=== PATIENT | male | born 1965 | race Caucasian/White ===

== ENCOUNTER 2016-07-19 10:51 | Inpatient (IN) | payer MEDICARE, OTHER ==
[2016-07-16 15:13] VITALS: BMI 29.2
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
[~2016-07-19 10:51] MED LIST: ACETAMINOPHEN IV (For NPO) 1,000 MG in EMPTY BAG 1 BAG IVPB ONE; DEXAMETHASONE SOD PHOSPHATE 10 MG/ML 1 ML VIAL IV ONE; HEPARIN SODIUM,PORCINE 5,000 UNIT/ML 1 ML VIAL SQ ONE; LACTATED RINGERS 1,000 ML IV SCH; ONDANSETRON 4 MG/2 ML VIAL IVP ONE; ceFAZolin 2 GM in SODIUM CHLORIDE 0.9% 100 ML IVPB ONE
[2016-07-19] MEDS ORDERED: VANCOMYCIN 1,500 MG in SODIUM CHLORIDE 0.9% 250 ML IVPB ONE (11:30)
[2016-07-19] MEDS ORDERED: LIDOCAINE 1% 20 ML VIAL (10MG/ML) FOR IV START INTRADERMA ONE (11:54)
[2016-07-19] MEDS ORDERED: MIDAZOLAM 2 MG/2 ML VIAL ONE (13:13)
[2016-07-19] MEDS ORDERED: ROCURONIUM BROMIDE 10 MG/ML 10 ML VIAL IV ONE (13:13)
[2016-07-19] MEDS ORDERED: NEOSTIGMINE 1 MG/ML 10 ML VIAL ONE (13:13)
[2016-07-19] MEDS ORDERED: SUCCINYLCHOLINE CHLORIDE 100 MG/5 ML SYR IV ONE (13:13)
[2016-07-19] MEDS ORDERED: LIDOCAINE 1% INJ 10MG/ML (20 ML MDV) ONE (13:13)
[2016-07-19] MEDS ORDERED: ePHEDrine 50 MG/ML 1 ML AMP ONE (13:13)
[2016-07-19] MEDS ORDERED: HYDROmorphone (PF) 1 MG/ML ONE (13:13)
[2016-07-19] MEDS ORDERED: PHENYLEPHRINE-0.9% NACL SYG 1 MG/10 ML SYRINGE ONE (13:13)
[2016-07-19] MEDS ORDERED: KETAMINE 10 MG/ML 20 ML VIAL ONE (13:13)
[2016-07-19] MEDS ORDERED: fentaNYL (PF) 50 MCG/ML 2 ML AMP ONE (13:13)
[2016-07-19] MEDS ORDERED: GLYCOPYRROLATE 0.2 MG/ML 2 ML VIAL ONE (13:13)
[2016-07-19] MEDS ORDERED: BUPIVACAIN-EPI 0.25%-1:200,000 30 ML VIAL SQ ONE (13:13)
[2016-07-19] MEDS ORDERED: PROPOFOL 10 MG/ML 20 ML VIAL IV ONE (13:13)
[2016-07-19] MEDS ORDERED: LACTATED RINGERS 1,000 ML IV ONE ×2 (14:02→16:24)
[2016-07-19] MEDS ORDERED: ONDANSETRON 4 MG/2 ML VIAL IVP PRN (17:03)
[2016-07-19] MEDS ORDERED: HYDROcodone/APAP 5-325MG 1 EACH TAB PO PRN (17:03)
[2016-07-19] MEDS ORDERED: NALOXONE 0.4 MG/ML 1 ML VIAL IV PRN ×2 (17:03→17:06)
--- NOTE | 2016-07-19 17:15 | P.PCN ---
Date of Procedure: 07/19/16 Preoperative Diagnosis: Chronic abdominal pain, history of multiple recurrent ventral hernia repairs, previous history of abdominal truncal skin third-degree multiple skin grafts, history of chronic MRSA infection Postoperative Diagnosis: Same, internal hernia of the greater omentum along lower abdomen, adhesions small bowel to mesh, acute appendicitis with appendicolith Procedure(s) Performed: Open removal of mesh, 15 x 20 cm, open appendectomy, takedown of internal hernia greater omentum to abdominal wall lower abdomen left, lysis of adhesions over 1 hour, bilateral rectus muscle advancement flap were 12 cm, repair of 20 x 12 cm recurrent ventral hernia without incarceration, placement of NINA drain peritoneal cavity, placement of NINA drain abdominal wall flap, abdominal washout 2 L Anesthesia: GETA, local (90) Surgeon: Elvia Juarez Estimated Blood Loss (ml): 150 Pathology: other (Mesh extraction, appendix with appendicoliths) Condition: stable Disposition: floor Operative Findings: Multiple appendicoliths with early appendicitis requiring appendectomy, internal hernia greater omentum to anterior abdominal wall lower abdomen resected, jejunum adhered to abdominal wall mesh lysed and freed from previous mesh repair
[2016-07-19] MEDS: HYDROmorphone 1 MG/ML 1 ML SYRINGE IVP PRN ×2 (17:35→17:40)
[2016-07-19] MEDS ORDERED: VANCOMYCIN 1,250 MG in SODIUM CHLORIDE 0.9% 250 ML IVPB SCH (18:30)
[2016-07-19] MEDS: HYDROmorphone PCA 5 MG/25 ML SYRINGE IV PRN (19:23)
[2016-07-19] MEDS: DEXTROSE 5%-0.9% NACL 1,000 ML IV SCH (19:29)
[2016-07-19] MEDS: METHYLPHENIDATE HCL 10 MG TAB PO SCH (19:33)
[2016-07-19] MEDS ORDERED: QUEtiapine 200 MG TAB PO SCH (21:00)
[2016-07-19] MEDS: SYMBICORT 160-4.5 MCG INHALER INHALATION SCH (21:15)
[2016-07-19] MEDS: lamoTRIgine 100 MG TAB PO SCH (21:36)
[2016-07-19] MEDS: clonazePAM 1 MG TAB PO SCH (21:40)
[2016-07-19 21:42] LABS: Basophils % (A) 0 %; CH 31.1; CHCM 33.1; Eosinophils # (A) 0.1 k/uL (0-0.7); Eosinophils % (A) 1 %; HCT 41.7 % (39.0-53.0); HDW 2.62; HGB 13.5 gm/dL (13.0-17.5); Luc % (Auto) 1; Lymphocytes # (A) 0.6 k/uL (1.0-4.8); Lymphocytes % (A) 5 %; MCH 30.5 pg (25.0-35.0); MCHC 32.3 g/dL (31.0-37.0); MCV 94.5 fL (80.0-100.0); Mean Platelet Volume 7.8; Monocytes # (A) 0.7 k/uL (0-1.0); Monocytes % (A) 5 %; Neutrophils # (A) 12.3 k/uL (1.3-7.7); Neutrophils % (A) 89 %; RBC 4.42 m/uL (4.30-5.90); RDW 14.1 % (11.5-15.5); WBC 13.9 k/uL (3.8-10.6); WBC (Perox) 14.31
[2016-07-19 21:58] LABS: Anion Gap 11 mmol/L; Blood Urea Nitrogen 15 mg/dL (9-20); Calcium 8.6 mg/dL (8.4-10.2); Carbon Dioxide 26 mmol/L (22-30); Chloride 105 mmol/L (98-107); Glucose 132 mg/dL (74-99); Iron 47 ug/dL (49-181); Non-African American GFR(MDRD) >60 (>60 ml/min/1.73 sqM); Phosphorous 3.9 mg/dL (2.5-4.5); Potassium 4.4 mmol/L (3.5-5.1); Sodium 142 mmol/L (137-145)
[2016-07-19 22:07] LABS: % Iron Saturation 17.8 % (20-50); Total Iron Binding Capacity 264 ug/dL (261-462)
[2016-07-20] MEDS ORDERED: HYDROcodone/APAP 5-325MG 1 EACH TAB ONE (03:00)
[2016-07-20] MEDS ORDERED: HYDROmorphone PCA 5 MG/25 ML SYRINGE IV ONE (03:00)
[2016-07-20 05:22] VITALS: RESP 16
[2016-07-20] MEDS: MAGNESIUM SULFATE-D5W PMX 1 GM in DEXTROSE/WATER 1 100ML.BAG IVPB SCH ×3 (05:45→05:48)
[2016-07-20] MEDS: DEXTROSE 5%-0.9% NACL 1,000 ML IV SCH ×2 (05:47→12:04)
[2016-07-20] MEDS ORDERED: LEVOTHYROXINE 50 MCG TAB PO SCH (06:30)
[2016-07-20] MEDS ORDERED: PANTOPRAZOLE 40 MG TABLET PO SCH (07:30)
[2016-07-20 07:34] LABS: Basophils % (A) 0 %; CH 30.9; CHCM 33.1; Eosinophils % (A) 0 %; HCT 39.2 % (39.0-53.0); HDW 2.58; HGB 12.9 gm/dL (13.0-17.5); Luc # (Auto) 0.14; Luc % (Auto) 1; Lymphocytes # (A) 1.3 k/uL (1.0-4.8); Lymphocytes % (A) 10 %; MCH 30.9 pg (25.0-35.0); MCHC 32.9 g/dL (31.0-37.0); MCV 93.8 fL (80.0-100.0); Mean Platelet Volume 7.8; Monocytes # (A) 0.6 k/uL (0-1.0); Monocytes % (A) 5 %; Neutrophils % (A) 83 %; RBC 4.18 m/uL (4.30-5.90); WBC (Perox) 12.52
[2016-07-20 07:38] LABS: Anion Gap 9 mmol/L; Blood Urea Nitrogen 12 mg/dL (9-20); Calcium 8.3 mg/dL (8.4-10.2); Carbon Dioxide 28 mmol/L (22-30); Chloride 105 mmol/L (98-107); Glucose 127 mg/dL (74-99); Magnesium 2.8 mg/dL (1.6-2.3); Non-African American GFR(MDRD) >60 (>60 ml/min/1.73 sqM); Phosphorous 3.6 mg/dL (2.5-4.5); Potassium 4.3 mmol/L (3.5-5.1); Sodium 142 mmol/L (137-145)
[2016-07-20] MEDS: SYMBICORT 160-4.5 MCG INHALER INHALATION SCH (07:48)
[2016-07-20] MEDS: HYDROmorphone PCA 5 MG/25 ML SYRINGE IV PRN (08:30)
[2016-07-20] MEDS: METHYLPHENIDATE HCL 10 MG TAB PO SCH (08:40)
[2016-07-20] MEDS: lamoTRIgine 100 MG TAB PO SCH (08:41)
[2016-07-20] MEDS: clonazePAM 1 MG TAB PO SCH (08:41)
[2016-07-20] MEDS ORDERED: SODIUM FERRIC GLUCONAT-SUCROSE 125 MG in SODIUM CHLORIDE 0.9% 100 ML IVPB SCH (09:00)
[2016-07-20] MEDS ORDERED: DESVENLAFAXINE SUCCINATE 50 MG TAB.ER.24H PO SCH (09:00)
[2016-07-20] MEDS ORDERED: buPROPion XL 300 MG TAB.ER.24H PO SCH (09:00)
[2016-07-20] MEDS ORDERED: ENOXAPARIN 40 MG/0.4 ML SYRINGE SQ SCH (09:00)
[2016-07-20] MEDS ORDERED: METOPROLOL SUCCINATE (ER) 50 MG TAB.ER.24H PO SCH (09:00)
[2016-07-20] MEDS ORDERED: LISINOPRIL 20 MG TAB PO SCH (09:00)
[2016-07-20] MEDS ORDERED: HYDROcodone/APAP 10-325MG 1 EACH TAB PO PRN ×2 (10:22→10:39)
--- NOTE | 2016-07-20 10:51 | P.DS ---
Providers Date of admission: 07/19/16 17:03 Expected date of discharge: 07/20/16 Attending physician: Elvia Juarez Primary care physician: [facility] Course: HISTORY OF PRESENT ILLNESS: El Renteria is a 50-year-old male who has a previous history of ventral hernia, which he reports increased pain from his mesh, including recurrence. He has a history of MRSA with chronic infections, which he is on suppressive therapy with Bactrim. He has a history of tobacco use , which he is now undergone tobacco cessation and counseling. His heaviest weight thus far has been 229 pounds. Today, he comes in weighing 213 pounds. In the idea of doing a soft tissue repair of his recurrent ventral hernia, he was asked to lose more weight and also stop smoking. Patient elected to proceed and underwent on July 19 Open removal of mesh, 15 x 20 cm, open appendectomy, takedown of internal hernia greater omentum to abdominal wall lower abdomen left, lysis of adhesions over 1 hour, bilateral rectus muscle advancement flap were 12 cm, repair of 20 x 12 cm recurrent ventral hernia without incarceration, placement of NINA drain peritoneal cavity, placement of NINA drain abdominal wall flap, abdominal washout 2 L There were no new postop events in the pain was under control patient was felt to be appropriate to be discharged on July 20 Impression discharge diagnosis Chronic abdominal pain History multiple recurrent ventral hernia repairs Previous history of an abdominal truncal skin third-degree multiple skin grafts , history of chronic MRSA infection Active tobacco abuse greater than 40 year history Procedure performed on July 19 Open removal of mesh, 15 x 20 cm, open appendectomy, takedown of internal hernia greater omentum to abdominal wall lower abdomen left, lysis of adhesions over 1 hour, bilateral rectus muscle advancement flap were 12 cm, repair of 20 x 12 cm recurrent ventral hernia without incarceration, placement of NINA drain peritoneal cavity, placement of NINA drain abdominal wall flap, abdominal washout 2 L The above dictated assessment and findings were discussed with dr davon Heard and the plan of care have been dictated as directed. Myrna Magallon nurse practitioner acting as a scribe for dr camejo Plan - Discharge Summary New Discharge Prescriptions: HYDROcodone/APAP 10-325MG [[place] 10-325] 1 tab PO Q6H PRN #30 tab PRN Reason: Mild To Moderate Pain Discharge Medication List Omeprazole [PriLOSEC] 40 mg PO AC-BRKFST 11/26/14 [History] Simvastatin [Zocor] 40 mg PO HS 03/03/14 [History] Levothyroxine Sodium [Synthroid] 50 mcg PO QAM 04/21/15 [History] Metoprolol Succinate (ER) [Toprol XL] 50 mg PO QAM 04/21/15 [History] lamoTRIgine [LaMICtal] 200 mg PO BID 04/21/15 [History] Budesonide/Formoterol Fumarate [Symbicort 160-4.5 Mcg Inhaler] 2 puff INHALATION RT-BID 03/06/16 [History] Desvenlafaxine Succinate [Pristiq ER] 50 mg PO DAILY 03/06/16 [History] Lisinopril [Zestril] 20 mg PO DAILY 03/06/16 [History] Methylphenidate HCl [Ritalin] 20 mg PO BID 03/06/16 [History] QUEtiapine FUMARATE [SEROquel] 600 mg PO HS 03/06/16 [History] clonazePAM [KlonoPIN] 1 mg PO BID 03/06/16 [History] Hydrocodone/Acetaminophen [Hydrocodon-Acetaminophn 10-325] 1 tab PO TID PRN 01/22 [History] buPROPion HCL [Wellbutrin XL] 300 mg PO DAILY 07/16/16 [History] HYDROcodone/APAP 10-325MG [[place] 10-325] 1 tab PO Q6H PRN #30 tab 07/20/16 [Rx] Follow up Appointment(s)/Referral(s): Elvia Juarez MD [STAFF PHYSICIAN] - 07/24/16 (Please call to confirm time) Patient Instructions/Handouts: Reza-Garcia Drain Care (DC), Abdominal Binder (DC), Ventral Hernia Repair (GEN) Activity/Diet/Wound Care/Special Instructions: No lifting over 4 pounds in 4 weeks. NINA drain care. No bathtub soaks until cleared by surgeon. Patient has been advised to stop smoking cigarettes smoking cessation information provided Discharge Disposition: HOME SELF-CARE
[2016-07-20 12:11] VITALS: PULSE 106
[2016-07-20 12:12] VITALS: BP 127/77; TEMP 97.7
--- NOTE | 2016-08-11 16:26 | P.OP ---
Date of Procedure: 07/19/16 Description of Procedure: SURGEON: SAIRA MCLAUGHLIN MD MIXING OPERATOR: TIM KAYE PREOPERATIVE DIAGNOSES: 1. Recurrent incision ventral hernia, epigastrium. 2. Epigastric abdominal pain. 3. Gastroesophageal reflux disease. 4. Hypertensive heart disease without heart failure. 5. Seizure disorders. 6. Obstructive sleep apnea. 7. History of methicillin-resistant staph aureus infection. 8. Chronic bronchitis. 9. History of bilateral lower abdominal pain. 10. History of tobacco use. 11. History of multiple second third-degree pounds along the anterior chest and trunk with multiple skin grafts. 12. Chronic abdominal pain. POSTOPERATIVE DIAGNOSES: 1. Recurrent incision ventral hernia, epigastrium, 20 x 12 cm. 2. Epigastric abdominal pain. 3. Gastroesophageal reflux disease. 4. Hypertensive heart disease without heart failure. 5. Seizure disorders. 6. Obstructive sleep apnea. 7. History of methicillin-resistant staph aureus infection. 8. Chronic bronchitis. 9. History of bilateral lower abdominal pain. 10. History of tobacco use. 11. History of multiple second third-degree pounds along the anterior chest and trunk with multiple skin grafts. 12. Appendicitis. 13. History of foreign body epigastrium. 14. Severe intra-abdominal adhesions with peritoneal adhesions and interloop adhesions. 15. Chronic abdominal pain. 16. Internal hernia. OPERATION: 1. Open removal of foreign body/mesh, 15 x 20 cm 2. Open appendectomy 3. Takedown of internal hernia greater omentum to abdominal wall lower abdomen left 4. Lysis of adhesions over 1 hour 5. Bilateral rectus muscle advancement flap were 12 cm with repair of 20 x 12 cm recurrent ventral incisional hernia without incarceration 6. Placement of NINA drain peritoneal cavity, right drain. 7. Placement of NINA drain abdominal wall flap, left drain. 8. Abdominal washout 2 L ANESTHESIA: General with 90 mL of 0.25% sensorcaine with epinephrine and normal saline mixture. ESTIMATED BLOOD LOSS: 150 mL SPECIMENS REMOVED: Mesh extraction, appendix with appendicoliths COMPLICATIONS: None. CONDITION: Stable. DRAINS: Two #19 Bernardo drains below abdominal flap extending through the pubis. OPERATIVE FINDINGS: 1. Multiple appendicoliths with early appendicitis requiring appendectomy. 2. Internal hernia greater omentum to anterior abdominal wall lower abdomen resected 3. Jejunum adhered to abdominal wall mesh lysed and freed from previous mesh repair INDICATIONS: The patient is a 50-year-old gentleman who reports chronic abdominal pain following multiple abdominal wall hernia repairs with mesh for many years. He has history of mesh placement and reports severe epigastric abdominal pain with recurrence of his incisional ventral hernia. With a history of active tobacco use as well as intolerance of mesh, he presented to the office requesting resection and removal of this mesh. Surgical intervention with an open ventral hernia with mesh extraction and abdominal wall reconstruction was described. He underwent dietary surveillance and counseling with weight loss preop. Patient was advised to undergo complete tobacco cessation prior to his operation as well. Benefits and risks of procedure however not limited to bleeding, infection, recurrence, chronic pain, need for further surgery were described at length. Informed consent was obtained. DESCRIPTION: The patient was brought into the operating room and laid in supine position. After general induction, a Herr catheter was placed. The abdomen was then prepped and draped in standard sterile fashion using ChloraPrep. Ioban drape was placed. Preoperative antibiotics were administered. A timeout protocol was confirmed with the surgical team regarding the patient's name, procedure to be performed, including preoperative medications. Once the time-out protocol was confirmed with the surgical team, the patient was re-marked with indelible marker whereby the midline of the xiphoid to the mons pubis was marked. The recurrent ventral hernia was palpated to be a defect at least over 10 cm of the epigastrium. A midline incision using #10 blade was then performed after anesthetizing the subcutaneous tissue and fascia along its midline and periphery. Carefully, the incision was taken to the subcutaneous tissue and into the fascia whereby another mesh was found deep to the subcutaneous tissue but anterior to the fascial plane. Carefully the abdomen was entered at the level of the xiphoid whereby the edge of the mesh was identified. The fascia was elevated using Morgan clamps and retracted laterally. Using sharp dissection and a #10 blade, the mesh was resected from the fascia and its sutures were cut. Next, dense adhesions of the small bowel to the mesh was identified and also carefully lysed using blunt including sharp dissection with Metzenbaum scissors without any enterotomies. The mesh was resected in total consistent with a 15 x 20 cm mesh and passed off for further pathological analysis. The rest of the abdomen was inspected from the ligament of Treitz to the ileocecal valve for any interloop adhesions. Along the lower pelvis, an internal hernia of the greater omentum to the lower pelvis was identified consistent with his area of pain and divided using LigaSure. Similarly along the base of the cecum the appendix was identified with multiple appendicoliths and hyperemic consistent with early appendicitis. The appendix was resected along the base using a stapler and passed off for further pathological analysis. Hemostasis was checked. Interloop adhesions between the jejunum and greater omentum to the small bowel were also similarly lysed using electro-Bovie cautery including sharp dissection without enterotomies. The abdomen was copiously irrigated with 2 L of warm normal saline solution. A round #19 Bernardo drain was placed into the abdominal cavity of the lower pelvis as moderate irrigation was used. The drain was brought out via the right lower abdominal wall and tacked to the skin using 2-0 nylon. Next attention was brought to the elevation of bilateral muscle flap advancement of the rectus muscle. The rectus abdominus fascia was palpated and the subcutaneous plane was developed towards the lateral border of the rectus muscle to the external oblique fascia. The rectus abdominis was mobilized such that the wide fascial epigastric defect had easily overlap at least 2-3 cm to close the 20 x 12 cm defect. The peritoneal cavity and abdomen was initially closed using double-stranded 0 PDS. Next, starting from the xiphoid process, fascial imbrication with bilateral musculocutaneous flap advancement was performed using #2 Ethibond. Multiple facial imbrications at least 3 layers were performed. The ventral hernia defect was completely repaired and closed. For postop analgesia, 0.25% sensorcaine with epineprhine and normal saline mixture was infiltrated along the midline and fascia. A #19 round Reza-Garcia drain was placed via the left lower abdomen deep to the subcutaneous tissue flap. A 2-0 nylon stitch was used to tack the NINA tubing to the skin. Hemostasis was once again checked with electro-Bovie cautery and all defects were addressed. The subcutaneous flaps were reapproximated at the midline with skin ashli. Once reapproximated, the skin was closed in layers using 0 Vicryl for the superficial fascial system followed by running 3- 0 Monocryl for the deep dermis. Once the incision was closed, bulb suction was attached. At the end of the procedure, the needle, sponge and instrument count was verified correct. Antibiotic Optifoam sponge dressing was placed over the incision following Dermabond tape. Antibiotic CHG Tegaderm was placed over the NINA exit sites. The patient was then transferred to a hospital bed. An abdominal binder was placed and marked. The patient was taken to the postanesthesia care unit in stable condition, awake and extubated. Intraoperative findings were discussed with the patient's family who were pleased with the level of care.
== END 2016-07-20 13:16 | disposition home or self-care (01) | DRG 336 ==
LOC: OR 10:51 → EDSTATUS 12:30 → 3SUR 17:03
PROVIDERS: ADMIT Surgery Plastic and Reconstructive Surgery; ATTEND Surgery Plastic and Reconstructive Surgery
PROC: 0DNA0ZZ Release Jejunum, Open Approach (ICD-10-PCS; principal; 2016-07-19 12:30)
PROC: 0WQF0ZZ Repair Abdominal Wall, Open Approach (ICD-10-PCS; principal; 2016-07-19 12:30)
PROC: 0DN80ZZ Release Small Intestine, Open Approach (ICD-10-PCS; principal; 2016-07-19 12:30)
PROC: 0DNS0ZZ (ICD-10-PCS; principal; 2016-07-19 12:30)
PROC: 0KX10ZZ Transfer Facial Muscle, Open Approach (ICD-10-PCS; principal; 2016-07-19 12:30)
PROC: 0WPF0JZ Removal of Synthetic Substitute from Abdominal Wall, Open Approach (ICD-10-PCS; principal; 2016-07-19 12:30)
PROC: 0DTJ0ZZ Resection of Appendix, Open Approach (ICD-10-PCS; principal; 2016-07-19 12:30)
DX: K43.2 Incisional hernia without obstruction or gangrene (principal); K35.80 Unspecified acute appendicitis; I11.9 Hypertensive heart disease without heart failure; F32.9 Major depressive disorder, single episode, unspecified; E78.5 Hyperlipidemia, unspecified; E66.9 Obesity, unspecified; F41.0 Panic disorder [episodic paroxysmal anxiety]; F90.9 Attention-deficit hyperactivity disorder, unspecified type; G40.909 Epilepsy, unspecified, not intractable, without status epilepticus; G47.30 Sleep apnea, unspecified; G89.29 Other chronic pain; I51.7 Cardiomegaly; J42 Unspecified chronic bronchitis; K21.9 Gastro-esophageal reflux disease without esophagitis; K38.1 Appendicular concretions; K66.0 Peritoneal adhesions (postprocedural) (postinfection); Z72.0 Tobacco use; Z79.899 Other long term (current) drug therapy; Z80.7 Family history of other malignant neoplasms of lymphoid, hematopoietic and related tissues; Z86.14 Personal history of Methicillin resistant Staphylococcus aureus infection; Z98.84 Bariatric surgery status; G47.33 Obstructive sleep apnea (adult) (pediatric)
CPT/HCPCS: 80048; 82728; 83540; 83550; 83735; 84100; 85025; 88302; 93005; 94640; 94760

== ENCOUNTER 2016-07-21 17:56 | Inpatient (IN) | payer MEDICARE ==
[2016-07-21] MEDS ORDERED: ACETAMINOPHEN TAB 500 MG TAB PO STA (18:25)
[2016-07-21] MEDS ORDERED: HYDROmorphone 1 MG/ML 1 ML SYRINGE IVP STA ×2 (18:25→20:39)
[2016-07-21] MEDS ORDERED: ONDANSETRON 4 MG/2 ML VIAL IVP STA ×2 (18:25→21:09)
--- NOTE | 2016-07-21 18:29 | ED ---
General Adult HPI - General Chief complaint: Nausea/Vomiting/Diarrhea Stated complaint: POST OP, PALE, FEVER, NAUSEA Time Seen by Provider: 07/21/16 18:10 Source: patient, RN notes reviewed Mode of arrival: wheelchair - History of Present Illness Initial comments: This is a 50-year-old male who was discharged from the hospital yesterday according to the patient he was initially brought into take some mesh out from a previous hernia repair and during the surgery the surgeon took out his appendix and repaired another hernia. Patient states he was told he would states on Saturday however another physician he claims came into the room and discharged within 24 hours of his surgery. Patient states ever since she's been home and has been vomiting and he has a low-grade fever and his been unable to keep any of his pain medicines down. Patient states his abdomen is severely tender mostly in the center but is significantly tender everywhere else. Patient denies any cough and he states if he does cough it hurts his abdomen severely. Patient denies any dysuria or hematuria. - Related Data Home Medications Medication Instructions Recorded Confirmed Omeprazole [PriLOSEC] 40 mg PO AC-BRKFST 03/03/14 07/21/16 Simvastatin [Zocor] 40 mg PO HS 03/03/14 07/21/16 Levothyroxine Sodium [Synthroid] 50 mcg PO QAM 04/21/15 07/21/16 Metoprolol Succinate (ER) [Toprol 50 mg PO QAM 04/21/15 07/21/16 XL] lamoTRIgine [LaMICtal] 200 mg PO BID 04/21/15 07/21/16 Budesonide/Formoterol Fumarate 2 puff INHALATION RT-BID 03/06/16 07/21/16 [Symbicort 160-4.5 Mcg Inhaler] Desvenlafaxine Succinate [Pristiq 50 mg PO DAILY 03/06/16 07/21/16 ER] Lisinopril [Zestril] 20 mg PO DAILY 03/06/16 07/21/16 Methylphenidate HCl [Ritalin] 20 mg PO BID 03/06/16 07/21/16 QUEtiapine FUMARATE [SEROquel] 600 mg PO HS 03/06/16 07/21/16 clonazePAM [KlonoPIN] 1 mg PO BID 03/06/16 07/21/16 Hydrocodone/Acetaminophen 1 tab PO TID PRN 07/16/16 07/21/16 [Hydrocodon-Acetaminophn 10-325] buPROPion HCL [Wellbutrin XL] 300 mg PO DAILY 07/16/16 07/21/16 Previous Rx's Medication Instructions Recorded HYDROcodone/APAP 10-325MG [[place] 1 tab PO Q6H PRN #30 tab 07/20/16 10-325] Allergies Allergy/AdvReac Type Severity Reaction Status Date / Time No Known Allergies Allergy Verified 07/21/16 18:44 Review of Systems ROS Statement: Those systems with pertinent positive or pertinent negative responses have been documented in the HPI. ROS Other: All systems not noted in ROS Statement are negative. Past Medical History Past Medical History: GERD/Reflux, Hyperlipidemia, Hypertension, Musculoskeletal Disorder, Pneumonia, Respiratory Disorder, Seizure Disorder, Skin Disorder, Sleep Apnea/CPAP/BIPAP, Thyroid Disorder Additional Past Medical History / Comment(s): HX ABSCESSES LEGS, CELLULTIS. HX SEIZURE X2, 2011, BIT PART OF TONGUE OFF. NOT ABLE TO USE BIPAP. OLD FX BACK, 2002. HX MRSA Neck/Face/RT THIGH/LT CALF. ENLARGED HEART. CHRONIC BRONCHITIS. History of Any Multi-Drug Resistant Organisms: MRSA Date of last positivie culture/infection: 03/07/16 MDRO Source:: LEFT LEG Past Surgical History: Adenoidectomy, Cholecystectomy, Heart Catheterization, Hernia Repair, Tonsillectomy Additional Past Surgical History / Comment(s): ABD HERNIA SURG X3; LAP BAND 2010 EST. 15 LAP REMOVAL OF LAP BAND AND PORT. COLONOSCOPY, EGD. EXC Areas of MRSA on face, neck, LEGS 2016. Past Anesthesia/Blood Transfusion Reactions: Previous Problems w/ Anesthesia Additional Past Anesthesia/Blood Transfusion Reaction / Comment(s): 1984 DURING T&A SURG, DEVELOPED FLUID IN LUNGS, PUT ON VENT. Past Psychological History: ADD/ADHD, Anxiety, Bipolar, Depression, Panic Disorder Smoking Status: Never smoker Past Alcohol Use History: None Reported Additional Past Alcohol Use History / Comment(s): HX SMOKING OFF/ON SINCE AGE 12 , UP TO 1 PPD, QUIT 1 MONTH. Past Drug Use History: Cocaine, Marijuana Additional Drug Use History / Comment(s): USING MEDICAL MARIJUANA, DAILY. (PT STATED WENT TO REHAB IN 1998 D/T USE OF COCAINE/CRACK) - Past Family History Mother Family Medical History: No Reported History Additional Family Medical History / Comment(s): PT STATED MOM IS HEALTHY Father Family Medical History: Cancer Additional Family Medical History / Comment(s): LYMPHOMA General Exam - General Exam Comments Initial Comments: GENERAL: Patient is well-developed and well-nourished. Patient is nontoxic and well- hydrated and is in moderate distress. ENT: Neck is soft and supple. No significant lymphadenopathy is noted. Oropharynx is clear. Moist mucous membranes. Neck has full range of motion without eliciting any pain. EYES: The sclera were anicteric and conjunctiva were pink and moist. Extraocular movements were intact and pupils were equal round and reactive to light. Eyelids were unremarkable. PULMONARY: Unlabored respirations. Good breath sounds bilaterally. No audible rales rhonchi or wheezing was noted. CARDIOVASCULAR: There is a regular rate and rhythm without any murmurs gallops or rubs. ABDOMEN: Abdomen is tender diffusely and patient does have rebound tenderness SKIN: Skin is clear with no lesions or rashes and otherwise unremarkable. NEUROLOGIC: Patient is alert and oriented x3. Cranial nerves II through XII are grossly intact. Motor and sensory are also intact. Normal speech, volume and content. Symmetrical smile. MUSCULOSKELETAL: Normal extremities with adequate strength and full range of motion. No lower extremity swelling or edema. No calf tenderness. PSYCHIATRIC: Normal psychiatric evaluation. Normal interpersonal interactions appears functionally intact in deals appropriately with others. No signs of depression. No signs of anxiety. Course Vital Signs 07/21/16 07/21/16 07/21/16 18:11 19:12 20:03 Temperature 100.4 F H 99.3 F 101.0 F H Pulse Rate 92 95 89 Respiratory 17 18 20 Rate Blood Pressure 127/85 137/80 137/78 O2 Sat by Pulse 92 L 96 99 Oximetry 07/21/16 07/21/16 20:53 21:11 Temperature 100.3 F H Pulse Rate 93 Respiratory 18 Rate Blood Pressure 145/91 O2 Sat by Pulse 95 Oximetry Medical Decision Making - Medical Decision Making EKG shows a normal sinus rhythm at 91 bpm IN interval is 172 QRS is 104 QT interval 370 QTC is 464. Patient's EKG shows no ST segment elevation or depression or T-wave abnormality is noted. I ordered a CT of the chest and abdomen and pelvis. Dr. Carbajal came down and saw the patient in the emergency department I will be admitting the patient to Dr. Carbajal - Lab Data Result diagrams: 07/21/16 18:32 07/21/16 18:32 Lab Results 07/21/16 07/21/16 07/21/16 Range/Units 18:32 18:32 18:32 WBC 11.4 H (3.8-10.6) k/uL RBC 4.28 L (4.30-5.90) m/uL Hgb 13.3 (13.0-17.5) gm/dL Hct 40.1 (39.0-53.0) % MCV 93.7 (80.0-100.0) fL MCH 31.2 (25.0-35.0) pg MCHC 33.3 (31.0-37.0) g/dL RDW 13.9 (11.5-15.5) % Plt Count 181 (150-450) k/uL Neutrophils % 82 % Lymphocytes % 9 % Monocytes % 7 % Eosinophils % 1 % Basophils % 0 % Neutrophils # 9.3 H (1.3-7.7) k/uL Lymphocytes # 1.0 (1.0-4.8) k/uL Monocytes # 0.8 (0-1.0) k/uL Eosinophils # 0.1 (0-0.7) k/uL Basophils # 0.0 (0-0.2) k/uL PT (9.0-12.0) sec INR (<1.1) APTT (22.0-30.0) sec Sodium 140 (137-145) mmol/L Potassium 4.3 (3.5-5.1) mmol/L Chloride 106 (98-107) mmol/L Carbon Dioxide 25 (22-30) mmol/L Anion Gap 9 mmol/L BUN 13 (9-20) mg/dL Creatinine 1.02 (0.66-1.25) mg/dL Est GFR (MDRD) Af Amer >60 (>60 ml/min/1.73 sqM) Est GFR (MDRD) Non-Af >60 (>60 ml/min/1.73 sqM) Glucose 98 (74-99) mg/dL Plasma Lactic Acid Josiah 1.1 (0.7-2.0) mmol/L Calcium 9.0 (8.4-10.2) mg/dL Total Bilirubin 1.3 (0.2-1.3) mg/dL AST 36 (17-59) U/L ALT 33 (21-72) U/L Alkaline Phosphatase 119 (38-126) U/L Total Protein 6.5 (6.3-8.2) g/dL Albumin 3.6 (3.5-5.0) g/dL Urine Color Urine Appearance (Clear) Urine pH (5.0-8.0) Ur Specific [place] (1.001-1.035) Urine Protein (Negative) Urine Glucose (UA) (Negative) Urine Ketones (Negative) Urine Blood (Negative) Urine Nitrite (Negative) Urine Bilirubin (Negative) Urine Urobilinogen (<2.0) mg/dL Ur Leukocyte Esterase (Negative) Urine RBC (0-5) /hpf Urine WBC (0-5) /hpf Urine Mucus (None) /hpf 07/21/16 07/21/16 Range/Units 18:32 19:34 WBC (3.8-10.6) k/uL RBC (4.30-5.90) m/uL Hgb (13.0-17.5) gm/dL Hct (39.0-53.0) % MCV (80.0-100.0) fL MCH (25.0-35.0) pg MCHC (31.0-37.0) g/dL RDW (11.5-15.5) % Plt Count (150-450) k/uL Neutrophils % % Lymphocytes % % Monocytes % % Eosinophils % % Basophils % % Neutrophils # (1.3-7.7) k/uL Lymphocytes # (1.0-4.8) k/uL Monocytes # (0-1.0) k/uL Eosinophils # (0-0.7) k/uL Basophils # (0-0.2) k/uL PT 12.2 H (9.0-12.0) sec INR 1.2 (<1.1) APTT 27.0 (22.0-30.0) sec Sodium (137-145) mmol/L Potassium (3.5-5.1) mmol/L Chloride (98-107) mmol/L Carbon Dioxide (22-30) mmol/L Anion Gap mmol/L BUN (9-20) mg/dL Creatinine (0.66-1.25) mg/dL Est GFR (MDRD) Af Amer (>60 ml/min/1.73 sqM) Est GFR (MDRD) Non-Af (>60 ml/min/1.73 sqM) Glucose (74-99) mg/dL Plasma Lactic Acid Josiah (0.7-2.0) mmol/L Calcium (8.4-10.2) mg/dL Total Bilirubin (0.2-1.3) mg/dL AST (17-59) U/L ALT (21-72) U/L Alkaline Phosphatase (38-126) U/L Total Protein (6.3-8.2) g/dL Albumin (3.5-5.0) g/dL Urine Color Yellow Urine Appearance Clear (Clear) Urine pH 7.0 (5.0-8.0) Ur Specific [place] 1.024 (1.001-1.035) Urine Protein 1+ H (Negative) Urine Glucose (UA) Negative (Negative) Urine Ketones 2+ H (Negative) Urine Blood Negative (Negative) Urine Nitrite Negative (Negative) Urine Bilirubin 1+ H (Negative) Urine Urobilinogen 2.0 (<2.0) mg/dL Ur Leukocyte Esterase Negative (Negative) Urine RBC 11 H (0-5) /hpf Urine WBC 3 (0-5) /hpf Urine Mucus Rare H (None) /hpf Disposition Clinical Impression: Postoperative abdominal pain, Acute vomiting Disposition: ADMITTED IP TO THIS [facility] Time of Disposition: 22:15
[2016-07-21] MEDS: SODIUM CHLORIDE 0.9% 500 ML IV SCH ×2 (18:42→19:37)
[2016-07-21 18:47] LABS: Basophils % (A) 0 %; CH 31.2; CHCM 33.5; Eosinophils # (A) 0.1 k/uL (0-0.7); Eosinophils % (A) 1 %; HCT 40.1 % (39.0-53.0); HGB 13.3 gm/dL (13.0-17.5); Luc # (Auto) 0.16; Luc % (Auto) 1; Lymphocytes % (A) 9 %; MCH 31.2 pg (25.0-35.0); MCHC 33.3 g/dL (31.0-37.0); MCV 93.7 fL (80.0-100.0); Mean Platelet Volume 7.4; Monocytes # (A) 0.8 k/uL (0-1.0); Monocytes % (A) 7 %; Neutrophils # (A) 9.3 k/uL (1.3-7.7); Neutrophils % (A) 82 %; RBC 4.28 m/uL (4.30-5.90); RDW 13.9 % (11.5-15.5); WBC 11.4 k/uL (3.8-10.6); WBC (Perox) 11.55
[2016-07-21 18:56] LABS: INR 1.2 (<1.1); Prothrombin Time 12.2 sec (9.0-12.0)
[2016-07-21 19:09] LABS: ALT 33 U/L (21-72); AST 36 U/L (17-59); Alkaline Phosphatase 119 U/L (38-126); Anion Gap 9 mmol/L; Blood Urea Nitrogen 13 mg/dL (9-20); Carbon Dioxide 25 mmol/L (22-30); Chloride 106 mmol/L (98-107); Glucose 98 mg/dL (74-99); Non-African American GFR(MDRD) >60 (>60 ml/min/1.73 sqM); Potassium 4.3 mmol/L (3.5-5.1); Sodium 140 mmol/L (137-145); Total Bilirubin 1.3 mg/dL (0.2-1.3); Total Protein 6.5 g/dL (6.3-8.2)
[2016-07-21] MEDS ORDERED: IBUPROFEN 600 MG TAB PO STA (20:02)
[2016-07-21 20:15] LABS: Appearance,Urine Clear (Clear); Bilirubin,Urine 1+ (Negative); Glucose,Urine (UA) Negative (Negative); Ketones,Urine 2+ (Negative); Leukocyte Esterase,Urine Negative (Negative); Mucus,Urine Rare /hpf; Nitrite,Urine Negative (Negative); Particle Count 4259; Protein,Urine 1+ (Negative); RBC,Urine 11 /hpf (0-5); Specific Gravity,Urine 1.024 (1.001-1.035); UA Billing (MACRO vs. MICRO) MICRO; WBC,Urine 3 /hpf (0-5)
[2016-07-21] MEDS ORDERED: PIPERACILLIN-TAZOBACTAM 3.375 GM in DEXTROSE/WATER 1 50ML.BAG IVPB STA (20:34)
[2016-07-21] MEDS ORDERED: IOHEXOL 350 MG/ML 25 ML BOTTLE (ORAL USE) PO PRN (20:35)
[2016-07-21] MEDS ORDERED: RX INFO: IV CONTRAST WAS GIVEN 1 EACH MISC MISCELLANE PRN (20:35)
[2016-07-21] MEDS ORDERED: SODIUM CHLORIDE 0.9% 1,000 ML IV ONE (22:15)
--- NOTE | 2016-07-21 22:24 | P.GSHP ---
History of Present Illness H&P Date: 07/21/16 Chief Complaint: Abdominal pain, nausea and vomiting, constipation 1-year-old male who had a rectus muscle advancement for recurrent ventral hernia repair with excision of mesh presents with significant amount of pain tachycardia and low-grade fever or inability to pass flatus and have bowel movements. She has been using now, but it has not been working well for him. He is having a lot of headaches, lightheadedness or dizziness or loss of function. He is ambulating but with difficulty. He's had serosanguineous discharge from the NINA drain on the left side without any drainage in the right side. He has not complained of any chest pain. He has not got true shortness of breath but is not taking proper and deep breaths at this time. He says is having headaches but no visual changes. He is unable to drink anything or even drink enough to be able to take his medications although he has tolerated oral contrast in the last hour or so. Last bowel movement was prior to surgery. He reports that his urine is pretty dark in color. - Constitutional Constitutional: Reports anorexia, Reports lethargy, Reports malaise - Cardiovascular Cardiovascular: Denies chest pain, Denies claudication - Respiratory Respiratory: Reports as per HPI - Gastrointestinal Gastrointestinal: Reports as per HPI - Genitourinary (Female) Genitourinary: Denies dysuria Past Medical History Past Medical History: GERD/Reflux, Hyperlipidemia, Hypertension, Musculoskeletal Disorder, Pneumonia, Respiratory Disorder, Seizure Disorder, Skin Disorder, Sleep Apnea/CPAP/BIPAP, Thyroid Disorder Additional Past Medical History / Comment(s): HX ABSCESSES LEGS, CELLULTIS. HX SEIZURE X2, 2011, BIT PART OF TONGUE OFF. NOT ABLE TO USE BIPAP. OLD FX BACK, 2002. HX MRSA Neck/Face/RT THIGH/LT CALF. ENLARGED HEART. CHRONIC BRONCHITIS. History of Any Multi-Drug Resistant Organisms: MRSA Date of last positivie culture/infection: 03/07/16 MDRO Source:: LEFT LEG Past Surgical History: Adenoidectomy, Cholecystectomy, Heart Catheterization, Hernia Repair, Tonsillectomy Additional Past Surgical History / Comment(s): ABD HERNIA SURG X3; LAP BAND 2009 EST. 06-15-14 LAP REMOVAL OF LAP BAND AND PORT. COLONOSCOPY, EGD. EXC Areas of MRSA on face, neck, LEGS 2016. Past Anesthesia/Blood Transfusion Reactions: Previous Problems w/ Anesthesia Additional Past Anesthesia/Blood Transfusion Reaction / Comment(s): 1985 DURING T&A SURG, DEVELOPED FLUID IN LUNGS, PUT ON VENT. Past Psychological History: ADD/ADHD, Anxiety, Bipolar, Depression, Panic Disorder Smoking Status: Never smoker Past Alcohol Use History: None Reported Additional Past Alcohol Use History / Comment(s): HX SMOKING OFF/ON SINCE AGE 12 , UP TO 1 PPD, QUIT 1 MONTH. Past Drug Use History: Cocaine, Marijuana Additional Drug Use History / Comment(s): USING MEDICAL MARIJUANA, DAILY. (PT STATED WENT TO REHAB IN 1998 D/T USE OF COCAINE/CRACK) - Past Family History Mother Family Medical History: No Reported History Additional Family Medical History / Comment(s): PT STATED MOM IS HEALTHY Father Family Medical History: Cancer Additional Family Medical History / Comment(s): LYMPHOMA Medications and Allergies Home Medications Medication Instructions Recorded Confirmed Type Omeprazole [PriLOSEC] 40 mg PO AC-BRKFST 03/03/14 07/21/16 History Simvastatin [Zocor] 40 mg PO HS 03/03/14 07/21/16 History Levothyroxine Sodium [Synthroid] 50 mcg PO QAM 04/21/15 07/21/16 History Metoprolol Succinate (ER) [Toprol 50 mg PO QAM 04/21/15 07/21/16 History XL] lamoTRIgine [LaMICtal] 200 mg PO BID 04/21/15 07/21/16 History Budesonide/Formoterol Fumarate 2 puff INHALATION RT-BID 03/06/16 07/21/16 History [Symbicort 160-4.5 Mcg Inhaler] Desvenlafaxine Succinate [Pristiq 50 mg PO DAILY 03/06/16 07/21/16 History ER] Lisinopril [Zestril] 20 mg PO DAILY 03/06/16 07/21/16 History Methylphenidate HCl [Ritalin] 20 mg PO BID 03/06/16 07/21/16 History QUEtiapine FUMARATE [SEROquel] 600 mg PO HS 03/06/16 07/21/16 History clonazePAM [KlonoPIN] 1 mg PO BID 03/06/16 07/21/16 History Hydrocodone/Acetaminophen 1 tab PO TID PRN 07/16/16 07/21/16 History [Hydrocodon-Acetaminophn 10-325] buPROPion HCL [Wellbutrin XL] 300 mg PO DAILY 07/16/16 07/21/16 History Allergies Allergy/AdvReac Type Severity Reaction Status Date / Time No Known Allergies Allergy Verified 07/21/16 18:44 Surgical - Exam Vital Signs Temp Pulse Resp BP Pulse Ox 100.4 F H 92 17 127/85 92 L 07/21/16 18:11 07/21/16 18:11 07/21/16 18:11 07/21/16 18:11 07/21/16 18:11 - General moderate distress - Eyes PERRL, no pale, no icteric, no deviation, no loss of movement - ENT normal pinna, normal nares, normal mucosa, no hearing loss - Neck no masses - Cardiovascular Rhythm: regular - Abdomen Abdomen: tender, surgical scars, wound, rigid Hernia: none - Integumentary no rash, no growths - Neurologic normal coordination, no disoriented, no confused Results - Labs 07/21/16 18:32 07/21/16 18:32 Abnormal Lab Results - Last 24 Hours (Table) 07/21/16 07/21/16 07/21/16 Range/Units 18:32 18:32 19:34 WBC 11.4 H (3.8-10.6) k/uL RBC 4.28 L (4.30-5.90) m/uL Neutrophils # 9.3 H (1.3-7.7) k/uL PT 12.2 H (9.0-12.0) sec Urine Protein 1+ H (Negative) Urine Ketones 2+ H (Negative) Urine Bilirubin 1+ H (Negative) Urine RBC 11 H (0-5) /hpf Urine Mucus Rare H (None) /hpf Diabetes panel 07/21/16 Range/Units 18:32 Sodium 140 (137-145) mmol/L Potassium 4.3 (3.5-5.1) mmol/L Chloride 106 (98-107) mmol/L Carbon Dioxide 25 (22-30) mmol/L BUN 13 (9-20) mg/dL Creatinine 1.02 (0.66-1.25) mg/dL Glucose 98 (74-99) mg/dL Calcium 9.0 (8.4-10.2) mg/dL AST 36 (17-59) U/L ALT 33 (21-72) U/L Alkaline Phosphatase 119 (38-126) U/L Total Protein 6.5 (6.3-8.2) g/dL Albumin 3.6 (3.5-5.0) g/dL Calcium panel 07/21/16 Range/Units 18:32 Calcium 9.0 (8.4-10.2) mg/dL Albumin 3.6 (3.5-5.0) g/dL Pituitary panel 07/21/16 Range/Units 18:32 Sodium 140 (137-145) mmol/L Potassium 4.3 (3.5-5.1) mmol/L Chloride 106 (98-107) mmol/L Carbon Dioxide 25 (22-30) mmol/L BUN 13 (9-20) mg/dL Creatinine 1.02 (0.66-1.25) mg/dL Glucose 98 (74-99) mg/dL Calcium 9.0 (8.4-10.2) mg/dL Adrenal panel 07/21/16 Range/Units 18:32 Sodium 140 (137-145) mmol/L Potassium 4.3 (3.5-5.1) mmol/L Chloride 106 (98-107) mmol/L Carbon Dioxide 25 (22-30) mmol/L BUN 13 (9-20) mg/dL Creatinine 1.02 (0.66-1.25) mg/dL Glucose 98 (74-99) mg/dL Calcium 9.0 (8.4-10.2) mg/dL Total Bilirubin 1.3 (0.2-1.3) mg/dL AST 36 (17-59) U/L ALT 33 (21-72) U/L Alkaline Phosphatase 119 (38-126) U/L Total Protein 6.5 (6.3-8.2) g/dL Albumin 3.6 (3.5-5.0) g/dL Assessment and Plan (1) Postoperative abdominal pain Status: Acute (2) MRSA (methicillin resistant Staphylococcus aureus) infection Status: Acute (3) Ventral hernia Status: Acute Plan: 1 febrile 2 leukocytosis 3 tachycardia next line 4 possible sirs 5 abdominal pain 6- Sleep apnea 7- MRSA infections 8- Hypertension Patient has been previously seen by me in believe this is primarily issues with pain control as well as constipation. He also probably not taking enough deep breaths due to the severe abdominal pain that is recurrent and atelectasis. At this time he is currently undergoing a computed tomography scan to further delineate his problem and his white count has progressively trended downwards however. I agree with admission of the patient and further evaluation depending on the CAT scan. I'll start him off prophylactically on antibiotics he'll possibly need a pulmonary consult further recommendation will be based upon the CAT scan results.
--- NOTE | 2016-07-21 22:57 | CT ---
EXAM: CT Chest With Intravenous Contrast. CLINICAL HISTORY: Reason: recent surgery hernia repair, appendectomy, mesh removed, pt today has SOB, nausea/vomiting and pain TECHNIQUE: Axial computed tomography images of the chest with intravenous contrast during the arterial phase of enhancement. CTDI is 133.8 mGy and DLP is 1899.10 mGy-cm This CT exam was performed using one or more of the following dose reduction techniques: automated exposure control, adjustment of the mA and/or kV according to patient size, and/or use of iterative reconstruction technique. COMPARISON: None FINDINGS: Lung parenchyma: Extensive patchy groundglass opacities and densities throughout the lungs bilaterally. Pleural space: Trace bilateral pleural effusions. Mediastinum/brigitte: Small nonspecific mediastinal and hilar lymph nodes which may be reactive. Heart: Coronary artery calcifications. No pericardial effusion. Borderline size of the heart. Vasculature: Normal. No pulmonary embolus. Aorta: Mild atherosclerotic calcifications. No aneurysm or dissection. Airways: Patent. Bones: Mild degenerative changes of the spine. No bony lesion or acute fracture. Muscles: No mass. Subcutaneous tissues: Normal. Upper abdomen: Please see accompanying CT abdomen report for further details. IMPRESSION: 1. Extensive patchy groundglass opacities and densities throughout the lungs bilaterally, most prominently in the upper lobes. Findings are concerning for an infectious/inflammatory process. Trace bilateral pleural effusions. 2. Small mediastinal and hilar lymph nodes may be reactive. 3. Please see accompanying CT abdomen/pelvis for further details.
[2016-07-21] MEDS ORDERED: LEVOFLOXACIN 500MG-D5W PMX 500 MG in DEXTROSE/WATER 1 100ML.BAG IVPB SCH (23:00)
--- NOTE | 2016-07-21 23:10 | CT ---
EXAM: CT Abdomen and Pelvis With Intravenous Contrast. CLINICAL HISTORY: Reason: recent surgery hernia repair, appendectectomy, mesh removed, pt today has SOB, nausea/vomiting and pain TECHNIQUE: Axial computed tomography images of the abdomen and pelvis with intravenous contrast. CTDI is 133.8 mGy and DLP is 1899.10 mGy-cm This CT exam was performed using one or more of the following dose reduction techniques: automated exposure control, adjustment of the mA and/or kV according to patient size, and/or use of iterative reconstruction technique. COMPARISON: None FINDINGS: Liver: Normal. No focal lesion. Spleen: Hypodense lesion in the anterior superior spleen measuring 4.5 x 3.2 cm which may represent a cyst. Small splenule. Gallbladder: Status post cholecystectomy. Pancreas: Normal. No mass. Adrenal glands: Normal. No mass. Kidneys: 3 punctate stones in the right kidney, measuring up to 3 mm. Single punctate stone in the inferior left kidney. No hydronephrosis in either kidney. Multiple hypodensities in bilateral kidneys, the largest in the upper pole of the left kidney measuring simple fluid attenuation, compatible with a simple cyst. The other smaller hypodensities are too small to definitively characterize but may also represent cysts. Bowel: Status post appendectomy. No bowel obstruction or inflammation. Urinary bladder: Normal. No wall thickening or mass. Reproductive organs: Normal. Muscles: No mass. Subcutaneous tissues: Postsurgical changes of the anterior abdominal wall with fat stranding and small gas foci as well as a subcutaneous drain in place. No evidence of recurrent hernia. No soft tissue abscess. Peritoneal space: Fat stranding, gas foci, and small amount of fluid measuring simple fluid attenuation in the anterior mesentery just deep to the anterior abdominal wall, most prominent in the anterior to the stomach antrum. Findings are likely related to recent surgery. No fluid collection. Peritoneal drain enters from the right lower anterior abdominal wall and courses in the lower abdomen. Lymph nodes: Normal. No lymphadenopathy. Vessels: Mild atherosclerotic changes. No aneurysm or dissection. Bones: Normal. No acute fracture or bony lesion. Lung bases: See accompanying CT chest for further details. IMPRESSION: 1. Postsurgical changes of the anterior abdominal wall with fat stranding and small gas foci and subcutaneous drain in place. No recurrent hernia. No soft tissue abscess. 2. Fat stranding, gas foci, and small amount of simple fluid in the anterior mesentery just deep to the anterior abdominal wall also likely represent recent postsurgical changes. No intra-abdominal fluid collection. 3. Punctate nonobstructing stones in right greater than left kidneys. Multiple probable bilateral renal cysts. 4. Probable 4.5 cm splenic cyst. 5. Status post cholecystectomy and appendectomy.
[2016-07-22] MEDS: KETOROLAC 30 MG/ML 1 ML VIAL IVP SCH ×5 (00:28→23:36)
[2016-07-22] MEDS: HYDROmorphone 1 MG/ML 1 ML SYRINGE IVP PRN ×3 (01:12→20:38)
[2016-07-22] MEDS: SYMBICORT 160-4.5 MCG INHALER INHALATION SCH ×2 (07:43→19:28)
[2016-07-22] MEDS: PIPERACILLIN-TAZOBACTAM 3.375 GM in DEXTROSE/WATER 1 50ML.BAG IVPB SCH ×3 (08:21→23:36)
[2016-07-22] MEDS: METOPROLOL SUCCINATE (ER) 50 MG TAB.ER.24H PO SCH (08:22)
[2016-07-22] MEDS: LEVOTHYROXINE 50 MCG TAB PO SCH (08:22)
[2016-07-22] MEDS: lamoTRIgine 100 MG TAB PO SCH ×2 (08:22→20:37)
[2016-07-22] MEDS: PANTOPRAZOLE 40 MG TABLET PO SCH (08:22)
[2016-07-22] MEDS: DESVENLAFAXINE SUCCINATE 50 MG TAB.ER.24H PO SCH (08:22)
[2016-07-22] MEDS: LISINOPRIL 20 MG TAB PO SCH (08:22)
[2016-07-22] MEDS: buPROPion XL 300 MG TAB.ER.24H PO SCH (08:22)
[2016-07-22] MEDS: clonazePAM 1 MG TAB PO SCH ×2 (08:28→20:37)
[2016-07-22] MEDS: METHYLPHENIDATE HCL 10 MG TAB PO SCH ×2 (08:29→20:37)
--- NOTE | 2016-07-22 09:37 | XR ---
EXAMINATION TYPE: XR chest 2V DATE OF EXAM: 07/22/2016 8:16 AM COMPARISON: Prior chest x-ray third of June 2013 HISTORY: Pneumonia TECHNIQUE: Frontal and lateral views of the chest are obtained. FINDINGS: Airspace disease present within the left lung, interstitium is increased. No pneumothorax or sizable effusion. Heart is enlarged. IMPRESSION: Findings could represent pneumonia, correlate for possible congestive heart failure, javed almeida follow-up is recommended.
[2016-07-22 10:45] LABS: Basophils % (A) 0 %; CH 31.3; CHCM 33.5; Eosinophils # (A) 0.1 k/uL (0-0.7); Eosinophils % (A) 2 %; HCT 34.7 % (39.0-53.0); HDW 2.74; HGB 11.6 gm/dL (13.0-17.5); Luc # (Auto) 0.16; Luc % (Auto) 2; Lymphocytes # (A) 0.9 k/uL (1.0-4.8); Lymphocytes % (A) 12 %; MCH 31.4 pg (25.0-35.0); MCHC 33.5 g/dL (31.0-37.0); MCV 93.7 fL (80.0-100.0); Monocytes # (A) 0.5 k/uL (0-1.0); Monocytes % (A) 7 %; Neutrophils # (A) 6.3 k/uL (1.3-7.7); Neutrophils % (A) 78 %; RBC 3.71 m/uL (4.30-5.90); RDW 13.6 % (11.5-15.5); WBC 8.1 k/uL (3.8-10.6); WBC (Perox) 8.91
[2016-07-22 10:51] LABS: ALT 34 U/L (21-72); AST 29 U/L (17-59); Alkaline Phosphatase 130 U/L (38-126); Anion Gap 9 mmol/L; Blood Urea Nitrogen 15 mg/dL (9-20); Calcium 7.9 mg/dL (8.4-10.2); Carbon Dioxide 25 mmol/L (22-30); Chloride 105 mmol/L (98-107); Glucose 94 mg/dL (74-99); Non-African American GFR(MDRD) >60 (>60 ml/min/1.73 sqM); Potassium 3.9 mmol/L (3.5-5.1); Sodium 139 mmol/L (137-145); Total Bilirubin 1.1 mg/dL (0.2-1.3); Total Protein 5.4 g/dL (6.3-8.2)
[2016-07-22] MEDS: ONDANSETRON 4 MG/2 ML VIAL IVP PRN ×2 (13:38→20:41)
--- NOTE | 2016-07-22 14:35 | P.PN ---
Subjective Principal diagnosis: Pneumonia with SIRS Patient is a 50-year-old male who presented with abdominal discomfort and constipation. He is passing gas at this time he is tolerating clear liquids at this time he is not having any nausea and vomiting. 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 At this time I will advance his diet and give him some stool softeners. His pain is chronic in nature and is difficult to manage. The patient reported that pulmonology wanted to do Bronchoscopy at some point. Objective - Vital Signs Vital signs: Vital Signs Temp 97.7 F 07/22/16 07:00 Pulse 80 07/22/16 08:00 Resp 20 07/22/16 08:00 BP 132/89 07/22/16 07:00 Pulse Ox 96 07/22/16 07:44 Intake & Output 07/21/16 07/22/16 07/22/16 18:59 06:59 18:59 Intake Total 200 Output Total 130 Balance 70 Intake: Oral 200 Output: Drainage 130 Left Abdomen 100 Right Abdomen 30 Stool 0 Other: Voiding Method Toilet Toilet Urinal Urinal # Voids 1 - Constitutional General appearance: Present: cooperative, mild distress - EENT Eyes: Present: PERRLA - Gastrointestinal Gastrointestinal Comment(s): Abdominal pain is moderate. There is serosanguineous discharge and the NINA was in place and is intact and dry - Labs CBC & Chem 7: 07/22/16 10:12 07/22/16 10:12 Labs: Abnormal Lab Results - Last 24 Hours (Table) 07/22/16 07/22/16 Range/Units 10:12 10:12 RBC 3.71 L (4.30-5.90) m/uL Hgb 11.6 L (13.0-17.5) gm/dL Hct 34.7 L (39.0-53.0) % Lymphocytes # 0.9 L (1.0-4.8) k/uL Calcium 7.9 L (8.4-10.2) mg/dL Alkaline Phosphatase 130 H (38-126) U/L Total Protein 5.4 L (6.3-8.2) g/dL Albumin 2.8 L (3.5-5.0) g/dL Assessment and Plan (1) Postoperative abdominal pain Status: Acute (2) MRSA (methicillin resistant Staphylococcus aureus) infection Status: Acute (3) Ventral hernia Status: Acute Plan: 1 febrile 2 leukocytosis 3 tachycardia next line 4 possible sirs 5 abdominal pain 6- Sleep apnea 7- MRSA infections 8- Hypertension At this point the patient is doing much better than yesterday his leukocytosis resolves oh perform the patient's report from neurology has seen him and he they 're planning to do bronchoscopy. We will continue the antibiotics both Levaquin and Zosyn. From surgical standpoint I believe there is no problems and its is appropriate in terms of his pain. I will however add laxative and stool softeners. His diet may be advanced. As stated this is more likely a pneumonia unrelated to the surgery.
[2016-07-22] MEDS: MAGNESIUM HYDROXIDE 2,400 MG/10 ML CUP PO PRN (16:30)
[2016-07-22] MEDS: LEVOFLOXACIN 500 MG TAB PO SCH (20:37)
[2016-07-22] MEDS: QUEtiapine 200 MG TAB PO SCH (20:37)
[2016-07-22] MEDS: ATORVASTATIN 20 MG TAB PO SCH (20:37)
[2016-07-23] MEDS: KETOROLAC 30 MG/ML 1 ML VIAL IVP SCH ×4 (06:19→23:21)
--- NOTE | 2016-07-23 07:43 | P.PN ---
Progress Note - Text See full dictated note. Pain of the abdominal incision improved. Pulmonary following for possible bronchoscopy.
[2016-07-23] MEDS: PIPERACILLIN-TAZOBACTAM 3.375 GM in DEXTROSE/WATER 1 50ML.BAG IVPB SCH (07:53)
[2016-07-23] MEDS: lamoTRIgine 100 MG TAB PO SCH ×2 (07:53→23:18)
[2016-07-23] MEDS: PANTOPRAZOLE 40 MG TABLET PO SCH (07:53)
[2016-07-23] MEDS: DESVENLAFAXINE SUCCINATE 50 MG TAB.ER.24H PO SCH (07:53)
[2016-07-23] MEDS: LEVOTHYROXINE 50 MCG TAB PO SCH (07:53)
[2016-07-23] MEDS: buPROPion XL 300 MG TAB.ER.24H PO SCH (07:53)
[2016-07-23] MEDS: METOPROLOL SUCCINATE (ER) 50 MG TAB.ER.24H PO SCH (07:54)
[2016-07-23] MEDS: LISINOPRIL 20 MG TAB PO SCH (07:54)
[2016-07-23] MEDS: METHYLPHENIDATE HCL 10 MG TAB PO SCH ×2 (07:57→23:19)
[2016-07-23] MEDS: clonazePAM 1 MG TAB PO SCH ×2 (07:57→23:18)
[2016-07-23] MEDS: HYDROmorphone 1 MG/ML 1 ML SYRINGE IVP PRN (07:57)
[2016-07-23] MEDS: SYMBICORT 160-4.5 MCG INHALER INHALATION SCH ×2 (08:21→20:04)
--- NOTE | 2016-07-23 09:48 | XR ---
EXAMINATION TYPE: XR chest 1V portable DATE OF EXAM: 07/23/2016 9:00 AM COMPARISON: Prior chest x-ray 2016 HISTORY: Pneumonia TECHNIQUE: Single frontal view of the chest is obtained. FINDINGS: There is some improvement in aeration as compared exam. Heart is enlarged. No pneumothorax or pleural effusion. IMPRESSION: Improved aeration. Cardiomegaly.
[2016-07-23] MEDS: MAGNESIUM HYDROXIDE 2,400 MG/10 ML CUP PO PRN (11:16)
--- NOTE | 2016-07-23 12:59 | P.CNPUL ---
History of Present Illness Consult date: 07/23/16 Reason for consult: other Chief complaint: Not feeling well, nausea and vomiting, weakness History of present illness: This is a 50-year-old male who was seen in the emergency room. He was admitted to the hospital on and discharged on Saturday of last week for hernia repair done by Dr. Crow. The patient apparently did well with discharged home. Subsequent to that, the patient came back into the hospital with complaints of vomiting. Nausea. He apparently had low-grade fever. He was unable to keep his medications down. His some tenderness in his belly. Also some mild shortness of breath. The patient denies any fever or chills. The patient was resting comfortably when when I went to go see him. He was getting nasal O2 but I asked the nurse to take it off to see high his saturations were without the oxygen. He denies a previous history of any pulmonary disease although apparently had some sort of postoperative mishap many years back after a tonsillectomy and adenoidectomy which required short-term mechanical ventilation. The patient has a history of marijuana use. He uses medical marijuana on a currently. Also had a previous history of cocaine use in the past. The patient denies any history of any chronic lung condition and does not use any oxygen at home. The patient really denies primary complaints at this time. I'm not exactly sure I was asked to see the patient currently seems relatively stable from the pulmonary standpoint this time. Review of Systems A 12 point review of system is positive for weakness nausea vomiting and abdominal pain. He denies any pulmonary complaints include shortness of breath chest tightness wheezing coughing or phlegm production. A chest x-ray showed bilateral infiltrates potentially consistent with CHF and a CAT scan showed some bilateral upper lobe infiltrates which may be consistent with either an inflammatory infectious process. He's behaving like neither. Past Medical History Past Medical History: GERD/Reflux, Hyperlipidemia, Hypertension, Musculoskeletal Disorder, Pneumonia, Respiratory Disorder, Seizure Disorder, Skin Disorder, Sleep Apnea/CPAP/BIPAP, Thyroid Disorder Additional Past Medical History / Comment(s): HX ABSCESSES LEGS, CELLULTIS. HX SEIZURE X2, 2011, BIT PART OF TONGUE OFF. NOT ABLE TO USE BIPAP. OLD FX BACK, 2002. HX MRSA Neck/Face/RT THIGH/LT CALF. ENLARGED HEART. CHRONIC BRONCHITIS. History of Any Multi-Drug Resistant Organisms: MRSA Date of last positivie culture/infection: 03/07/16 MDRO Source:: LEFT LEG Past Surgical History: Adenoidectomy, Cholecystectomy, Heart Catheterization, Hernia Repair, Tonsillectomy Additional Past Surgical History / Comment(s): ABD HERNIA SURG X3; LAP BAND 2010 EST. 06-15-14 LAP REMOVAL OF LAP BAND AND PORT. COLONOSCOPY, EGD. EXC Areas of MRSA on face, neck, LEGS 2016. Past Anesthesia/Blood Transfusion Reactions: Previous Problems w/ Anesthesia Additional Past Anesthesia/Blood Transfusion Reaction / Comment(s): 1985 DURING T&A SURG, DEVELOPED FLUID IN LUNGS, PUT ON VENT. Past Psychological History: ADD/ADHD, Anxiety, Bipolar, Depression, Panic Disorder Smoking Status: Current every day smoker Past Alcohol Use History: None Reported Additional Past Alcohol Use History / Comment(s): HX SMOKING OFF/ON SINCE AGE 12 , UP TO 1 PPD, QUIT 1 MONTH. Past Drug Use History: Cocaine, Marijuana Additional Drug Use History / Comment(s): USING MEDICAL MARIJUANA, DAILY. (PT STATED WENT TO REHAB IN 1998 D/T USE OF COCAINE/CRACK) - Past Family History Mother Family Medical History: No Reported History Additional Family Medical History / Comment(s): PT STATED MOM IS HEALTHY Father Family Medical History: Cancer Additional Family Medical History / Comment(s): LYMPHOMA Medications and Allergies Home Medications Medication Instructions Recorded Confirmed Type Omeprazole [PriLOSEC] 40 mg PO AC-BRKFST 03/03/14 07/21/16 History Simvastatin [Zocor] 40 mg PO HS 03/03/14 07/21/16 History Levothyroxine Sodium [Synthroid] 50 mcg PO QAM 04/21/15 07/21/16 History Metoprolol Succinate (ER) [Toprol 50 mg PO QAM 04/21/15 07/21/16 History XL] lamoTRIgine [LaMICtal] 200 mg PO BID 04/21/15 07/21/16 History Budesonide/Formoterol Fumarate 2 puff INHALATION RT-BID 03/06/16 07/21/16 History [Symbicort 160-4.5 Mcg Inhaler] Desvenlafaxine Succinate [Pristiq 50 mg PO DAILY 03/06/16 07/21/16 History ER] Lisinopril [Zestril] 20 mg PO DAILY 03/06/16 07/21/16 History Methylphenidate HCl [Ritalin] 20 mg PO BID 03/06/16 07/21/16 History QUEtiapine FUMARATE [SEROquel] 600 mg PO HS 03/06/16 07/21/16 History clonazePAM [KlonoPIN] 1 mg PO BID 03/06/16 07/21/16 History Hydrocodone/Acetaminophen 1 tab PO TID PRN 07/16/16 07/21/16 History [Hydrocodon-Acetaminophn 10-325] buPROPion HCL [Wellbutrin XL] 300 mg PO DAILY 07/16/16 07/21/16 History Allergies Allergy/AdvReac Type Severity Reaction Status Date / Time No Known Allergies Allergy Verified 07/21/16 18:44 Physical Exam Osteopathic Statement: *. No significant issues noted on an osteopathic structural exam other than those noted in the History and Physical/Consult. Vitals: Vital Signs Temp Pulse Resp BP Pulse Ox 07/23/16 11:29 94 L 07/23/16 07:00 97.3 F L 81 18 119/74 90 L 07/22/16 23:00 100.0 F H 87 18 137/82 98 07/22/16 16:00 84 20 07/22/16 15:00 99.4 F 84 20 135/77 92 L Intake and Output 07/22/16 07/23/16 07/23/16 22:59 06:59 14:59 Intake Total 800 520 Output Total 60 0 Balance 740 520 Intake: Oral 800 520 Output: Drainage 60 Left Abdomen 30 Right Abdomen 30 Stool 0 0 Other: Voiding Method Toilet Toilet Urinal Urinal # Voids 2 1 # Bowel Movements 0 Weight 95.254 kg No acute distress, oriented 3. Very comfortable appearing. HEENT examination is grossly unremarkable. Mucous membranes are moist. No oral lesions. Neck supple. Full range of motion no adenopathy or thyromegaly. Neck veins are flat. Cardiovascular examination reveals regular rhythm rate. S1-S2 normal. No S3- S4 or murmur. Lungs reveal few scattered rhonchi. No wheeze are clear. Abdomen soft. A bandage is noted. Semis are intact. His no cyanosis clubbing or edema. Skin is without rash. Neurologic examination is brief but nonfocal. Results - Laboratory Findings CBC and BMP: 07/22/16 10:12 07/22/16 10:12 PT/INR, D-dimer PT 12.2 sec (9.0-12.0) H 07/21/16 18:32 INR 1.2 (<1.1) 07/21/16 18:32 Abnormal lab findings: Abnormal Labs 07/22/16 07/22/16 10:12 10:12 RBC 3.71 L Hgb 11.6 L Hct 34.7 L Lymphocytes # 0.9 L Calcium 7.9 L Alkaline Phosphatase 130 H Total Protein 5.4 L Albumin 2.8 L - Diagnostic Findings Chest x-ray: image reviewed CT scan - chest: image reviewed (Labs x-rays and medications are all reviewed.) Assessment and Plan (1) Abnormal chest x-ray Status: Acute (2) Postoperative abdominal pain Status: Acute (3) Ventral hernia Status: Acute Plan: The patient's medications labs and x-rays are all reviewed. The patient looks very stable. I did ask the nurse to take off the oxygen therapy measure the patient's saturation. We will review the current medications. The patient may have had an aspiration event. Another possibility would be flash pulmonary edema. Anyway again the patient looks very stable now. Doesn't appear to need the oxygen. Clinically not short of breath. Not producing any phlegm. Not wheezing. Time with Patient: Greater than 30
[2016-07-23 13:06] VITALS: BMI 29.2
[2016-07-23] MEDS ORDERED: HYDROmorphone 1 MG/ML 1 ML SYRINGE IVP PRN (13:48)
[2016-07-23] MEDS ORDERED: HYDROcodone/APAP 10-325MG 1 EACH TAB PO PRN ×2 (13:48)
--- NOTE | 2016-07-23 13:48 | P.PN ---
Subjective 50-year-old male being seen this morning. Appears in no acute distress talkative. Patient's initial presentation to the emergency room with abdominal pain. With nausea vomiting with a low-grade temp not able to keep down his pain medication. Patient stated his abdomen felt tender in the center. Patient stated when he coughed it hurt his abdomen. Patient denied any hematuria or dysuria. In the emergency room the temp was 100.4 heart rate was in the 90s Pulmonary consultation recommendations reviewed noted and appreciated. Patient today is not experiencing any shortness of breath and is not coughing up any secretions there is no audible wheezing patient does not need oxygen currently on room air sats are 94% CAT scan done in the emergency room of the abdomen and pelvis showed status post cholecystectomy appendectomy recent postsurgical changes with no acute findings. Additionally the patient had a CAT scan of the chest with IV contrast done on the reviewing the report extensive patchy groundglass opacities noted throughout the lungs bilaterally no pulmonary emboli noted Patient was just discharged on July 20 at that hospitalization the patient was treated for a open removal of mesh on the open appendectomy and a takedown of the internal hernia. 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 Is on suppressive therapy with Bactrim. Additionally patient has a history of chronic nicotine dependency. That prior admission there were no new postop events and patient was felt to be stable. Objective - Vital Signs Vital signs: Vital Signs Temp 97.3 F L 07/23/16 07:00 Pulse 81 07/23/16 07:00 Resp 18 07/23/16 07:00 BP 119/74 07/23/16 07:00 Pulse Ox 94 L 07/23/16 11:29 Intake & Output 07/22/16 07/23/16 07/23/16 18:59 06:59 18:59 Intake Total 400 1120 Output Total 130 60 Balance 270 1060 Weight 95.254 kg 95.254 kg Intake: Oral 400 1120 Output: Drainage 130 60 Left Abdomen 100 30 Right Abdomen 30 30 Stool 0 0 Other: Voiding Method Toilet Toilet Urinal Urinal # Voids 2 1 # Bowel Movements 0 - Exam Physical exam 50-year-old male looking older than stated age sitting up in bed appears in no acute distress Lungs few scattered rhonchi no wheezing noted upper airways clear. No cough noted currently on room air no conversational dyspnea noted Heart S1-S2 audible and regular Abdomen soft dressing dry bowel tones present no reports of nausea vomiting no stooling Extremities no edema noted Skin no evidence of a rash - Labs CBC & Chem 7: 07/22/16 10:12 07/22/16 10:12 Assessment and Plan Plan: Impression Present on admission nausea vomiting abdominal pain inability keep pain medication down unclear etiology Computed tomography scan of the chest show no evidence of a pulmonary emboli Present on admission febrile CAT scan of the chest extensive patchy groundglass opacity densities without the lungs bilaterally more prominent in the upper lobes Current every day smoker A mood disorder bipolar Anxiety depressive disorder nonspecified Chronic bronchitis Status post July 19 open removal of mesh open appendectomy takedown of internal hernia lysis of adhesions with abdominal washout 2 L History of multiple recurrent ventral hernia repairs Chronic abdominal pain narcotic dependent Plan Continue recommendations by pulmonology service Home meds as appropriate DVT and GI prophylaxis Continue IV Levaquin and Zosyn as ordered Repeat labs in the morning Further recommendations pending will follow Titrate the O2 down keep sat greater than 90 Home O2 eval prior to discharge Continue current aerosol bronchodilators The above dictated assessment and findings were discussed with dr Juarez. Impression and the plan of care have been dictated as directed. Myrna Magallon nurse practitioner acting as a scribe for dr Juarez
[2016-07-23 18:40] LABS: Phosphorous 2.5 mg/dL (2.5-4.5)
[2016-07-23] MEDS: ATORVASTATIN 20 MG TAB PO SCH (23:18)
[2016-07-23] MEDS: LEVOFLOXACIN 500 MG TAB PO SCH (23:18)
[2016-07-23] MEDS: QUEtiapine 200 MG TAB PO SCH (23:19)
[2016-07-23 23:52] VITALS: RESP 18
[2016-07-24] MEDS: KETOROLAC 30 MG/ML 1 ML VIAL IVP SCH (05:58)
[2016-07-24 07:39] VITALS: BP 136/83; PULSE 76; TEMP 96.3
[2016-07-24] MEDS: DESVENLAFAXINE SUCCINATE 50 MG TAB.ER.24H PO SCH (07:43)
[2016-07-24] MEDS: PANTOPRAZOLE 40 MG TABLET PO SCH (07:44)
[2016-07-24] MEDS: LEVOTHYROXINE 50 MCG TAB PO SCH (07:44)
[2016-07-24] MEDS: METOPROLOL SUCCINATE (ER) 50 MG TAB.ER.24H PO SCH (07:44)
[2016-07-24] MEDS: METHYLPHENIDATE HCL 10 MG TAB PO SCH (07:44)
[2016-07-24] MEDS: lamoTRIgine 100 MG TAB PO SCH (07:44)
[2016-07-24] MEDS: buPROPion XL 300 MG TAB.ER.24H PO SCH (07:44)
[2016-07-24] MEDS: clonazePAM 1 MG TAB PO SCH (07:44)
[2016-07-24] MEDS: SYMBICORT 160-4.5 MCG INHALER INHALATION SCH (08:44)
[2016-07-24] MEDS ORDERED: LISINOPRIL 20 MG TAB PO SCH (09:00)
[2016-07-24 09:42] LABS: Basophils % (A) 0 %; CH 31.6; CHCM 33.9; Eosinophils # (A) 0.3 k/uL (0-0.7); Eosinophils % (A) 5 %; HDW 2.81; HGB 10.9 gm/dL (13.0-17.5); Luc # (Auto) 0.15; Luc % (Auto) 3; Lymphocytes # (A) 0.8 k/uL (1.0-4.8); Lymphocytes % (A) 16 %; MCHC 33.2 g/dL (31.0-37.0); MCV 93.6 fL (80.0-100.0); Mean Platelet Volume 7.5; Monocytes # (A) 0.5 k/uL (0-1.0); Monocytes % (A) 9 %; Neutrophils # (A) 3.6 k/uL (1.3-7.7); Neutrophils % (A) 67 %; RBC 3.53 m/uL (4.30-5.90); WBC 5.3 k/uL (3.8-10.6); WBC (Perox) 5.85
[2016-07-24 09:58] LABS: ALT 37 U/L (21-72); AST 27 U/L (17-59); Alkaline Phosphatase 208 U/L (38-126); Anion Gap 7 mmol/L; Blood Urea Nitrogen 20 mg/dL (9-20); Calcium 8.2 mg/dL (8.4-10.2); Carbon Dioxide 28 mmol/L (22-30); Chloride 106 mmol/L (98-107); Glucose 149 mg/dL (74-99); Magnesium 2.1 mg/dL (1.6-2.3); Non-African American GFR(MDRD) >60 (>60 ml/min/1.73 sqM); Phosphorous 2.8 mg/dL (2.5-4.5); Sodium 141 mmol/L (137-145); Total Bilirubin 0.5 mg/dL (0.2-1.3); Total Protein 5.2 g/dL (6.3-8.2)
[2016-07-24] MEDS ORDERED: IBUPROFEN 600 MG TAB PO SCH (10:00)
--- NOTE | 2016-07-24 13:11 | P.PN ---
Subjective Progress note dated 07/24/2016 50-year-old male who I saw yesterday in consultation. He was initially admitted for not feeling well nausea vomiting and weakness. He was admitted last week without hernia repaired. It was done on and he was discharged Saturday of last week. Done by Dr. Elvia Crow. After he got home , he started having complaints of nausea and vomiting. He wasn't feeling well. Feeling weak. He has some abdominal pain and some low-grade fever. For that reason he was readmitted to the hospital. I was asked to see him because apparently his saturations had dropped. I did ask the nurse yesterday to take him off oxygen. Off of O2, saturation or more than adequate and they remain more than adequate. We went into the room today, he was sitting up in bed. Feeling well. He apparently is going to be discharged home today. Denies any fever chills cough phlegm production or other pulmonary complaints for that matter. Objective - Vital Signs Vital signs: Vital Signs Temp 96.3 F L 07/24/16 07:00 Pulse 76 07/24/16 07:00 Resp 18 07/24/16 07:00 BP 136/83 07/24/16 07:00 Pulse Ox 95 07/24/16 07:00 Intake & Output 07/23/16 07/24/16 07/24/16 18:59 06:59 18:59 Intake Total 775 Output Total 60 Balance -60 775 Weight 95.254 kg Intake: Oral 775 Output: Drainage 60 Left Abdomen 30 Right Abdomen 30 Other: Voiding Method Toilet Urinal # Voids 4 1 # Bowel Movements 1 - Exam No acute distress, oriented 3. Sitting up in bed. No respiratory distress. HEENT examination is grossly unremarkable. Mucous membranes are moist. No oral lesions. Neck supple. Full range of motion. No adenopathy or thyromegaly. Cardiovascular examination reveals regular rhythm rate. S1-S2 normal. No S3- S4 or murmur. Lungs reveal a few scattered rhonchi. No wheezes or crackles. Breath sounds are diminished. Abdomen soft bowel sounds are heard. His get a binder around his abdomen from his recent hernia repair Extremities are intact. No cyanosis clubbing or edema. Skin is intact. No masses or lesions. Brief neurologic examination is unremarkable. - Labs CBC & Chem 7: 07/24/16 09:18 07/24/16 09:18 Labs: Abnormal Lab Results - Last 24 Hours (Table) 07/24/16 07/24/16 Range/Units 09:18 09:18 RBC 3.53 L (4.30-5.90) m/uL Hgb 10.9 L (13.0-17.5) gm/dL Hct 33.0 L (39.0-53.0) % Lymphocytes # 0.8 L (1.0-4.8) k/uL Glucose 149 H (74-99) mg/dL Calcium 8.2 L (8.4-10.2) mg/dL Alkaline Phosphatase 208 H (38-126) U/L Total Protein 5.2 L (6.3-8.2) g/dL Albumin 2.6 L (3.5-5.0) g/dL Assessment and Plan (1) Abnormal chest x-ray Status: Acute (2) Postoperative abdominal pain Status: Acute (3) Ventral hernia Status: Acute Plan: The patient's medications labs and x-rays are all reviewed. The patient looks very stable. I did ask the nurse to take off the oxygen therapy measure the patient's saturation. We will review the current medications. The patient may have had an aspiration event. Another possibility would be flash pulmonary edema. Anyway again the patient looks very stable now. Doesn't appear to need the oxygen. Clinically not short of breath. Not producing any phlegm. Not wheezing. Plan dated 07/24/2016 The patient is doing well. He states he may be going home today. He is not sure. The patient denies any respiratory issues at this time. Is not short of breath. Is not coughing. Not producing any phlegm. No fever no chills. His belly is a little sore from his recent surgery. No further nausea or vomiting. Time with Patient: Less than 30
--- NOTE | 2016-07-24 13:40 | P.DS ---
Providers Date of admission: 07/21/16 22:15 Expected date of discharge: 07/24/16 Attending physician: Rashard Carbajal Consults: 07/21/16 22:36 Consult Physician Routine Consulting Provider: Angy Adler Consult Reason/Comments: pneumonia Do you want consulting provider notified?: Yes, Notify in am Primary care physician: Alaina Wynne [facility] Course: 50-year-old male being seen this morning. Appears in no acute distress talkative. Patient's initial presentation to the emergency room with abdominal pain. With nausea vomiting with a low-grade temp not able to keep down his pain medication. Patient stated his abdomen felt tender in the center. Patient stated when he coughed it hurt his abdomen. Patient denied any hematuria or dysuria. In the emergency room the temp was 100.4 heart rate was in the 90s Pulmonary consultation recommendations reviewed noted and appreciated. Patient today is not experiencing any shortness of breath and is not coughing up any secretions there is no audible wheezing patient does not need oxygen currently on room air sats are 94% Patient is postop July 19 open removal of mesh open appendectomy takedown of an internal hernia with Reza-Garcia drains placed. There were no postop events patient was able to be discharged in a timely manner. CAT scan done in the emergency room of the abdomen and pelvis showed status post cholecystectomy appendectomy recent postsurgical changes with no acute findings. Additionally the patient had a CAT scan of the chest with IV contrast done on the reviewing the report extensive patchy groundglass opacities noted throughout the lungs bilaterally no pulmonary emboli noted Patient was just discharged on July 20 at that hospitalization the patient was treated for a open removal of mesh on the open appendectomy and a takedown of the internal hernia. 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 Is on suppressive therapy with Bactrim. Additionally patient has a history of chronic nicotine dependency. That prior admission there were no new postop events and patient was felt to be stable. Impression Present on admission nausea vomiting abdominal pain inability keep pain medication down unclear etiology Computed tomography scan of the chest show no evidence of a pulmonary emboli Present on admission febrile CAT scan of the chest extensive patchy groundglass opacity densities without the lungs bilaterally more prominent in the upper lobes Current every day smoker A mood disorder bipolar Anxiety depressive disorder nonspecified Chronic bronchitis Status post July 19 open removal of mesh open appendectomy takedown of internal hernia lysis of adhesions with abdominal washout 2 L History of multiple recurrent ventral hernia repairs Chronic abdominal pain narcotic dependent The above dictated assessment and findings were discussed with dr Juarez. Impression and the plan of care have been dictated as directed. Myrna Magallon nurse practitioner acting as a scribe for dr Juraez Plan - Discharge Summary New Discharge Prescriptions: Ibuprofen [Motrin] 600 mg PO Q8HR PRN #30 tab PRN Reason: Pain Discharge Medication List Omeprazole [PriLOSEC] 40 mg PO AC-BRKFST 03/03/14 [History] Simvastatin [Zocor] 40 mg PO HS 03/03/14 [History] Levothyroxine Sodium [Synthroid] 50 mcg PO QAM 04/21/15 [History] Metoprolol Succinate (ER) [Toprol XL] 50 mg PO QAM 04/21/15 [History] lamoTRIgine [LaMICtal] 200 mg PO BID 04/21/15 [History] Budesonide/Formoterol Fumarate [Symbicort 160-4.5 Mcg Inhaler] 2 puff INHALATION RT-BID 03/06/16 [History] Desvenlafaxine Succinate [Pristiq ER] 50 mg PO DAILY 03/06/16 [History] Lisinopril [Zestril] 20 mg PO DAILY 03/06/16 [History] Methylphenidate HCl [Ritalin] 20 mg PO BID 03/06/16 [History] QUEtiapine FUMARATE [SEROquel] 600 mg PO HS 03/06/16 [History] clonazePAM [KlonoPIN] 1 mg PO BID 03/06/16 [History] Hydrocodone/Acetaminophen [Hydrocodon-Acetaminophn 10-325] 1 tab PO TID PRN 01/22 [History] buPROPion HCL [Wellbutrin XL] 300 mg PO DAILY 07/16/16 [History] HYDROcodone/APAP 10-325MG [[place] 10-325] 1 tab PO Q6H PRN #30 tab 07/20/16 [Rx] Ibuprofen [Motrin] 600 mg PO Q8HR PRN #30 tab 07/24/16 [Rx] Follow up Appointment(s)/Referral(s): Elvia Juarez MD [STAFF PHYSICIAN] - 07/31/16 (Call for appt time at [facility]) Alaina Wynne MD [Primary Care Provider] - 1-2 days Patient Instructions/Handouts: Reza-Garcia Drain Care (DC), Abdominal Binder (GEN) Activity/Diet/Wound Care/Special Instructions: No lifting over 4 pounds in 4 weeks. Keep NINA outputs. No showering. Discharge Disposition: HOME SELF-CARE
== END 2016-07-24 14:05 | disposition home or self-care (01) | DRG 948 ==
LOC: EC 17:56 → 4MS4W 22:15
PROVIDERS: ADMIT Surgery; ATTEND Surgery
DX: G89.18 Other acute postprocedural pain (principal); I11.9 Hypertensive heart disease without heart failure; F11.20 Opioid dependence, uncomplicated; J98.11 Atelectasis; R10.9 Unspecified abdominal pain; R11.2 Nausea with vomiting, unspecified; F32.9 Major depressive disorder, single episode, unspecified; E78.5 Hyperlipidemia, unspecified; F17.200 Nicotine dependence, unspecified, uncomplicated; F41.0 Panic disorder [episodic paroxysmal anxiety]; F90.9 Attention-deficit hyperactivity disorder, unspecified type; G40.909 Epilepsy, unspecified, not intractable, without status epilepticus; G47.30 Sleep apnea, unspecified; I51.7 Cardiomegaly; J42 Unspecified chronic bronchitis; K21.9 Gastro-esophageal reflux disease without esophagitis; K59.00 Constipation, unspecified; Z79.899 Other long term (current) drug therapy; Z80.7 Family history of other malignant neoplasms of lymphoid, hematopoietic and related tissues; Z86.14 Personal history of Methicillin resistant Staphylococcus aureus infection; Z98.84 Bariatric surgery status
CPT/HCPCS: 36415; 71010; 71020; 71275; 74177; 80053; 81001; 83605; 83735; 84100; 85025; 85610; 85730; 87040; 87086; 93005; 94640; 94760; 96361; 96365; 96366; 96368; 96375; 96376; 99285

== ENCOUNTER 2016-09-05 10:37 | Day surgery (SDC) | payer MEDICARE ==
[2016-09-04 08:16] VITALS: BMI 28.5
[~2016-09-05 10:37] MED LIST changes: -ACETAMINOPHEN IV (For NPO) 1,000 MG in EMPTY BAG 1 BAG IVPB ONE; -DEXAMETHASONE SOD PHOSPHATE 10 MG/ML 1 ML VIAL IV ONE; -HEPARIN SODIUM,PORCINE 5,000 UNIT/ML 1 ML VIAL SQ ONE; +LIDOCAINE 1% 20 ML VIAL (10MG/ML) FOR IV START INTRADERMA PRN; -ONDANSETRON 4 MG/2 ML VIAL IVP ONE; -ceFAZolin 2 GM in SODIUM CHLORIDE 0.9% 100 ML IVPB ONE
--- NOTE | 2016-09-05 11:02 | P.GSHP ---
History of Present Illness H&P Date: 09/05/16 CHIEF COMPLAINT: GERD HISTORY OF PRESENT ILLNESS: The patient is a 51-year-old male who presents reports gastroesophageal reflux disease. Upper endoscopy was offered for further evaluation and management. PAST MEDICAL HISTORY: Please see list. PAST SURGICAL HISTORY: Please see list. MEDICATIONS: Please see list. ALLERGIES: Please see list. SOCIAL HISTORY: No illicit drug use FAMILY HISTORY: No reports of Crohn disease or ulcerative colitis. REVIEW OF ORGAN SYSTEMS: CONSTITUTIONAL: No reports of fevers or chills. GI: Denies any blood in stools or constipation. PHYSICAL EXAM: VITAL SIGNS: Stable GENERAL: Well-developed and pleasant in no acute distress. HEENT: No scleral icterus. Extraocular movements grossly intact. Moist buccal mucosa. NECK: Supple without lymphadenopathy. CHEST: Unlabored respirations. Equal bilateral excursions. CARDIOVASCULAR: Regular rate and rhythm. Distal 2+ pulses. ABDOMEN: Soft, nondistended. MUSCULOSKELETAL: No clubbing, cyanosis, or edema. ASSESSMENT: 1. Gastroesophageal reflux disease PLAN: 1. Recommend proceeding with an upper endoscopy Past Medical History Past Medical History: GERD/Reflux, Hyperlipidemia, Hypertension, Musculoskeletal Disorder, Pneumonia, Respiratory Disorder, Seizure Disorder, Skin Disorder, Sleep Apnea/CPAP/BIPAP, Thyroid Disorder Additional Past Medical History / Comment(s): HX ABSCESSES LEGS, CELLULTIS. HX SEIZURE X2, 2011, BIT PART OF TONGUE OFF. NOT ABLE TO USE BIPAP. OLD FX BACK, 2002. HX MRSA Neck/Face/RT THIGH/LT CALF. ENLARGED HEART. CHRONIC BRONCHITIS. History of Any Multi-Drug Resistant Organisms: MRSA Date of last positivie culture/infection: 03/07/16 MDRO Source:: LEFT LEG Past Surgical History: Adenoidectomy, Cholecystectomy, Heart Catheterization, Hernia Repair, Tonsillectomy Additional Past Surgical History / Comment(s): ABD HERNIA SURG X3; LAP BAND 2010 EST. 06-15-14 LAP REMOVAL OF LAP BAND AND PORT. COLONOSCOPY, EGD. EXC Areas of MRSA on face, neck, LEGS 2016. VENTRAL HERNIA REPAIR 07/2016 Past Anesthesia/Blood Transfusion Reactions: Previous Problems w/ Anesthesia Additional Past Anesthesia/Blood Transfusion Reaction / Comment(s): 1985 DURING T&A SURG, DEVELOPED FLUID IN LUNGS, PUT ON VENT. Past Psychological History: ADD/ADHD, Anxiety, Bipolar, Depression, Panic Disorder Smoking Status: Former smoker Past Alcohol Use History: None Reported Additional Past Alcohol Use History / Comment(s): HX SMOKING OFF/ON SINCE AGE 12 , UP TO 1 PPD, QUIT JUNE 2016 Past Drug Use History: Cocaine, Marijuana Additional Drug Use History / Comment(s): USING MEDICAL MARIJUANA, DAILY. (PT STATED WENT TO REHAB IN 1998 D/T USE OF COCAINE/CRACK). INSTRUCTED NO MARIJUANA USE TODAY - Past Family History Mother Family Medical History: No Reported History Additional Family Medical History / Comment(s): PT STATED MOM IS HEALTHY Father Family Medical History: Cancer Additional Family Medical History / Comment(s): LYMPHOMA Medications and Allergies Home Medications Medication Instructions Recorded Confirmed Type Omeprazole [PriLOSEC] 40 mg PO AC-BRKFST 03/03/14 09/04/16 History Simvastatin [Zocor] 40 mg PO HS 03/03/14 09/04/16 History Levothyroxine Sodium [Synthroid] 50 mcg PO QAM 04/21/15 09/04/16 History Metoprolol Succinate (ER) [Toprol 50 mg PO QAM 04/21/15 09/04/16 History XL] lamoTRIgine [LaMICtal] 200 mg PO BID 04/21/15 09/04/16 History Budesonide/Formoterol Fumarate 2 puff INHALATION RT-BID 03/06/16 09/04/16 History [Symbicort 160-4.5 Mcg Inhaler] Desvenlafaxine Succinate [Pristiq 50 mg PO DAILY 03/06/16 09/04/16 History ER] Lisinopril [Zestril] 20 mg PO DAILY 03/06/16 09/04/16 History Methylphenidate HCl [Ritalin] 20 mg PO BID 03/06/16 09/04/16 History QUEtiapine FUMARATE [SEROquel] 600 mg PO HS 03/06/16 09/04/16 History clonazePAM [KlonoPIN] 1 mg PO BID 03/06/16 09/04/16 History Hydrocodone/Acetaminophen 1 tab PO TID PRN 07/16/16 09/04/16 History [Hydrocodon-Acetaminophn 10-325] buPROPion HCL [Wellbutrin XL] 300 mg PO DAILY 07/16/16 09/04/16 History Allergies Allergy/AdvReac Type Severity Reaction Status Date / Time No Known Allergies Allergy Verified 09/04/16 08:13
[2016-09-05 11:36] VITALS: RESP 16; TEMP 98.3
[2016-09-05 11:43] LABS: Glucose,Whole Blood 101 mg/dL (75-99)
[2016-09-05] MEDS ORDERED: PROPOFOL 10 MG/ML 20 ML VIAL IV ONE (11:47)
--- NOTE | 2016-09-05 12:04 | P.PCN ---
Date of Procedure: 09/05/16 Preoperative Diagnosis: Postoperative Diagnosis: Procedure(s) Performed: Implants: Indications for Procedure: Operative Findings: Description of Procedure: PREOPERATIVE DIAGNOSIS: Gastroesophageal reflux disease. Dysphagia. Previous history of yeast esophagitis. POSTOPERATIVE DIAGNOSIS: Gastroesophageal reflux disease. Dysphagia. Previous history of yeast esophagitis. Gastritis. OPERATION: Esophagogastroduodenoscopy with biopsies along antrum. SURGEON: Elvia Juarez MD ANESTHESIA: MAC. INDICATIONS: The patient is a 51-year-old female who presents with a history of reflux disease. Benefits and risks of the procedure were described. Informed consent was obtained. DESCRIPTION: The patient was brought into the endoscopy suite and laid in the left lateral decubitus position. An Olympus gastroscope was passed along the posterior oropharynx down to the distal esophagus where the squamocolumnar junction was encountered at 40 cm from the incisors. The stomach was entered and minimal bile reflux was found. Additional findings are listed below. Biopsies with cold forceps were obtained of the antrum. The first through third portion of the duodenum was examined and unremarkable. Retroflexion of the scope confirmed Hill grade II lower esophageal valve. The squamocolumnar junction demostrated no acute erosive esophagitis. The stomach was desufflated. The patient tolerated the procedure well. FINDINGS: Squamocolumnar junction 40 cm from the incisors. Hill grade II lower esophageal valve. No acute erosive esophagitis. No active duodenitis. No yeast esophagitis. Chronic gastritis. RECOMMENDATIONS: Upper endoscopy as needed. Plan - Discharge Summary New Discharge Prescriptions: No Action Simvastatin [Zocor] 40 mg PO HS Omeprazole [PriLOSEC] 40 mg PO AC-BRKFST lamoTRIgine [LaMICtal] 200 mg PO BID Levothyroxine Sodium [Synthroid] 50 mcg PO QAM Metoprolol Succinate (ER) [Toprol XL] 50 mg PO QAM Lisinopril [Zestril] 20 mg PO DAILY clonazePAM [KlonoPIN] 1 mg PO BID QUEtiapine FUMARATE [SEROquel] 600 mg PO HS Methylphenidate HCl [Ritalin] 20 mg PO BID Desvenlafaxine Succinate [Pristiq ER] 50 mg PO DAILY Budesonide/Formoterol Fumarate [Symbicort 160-4.5 Mcg Inhaler] 2 puff INHALATION RT-BID buPROPion HCL [Wellbutrin XL] 300 mg PO DAILY Hydrocodone/Acetaminophen [Hydrocodon-Acetaminophn 10-325] 1 tab PO TID PRN PRN Reason: Pain HYDROcodone/APAP 10-325MG [[place] 10-325] 1 tab PO Q6H PRN #30 tab PRN Reason: Mild To Moderate Pain Ibuprofen [Motrin] 600 mg PO Q8HR PRN #30 tab PRN Reason: Pain Discharge Medication List Omeprazole [PriLOSEC] 40 mg PO AC-BRKFST 03/03/14 [History] Simvastatin [Zocor] 40 mg PO HS 03/03/14 [History] Levothyroxine Sodium [Synthroid] 50 mcg PO QAM 04/21/15 [History] Metoprolol Succinate (ER) [Toprol XL] 50 mg PO QAM 04/21/15 [History] lamoTRIgine [LaMICtal] 200 mg PO BID 04/21/15 [History] Budesonide/Formoterol Fumarate [Symbicort 160-4.5 Mcg Inhaler] 2 puff INHALATION RT-BID 03/06/16 [History] Desvenlafaxine Succinate [Pristiq ER] 50 mg PO DAILY 03/06/16 [History] Lisinopril [Zestril] 20 mg PO DAILY 03/06/16 [History] Methylphenidate HCl [Ritalin] 20 mg PO BID 03/06/16 [History] QUEtiapine FUMARATE [SEROquel] 600 mg PO HS 03/06/16 [History] clonazePAM [KlonoPIN] 1 mg PO BID 03/06/16 [History] Hydrocodone/Acetaminophen [Hydrocodon-Acetaminophn 10-325] 1 tab PO TID PRN 01/22 [History] buPROPion HCL [Wellbutrin XL] 300 mg PO DAILY 07/16/16 [History] HYDROcodone/APAP 10-325MG [[place] 10-325] 1 tab PO Q6H PRN #30 tab 07/20/16 [Rx] Ibuprofen [Motrin] 600 mg PO Q8HR PRN #30 tab 07/24/16 [Rx]
[2016-09-05 12:36] VITALS: BP 140/96; PULSE 65
== END 2016-09-05 12:41 | disposition home or self-care (01) ==
LOC: ORWHC2ENDO 10:37
PROVIDERS: ATTEND Surgery Plastic and Reconstructive Surgery
DX: K21.9 Gastro-esophageal reflux disease without esophagitis (principal); K29.50 Unspecified chronic gastritis without bleeding; R13.10 Dysphagia, unspecified; Z87.19 Personal history of other diseases of the digestive system; E78.5 Hyperlipidemia, unspecified; I10 Essential (primary) hypertension; G40.909 Epilepsy, unspecified, not intractable, without status epilepticus; G47.30 Sleep apnea, unspecified; E07.9 Disorder of thyroid, unspecified; F90.9 Attention-deficit hyperactivity disorder, unspecified type; F41.9 Anxiety disorder, unspecified; F31.9 Bipolar disorder, unspecified; F41.0 Panic disorder [episodic paroxysmal anxiety]; Z87.891 Personal history of nicotine dependence; Z79.51 Long term (current) use of inhaled steroids; Z79.899 Other long term (current) drug therapy
CPT/HCPCS: 88305; 88342; 43239; J2704

== ENCOUNTER 2016-09-19 11:44 | Inpatient (IN) | payer MEDICARE ==
[2016-09-19] MEDS ORDERED: MECLIZINE 25 MG TAB PO STA (12:28)
[2016-09-19] MEDS ORDERED: DIAZEPAM 5 MG/ML 2 ML SYRINGE IVP STA (12:28)
--- NOTE | 2016-09-19 12:35 | ED ---
General Adult HPI - General Chief complaint: Fall Stated complaint: FALL, POST OP Time Seen by Provider: 09/19/16 11:50 Source: patient, family, RN notes reviewed Mode of arrival: wheelchair Limitations: no limitations - History of Present Illness Initial comments: This is a 51-year-old male who about 5 weeks ago had a ventral hernia repair. Patient states over the last 3 days been extremely off balance and has fallen a couple of times. Patient states he went to [facility] yesterday and they did a CAT scan had blood work and chest x-ray and they told him that he was dehydrated and sent him home. Patient states he still very off balance and every time he looks at something it seems to be moving. Patient states had double vision at times as well. Patient denies headache patient denies any focal numbness or weakness. Patient denies any palpitations patient denies chest pain or difficulty breathing. Patient states after he fell yesterday his ventral hernia appears to have returned. There is a bulge in the center of his abdomen that is now there and it is new since his surgery. Patient has had very slow speech according to his but not slurred speech. Patient's movements are also very slow. - Related Data Home Medications Medication Instructions Recorded Confirmed Omeprazole [PriLOSEC] 40 mg PO AC-BRKFST 03/03/14 09/19/16 Metoprolol Succinate (ER) [Toprol 50 mg PO QAM 04/21/15 09/19/16 XL] lamoTRIgine [LaMICtal] 200 mg PO BID 04/21/15 09/19/16 Desvenlafaxine Succinate [Pristiq 50 mg PO DAILY 03/06/16 09/19/16 ER] Lisinopril [Zestril] 20 mg PO DAILY 03/06/16 09/19/16 Methylphenidate HCl [Ritalin] 20 mg PO BID 03/06/16 09/19/16 QUEtiapine FUMARATE [SEROquel] 600 mg PO HS 03/06/16 09/19/16 clonazePAM [KlonoPIN] 1 mg PO BID 03/06/16 09/19/16 buPROPion HCL [Wellbutrin XL] 300 mg PO HS 07/16/16 09/19/16 Atorvastatin Calcium [Lipitor] 20 mg PO DAILY 09/19/16 09/19/16 traMADol HCL [Ultram] 100 mg PO Q6HR PRN 09/19/16 09/19/16 Previous Rx's Medication Instructions Recorded Metoclopramide [Reglan] 10 mg PO ACHS #30 tab 09/05/16 Allergies Allergy/AdvReac Type Severity Reaction Status Date / Time No Known Allergies Allergy Verified 09/19/16 13:22 Review of Systems ROS Statement: Those systems with pertinent positive or pertinent negative responses have been documented in the HPI. ROS Other: All systems not noted in ROS Statement are negative. Past Medical History Past Medical History: GERD/Reflux, Hyperlipidemia, Hypertension, Musculoskeletal Disorder, Pneumonia, Respiratory Disorder, Seizure Disorder, Skin Disorder, Sleep Apnea/CPAP/BIPAP, Thyroid Disorder Additional Past Medical History / Comment(s): HX ABSCESSES LEGS, CELLULTIS. HX SEIZURE X2, 2011, BIT PART OF TONGUE OFF. NOT ABLE TO USE BIPAP. OLD FX BACK, 2002. HX MRSA Neck/Face/RT THIGH/LT CALF. ENLARGED HEART. CHRONIC BRONCHITIS. History of Any Multi-Drug Resistant Organisms: MRSA Date of last positivie culture/infection: 03/07/16 MDRO Source:: LEFT LEG Past Surgical History: Adenoidectomy, Appendectomy, Cholecystectomy, Heart Catheterization, Hernia Repair, Tonsillectomy Additional Past Surgical History / Comment(s): ABD HERNIA SURG X3; LAP BAND 2010 EST. 06-15-14 LAP REMOVAL OF LAP BAND AND PORT. COLONOSCOPY, EGD. EXC Areas of MRSA on face, neck, LEGS 2016. VENTRAL HERNIA REPAIR 07/2016 Past Anesthesia/Blood Transfusion Reactions: Previous Problems w/ Anesthesia Additional Past Anesthesia/Blood Transfusion Reaction / Comment(s): 1985 DURING T&A SURG, DEVELOPED FLUID IN LUNGS, PUT ON VENT. Past Psychological History: ADD/ADHD, Anxiety, Bipolar, Depression, Panic Disorder Smoking Status: Former smoker Past Alcohol Use History: None Reported Additional Past Alcohol Use History / Comment(s): HX SMOKING OFF/ON SINCE AGE 12 , UP TO 1 PPD, QUIT JUNE 2016 Past Drug Use History: Cocaine, Marijuana Additional Drug Use History / Comment(s): USING MEDICAL MARIJUANA, DAILY. (PT STATED WENT TO REHAB IN 1998 D/T USE OF COCAINE/CRACK). INSTRUCTED NO MARIJUANA USE TODAY - Past Family History Mother Family Medical History: No Reported History Additional Family Medical History / Comment(s): PT STATED MOM IS HEALTHY Father Family Medical History: Cancer Additional Family Medical History / Comment(s): LYMPHOMA General Exam - General Exam Comments Initial Comments: GENERAL: Patient is well-developed and well-nourished. Patient is nontoxic and well- hydrated and is in no acute distress. ENT: Neck is soft and supple. No significant lymphadenopathy is noted. Oropharynx is clear. Moist mucous membranes. Neck has full range of motion without eliciting any pain. EYES: The sclera were anicteric and conjunctiva were pink and moist. Extraocular movements were intact and pupils were equal round and reactive to light. Patient has nystagmus in the right eye when looking to the right.. PULMONARY: Unlabored respirations. Good breath sounds bilaterally. No audible rales rhonchi or wheezing was noted. CARDIOVASCULAR: There is a regular rate and rhythm without any murmurs gallops or rubs. ABDOMEN: Patient's ventral hernia appears to return it is tender to palpation.. No palpable organomegaly was noted. There is no palpable pulsatile mass. SKIN: Skin is clear with no lesions or rashes and otherwise unremarkable. NEUROLOGIC: Patient is alert and oriented x3. Cranial nerves II through XII are grossly intact. Motor and sensory are also intact. Patient's speech is very slow but he is able to answer all of his words and is able to express his thoughts.. Symmetrical smile. Patient's finger to nose is accurate but extremely slow bilaterally. MUSCULOSKELETAL: Normal extremities with adequate strength and full range of motion. No lower extremity swelling or edema. No calf tenderness. LYMPHATICS: No significant lymphadenopathy is noted PSYCHIATRIC: Normal psychiatric evaluation. Normal interpersonal interactions appears functionally intact in deals appropriately with others. No signs of depression. No signs of anxiety. No delusions. No hallucinations. Limitations: no limitations Course Vital Signs 09/19/16 09/19/16 09/19/16 11:47 12:56 14:31 Temperature 98.7 F Pulse Rate 89 76 71 Respiratory 18 16 17 Rate Blood Pressure 118/77 120/75 129/76 O2 Sat by Pulse 100 97 100 Oximetry Medical Decision Making - Medical Decision Making EKG shows normal sinus rhythm at 79 bpm MA interval is 182 QRS is 106 QT interval is 426 QTC is 488. EKG shows no ST segment elevation or depression or T-wave abdomen is noted. I reviewed the patient's medical records from [facility]. Patient had CAT scan yesterday and it was normal. Patient continued to be off balance without them up at the bedside. I spoke with Dr. Galan agreed to admit the patient will be consulting neurology as well as Dr. Crow - Lab Data Result diagrams: 09/19/16 12:15 09/19/16 12:15 Lab Results 09/19/16 09/19/16 09/19/16 Range/Units 12:15 12:15 12:15 WBC 7.4 (3.8-10.6) k/uL RBC 4.18 L (4.30-5.90) m/uL Hgb 13.0 (13.0-17.5) gm/dL Hct 38.2 L (39.0-53.0) % MCV 91.3 (80.0-100.0) fL MCH 31.0 (25.0-35.0) pg MCHC 34.0 (31.0-37.0) g/dL RDW 14.5 (11.5-15.5) % Plt Count 158 (150-450) k/uL Neutrophils % 73 % Lymphocytes % 17 % Monocytes % 6 % Eosinophils % 2 % Basophils % 0 % Neutrophils # 5.4 (1.3-7.7) k/uL Lymphocytes # 1.2 (1.0-4.8) k/uL Monocytes # 0.4 (0-1.0) k/uL Eosinophils # 0.2 (0-0.7) k/uL Basophils # 0.0 (0-0.2) k/uL PT (9.0-12.0) sec INR (<1.1) APTT (22.0-30.0) sec Sodium 143 (137-145) mmol/L Potassium 4.5 (3.5-5.1) mmol/L Chloride 108 H (98-107) mmol/L Carbon Dioxide 24 (22-30) mmol/L Anion Gap 11 mmol/L BUN 11 (9-20) mg/dL Creatinine 1.07 (0.66-1.25) mg/dL Est GFR (MDRD) Af Amer >60 (>60 ml/min/1.73 sqM) Est GFR (MDRD) Non-Af >60 (>60 ml/min/1.73 sqM) Glucose 99 (74-99) mg/dL Calcium 8.9 (8.4-10.2) mg/dL Total Bilirubin 0.5 (0.2-1.3) mg/dL AST 18 (17-59) U/L ALT 30 (21-72) U/L Alkaline Phosphatase 118 (38-126) U/L Total Creatine Kinase 68 (55-170) U/L CK-MB (CK-2) 0.5 (0.0-2.4) ng/mL CK-MB (CK-2) Rel Index 0.7 Troponin I <0.012 (0.000-0.034) ng/mL Total Protein 6.5 (6.3-8.2) g/dL Albumin 3.8 (3.5-5.0) g/dL Urine Opiates Screen (NotDetected) Ur Oxycodone Screen (NotDetected) Urine Methadone Screen (NotDetected) Ur Propoxyphene Screen (NotDetected) Ur Barbiturates Screen (NotDetected) U Tricyclic Antidepress (NotDetected) Ur Phencyclidine Scrn (NotDetected) Ur Amphetamines Screen (NotDetected) U Methamphetamines Scrn (NotDetected) U Benzodiazepines Scrn (NotDetected) Urine Cocaine Screen (NotDetected) U Marijuana (THC) Screen (NotDetected) Serum Alcohol <10 mg/dL 09/19/16 09/19/16 Range/Units 12:15 13:50 WBC (3.8-10.6) k/uL RBC (4.30-5.90) m/uL Hgb (13.0-17.5) gm/dL Hct (39.0-53.0) % MCV (80.0-100.0) fL MCH (25.0-35.0) pg MCHC (31.0-37.0) g/dL RDW (11.5-15.5) % Plt Count (150-450) k/uL Neutrophils % % Lymphocytes % % Monocytes % % Eosinophils % % Basophils % % Neutrophils # (1.3-7.7) k/uL Lymphocytes # (1.0-4.8) k/uL Monocytes # (0-1.0) k/uL Eosinophils # (0-0.7) k/uL Basophils # (0-0.2) k/uL PT 10.5 (9.0-12.0) sec INR 1.0 (<1.1) APTT 23.0 (22.0-30.0) sec Sodium (137-145) mmol/L Potassium (3.5-5.1) mmol/L Chloride (98-107) mmol/L Carbon Dioxide (22-30) mmol/L Anion Gap mmol/L BUN (9-20) mg/dL Creatinine (0.66-1.25) mg/dL Est GFR (MDRD) Af Amer (>60 ml/min/1.73 sqM) Est GFR (MDRD) Non-Af (>60 ml/min/1.73 sqM) Glucose (74-99) mg/dL Calcium (8.4-10.2) mg/dL Total Bilirubin (0.2-1.3) mg/dL AST (17-59) U/L ALT (21-72) U/L Alkaline Phosphatase (38-126) U/L Total Creatine Kinase (55-170) U/L CK-MB (CK-2) (0.0-2.4) ng/mL CK-MB (CK-2) Rel Index Troponin I (0.000-0.034) ng/mL Total Protein (6.3-8.2) g/dL Albumin (3.5-5.0) g/dL Urine Opiates Screen Not Detected (NotDetected) Ur Oxycodone Screen Not Detected (NotDetected) Urine Methadone Screen Not Detected (NotDetected) Ur Propoxyphene Screen Not Detected (NotDetected) Ur Barbiturates Screen Not Detected (NotDetected) U Tricyclic Antidepress Detected H (NotDetected) Ur Phencyclidine Scrn Not Detected (NotDetected) Ur Amphetamines Screen Not Detected (NotDetected) U Methamphetamines Scrn Not Detected (NotDetected) U Benzodiazepines Scrn Detected H (NotDetected) Urine Cocaine Screen Not Detected (NotDetected) U Marijuana (THC) Screen Detected H (NotDetected) Serum Alcohol mg/dL Disposition Clinical Impression: Ataxia, Ventral hernia, recurrent Disposition: ADMITTED IP TO THIS HOSP Referrals: Alaina Wynne MD [Primary Care Provider] - 1-2 days Time of Disposition: 15:26
[2016-09-19 12:57] LABS: Basophils % (A) 0 %; CH 31.5; CHCM 34.7; Eosinophils # (A) 0.2 k/uL (0-0.7); Eosinophils % (A) 2 %; HCT 38.2 % (39.0-53.0); HDW 2.88; Luc # (Auto) 0.15; Luc % (Auto) 2; Lymphocytes # (A) 1.2 k/uL (1.0-4.8); Lymphocytes % (A) 17 %; MCV 91.3 fL (80.0-100.0); Mean Platelet Volume 7.7; Monocytes # (A) 0.4 k/uL (0-1.0); Monocytes % (A) 6 %; Neutrophils # (A) 5.4 k/uL (1.3-7.7); Neutrophils % (A) 73 %; RBC 4.18 m/uL (4.30-5.90); RDW 14.5 % (11.5-15.5); WBC 7.4 k/uL (3.8-10.6); WBC (Perox) 7.52
[2016-09-19 13:04] LABS: Prothrombin Time 10.5 sec (9.0-12.0)
[2016-09-19 13:12] LABS: ALT 30 U/L (21-72); AST 18 U/L (17-59); Alcohol <10 mg/dL; Alkaline Phosphatase 118 U/L (38-126); Anion Gap 11 mmol/L; Blood Urea Nitrogen 11 mg/dL (9-20); Calcium 8.9 mg/dL (8.4-10.2); Carbon Dioxide 24 mmol/L (22-30); Chloride 108 mmol/L (98-107); Glucose 99 mg/dL (74-99); Non-African American GFR(MDRD) >60 (>60 ml/min/1.73 sqM); Potassium 4.5 mmol/L (3.5-5.1); Sodium 143 mmol/L (137-145); Total Bilirubin 0.5 mg/dL (0.2-1.3); Total Protein 6.5 g/dL (6.3-8.2)
[2016-09-19 13:28] LABS: Creatine Kinase 68 U/L (55-170)
[2016-09-19 13:41] LABS: Creatine Kinase MB 0.5 ng/mL (0.0-2.4); Troponin I <0.012 ng/mL (0.000-0.034)
--- NOTE | 2016-09-19 17:32 | US ---
EXAMINATION TYPE: US carotid duplex BILAT DATE OF EXAM: 09/19/2016 COMPARISON: NONE CLINICAL HISTORY: Stenosis. Dizziness EXAM MEASUREMENTS: RIGHT: Peak Systolic Velocity (PSV) cm/sec ----- Right CCA: 75.7 ----- Right ICA: 82.7 ----- Right ECA: 98.2 ICA/CCA ratio: 1.1 RIGHT: End Diastole cm/sec ----- Right CCA: 21.9 ----- Right ICA: 33.5 ----- Right ECA: 20.6 LEFT: Peak Systolic Velocity (PSV) cm/sec ----- Left CCA: 71.1 ----- Left ICA: 79.0 ----- Left ECA: 67.1 ICA/CCA ratio: 1.1 LEFT: End Diastole cm/sec ----- Left CCA: 16.7 ----- Left ICA: 30.7 ----- Left ECA: 12.1 VERTEBRALS (direction of flow): Right Vertebral: Antegrade Left Vertebral: Antegrade Mild plaque noted bilateral bifurcations. No increased velocities. No evidence of significant stenosi s IMPRESSION: There is antegrade flow in the vertebral arteries. The images and measurements suggest 1 0-20% stenosis in both internal carotid arteries. Criteria for Assigning % of Stenosis / Diameter reduction (Estimation based on the indirect measurements of the internal carotid artery velocities (ICA PSV). 1. Normal (no stenosis)=ICA PSV < 125 cm/s: ratio < 2.0: ICA EDV<40 cm/s. 2. Less than 50% stenosis=ICA PSV < 125 cm/s: ratio < 2.0: ICA EDV<40 cm/s. 3. 50 to 69% stenosis=ICA PSV of 125 to 230 cm/s: ration 2.0 ? 4.0: ICA EDV 40-100 cm/s. 4. Greater than 70% stenosis to near occlusion= ICA PSV > 230 cm/s: ratio > 4.0: ICA EDV > 100 cm/s. 5. Near occlusion= ICA PSV velocities may be low or undetectable: variable ratio and ICA EDV. 6. Total occlusion=unable to detect flow.
--- NOTE | 2016-09-19 20:19 | P.GSCN ---
History of Present Illness Consult date: 09/19/16 Reason for Consult: Abdominal pain Requesting physician: Johnson Galan History of present illness: The patient is a 51-year-old male well-known to me who had a recent open ventral hernia repair with component separation in July 2016 now 2 months ago. He had done remarkably well including losing weight and following his postoperative recovery as well as wearing an abdominal binder. Mesh was removed from his abdomen at last surgery as he reports ALLERGY to mesh, hence a soft tissue repair. Risks of recurrent including noncompliance to postsurgical care was discussed. He now presents to the hospital after having a recent blackout spell where he fell backwards and lost consciousness. He then reports waking up and upon lifting himself, he tore his recent ventral hernia repair and now presents with a new onset abdominal bulge. As a result, Gen. surgery's consult. He reports acute onset abdominal pain of the epigastrium. Review of Systems CONSTITUTIONAL: Denies any fever or chills. Denies recent weight loss or weight gain. Maintained weight loss of 20 pounds in 2 months. HEENT: Denies any trouble with vision, hearing or nosebleeds. History of candidiasis esophagitis causing dysphagia. LYMPHATIC: Reports previous submental lymphadenopathy. ENDOCRINE: Denies any thyroid disorders. Has blood sugar glucose intolerance. RESPIRATORY: Denies pneumonia. Denies recent shortness of breath. CARDIOVASCULAR: Denies any chest pain, palpitations, or recent heart attacks. GASTROINTESTINAL: Has heart burn. Has occasional constipation. No bright red blood per rectum. GENITOURINARY: Denies any blood in urine or increased urinary frequency. MUSCULOSKELETAL: Has back pain, stiffness, joint arthritis. NEUROLOGIC: Denies any numbness or tingling along the distal extremities. Has seizure disorders. PSYCHIATRIC: Has depression. No suidical ideation. HEMATOLOGIC: Denies any abnormal bleeding or bruising. B Past Medical History Past Medical History: GERD/Reflux, Hyperlipidemia, Hypertension, Musculoskeletal Disorder, Pneumonia, Respiratory Disorder, Seizure Disorder, Skin Disorder, Sleep Apnea/CPAP/BIPAP, Thyroid Disorder Additional Past Medical History / Comment(s): HX ABSCESSES LEGS, CELLULTIS. HX SEIZURE X2, 2011, BIT PART OF TONGUE OFF. NOT ABLE TO USE BIPAP. OLD FX BACK, 2002. HX MRSA Neck/Face/RT THIGH/LT CALF. ENLARGED HEART. CHRONIC BRONCHITIS.occ constipation, "past compression fx l1" History of Any Multi-Drug Resistant Organisms: MRSA Year Discovered:: 03/07/16 MDRO Source:: LEFT LEG Past Surgical History: Adenoidectomy, Appendectomy, Cholecystectomy, Heart Catheterization, Hernia Repair, Tonsillectomy Additional Past Surgical History / Comment(s): ABD HERNIA SURG X3; LAP BAND 2009 EST. 15 LAP REMOVAL OF LAP BAND AND PORT. COLONOSCOPY, EGD. EXC Areas of MRSA on face, neck, LEGS 2015. VENTRAL HERNIA REPAIR 07/2016, egd w/ bx Past Anesthesia/Blood Transfusion Reactions: Previous Problems w/ Anesthesia Additional Past Anesthesia/Blood Transfusion Reaction / Comm: 1984 DURING T&A SURG, DEVELOPED FLUID IN LUNGS, PUT ON VENT. Past Psychological History: ADD/ADHD, Anxiety, Bipolar, Depression, Panic Disorder Additional Psychological History / Comment(s): pt lives with his in a single story home that has 3 steps to enter. no pets. has a nebulizer and bipap. no outside services. 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 Smoking Status: Former smoker Past Alcohol Use History: None Reported Additional Past Alcohol Use History / Comment(s): HX SMOKING OFF/ON SINCE AGE 12 , UP TO 1 PPD, QUIT JUNE 2016 Past Drug Use History: Cocaine, Marijuana Additional Drug Use History / Comment(s): USING MEDICAL MARIJUANA, DAILY. (PT STATED WENT TO REHAB IN 1998 D/T USE OF COCAINE/CRACK). INSTRUCTED NO MARIJUANA USE TODAY - Past Family History Mother Family Medical History: No Reported History Additional Family Medical History / Comment(s): PT STATED MOM IS HEALTHY Father Family Medical History: Cancer Additional Family Medical History / Comment(s): LYMPHOMA Medications and Allergies Home Medications Medication Instructions Recorded Confirmed Type Omeprazole [PriLOSEC] 40 mg PO AC-BRKFST 03/03/14 09/19/16 History Metoprolol Succinate (ER) [Toprol 50 mg PO QAM 04/21/15 09/19/16 History XL] lamoTRIgine [LaMICtal] 200 mg PO BID 04/21/15 09/19/16 History Desvenlafaxine Succinate [Pristiq 50 mg PO DAILY 03/06/16 09/19/16 History ER] Lisinopril [Zestril] 20 mg PO DAILY 03/06/16 09/19/16 History Methylphenidate HCl [Ritalin] 20 mg PO BID 03/06/16 09/19/16 History QUEtiapine FUMARATE [SEROquel] 600 mg PO HS 03/06/16 09/19/16 History clonazePAM [KlonoPIN] 1 mg PO BID 03/06/16 09/19/16 History buPROPion HCL [Wellbutrin XL] 300 mg PO HS 07/16/16 09/19/16 History Atorvastatin Calcium [Lipitor] 20 mg PO DAILY 09/19/16 09/19/16 History Hydrocodone/Acetaminophen 1 each PO Q3-4H PRN 09/19/16 09/19/16 History [Hydrocodon-Acetaminophn 10-325] traMADol HCL [Ultram] 100 mg PO Q6HR PRN 09/19/16 09/19/16 History Allergies Allergy/AdvReac Type Severity Reaction Status Date / Time No Known Allergies Allergy Verified 09/19/16 13:22 Surgical - Exam Vital Signs Temp Pulse Resp BP Pulse Ox 98.7 F 89 18 118/77 100 09/19/16 11:47 09/19/16 11:47 09/19/16 11:47 09/19/16 11:47 09/19/16 11:47 GENERAL: Well developed and in no acute distress. Pleasant. HEENT: No sclera icterus. Extraocular movements grossly intact. Moist buccal mucosa. Head is atraumatic, normocephalic. Hears conversational speech. No nasal drainage. NECK: Supple without lymphadenopathy. No JV distention. CHEST: Non-labored respirations and equal bilateral excursions. CARDIOVASCULAR: Regular rate and rhythm. Palpable 2+ radial pulses. ABDOMEN: Soft. Tender along the epigastrium. Has bulge of 9 x 10 cm along the epigastrium. No ecchymosis. MUSCULOSKELETAL: No clubbing, cyanosis or edema. NEUROLOGIC: No focal or lateralizing signs. PSYCH: Appropriate affect. Alert and oriented to person, place and time. Results - Labs 09/19/16 12:15 09/19/16 12:15 Abnormal Lab Results - Last 24 Hours (Table) 09/19/16 09/19/16 09/19/16 Range/Units 12:15 12:15 13:50 RBC 4.18 L (4.30-5.90) m/uL Hct 38.2 L (39.0-53.0) % Chloride 108 H (98-107) mmol/L U Tricyclic Antidepress Detected H (NotDetected) U Benzodiazepines Scrn Detected H (NotDetected) U Marijuana (THC) Screen Detected H (NotDetected) Diabetes panel 09/19/16 Range/Units 12:15 Sodium 143 (137-145) mmol/L Potassium 4.5 (3.5-5.1) mmol/L Chloride 108 H (98-107) mmol/L Carbon Dioxide 24 (22-30) mmol/L BUN 11 (9-20) mg/dL Creatinine 1.07 (0.66-1.25) mg/dL Glucose 99 (74-99) mg/dL Calcium 8.9 (8.4-10.2) mg/dL AST 18 (17-59) U/L ALT 30 (21-72) U/L Alkaline Phosphatase 118 (38-126) U/L Total Protein 6.5 (6.3-8.2) g/dL Albumin 3.8 (3.5-5.0) g/dL Calcium panel 09/19/16 Range/Units 12:15 Calcium 8.9 (8.4-10.2) mg/dL Albumin 3.8 (3.5-5.0) g/dL Pituitary panel 09/19/16 Range/Units 12:15 Sodium 143 (137-145) mmol/L Potassium 4.5 (3.5-5.1) mmol/L Chloride 108 H (98-107) mmol/L Carbon Dioxide 24 (22-30) mmol/L BUN 11 (9-20) mg/dL Creatinine 1.07 (0.66-1.25) mg/dL Glucose 99 (74-99) mg/dL Calcium 8.9 (8.4-10.2) mg/dL Adrenal panel 09/19/16 Range/Units 12:15 Sodium 143 (137-145) mmol/L Potassium 4.5 (3.5-5.1) mmol/L Chloride 108 H (98-107) mmol/L Carbon Dioxide 24 (22-30) mmol/L BUN 11 (9-20) mg/dL Creatinine 1.07 (0.66-1.25) mg/dL Glucose 99 (74-99) mg/dL Calcium 8.9 (8.4-10.2) mg/dL Total Bilirubin 0.5 (0.2-1.3) mg/dL AST 18 (17-59) U/L ALT 30 (21-72) U/L Alkaline Phosphatase 118 (38-126) U/L Total Protein 6.5 (6.3-8.2) g/dL Albumin 3.8 (3.5-5.0) g/dL Assessment and Plan (1) Abdominal pain Status: Acute (2) Ataxia Status: Acute (3) Ventral hernia Status: Acute (4) Status post fall Status: Acute (5) Loss of consciousness for 30 minutes to 24 hours Status: Acute Plan: 1. On further discussion, he reports having loss of consciousness over 30 minutes where he was found by his . As a result of his recent fall he developed a traumatic recurrent ventral hernia. 2. Recommend CT of the abdomen without contrast. Likely he may develop a hematoma along the epigastrium which may cause additional pain. No surgical intervention is advised. 3. Recommend abdominal binder for comfort. 4. Will follow.
[2016-09-19] MEDS ORDERED: traMADol 50 MG TAB PO PRN (20:29)
[2016-09-19] MEDS: HYDROcodone/APAP 10-325MG 1 EACH TAB PO PRN (21:53)
[2016-09-19] MEDS: lamoTRIgine 100 MG TAB PO SCH (21:54)
[2016-09-19] MEDS: METOCLOPRAMIDE 10 MG TAB PO SCH (21:54)
[2016-09-19] MEDS: clonazePAM 1 MG TAB PO SCH (21:54)
[2016-09-19] MEDS: buPROPion XL 300 MG TAB.ER.24H PO SCH (21:54)
[2016-09-19] MEDS: QUEtiapine 200 MG TAB PO SCH (21:55)
[2016-09-19] MEDS: METHYLPHENIDATE HCL 10 MG TAB PO SCH (21:57)
[2016-09-20] MEDS: ENOXAPARIN 40 MG/0.4 ML SYRINGE SQ SCH ×2 (00:37→09:45)
[2016-09-20] MEDS: ASPIRIN 325 MG TAB PO SCH ×2 (00:37→09:33)
[2016-09-20] MEDS: HYDROcodone/APAP 10-325MG 1 EACH TAB PO PRN ×5 (00:37→20:57)
[2016-09-20 06:05] LABS: Glucose,Whole Blood 89 mg/dL (75-99)
--- NOTE | 2016-09-20 06:48 | HP ---
DATE OF ADMISSION: 09/19/2016 PRESENTING COMPLAINT: Dizzy. HISTORY OF PRESENTING COMPLAINT: A pleasant 51-year-old patient of Dr. Alaina Wynne. Chronic stable medical conditions include GERD, hyperlipidemia, hypertension, seizures. Patient for 3 days has been getting off-balance, not able to focus and gets spinning as soon as he gets up to the point his son had to get him and help him around the house. Patient also noticed he has been getting forgetful, like he will put on the TV channel and then forget what channel he was on, apparently ( ) having problems with words. The patient smoked a pack a day for 35 years; stopped 2 months ago. Patient was recently seen in [facility], where he had a CT scan and sent him home thinking it was dehydration. ( ) that speech may be a bit different per his . REVIEW OF SYSTEMS: CONSTITUTIONAL: None. HEENT: Some blurry vision. RESPIRATORY: None CARDIOVASCULAR: None. GASTROINTESTINAL: Heartburn. GENITOURINARY: None. MUSCULOSKELETAL: None. DERMATOLOGIC: None. HEMATOLOGIC: None. LYMPHATIC: None. PSYCHIATRY: None. NEUROLOGICAL: None. GI: Noted that patient did have a ventral hernia repair where he took a fall. His ventral hernia did open up. PAST MEDICAL HISTORY: GERD, hyperlipidemia, hypertension, seizures, obstructive sleep apnea, hypothyroid. PAST SURGICAL HISTORY: Adenoidectomy, appendectomy, cholecystectomy, cardiac cath, hernia repair, abdominal hernia surgery x3, lap band in 2009 and in 2014 lap band was removed, ( ) in the past. PSYCH HISTORY: Anxiety, bipolar, ADHD. SOCIAL HISTORY: . Used to be a [employer]. Now is on disability. Patient smoked a pack a day for 35 years, stopped soft 2 months ago. Does medical marijuana. Cocaine in the past. FAMILY HISTORY: Lymphoma. HOME MEDICATIONS: 1. [place] 10 one tablet q.3 p.r.n. 2. Ultram 100 mg q.8 p.r.n. 3. Lamictal 200 mg p.o. b.i.d. 4. Klonopin 1 mg p.o. b.i.d. 5. Wellbutrin XL 300 mg q.h.s. 6. Seroquel 600 mg q.h.s. 7. Prilosec 40 mg with breakfast. 8. Toprol XL 50 mg a day. 9. Reglan 10 mg with q.a.c. and at bedtime. 10. Ritalin 20 mg p.o. b.i.d. 11. Zestril 20 mg p.o. daily. 12. Pristiq ER 50 mg p.o. daily. 13. Lipitor 20 mg p.o. daily. ALLERGIES: None. On examination, temperature 97.7, pulse 67, respiration 18, blood pressure 119/68, pulse ox 97% on room air. GENERAL APPEARANCE: Average build, sitting up, not in distress. EYES: Pupils equal. Conjunctivae normal. NECK: JVD not raised. Mass not palpable. RESPIRATORY: Effort normal. LUNGS: Slightly decreased breath sounds. CARDIOVASCULAR: First and second sounds normal. No edema. ABDOMEN: Soft, nontender. Liver and spleen not palpable. LYMPHATIC: No lymph nodes palpable in the neck or axillae. PSYCHIATRY: Alert and oriented x3. Mood and affect normal. NEUROLOGICAL: Pupils equal. Cranial nerves grossly intact. Speech may be slightly slow. Patient has got pass pointing on the left side and also dysdiadochokinesia on the left side. I do not notice any obvious nystagmus. Reflexes are equal and symmetrical. Also on abdominal exam, the patient has had a ventral hernia. White count 7.4, hemoglobin 13. Potassium 4.5. Urine drug screen positive for tricyclics, benzodiazepines, marijuana. Carotid Doppler unremarkable. ASSESSMENT: 1. Episodes of severe dizziness, unable to get about the house for the last 3 days with positive cerebellar signs especially of the left side in a right-handed patient. 2. Gastroesophageal reflux disease. 3. Hyperlipidemia. 4. Hypertension. 5. Seizure disorder. 6. Obstructive sleep apnea, does not use a CPAP machine. 7. Ventral hernia opened up secondary to a fall. 8. Hypothyroidism. PLAN: At this point, patient is being put on aspirin. Patient is already on Lipitor. Home medications are resumed. Will get an MRI of the brain with contrast. Neurology is consulted. Also Dr. Juarez who had done the ventral hernia repair has been consulted. Care was discussed with the patient.
[2016-09-20] MEDS: PANTOPRAZOLE 40 MG TABLET PO SCH (07:01)
[2016-09-20] MEDS: METOCLOPRAMIDE 10 MG TAB PO SCH ×4 (07:01→20:50)
[2016-09-20 07:08] LABS: Basophils % (A) 0 %; CHCM 33.2; Eosinophils # (A) 0.2 k/uL (0-0.7); Eosinophils % (A) 4 %; HCT 35.8 % (39.0-53.0); HDW 2.75; HGB 12.1 gm/dL (13.0-17.5); Luc # (Auto) 0.18; Luc % (Auto) 3; Lymphocytes # (A) 1.9 k/uL (1.0-4.8); Lymphocytes % (A) 33 %; MCH 31.8 pg (25.0-35.0); MCHC 33.8 g/dL (31.0-37.0); MCV 93.8 fL (80.0-100.0); Monocytes # (A) 0.4 k/uL (0-1.0); Monocytes % (A) 6 %; Neutrophils # (A) 3.1 k/uL (1.3-7.7); Neutrophils % (A) 54 %; RBC 3.81 m/uL (4.30-5.90); RDW 14.9 % (11.5-15.5); WBC 5.8 k/uL (3.8-10.6); WBC (Perox) 6.06
[2016-09-20 07:22] LABS: Anion Gap 9 mmol/L; Blood Urea Nitrogen 12 mg/dL (9-20); Carbon Dioxide 27 mmol/L (22-30); Chloride 107 mmol/L (98-107); Cholesterol 131 mg/dL (<200); Glucose 88 mg/dL (74-99); HDL Cholesterol 27 mg/dL (40-60); Non-African American GFR(MDRD) >60 (>60 ml/min/1.73 sqM); Sodium 143 mmol/L (137-145); Triglycerides 260 mg/dL (<150)
--- NOTE | 2016-09-20 08:16 | CT ---
EXAMINATION TYPE: CT abdomen wo con DATE OF EXAM: 09/19/2016 HISTORY: Post OP 5 weeks Hiatal hernia repair. Midline Abdominal pain CT DLP: 648 mGycm. Automated Exposure Control for Dose Reduction was Utilized. TECHNIQUE: CT scan of the abdomen is performed without oral or IV contrast. COMPARISON: CT abdomen and pelvis July 21, 2016 FINDINGS: Within the limitations of a non-contrast study, the following observations are made. LUNG BASES: There is focal coronary artery calcification or coronary stent in the proximal RCA and di stal RCA. LIVER/GB: Cholecystectomy clips are redemonstrated. PANCREAS: No significant abnormality is seen. SPLEEN: There is 1.5 cm splenule anterior inferior spleen redemonstrated. A 4.5 cm low dense lesion o r thin-walled cyst anteriorly superiorly in the spleen is redemonstrated. ADRENALS: No significant abnormality is seen. KIDNEYS: There is redemonstration of 2-3 renal calculi measuring up to 3 mm mm in size scattered thro ughout the right kidney. There are 1-2 calculi measuring 2 mm or smaller in size in the left kidney. There is 2.5 cm simple appearing cyst upper pole level left kidney redemonstrated. BOWEL: Sutures from appendectomy are seen at base of cecum. No suspicious dilatation is seen. Surgica l changes epigastric region are noted. LYMPH NODES: No greater than 1cm abdominal lymph nodes are appreciated. OSSEOUS STRUCTURES: No significant abnormality is seen. OTHER: In the midline of the anterior abdominal wall there is large fluid collection measuring approx imately 3.0 cm AP diameter by 9.0 cm transversely by 15 cm craniocaudal dimension on sagittal image 7 1. Some surrounding ill-defined fluid is present. Majority is superficial to the abdominal cavity and rectus sheath, slight infolding is seen near axial image 44 upper to mid margin. Some more hyperdens e component could reflect blood product. There is mild calcified atherosclerotic change of aorta. IMPRESSION: 1. Nonspecific moderate-sized thin-walled fluid collection in the subcutaneous tissue of the anterior abdominal wall of upper to mid abdomen could reflect post surgical seroma, other etiologies are not excluded.
[2016-09-20] MEDS: METOPROLOL SUCCINATE (ER) 50 MG TAB.ER.24H PO SCH (09:33)
[2016-09-20] MEDS: lamoTRIgine 100 MG TAB PO SCH ×2 (09:34→20:49)
[2016-09-20] MEDS: ATORVASTATIN 20 MG TAB PO SCH (09:39)
[2016-09-20] MEDS: LISINOPRIL 20 MG TAB PO SCH ×2 (09:39→10:02)
[2016-09-20] MEDS: clonazePAM 1 MG TAB PO SCH ×2 (09:39→20:50)
[2016-09-20] MEDS: METHYLPHENIDATE HCL 10 MG TAB PO SCH ×2 (09:44→20:57)
[2016-09-20] MEDS: DESVENLAFAXINE SUCCINATE 50 MG TAB.ER.24H PO SCH (10:35)
--- NOTE | 2016-09-20 14:10 | P.PN ---
Subjective 51-year-old male being seen is sitting up taking a lunch tray. Abdominal binder in place. Patient is known to the surgical service patient had undergone a recent open ventral hernia repair in July [address] Crow. Patient states less abdominal pain. Patient reports no nausea vomiting urinating no difficulty no stool hemoglobin this morning 12.1 admitting hemoglobin 13 electrolytes within normal limits Objective - Vital Signs Vital signs: Vital Signs Temp 97.1 F L 09/20/16 12:00 Pulse 80 09/20/16 12:00 Resp 20 09/20/16 12:00 BP 131/89 09/20/16 12:00 Pulse Ox 98 09/20/16 12:00 Intake & Output 09/19/16 09/20/16 09/20/16 18:59 06:59 18:59 Intake Total 180 Balance 180 Weight 88.451 kg 89.2 kg Intake: Oral 180 Other: Voiding Method Toilet Toilet Urinal Urinal # Voids 1 - Exam Physical exam 51-year-old male well developed and in no acute distress pleasant cooperative taking a diet no difficulty in swallowing Lungs essentially clear adequate air movement Heart S1-S2 audible and regular denying chest pain Abdomen soft slight tenderness along the epigastrium. Bulge 9 x 10 centimeters along the epigastrium not distended bowel tones present reports no nausea vomiting reports urinating no difficulty Extremities no edema noted - Labs CBC & Chem 7: 09/20/16 06:41 09/20/16 06:41 Labs: Abnormal Lab Results - Last 24 Hours (Table) 09/19/16 09/20/16 09/20/16 Range/Units 13:50 06:41 06:41 RBC 3.81 L (4.30-5.90) m/uL Hgb 12.1 L (13.0-17.5) gm/dL Hct 35.8 L (39.0-53.0) % Triglycerides 260 H (<150) mg/dL HDL Cholesterol 27 L (40-60) mg/dL TSH 5.890 H (0.465-4.680) mIU/L U Tricyclic Antidepress Detected H (NotDetected) U Benzodiazepines Scrn Detected H (NotDetected) U Marijuana (THC) Screen Detected H (NotDetected) Assessment and Plan Plan: Impression Acute abdominal pain likely due to abdominal hematoma Episode of acute ataxia Status post fall prior to admission Status post recent ventral hernia repair July 2016 Loss of consciousness prior to admission CAT scan abdomen and pelvis moderate sized fluid collection in the subcutaneous tissue of the anterior abdominal wall no evidence of a hernia likely a hematoma Plan Reinforced to the patient the need to wear the abdominal binder for comfort and support No surgical intervention is advised Defer to medicine service for medical management Will follow The above dictated assessment and findings were discussed with dr Juarez Impression and the plan of care have been dictated as directed. Myrna Magallon nurse practitioner acting as a scribe for Dr. Juarez
--- NOTE | 2016-09-20 14:36 | P.PN ---
Progress Note - Text DATE OF SERVICE: 09/20/2016 PRESENTING COMPLAINT: Dizziness INTERVAL HISTORY: Patient admitted for dizziness, neurology consulted, MRI negative for acute process, continues to have spinning when ambulating, surgery saw patient and no plans for any interventions for now. Patient tolerating diet, moved his bowels , sitting up at the bedside as he can tolerate. REVIEW OF SYSTEMS: Done for constitutional ,cardiovascular, GI, pulmonary, neurologic with relevant findings as above. CURRENT MEDICATIONS [place], albuterol, Zyloprim, Xanax, aspirin, Plavix, midodrine, singulair PHYSICAL EXAM: VITAL SIGNS: Temperature 96.8, pulse 73 respiratory rate 20 blood pressure 84/ 50 oxygen saturation 92% on 3 L GENERAL APPEARANCE: Lying in bed, appears comfortable . EYES: Pupils equal. Conjunctiva normal. NECK: JVD not raised. Mass not palpable. RESPIRATORY: Respiratory effort lungs diminished bilaterally CARDIOVASCULAR: First and second sounds normal. No edema. ABDOMEN: Soft. Liver and spleen not palpable. No tenderness. No mass palpable. Ventral hernia noted PSYCHIATRY: Alert and oriented x3. Mood and affect normal. NEUROLOGICAL: Speech slow, INVESTIGATIONS: Hemoglobin 12.1, triglycerides 260, HDL 27, TSH 5.89, free T4 0.91. Carotid Doppler: 10-20% stenosis of both internal carotid arteries ASSESSMENT: Severe dizziness, unable to leave home for 3 days positive cerebellar signs, especially the left side in a right-handed patient. Gastroesophageal reflux disease. Hyperlipidemia. Hypertension. Seizure disorder Obstructive sleep apnea, does not use a CPAP machine. Ventral hernia opened up secondary to a fall. Hypothyroidism. PLAN: Surgical services has no plans for surgical intervention on the ventral hernia, binder ordered. Await additional neuroimaging of an MRI and neurology input. Plan of care discussed with the patient will continue to monitor closely. APPLICATION DEVELOPMENT TEAM LEAD statement: Patient was seen and examined by nurse practitioner Shabnam Licea in all elements of the case discussed with attending is Dr. Galan
--- NOTE | 2016-09-20 15:43 | MR ---
EXAMINATION TYPE: MR brain wo/w con DATE OF EXAM: 09/20/2016 COMPARISON: CT brain May 21, 2014. HISTORY: Blurred vision and blacked out. TECHNIQUE: Multiplanar, multisequence images of the brain and brainstem is performed without and with IV contras t, utilizing 18 mL intravenous MultiHance . FINDINGS: Diffusion weighted images demonstrate no evidence of a recent infarct or other diffusion ab normality. There is no extra-axial fluid collection or significant white matter signal abnormality. The ventricular system and cisternal spaces are normal in size and appearance. The brain volume is age appropriate. Midline structures demonstrate normal morphology. The craniocervical junction appears within normal limits. Post contrast images demonstrate no abnormal enhancement. The dural venous sinuses appear pa tent. Mild mucosal thickening left ethmoid sinuses is present. Remainder paranasal sinuses are clear. Globes are intact bilaterally. IMPRESSION: No suspicious finding is seen to account for patient's symptoms. No evidence of a recent infarct.
[2016-09-20 16:16] VITALS: RESP 18
[2016-09-20] MEDS ORDERED: MECLIZINE 25 MG TAB PO PRN (18:39)
--- NOTE | 2016-09-20 19:00 | P.PN ---
Progress Note - Text Patient seen and evaluated. CT of the abdomen reviewed in detail demonstrating no recurrent abdominal wall hernia. Findings consistent with acute abdominal wall hematoma which is giving the appearance of abdominal bulge or recurrent ventral hernia. He has developed a traumatic abdominal wall hematoma. Recommend abdominal binder for comfort. No acute surgical intervention is required as hematoma usually subsides and resorbs with expectant management. Ideally, should he have persistent swelling and pain then he will be best suited with seroma drainage at least 3-4 weeks out for symptom resolution.
[2016-09-20] MEDS: QUEtiapine 200 MG TAB PO SCH (20:50)
[2016-09-20] MEDS: buPROPion XL 300 MG TAB.ER.24H PO SCH (20:50)
[2016-09-20] MEDS: MECLIZINE 25 MG TAB PO SCH (21:55)
[2016-09-21 06:01] LABS: Basophils % (A) 0 %; CH 31.3; CHCM 34.6; Eosinophils # (A) 0.2 k/uL (0-0.7); Eosinophils % (A) 3 %; HCT 35.8 % (39.0-53.0); HDW 2.99; HGB 12.1 gm/dL (13.0-17.5); Luc # (Auto) 0.17; Luc % (Auto) 3; Lymphocytes # (A) 1.7 k/uL (1.0-4.8); Lymphocytes % (A) 31 %; MCH 30.8 pg (25.0-35.0); MCHC 33.9 g/dL (31.0-37.0); MCV 90.8 fL (80.0-100.0); Mean Platelet Volume 7.7; Monocytes # (A) 0.4 k/uL (0-1.0); Monocytes % (A) 8 %; Neutrophils # (A) 2.9 k/uL (1.3-7.7); Neutrophils % (A) 54 %; RBC 3.94 m/uL (4.30-5.90); RDW 14.4 % (11.5-15.5); WBC 5.4 k/uL (3.8-10.6)
[2016-09-21 06:16] LABS: Anion Gap 10 mmol/L; Blood Urea Nitrogen 13 mg/dL (9-20); Carbon Dioxide 26 mmol/L (22-30); Chloride 105 mmol/L (98-107); Glucose 93 mg/dL (74-99); Non-African American GFR(MDRD) >60 (>60 ml/min/1.73 sqM); Sodium 141 mmol/L (137-145)
[2016-09-21] MEDS: METOCLOPRAMIDE 10 MG TAB PO SCH ×3 (06:29→17:27)
[2016-09-21] MEDS: PANTOPRAZOLE 40 MG TABLET PO SCH (06:29)
--- NOTE | 2016-09-21 06:32 | CONS ---
DATE OF CONSULTATION: 09/20/2016 CHIEF COMPLAINT: Dizziness. HISTORY OF PRESENT ILLNESS: Mr. Renteria is a pleasant 51-year-old male who is being evaluated by the neurology service per the request of Dr. Galan for uncontrolled dizziness. The patient states that he has been having recurrent dizziness for several months, but over the past 2 to 3 weeks, the symptoms have been more severe and more frequent. He describes the dizziness as a vertigo sensation. This past week, the symptoms have been so bad that he had actually passed out. He reports having 3 to 4 episodes of syncope over the past week. He denies any double vision or headache. He does report that he has been having some memory difficulties over the past few weeks. Initially, he was taken to [facility] where a CT scan of the brain was done and it was normal according to the chart. On this admission here, he did have a laboratory workup and I did review his CBC, which showed mild anemia with a hemoglobin of 12.1 and hematocrit of 35%. His basic metabolic profile was normal. His fasting lipid panel was normal except for elevated triglycerides at 260. His TSH was slightly elevated at 5.89, but his free T4 level was normal. His urine drug screen was positive for tricyclic antidepressants, benzodiazepine and marijuana. At the time of my evaluation, the patient is sitting up in his bed and appears to be in no acute distress. He continues to report some dizziness whenever he gets up out of bed. He denies any lateralizing numbness or weakness. He does complain of chronic low back pain. He states he suffered a lumbar fracture in 2002 and has been living with constant low back pain since then. He does take hydrocodone 3 times daily along with Ultram 4 times daily. PAST MEDICAL HISTORY: Chronic pain syndrome, gastroesophageal reflux disease, dyslipidemia, hypertension, bipolar disorder, hypothyroidism, obstructive sleep apnea, history of appendectomy, adenoidectomy, cholecystectomy, hernia repair. He also has history of anxiety disorder. SOCIAL HISTORY: The patient quit smoking 2 months ago. He has a 35 pack year history of smoking. He does admit to previous cocaine use. He does smoke marijuana occasionally. He denies any alcohol use. FAMILY HISTORY: Positive for cancer. HOME MEDICATIONS: Reviewed in the chart. ALLERGIES: No known drug allergies. REVIEW OF SYSTEMS: CONSTITUTIONAL: Negative. EYES: Negative. ENT: Negative. He denies any significant hearing loss or tinnitus. CARDIOVASCULAR: Negative. RESPIRATORY: Negative. NEUROLOGICAL: As mentioned abo e. GASTROINTESTINAL: Positive for occasional heartburn. GENITOURINARY: Negative. PSYCHIATRIC: As mentioned above. MUSCULOSKELETAL: As mentioned above. DERMATOLOGICAL: Negative. ENDOCRINE: Negative. PHYSICAL EXAMINATION: Vital signs show a temperature of 97.0, pulse 61, respiration 18, blood pressure 96/62. GENERAL APPEARANCE: The patient is a well-developed, male who appears to be in no acute distress. HEENT: Normocephalic, atraumatic. Extraocular muscles are intact. No nystagmus is seen. No facial asymmetry is noticed. Neck is supple with no masses felt. CARDIOVASCULAR: Regular rate and rhythm. ABDOMEN: Nontender, nondistended. Extremities showed no edema or clubbing. NEUROLOGICAL EXAM: The patient is alert aware, and oriented x3. Speech and language are normal. Strength is full in all 4 extremities. Sensory exam was normal to light touch in all 4 extremities. No pronator drift is seen. No facial asymmetry is noticed on cranial nerve testing. No tremors or seizure like activity is seen. IMPRESSION: 1. Intractable vertigo. 2. Chronic pain syndrome. 3. Lumbago. RECOMMENDATION: The patient continues to have intractable vertigo. His neurological examination is normal. I did review his MRI of the brain, which was within normal. The patient was reassured from that standpoint. I will try him on meclizine 25 mg p.r.n. An EEG has been ordered. The patient will need further outpatient neurological workup for vertigo and for his chronic lumbago. He can follow up with me in clinic after his discharge. I will check his response to meclizine and if he is feeling better tomorrow, he will be cleared for discharge from a neurology standpoint. I will continue to follow with you. Further recommendations to follow. Thank you for allowing me to participate in the care of your patient. If you have any questions, please feel free to contact me.
--- NOTE | 2016-09-21 07:47 | PN ---
DATE OF SERVICE: 09/20/2016 ATTENDING NOTE: PRESENTING COMPLAINT: Dizziness. INTERVAL HISTORY: This is a patient admitted with severe dizziness. MRI of the brain was done. Does not show any cerebellar stroke. The patient still getting episodes of room spinning when he tried to walk today. Does not have any symptoms when he is actually rolling about in bed. Patient's at the bedside. I reviewed the note of my nurse practitioner, Ms. Palmahaiclifford. Reviewed additional findings as above. ON EXAMINATION: LUNGS: Decreased breath sounds. CARDIOVASCULAR: First and second sounds normal. PSYCH: Alert and oriented x3. Mood and affect normal. INVESTIGATIONS: MRI did not show signs of any findings stroke. Carotid Doppler unremarkable. INVESTIGATIONS: White count 5.8. TSH is 5.8. LDL is 52. ASSESSMENT: 1. Acute severe dizziness in a patient whose MRI is negative. Patient as well could be having vestibulitis. 2. Ventral hernia opened up secondary to fall, now has got a binder in place. No surgical intervention. PLAN: Care was discussed with the patient and his in detail. Will put the patient on scheduled dose of Antivert 25 mg 3 times a day. Will follow.
[2016-09-21] MEDS: ASPIRIN 325 MG TAB PO SCH (09:25)
[2016-09-21] MEDS: lamoTRIgine 100 MG TAB PO SCH (09:26)
[2016-09-21] MEDS: DESVENLAFAXINE SUCCINATE 50 MG TAB.ER.24H PO SCH (09:26)
[2016-09-21] MEDS: ENOXAPARIN 40 MG/0.4 ML SYRINGE SQ SCH (09:26)
[2016-09-21] MEDS: ATORVASTATIN 20 MG TAB PO SCH (09:26)
[2016-09-21] MEDS: LISINOPRIL 20 MG TAB PO SCH (09:27)
[2016-09-21] MEDS: MECLIZINE 25 MG TAB PO SCH ×2 (09:27→17:27)
[2016-09-21] MEDS: METOPROLOL SUCCINATE (ER) 50 MG TAB.ER.24H PO SCH (09:27)
[2016-09-21] MEDS: HYDROcodone/APAP 10-325MG 1 EACH TAB PO PRN ×3 (09:27→17:28)
[2016-09-21] MEDS: clonazePAM 1 MG TAB PO SCH (09:29)
[2016-09-21] MEDS: METHYLPHENIDATE HCL 10 MG TAB PO SCH (09:33)
--- NOTE | 2016-09-21 11:03 | CDI ---
In responding to this query, please exercise your independent professional judgment. The [facility] Coding Staff and Clinical Documentation Specialists appreciate your assistance in clarifying documentation, maintaining compliance with coding guidelines, accurately documenting patients condition and capturing severity of illness. The fact that a question is asked does not imply that any particular answer is desired or expected. Communication forms are a method of clarifying documentation and are not made part of the Legal Health Record. Thank you in advance for your clarification. Last Revision, February 2015 Shanita Baker [address] [facility] [place] [address] Documentation Clarification Form Date: 09/21/2016 10:35:00 AM From: Ramya Sinai Admit Date: 09/19/2016 3:29:00 PM Patient Name: El Renteria Visit Number: [id number] Discharge Date: Dr. Rigoberto Funez Intractable vertigo is in your consult on 09/20/16. Patient history/risk factors: Chronic pain syndrome, Hypertension Bipolar disorder Clinical Indicators: Patient Complains of uncontrolled dizziness that is recurrent for several months. He describes the dizziness as a vertigo sensation. He report dizziness whenever he gets up out of bed. MRI Brain: within normal Vital Signs: 118/77 89 18 98.7 Treatment: Meclizine PO Neurological assessment per protocol In your professional opinion, can you please further clarify intractable vertigo ? (And specify laterality of condition: left, right, bilaterally) Benign paroxysmal (positional) Cerebral Labyrinthine Meniere's Other Unable to determine Please document in your progress notes in order to capture severity of illness and risk of mortality. Include clinical findings that support your diagnosis. FYI: Press F11 to launch patient chart. Place X here if this finding has no clinical significance, is not applicable or if you are not able to provide any additional documentation. LIA
[2016-09-21 11:13] VITALS: TEMP 97.3
--- NOTE | 2016-09-21 11:22 | CDI ---
In responding to this query, please exercise your independent professional judgment. The [facility] Coding Staff and Clinical Documentation Specialists appreciate your assistance in clarifying documentation, maintaining compliance with coding guidelines, accurately documenting patients condition and capturing severity of illness. The fact that a question is asked does not imply that any particular answer is desired or expected. Communication forms are a method of clarifying documentation and are not made part of the Legal Health Record. Thank you in advance for your clarification. Last Revision, February 2015 Shanita Baker [address] [place] [address] Documentation Clarification Form Date: 09/21/2016 11:05:00 AM From: Ramyamagdalena Rawls Admit Date: 09/19/2016 3:29:00 PM Patient Name: El Renteria Visit Number: [id number] Discharge Date: Dr. Johnson Galan Conflicting documentation has been found in the medical record. H&P and progress notes has ventral hernia opened up secondary to fall. Surgical Consultation on 09/20/16: Acute abdominal pain likely due to abdominal hematoma CT scan abdomen/pelvis: Moderate sized fluid collection in the subcutaneous tissue of the anterior abdominal wall no recurrent abdominal wall hernia. Findings consistent with acute abdominal wall hematoma which is giving the appearance of abdominal bulge or recurrent ventral hernia. (per surgical progress notes). History/Risk Factors: ventral hernia repair x3, hypertension, Seizure Clinical Indicators: Fall and about 5 weeks post op ventral hernia repair. Treatment: Abdominal Binder In your opinion what is the most clinically appropriate diagnosis for this patient? Abdominal hematoma (recurrent ventral hernia ruled out) Ventral hernia secondary to fall OTHER explanation of clinical findings Unable to determine (no explanation for clinical findings) Please document in your progress notes and discharge summary in order to capture severity of illness and risk of mortality. Include clinical findings that support your diagnosis. FYI: Press F11 to launch patient chart. Place X here if this finding has no clinical significance, is not applicable or if you are not able to provide any additional documentation. LIA
--- NOTE | 2016-09-21 13:49 | P.PN ---
Progress Note - Text DATE OF SERVICE: 09/21/2016 PRESENTING COMPLAINT: Dizziness INTERVAL HISTORY: Patient admitted for dizziness, neurology consulted, MRI negative for acute process, continues to have spinning when ambulating, surgery saw patient for hernia, suggest abdominal binder, no plans for any interventions for now. MRI of the brain within normal limits, patient to follow up with neurology outpatient for vertigo and chronic lumbago. Patient tolerating diet, moved his bowels, sitting up at the bedside as he can tolerate, walks with assistance due to residual dizziness. Discharge plans discussed with patient, and is agreeable. REVIEW OF SYSTEMS: Done for constitutional ,cardiovascular, GI, pulmonary, neurologic with relevant findings as above. CURRENT MEDICATIONS [place], albuterol, Zyloprim, Xanax, aspirin, Plavix, midodrine, singulair PHYSICAL EXAM: VITAL SIGNS: Temperature 97.3, pulse 74, blood pressure 113/74, oxygen saturation 95% on room air. GENERAL APPEARANCE: Sitting up on the bedside, appears comfortable . EYES: Pupils equal. Conjunctiva normal. NECK: JVD not raised. Mass not palpable. RESPIRATORY: Respiratory effort lungs diminished bilaterally CARDIOVASCULAR: First and second sounds normal. No edema. ABDOMEN: Soft. Liver and spleen not palpable. No tenderness. No mass palpable. Ventral hernia noted PSYCHIATRY: Alert and oriented x3. Mood and affect normal. NEUROLOGICAL: Speech slow, reflexes equal and symmetrical, no nystagmus. INVESTIGATIONS: White blood cell count 5.4, hemoglobin 12.1, platelet count 157, BUN 13 creatinine 1.20 Carotid Doppler: 10-20% stenosis of both internal carotid arteries MRI of the brain: No acute process ASSESSMENT: Severe dizziness, unable to leave home for 3 days positive cerebellar signs, especially the left side in a right-handed patient. Gastroesophageal reflux disease. Hyperlipidemia. Essential Hypertension. Seizure disorder Obstructive sleep apnea, does not use a CPAP machine. Abdominal hematoma secondary to a ventral hernia which opened up secondary to a fall. Hypothyroidism. PLAN: Surgical services has no plans for surgical intervention on the ventral hernia at this time, binder in place. We'll monitor patient's response to the addition of meclizine and if symptoms are better okay from neurology standpoint to discharge. Plan of care discussed with the patient will continue to monitor closely. WATER RESOURCE CONSULTANT statement: Patient was seen and examined by nurse practitioner Shabnam Licea in all elements of the case discussed with attending is Dr. Galan
[2016-09-21] MEDS ORDERED: LACTULOSE 20 GM/30 ML CUP PO ONE (14:22)
--- NOTE | 2016-09-21 16:30 | P.PN ---
Subjective Principal diagnosis: Dizziness This pleasant 51-year-old male continue be evaluated by the neurology service for dizziness. This been happening for several months and worsening in the past 2-3 weeks. He describes dizziness and vertigo sensation. He does believe that he has passed out a couple times. He does also report some memory difficulties. He is having some double vision. Initially is taken [facility] on initial CT was normal. Initial urine drug screen was positive for tricyclic antidepressants, benzodiazepines, and marijuana. At time my exam he is sitting up at his bedside in no acute distress. His symptoms are fairly well controlled with Antivert 3 times daily. Objective - Vital Signs Vital signs: Vital Signs Temp 97.3 F L 09/21/16 08:00 Pulse 74 09/21/16 12:00 Resp 18 09/21/16 04:00 BP 125/79 09/21/16 12:00 Pulse Ox 96 09/21/16 12:00 Intake & Output 09/20/16 09/21/16 09/21/16 18:59 06:59 18:59 Intake Total 740 300 180 Output Total 250 400 Balance 490 300 -220 Weight 88.7 kg Intake: Oral 740 300 180 Output: Urine 250 400 Other: Voiding Method Toilet Toilet Urinal Urinal # Voids 1 1 - Constitutional General appearance: Present: average body habitus, cooperative, no acute distress - EENT EENT Comment(s): Moderate exophthalmos Eyes: Present: EOMI, PERRLA. Absent: abnormal pupil, ptosis - Neck Neck: Present: normal ROM. Absent: rigidity - Respiratory Respiratory: negative: prolonged expiration, prolonged inspiration - Cardiovascular Rhythm: regular - Gastrointestinal General gastrointestinal: Present: ventral hernia. Absent: distended - Neurologic Neurologic Comment(s): Patient is alert awake and oriented 3. Speech and language are normal. There is no lateralizing weakness. Strength is full in all 4 extremities there is no sensory deficit. No pronator drift seen. No tremors or seizure-like activities are seen. Cranial nerves II through XII are intact globally. - Labs CBC & Chem 7: 09/21/16 05:40 09/21/16 05:40 Labs: Abnormal Lab Results - Last 24 Hours (Table) 09/21/16 Range/Units 05:40 RBC 3.94 L (4.30-5.90) m/uL Hgb 12.1 L (13.0-17.5) gm/dL Hct 35.8 L (39.0-53.0) % Assessment and Plan (1) Vertigo Status: Acute (2) Dizziness Status: Acute (3) Visual disturbance Status: Suspected (4) Lumbago Status: Chronic (5) Chronic pain Status: Chronic Plan: His symptoms of vertigo have largely resolved likely due to meclizine. He will continue this. His MRI of the brain was normal. He will need further neurological evaluation an outpatient basis for his vertigo and his chronic pain issues. His visual disturbances will also be investigated. He does have some exophthalmus which may be an indicator of worsening thyroid disease. Would recommend ophthalmology Evaluation as well as PCP follow-up for his thyroid. He is otherwise cleared from a neurological standpoint. I have performed a history and physical on the above patient. I have reviewed the above note, and agree.
[2016-09-21 18:38] VITALS: BP 111/69; PULSE 65
--- NOTE | 2016-09-22 20:48 | DS ---
DATE OF ADMISSION: 09/19/2016 DATE OF DISCHARGE: 09/21/2016 FINAL DIAGNOSES: 1. Possibly acute labyrinthitis/vestibulitis. 2. Gastroesophageal reflux disease. 3. Hyperlipidemia. 4. Hypertension. 5. Seizure disorders. 6. Obstructive sleep apnea, does not use CPAP machine. 7. Ventral hernia secondary to fall, opened up and previous repair. 8. Hypothyroidism. HOSPITAL COURSE: This patient presented with acute dizziness, spinning of the room. MRI of the brain was negative. [place] to be possibly acute vestibulitis/labyrinthitis. Responded to Antivert, doing better. Started using a walker. Seen by Dr. Funez from neurology. Okayed to be discharged. The patient also had abdominal ventral hernia repair after yet taking a fall that opened up. This will be followed by Ann as an outpatient. No intervention for now. Care was discussed in detail with the patient and daughter at bedside. On examination the patient is gait is okay with a walker. Abdominal ventral wall hernia. DISCHARGE MEDICATIONS: 1. Prilosec 40 mg a day. 2. Toprol-XL 50 mg a day. 3. Lamictal 200 mg b.i.d. 4. Pristiq ER 50 mg a day. 5. Zestril 20 mg a day. 6. Ritalin 20 mg b.i.d. 7. Seroquel 600 milligrams q.h.s. 8. Klonopin 1 mg p.o. b.i.d. 9. Wellbutrin XL 300 mg q.h.s. 10. Reglan 10 mg before meals and q.h.s. 11. Lipitor 20 mg a day. 12. Willis 10 1 tablets q.3 p.r.n. 13. Ultram 100 mg q.6 p.r.n. 14. Antivert 25 mg p.o. t.i.d. for 7 days. Patient uses a walker. Follow with Alaina Wynne in 2 days. Follow up with Dr. Funez in one week. Follow up ( ) maintained. Patient TSH slightly elevated but clinically does not appear to be hypothyroid and hence, dose will not be changed. Did spend about 35 minutes.
--- NOTE | 2016-09-23 09:47 | EEG ---
DATE OF SERVICE: 09/21/2016 INDICATIONS FOR EXAMINATION: Altered mental status and syncope. AGE: 51Y DESCRIPTION OF PROCEDURE: This EEG was performed using a 21-channel digital electroencephalograph, following international 10 to 20 system. DESCRIPTION OF RECORDING: From the beginning of the tracing, and with the patient's eyes closed, the background rhythm was mostly consisting of 6 to 7 Hz theta frequency in the posterior occipital lead. No obvious asymmetry is seen. Occasional movement artifacts are noticed. Photic stimulation was performed with no driving response seen. No pathological waves were elicited. Hyperventilation was not performed. The patient remains awake throughout the tracing. No epileptiform discharges were seen. EKG leads showed a regular rate and rhythm. INTERPRETATION: This awake EEG is abnormal due to the presence of generalized slowing of the background rhythm, mostly in the theta range. This is consistent with mild encephalopathy. No epileptiform discharges were seen. The absence of epileptiform discharges does not rule out the diagnosis of epilepsy, therefore clinical correlation is recommended.
--- NOTE | 2016-09-28 19:53 | DS ---
DATE OF ADMISSION: 09/19/2016 DATE OF DISCHARGE: 09/21/2016 ADDENDUM: CORRECTION: The patient has an abdominal wall hematoma secondary to fall and does not have re-opening of the ventral hernia as previously dictated.
== END 2016-09-21 19:19 | disposition home or self-care (01) | DRG 149 ==
LOC: EC 11:44 → 6SEL 15:29
PROVIDERS: ADMIT Hospitalist; ATTEND Hospitalist
DX: H83.09 Labyrinthitis, unspecified ear (principal); I11.9 Hypertensive heart disease without heart failure; D64.9 Anemia, unspecified; S30.1XXA Contusion of abdominal wall, initial encounter; F32.9 Major depressive disorder, single episode, unspecified; E03.9 Hypothyroidism, unspecified; E78.1 Pure hyperglyceridemia; E78.5 Hyperlipidemia, unspecified; E86.0 Dehydration; F12.90 Cannabis use, unspecified, uncomplicated; F41.0 Panic disorder [episodic paroxysmal anxiety]; F90.9 Attention-deficit hyperactivity disorder, unspecified type; G40.909 Epilepsy, unspecified, not intractable, without status epilepticus; G47.33 Obstructive sleep apnea (adult) (pediatric); G89.4 Chronic pain syndrome; J42 Unspecified chronic bronchitis; K21.9 Gastro-esophageal reflux disease without esophagitis; F41.9 Anxiety disorder, unspecified; M54.5 Low back pain; K43.2 Incisional hernia without obstruction or gangrene; Z79.899 Other long term (current) drug therapy; Z86.14 Personal history of Methicillin resistant Staphylococcus aureus infection; Z87.891 Personal history of nicotine dependence; Z98.84 Bariatric surgery status; W19.XXXA Unspecified fall, initial encounter
CPT/HCPCS: 36415; 70553; 74150; 80048; 80053; 80061; 80306; 80320; 82550; 82553; 84439; 84443; 84484; 85025; 85610; 85730; 93005; 93880; 95819

== ENCOUNTER 2016-10-29 18:13 | Inpatient (IN) | payer MEDICARE, OTHER ==
--- NOTE | 2016-10-29 18:30 | ED ---
General Adult HPI - General Chief complaint: Shortness of Breath Stated complaint: pneumonia Time Seen by Provider: 10/29/16 18:21 Source: EMS, RN notes reviewed Mode of arrival: EMS Limitations: no limitations - History of Present Illness Initial comments: This a 51-year-old male presents emergency Department with chief complaint pneumonia. Patient is transferred from [facility] for pneumonia. Patient was recently treated for pneumonia on outpatient antibiotics but did not have improvement went to the ER at [facility] found to have pneumonia on CT. Patient states he has been having a fever at home and increased cough and congestion. Patient does take chronic antibiotics and is on Bactrim for recurrent MRSA. Patient states that he's also had increase in swelling abdominal discomfort in location where he had his ventral hernia repair by Dr. Crow in August. Patient states that he had a fall in September he had some swelling and recurrence of this hernia. He states the area is more tender and increased in size. CT does show fluid collection increased from prior fluid collection. Patient denies any current nausea vomiting diarrhea constipation. Patient states he's had no prior COPD or asthma issues. - Related Data Home Medications Medication Instructions Recorded Confirmed Omeprazole [PriLOSEC] 40 mg PO AC-BRKFST 03/03/14 09/19/16 Metoprolol Succinate (ER) [Toprol 50 mg PO QAM 04/21/15 09/19/16 XL] lamoTRIgine [LaMICtal] 200 mg PO BID 04/21/15 09/19/16 Desvenlafaxine Succinate [Pristiq 50 mg PO DAILY 03/06/16 09/19/16 ER] Lisinopril [Zestril] 20 mg PO DAILY 03/06/16 09/19/16 Methylphenidate HCl [Ritalin] 20 mg PO BID 03/06/16 09/19/16 QUEtiapine FUMARATE [SEROquel] 600 mg PO HS 03/06/16 09/19/16 clonazePAM [KlonoPIN] 1 mg PO BID 03/06/16 09/19/16 buPROPion HCL [Wellbutrin XL] 300 mg PO HS 07/16/16 09/19/16 Atorvastatin Calcium [Lipitor] 20 mg PO DAILY 09/19/16 09/19/16 Hydrocodone/Acetaminophen 1 each PO Q3-4H PRN 09/19/16 09/19/16 [Hydrocodon-Acetaminophn 10-325] traMADol HCL [Ultram] 100 mg PO Q6HR PRN 09/19/16 09/19/16 Previous Rx's Medication Instructions Recorded Metoclopramide [Reglan] 10 mg PO ACHS #30 tab 09/05/16 Meclizine [Antivert] 25 mg PO TID #21 tab 09/21/16 Allergies Allergy/AdvReac Type Severity Reaction Status Date / Time No Known Allergies Allergy Verified 09/19/16 13:22 Review of Systems ROS Statement: Those systems with pertinent positive or pertinent negative responses have been documented in the HPI. ROS Other: All systems not noted in ROS Statement are negative. Past Medical History Past Medical History: GERD/Reflux, Hyperlipidemia, Hypertension, Musculoskeletal Disorder, Pneumonia, Respiratory Disorder, Seizure Disorder, Skin Disorder, Sleep Apnea/CPAP/BIPAP, Thyroid Disorder Additional Past Medical History / Comment(s): HX ABSCESSES LEGS, CELLULTIS. HX SEIZURE X2, 2011, BIT PART OF TONGUE OFF. NOT ABLE TO USE BIPAP. OLD FX BACK, 2002. HX MRSA Neck/Face/RT THIGH/LT CALF. ENLARGED HEART. CHRONIC BRONCHITIS.occ constipation, "past compression fx l1" History of Any Multi-Drug Resistant Organisms: MRSA Date of last positivie culture/infection: 03/07/16 MDRO Source:: LEFT LEG Past Surgical History: Adenoidectomy, Appendectomy, Cholecystectomy, Heart Catheterization, Hernia Repair, Tonsillectomy Additional Past Surgical History / Comment(s): ABD HERNIA SURG X3; LAP BAND 2009 EST. 15 LAP REMOVAL OF LAP BAND AND PORT. COLONOSCOPY, EGD. EXC Areas of MRSA on face, neck, LEGS 2016. VENTRAL HERNIA REPAIR 07/2016, egd w/ bx Past Anesthesia/Blood Transfusion Reactions: Previous Problems w/ Anesthesia Additional Past Anesthesia/Blood Transfusion Reaction / Comment(s): 1985 DURING T&A SURG, DEVELOPED FLUID IN LUNGS, PUT ON VENT. Past Psychological History: ADD/ADHD, Anxiety, Bipolar, Depression, Panic Disorder Smoking Status: Former smoker Past Alcohol Use History: None Reported Past Drug Use History: Cocaine, Marijuana - Past Family History Mother Family Medical History: No Reported History Additional Family Medical History / Comment(s): PT STATED MOM IS HEALTHY Father Family Medical History: Cancer Additional Family Medical History / Comment(s): LYMPHOMA General Exam Limitations: no limitations General appearance: alert, in no apparent distress Head exam: Present: atraumatic, normocephalic, normal inspection Neck exam: Present: normal inspection, full ROM. Absent: tenderness, meningismus, lymphadenopathy Respiratory exam: Present: rhonchi (Right lower). Absent: normal lung sounds bilaterally, respiratory distress, wheezes, rales, stridor Cardiovascular Exam: Present: regular rate, normal rhythm, normal heart sounds. Absent: systolic murmur, diastolic murmur, rubs, gallop, clicks GI/Abdominal exam: Present: soft, tenderness (Moderate mid abdominal tenderness) , normal bowel sounds, other (Midline surgical scar noted with surrounding swelling and tenderness). Absent: distended, guarding, rebound, rigid Back exam: Absent: CVA tenderness (R), CVA tenderness (L) Skin exam: Present: warm, dry, intact, normal color. Absent: rash Course Vital Signs 10/29/16 18:15 Temperature 98.8 F Pulse Rate 72 Respiratory 16 Rate Blood Pressure 114/69 O2 Sat by Pulse 96 Oximetry Disposition Clinical Impression: Ventral hernia, recurrent, Pneumonia, Failure of outpatient treatment Disposition: ADMITTED IP TO THIS HOSP Condition: Stable Referrals: Alaina Wynne MD [Primary Care Provider] - 1-2 days
[2016-10-29] MEDS ORDERED: PNEUMONIA PROTOCOL UTILIZED 1 EACH MISC PO PRN (18:48)
[2016-10-29] MEDS: lamoTRIgine 100 MG TAB PO SCH (22:51)
[2016-10-29] MEDS: buPROPion XL 300 MG TAB.ER.24H PO SCH (22:51)
[2016-10-29] MEDS: QUEtiapine 200 MG TAB PO SCH (22:51)
[2016-10-29] MEDS: HYDROcodone/APAP 10-325MG 1 EACH TAB PO PRN (23:25)
[2016-10-29] MEDS: clonazePAM 1 MG TAB PO SCH (23:27)
[2016-10-30] MEDS: PIPERACILLIN-TAZOBACTAM 3.375 GM in DEXTROSE/WATER 1 50ML.BAG IVPB SCH ×4 (00:21→23:59)
[2016-10-30] MEDS ORDERED: TEMAZEPAM 7.5 MG CAP PO PRN (00:46)
[2016-10-30] MEDS: HEPARIN SODIUM,PORCINE 5,000 UNIT/ML 1 ML VIAL SQ SCH ×3 (02:10→20:09)
[2016-10-30] MEDS: ACETAMINOPHEN TAB 325 MG TAB PO PRN ×2 (02:26→20:24)
[2016-10-30] MEDS: METOPROLOL SUCCINATE (ER) 50 MG TAB.ER.24H PO SCH (08:18)
[2016-10-30] MEDS: LISINOPRIL 20 MG TAB PO SCH (08:18)
[2016-10-30] MEDS: ATORVASTATIN 20 MG TAB PO SCH (08:18)
[2016-10-30] MEDS: lamoTRIgine 100 MG TAB PO SCH ×2 (08:19→20:09)
[2016-10-30] MEDS: PANTOPRAZOLE 40 MG TABLET PO SCH (08:19)
[2016-10-30] MEDS: DESVENLAFAXINE SUCCINATE 50 MG TAB.ER.24H PO SCH (08:19)
[2016-10-30] MEDS: clonazePAM 1 MG TAB PO SCH ×2 (08:19→20:09)
[2016-10-30] MEDS: HYDROcodone/APAP 10-325MG 1 EACH TAB PO PRN ×2 (08:19→15:22)
--- NOTE | 2016-10-30 08:27 | XR ---
EXAMINATION TYPE: XR chest 2V DATE OF EXAM: 10/30/2016 COMPARISON: Prior chest x-ray 07/23/2016 HISTORY: Pneumonia TECHNIQUE: Frontal and lateral views of the chest are obtained. FINDINGS: There is no focal air space opacity, pleural effusion, or pneumothorax seen. The cardiac silhouette size is stable. Interstitium is improved. The osseous structures are intact. IMPRESSION: Improvement in patient's volume status.
[2016-10-30] MEDS: LEVALBUTEROL NEB (CONC) 1.25 MG/0.5 ML AMP INHALATION SCH ×3 (08:56→19:11)
[2016-10-30] MEDS: IPRATROPIUM 0.5 MG/2.5 ML NEBU INHALATION SCH ×3 (08:56→19:11)
[2016-10-30 09:27] LABS: ALT 32 U/L (21-72); AST 17 U/L (17-59); Alkaline Phosphatase 148 U/L (38-126); Anion Gap 9 mmol/L; Blood Urea Nitrogen 14 mg/dL (9-20); Calcium 8.4 mg/dL (8.4-10.2); Carbon Dioxide 28 mmol/L (22-30); Chloride 102 mmol/L (98-107); Glucose 121 mg/dL (74-99); Non-African American GFR(MDRD) >60 (>60 ml/min/1.73 sqM); Sodium 139 mmol/L (137-145); Total Bilirubin 0.3 mg/dL (0.2-1.3); Total Protein 5.6 g/dL (6.3-8.2)
[2016-10-30 11:24] VITALS: BMI 26.9
[2016-10-30 14:04] LABS: CH 29.8; CHCM 32.4; HCT 34.3 % (39.0-53.0); HDW 2.92; HGB 11.2 gm/dL (13.0-17.5); Immature Gran Flag Slight; MCH 30.2 pg (25.0-35.0); MCHC 32.6 g/dL (31.0-37.0); MCV 92.5 fL (80.0-100.0); Mean Platelet Volume 8.7; RBC 3.71 m/uL (4.30-5.90); RDW 13.9 % (11.5-15.5); WBC 4.5 k/uL (3.8-10.6); WBC (Perox) 4.58
[2016-10-30 14:50] LABS: Add Differential Manual Differential
[2016-10-30 14:56] LABS: Band Neutrophils % 1.5 %; Manual Review Performed; Myelocytes % 0.5 %; Nucleated Red Blood Cells 0 /100 WBC (0-0); Total Cells Counted 200
[2016-10-30 14:57] LABS: Toxic Vacuolation Present
--- NOTE | 2016-10-30 15:41 | HP ---
CHIEF COMPLAINT: Cough, sputum chills and pneumonia. HISTORY OF PRESENT ILLNESS: This 51-year-old gentleman with past medical history of multiple medical problems including hernia surgery, history of hypertension, hyperlipidemia, seizure disorder, being followed by Dr. Alaina Wynne in the outpatient setting was admitted to [facility] referred from Hospital for pneumonia. The patient was found to have pneumonia in the CT scan. The patient went home but because of recurrence of fever and other symptoms the patient was referred to [facility] and admitted for further evaluation and treatment. The patient was also on Bactrim for recurrent MRSA. There is no history of any headache, loss of consciousness or seizures, chest pain, palpitations at this time. PAST MEDICAL HISTORY: History of hernia, ventral hernia surgery, history of GERD, hyperlipidemia, hypertension, history of pneumonia, history of seizure disorder. Medications prior to admission include home medications: 1. Ultram 100 mg p.o. q.6. 2. Lamictal 200 mg p.o. b.i.d. 3. Klonopin 1 mg p.o. b.i.d. 4. Wellbutrin 300 mg q.h.s. 5. Bactrim DS 1 p.o. daily. 6. Seroquel 600 mg p.o. q.h.s. 7. Omeprazole 40 mg with breakfast. 8. Singulair 10 mg p.o. q.h.s. 9. Serotonin 20 mg p.o. b.i.d. 10. Antivert 25 mg p.o. t.i.d. 11. Claritin D 24 p.o. daily. 12. Zestril 20 mg daily. 13. Hydrocodone 1 tablet p.o. t.i.d. p.r.n. 14. Pristiq ER 50 mg daily. 15. ( ) 4.5 2 puffs b.i.d. 16. Lipitor 20 mg p.o. daily. 17. Ecotrin 81 mg p.o. daily. 18. Albuterol 2.5 q.4 p.r.n. ALLERGIES: None. FAMILY HISTORY: Cancer and lymphoma. SOCIAL HISTORY: History of THC and history of smoking. REVIEW OF SYSTEMS: ENT: No diminished hearing or vision. CARDIOVASCULAR: No angina. RESPIRATORY: As mentioned earlier. GI: As mentioned earlier. : No dysuria. NERVOUS SYSTEM: No numbness or weakness. ALLERGY/IMMUNOLOGY: No asthma. MUSCULOSKELETAL: As mentioned earlier. HEMATOLOGY/ONCOLOGY: No history of anemia. ENDOCRINE: No history of diabetes or hypothyroidism. CONSTITUTIONAL: As mentioned earlier. DERMATOLOGY: Negative. RHEUMATOLOGY: Negative. PSYCHIATRY: As mentioned earlier. PHYSICAL EXAMINATION: The patient is alert and oriented x3. Pulse is 72, blood pressure 120/64, respirations 16, temperature 98.7, pulse ox 100% on 2-L. HEENT: Conjunctivae normal. Oral mucosa moist. NECK: No jugular venous distention. No carotid bruit. No lymph node enlargement. CARDIOVASCULAR: S1, S2 muffled. No S3 or S4. RESPIRATORY: Breath sounds diminished at the bases. Bilateral scattered rhonchi and expiratory wheeze and crackles. ABDOMEN: Soft, status post recent surgery of ventral hernia. Healed scar present noted. No mass palpable. No guarding, no rigidity. LEGS: No edema, no swelling. NERVOUS SYSTEM: Higher function as mentioned. Moves all four limbs. No focal motor sensory deficits. LYMPHATICS: No lymphadenopathy in the neck, axillae or groin. SKIN: No rash, ulcer or bleeding. Labs are not available at this time. ASSESSMENT: 1. Acute right lobe pneumonia possibly community acquired, possibly Gram- negative. 2. History of recent ventral hernia repair. 3. History of gastroesophageal reflux disease. 4. Hypertension. 5. Hyperlipidemia. 6. History of seizure disorder. 7. History of sleep apnea. 8. History of MRSA. 9. History of adenoidectomy. 10. Lap band and removal. RECOMMENDATIONS AND DISCUSSION: In this 51-year-old gentleman who presented with multiple complex medical issues, we well monitor the patient closely. Broad -spectrum IV antibiotics have been initiated aiming at broad spectrum coverage. Otherwise I will also get evaluation by Dr. Jj. Bronchodilators. Resume the home medications. DVT prophylaxis. Guarded prognosis because of the multiple complex medical issues. Further recommendations to follow. Will repeat labs as well. Otherwise prognosis guarded. further recommendations to follow. Discussed with patient who understands. IVISD
--- NOTE | 2016-10-30 16:48 | P.CNPUL ---
History of Present Illness Consult date: 10/30/16 Requesting physician: Mame Carballo Reason for consult: dyspnea, abnormal CXR/CT Chief complaint: Shortness of breath, cough, congestion History of present illness: This is a very pleasant 51-year-old gentleman who follows with Dr. Alaina Wynne as his primary care physician. 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 Since that time he states he has had frequent pneumonias and bronchitis episodes. Has has a previous smoking history, marijuana use and cocaine abuse. He had presented to [facility] after developing worsening shortness of breath cough and congestion. He had been on antibiotics in the outpatient setting without significant improvement. He was found to have a pneumonia on his computed tomography scan and was transferred here for the same. The patient is seen today in consultation on the regular medical floor. He is awake and alert in no acute distress. Today's chest x- ray does not show any significant areas of density/consolidation/atelectasis. The computed tomography scan from [place] did show a small area of patchy density in the posterior aspect of the right lower lobe. He is maintaining good O2 saturations in the low 90s on room air. He has been having issues with chills and night sweats. His current temperature is 101.5. No leukocytosis. He's been hemodynamically stable. He remains on Zosyn and Levaquin. Review of Systems 14 point review of system was conducted on the negative other than as mentioned in HPI. Past Medical History Past Medical History: GERD/Reflux, Hyperlipidemia, Hypertension, Musculoskeletal Disorder, Pneumonia, Respiratory Disorder, Seizure Disorder, Skin Disorder, Sleep Apnea/CPAP/BIPAP, Thyroid Disorder Additional Past Medical History / Comment(s): HX ABSCESSES LEGS with MRSA, CELLULTIS. HX SEIZURE X2, 2011, BIT PART OF TONGUE OFF. NOT ABLE TO USE BIPAP. OLD FX BACK, 2002. HX MRSA Neck/Face/RT THIGH/LT CALF. ENLARGED HEART. CHRONIC BRONCHITIS.occ constipation, "past compression fx l1" History of Any Multi-Drug Resistant Organisms: MRSA Date of last positivie culture/infection: 03/07/16 MDRO Source:: LEFT LEG Past Surgical History: Adenoidectomy, Appendectomy, Cholecystectomy, Heart Catheterization, Hernia Repair, Tonsillectomy Additional Past Surgical History / Comment(s): ABD HERNIA SURG X3; LAP BAND 2010 EST. 06-15-14 LAP REMOVAL OF LAP BAND AND PORT. COLONOSCOPY, EGD. EXC Areas of MRSA on face, neck, LEGS 2016. VENTRAL HERNIA REPAIR 07/2016, egd w/ bx Past Anesthesia/Blood Transfusion Reactions: Previous Problems w/ Anesthesia Additional Past Anesthesia/Blood Transfusion Reaction / Comment(s): 1984 DURING T&A SURG, DEVELOPED FLUID IN LUNGS, PUT ON VENT. Past Psychological History: ADD/ADHD, Anxiety, Bipolar, Depression, Panic Disorder Additional Psychological History / Comment(s): pt lives with his in a single story home that has 3 steps to enter. no pets. has a nebulizer and bipap. no outside services. 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 Smoking Status: Former smoker Past Alcohol Use History: None Reported Additional Past Alcohol Use History / Comment(s): HX SMOKING OFF/ON SINCE AGE 12 , UP TO 1 PPD, QUIT JUNE 2016 Past Drug Use History: Cocaine, Marijuana Additional Drug Use History / Comment(s): USING MEDICAL MARIJUANA, DAILY. (PT STATED WENT TO REHAB IN 1998 D/T USE OF COCAINE/CRACK). INSTRUCTED NO MARIJUANA USE TODAY - Past Family History Mother Family Medical History: No Reported History Additional Family Medical History / Comment(s): PT STATED MOM IS HEALTHY Father Family Medical History: Cancer Additional Family Medical History / Comment(s): LYMPHOMA Medications and Allergies Home Medications Medication Instructions Recorded Confirmed Type lamoTRIgine [LaMICtal] 200 mg PO BID 04/21/15 10/29/16 History Desvenlafaxine Succinate [Pristiq 50 mg PO DAILY 03/06/16 10/29/16 History ER] Lisinopril [Zestril] 20 mg PO DAILY 03/06/16 10/29/16 History Methylphenidate HCl [Ritalin] 20 mg PO BID 03/06/16 10/29/16 History QUEtiapine FUMARATE [SEROquel] 600 mg PO HS 03/06/16 10/29/16 History clonazePAM [KlonoPIN] 1 mg PO BID 03/06/16 10/29/16 History buPROPion HCL [Wellbutrin XL] 300 mg PO HS 07/16/16 10/29/16 History Atorvastatin Calcium [Lipitor] 20 mg PO DAILY 09/19/16 10/29/16 History Hydrocodone/Acetaminophen 1 tab PO TID PRN 09/19/16 10/29/16 History [Hydrocodon-Acetaminophn 10-325] traMADol HCL [Ultram] 100 mg PO Q6HR PRN 09/19/16 10/29/16 History Albuterol Inhaler [Ventolin Hfa 2 puff INHALATION RT-Q4H PRN 10/29/16 10/29/16 History Inhaler] Albuterol Nebulized [Ventolin 2.5 mg INHALATION RT-Q6H PRN 10/29/16 10/29/16 History Nebulized] Aspirin EC [Ecotrin Low Dose] 81 mg PO DAILY 10/29/16 10/29/16 History Budesonide-Formot 160-4.5 Mcg 2 puff INHALATION RT-BID 10/29/16 10/29/16 History [Symbicort 160-4.5 Mcg Inhaler] Loratadine-Pseudoeph 10-240 mg 1 tab PO DAILY 10/29/16 10/29/16 History [Claritin-D 24 Hr] Meclizine [Antivert] 25 mg PO TID PRN 10/29/16 10/29/16 History Montelukast Sodium [Singulair] 10 mg PO QAM 10/29/16 10/29/16 History Omeprazole 40 mg PO AC-BRKFST 10/29/16 10/29/16 History Sulfamethox-Tmp 800-160Mg [Bactrim 1 tab PO DAILY 10/29/16 10/29/16 History DS 800-160 mg] Allergies Allergy/AdvReac Type Severity Reaction Status Date / Time No Known Allergies Allergy Verified 09/19/16 13:22 Physical Exam Vitals: Vital Signs Temp Pulse Pulse Resp BP BP Pulse Ox 10/30/16 15:49 92 L 10/30/16 15:00 101.5 F H 80 19 110/68 92 L 10/30/16 13:13 78 10/30/16 13:01 76 10/30/16 09:10 74 10/30/16 09:00 70 20 10/30/16 07:00 98.8 F 78 20 110/69 93 L 10/30/16 02:29 99.1 F 10/29/16 23:00 100.4 F H 83 20 116/72 96 10/29/16 21:11 98.7 F 72 16 120/65 100 10/29/16 20:00 70 16 91/56 97 10/29/16 18:15 98.8 F 72 16 114/69 96 Intake and Output 10/30/16 10/30/16 10/30/16 06:59 14:59 22:59 Intake Total 100 Balance 100 Intake: Oral 100 Other: Voiding Method Toilet Toilet # Voids 2 Weight 87.543 kg Patient Weight 10/31/16 06:59 Weight 87.543 kg GENERAL EXAM: Alert, active, comfortable in no apparent distress. HEAD: Normocephalic. EYES: Normal reaction of pupils, equal size. NOSE: Clear with pink turbinates. THROAT: No erythema or exudates. NECK: No masses, no JVD. CHEST: No chest wall deformity. LUNGS: Equal air entry with few scattered rhonchi, end expiratory wheeze.. CVS: S1 and S2 normal with no audible mumurs, regular rhythm. ABDOMEN: No hepatosplenomegaly, normal bowel sounds, no guarding or rigidity. SPINE: No scoliosis or deformity SKIN: No rashes CENTRAL NERVOUS SYSTEM: No focal deficits, tone is normal in all 4 extremities. Extremities: There is no significant peripheral edema. No clubbing, no cyanosis. Peripheral pulses are intact. Results - Laboratory Findings CBC and BMP: 10/30/16 08:37 10/30/16 08:37 Abnormal lab findings: Abnormal Labs 10/30/16 10/30/16 08:37 08:37 RBC 3.71 L Hgb 11.2 L Hct 34.3 L Lymphocytes # (Manual) 0.7 L Glucose 121 H Alkaline Phosphatase 148 H Total Protein 5.6 L Albumin 3.0 L - Diagnostic Findings Chest x-ray: image reviewed Assessment and Plan Plan: Impression: #1 Acute right lung pneumonia noted on computed tomography scan of the chest from outside facility. #2 Febrile illness secondary to above. #3 Chronic and ongoing tobacco dependence. #4 Marijuana use. #5 History of cocaine use. #6 History of ADHD. #7 History of bipolar disorder. #8 History of panic disorder. #9 History of ventilatory dependence following a tonsillectomy. #10 Hyperlipidemia. #11 Hypertension. #12 Attention deficit disorder. Plan: The patient was seen and evaluated by Dr. Jj. His chest x-ray and labs were reviewed. We'll continue with his current medications including antibiotics in the form of Zosyn and Levaquin. Continue bronchodilators. Continue his home medications. He is on heparin for DVT prophylaxis. We'll continue to follow and make further recommendations based on his clinical status. Time with Patient: Greater than 30
--- NOTE | 2016-10-30 18:35 | P.PN ---
Subjective Date of service 10/30/2016. Personal being dictated for Dr. Carballo. Interval history: This is a 51-year-old gentleman admitted with acute right lobe pneumonia, recent ventral hernia repair and multiple other medical issues. Maintained on Levaquin and Zosyn, states breathing slowly improving. T-max 101.5, normal WBC. Chest x-ray reports improvement in volume status. Denies chest pain, palpitations. Objective - Vital Signs Vital signs: Vital Signs Temp 101.5 F H 10/30/16 15:00 Pulse 80 10/30/16 15:00 Resp 19 10/30/16 15:00 BP 110/68 10/30/16 15:00 Pulse Ox 92 L 10/30/16 15:49 Intake & Output 10/29/16 10/30/16 10/30/16 18:59 06:59 18:59 Intake Total 1000 Balance 1000 Weight 87.543 kg 87.543 kg Intake: Amount of Fluid Infused ( 500 ml) Oral 500 Other: Voiding Method Toilet # Voids 2 - Exam PHYSICAL EXAM: VITAL SIGNS: As above GENERAL: [Sitting up at side of bed, no acute distress] HEENT: [Pupils equal conjunctiva normal.] NECK: [Supple, no JVD] RESPIRATORY EFFORT:[ Normal] LUNGS: [Bilateral bases diminished, scattered rhonchi, expiratory wheezing , no crackles] CARDIOVASCULAR[ regular S1 and S2, no murmurs rubs or gallops, no edema] GI: [Abdomen soft, status post recent ventral hernia repair, no guarding, no rigidity, positive bowel sounds.] PSYCH: [Alert and oriented -3, mood and affect normal.] NEURO: No focal deficits, moves all 4 extremities, strength and sensation grossly intact - Labs CBC & Chem 7: 10/30/16 08:37 10/30/16 08:37 Labs: Abnormal Lab Results - Last 24 Hours (Table) 10/30/16 10/30/16 Range/Units 08:37 08:37 RBC 3.71 L (4.30-5.90) m/uL Hgb 11.2 L (13.0-17.5) gm/dL Hct 34.3 L (39.0-53.0) % Lymphocytes # (Manual) 0.7 L (1.0-4.8) k/uL Glucose 121 H (74-99) mg/dL Alkaline Phosphatase 148 H (38-126) U/L Total Protein 5.6 L (6.3-8.2) g/dL Albumin 3.0 L (3.5-5.0) g/dL Assessment and Plan Plan: 1. Acute right lobe pneumonia, possibly community-acquired, possibly gram- negative. 2. [ Recent ventral hernia repair]. 3. [ Gastroesophageal reflux disease]. 4. [ Hypertension]. 5. [ Hyperlipidemia]. 6. [ History of seizure disorder]. 7. [] Sleep apnea. 8. History of MRSA 9. LAP-BAND and removal 10. Nicotine dependence 11. History of cocaine use 12. Marijuana use 13. History of bipolar disorder Plan: Continue on current medication regime , nebulized bronchodilators, antibiotics, monitoring and symptomatic treatment. Patient instructed to increase ambulation as tolerated with assist. States he sometimes uses a walker at night at home. PT/OT consulted. Smoking cessation readdressed. Follow closely with pulmonary. Further recommendations to follow. The impression and plan of care has been dictated as directed. : I performed a H&P examination of this patient and discussed the same with the dictator. I agree with the dictator's note. Any additional findings/opinions/ etc. will be noted.
[2016-10-30] MEDS ORDERED: LEVOFLOXACIN 750MG-D5W PMX 750 MG in DEXTROSE/WATER 1 150ML.BAG IVPB SCH (20:00)
[2016-10-30] MEDS: QUEtiapine 200 MG TAB PO SCH (20:09)
[2016-10-30] MEDS: buPROPion XL 300 MG TAB.ER.24H PO SCH (20:09)
[2016-10-31] MEDS: IPRATROPIUM 0.5 MG/2.5 ML NEBU INHALATION SCH ×3 (07:39→20:07)
[2016-10-31] MEDS: LEVALBUTEROL NEB (CONC) 1.25 MG/0.5 ML AMP INHALATION SCH ×2 (07:39→12:58)
[2016-10-31] MEDS: HYDROcodone/APAP 10-325MG 1 EACH TAB PO PRN ×4 (08:57→21:04)
[2016-10-31] MEDS: PIPERACILLIN-TAZOBACTAM 3.375 GM in DEXTROSE/WATER 1 50ML.BAG IVPB SCH ×3 (08:58→23:20)
[2016-10-31] MEDS: clonazePAM 1 MG TAB PO SCH ×2 (08:58→20:58)
[2016-10-31] MEDS: HEPARIN SODIUM,PORCINE 5,000 UNIT/ML 1 ML VIAL SQ SCH ×2 (08:58→20:58)
[2016-10-31] MEDS: ACETAMINOPHEN TAB 325 MG TAB PO PRN (08:58)
[2016-10-31] MEDS: lamoTRIgine 100 MG TAB PO SCH ×2 (08:59→20:58)
[2016-10-31] MEDS: ATORVASTATIN 20 MG TAB PO SCH (08:59)
[2016-10-31] MEDS: PANTOPRAZOLE 40 MG TABLET PO SCH (08:59)
[2016-10-31] MEDS: LISINOPRIL 20 MG TAB PO SCH (08:59)
[2016-10-31] MEDS: DESVENLAFAXINE SUCCINATE 50 MG TAB.ER.24H PO SCH (08:59)
[2016-10-31] MEDS: METOPROLOL SUCCINATE (ER) 50 MG TAB.ER.24H PO SCH (09:00)
[2016-10-31 09:48] LABS: Basophils % (A) 0 %; CHCM 33.6; Eosinophils % (A) 0 %; HCT 33.6 % (39.0-53.0); HDW 2.95; HGB 11.2 gm/dL (13.0-17.5); Luc # (Auto) 0.11; Luc % (Auto) 2; Lymphocytes # (A) 0.7 k/uL (1.0-4.8); Lymphocytes % (A) 16 %; MCH 29.9 pg (25.0-35.0); MCHC 33.4 g/dL (31.0-37.0); MCV 89.5 fL (80.0-100.0); Mean Platelet Volume 8.1; Monocytes # (A) 0.3 k/uL (0-1.0); Monocytes % (A) 7 %; Neutrophils # (A) 3.3 k/uL (1.3-7.7); Neutrophils % (A) 74 %; RBC 3.75 m/uL (4.30-5.90); WBC 4.4 k/uL (3.8-10.6); WBC (Perox) 4.32
[2016-10-31 10:40] LABS: Anion Gap 10 mmol/L; Blood Urea Nitrogen 12 mg/dL (9-20); Calcium 8.4 mg/dL (8.4-10.2); Carbon Dioxide 26 mmol/L (22-30); Chloride 99 mmol/L (98-107); Glucose 117 mg/dL (74-99); Non-African American GFR(MDRD) 58 (>60 ml/min/1.73 sqM); Potassium 3.9 mmol/L (3.5-5.1); Sodium 135 mmol/L (137-145)
--- NOTE | 2016-10-31 13:39 | P.PN ---
Subjective This is a very pleasant 51-year-old gentleman who follows with Dr. Alaina Wynne as his primary care physician. 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 Since that time he states he has had frequent pneumonias and bronchitis episodes. Has has a previous smoking history, marijuana use and cocaine abuse. He had presented to [facility] after developing worsening shortness of breath cough and congestion. He had been on antibiotics in the outpatient setting without significant improvement. He was found to have a pneumonia on his computed tomography scan and was transferred here for the same. The patient is seen today in consultation on the regular medical floor. He is awake and alert in no acute distress. Today's chest x- ray does not show any significant areas of density/consolidation/atelectasis. The computed tomography scan from [place] did show a small area of patchy density in the posterior aspect of the right lower lobe. He is maintaining good O2 saturations in the low 90s on room air. He has been having issues with chills and night sweats. His current temperature is 101.5. No leukocytosis. He's been hemodynamically stable. He remains on Zosyn and Levaquin. The patient is seen again today 10/31/2016 in follow-up on the regular medical floor. He is awake and alert in no acute distress. He is still having ongoing issues with fever. Currently 101.1. No leukocytosis. Sputum thus far has preliminary yeast. He remains on Levaquin and Zosyn. His breathing is easier today as compared to yesterday. Objective - Vital Signs Vital signs: Vital Signs Temp 101.1 F H 10/31/16 10:49 Pulse 74 10/31/16 13:09 Resp 14 10/31/16 07:00 BP 105/60 10/31/16 07:00 Pulse Ox 90 L 10/31/16 07:00 Intake & Output 10/30/16 10/31/16 10/31/16 18:59 06:59 18:59 Intake Total 400 Balance 400 Weight 87.543 kg Intake: Oral 400 Other: Voiding Method Toilet # Voids 2 2 - Exam GENERAL EXAM: Alert, active, comfortable in no apparent distress. HEAD: Normocephalic. EYES: Normal reaction of pupils, equal size. NOSE: Clear with pink turbinates. THROAT: No erythema or exudates. NECK: No masses, no JVD. CHEST: No chest wall deformity. LUNGS: Equal air entry with few scattered rhonchi, end expiratory wheeze.. CVS: S1 and S2 normal with no audible mumurs, regular rhythm. ABDOMEN: No hepatosplenomegaly, normal bowel sounds, no guarding or rigidity. SPINE: No scoliosis or deformity SKIN: No rashes CENTRAL NERVOUS SYSTEM: No focal deficits, tone is normal in all 4 extremities. Extremities: There is no significant peripheral edema. No clubbing, no cyanosis. Peripheral pulses are intact. - Labs CBC & Chem 7: 10/31/16 09:27 10/31/16 09:27 Labs: Abnormal Lab Results - Last 24 Hours (Table) 10/30/16 10/31/16 10/31/16 Range/Units 08:37 09:27 09:27 RBC 3.71 L 3.75 L (4.30-5.90) m/uL Hgb 11.2 L 11.2 L (13.0-17.5) gm/dL Hct 34.3 L 33.6 L (39.0-53.0) % Lymphocytes # 0.7 L (1.0-4.8) k/uL Lymphocytes # (Manual) 0.7 L (1.0-4.8) k/uL Sodium 135 L (137-145) mmol/L Creatinine 1.29 H (0.66-1.25) mg/dL Glucose 117 H (74-99) mg/dL Microbiology - Last 24 Hours (Table) 10/30/16 09:00 Gram Stain - Preliminary Sputum Sputum Culture - Preliminary Yeast species Assessment and Plan Plan: Impression: #1 Acute right lung pneumonia noted on computed tomography scan of the chest from outside facility. #2 Febrile illness secondary to above. #3 Chronic and ongoing tobacco dependence. #4 Marijuana use. #5 History of cocaine use. #6 History of ADHD. #7 History of bipolar disorder. #8 History of panic disorder. #9 History of ventilatory dependence following a tonsillectomy. #10 Hyperlipidemia. #11 Hypertension. #12 Attention deficit disorder. Plan: The patient was seen and evaluated by Dr. Jj. We will repeat his chest x- ray in the a.m. We'll continue with his current medications including antibiotics in the form of Zosyn and Levaquin. Continue bronchodilators. Continue his home medications. He is on heparin for DVT prophylaxis. We'll continue to follow and make further recommendations based on his clinical status.
[2016-10-31] MEDS: ALBUTEROL NEBULIZED 2.5 MG/3 ML INHALATION SCH ×2 (15:31→20:07)
[2016-10-31] MEDS: LEVOFLOXACIN 750 MG TAB PO SCH (17:53)
--- NOTE | 2016-10-31 18:17 | P.PN ---
Subjective Date of service 10/31/2016. Personal being dictated for Dr. Carballo. Interval history: This is a 51-year-old gentleman admitted with acute right lobe pneumonia, recent ventral hernia repair and multiple other medical issues. Possible abscess per abdominal CT from [facility], surgical consult in place, recommendations pending. Continues on Levaquin and Zosyn. T-max 102.6 , WBC normal, preliminary sputum culture reporting yeast species. States breathing improving. Objective - Vital Signs Vital signs: Vital Signs Temp 98.4 F 10/31/16 15:00 Pulse 83 10/31/16 15:00 Resp 16 10/31/16 15:00 BP 92/57 10/31/16 15:00 Pulse Ox 90 L 10/31/16 15:00 Intake & Output 10/30/16 10/31/16 10/31/16 18:59 06:59 18:59 Intake Total 400 Balance 400 Weight 87.543 kg Intake: Oral 400 Other: Voiding Method Toilet Toilet # Voids 2 2 3 - Exam PHYSICAL EXAM: VITAL SIGNS: As above GENERAL: [Sitting up in bed, no acute distress] HEENT: [Pupils equal conjunctiva normal.] NECK: [Supple, no JVD] RESPIRATORY EFFORT:[ Normal] LUNGS: [Bilateral bases diminished, scattered rhonchi, expiratory wheezing , no crackles] CARDIOVASCULAR[ regular S1 and S2, no murmurs rubs or gallops, no edema] GI: [Abdomen soft, status post recent ventral hernia repair, no guarding, no rigidity, positive bowel sounds.] PSYCH: [Alert and oriented -3, mood and affect normal.] NEURO: No focal deficits, moves all 4 extremities, strength and sensation grossly intact Microbiology 10/30/16 09:00 Sputum Gram Stain - Preliminary 10/30/16 09:00 Sputum Sputum Culture - Preliminary Yeast species - Labs CBC & Chem 7: 10/31/16 09:27 10/31/16 09:27 Labs: Abnormal Lab Results - Last 24 Hours (Table) 10/31/16 10/31/16 Range/Units : 09:27 RBC 3.75 L (4.30-5.90) m/uL Hgb 11.2 L (13.0-17.5) gm/dL Hct 33.6 L (39.0-53.0) % Lymphocytes # 0.7 L (1.0-4.8) k/uL Sodium 135 L (137-145) mmol/L Creatinine 1.29 H (0.66-1.25) mg/dL Glucose 117 H (74-99) mg/dL Microbiology - Last 24 Hours (Table) 10/30/16 09:00 Gram Stain - Preliminary Sputum Sputum Culture - Preliminary Yeast species Assessment and Plan Plan: 1. Acute right lobe pneumonia, possibly community-acquired, possibly gram- negative. 2. [ Recent ventral hernia repair, possible abscess, [place] CT being reviewed by surgery. 3. [ Gastroesophageal reflux disease]. 4. [ Hypertension]. 5. [ Hyperlipidemia]. 6. [ History of seizure disorder]. 7. [] Sleep apnea. 8. History of MRSA 9. LAP-BAND and removal 10. Nicotine dependence 11. History of cocaine use 12. Marijuana use 13. History of bipolar disorder. Plan: Continue on current medication regime , nebulized bronchodilators, antibiotics, monitoring and symptomatic treatment. Aggressive pulmonary toileting. Patient instructed to increase ambulation as tolerated with assist. PT/OT. Smoking cessation readdressed. Further recommendations to follow. The impression and plan of care has been dictated as directed. : I performed a H&P examination of this patient and discussed the same with the dictator. I agree with the dictator's note. Any additional findings/opinions/ etc. will be noted.
[2016-10-31] MEDS: QUEtiapine 200 MG TAB PO SCH (20:58)
[2016-10-31] MEDS: buPROPion XL 300 MG TAB.ER.24H PO SCH (20:58)
[2016-11-01] MEDS: ALBUTEROL NEBULIZED 2.5 MG/3 ML INHALATION SCH ×4 (07:49→20:41)
[2016-11-01] MEDS: IPRATROPIUM 0.5 MG/2.5 ML NEBU INHALATION SCH ×3 (07:49→20:41)
[2016-11-01] MEDS: ACETAMINOPHEN TAB 325 MG TAB PO PRN (08:11)
[2016-11-01] MEDS: PANTOPRAZOLE 40 MG TABLET PO SCH (08:11)
[2016-11-01] MEDS: ATORVASTATIN 20 MG TAB PO SCH (08:11)
[2016-11-01] MEDS: PIPERACILLIN-TAZOBACTAM 3.375 GM in DEXTROSE/WATER 1 50ML.BAG IVPB SCH ×3 (08:11→23:17)
[2016-11-01] MEDS: HEPARIN SODIUM,PORCINE 5,000 UNIT/ML 1 ML VIAL SQ SCH ×2 (08:12→20:38)
[2016-11-01] MEDS: lamoTRIgine 100 MG TAB PO SCH ×2 (08:12→20:38)
[2016-11-01] MEDS: LISINOPRIL 20 MG TAB PO SCH (08:12)
[2016-11-01] MEDS: clonazePAM 1 MG TAB PO SCH ×2 (08:12→20:38)
[2016-11-01] MEDS: METOPROLOL SUCCINATE (ER) 50 MG TAB.ER.24H PO SCH (08:12)
[2016-11-01] MEDS: HYDROcodone/APAP 10-325MG 1 EACH TAB PO PRN ×4 (08:17→20:48)
[2016-11-01 08:26] LABS: Basophils % (A) 0 %; CH 29.9; CHCM 33.6; Eosinophils % (A) 1 %; HCT 33.3 % (39.0-53.0); HDW 3.06; HGB 11.3 gm/dL (13.0-17.5); Luc # (Auto) 0.09; Luc % (Auto) 3; Lymphocytes # (A) 0.7 k/uL (1.0-4.8); Lymphocytes % (A) 21 %; MCH 30.3 pg (25.0-35.0); MCHC 33.9 g/dL (31.0-37.0); MCV 89.3 fL (80.0-100.0); Mean Platelet Volume 7.8; Monocytes # (A) 0.3 k/uL (0-1.0); Monocytes % (A) 9 %; Neutrophils # (A) 2.3 k/uL (1.3-7.7); Neutrophils % (A) 66 %; RBC 3.73 m/uL (4.30-5.90); RDW 14.4 % (11.5-15.5); WBC 3.4 k/uL (3.8-10.6); WBC (Perox) 3.66
[2016-11-01 08:40] LABS: Anion Gap 10 mmol/L; Blood Urea Nitrogen 15 mg/dL (9-20); Calcium 8.4 mg/dL (8.4-10.2); Carbon Dioxide 24 mmol/L (22-30); Chloride 100 mmol/L (98-107); Glucose 92 mg/dL (74-99); Non-African American GFR(MDRD) >60 (>60 ml/min/1.73 sqM); Potassium 3.8 mmol/L (3.5-5.1); Sodium 134 mmol/L (137-145)
--- NOTE | 2016-11-01 08:55 | XR ---
EXAMINATION TYPE: XR chest 2V DATE OF EXAM: 11/01/2016 COMPARISON: Prior chest x-ray 10/30/2016 HISTORY: Pneumonia TECHNIQUE: Frontal and lateral views of the chest are obtained. FINDINGS: There is airspace disease present within possibly left lower lobe, right lower lobe. No pn eumothorax or pleural effusion. Cardiac mediastinal silhouette, pulmonary vascularity and brigitte are no t significantly changed. IMPRESSION: Findings compatible with pneumonia, follow-up recommended.
[2016-11-01] MEDS: DESVENLAFAXINE SUCCINATE 50 MG TAB.ER.24H PO SCH (11:42)
--- NOTE | 2016-11-01 13:10 | P.PN ---
Subjective This is a very pleasant 51-year-old gentleman who follows with Dr. Alaina Wynne as his primary care physician. 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 Since that time he states he has had frequent pneumonias and bronchitis episodes. Has has a previous smoking history, marijuana use and cocaine abuse. He had presented to [facility] after developing worsening shortness of breath cough and congestion. He had been on antibiotics in the outpatient setting without significant improvement. He was found to have a pneumonia on his computed tomography scan and was transferred here for the same. The patient is seen today in consultation on the regular medical floor. He is awake and alert in no acute distress. Today's chest x- ray does not show any significant areas of density/consolidation/atelectasis. The computed tomography scan from [place] did show a small area of patchy density in the posterior aspect of the right lower lobe. He is maintaining good O2 saturations in the low 90s on room air. He has been having issues with chills and night sweats. His current temperature is 101.5. No leukocytosis. He's been hemodynamically stable. He remains on Zosyn and Levaquin. The patient is seen again today 10/31/2016 in follow-up on the regular medical floor. He is awake and alert in no acute distress. He is still having ongoing issues with fever. Currently 101.1. No leukocytosis. Sputum thus far has preliminary yeast. He remains on Levaquin and Zosyn. His breathing is easier today as compared to yesterday. On 11/01/2016 the patient is being seen in follow-up on a medical floor. Still bronchospastic and wheezy. Has a congested cough. I would say there is only a modest improvement over the past 24 hours as the patient is still having bronchospasm, wheezing, chest congestion and tightness. No significant leukocytosis. The patient remains on bronchodilators, systemic steroids and broad-spectrum antibiotics. He is still on a combination of Zosyn and Levaquin. Objective - Vital Signs Vital signs: Vital Signs Temp 101.3 F H 11/01/16 07:00 Pulse 80 11/01/16 12:04 Resp 16 11/01/16 07:00 BP 96/65 11/01/16 07:00 Pulse Ox 92 L 11/01/16 07:51 Intake & Output 10/31/16 11/01/16 11/01/16 18:59 06:59 18:59 Weight 87.543 kg Other: Voiding Method Toilet # Voids 3 200 - Exam The patient appeared well nourished and normally developed. Vital signs as documented. Head exam is unremarkable. No scleral icterus or corneal arcus noted. Neck is without jugular venous distension, thyromegaly, or carotid bruits. Carotid upstrokes are brisk bilaterally. Lungs are are diminished breath sounds bilaterally along with prolongation of the expiratory phase of breathing and diffuse expiratory wheezes throughout the lung donovan bilaterally. Cardiac exam reveals the PMI to be normally sized and situated. Rhythm is regular. First and second heart sounds normal. No murmurs, rubs or gallops. Abdominal exam reveals normal bowel sounds, no masses, no organomegaly and no aortic enlargement. Extremities are nonedematous and both femoral and pedal pulses are normal. - Labs CBC & Chem 7: 11/01/16 08:06 11/01/16 08:06 Labs: Abnormal Lab Results - Last 24 Hours (Table) 11/01/16 11/01/16 Range/Units 08:06 08:06 WBC 3.4 L (3.8-10.6) k/uL RBC 3.73 L (4.30-5.90) m/uL Hgb 11.3 L (13.0-17.5) gm/dL Hct 33.3 L (39.0-53.0) % Lymphocytes # 0.7 L (1.0-4.8) k/uL Sodium 134 L (137-145) mmol/L Microbiology - Last 24 Hours (Table) 10/30/16 09:00 Gram Stain - Preliminary Sputum Sputum Culture - Preliminary Yeast species Assessment and Plan Plan: Impression: #1 acute COPD exacerbation secondary to a right lower lobe pneumonia as evident on the computed tomography scan of the chest that was done at time of admission. Remains symptomatic bronchospastic and wheezy with modest improvement over the past 24 hours despite and a combination of bronchodilators and antibiotics. #2 Febrile illness secondary to above. #3 Chronic and ongoing tobacco dependence. #4 Marijuana use. #5 History of cocaine use. #6 History of ADHD. #7 History of bipolar disorder. #8 History of panic disorder. #9 History of ventilatory dependence following a tonsillectomy. #10 Hyperlipidemia. #11 Hypertension. #12 Attention deficit disorder. Plan Continue same treatment. Reevaluate this patient's condition in a.m. Would anticipate some further improvement at least by tomorrow with ongoing treatment. No need for any adjustments at this point. Will add IV Solu-Medrol 60 mg every 6 hours over the next 24 hours that should help him at least with some of his bronchospasm and wheeze.
[2016-11-01] MEDS: methylPREDNISolone SOD SUCCI 125 MG/2 ML VIAL IV SCH ×3 (13:40→23:17)
[2016-11-01 17:11] LABS: Glucose,Whole Blood 159 mg/dL (75-99)
--- NOTE | 2016-11-01 17:55 | P.GSCN ---
History of Present Illness Consult date: 11/01/16 Reason for Consult: Abdominal pain History of present illness: 51 yrs old male transferred from [facility] with pneumonia. S/P open ventral hernia repair by Dr. Trejo in August 2016. He has central abdominal bulge and discomfort. No obstruction/no nausea or vomiting. Regular BM and tolerating regular diet. Past Medical History Past Medical History: GERD/Reflux, Hyperlipidemia, Hypertension, Musculoskeletal Disorder, Pneumonia, Respiratory Disorder, Seizure Disorder, Skin Disorder, Sleep Apnea/CPAP/BIPAP, Thyroid Disorder Additional Past Medical History / Comment(s): HX ABSCESSES LEGS with MRSA, CELLULTIS. HX SEIZURE X2, 2011, BIT PART OF TONGUE OFF. NOT ABLE TO USE BIPAP. OLD FX BACK, 2002. HX MRSA Neck/Face/RT THIGH/LT CALF. ENLARGED HEART. CHRONIC BRONCHITIS.occ constipation, "past compression fx l1" History of Any Multi-Drug Resistant Organisms: MRSA Year Discovered:: 03/07/16 MDRO Source:: LEFT LEG Past Surgical History: Adenoidectomy, Appendectomy, Cholecystectomy, Heart Catheterization, Hernia Repair, Tonsillectomy Additional Past Surgical History / Comment(s): ABD HERNIA SURG X3; LAP BAND 2009 EST. 06-15-14 LAP REMOVAL OF LAP BAND AND PORT. COLONOSCOPY, EGD. EXC Areas of MRSA on face, neck, LEGS 2015. VENTRAL HERNIA REPAIR 07/2016, egd w/ bx Past Anesthesia/Blood Transfusion Reactions: Previous Problems w/ Anesthesia Additional Past Anesthesia/Blood Transfusion Reaction / Comm: 1984 DURING T&A SURG, DEVELOPED FLUID IN LUNGS, PUT ON VENT. Past Psychological History: ADD/ADHD, Anxiety, Bipolar, Depression, Panic Disorder Additional Psychological History / Comment(s): pt lives with his in a single story home that has 3 steps to enter. no pets. has a nebulizer and bipap. no outside services. 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 Smoking Status: Former smoker Past Alcohol Use History: None Reported Additional Past Alcohol Use History / Comment(s): HX SMOKING OFF/ON SINCE AGE 12 , UP TO 1 PPD, QUIT JUNE 2016 Past Drug Use History: Cocaine, Marijuana Additional Drug Use History / Comment(s): USING MEDICAL MARIJUANA, DAILY. (PT STATED WENT TO REHAB IN 1998 D/T USE OF COCAINE/CRACK). INSTRUCTED NO MARIJUANA USE TODAY - Past Family History Mother Family Medical History: No Reported History Additional Family Medical History / Comment(s): PT STATED MOM IS HEALTHY Father Family Medical History: Cancer Additional Family Medical History / Comment(s): LYMPHOMA Medications and Allergies Home Medications Medication Instructions Recorded Confirmed Type lamoTRIgine [LaMICtal] 200 mg PO BID 04/21/15 10/29/16 History Desvenlafaxine Succinate [Pristiq 50 mg PO DAILY 03/06/16 10/29/16 History ER] Lisinopril [Zestril] 20 mg PO DAILY 03/06/16 10/29/16 History Methylphenidate HCl [Ritalin] 20 mg PO BID 03/06/16 10/29/16 History QUEtiapine FUMARATE [SEROquel] 600 mg PO HS 03/06/16 10/29/16 History clonazePAM [KlonoPIN] 1 mg PO BID 03/06/16 10/29/16 History buPROPion HCL [Wellbutrin XL] 300 mg PO HS 07/16/16 10/29/16 History Atorvastatin Calcium [Lipitor] 20 mg PO DAILY 09/19/16 10/29/16 History Hydrocodone/Acetaminophen 1 tab PO TID PRN 09/19/16 10/29/16 History [Hydrocodon-Acetaminophn 10-325] traMADol HCL [Ultram] 100 mg PO Q6HR PRN 09/19/16 10/29/16 History Albuterol Inhaler [Ventolin Hfa 2 puff INHALATION RT-Q4H PRN 10/29/16 10/29/16 History Inhaler] Albuterol Nebulized [Ventolin 2.5 mg INHALATION RT-Q6H PRN 10/29/16 10/29/16 History Nebulized] Aspirin EC [Ecotrin Low Dose] 81 mg PO DAILY 10/29/16 10/29/16 History Budesonide-Formot 160-4.5 Mcg 2 puff INHALATION RT-BID 10/29/16 10/29/16 History [Symbicort 160-4.5 Mcg Inhaler] Loratadine-Pseudoeph 10-240 mg 1 tab PO DAILY 10/29/16 10/29/16 History [Claritin-D 24 Hour] Meclizine [Antivert] 25 mg PO TID PRN 10/29/16 10/29/16 History Montelukast Sodium [Singulair] 10 mg PO QAM 10/29/16 10/29/16 History Omeprazole 40 mg PO AC-BRKFST 10/29/16 10/29/16 History Allergies Allergy/AdvReac Type Severity Reaction Status Date / Time No Known Allergies Allergy Verified 09/19/16 13:22 Surgical - Exam Vital Signs Temp Pulse Resp BP Pulse Ox 98.8 F 72 16 114/69 96 10/29/16 18:15 10/29/16 18:15 10/29/16 18:15 10/29/16 18:15 10/29/16 18:15 General: Patient is alert and oriented to time, place and person and cooperative with exam. He is not in acute distress. HEENT: No pallor, no icterus, no thyroid enlargement, no cervical lymphadenopathy. Chest: Bilateral equal breath sounds present. Cardiovascular: Regular rate and rhythm. Abdomen: Soft, nontender, nondistended. There is an obvious bulge beneath the anterior midline incision consistent with seroma. The overlying skin is intact. There is no overlying cellulitis Integumentary: No active ulcers or discharge. Neurologic: Cranial nerves II-XII intact. Strength upper and lower extremities 5/5. No focal neurologic deficits. Gait is normal. Psychiatric: No anxiety or psychosis. Results - Labs 11/02/16 08:34 11/02/16 08:34 Abnormal Lab Results - Last 24 Hours (Table) 11/01/16 11/01/16 11/01/16 Range/Units 08:06 08:06 17:05 WBC 3.4 L (3.8-10.6) k/uL RBC 3.73 L (4.30-5.90) m/uL Hgb 11.3 L (13.0-17.5) gm/dL Hct 33.3 L (39.0-53.0) % Lymphocytes # 0.7 L (1.0-4.8) k/uL Sodium 134 L (137-145) mmol/L POC Glucose (mg/dL) 159 H (75-99) mg/dL Microbiology - Last 24 Hours (Table) 10/30/16 09:00 Gram Stain - Final Sputum Sputum Culture - Final Nichelle tropicalis Diabetes panel 11/01/16 Range/Units 08:06 Sodium 134 L (137-145) mmol/L Potassium 3.8 (3.5-5.1) mmol/L Chloride 100 (98-107) mmol/L Carbon Dioxide 24 (22-30) mmol/L BUN 15 (9-20) mg/dL Creatinine 1.22 (0.66-1.25) mg/dL Glucose 92 (74-99) mg/dL Calcium 8.4 (8.4-10.2) mg/dL Calcium panel 11/01/16 Range/Units 08:06 Calcium 8.4 (8.4-10.2) mg/dL Pituitary panel 11/01/16 Range/Units 08:06 Sodium 134 L (137-145) mmol/L Potassium 3.8 (3.5-5.1) mmol/L Chloride 100 (98-107) mmol/L Carbon Dioxide 24 (22-30) mmol/L BUN 15 (9-20) mg/dL Creatinine 1.22 (0.66-1.25) mg/dL Glucose 92 (74-99) mg/dL Calcium 8.4 (8.4-10.2) mg/dL Adrenal panel 11/01/16 Range/Units 08:06 Sodium 134 L (137-145) mmol/L Potassium 3.8 (3.5-5.1) mmol/L Chloride 100 (98-107) mmol/L Carbon Dioxide 24 (22-30) mmol/L BUN 15 (9-20) mg/dL Creatinine 1.22 (0.66-1.25) mg/dL Glucose 92 (74-99) mg/dL Calcium 8.4 (8.4-10.2) mg/dL - Imaging CT scan - abdomen: other (CT abd/pelvis reviwed from [facility]. Complex fluid collection anterior abdominal wall, likely seroma. No air fluid levels, unlikely abscess) Assessment and Plan (1) Seroma Status: Acute Plan: 1. 51 yrs old male with pneumonia and expected post op seroma/old hematoma after large ventral hernia repair 2. Treat pneumonia - on IV abx 3. There is no recurrent hernia. 4. Conservative management- watchful waiting of the seroma 5. Patient to follow up with Dr. Trejo as outpatient. If persistent , may consider aspiration under ultrasound guidance as outpatient.
[2016-11-01] MEDS: LEVOFLOXACIN 750 MG TAB PO SCH (18:01)
[2016-11-01] MEDS: QUEtiapine 200 MG TAB PO SCH (20:39)
[2016-11-01] MEDS: buPROPion XL 300 MG TAB.ER.24H PO SCH (20:39)
[2016-11-01 20:49] LABS: Glucose,Whole Blood 224 mg/dL (75-99)
[2016-11-01] MEDS: INSULIN LISPRO (humaLOG) 300 UNIT/3 ML VIAL SQ SCH (20:49)
[2016-11-01 22:31] LABS: Hemoglobin A1C 5.6 % (4.2-6.1)
[2016-11-01] MEDS ORDERED: IV VANCOMYCIN PER PHARMACY 1 EACH MISC MISCELLANE PRN (23:09)
[2016-11-02] MEDS ORDERED: VANCOMYCIN 1,500 MG in SODIUM CHLORIDE 0.9% 250 ML IVPB ONE ×2
[2016-11-02] MEDS: methylPREDNISolone SOD SUCCI 125 MG/2 ML VIAL IV SCH ×3 (06:37→18:55)
[2016-11-02 07:24] LABS: Glucose,Whole Blood 176 mg/dL (75-99)
[2016-11-02] MEDS: PANTOPRAZOLE 40 MG TABLET PO SCH (07:42)
[2016-11-02] MEDS: INSULIN LISPRO (humaLOG) 300 UNIT/3 ML VIAL SQ SCH ×3 (07:42→18:55)
[2016-11-02] MEDS: PIPERACILLIN-TAZOBACTAM 3.375 GM in DEXTROSE/WATER 1 50ML.BAG IVPB SCH ×2 (07:42→16:06)
[2016-11-02] MEDS: lamoTRIgine 100 MG TAB PO SCH (07:43)
[2016-11-02] MEDS: METOPROLOL SUCCINATE (ER) 50 MG TAB.ER.24H PO SCH (07:43)
[2016-11-02] MEDS: LISINOPRIL 20 MG TAB PO SCH (07:43)
[2016-11-02] MEDS: HEPARIN SODIUM,PORCINE 5,000 UNIT/ML 1 ML VIAL SQ SCH (07:43)
[2016-11-02] MEDS: ATORVASTATIN 20 MG TAB PO SCH (07:43)
[2016-11-02] MEDS: clonazePAM 1 MG TAB PO SCH (07:43)
[2016-11-02] MEDS: DESVENLAFAXINE SUCCINATE 50 MG TAB.ER.24H PO SCH (07:43)
[2016-11-02] MEDS: HYDROcodone/APAP 10-325MG 1 EACH TAB PO PRN ×3 (07:44→16:05)
[2016-11-02] MEDS: ALBUTEROL NEBULIZED 2.5 MG/3 ML INHALATION SCH ×3 (08:37→15:35)
[2016-11-02] MEDS: IPRATROPIUM 0.5 MG/2.5 ML NEBU INHALATION SCH ×2 (08:37→11:45)
[2016-11-02 09:13] LABS: Basophils % (A) 0 %; CH 29.7; CHCM 33.1; Eosinophils % (A) 0 %; HCT 35.4 % (39.0-53.0); HDW 3.17; HGB 11.6 gm/dL (13.0-17.5); Luc # (Auto) 0.09; Luc % (Auto) 2; Lymphocytes # (A) 0.5 k/uL (1.0-4.8); Lymphocytes % (A) 13 %; MCH 29.7 pg (25.0-35.0); MCHC 32.9 g/dL (31.0-37.0); MCV 90.1 fL (80.0-100.0); Mean Platelet Volume 7.8; Monocytes # (A) 0.1 k/uL (0-1.0); Monocytes % (A) 3 %; Neutrophils # (A) 3.1 k/uL (1.3-7.7); Neutrophils % (A) 82 %; RBC 3.92 m/uL (4.30-5.90); RDW 13.6 % (11.5-15.5); WBC 3.9 k/uL (3.8-10.6); WBC (Perox) 3.94
[2016-11-02 09:15] LABS: Anion Gap 12 mmol/L; Blood Urea Nitrogen 16 mg/dL (9-20); Calcium 9.1 mg/dL (8.4-10.2); Carbon Dioxide 25 mmol/L (22-30); Chloride 104 mmol/L (98-107); Glucose 177 mg/dL (74-99); Non-African American GFR(MDRD) >60 (>60 ml/min/1.73 sqM); Potassium 4.3 mmol/L (3.5-5.1); Sodium 141 mmol/L (137-145)
[2016-11-02] MEDS ORDERED: VANCOMYCIN 1,500 MG in SODIUM CHLORIDE 0.9% 250 ML IVPB SCH (10:00)
--- NOTE | 2016-11-02 12:03 | CONS ---
DATE OF SERVICE: 11/01/2016 REASON FOR CONSULTATION: Persistent fever. HISTORY OF PRESENT ILLNESS: The patient is a 51-year-old male admitted to [facility] as transfer from the [facility] where the patient present with increasing shortness of breath and cough. The patient initially went there about two weeks ago and patient was diagnosed with pneumonia. Patient was given antibiotics and was taking it twice a day. He does not remember the name of the antibiotic he was taking. However, he was taking it for two weeks. He did not have any improvement and he presented back to [place] with shortness of breath and also has a cough productive of some sputum and no significant chest pain. Patient also has history of epigastric hernia repair done by Dr. Juarez with mesh in August 2016 and patient has been complaining of abdominal pain in the epigastric area. There is some swelling but no redness. Pain described to be dull aching 4 to 5 out of 10 and no radiation. The patient did have CT of the abdominal and pelvis done at that facility which showed possibility of pneumonia and increasing fluid collection around the mesh. The patient has been transferred to the [facility] and has been evaluated by primary and pulmonary services and is being treated for pneumonia with Levaquin and Zosyn. However, despite being on the broad spectrum antibiotics the patient continued to have a fever of 101 to 102 degrees Fahrenheit. Hence, I was asked to see the patient this evening for further recommendations regarding antibiotic therapy. REVIEW OF SYSTEMS: CONSTITUTIONAL: Positive for weakness along with fever. EYES: No complaint. ENT: No complaint. RESPIRATORY: As per HPI CARDIOVASCULAR: No complaint. GENITOURINARY: No complaint. GASTROINTESTINAL: As per HPI. MUSCULOSKELETAL: No complaint. INTEGUMENTARY: No complaint. PSYCHOLOGICAL: No complaint. ENDOCRINE: No complaint. NEUROLOGICAL: No complaint. PAST MEDICAL HISTORY: Hypertension, hyperlipidemia, pneumonia, gastroesophageal reflux disease, seizure disorder, sleep apnea, hypothyroidism, MRSA, skin ( ) infection. PAST SURGICAL HISTORY: Adenoidectomy, appendectomy, cholecystectomy, heart catheterization, hernia repair, and tonsillectomy. SOCIAL HISTORY: Former smoker. No drinking. Did admit to marijuana and cocaine use. FAMILY HISTORY: History of lymphoma. ALLERGIES: No known drug allergies. Medications include the patient is currently on Tylenol, [place], Ventolin, Lipitor, Wellbutrin, Klonopin, Pristiq, heparin, Humalog, Atrovent, Lamictal, levofloxacin, Zestril, Solu-Medrol, Protonix and pip-tazobactam. On examination: Blood pressure 103/56 with pulse 54. Temperature 98.2. He is 99 % on room air. General description is an elderly male lying in bed in no distress. No tachypnea or accessory muscle of respiration use. HEENT examination shows slight pallor. No scleral icterus. Oral mucous membrane is dry. NECK: Trachea is central. No thyromegaly. LUNGS: Unlabored breathing. Decreased sounds at the bases. HEART: S1, S2 regular rate and rhythm. ABDOMEN: Soft. He is tender up in the gastric area. No significant redness was noticed. No organomegaly. EXTREMITIES: No edema feet. SKIN: No rash or mass palpable. NEUROLOGICAL: Patient is awake, alert, oriented x3. Mood and affect normal. LABS: Hemoglobin is 11.3, white count 3.4 with BUN 15, creatinine 1.22. Sputum is Nichelle albicans. Blood cultures obtained and currently pending. DIAGNOSTIC IMPRESSION AND PLAN: Patient with fever in patient who presented to outside facility with multiple symptoms including shortness of breath, cough and patient also having epigastric abdominal pain and patient did have ventral hernia repair by Dr. Juarez in August [address] showed increasing fluid collection around the mesh with question of possible abscess not entirely ruled out. Even a seroma can contribute to fever that the patient is having. With the patient having persistent fever despite being on broad-spectrum Gram-negative coverage, will need to cover for the Gram-positive amari as the patient does have previous history of MRSA infection. PLAN: 1. Will try to obtain another sputum for Gram-stain culture and sensitivities. 2. Will request Interventional Radiology for CT guided drainage of the fluid and she was sent for cultures both anaerobic and aerobic. 3. Patient continues on Zosyn and I will add Vancomycin pharmacy to dose. 4. Will follow up on clinical condition and cultures to further adjust medication if needed. Thank you for this consultation. I will follow with patient along with you. LIA
[2016-11-02 12:09] LABS: Glucose,Whole Blood 138 mg/dL (75-99)
--- NOTE | 2016-11-02 14:56 | P.PN ---
Subjective This is a very pleasant 51-year-old gentleman who follows with Dr. Alaina Wynne as his primary care physician. 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 Since that time he states he has had frequent pneumonias and bronchitis episodes. Has has a previous smoking history, marijuana use and cocaine abuse. He had presented to [facility] after developing worsening shortness of breath cough and congestion. He had been on antibiotics in the outpatient setting without significant improvement. He was found to have a pneumonia on his computed tomography scan and was transferred here for the same. The patient is seen today in consultation on the regular medical floor. He is awake and alert in no acute distress. Today's chest x- ray does not show any significant areas of density/consolidation/atelectasis. The computed tomography scan from [place] did show a small area of patchy density in the posterior aspect of the right lower lobe. He is maintaining good O2 saturations in the low 90s on room air. He has been having issues with chills and night sweats. His current temperature is 101.5. No leukocytosis. He's been hemodynamically stable. He remains on Zosyn and Levaquin. The patient is seen again today 10/31/2016 in follow-up on the regular medical floor. He is awake and alert in no acute distress. He is still having ongoing issues with fever. Currently 101.1. No leukocytosis. Sputum thus far has preliminary yeast. He remains on Levaquin and Zosyn. His breathing is easier today as compared to yesterday. On 11/01/2016 the patient is being seen in follow-up on a medical floor. Still bronchospastic and wheezy. Has a congested cough. I would say there is only a modest improvement over the past 24 hours as the patient is still having bronchospasm, wheezing, chest congestion and tightness. No significant leukocytosis. The patient remains on bronchodilators, systemic steroids and broad-spectrum antibiotics. He is still on a combination of Zosyn and Levaquin. On 11/02/2016 the patient is seen on the regular medical floor. He is awake and alert in no acute distress. He is breathing easier today as compared to yesterday. His cough has improved. Currently nonproductive. He is less bronchospastic and wheezy. Patient also had complaints of epigastric abdominal pain and a computed tomography scan did show increasing fluid collection around the mesh with question of possible abscess versus seroma. He's been initiated on vancomycin per ID. Objective - Vital Signs Vital signs: Vital Signs Temp 96.8 F L 11/02/16 07:00 Pulse 76 11/02/16 12:01 Resp 16 11/02/16 07:00 BP 107/69 11/02/16 07:00 Pulse Ox 92 L 11/02/16 08:39 Intake & Output 11/01/16 11/02/16 11/02/16 18:59 06:59 18:59 Other: Voiding Method Toilet # Voids 1 1 1 - Exam GENERAL EXAM: Alert, active, comfortable in no apparent distress. HEAD: Normocephalic. EYES: Normal reaction of pupils, equal size. NOSE: Clear with pink turbinates. THROAT: No erythema or exudates. NECK: No masses, no JVD. CHEST: No chest wall deformity. LUNGS: Equal air entry with few scattered rhonchi, end expiratory wheeze.. CVS: S1 and S2 normal with no audible murmurs, regular rhythm. ABDOMEN: No hepatosplenomegaly, normal bowel sounds, no guarding or rigidity. SPINE: No scoliosis or deformity SKIN: No rashes CENTRAL NERVOUS SYSTEM: No focal deficits, tone is normal in all 4 extremities. Extremities: There is no significant peripheral edema. No clubbing, no cyanosis. Peripheral pulses are intact. - Labs CBC & Chem 7: 11/02/16 08:34 11/02/16 08:34 Labs: Abnormal Lab Results - Last 24 Hours (Table) 11/01/16 11/01/16 11/02/16 Range/Units 17:05 20:46 07:23 RBC (4.30-5.90) m/uL Hgb (13.0-17.5) gm/dL Hct (39.0-53.0) % Lymphocytes # (1.0-4.8) k/uL Glucose (74-99) mg/dL POC Glucose (mg/dL) 159 H 224 H 176 H (75-99) mg/dL 11/02/16 11/02/16 11/02/16 Range/Units 08:34 08:34 11:59 RBC 3.92 L (4.30-5.90) m/uL Hgb 11.6 L (13.0-17.5) gm/dL Hct 35.4 L (39.0-53.0) % Lymphocytes # 0.5 L (1.0-4.8) k/uL Glucose 177 H (74-99) mg/dL POC Glucose (mg/dL) 138 H (75-99) mg/dL Microbiology - Last 24 Hours (Table) 11/01/16 08:06 Blood Culture - Preliminary Blood No Growth after 24 hours 10/30/16 09:00 Gram Stain - Final Sputum Sputum Culture - Final Nichelle tropicalis Assessment and Plan Plan: Impression: #1 Acute exacerbation of chronic obstructive pulmonary disease complicated by an acute right lung pneumonia noted on computed tomography scan of the chest from outside facility. Improved. #2 Febrile illness secondary to above, there is also concern regarding possible abdominal abscess versus seroma surrounding the mesh from the hernia repair. #3 Chronic and ongoing tobacco dependence. #4 Marijuana use. #5 History of cocaine use. #6 History of ADHD. #7 History of bipolar disorder. #8 History of panic disorder. #9 History of ventilatory dependence following a tonsillectomy. #10 Hyperlipidemia. #11 Hypertension. #12 Attention deficit disorder. Plan: The patient was seen and evaluated by Dr. Jj. We'll continue with his current medications including antibiotics in the form of Zosyn and Levaquin. Continue bronchodilators and IV Solu-Medrol. He has been seen and evaluated by infectious disease. Vancomycin has now been added. We'll continue to follow and make further recommendations based on his clinical status.
[2016-11-02 14:59] VITALS: BP 112/69; RESP 18; TEMP 97
[2016-11-02 15:47] VITALS: PULSE 82
--- NOTE | 2016-11-02 16:48 | P.PN ---
Subjective Personal being dictated for Dr. Carballo. Interval history: This is a 51-year-old gentleman admitted with acute right lobe pneumonia, recent ventral hernia repair and multiple other medical issues. Possible abscess per abdominal CT from [facility], surgical consult in place, recommendations pending. Continues on Levaquin and Zosyn. T-max 102.6 , WBC normal, preliminary sputum culture reporting yeast species. States breathing improving. 11/01/2016 maintained on nebulized bronchodilators, steroids, Zosyn and Levaquin with mild improvement in breathing. Persistent fevers, T-max 101.3, WBC 3.4. Reports chills. Infectious disease consulted and recommending draining of abscess. Vancomycin added to med regime as per infectious disease. Further recommendations from surgery pending. Objective - Vital Signs Vital signs: Vital Signs Temp 98.2 F 11/01/16 15:00 Pulse 79 11/01/16 16:41 Resp 16 11/01/16 15:00 BP 103/56 11/01/16 15:00 Pulse Ox 99 11/01/16 15:00 Intake & Output 11/01/16 11/01/16 11/02/16 06:59 18:59 06:59 Other: # Voids 200 1 - Exam PHYSICAL EXAM: VITAL SIGNS: As above GENERAL: [Sitting up in bed, no acute distress] HEENT: [Pupils equal conjunctiva normal. Oral mucosa moist.] NECK: [Supple, no JVD] RESPIRATORY EFFORT:[ Normal] LUNGS: [Bilateral bases diminished, scattered rhonchi, expiratory wheezing , no crackles] CARDIOVASCULAR[ regular S1 and S2, no murmurs rubs or gallops, no edema] GI: [Abdomen soft, status post recent ventral hernia repair, abdominal binder present ,no guarding, no rigidity, positive bowel sounds.] PSYCH: [Alert and oriented -3, mood and affect normal.] NEURO: No focal deficits, moves all 4 extremities, strength and sensation grossly intact Microbiology 11/01/16 08:06 Blood Blood Culture - Preliminary No Growth after 24 hours 10/30/16 09:00 Sputum Gram Stain - Final 10/30/16 09:00 Sputum Sputum Culture - Final Nichelle tropicalis - Labs CBC & Chem 7: 11/02/16 08:34 11/02/16 08:34 Labs: Abnormal Lab Results - Last 24 Hours (Table) 11/01/16 11/01/16 11/01/16 Range/Units 08:06 08:06 17:05 WBC 3.4 L (3.8-10.6) k/uL RBC 3.73 L (4.30-5.90) m/uL Hgb 11.3 L (13.0-17.5) gm/dL Hct 33.3 L (39.0-53.0) % Lymphocytes # 0.7 L (1.0-4.8) k/uL Sodium 134 L (137-145) mmol/L POC Glucose (mg/dL) 159 H (75-99) mg/dL Microbiology - Last 24 Hours (Table) 10/30/16 09:00 Gram Stain - Final Sputum Sputum Culture - Final Nichelle tropicalis Assessment and Plan Plan: 1. Acute right lobe pneumonia, possibly community-acquired, possibly gram- negative. 2. [ Recent ventral hernia repair, possible abscess, [place] CT being reviewed by surgery. 3. [ Gastroesophageal reflux disease]. 4. [ Hypertension]. 5. [ Hyperlipidemia]. 6. [ History of seizure disorder]. 7. [] Sleep apnea. 8. History of MRSA 9. LAP-BAND and removal 10. Nicotine dependence 11. History of cocaine use 12. Marijuana use 13. History of bipolar disorder. Plan: Continue on current medication regime , nebulized bronchodilators, antibiotics, steroids, monitoring and symptomatic treatment. Antibiotics as per infectious disease. Potential draining of abscess currently being discussed. Aggressive pulmonary toileting. Patient instructed to increase ambulation as tolerated with assist, as tolerated. Smoking cessation readdressed. Further recommendations to follow. The impression and plan of care has been dictated as directed. : I performed a H&P examination of this patient and discussed the same with the dictator. I agree with the dictator's note. Any additional findings/opinions/ etc. will be noted.
--- NOTE | 2016-11-02 16:54 | PN ---
DATE OF SERVICE: 11/02/2016 REASON FOR FOLLOWUP: Pneumonia and abdominal fluid with a question of seroma versus abscess. INTERVAL HISTORY: The patient overall feels better and has improved. No fever has been recorded in the last 24 hours. Patient is breathing comfortably. The cough has decreased in intensity ( ) no chest pain. Denies any worsening abdominal pain. No nausea, vomiting or any diarrhea. On examination, blood pressure is 124/69 with a pulse of 60, temperature of 97. He is 92% on 2 L nasal cannula. General description is a middle-aged male lying in bed in no distress. RESPIRATORY SYSTEM: Unlabored breathing. Coarse breath sounds bilaterally. HEART: S1, S2. Regular rate and rhythm. ABDOMEN: Soft. No tenderness. EXTREMITIES: No edema of the feet. LABS: Hemoglobin 11.6, white count 3.9 with a BUN of 16, creatinine 1.05. Blood culture is so far negative. Repeats were ordered and are currently pending. DIAGNOSTIC IMPRESSION AND PLAN: 1. Patient admitted to hospital with difficulty breathing; did have a cough productive of sputum and evidence of pneumonia on the CT, failing outpatient oral antibiotic therapy, currently on Zosyn and Levaquin. Vancomycin was added because of persistent fever, and repeat sputum has been ( ) finalize. 2. Patient with recent abdominal wall hernia repair with mesh with ( ) fluid ( ) question of possible seroma versus abscess. The CT-guided fluid drainage has been cancelled by Surgery. Will continue to monitor him closely. LIA
[2016-11-02] MEDS: LEVOFLOXACIN 750 MG TAB PO SCH (18:55)
--- NOTE | 2016-11-05 16:31 | DS ---
DATE OF SERVICE: 11/02/2016 FINAL DIAGNOSES: 1. Acute right lower lobe pneumonia, possibly community-acquired, possibly Gram- negative. 2. Recent ventral hernia repair, possible abscess, possible fluid collection. 3. Gastroesophageal reflux disease. 4. Hypertension. 5. Hyperlipidemia. 6. History of seizure disorder. 7. History of sleep apnea. 8. History of MRSA. 9. History of lap band removal. 10. History of nicotine dependence. 11. History of cocaine usage remotely. 12. History of bipolar disorder. DISCHARGE DISPOSITION: Patient will be discharged in stable condition with guarded prognosis. Total time taken 35 minutes. HISTORY OF PRESENT ILLNESS: This 51-year-old gentleman with a past medical history of multiple medical problems was admitted recently with a history of features of pneumonia. Patient also had recent surgery. The possibility of abscess or fluid collection was noted. Patient was treated with broad-spectrum IV antibiotics. He was seen by Surgery and Infectious Disease. On exam, vitals are stable. CARDIOVASCULAR: S1, S2 muffled. ABDOMEN: Soft. NERVOUS SYSTEM: No focal deficit. LABS: WBC 3.9, hemoglobin 11.6. The patient will be discharged in stable condition with guarded prognosis with the following advice and medications: 1. Diet is cardiac. 2. Activity limited until followup. 3. Follow up with Dr. Alaina Wynne in 2 to 3 days. 4. Follow up with Dr. Jj as recommended. 5. Follow up with Dr. Juarez as advised. 6. Ventolin p.r.n. 7. Albuterol p.r.n. 8. Ecotrin 81 mg daily. 9. Lipitor 20 mg daily. 10. Symbicort 160/4.5 two puffs b.i.d. 11. Wellbutrin XL 500 mg p.o. at bedtime. 12. Ceftin 500 mg p.o. b.i.d. for 10 days. 13. Klonopin 1 mg p.o. b.i.d. 14. Pristiq 50 mg p.o. daily. 15. Hydrocodone 1 tablet t.i.d. p.r.n. 16. Lamictal 200 mg p.o. b.i.d. 17. Zestril 20 mg p.o. daily. 18. Loratadine/pseudoephedrine 1 tablet p.o. daily. 19. Antivert 25 mg p.o. t.i.d. 20. Ritalin 20 mg p.o. b.i.d. 21. Singulair 10 mg each morning. 22. Omeprazole 40 mg b.i.d. 23. Prednisone taper: 40 mg daily for 3 days; 30 mg daily for 3 days; 20 mg daily for 3 days; 10 mg daily for 3 days; then stop. 24. Seroquel 600 mg at bedtime. 25. Ultram 100 mg q.6 p.r.n. MTDD
== END 2016-11-02 19:00 | disposition home or self-care (01) | DRG 178 ==
LOC: EC 18:13 → 4MS4W 19:04
PROVIDERS: ADMIT Hospitalist; ATTEND Hospitalist
DX: J15.6 Pneumonia due to other Gram-negative bacteria (principal); J44.0 Chronic obstructive pulmonary disease with (acute) lower respiratory infection; I11.9 Hypertensive heart disease without heart failure; K91.872 Postprocedural seroma of a digestive system organ or structure following a digestive system procedure; J44.1 Chronic obstructive pulmonary disease with (acute) exacerbation; E03.9 Hypothyroidism, unspecified; E78.5 Hyperlipidemia, unspecified; F12.90 Cannabis use, unspecified, uncomplicated; F14.90 Cocaine use, unspecified, uncomplicated; F31.9 Bipolar disorder, unspecified; F41.0 Panic disorder [episodic paroxysmal anxiety]; F90.9 Attention-deficit hyperactivity disorder, unspecified type; G40.909 Epilepsy, unspecified, not intractable, without status epilepticus; G47.30 Sleep apnea, unspecified; K21.9 Gastro-esophageal reflux disease without esophagitis; Z79.2 Long term (current) use of antibiotics; Z72.0 Tobacco use; Z79.51 Long term (current) use of inhaled steroids; Z79.899 Other long term (current) drug therapy; Z80.7 Family history of other malignant neoplasms of lymphoid, hematopoietic and related tissues; Z86.14 Personal history of Methicillin resistant Staphylococcus aureus infection; Z87.01 Personal history of pneumonia (recurrent); Z91.81 History of falling; Z98.84 Bariatric surgery status
CPT/HCPCS: 71020; 80048; 80053; 83036; 83605; 85025; 87040; 87070; 87205; 94640; 94760; 99285

== ENCOUNTER 2016-11-22 12:17 | Day surgery (SDC) | payer MEDICARE ==
[2016-11-22 13:10] VITALS: BP 117/81; PULSE 101; RESP 18; TEMP 98.2
--- NOTE | 2016-11-22 13:50 | US ---
Seroma drainage discontinued HISTORY: Status post hernia surgery, question recurrent hernia, history of fall Real-time sonography shows an organized fluid collection, no free fluid is evident for aspiration. IMPRESSION: Discontinued aspiration. Likely there was prior hemorrhage and clot formation.
== END 2016-11-22 13:40 | disposition home or self-care (01) ==
LOC: RADPROMAIN 12:17
PROVIDERS: ATTEND Surgery Plastic and Reconstructive Surgery
DX: T79.2XXA Traumatic secondary and recurrent hemorrhage and seroma, initial encounter (principal); Z53.8 Procedure and treatment not carried out for other reasons
CPT/HCPCS: 76536

== ENCOUNTER → 2017-02-21 | Day surgery (SDC) | payer MEDICARE, OTHER ==
[2017-02-18 15:16] VITALS: BMI 27.5
[~2017-02-21] MED LIST changes: -LACTATED RINGERS 1,000 ML IV SCH; -LIDOCAINE 1% 20 ML VIAL (10MG/ML) FOR IV START INTRADERMA PRN; +SODIUM CHLORIDE 0.9% 1,000 ML IV SCH
[2017-02-21 08:27] VITALS: BP 121/81; PULSE 81; RESP 18; TEMP 98.1
--- NOTE | 2017-02-21 11:41 | P.PCN ---
Preoperative Diagnosis: Twelve-lead ECG shows sinus mechanism normal SD interval absolute QT interval of 400 ms no delta waves Tilt table test report Baseline blood pressure 134/89 mmHg Baseline heart rate 81 beats a minute. Patient was tilted upright at an angle of 70 per protocol. There was an immediate drop in blood pressure to 101/57 mmHg and the patient became very dizzy with blurred vision but gradually this improved as his blood pressure settled and thereafter he remained asymptomatic with blood pressure with a mild increase in heart rate. No syncope Impression Orthostatic hypotension, symptomatic with dizziness and blurred vision No evidence for neurocardiogenic syncope Anesthesia: none Disposition: same day
== END ==
LOC: CATHEP 07:49
PROVIDERS: ATTEND Internal Medicine Clinical Cardiac Electrophysiology
DX: I95.1 Orthostatic hypotension (principal)
CPT/HCPCS: 93005; 93660

== ENCOUNTER 2017-03-22 06:22 | Day surgery (SDC) | payer MEDICARE, OTHER ==
[2017-03-14 11:31] VITALS: BMI 27.1
[~2017-03-22 06:22] MED LIST changes: +DEXAMETHASONE SOD PHOSPHATE 10 MG/ML 1 ML VIAL IV ONE; +HEPARIN SODIUM,PORCINE 5,000 UNIT/ML 1 ML VIAL SQ ONE; +HYDROmorphone 0.5 MG/0.5 ML SYRINGE IVP PRN; +LACTATED RINGERS 1,000 ML IV SCH; +LIDOCAINE 1% 20 ML VIAL (10MG/ML) FOR IV START INTRADERMA PRN; +MIDAZOLAM 2 MG/2 ML VIAL IV PRN; +ONDANSETRON 4 MG/2 ML VIAL IVP ONE; +SCOPOLAMINE 1.5MG/72HR PATCH TRANSDERM ONE; -SODIUM CHLORIDE 0.9% 1,000 ML IV SCH; +ceFAZolin IN SWFI 2 GM/20 ML SYRINGE IVP ONE
[2017-03-22 07:05] LABS: Glucose,Whole Blood 98 mg/dL (75-99)
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
[2017-03-22] MEDS ORDERED: VANCOMYCIN 1,250 MG in SODIUM CHLORIDE 0.9% 250 ML IVPB STA (07:11)
[2017-03-22] MEDS ORDERED: HYDROCORTISONE SUCCINATE 100 MG/2 ML VIAL IV ONE (07:28)
[2017-03-22] MEDS ORDERED: fentaNYL (PF) 50 MCG/ML 2 ML AMP ONE (07:34)
[2017-03-22] MEDS ORDERED: MIDAZOLAM 2 MG/2 ML VIAL ONE (07:34)
[2017-03-22] MEDS ORDERED: PROPOFOL 10 MG/ML 20 ML VIAL IV ONE (07:34)
[2017-03-22] MEDS ORDERED: SUCCINYLCHOLINE CHLORIDE 100 MG/5 ML SYR IV ONE (07:34)
[2017-03-22] MEDS ORDERED: KETOROLAC 30 MG/ML 1 ML VIAL ONE (07:34)
[2017-03-22] MEDS ORDERED: PHENYLEPHRINE-0.9% NACL SYG 1 MG/10 ML SYRINGE ONE (07:34)
[2017-03-22] MEDS ORDERED: HYDROmorphone (PF) 1 MG/ML ONE (07:34)
[2017-03-22] MEDS ORDERED: VECURONIUM 10 MG VIAL IV ONE (07:34)
[2017-03-22] MEDS ORDERED: ePHEDrine SULFATE/0.9% NACL/PF 50 MG/5 ML SYRINGE IV ONE (07:34)
[2017-03-22] MEDS ORDERED: LIDOCAINE 1% INJ 10MG/ML (20 ML MDV) ONE (07:34)
[2017-03-22] MEDS ORDERED: LIDOCAINE 2%-EPI 1:100,000 20 ML VIAL SQ ONE (07:57)
[2017-03-22] MEDS ORDERED: LACTATED RINGERS 1,000 ML IV ONE (08:54)
[2017-03-22 09:42] VITALS: TEMP 98
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
[2017-03-22] MEDS ORDERED: HYDROcodone/APAP 5-325MG 1 EACH TAB PO PRN (09:49)
[2017-03-22] MEDS ORDERED: NALOXONE 0.4 MG/ML 1 ML VIAL IV PRN (09:49)
[2017-03-22] MEDS: KETOROLAC 30 MG/ML 1 ML VIAL IVP SCH ×2 (10:09→10:38)
[2017-03-22] MEDS ORDERED: HYDROcodone/APAP 7.5-325MG 1 EACH TAB PO ONE (10:40)
[2017-03-22 10:43] VITALS: RESP 18
[2017-03-22 11:07] VITALS: BP 137/83; PULSE 90
== END 2017-03-22 11:27 | disposition home or self-care (01) ==
LOC: OR 06:22
PROVIDERS: ATTEND Surgery Plastic and Reconstructive Surgery
DX: K43.2 Incisional hernia without obstruction or gangrene (principal); E07.9 Disorder of thyroid, unspecified; E78.5 Hyperlipidemia, unspecified; F32.9 Major depressive disorder, single episode, unspecified; F41.9 Anxiety disorder, unspecified; F90.9 Attention-deficit hyperactivity disorder, unspecified type; G40.909 Epilepsy, unspecified, not intractable, without status epilepticus; G47.33 Obstructive sleep apnea (adult) (pediatric); G89.29 Other chronic pain; I11.9 Hypertensive heart disease without heart failure; J42 Unspecified chronic bronchitis; K21.9 Gastro-esophageal reflux disease without esophagitis; Z86.14 Personal history of Methicillin resistant Staphylococcus aureus infection; Z87.891 Personal history of nicotine dependence; Z80.7 Family history of other malignant neoplasms of lymphoid, hematopoietic and related tissues; Z79.899 Other long term (current) drug therapy; Z98.84 Bariatric surgery status; Z79.82 Long term (current) use of aspirin
CPT/HCPCS: 49565; J2250; J3370; J1644; J1100; J1720; J2405; J2001; J3010; J1885; J1170; J2370; J0330; J2704

== ENCOUNTER 2017-08-21 10:27 | Day surgery (SDC) | payer MEDICARE, OTHER ==
[2017-08-19 16:19] VITALS: BMI 27.8
--- NOTE | 2017-08-21 08:08 | P.GSHP ---
History of Present Illness H&P Date: 08/21/17 CHIEF COMPLAINT: GERD HISTORY OF PRESENT ILLNESS: The patient is a 51-year-old male who presents reports gastroesophageal reflux disease. Upper endoscopy was offered for further evaluation and management. PAST MEDICAL HISTORY: Please see list. PAST SURGICAL HISTORY: Please see list. MEDICATIONS: Please see list. ALLERGIES: Please see list. SOCIAL HISTORY: No illicit drug use FAMILY HISTORY: No reports of Crohn disease or ulcerative colitis. REVIEW OF ORGAN SYSTEMS: CONSTITUTIONAL: No reports of fevers or chills. GI: Denies any blood in stools or constipation. PHYSICAL EXAM: VITAL SIGNS: Stable GENERAL: Well-developed and pleasant in no acute distress. HEENT: No scleral icterus. Extraocular movements grossly intact. Moist buccal mucosa. NECK: Supple without lymphadenopathy. CHEST: Unlabored respirations. Equal bilateral excursions. CARDIOVASCULAR: Regular rate and rhythm. Distal 2+ pulses. ABDOMEN: Soft, nondistended. MUSCULOSKELETAL: No clubbing, cyanosis, or edema. ASSESSMENT: 1. Gastroesophageal reflux disease PLAN: 1. Recommend proceeding with an upper endoscopy Past Medical History Past Medical History: COPD, GERD/Reflux, Hyperlipidemia, Hypertension, Musculoskeletal Disorder, Pneumonia, Respiratory Disorder, Seizure Disorder, Skin Disorder, Sleep Apnea/CPAP/BIPAP, Thyroid Disorder Additional Past Medical History / Comment(s): FREQUENT VOMITING, HX ABSCESSES LEGS with MRSA, CELLULTIS. HX SEIZURE X2, 2011, BIT PART OF TONGUE OFF. NOT ABLE TO USE BIPAP. OLD FX BACK, 2002. HX MRSA Neck/Face/RT THIGH/LT CALF. ENLARGED HEART. CHRONIC BRONCHITIS. "past compression fx l1" History of Any Multi-Drug Resistant Organisms: MRSA Date of last positivie culture/infection: 03/07/16 MDRO Source:: LEFT LEG Past Surgical History: Adenoidectomy, Appendectomy, Cholecystectomy, Heart Catheterization, Hernia Repair, Tonsillectomy Additional Past Surgical History / Comment(s): ABD HERNIA SURG X3; LAP BAND 2010 EST. 15 LAP REMOVAL OF LAP BAND AND PORT. COLONOSCOPY, EGD. EXC Areas of MRSA on face, neck, LEGS 2016. VENTRAL HERNIA REPAIR 07/2016, Past Anesthesia/Blood Transfusion Reactions: Previous Problems w/ Anesthesia Additional Past Anesthesia/Blood Transfusion Reaction / Comment(s): 1985 DURING T&A SURG, DEVELOPED FLUID IN LUNGS, PUT ON VENT. Smoking Status: Former smoker - Past Family History Mother Family Medical History: No Reported History Additional Family Medical History / Comment(s): PT STATED MOM IS HEALTHY Father Family Medical History: Cancer Additional Family Medical History / Comment(s): LYMPHOMA Medications and Allergies Home Medications Medication Instructions Recorded Confirmed Type lamoTRIgine [LaMICtal] 200 mg PO BID 04/21/15 08/19/17 History Desvenlafaxine Succinate [Pristiq 50 mg PO QAM 03/06/16 08/19/17 History ER] Lisinopril [Zestril] 20 mg PO QAM 03/06/16 08/19/17 History Methylphenidate HCl [Ritalin] 20 mg PO BID 03/06/16 08/19/17 History QUEtiapine FUMARATE [SEROquel] 600 mg PO HS 03/06/16 08/19/17 History clonazePAM [KlonoPIN] 1 mg PO BID 03/06/16 08/19/17 History buPROPion HCL [Wellbutrin XL] 300 mg PO QAM 07/16/16 08/19/17 History Atorvastatin Calcium [Lipitor] 20 mg PO DAILY 09/19/16 08/19/17 History Albuterol Inhaler [Ventolin Hfa 2 puff INHALATION RT-Q4H PRN 10/29/16 08/19/17 History Inhaler] Albuterol Nebulized [Ventolin 2.5 mg INHALATION RT-Q6H PRN 10/29/16 08/19/17 History Nebulized] Budesonide-Formot 160-4.5 Mcg 2 puff INHALATION RT-BID 10/29/16 08/19/17 History [Symbicort 160-4.5 Mcg Inhaler] Meclizine [Antivert] 25 mg PO TID PRN 10/29/16 08/19/17 History Montelukast Sodium [Singulair] 10 mg PO QAM 10/29/16 08/19/17 History Omeprazole 40 mg PO AC-BRKFST 10/29/16 08/19/17 History HYDROcodone/APAP 7.5-325MG [[place] 1 each PO Q4H PRN #30 tab 03/22/17 08/19/17 Rx 7.5-325] Allergies Allergy/AdvReac Type Severity Reaction Status Date / Time No Known Allergies Allergy Verified 08/19/17 16:12
[~2017-08-21 10:27] MED LIST changes: -DEXAMETHASONE SOD PHOSPHATE 10 MG/ML 1 ML VIAL IV ONE; -HEPARIN SODIUM,PORCINE 5,000 UNIT/ML 1 ML VIAL SQ ONE; -HYDROmorphone 0.5 MG/0.5 ML SYRINGE IVP PRN; -MIDAZOLAM 2 MG/2 ML VIAL IV PRN; -ONDANSETRON 4 MG/2 ML VIAL IVP ONE; -SCOPOLAMINE 1.5MG/72HR PATCH TRANSDERM ONE; -ceFAZolin IN SWFI 2 GM/20 ML SYRINGE IVP ONE
[2017-08-21 11:48] VITALS: RESP 16; TEMP 97.2
[2017-08-21] MEDS ORDERED: MIDAZOLAM 2 MG/2 ML VIAL IVP ONE (13:15)
[2017-08-21] MEDS ORDERED: PROPOFOL 10 MG/ML 20 ML VIAL IV ONE (14:11)
[2017-08-21] MEDS ORDERED: MIDAZOLAM 2 MG/2 ML VIAL ONE (14:11)
--- NOTE | 2017-08-21 14:27 | P.PCN ---
Date of Procedure: 08/21/17 Description of Procedure: PREOPERATIVE DIAGNOSIS: Gastroesophageal reflux disease. POSTOPERATIVE DIAGNOSIS: Gastritis Gastroesophageal reflux disease. OPERATION: Esophagogastroduodenoscopy with biopsies along antrum. SURGEON: Elvia Juarez MD ANESTHESIA: MAC. INDICATIONS: The patient is a 51-year-old female who presents with a history of reflux disease. Benefits and risks of the procedure were described. Informed consent was obtained. DESCRIPTION: The patient was brought into the endoscopy suite and laid in the left lateral decubitus position. An Olympus gastroscope was passed along the posterior oropharynx down to the distal esophagus where the squamocolumnar junction was encountered at 41 cm from the incisors. The stomach was entered and no bile reflux was found. Additional findings are listed below. Biopsies with cold forceps were obtained of the antrum. The first through third portion of the duodenum was examined and unremarkable. Retroflexion of the scope confirmed Hill grade 2 lower esophageal valve. The squamocolumnar junction no acute LA grade A erosive esophagitis. The stomach was desufflated. The patient tolerated the procedure well. FINDINGS: Squamocolumnar junction 41 cm from the incisors. Diaphragmatic hiatus at 41 cm. Hill grade 2 lower esophageal valve. No LA grade A erosive esophagitis. No active duodenitis. Chronic gastritis RECOMMENDATIONS: Further recommendations pending results of pathology report. Upper endoscopy as needed. Plan - Discharge Summary New Discharge Prescriptions: No Action lamoTRIgine [LaMICtal] 200 mg PO BID Lisinopril [Zestril] 20 mg PO QAM clonazePAM [KlonoPIN] 1 mg PO BID QUEtiapine FUMARATE [SEROquel] 600 mg PO HS Methylphenidate HCl [Ritalin] 20 mg PO BID Desvenlafaxine Succinate [Pristiq ER] 50 mg PO QAM buPROPion HCL [Wellbutrin XL] 300 mg PO QAM Atorvastatin Calcium [Lipitor] 20 mg PO DAILY Montelukast Sodium [Singulair] 10 mg PO QAM Albuterol Nebulized [Ventolin Nebulized] 2.5 mg INHALATION RT-Q6H PRN PRN Reason: Dyspnea Budesonide-Formot 160-4.5 Mcg [Symbicort 160-4.5 Mcg Inhaler] 2 puff INHALATION RT-BID Albuterol Inhaler [Ventolin Hfa Inhaler] 2 puff INHALATION RT-Q4H PRN PRN Reason: Dyspnea Omeprazole 40 mg PO AC-BRKFST Meclizine [Antivert] 25 mg PO TID PRN PRN Reason: Vertigo HYDROcodone/APAP 7.5-325MG [[place] 7.5-325] 1 each PO Q4H PRN #30 tab PRN Reason: Pain Discharge Medication List lamoTRIgine [LaMICtal] 200 mg PO BID 04/21/15 [History] Desvenlafaxine Succinate [Pristiq ER] 50 mg PO QAM 03/06/16 [History] Lisinopril [Zestril] 20 mg PO QAM 03/06/16 [History] Methylphenidate HCl [Ritalin] 20 mg PO BID 03/06/16 [History] QUEtiapine FUMARATE [SEROquel] 600 mg PO HS 03/06/16 [History] clonazePAM [KlonoPIN] 1 mg PO BID 03/06/16 [History] buPROPion HCL [Wellbutrin XL] 300 mg PO QAM 07/16/16 [History] Atorvastatin Calcium [Lipitor] 20 mg PO DAILY 09/19/16 [History] Albuterol Inhaler [Ventolin Hfa Inhaler] 2 puff INHALATION RT-Q4H PRN 10/29/16 [ History] Albuterol Nebulized [Ventolin Nebulized] 2.5 mg INHALATION RT-Q6H PRN 10/29/16 [ History] Budesonide-Formot 160-4.5 Mcg [Symbicort 160-4.5 Mcg Inhaler] 2 puff INHALATION RT-BID 10/29/16 [History] Meclizine [Antivert] 25 mg PO TID PRN 10/29/16 [History] Montelukast Sodium [Singulair] 10 mg PO QAM 10/29/16 [History] Omeprazole 40 mg PO AC-BRKFST 10/29/16 [History] HYDROcodone/APAP 7.5-325MG [[place] 7.5-325] 1 each PO Q4H PRN #30 tab 03/22/17 [ Rx]
[2017-08-21 14:51] VITALS: BP 136/91; PULSE 83
== END 2017-08-21 14:57 | disposition home or self-care (01) ==
LOC: ORWHC2ENDO 10:27
PROVIDERS: ATTEND Surgery Plastic and Reconstructive Surgery
DX: K29.50 Unspecified chronic gastritis without bleeding (principal); K21.9 Gastro-esophageal reflux disease without esophagitis; I10 Essential (primary) hypertension; E78.5 Hyperlipidemia, unspecified; J44.9 Chronic obstructive pulmonary disease, unspecified; G40.909 Epilepsy, unspecified, not intractable, without status epilepticus; F31.9 Bipolar disorder, unspecified; G47.30 Sleep apnea, unspecified; Z80.7 Family history of other malignant neoplasms of lymphoid, hematopoietic and related tissues; Z86.14 Personal history of Methicillin resistant Staphylococcus aureus infection; Z87.891 Personal history of nicotine dependence; Z79.51 Long term (current) use of inhaled steroids; Z79.899 Other long term (current) drug therapy
CPT/HCPCS: 88305; 43239; J2250; J2704

== ENCOUNTER 2018-04-25 09:17 | Inpatient (IN) | payer MEDICARE ==
--- NOTE | 2018-04-25 09:46 | ED ---
General Adult HPI - General Chief complaint: Psychiatric Symptoms Stated complaint: suicidal Time Seen by Provider: 04/25/18 09:27 Source: patient, RN notes reviewed Mode of arrival: ambulatory Limitations: no limitations - History of Present Illness Initial comments: Patient 52-year-old male presented to the emergency room today with a chief complaint of suicidal ideation. He does admit that he ran out of his clonidine. He states that he was seen in the hospital last week and started back on his clonidine. He states he still not feeling right. He has tried to touch base with his psychiatrist but has not received any phone calls back. States she's having thoughts of hurting himself. States that he would take a gun and shoot himself. Patient denies any homicidal thoughts or plans. He denies any other complaints. Patient denies any recent fever, shortness of breath, chest pain, back pain, vomiting, numbness or tingling, headaches or visual changes, or any other complaints. - Related Data Home Medications Medication Instructions Recorded Confirmed lamoTRIgine [LaMICtal] 200 mg PO BID 04/21/15 04/25/18 Desvenlafaxine Succinate [Pristiq 50 mg PO QAM 03/06/16 04/25/18 ER] Lisinopril [Zestril] 20 mg PO QAM 03/06/16 04/25/18 Methylphenidate HCl [Ritalin] 20 mg PO BID 03/06/16 04/25/18 QUEtiapine FUMARATE [SEROquel] 600 mg PO HS 03/06/16 04/25/18 clonazePAM [KlonoPIN] 1 mg PO BID 03/06/16 04/25/18 buPROPion HCL [Wellbutrin XL] 300 mg PO QAM 07/16/16 04/25/18 Atorvastatin Calcium [Lipitor] 20 mg PO DAILY 09/19/16 04/25/18 Budesonide-Formot 160-4.5 Mcg 2 puff INHALATION RT-BID 10/29/16 04/25/18 [Symbicort 160-4.5 Mcg Inhaler] Montelukast Sodium [Singulair] 10 mg PO QAM 10/29/16 04/25/18 Omeprazole 40 mg PO AC-BRKFST 10/29/16 04/25/18 Butalb/Acetaminophen/Caffeine 1 tab PO Q8H PRN 04/25/18 04/25/18 [Fioricet 50-325-40] Donepezil [Aricept] 10 mg PO HS 04/25/18 04/25/18 HYDROcodone/APAP 7.5-325MG [[place] 1 tab PO TID 04/25/18 04/25/18 7.5-325] Zonisamide [Zonegran] 200 mg PO HS 04/25/18 04/25/18 amLODIPine BESYLATE [Norvasc] 2.5 mg PO DAILY 04/25/18 04/25/18 Allergies Allergy/AdvReac Type Severity Reaction Status Date / Time No Known Allergies Allergy Verified 04/25/18 09:57 Review of Systems ROS Statement: Those systems with pertinent positive or pertinent negative responses have been documented in the HPI. ROS Other: All systems not noted in ROS Statement are negative. Past Medical History Past Medical History: COPD, GERD/Reflux, Hyperlipidemia, Hypertension, Musculoskeletal Disorder, Pneumonia, Respiratory Disorder, Seizure Disorder, Skin Disorder, Sleep Apnea/CPAP/BIPAP, Thyroid Disorder Additional Past Medical History / Comment(s): FREQUENT VOMITING, HX ABSCESSES LEGS with MRSA, CELLULTIS. HX SEIZURE X2, 2011, BIT PART OF TONGUE OFF. NOT ABLE TO USE BIPAP. OLD FX BACK, 2002. HX MRSA Neck/Face/RT THIGH/LT CALF. ENLARGED HEART. CHRONIC BRONCHITIS. "past compression fx l1" History of Any Multi-Drug Resistant Organisms: MRSA Date of last positivie culture/infection: 03/07/16 MDRO Source:: LEFT LEG Past Surgical History: Adenoidectomy, Appendectomy, Cholecystectomy, Heart Catheterization, Hernia Repair, Tonsillectomy Additional Past Surgical History / Comment(s): ABD HERNIA SURG X3; LAP BAND 2010 EST. 3-10-15 LAP REMOVAL OF LAP BAND AND PORT. COLONOSCOPY, EGD. EXC Areas of MRSA on face, neck, LEGS 2016. VENTRAL HERNIA REPAIR 07/2016, Past Anesthesia/Blood Transfusion Reactions: Previous Problems w/ Anesthesia Additional Past Anesthesia/Blood Transfusion Reaction / Comment(s): 1985 DURING T&A SURG, DEVELOPED FLUID IN LUNGS, PUT ON VENT. Past Psychological History: ADD/ADHD, Anxiety, Bipolar, Depression Smoking Status: Current every day smoker Past Alcohol Use History: None Reported Past Drug Use History: None Reported - Past Family History Mother Family Medical History: No Reported History Additional Family Medical History / Comment(s): PT STATED MOM IS HEALTHY Father Family Medical History: Cancer Additional Family Medical History / Comment(s): LYMPHOMA General Exam - General Exam Comments Initial Comments: General: The patient is awake and alert, in no distress, and does not appear acutely ill. Eye: There is normal conjunctiva bilaterally. No signs of icterus. Ears, nose, mouth and throat: There are moist mucous membranes and no oral lesions. Neck: The neck is supple, there is no tenderness or JVD. Cardiovascular: There is a regular rate and rhythm. No murmur, rub or gallop is appreciated. Respiratory: Lungs are clear to auscultation, respirations are non-labored, breath sounds are equal. No wheezes, stridor, rales, or rhonchi. Musculoskeletal: Normal ROM, no tenderness. Neurological: A&O x 3. CN II-XII intact, There are no obvious motor or sensory deficits. Coordination appears grossly intact. Speech is normal. Skin: Skin is warm and dry and no rashes or lesions are noted. Psychiatric: Cooperative, appropriate mood & affect, normal judgment. Limitations: no limitations Course Vital Signs 04/25/18 09:20 Temperature 97.8 F Pulse Rate 83 Respiratory 18 Rate Blood Pressure 141/75 O2 Sat by Pulse 99 Oximetry Medical Decision Making - Medical Decision Making Patient seen here [facility] They recommended that patient be admitted. Patient is willing to Sign himself in. - Lab Data Lab Results 04/25/18 Range/Units 10:10 Urine Opiates Screen Not Detected (NotDetected) Ur Oxycodone Screen Not Detected (NotDetected) Urine Methadone Screen Not Detected (NotDetected) Ur Propoxyphene Screen Not Detected (NotDetected) Ur Barbiturates Screen Detected H (NotDetected) U Tricyclic Antidepress Detected H (NotDetected) Ur Phencyclidine Scrn Not Detected (NotDetected) Ur Amphetamines Screen Not Detected (NotDetected) U Methamphetamines Scrn Not Detected (NotDetected) U Benzodiazepines Scrn Not Detected (NotDetected) Urine Cocaine Screen Not Detected (NotDetected) U Marijuana (THC) Screen Detected H (NotDetected) Disposition Clinical Impression: Suicidal ideation Disposition: TRANSFER TO PSYCH HOSP/UNIT Condition: Good Is patient prescribed a controlled substance at d/c from ED?: No Referrals: Loco Carson MD [Primary Care Provider] - 1-2 days Time of Disposition: 13:33
[2018-04-25 10:45] LABS: Amphetamine Screen,Urine Not Detected (NotDetected); Barbiturate Screen,Urine Detected (NotDetected); Benzodiazepines Screen,Urine Not Detected (NotDetected); Cocaine Screen,Urine Not Detected (NotDetected); Methadone Screen, Urine Not Detected (NotDetected); Opiate Screen,Urine Not Detected (NotDetected); Oxycodone Screen, Urine Not Detected (NotDetected); Phencyclidine Screen,Urine Not Detected (NotDetected); Tricyclic Antidepressant,Urine Detected (NotDetected); Urn Cannabinoid Scrn Detected (NotDetected)
[2018-04-25] MEDS ORDERED: MAG HYDROX/AL HYDROX/SIMETH 30 ML CUP PO PRN (14:22)
[2018-04-25] MEDS ORDERED: MAGNESIUM HYDROXIDE 2,400 MG/10 ML CUP PO PRN (14:22)
[2018-04-25] MEDS ORDERED: ZIPRASIDONE 20 MG VIAL IM PRN (14:22)
[2018-04-25] MEDS: NICOTINE 14MG/24HR PATCH TRANSDERM SCH (14:49)
[2018-04-25] MEDS ORDERED: IPRATROPIUM-ALBUTEROL 3 ML NEB INHALATION PRN (17:00)
--- NOTE | 2018-04-25 17:03 | P.MDCNMH ---
History of Present Illness H&P Date: 04/25/18 Chief Complaint: Medical management 52-year-old male with PMH of hypertension, hyperlipidemia, GERD, COPD, sleep apnea, hypothyroidism and seizure disorder, history of MRSA infection presents to the ED for suicidal ideations. Patient reports multiple episodes of nonbilious nonbloody nausea and vomiting along with diarrhea for the past 3-4 days. Patient reports that his psychiatrist would not refill his Klonopin prescription, causing him to have withdrawals. His symptoms have resolved since. Patient also reports chronic lower back pain. Patient reports and L1 and L3 compression fracture after falling off a roof in December 2002. There is no surgery involved. Patient is currently working with physical therapy and receives pain control through a pain specialist. He takes Vicodin 3 times a day for his pain. He denies any bladder or bowel incontinence, saddle anesthesia. Patient also reports chronic headache. He describes the headache as a tight band around his head. He denies any stiff neck or photophobia. No fever or chills. Otherwise, patient denies lower extremity edema, cough, chest pain, shortness of breath, palpitations, changes in urination or bowel habits. No changes in appetite or weight. Review of Systems All systems: negative Past Medical History Past Medical History: COPD, GERD/Reflux, Hyperlipidemia, Hypertension, Musculoskeletal Disorder, Pneumonia, Respiratory Disorder, Seizure Disorder, Skin Disorder, Sleep Apnea/CPAP/BIPAP, Thyroid Disorder Additional Past Medical History / Comment(s): FREQUENT VOMITING, HX ABSCESSES LEGS with MRSA, CELLULTIS. HX SEIZURE X2, 2011, BIT PART OF TONGUE OFF. NOT ABLE TO USE BIPAP. OLD FX BACK, 2002. HX MRSA Neck/Face/RT THIGH/LT CALF. ENLARGED HEART. CHRONIC BRONCHITIS. "past compression fx l1" History of Any Multi-Drug Resistant Organisms: MRSA Date of last positivie culture/infection: 03/07/16 MDRO Source:: LEFT LEG Past Surgical History: Adenoidectomy, Appendectomy, Cholecystectomy, Heart Catheterization, Hernia Repair, Tonsillectomy Additional Past Surgical History / Comment(s): ABD HERNIA SURG X3; LAP BAND 2009 EST. 15 LAP REMOVAL OF LAP BAND AND PORT. COLONOSCOPY, EGD. EXC Areas of MRSA on face, neck, LEGS 2015. VENTRAL HERNIA REPAIR 07/2016, Past Anesthesia/Blood Transfusion Reactions: Previous Problems w/ Anesthesia Additional Past Anesthesia/Blood Transfusion Reaction / Comment(s): 1985 DURING T&A SURG, DEVELOPED FLUID IN LUNGS, PUT ON VENT. Past Psychological History: ADD/ADHD, Anxiety, Bipolar, Depression Smoking Status: Current every day smoker Past Alcohol Use History: None Reported Past Drug Use History: None Reported - Past Family History Mother Family Medical History: No Reported History Additional Family Medical History / Comment(s): PT STATED MOM IS HEALTHY Father Family Medical History: Cancer Additional Family Medical History / Comment(s): LYMPHOMA Medications and Allergies Home Medications Medication Instructions Recorded Confirmed Type lamoTRIgine [LaMICtal] 200 mg PO BID 04/21/15 04/25/18 History Desvenlafaxine Succinate [Pristiq 50 mg PO QAM 03/06/16 04/25/18 History ER] Lisinopril [Zestril] 20 mg PO QAM 03/06/16 04/25/18 History Methylphenidate HCl [Ritalin] 20 mg PO BID 03/06/16 04/25/18 History QUEtiapine FUMARATE [SEROquel] 600 mg PO HS 03/06/16 04/25/18 History clonazePAM [KlonoPIN] 1 mg PO BID 03/06/16 04/25/18 History buPROPion HCL [Wellbutrin XL] 300 mg PO QAM 07/16/16 04/25/18 History Atorvastatin Calcium [Lipitor] 20 mg PO DAILY 09/19/16 04/25/18 History Budesonide-Formot 160-4.5 Mcg 2 puff INHALATION RT-BID 10/29/16 04/25/18 History [Symbicort 160-4.5 Mcg Inhaler] Montelukast Sodium [Singulair] 10 mg PO QAM 10/29/16 04/25/18 History Omeprazole 40 mg PO AC-BRKFST 10/29/16 04/25/18 History Butalb/Acetaminophen/Caffeine 1 tab PO Q8H PRN 04/25/18 04/25/18 History [Fioricet 50-325-40] Donepezil [Aricept] 10 mg PO HS 04/25/18 04/25/18 History HYDROcodone/APAP 7.5-325MG [[place] 1 tab PO TID 04/25/18 04/25/18 History 7.5-325] Zonisamide [Zonegran] 200 mg PO HS 04/25/18 04/25/18 History amLODIPine BESYLATE [Norvasc] 2.5 mg PO DAILY 04/25/18 04/25/18 History Allergies Allergy/AdvReac Type Severity Reaction Status Date / Time No Known Allergies Allergy Verified 04/25/18 09:57 Physical Exam Vitals: Vital Signs Temp Pulse Pulse Resp BP BP Pulse Ox 04/25/18 15:05 98.2 F 86 16 120/81 98 04/25/18 13:45 99.4 F 89 18 124/87 98 04/25/18 09:20 97.8 F 83 18 141/75 99 Intake and Output 04/25/18 04/25/18 04/25/18 06:59 14:59 22:59 Other: Weight 81.647 kg 82.1 kg General: [non toxic], [no distress], [appears at stated age] Derm: [warm], [dry] Head: [atraumatic], [normocephalic], [symmetric] Eyes: [EOMI], [no lid lag], [anicteric sclera] Mouth: [no lip lesion], [mucus membranes moist] Cardiovascular: [S1S2 reg], [no murmur], [positive DP pulse bilateral] Lungs: [CTA bilateral], [no rhonchi, no rales] , [no accessory muscle use] Abdominal: [soft], [ nontender to palpation], [no guarding], [no appreciable organomegaly] Ext: [no gross muscle atrophy], [no edema], [no contractures] Neuro: [ CN II-XI grossly intact], [no focal neuro deficits] Psych: [Alert], [oriented], [appropriate affect] Cranial Nerve Examination - Cranial Nerves Cranial Nerve II- Optic: Intact Cranial Nerve III- Oculomotor: Intact Cranial Nerve IV- Trochlear: Intact Cranial Nerve V- Trigeminal: Intact Cranial Nerve - Abducens: Intact Cranial Nerve VII- Facial: Intact Cranial Nerve VIII- Auditory: Intact Cranial Nerve IX- Glossopharyngeal: Intact Cranial Nerve X- Vagus: Intact Cranial Nerve XI- Accessory: Intact Cranial Nerve XII- Hypoglossal: Intact Results Labs: Abnormal Lab Results - Last 24 Hours (Table) 04/25/18 Range/Units 10:10 Ur Barbiturates Screen Detected H (NotDetected) U Tricyclic Antidepress Detected H (NotDetected) U Marijuana (THC) Screen Detected H (NotDetected) Assessment and Plan Assessment: Assessment and Plan 1. Chronic lower back pain due to L1 L3 compression fracture 2. Nausea and vomiting with diarrhea 3. Headache 4. Suicidal ideations 5. Hypertension 6. COPD 7. Hypothyroidism 8. Seizure disorder 9. Hyperlipidemia 1. Pain control with Tylenol 650 mg by mouth every 4 hours as needed. Patient would benefit from restarting Vicodin if he does have a pain contract with his pain clinic. 2. Appears like gastroenteritis versus benzodiazepine withdrawal. Symptoms have largely resolved. Would recommend Ativan as needed for anxiety. 3. Possibly stress-induced or withdrawal from opiates. I would recommend restarting his Vicodin if he has a pain contract with his pain clinic. Otherwise, we will control his pain with Tylenol as needed. 4. Management as per psych. 5. BP 120/81. Start amlodipine 2.5 mg by mouth daily, lisinopril 20 mg by mouth daily. Monitor vitals, adjust medications as necessary. 6. Stable. Restart Symbicort 2 puffs twice a day, Singulair 10 mg by mouth daily. DuoNeb every 4 hours as needed for shortness of breath or wheezing. 7. Not all medications at home. Will follow TSH. 8. Restart Lamictal and Zonegran. Last seizure was one and a half to 2 years ago. Diagnoses seizures 4-5 years ago, unknown cause. Seizure precautions. 9. Continue Lipitor 20 mg by mouth daily. We will follow lipid panel. Thank you for allowing us to participate in the care of this patient. Please feel free to contact us with any additional questions.
[2018-04-25] MEDS: SYMBICORT 160-4.5 MCG INHALER INHALATION SCH (18:35)
[2018-04-25] MEDS: QUEtiapine 200 MG TAB PO SCH (20:40)
[2018-04-25] MEDS: lamoTRIgine 100 MG TAB PO SCH (20:40)
[2018-04-25] MEDS: ZONISAMIDE 100 MG CAP PO SCH (21:04)
[2018-04-26] MEDS: lamoTRIgine 100 MG TAB PO SCH ×2 (08:35→20:10)
[2018-04-26] MEDS: NICOTINE 14MG/24HR PATCH TRANSDERM SCH (08:35)
[2018-04-26] MEDS: ATORVASTATIN 20 MG TAB PO SCH (08:35)
[2018-04-26] MEDS: LISINOPRIL 20 MG TAB PO SCH (08:35)
[2018-04-26] MEDS: MONTELUKAST 10 MG TAB PO SCH (08:35)
[2018-04-26] MEDS: PANTOPRAZOLE 40 MG TABLET PO SCH (08:35)
[2018-04-26] MEDS: amLODIPine 2.5 MG TAB PO SCH (08:35)
[2018-04-26] MEDS ORDERED: DESVENLAFAXINE SUCCINATE 50 MG TAB.ER.24H PO SCH (09:00)
[2018-04-26] MEDS: SYMBICORT 160-4.5 MCG INHALER INHALATION SCH ×2 (09:34→20:51)
[2018-04-26] MEDS ORDERED: DIAZEPAM 5 MG TAB PO STA (13:23)
--- NOTE | 2018-04-26 13:24 | P.HP ---
Psychiatric H&P - . H&P Date: 04/26/18 History & Physical: Allergies Allergy/AdvReac Type Severity Reaction Status Date / Time No Known Allergies Allergy Verified 04/25/18 09:57 Vital Signs Temp 97.7 F 04/26/18 06:31 Pulse 86 04/26/18 08:42 Resp 18 04/26/18 08:42 BP 128/73 04/26/18 08:42 Pulse Ox 98 04/25/18 15:05 Intake & Output 04/25/18 04/26/18 04/26/18 18:59 06:59 18:59 Weight 82.1 kg Laboratory Last Values Urine Opiates Screen Not Detected (NotDetected) 04/25/18 10:10 Ur Oxycodone Screen Not Detected (NotDetected) 04/25/18 10:10 Urine Methadone Screen Not Detected (NotDetected) 04/25/18 10:10 Ur Propoxyphene Screen Not Detected (NotDetected) 04/25/18 10:10 Ur Barbiturates Screen Detected (NotDetected) H 04/25/18 10:10 U Tricyclic Antidepress Detected (NotDetected) H 04/25/18 10:10 Ur Phencyclidine Scrn Not Detected (NotDetected) 04/25/18 10:10 Ur Amphetamines Screen Not Detected (NotDetected) 04/25/18 10:10 U Methamphetamines Scrn Not Detected (NotDetected) 04/25/18 10:10 U Benzodiazepines Scrn Not Detected (NotDetected) 04/25/18 10:10 Urine Cocaine Screen Not Detected (NotDetected) 04/25/18 10:10 U Marijuana (THC) Screen Detected (NotDetected) H 04/25/18 10:10 pt states he has been having suicidal thoughts, severe depression for a little bit; states his physician discontinued all of his medications and thats when the thoughts have gotten worse; states he is having visual and auditory hallucinations - states he tried shaking someone's hand that was not there [ End ] Assessment and Plan Assessment: 52-year-old male with PMH of hypertension, hyperlipidemia, GERD, COPD, sleep apnea, hypothyroidism and seizure disorder, history of MRSA infection presents to the ED for suicidal ideations. Patient reports multiple episodes of nonbilious nonbloody nausea and vomiting along with diarrhea for the past 3-4 days. Patient reports that his psychiatrist would not refill his Klonopin prescription, causing him to have withdrawals. His symptoms have resolved since. Patient also reports chronic lower back pain. Patient reports and L1 and L3 compression fracture after falling off a roof in December 2002. There is no surgery involved. Patient is currently working with physical therapy and receives pain control through a pain specialist. He takes Vicodin 3 times a day for his pain. He denies any bladder or bowel incontinence, saddle anesthesia. Patient also reports chronic headache. He describes the headache as a tight band around his head. He denies any stiff neck or photophobia. No fever or chills. Otherwise, patient denies lower extremity edema, cough, chest pain, shortness of breath, palpitations, changes in urination or bowel habits. No changes in appetite or weight. P Medications and Allergies Home Medications Medication Instructions Recorded Confirmed Type lamoTRIgine [LaMICtal] 200 mg PO BID 04/21/15 04/25/18 History Desvenlafaxine Succinate [Pristiq 50 mg PO QAM 03/06/16 04/25/18 History ER] Lisinopril [Zestril] 20 mg PO QAM 03/06/16 04/25/18 History Methylphenidate HCl [Ritalin] 20 mg PO BID 03/06/16 04/25/18 History QUEtiapine FUMARATE [SEROquel] 600 mg PO HS 03/06/16 04/25/18 History clonazePAM [KlonoPIN] 1 mg PO BID 03/06/16 04/25/18 History buPROPion HCL [Wellbutrin XL] 300 mg PO QAM 07/16/16 04/25/18 History Atorvastatin Calcium [Lipitor] 20 mg PO DAILY 09/19/16 04/25/18 History Budesonide-Formot 160-4.5 Mcg 2 puff INHALATION RT-BID 10/29/16 04/25/18 History [Symbicort 160-4.5 Mcg Inhaler] Montelukast Sodium [Singulair] 10 mg PO QAM 10/29/16 04/25/18 History Omeprazole 40 mg PO AC-BRKFST 10/29/16 04/25/18 History Butalb/Acetaminophen/Caffeine 1 tab PO Q8H PRN 04/25/18 04/25/18 History [Fioricet 50-325-40] Donepezil [Aricept] 10 mg PO HS 04/25/18 04/25/18 History HYDROcodone/APAP 7.5-325MG [[place] 1 tab PO TID 04/25/18 04/25/18 History 7.5-325] Zonisamide [Zonegran] 200 mg PO HS 04/25/18 04/25/18 History amLODIPine BESYLATE [Norvasc] 2.5 mg PO DAILY 04/25/18 04/25/18 History Allergies Allergy/AdvReac Type Severity Reaction Status Date / Time No Known Allergies Allergy Verified 04/25/18 09:57 Chief Complaint: [Severe anxiety with depression and suicidal thoughts he is admitted on a formal voluntary to [address] [place] [address]] History of Present Illness: [This is a 52-year-old male who was recently stopped on his Klonopin and is now feeling suicidal homicidal and came the emergency room for help.] Past Psychiatric History: [He sees a psychiatrist and was stopped on his medications of Klonopin and now he feels extremely anxious and in withdrawal] ast Medical History Past Medical History: COPD, GERD/Reflux, Hyperlipidemia, Hypertension, Musculoskeletal Disorder, Pneumonia, Respiratory Disorder, Seizure Disorder, Skin Disorder, Sleep Apnea/CPAP/BIPAP, Thyroid Disorder Additional Past Medical History / Comment(s): FREQUENT VOMITING, HX ABSCESSES LEGS with MRSA, CELLULTIS. HX SEIZURE X2, 2011, BIT PART OF TONGUE OFF. NOT ABLE TO USE BIPAP. OLD FX BACK, 2002. HX MRSA Neck/Face/RT THIGH/LT CALF. ENLARGED HEART. CHRONIC BRONCHITIS. "past compression fx l1" History of Any Multi-Drug Resistant Organisms: MRSA Date of last positivie culture/infection: 03/07/16 MDRO Source:: LEFT LEG Past Surgical History: Adenoidectomy, Appendectomy, Cholecystectomy, Heart Catheterization, Hernia Repair, Tonsillectomy Additional Past Surgical History / Comment(s): ABD HERNIA SURG X3; LAP BAND 2009 EST. 06-15-14 LAP REMOVAL OF LAP BAND AND PORT. COLONOSCOPY, EGD. EXC Areas of MRSA on face, neck, LEGS 2015. VENTRAL HERNIA REPAIR 07/2016, Past Anesthesia/Blood Transfusion Reactions: Previous Problems w/ Anesthesia Additional Past Anesthesia/Blood Transfusion Reaction / Comment(s): 1984 DURING T&A SURG, DEVELOPED FLUID IN LUNGS, PUT ON VENT. Past Psychological History: ADD/ADHD, Anxiety, Bipolar, Depression Smoking Status: Current every day smoker Past Alcohol Use History: None Reported Past Drug Use History: None Reported FREQUENT VOMITING, HX ABSCESSES LEGS with MRSA, CELLULTIS. HX SEIZURE X2, 2011, BIT PART OF TONGUE OFF. NOT ABLE TO USE BIPAP. OLD FX BACK, 2002. HX MRSA Neck/Face/RT THIGH/LT CALF. ENLARGED HEART. CHRONIC BRONCHITIS. "past compression fx l1 - Past Family History Mother Family Medical History: No Reported History Additional Family Medical History / Comment(s): PT STATED MOM IS HEALTHY Father Family Medical History: Cancer Additional Family Medical History / Comment(s): LYMPHOMA Musculoskeletal Examination - Abnormal/Involuntary Movements: [ tremors] Strength: [greater than antigravity (greater than/equal to 3/5) in all extremities,] Muscle Tone: [no impairment,] Gait: [grossly normal, Station: [grossly normal, Mental Status Examination - General Appearance: [casual, appears stated age Speech/Language: [ slow,expressive, soft] Attitude/Behavior: [cooperative, guarded] Mood: [ depressed 6 out of 10, anxious 10 out of 10 anxiety, fearful, hopelessness Affect: [full range, lively, flat, incongruent, labile, blunted constricted, other] Orientation: [time, person, place situation] Thought Content: [wnl Risk Factors: [He is suicidal (ideations, plan), and/or Homicidal (ideations, plan), other] Perception: [wnl, denies hallucinations (auditory, visual, tactile), other] Thought Processes: [goal-oriented he wants help and he does not feel good at the present time Concentration/Attention Span: [wnl] [Per observation and interview with the patient] Recent Memory: [wnl 3 out of 3 in 3 minutes] Remote Memory: [wnl] [past events, as related history] Intelligence: [average] [based on history, based on vocabulary, syntax, grammar , and content] Judgement: [good [per patient's behavior/history of present illness] Insight: [good] [understanding severity of illness/history of present illness] Admitting Diagnosis: [Major depressive disorder severe anxiety and withdrawal from Klonopin] Patient Strengths - Steady employment/financial stability: [] Housing stability: [x] Able to vocalize needs: [x] Values and traditions: [x] Motivation, determination, readiness for change: [x] Setting and pursuing goals, hopes, dreams, aspirations: [x] Patient Limitations: [medication, Initial Plan of Care: [He was admitted formal voluntary to [address] [place] [address] Enma Baker and signed paperwork. He'll be placed on 15 minute checks and usual [facility] protocol. He'll be evaluated by medicine, psychiatry, nursing staff, social work and occupational therapy. He was stopped and his Klonopin was given 1 dose of Valium 5 mg to help him withdraw from the Klonopin. I'll increase his Pristiq to 100 mg by mouth daily at bedtime to aid in his depression and anxiety. He will be expected to go to [facility] therapeutic groups and take his medications as indicated. Appears to be very reliable historian and is struggling at the current time.] Estimated Length of Stay: [5 days] Initial Discharge Plan: [home Prognosis: [good] Justification for Inpatient Hospitalization - [ agitation, anxiety, depression resulting in significant loss of functioning.] [Dangerous to self with need for controlled environment.] [Emotional or behavioral conditions and complications requiring 24 hour medical and nursing care.] [Need for special drug therapy, or other therapeutic program requiring continuous hospitalization.] [Failure of social or occupational functioning.] [Inability to meet basic life and health needs.] [ (1) Major depressive disorder with current active episode Current Visit: Yes Status: Acute Priority: High Code(s): F32.9 - MAJOR DEPRESSIVE DISORDER, SINGLE EPISODE, UNSPECIFIED SNOMED Code(s): 066990812 (2) Suicidal ideation Current Visit: Yes Status: Acute Priority: High Code(s): R45.851 - SUICIDAL IDEATIONS SNOMED Code(s): 3025015 Time with Patient: Less than 30
[2018-04-26] MEDS: ACETAMINOPHEN TAB 325 MG TAB PO PRN (19:15)
[2018-04-26] MEDS: QUEtiapine 200 MG TAB PO SCH (20:09)
[2018-04-26] MEDS: DESVENLAFAXINE SUCCINATE 50 MG TAB.ER.24H PO SCH (20:09)
[2018-04-26] MEDS: ZONISAMIDE 100 MG CAP PO SCH (20:09)
[2018-04-27 07:06] VITALS: RESP 16; TEMP 97.8
[2018-04-27] MEDS: PANTOPRAZOLE 40 MG TABLET PO SCH (08:50)
[2018-04-27] MEDS: amLODIPine 2.5 MG TAB PO SCH (08:50)
[2018-04-27] MEDS: ATORVASTATIN 20 MG TAB PO SCH (08:51)
[2018-04-27] MEDS: LISINOPRIL 20 MG TAB PO SCH (08:53)
[2018-04-27] MEDS: lamoTRIgine 100 MG TAB PO SCH ×2 (08:53→20:32)
[2018-04-27] MEDS: MONTELUKAST 10 MG TAB PO SCH (08:53)
[2018-04-27] MEDS: NICOTINE 14MG/24HR PATCH TRANSDERM SCH (08:55)
[2018-04-27 09:05] LABS: Basophils % (A) 1 %; Eosinophils # (A) 0.1 k/uL (0-0.7); Eosinophils % (A) 3 %; HCT 44.1 % (39.0-53.0); HGB 13.7 gm/dL (13.0-17.5); Lymphocytes # (A) 2.1 k/uL (1.0-4.8); Lymphocytes % (A) 36 %; MCH 28.3 pg (25.0-35.0); MCHC 31.1 g/dL (31.0-37.0); Mean Platelet Volume 7.6; Monocytes # (A) 0.3 k/uL (0-1.0); Monocytes % (A) 6 %; Neutrophils % (A) 53 %; Platelet Count 175 k/uL (150-450); RBC 4.85 m/uL (4.30-5.90); RDW 13.2 % (11.5-15.5); WBC 5.7 k/uL (3.8-10.6)
[2018-04-27 09:12] LABS: Albumin 4.2 g/dL (3.5-5.0); Bilirubin, Delta 0.1 mg/dL (0.0-0.2); Bilirubin,Unconjugated 0.5 mg/dL (0.0-1.1); Calcium 9.3 mg/dL (8.4-10.2); Potassium 3.7 mmol/L (3.5-5.1); Total Bilirubin 0.6 mg/dL (0.2-1.3); Total Protein 6.8 g/dL (6.3-8.2)
[2018-04-27] MEDS: ACETAMINOPHEN TAB 325 MG TAB PO PRN ×2 (09:19→20:33)
[2018-04-27] MEDS: SYMBICORT 160-4.5 MCG INHALER INHALATION SCH ×2 (09:37→19:44)
--- NOTE | 2018-04-27 11:50 | P.PN ---
Subjective Progress Note Date: 04/27/18 Principal diagnosis: Major depressive disorder severe anxiety and withdrawal from Klonopin I still feel anxious and have difficulty with sleep and still feel anxious. Denies any suicidal ideation or homicidal ideation Objective - Vital Signs Vital signs: Vital Signs Temp 97.8 F 04/27/18 06:16 Pulse 70 04/27/18 06:16 Resp 16 04/27/18 06:16 BP 137/84 04/27/18 06:16 Pulse Ox 98 04/25/18 15:05 - Labs CBC & Chem 7: 04/27/18 08:07 04/27/18 08:07 Labs: Abnormal Lab Results - Last 24 Hours (Table) 04/27/18 Range/Units 08:07 Creatinine 1.34 H (0.66-1.25) mg/dL Triglycerides 217 H (<150) mg/dL Assessment and Plan Assessment: 52-year-old male with PMH of hypertension, hyperlipidemia, GERD, COPD, sleep apnea, hypothyroidism and seizure disorder, history of MRSA infection presents to the ED for suicidal ideations. Patient reports multiple episodes of nonbilious nonbloody nausea and vomiting along with diarrhea for the past 3-4 days. Patient reports that his psychiatrist would not refill his Klonopin prescription, causing him to have withdrawals. His symptoms have resolved since. Patient also reports chronic lower back pain. Patient reports and L1 and L3 compression fracture after falling off a roof in December 2002. There is no surgery involved. Patient is currently working with physical therapy and receives pain control through a pain specialist. He takes Vicodin 3 times a day for his pain. He denies any bladder or bowel incontinence, saddle anesthesia. Patient also reports chronic headache. He describes the headache as a tight band around his head. He denies any stiff neck or photophobia. No fever or chills. Otherwise, patient denies lower extremity edema, cough, chest pain, shortness of breath, palpitations, changes in urination or bowel habits. No changes in appetite or weight. P Medications and Allergies Home Medications Medication Instructions Recorded Confirmed Type lamoTRIgine [LaMICtal] 200 mg PO BID 04/21/15 04/25/18 History Desvenlafaxine Succinate [Pristiq 50 mg PO QAM 03/06/16 04/25/18 History ER] Lisinopril [Zestril] 20 mg PO QAM 03/06/16 04/25/18 History Methylphenidate HCl [Ritalin] 20 mg PO BID 03/06/16 04/25/18 History QUEtiapine FUMARATE [SEROquel] 600 mg PO HS 03/06/16 04/25/18 History clonazePAM [KlonoPIN] 1 mg PO BID 03/06/16 04/25/18 History buPROPion HCL [Wellbutrin XL] 300 mg PO QAM 07/16/16 04/25/18 History Atorvastatin Calcium [Lipitor] 20 mg PO DAILY 09/19/16 04/25/18 History Budesonide-Formot 160-4.5 Mcg 2 puff INHALATION RT-BID 10/29/16 04/25/18 History [Symbicort 160-4.5 Mcg Inhaler] Montelukast Sodium [Singulair] 10 mg PO QAM 10/29/16 04/25/18 History Omeprazole 40 mg PO AC-BRKFST 10/29/16 04/25/18 History Butalb/Acetaminophen/Caffeine 1 tab PO Q8H PRN 04/25/18 04/25/18 History [Fioricet 50-325-40] Donepezil [Aricept] 10 mg PO HS 04/25/18 04/25/18 History HYDROcodone/APAP 7.5-325MG [[place] 1 tab PO TID 04/25/18 04/25/18 History 7.5-325] Zonisamide [Zonegran] 200 mg PO HS 04/25/18 04/25/18 History amLODIPine BESYLATE [Norvasc] 2.5 mg PO DAILY 04/25/18 04/25/18 History Allergies Allergy/AdvReac Type Severity Reaction Status Date / Time No Known Allergies Allergy Verified 04/25/18 09:57 Chief Complaint: [Severe anxiety with depression and suicidal thoughts he is admitted on a formal voluntary to [facility]] History of Present Illness: [This is a 52-year-old male who was recently stopped on his Klonopin and is now feeling suicidal homicidal and came the emergency room for help.] Past Psychiatric History: [He sees a psychiatrist and was stopped on his medications of Klonopin and now he feels extremely anxious and in withdrawal] ast Medical History Past Medical History: COPD, GERD/Reflux, Hyperlipidemia, Hypertension, Musculoskeletal Disorder, Pneumonia, Respiratory Disorder, Seizure Disorder, Skin Disorder, Sleep Apnea/CPAP/BIPAP, Thyroid Disorder Additional Past Medical History / Comment(s): FREQUENT VOMITING, HX ABSCESSES LEGS with MRSA, CELLULTIS. HX SEIZURE X2, 2011, BIT PART OF TONGUE OFF. NOT ABLE TO USE BIPAP. OLD FX BACK, 2002. HX MRSA Neck/Face/RT THIGH/LT CALF. ENLARGED HEART. CHRONIC BRONCHITIS. "past compression fx l1" History of Any Multi-Drug Resistant Organisms: MRSA Date of last positivie culture/infection: 03/07/16 MDRO Source:: LEFT LEG Past Surgical History: Adenoidectomy, Appendectomy, Cholecystectomy, Heart Catheterization, Hernia Repair, Tonsillectomy Additional Past Surgical History / Comment(s): ABD HERNIA SURG X3; LAP BAND 2009 EST. 06-15-14 LAP REMOVAL OF LAP BAND AND PORT. COLONOSCOPY, EGD. EXC Areas of MRSA on face, neck, LEGS 2016. VENTRAL HERNIA REPAIR 07/2016, Past Anesthesia/Blood Transfusion Reactions: Previous Problems w/ Anesthesia Additional Past Anesthesia/Blood Transfusion Reaction / Comment(s): 1985 DURING T&A SURG, DEVELOPED FLUID IN LUNGS, PUT ON VENT. Past Psychological History: ADD/ADHD, Anxiety, Bipolar, Depression Smoking Status: Current every day smoker Past Alcohol Use History: None Reported Past Drug Use History: None Reported FREQUENT VOMITING, HX ABSCESSES LEGS with MRSA, CELLULTIS. HX SEIZURE X2, 2011, BIT PART OF TONGUE OFF. NOT ABLE TO USE BIPAP. OLD FX BACK, 2002. HX MRSA Neck/Face/RT THIGH/LT CALF. ENLARGED HEART. CHRONIC BRONCHITIS. "past compression fx l1 - Past Family History Mother Family Medical History: No Reported History Additional Family Medical History / Comment(s): PT STATED MOM IS HEALTHY Father Family Medical History: Cancer Additional Family Medical History / Comment(s): LYMPHOMA Musculoskeletal Examination - Abnormal/Involuntary Movements: [ tremors] Strength: [greater than antigravity (greater than/equal to 3/5) in all extremities,] Muscle Tone: [no impairment,] Gait: [grossly normal, Station: [grossly normal, Mental Status Examination - General Appearance: [casual, appears stated age Speech/Language: [ slow,expressive, soft] Attitude/Behavior: [cooperative, guarded] Mood: [ depressed 6 out of 10, anxious 10 out of 10 anxiety, fearful, hopelessness Affect: [full range, lively, flat, incongruent, labile, blunted constricted, other] Orientation: [time, person, place situation] Thought Content: [wnl Risk Factors: [He is suicidal (ideations, plan), and/or Homicidal (ideations, plan), other] Perception: [wnl, denies hallucinations (auditory, visual, tactile), other] Thought Processes: [goal-oriented he wants help and he does not feel good at the present time Concentration/Attention Span: [wnl] [Per observation and interview with the patient] Recent Memory: [wnl 3 out of 3 in 3 minutes] Remote Memory: [wnl] [past events, as related history] Intelligence: [average] [based on history, based on vocabulary, syntax, grammar , and content] Judgement: [good [per patient's behavior/history of present illness] Insight: [good] [understanding severity of illness/history of present illness] Admitting Diagnosis: [Major depressive disorder severe anxiety and withdrawal from Klonopin] Patient Strengths - Steady employment/financial stability: [] Housing stability: [x] Able to vocalize needs: [x] Values and traditions: [x] Motivation, determination, readiness for change: [x] Setting and pursuing goals, hopes, dreams, aspirations: [x] Patient Limitations: [medication, Initial Plan of Care: [He was admitted formal voluntary to [address] [place] [address] and signed paperwork. He'll be placed on 15 minute checks and usual [facility] protocol. He'll be evaluated by medicine, psychiatry, nursing staff, social work and occupational therapy. He was stopped and his Klonopin was given 1 dose of Valium 5 mg to help him withdraw from the Klonopin. I'll increase his Pristiq to 100 mg by mouth daily at bedtime to aid in his depression and anxiety. He will be expected to go to [facility] therapeutic groups and take his medications as indicated. Appears to be very reliable historian and is struggling at the current time. Will add today 04/27/2018 Seroquel 25 mg by mouth twice a day in addition to a 600 mg at night] Estimated Length of Stay: [4 days] Initial Discharge Plan: [home Prognosis: [good] Justification for Inpatient Hospitalization - [ agitation, anxiety, depression resulting in significant loss of functioning.] [Dangerous to self with need for controlled environment.] [Emotional or behavioral conditions and complications requiring 24 hour medical and nursing care.] [Need for special drug therapy, or other therapeutic program requiring continuous hospitalization.] [Failure of social or occupational functioning.] [Inability to meet basic life and health needs.] [ (1) Major depressive disorder with current active episode Current Visit: Yes Status: Acute Priority: High Code(s): F32.9 - MAJOR DEPRESSIVE DISORDER, SINGLE EPISODE, UNSPECIFIED SNOMED Code(s): 807934556 (2) Suicidal ideation Current Visit: Yes Status: Acute Priority: High Code(s): R45.851 - SUICIDAL IDEATIONS SNOMED Code(s): 7797938 Time with Patient: Less than 30
[2018-04-27] MEDS: DESVENLAFAXINE SUCCINATE 50 MG TAB.ER.24H PO SCH (20:31)
[2018-04-27] MEDS: QUEtiapine 200 MG TAB PO SCH (20:32)
[2018-04-27] MEDS: ZONISAMIDE 100 MG CAP PO SCH (20:32)
[2018-04-27] MEDS: QUEtiapine 25 MG TAB PO SCH (20:32)
[2018-04-28 07:27] VITALS: BP 114/71; PULSE 68
[2018-04-28] MEDS: ATORVASTATIN 20 MG TAB PO SCH (08:12)
[2018-04-28] MEDS: MONTELUKAST 10 MG TAB PO SCH (08:12)
[2018-04-28] MEDS: QUEtiapine 25 MG TAB PO SCH (08:12)
[2018-04-28] MEDS: PANTOPRAZOLE 40 MG TABLET PO SCH (08:12)
[2018-04-28] MEDS: NICOTINE 14MG/24HR PATCH TRANSDERM SCH (08:12)
[2018-04-28] MEDS: amLODIPine 2.5 MG TAB PO SCH (08:12)
[2018-04-28] MEDS: LISINOPRIL 20 MG TAB PO SCH (08:12)
[2018-04-28] MEDS: lamoTRIgine 100 MG TAB PO SCH (08:13)
[2018-04-28] MEDS: SYMBICORT 160-4.5 MCG INHALER INHALATION SCH (09:20)
[2018-04-28 11:56] LABS: Hemoglobin A1C 5.5 % (4.0-6.0)
--- NOTE | 2018-04-28 12:32 | P.DS ---
Providers Date of admission: 04/25/18 13:37 Expected date of discharge: 04/28/18 Attending physician: Brian Handy DO Consults: 04/25/18 14:22 Consult Physician Routine Consulting Provider: Rashel Buckley Consult Reason/Comments: H & P and medical care Do you want consulting provider notified?: Yes Primary care physician: Lcoo Carson - Discharge Diagnosis(es) (1) Major depressive disorder with current active episode 52-year-old male with PMH of hypertension, hyperlipidemia, GERD, COPD, sleep apnea, hypothyroidism and seizure disorder, history of MRSA infection presents to the ED for suicidal ideations. Patient reports multiple episodes of nonbilious nonbloody nausea and vomiting along with diarrhea for the past 3-4 days. Patient reports that his psychiatrist would not refill his Klonopin prescription, causing him to have withdrawals. His symptoms have resolved since. Patient also reports chronic lower back pain. Patient reports and L1 and L3 compression fracture after falling off a roof in December 2002. There is no surgery involved. Patient is currently working with physical therapy and receives pain control through a pain specialist. He takes Vicodin 3 times a day for his pain. He denies any bladder or bowel incontinence, saddle anesthesia. Patient also reports chronic headache. He describes the headache as a tight band around his head. He denies any stiff neck or photophobia. No fever or chills. Otherwise, patient denies lower extremity edema, cough, chest pain, shortness of breath, palpitations, changes in urination or bowel habits. No changes in appetite or weight. P Medications and Allergies Home Medications Medication Instructions Recorded Confirmed Type lamoTRIgine [LaMICtal] 200 mg PO BID 04/21/15 04/25/18 History Desvenlafaxine Succinate [Pristiq 50 mg PO QAM 03/06/16 04/25/18 History ER] Lisinopril [Zestril] 20 mg PO QAM 03/06/16 04/25/18 History Methylphenidate HCl [Ritalin] 20 mg PO BID 03/06/16 04/25/18 History QUEtiapine FUMARATE [SEROquel] 600 mg PO HS 03/06/16 04/25/18 History clonazePAM [KlonoPIN] 1 mg PO BID 03/06/16 04/25/18 History buPROPion HCL [Wellbutrin XL] 300 mg PO QAM 04/10/17 01/18/19 History Atorvastatin Calcium [Lipitor] 20 mg PO DAILY 09/19/16 04/25/18 History Budesonide-Formot 160-4.5 Mcg 2 puff INHALATION RT-BID 10/29/16 04/25/18 History [Symbicort 160-4.5 Mcg Inhaler] Montelukast Sodium [Singulair] 10 mg PO QAM 10/29/16 04/25/18 History Omeprazole 40 mg PO AC-BRKFST 10/29/16 04/25/18 History Butalb/Acetaminophen/Caffeine 1 tab PO Q8H PRN 04/25/18 04/25/18 History [Fioricet 50-325-40] Donepezil [Aricept] 10 mg PO HS 04/25/18 04/25/18 History HYDROcodone/APAP 7.5-325MG [[place] 1 tab PO TID 04/25/18 04/25/18 History 7.5-325] Zonisamide [Zonegran] 200 mg PO HS 04/25/18 04/25/18 History amLODIPine BESYLATE [Norvasc] 2.5 mg PO DAILY 04/25/18 04/25/18 History Allergies Allergy/AdvReac Type Severity Reaction Status Date / Time No Known Allergies Allergy Verified 04/25/18 09:57 Chief Complaint: [Severe anxiety with depression and suicidal thoughts he is admitted on a formal voluntary to [address] [place] [address]] History of Present Illness: [This is a 52-year-old male who was recently stopped on his Klonopin and is now feeling suicidal homicidal and came the emergency room for help.] Past Psychiatric History: [He sees a psychiatrist and was stopped on his medications of Klonopin and now he feels extremely anxious and in withdrawal] Current Visit: Yes Status: Acute Priority: Low (2) Suicidal ideation Current Visit: Yes Status: Acute Priority: Low Hospital Course: Plan of Care: [He was admitted formal voluntary to [address] [place] [address] and signed paperwork. He'll be placed on 15 minute checks and usual [facility] protocol. He'll be evaluated by medicine, psychiatry, nursing staff, social work and occupational therapy. He was stopped and his Klonopin was given 1 dose of Valium 5 mg to help him withdraw from the Klonopin. I'll increase his Pristiq to 100 mg by mouth daily at bedtime to aid in his depression and anxiety. He will be expected to go to [facility] therapeutic groups and take his medications as indicated. Appears to be very reliable historian and is struggling at the current time. Will add today 2018 Seroquel 25 mg by mouth twice a day in addition to a 600 mg at night] Mental status examination time of discharge: The patient presents alert, pleasant, and cooperative. There calmly seated without any agitated behavior. [He] reports that [his] mood is good. Affect is congruent and euthymic. [He] deny having any suicidal or homicidal ideation intent or plan. [He] denies any auditory or visual hallucinations. There is no evidence of any delusional thought content. [His] thought process is linear and goal-directed. [His] speech is fluent and nonpressured. [His] memory and concentration is grossly intact for the purposes of this session. He does state that he still has some anxiety disorder crushing chest but it's not to the point wants to harm himself and he is competent that his outpatient psychiatrist will help him further. He was withdrawn and had 1 dose of Valium couple withdraw from Klonopin and then added Seroquel 25 mg by mouth twice a day as well as to 600 mg at nighttime. He was also increased on his Pristiq 200 mg by mouth daily. Patient Condition at Discharge: Stable Plan - Discharge Summary Discharge Rx Participant: Yes New Discharge Prescriptions: New Desvenlafaxine Succinate [Pristiq ER] 100 mg PO 2100 30 Days #60 tab.er.24h Ipratropium-Albuterol Nebulize [Duoneb 0.5 mg-3 mg/3 ml Soln] 3 ml INHALATION RT-TID PRN ampul.neb PRN Reason: Shortness Of Breath Or Wheezing QUEtiapine [SEROquel] 25 mg PO BID 30 Days #60 tab Continue lamoTRIgine [LaMICtal] 200 mg PO BID QUEtiapine FUMARATE [SEROquel] 600 mg PO HS Atorvastatin Calcium [Lipitor] 20 mg PO DAILY Montelukast Sodium [Singulair] 10 mg PO QAM Budesonide-Formot 160-4.5 Mcg [Symbicort 160-4.5 Mcg Inhaler] 2 puff INHALATION RT-BID Omeprazole 40 mg PO AC-BRKFST amLODIPine BESYLATE [Norvasc] 2.5 mg PO DAILY Donepezil [Aricept] 10 mg PO HS Butalb/Acetaminophen/Caffeine [Fioricet 50-325-40] 1 tab PO Q8H PRN PRN Reason: Headache Zonisamide [Zonegran] 200 mg PO HS HYDROcodone/APAP 7.5-325MG [[place] 7.5-325] 1 tab PO TID buPROPion HCL [Wellbutrin XL] 300 mg PO QAM 30 Days #30 tab.er.24h Discontinued Lisinopril [Zestril] 20 mg PO QAM clonazePAM [KlonoPIN] 1 mg PO BID Methylphenidate HCl [Ritalin] 20 mg PO BID Desvenlafaxine Succinate [Pristiq ER] 50 mg PO QAM Discharge Medication List lamoTRIgine [LaMICtal] 200 mg PO BID 04/21/15 [History] QUEtiapine FUMARATE [SEROquel] 600 mg PO HS 03/06/16 [History] Atorvastatin Calcium [Lipitor] 20 mg PO DAILY 09/19/16 [History] Budesonide-Formot 160-4.5 Mcg [Symbicort 160-4.5 Mcg Inhaler] 2 puff INHALATION RT-BID 10/29/16 [History] Montelukast Sodium [Singulair] 10 mg PO QAM 10/29/16 [History] Omeprazole 40 mg PO AC-BRKFST 10/29/16 [History] Butalb/Acetaminophen/Caffeine [Fioricet 50-325-40] 1 tab PO Q8H PRN 04/25/18 [ History] Donepezil [Aricept] 10 mg PO HS 04/25/18 [History] HYDROcodone/APAP 7.5-325MG [[place] 7.5-325] 1 tab PO TID 04/25/18 [History] Zonisamide [Zonegran] 200 mg PO HS 04/25/18 [History] amLODIPine BESYLATE [Norvasc] 2.5 mg PO DAILY 04/25/18 [History] Desvenlafaxine Succinate [Pristiq ER] 100 mg PO 2100 30 Days #60 tab.er.24h [Rx] Ipratropium-Albuterol Nebulize [Duoneb 0.5 mg-3 mg/3 ml Soln] 3 ml INHALATION RT -TID PRN ampul.neb 04/28/18 [Rx] QUEtiapine [SEROquel] 25 mg PO BID 30 Days #60 tab 04/28/18 [Rx] buPROPion HCL [Wellbutrin XL] 300 mg PO QAM 30 Days #30 tab.er.24h 04/28/18 [Rx] Follow up Appointment(s)/Referral(s): Jerry Proctor [Outside] - 04/30/18 12:00 pm (Simona Amin please arrive 25 minutes early for paperwork) Loco Carson MD [Primary Care Provider] - 1-2 days Activity/Diet/Wound Care/Special Instructions: Activity and diet as tolerated. Avoid the use of street drugs and alcohol. Remove all firearms from the home. Take all medications as prescribed. Follow up with your Primary Care Physician in one to two days. When you are in need of refills on your medications please contact your medical provider and/or your outpatient psychiatrist to have this done. Please go to the scheduled outpatient appointment for aftercare. If symptoms return or become worse call the crisis line and/ or go the nearest emergency room for an evaluation. l Discharge Disposition: HOME SELF-CARE
== END 2018-04-28 14:55 | disposition home or self-care (01) | DRG 881 ==
LOC: EC 09:17 → 3MHU 13:37
PROVIDERS: ADMIT Psychiatry & Neurology Psychiatry; ATTEND Psychiatry & Neurology Psychiatry
DX: F32.9 Major depressive disorder, single episode, unspecified (principal); R45.851 Suicidal ideations; F13.239 Sedative, hypnotic or anxiolytic dependence with withdrawal, unspecified; G40.909 Epilepsy, unspecified, not intractable, without status epilepticus; I11.9 Hypertensive heart disease without heart failure; F90.9 Attention-deficit hyperactivity disorder, unspecified type; F41.9 Anxiety disorder, unspecified; T42.4X5A Adverse effect of benzodiazepines, initial encounter; J44.9 Chronic obstructive pulmonary disease, unspecified; E03.9 Hypothyroidism, unspecified; K21.9 Gastro-esophageal reflux disease without esophagitis; E78.5 Hyperlipidemia, unspecified; G89.29 Other chronic pain; S32.039S Unspecified fracture of third lumbar vertebra, sequela; S32.019S Unspecified fracture of first lumbar vertebra, sequela; G47.30 Sleep apnea, unspecified; R11.2 Nausea with vomiting, unspecified; R19.7 Diarrhea, unspecified; F17.210 Nicotine dependence, cigarettes, uncomplicated; Z71.6 Tobacco abuse counseling; L98.9 Disorder of the skin and subcutaneous tissue, unspecified; Z79.51 Long term (current) use of inhaled steroids; Z79.891 Long term (current) use of opiate analgesic; Z79.899 Other long term (current) drug therapy; Z99.89 Dependence on other enabling machines and devices; Z87.01 Personal history of pneumonia (recurrent); Z86.14 Personal history of Methicillin resistant Staphylococcus aureus infection; Z90.49 Acquired absence of other specified parts of digestive tract; Z98.84 Bariatric surgery status; Z80.7 Family history of other malignant neoplasms of lymphoid, hematopoietic and related tissues; Z81.8 Family history of other mental and behavioral disorders; W13.2XXS Fall from, out of or through roof, sequela; Y92.009 Unspecified place in unspecified non-institutional (private) residence as the place of occurrence of the external cause
CPT/HCPCS: 80053; 80061; 80306; 82075; 82248; 83036; 84443; 85025; 94640; 99285

== ENCOUNTER 2018-05-06 10:51 | Emergency (ER) | payer MEDICARE ==
[2018-05-06 12:33] LABS: Amphetamine Screen,Urine Not Detected (NotDetected); Barbiturate Screen,Urine Not Detected (NotDetected); Benzodiazepines Screen,Urine Detected (NotDetected); Cocaine Screen,Urine Not Detected (NotDetected); Methadone Screen, Urine Not Detected (NotDetected); Opiate Screen,Urine Detected (NotDetected); Oxycodone Screen, Urine Not Detected (NotDetected); Phencyclidine Screen,Urine Not Detected (NotDetected); Tricyclic Antidepressant,Urine Detected (NotDetected); Urn Cannabinoid Scrn Detected (NotDetected)
--- NOTE | 2018-05-06 14:04 | ED ---
General Adult HPI - General Source: patient, RN notes reviewed Mode of arrival: ambulatory Limitations: no limitations <Carlos Taylor - Last Filed: 05/06/18 14:47> <Khanh Lowery - Last Filed: 05/06/18 15:53> - General Chief complaint: Psychiatric Symptoms Stated complaint: EPS Time Seen by Provider: 05/06/18 11:11 - History of Present Illness Initial comments: Patient 52-year-old male presented to the emergency room today with a chief complaint of needing a psychiatric evaluation. He does admit that he's had suicidal ideation. States that he was use a gun. States he does have access to a gun. Patient denies any homicidal thoughts or plans. He does admit that he was recently admitted to hospital for sciatica had some medications changed. States been trying to follow up outpatient. He denies any other complaints or symptoms. Patient denies any recent fever, chills, shortness of breath, chest pain, back pain, abdominal pain, nausea or vomiting, numbness or tingling , headaches or visual changes, or any other complaints. (Carlos Taylor) - Related Data Home Medications Medication Instructions Recorded Confirmed lamoTRIgine [LaMICtal] 200 mg PO BID 04/21/15 05/06/18 Atorvastatin Calcium [Lipitor] 20 mg PO DAILY 09/19/16 05/06/18 Budesonide-Formot 160-4.5 Mcg 2 puff INHALATION RT-BID 10/29/16 05/06/18 [Symbicort 160-4.5 Mcg Inhaler] Omeprazole 40 mg PO AC-BRKFST 10/29/16 05/06/18 Donepezil [Aricept] 10 mg PO HS 04/25/18 05/06/18 HYDROcodone/APAP 7.5-325MG [[place] 1 tab PO TID 04/25/18 05/06/18 7.5-325] Zonisamide [Zonegran] 200 mg PO HS 04/25/18 05/06/18 amLODIPine BESYLATE [Norvasc] 2.5 mg PO DAILY 04/25/18 05/06/18 Lisinopril 20 mg PO DAILY 04/28/18 05/06/18 Methylphenidate HCl 20 mg PO BID 05/06/18 05/06/18 clonazePAM 1 mg PO BID 05/06/18 05/06/18 Previous Rx's Medication Instructions Recorded QUEtiapine [SEROquel] 25 mg PO BID 30 Days #60 tab 04/28/18 buPROPion HCL [Wellbutrin XL] 300 mg PO QAM 30 Days #30 04/28/18 tab.er.24h Allergies Allergy/AdvReac Type Severity Reaction Status Date / Time No Known Allergies Allergy Verified 05/06/18 12:18 Review of Systems ROS Other: All systems not noted in ROS Statement are negative. <Carlos Taylor - Last Filed: 05/06/18 14:47> ROS Other: All systems not noted in ROS Statement are negative. <Khanh Lowery - Last Filed: 05/06/18 15:53> ROS Statement: Those systems with pertinent positive or pertinent negative responses have been documented in the HPI. Past Medical History Past Medical History: COPD, GERD/Reflux, Hyperlipidemia, Hypertension, Musculoskeletal Disorder, Pneumonia, Respiratory Disorder, Seizure Disorder, Skin Disorder, Sleep Apnea/CPAP/BIPAP, Thyroid Disorder Additional Past Medical History / Comment(s): FREQUENT VOMITING, HX ABSCESSES LEGS with MRSA, CELLULTIS. HX SEIZURE X2, 2011, BIT PART OF TONGUE OFF. NOT ABLE TO USE BIPAP. OLD FX BACK, 2002. HX MRSA Neck/Face/RT THIGH/LT CALF. ENLARGED HEART. CHRONIC BRONCHITIS. "past compression fx l1" History of Any Multi-Drug Resistant Organisms: MRSA Date of last positivie culture/infection: 03/07/16 MDRO Source:: LEFT LEG Past Surgical History: Adenoidectomy, Appendectomy, Cholecystectomy, Heart Catheterization, Hernia Repair, Tonsillectomy Additional Past Surgical History / Comment(s): ABD HERNIA SURG X3; LAP BAND 2009 EST. 06-15-15 LAP REMOVAL OF LAP BAND AND PORT. COLONOSCOPY, EGD. EXC Areas of MRSA on face, neck, LEGS 2016. VENTRAL HERNIA REPAIR 07/2016, Past Anesthesia/Blood Transfusion Reactions: Previous Problems w/ Anesthesia Additional Past Anesthesia/Blood Transfusion Reaction / Comment(s): 1984 DURING T&A SURG, DEVELOPED FLUID IN LUNGS, PUT ON VENT. Past Psychological History: ADD/ADHD, Anxiety, Bipolar, Depression Smoking Status: Current every day smoker Past Alcohol Use History: None Reported Past Drug Use History: None Reported - Past Family History Mother Family Medical History: No Reported History Additional Family Medical History / Comment(s): PT STATED MOM IS HEALTHY Father Family Medical History: Cancer Additional Family Medical History / Comment(s): LYMPHOMA <Carlos Taylor - Last Filed: 05/06/18 14:47> General Exam Limitations: no limitations <Carlos Taylor - Last Filed: 05/06/18 14:47> <Khanh Lowery - Last Filed: 05/06/18 15:53> - General Exam Comments Initial Comments: General: The patient is awake and alert, in no distress, and does not appear acutely ill. Eye: There is normal conjunctiva bilaterally. No signs of icterus. Ears, nose, mouth and throat: There are moist mucous membranes and no oral lesions. Neck: The neck is supple, there is no tenderness or JVD. Cardiovascular: There is a regular rate and rhythm. No murmur, rub or gallop is appreciated. Respiratory: Lungs are clear to auscultation, respirations are non-labored, breath sounds are equal. No wheezes, stridor, rales, or rhonchi. Musculoskeletal: Normal ROM, no tenderness. Neurological: A&O x 3. CN II-XII intact, There are no obvious motor or sensory deficits. Coordination appears grossly intact. Speech is normal. Skin: Skin is warm and dry and no rashes or lesions are noted. Psychiatric: Cooperative, appropriate mood & affect, normal judgment. (Carlos aTylor) Course <Carlos Taylor - Last Filed: 05/06/18 14:47> <Khanh Lowery - Last Filed: 05/06/18 15:53> Vital Signs 05/06/18 10:54 Temperature 98.4 F Pulse Rate 95 Respiratory 18 Rate Blood Pressure 136/83 O2 Sat by Pulse 99 Oximetry - Reevaluation(s) Reevaluation #1: 05/06/18 15:52 Patient is resting comfortably throughout the day. Patient does demonstrate evidence of depression and suicidal ideation. The patient will be transferred. A clinical certification was filled out by me. (Khanh Lowery) Medical Decision Making <Carlos Taylor - Last Filed: 05/06/18 14:47> <Khanh Lowery - Last Filed: 05/06/18 15:53> - Medical Decision Making Patient was seen here in the emergency room by mental health. He recommended that patient be admitted for psychiatric evaluation. Patient will be transferred to psych facility. At this time currently awaiting transfer placement. (Carlos Taylor) - Lab Data Lab Results 05/06/18 Range/Units 11:40 Urine Opiates Screen Detected H (NotDetected) Ur Oxycodone Screen Not Detected (NotDetected) Urine Methadone Screen Not Detected (NotDetected) Ur Propoxyphene Screen Not Detected (NotDetected) Ur Barbiturates Screen Not Detected (NotDetected) U Tricyclic Antidepress Detected H (NotDetected) Ur Phencyclidine Scrn Not Detected (NotDetected) Ur Amphetamines Screen Not Detected (NotDetected) U Methamphetamines Scrn Not Detected (NotDetected) U Benzodiazepines Scrn Detected H (NotDetected) Urine Cocaine Screen Not Detected (NotDetected) U Marijuana (THC) Screen Detected H (NotDetected) Disposition Is patient prescribed a controlled substance at d/c from ED?: No Time of Disposition: 14:49 <Carlos Taylor - Last Filed: 05/06/18 14:47> - Out of Hospital Transfer - Req. Specs Out of Hospital Transfer - Requested Specifics: Psychiatric Non-ICU <Khanh Lowery - Last Filed: 05/06/18 15:53> Clinical Impression: Suicidal ideation, Depression Disposition: TRANSFER TO PSYCH HOSP/UNIT Condition: Stable Referrals: Lisa Jason NPC [Primary Care Provider] - 1-2 days
[2018-05-06] MEDS ORDERED: NICOTINE 21MG/24HR PATCH TRANSDERM STA (15:47)
[2018-05-06 15:56] LABS: Basophils % (A) 1 %; Eosinophils # (A) 0.1 k/uL (0-0.7); Eosinophils % (A) 2 %; HCT 38.1 % (39.0-53.0); HGB 12.2 gm/dL (13.0-17.5); Lymphocytes % (A) 30 %; MCV 90.6 fL (80.0-100.0); Mean Platelet Volume 7.2; Monocytes # (A) 0.4 k/uL (0-1.0); Monocytes % (A) 5 %; Neutrophils % (A) 60 %; Platelet Count 192 k/uL (150-450); RBC 4.21 m/uL (4.30-5.90); RDW 13.6 % (11.5-15.5); WBC 6.6 k/uL (3.8-10.6)
[2018-05-06 16:04] LABS: Appearance,Urine Clear (Clear); Bilirubin,Urine Negative (Negative); Blood,Urine Negative (Negative); Color,Urine Light Yellow; Glucose,Urine (UA) Negative (Negative); Ketones,Urine Negative (Negative); Leukocyte Esterase,Urine Negative (Negative); Nitrite,Urine Negative (Negative); PH, Urine 6.5 (5.0-8.0); Protein,Urine Negative (Negative); Specific Gravity,Urine 1.012 (1.001-1.035); Urobilinogen,Urine <2.0 mg/dL (<2.0)
[2018-05-06 16:06] LABS: Albumin 3.6 g/dL (3.5-5.0); Calcium 8.7 mg/dL (8.4-10.2); Potassium 3.9 mmol/L (3.5-5.1); Total Bilirubin 0.2 mg/dL (0.2-1.3)
[2018-05-06] MEDS ORDERED: HYDROcodone/APAP 7.5-325MG 1 EACH TAB PO ONE (20:07)
[2018-05-06] MEDS ORDERED: ZIPRASIDONE 20 MG VIAL IM STA (21:11)
[2018-05-06 21:22] VITALS: RESP 16
[2018-05-07 00:04] VITALS: BP 131/78; PULSE 69; TEMP 97.6
== END 2018-05-07 01:06 ==
LOC: EC 10:51
DX: F31.9 Bipolar disorder, unspecified (principal); R45.851 Suicidal ideations; J44.9 Chronic obstructive pulmonary disease, unspecified; K21.9 Gastro-esophageal reflux disease without esophagitis; E78.5 Hyperlipidemia, unspecified; I10 Essential (primary) hypertension; G40.909 Epilepsy, unspecified, not intractable, without status epilepticus; F90.9 Attention-deficit hyperactivity disorder, unspecified type; F41.9 Anxiety disorder, unspecified; F17.200 Nicotine dependence, unspecified, uncomplicated; Z86.14 Personal history of Methicillin resistant Staphylococcus aureus infection; Z87.828 Personal history of other (healed) physical injury and trauma; Z90.49 Acquired absence of other specified parts of digestive tract; Z98.890 Other specified postprocedural states; Z79.51 Long term (current) use of inhaled steroids; Z79.891 Long term (current) use of opiate analgesic; Z79.899 Other long term (current) drug therapy
CPT/HCPCS: 96372 ×2; 99285 ×2; 82075; 36415; 80053; 85025; 81003; 80306; S4990; J3486

== ENCOUNTER 2019-01-08 08:49 | Emergency (ER) | payer MEDICARE, OTHER ==
[2019-01-08 09:00] VITALS: BP 126/81; PULSE 94; RESP 20; TEMP 98.1
--- NOTE | 2019-01-08 09:28 | ED ---
General Adult HPI - General Chief complaint: Skin/Abscess/Foreign Body Stated complaint: MRSA Time Seen by Provider: 01/08/19 09:04 Source: patient Mode of arrival: ambulatory Limitations: no limitations - History of Present Illness Initial comments: Dictation was produced using Q-go dictation software. please excuse any grammatical, word or spelling errors. Chief Complaint: 53-year-old male presents with groin abscess and drainage of fluid through her nose when rinsing his mouth History of Present Illness: Is 53-year-old male his primary complaint is abscess to the groin and testicle region. Patient was put on Bactrim on Saturday. His symptoms started over the weekend. Patient has had multiple issues with groin abscesses over the last several years. He is had multiple I&D's to the scrotum and inguinal area. Denies any fever, chills or night sweats. Patient also complains of drainage from his nose when rinsing his mouth. Sometime last week patient had a dental extraction. He has not followed up with the dentist since the extraction because he has a history of MRSA. The ROS documented in this emergency department record has been reviewed and confirmed by me. Those systems with pertinent positive or negative responses have been documented in the HPI. All other systems are other negative and/or noncontributory. PHYSICAL EXAM: General Impression: Alert and oriented x3, not in acute distress HEENT: Normocephalic atraumatic, extra-ocular movements intact, pupils equal and reactive to light bilaterally, mucous membranes moist. Oral: Gingival defect to the left mandibular area. Patient was asked to rinse his mouth with water with immediate drainage of water from the left naris Cardiovascular: Heart regular rate and rhythm, S1&S2 audible, no murmurs, rubs or gallops Chest: Lungs clear to auscultation bilaterally, no rhonchi, no wheeze, no rales Abdomen: Bowel sounds present, abdomen soft, non-tender, non-distended, no organomegaly Musculoskeletal: Pulses present and equal in all extremities, no peripheral edema Motor: no focal deficits noted Neurological: CN II-XII grossly intact, no focal motor or sensory deficits noted Skin: Intact with no visualized rashes : Small 1 x 1 cm boil to the right proximal medial thigh with minimal induration. No surrounding erythema. No palpable crepitus to the groin or testicle. Small 0.5 x 0.5. Induration to the right scrotal area. Psych: Normal affect and mood ED course: 53-year-old male presents with small abscess to the right proximal inner thigh. This lesion was deroofed with 18 g needle with minimal drainage of purulent fluid. Point of care ultrasound was performed to the scrotum and proximal inner thigh area showing no fluid collection. Patient has been on Bactrim with no significant improvement of symptoms. These lesions do appear small. Patient also has drainage of fluid from the nose when rinsing his mouth. He had recent dental extraction.. Vital signs upon arrival are within acceptable limits. Laboratory evaluation obtained. CBC and metabolic panel is unremarkable. Computed tomography scan the face shows defect and the bony cortex between the oropharynx in the left maxillary sinus. Discussed patient case with Dr. Hurt flight control manager for oral facial surgery. He recommends that patient needs to be seen by the primary dentist. He request patient take oral decongestants and to avoid blowing nose or rinsing mouth progressively. Patient to be placed on Keflex for cellulitis coverage for the groin and Augmentin for sinus precautions. Patient is understandable and agreeable to plan. He will follow- up with his dentist in [place] regarding his dental issue. - Related Data Home Medications Medication Instructions Recorded Confirmed lamoTRIgine [LaMICtal] 200 mg PO BID 04/21/15 01/08/19 Atorvastatin Calcium [Lipitor] 20 mg PO HS 09/19/16 01/08/19 HYDROcodone/APAP 7.5-325MG [[place] 1 tab PO TID 04/25/18 01/08/19 7.5-325] amLODIPine BESYLATE [Norvasc] 2.5 mg PO DAILY 04/25/18 01/08/19 Citalopram Hydrobromide [CeleXA] 20 mg PO DAILY 01/08/19 01/08/19 Docusate [Colace] 100 mg PO HS 01/08/19 01/08/19 Eslicarbazepine Acetate [Aptiom] 800 mg PO DAILY 01/08/19 01/08/19 Gabapentin 800 mg PO TID 01/08/19 01/08/19 Omeprazole 20 mg PO BID 01/08/19 01/08/19 QUEtiapine [SEROquel] 400 mg PO HS 01/08/19 01/08/19 Sulfamethox-Tmp 800-160Mg [Bactrim 1 tab PO Q12HR 01/08/19 01/08/19 DS 800-160 mg] clonazePAM [KlonoPIN] 0.5 mg PO TID 01/08/19 01/08/19 hydrOXYzine PAMOATE 50 mg PO TID 01/08/19 01/08/19 Previous Rx's Medication Instructions Recorded QUEtiapine [SEROquel] 25 mg PO BID 30 Days #60 tab 04/28/18 buPROPion HCL [Wellbutrin XL] 300 mg PO QAM 30 Days #30 04/28/18 tab.er.24h Amoxic-Pot Clav 875-125Mg 1 tab PO BID 6 Days #12 tab 01/08/19 [Augmentin 875-125] Cephalexin [Keflex] 500 mg PO Q6HR 3 Days #12 cap 01/08/19 Allergies Allergy/AdvReac Type Severity Reaction Status Date / Time No Known Allergies Allergy Verified 01/08/19 09:28 Review of Systems ROS Statement: Those systems with pertinent positive or pertinent negative responses have been documented in the HPI. ROS Other: All systems not noted in ROS Statement are negative. Past Medical History Past Medical History: COPD, GERD/Reflux, Hyperlipidemia, Hypertension, Musculoskeletal Disorder, Pneumonia, Respiratory Disorder, Seizure Disorder, Skin Disorder, Sleep Apnea/CPAP/BIPAP, Thyroid Disorder Additional Past Medical History / Comment(s): FREQUENT VOMITING, HX ABSCESSES LEGS with MRSA, CELLULTIS. HX SEIZURE X2, 2011, BIT PART OF TONGUE OFF. NOT ABLE TO USE BIPAP. OLD FX BACK, 2002. HX MRSA Neck/Face/RT THIGH/LT CALF. ENLARGED HEART. CHRONIC BRONCHITIS. "past compression fx l1" History of Any Multi-Drug Resistant Organisms: MRSA Date of last positivie culture/infection: 03/07/16 MDRO Source:: LEFT LEG Past Surgical History: Adenoidectomy, Appendectomy, Cholecystectomy, Heart Catheterization, Hernia Repair, Tonsillectomy Additional Past Surgical History / Comment(s): ABD HERNIA SURG X3; LAP BAND 2009 EST. 3-10-15 LAP REMOVAL OF LAP BAND AND PORT. COLONOSCOPY, EGD. EXC Areas of MRSA on face, neck, LEGS 2015. VENTRAL HERNIA REPAIR 07/2016, Past Anesthesia/Blood Transfusion Reactions: Previous Problems w/ Anesthesia Additional Past Anesthesia/Blood Transfusion Reaction / Comment(s): 1985 DURING T&A SURG, DEVELOPED FLUID IN LUNGS, PUT ON VENT. Past Psychological History: ADD/ADHD, Anxiety, Bipolar, Depression Smoking Status: Current every day smoker Past Alcohol Use History: None Reported Past Drug Use History: Marijuana - Past Family History Mother Family Medical History: No Reported History Additional Family Medical History / Comment(s): PT STATED MOM IS HEALTHY Father Family Medical History: Cancer Additional Family Medical History / Comment(s): LYMPHOMA General Exam Limitations: no limitations Course Vital Signs 01/08/19 08:51 Temperature 98.1 F Pulse Rate 94 Respiratory 20 Rate Blood Pressure 126/81 O2 Sat by Pulse 97 Oximetry Medical Decision Making - Lab Data Result diagrams: 01/08/19 09:50 01/08/19 09:50 Lab Results 01/08/19 01/08/19 Range/Units 09:50 09:50 WBC 5.4 (3.8-10.6) k/uL RBC 4.68 (4.30-5.90) m/uL Hgb 12.5 L (13.0-17.5) gm/dL Hct 39.9 (39.0-53.0) % MCV 85.4 (80.0-100.0) fL MCH 26.7 (25.0-35.0) pg MCHC 31.3 (31.0-37.0) g/dL RDW 15.0 (11.5-15.5) % Plt Count 266 (150-450) k/uL Neutrophils % 59 % Lymphocytes % 27 % Monocytes % 7 % Eosinophils % 3 % Basophils % 1 % Neutrophils # 3.2 (1.3-7.7) k/uL Lymphocytes # 1.5 (1.0-4.8) k/uL Monocytes # 0.4 (0-1.0) k/uL Eosinophils # 0.2 (0-0.7) k/uL Basophils # 0.1 (0-0.2) k/uL Sodium 139 (137-145) mmol/L Potassium 4.3 (3.5-5.1) mmol/L Chloride 105 (98-107) mmol/L Carbon Dioxide 30 (22-30) mmol/L Anion Gap 4 mmol/L BUN 17 (9-20) mg/dL Creatinine 0.92 (0.66-1.25) mg/dL Est GFR (CKD-EPI)AfAm >90 (>60 ml/min/1.73 sqM) Est GFR (CKD-EPI)NonAf >90 (>60 ml/min/1.73 sqM) Glucose 124 H (74-99) mg/dL Calcium 8.6 (8.4-10.2) mg/dL Disposition Clinical Impression: Folliculitis, Surgical complication Disposition: HOME SELF-CARE Condition: Good Instructions (If sedation given, give patient instructions): Abscess Incision and Drainage (DC) Additional Instructions: follow up with Dentist in [facility] [place] oral decongestants like sudafed no nose blowing or agressive oral rinsing Prescriptions: Amoxic-Pot Clav 875-125Mg [Augmentin 875-125] 1 tab PO BID 6 Days #12 tab Cephalexin [Keflex] 500 mg PO Q6HR 3 Days #12 cap Is patient prescribed a controlled substance at d/c from ED?: No Referrals: Lisa Jason NPC [REFERRING] - 1-2 days Time of Disposition: 11:56
[2019-01-08 10:20] LABS: Basophils # (A) 0.1 k/uL (0-0.2); Basophils % (A) 1 %; Eosinophils # (A) 0.2 k/uL (0-0.7); Eosinophils % (A) 3 %; HCT 39.9 % (39.0-53.0); HGB 12.5 gm/dL (13.0-17.5); Lymphocytes # (A) 1.5 k/uL (1.0-4.8); Lymphocytes % (A) 27 %; MCH 26.7 pg (25.0-35.0); MCHC 31.3 g/dL (31.0-37.0); MCV 85.4 fL (80.0-100.0); Mean Platelet Volume 6.8; Monocytes # (A) 0.4 k/uL (0-1.0); Monocytes % (A) 7 %; Neutrophils # (A) 3.2 k/uL (1.3-7.7); Neutrophils % (A) 59 %; Platelet Count 266 k/uL (150-450); RBC 4.68 m/uL (4.30-5.90); WBC 5.4 k/uL (3.8-10.6)
[2019-01-08 10:36] LABS: African American GFR (CKD) >90 (>60 ml/min/1.73 sqM); Anion Gap 4 mmol/L; Blood Urea Nitrogen 17 mg/dL (9-20); Calcium 8.6 mg/dL (8.4-10.2); Carbon Dioxide 30 mmol/L (22-30); Chloride 105 mmol/L (98-107); Glucose 124 mg/dL (74-99); Potassium 4.3 mmol/L (3.5-5.1); Sodium 139 mmol/L (137-145)
--- NOTE | 2019-01-08 10:39 | CT ---
EXAMINATION TYPE: CT facial bones w con DATE OF EXAM: 01/08/2019 COMPARISON: None HISTORY: Oral nasal fistula CT DLP: 518.1 mGycm Automated exposure control for dose reduction was used. CONTRAST: CT scan of the facial bones is performed with IV Contrast, patient injected with 100 mL of Isovue 300 . TECHNIQUE: CT scan of the sinuses is performed without contrast, axial images are obtained, coronal r eformatted images are also reviewed. FINDINGS: There is mucosal thickening and air-fluid level within the left maxillary sinus compatible is sinusitis. Nasal septal deviation noted. Mild changes of ethmoidal sinusitis. On the left. Visualized portion of mastoid air cells show no abnormal opacification. The globes are intact bilate rally. There appears to be evidence of previous dental extraction on the left and there appears to b e an abnormal communication between the site of the tooth extraction in the inferior margin of the ma xillary sinus. This may represent a new communication between the oral cavity and the paranasal sinus es. There is atherosclerotic change of the carotid arteries bilaterally greater on the right. IMPRESSION: 1. There appears to be evidence of recent dental extraction on the left. There is loss of bony cortex and there appears to be a communication between the oropharynx and the left maxillary sinus which no ocasio is related to the dental procedure. Also there is increased attenuation and sinusitis within the left maxillary sinus with an air-fluid level. Correlate clinically to account for the patient's symp toms.
== END 2019-01-08 12:12 | disposition home or self-care (01) ==
LOC: EC 08:49
DX: L73.9 Follicular disorder, unspecified (principal); L76.82 Other postprocedural complications of skin and subcutaneous tissue; J34.89 Other specified disorders of nose and nasal sinuses; E78.5 Hyperlipidemia, unspecified; I11.9 Hypertensive heart disease without heart failure; K21.9 Gastro-esophageal reflux disease without esophagitis; G40.909 Epilepsy, unspecified, not intractable, without status epilepticus; F31.9 Bipolar disorder, unspecified; F41.9 Anxiety disorder, unspecified; F17.200 Nicotine dependence, unspecified, uncomplicated; Z79.899 Other long term (current) drug therapy; Z79.891 Long term (current) use of opiate analgesic; Z86.14 Personal history of Methicillin resistant Staphylococcus aureus infection; Z98.818 Other dental procedure status; Z98.890 Other specified postprocedural states
CPT/HCPCS: 36415; 80048; 85025; 70487; 99284; Q9967

== ENCOUNTER 2019-03-12 18:47 | Inpatient (IN) | payer MEDICARE, OTHER ==
[2019-03-12] MEDS ORDERED: NITROGLYCERIN SL TABS 0.4 MG TAB SUBLINGUAL PRN (19:02)
--- NOTE | 2019-03-12 19:03 | ED ---
General Adult HPI - General Chief complaint: Dizziness Stated complaint: Syncope Time Seen by Provider: 03/12/19 18:49 Source: patient, family, EMS, RN notes reviewed, old records reviewed Mode of arrival: EMS - History of Present Illness Initial comments: Patient is a pleasant 53-year-old male presenting to the emergency Department as a transfer from [facility]. Patient was transferred secondary to syncope and lithium toxicity. [place] level was 2.3. They did speak with poison control there who recommended monitoring and IV fluids. Patient states he has had decreased appetite and has not ate much of anything over the past 8 days. Patient denies any pain. No nausea or vomiting. Patient states he just has no appetite. Patient states sometimes she does get that way. patient diarrhea. Patient amiss to having 2 or 3 episodes of syncope over the past couple of days. Patient has had several near-syncopal episodes. Patient feels lightheaded and feels like he cannot get up and walk around. Patient did have computed tomography scan done of the brain that was reported as no acute abnormality. - Related Data Home Medications Medication Instructions Recorded Confirmed lamoTRIgine [LaMICtal] 200 mg PO BID 04/21/15 01/08/19 Atorvastatin Calcium [Lipitor] 20 mg PO HS 09/19/16 01/08/19 HYDROcodone/APAP 7.5-325MG [[place] 1 tab PO TID 04/25/18 01/08/19 7.5-325] amLODIPine BESYLATE [Norvasc] 2.5 mg PO DAILY 04/25/18 01/08/19 Citalopram Hydrobromide [CeleXA] 20 mg PO DAILY 01/08/19 01/08/19 Docusate [Colace] 100 mg PO HS 01/08/19 01/08/19 Eslicarbazepine Acetate [Aptiom] 800 mg PO DAILY 01/08/19 01/08/19 Gabapentin 800 mg PO TID 01/08/19 01/08/19 Omeprazole 20 mg PO BID 01/08/19 01/08/19 QUEtiapine [SEROquel] 400 mg PO HS 01/08/19 01/08/19 Sulfamethox-Tmp 800-160Mg [Bactrim 1 tab PO Q12HR 01/08/19 01/08/19 DS 800-160 mg] clonazePAM [KlonoPIN] 0.5 mg PO TID 01/08/19 01/08/19 hydrOXYzine PAMOATE 50 mg PO TID 01/08/19 01/08/19 Previous Rx's Medication Instructions Recorded QUEtiapine [SEROquel] 25 mg PO BID 30 Days #60 tab 04/28/18 buPROPion HCL [Wellbutrin XL] 300 mg PO QAM 30 Days #30 04/28/18 tab.er.24h Amoxic-Pot Clav 875-125Mg 1 tab PO BID 6 Days #12 tab 01/08/19 [Augmentin 875-125] Cephalexin [Keflex] 500 mg PO Q6HR 3 Days #12 cap 01/08/19 Allergies Allergy/AdvReac Type Severity Reaction Status Date / Time No Known Allergies Allergy Verified 01/08/19 09:28 Review of Systems ROS Statement: Those systems with pertinent positive or pertinent negative responses have been documented in the HPI. ROS Other: All systems not noted in ROS Statement are negative. Constitutional: Denies: fever Eyes: Denies: eye pain ENT: Denies: ear pain Respiratory: Denies: dyspnea Cardiovascular: Denies: chest pain Endocrine: Denies: fatigue Gastrointestinal: Denies: abdominal pain Genitourinary: Denies: dysuria Musculoskeletal: Denies: back pain Skin: Denies: rash Neurological: Reports: vertigo. Denies: headache Past Medical History Past Medical History: COPD, GERD/Reflux, Hyperlipidemia, Hypertension, Mus culoskeletal Disorder, Pneumonia, Respiratory Disorder, Seizure Disorder, Skin Disorder, Sleep Apnea/CPAP/BIPAP, Thyroid Disorder Additional Past Medical History / Comment(s): FREQUENT VOMITING, HX ABSCESSES LEGS with MRSA, CELLULTIS. HX SEIZURE X2, 2011, BIT PART OF TONGUE OFF. NOT ABLE TO USE BIPAP. OLD FX BACK, 2002. HX MRSA Neck/Face/RT THIGH/LT CALF. ENLARGED HEART. CHRONIC BRONCHITIS. "past compression fx l1" History of Any Multi-Drug Resistant Organisms: MRSA Date of last positivie culture/infection: 03/07/16 MDRO Source:: LEFT LEG Past Surgical History: Adenoidectomy, Appendectomy, Cholecystectomy, Heart Catheterization, Hernia Repair, Tonsillectomy Additional Past Surgical History / Comment(s): ABD HERNIA SURG X3; LAP BAND 2009 EST. 06-15-14 LAP REMOVAL OF LAP BAND AND PORT. COLONOSCOPY, EGD. EXC Areas of MRSA on face, neck, LEGS 2016. VENTRAL HERNIA REPAIR 07/2016, Past Anesthesia/Blood Transfusion Reactions: Previous Problems w/ Anesthesia Additional Past Anesthesia/Blood Transfusion Reaction / Comment(s): 1985 DURING T&A SURG, DEVELOPED FLUID IN LUNGS, PUT ON VENT. Past Psychological History: ADD/ADHD, Anxiety, Bipolar, Depression Smoking Status: Current every day smoker Past Alcohol Use History: None Reported Past Drug Use History: Marijuana - Past Family History Mother Family Medical History: No Reported History Additional Family Medical History / Comment(s): PT STATED MOM IS HEALTHY Father Family Medical History: Cancer Additional Family Medical History / Comment(s): LYMPHOMA General Exam Limitations: no limitations General appearance: alert, in no apparent distress Head exam: Present: normocephalic Eye exam: Present: normal appearance, PERRL, EOMI, nystagmus ENT exam: Present: normal oropharynx Neck exam: Present: normal inspection Respiratory exam: Present: normal lung sounds bilaterally Cardiovascular Exam: Present: regular rate, normal rhythm Expanded Peripheral pulses: 2+: Radial (R), Radial (L), Posterior Tibialis (R), Posterior Tibialis (L), Dorsalis Pedis (R), Dorsalis Pedis (L) GI/Abdominal exam: Present: soft. Absent: tenderness Extremities exam: Present: normal inspection, full ROM. Absent: tenderness Neurological exam: Present: alert, CN II-XII intact, other (Patient does have minimal clonus). Absent: motor sensory deficit Expanded Cranial nerves: EOM's Intact: Normal Motor strength exam: RUE: 5, LUE: 5, RLE: 5, LLE: 5 Psychiatric exam: Present: flat affect Skin exam: Present: normal color. Absent: rash Course Vital Signs 03/12/19 18:53 Temperature 98 F Pulse Rate 63 Respiratory 18 Rate Blood Pressure 99/62 O2 Sat by Pulse 96 Oximetry Medical Decision Making - Medical Decision Making Case was discussed with Dr. Carballo, covering for Dr. Galan, who admits for Dr. Carson and he will admit. Disposition Clinical Impression: Syncope, [place] toxicity Disposition: ADMITTED IP TO THIS HOSP Is patient prescribed a controlled substance at d/c from ED?: No Referrals: Loco Carson MD [Primary Care Provider] - 1-2 days Decision Time: 19:02
[2019-03-12] MEDS: SODIUM CHLORIDE 0.9% 1,000 ML IV SCH (19:56)
[2019-03-12] MEDS ORDERED: clonazePAM 0.5 MG TAB PO PRN (21:41)
[2019-03-12] MEDS ORDERED: SENNOSIDES-DOCUSATE SODIUM 1 EACH TAB PO PRN (21:41)
[2019-03-12] MEDS ORDERED: hydrOXYzine PAMOATE 25 MG CAP PO PRN (21:41)
[2019-03-12] MEDS ORDERED: ALBUTEROL NEBULIZED 2.5 MG/3 ML INHALATION PRN (21:41)
[2019-03-12] MEDS ORDERED: BUTALB/APAP/CAFF 50-325-40MG TAB PO PRN (21:41)
[2019-03-12] MEDS: IPRATROPIUM-ALBUTEROL 3 ML NEB INHALATION SCH (22:01)
[2019-03-12] MEDS: SYMBICORT 80-4.5 MCG INHALER INHALATION SCH (22:03)
[2019-03-12] MEDS: GABAPENTIN 400 MG CAP PO SCH (22:29)
[2019-03-12] MEDS: HYDROcodone/APAP 7.5-325MG 1 EACH TAB PO SCH (22:29)
[2019-03-12] MEDS: NICOTINE 21MG/24HR PATCH TRANSDERM SCH (22:30)
[2019-03-13] MEDS: IPRATROPIUM-ALBUTEROL 3 ML NEB INHALATION SCH ×4 (01:55→20:41)
[2019-03-13 02:27] LABS: Anisocytosis Slight; Basophils % (A) 0 %; Eosinophils # (A) 0.4 k/uL (0-0.7); Eosinophils % (A) 4 %; HCT 35.2 % (39.0-53.0); HGB 11.5 gm/dL (13.0-17.5); Lymphocytes # (A) 2.4 k/uL (1.0-4.8); Lymphocytes % (A) 21 %; MCH 27.9 pg (25.0-35.0); MCHC 32.6 g/dL (31.0-37.0); MCV 85.8 fL (80.0-100.0); Mean Platelet Volume 7.9; Monocytes # (A) 0.7 k/uL (0-1.0); Monocytes % (A) 6 %; Neutrophils # (A) 7.7 k/uL (1.3-7.7); Neutrophils % (A) 68 %; Platelet Count 193 k/uL (150-450); WBC 11.4 k/uL (3.8-10.6)
[2019-03-13 02:37] LABS: Calcium 8.8 mg/dL (8.4-10.2); Lithium 1.7 mmol/L; Potassium 4.3 mmol/L (3.5-5.1)
[2019-03-13 06:02] LABS: Appearance,Urine Clear (Clear); Bilirubin,Urine Negative (Negative); Blood,Urine Negative (Negative); Color,Urine Yellow; Glucose,Urine (UA) Negative (Negative); Ketones,Urine Negative (Negative); Leukocyte Esterase,Urine Negative (Negative); Nitrite,Urine Negative (Negative); Protein,Urine Negative (Negative); Specific Gravity,Urine 1.016 (1.001-1.035); Urobilinogen,Urine <2.0 mg/dL (<2.0)
--- NOTE | 2019-03-13 06:02 | HP ---
HISTORY AND PHYSICAL DATE OF SERVICE: 03/12/2019 CHIEF COMPLAINT: Dizziness and syncope. HISTORY OF PRESENT ILLNESS: 53-year-old gentleman with a past medical history of multiple medical problems including history of COPD, hypertension, hyperlipidemia, history of DJD, history of seizure disorder, sleep apnea, history of adenoidectomy, history of anxiety, bipolar depression, being followed Dr. Carson in the outpatient setting apparently had multiple episodes of syncope. The patient passed out at least 1 to 2 minutes according to the and the patient was taken to [facility] and was found to have lithium toxicity with lithium 2.8 and the patient transferred to [facility]. Poison Control has been contacted. There is no history of fever, rigors or chills. No history of any chest pain, palpitations, hematochezia or melena at this time. PAST MEDICAL HISTORY: COPD, GERD, hypertension, hyperlipidemia, history of DJD, history of pneumonia, history of adenoidectomy, appendectomy, history of ADD, ADHD, anxiety, bipolar. MEDICATIONS: Home medications are: 1. Senna one tablet q.h.s. p.r.n. 2. Lipitor 20 mg q.h.s. 3. Ventolin 2 puffs q.6h p.r.n. 4. Seroquel 400 mg q.h.s. 5. Zestril 20 mg p.o. daily. 6. Naprosyn 500 mg p.o. b.i.d. 7. Prednisone 40 mg. 8. DuoNeb q.6h. 9. Vibramycin 100 mg p.o. b.i.d. 10.MiraLAX 17 g p.o. daily. 11.Breo Ellipta 1 puff daily. 12.Makaweli 7.5 t.i.d. 13.Aptiom 800 mg p.o. daily. 14.Fioricet 50/320 mg p.o. q.8 and 4 p.r.n. 15.Lamictal 200 mg p.o. b.i.d. 16.Klonopin 0.5 mg t.i.d. p.r.n. 17.Seroquel 100 mg p.o. b.i.d. 18.Gabapentin 800 mg p.o. t.i.d. 19.Celexa 40 mg. 20.Hydroxyzine 50 mg t.i.d. p.r.n. 21.Omeprazole 40 mg p.o. daily. ALLERGIES: None. FAMILY HISTORY: History of cancer, lymphoma in the family. SOCIAL HISTORY: No history of smoking. No history of alcohol intake. REVIEW OF SYSTEMS: ENT: No diminished vision. No diminished hearing. CARDIOVASCULAR SYSTEM: No angina or palpitations. RESPIRATORY: As mentioned earlier. GASTROINTESTINAL: As mentioned earlier. no dysuria. NERVOUS SYSTEM: No numbness otherwise as mentioned earlier. ALLERGIES/IMMUNOLOGY: No asthmas, hayfever. MUSCULOSKELETAL: neg CONSTITUTIONAL: As mentioned earlier. DERMATOLOGY: Negative. RHEUMATOLOGY: Negative. PSYCHIATRY: As mentioned earlier. PHYSICAL EXAMINATION: Alert and oriented x3. Pulse is 67. Blood pressure 116/70, respiration 18, temperature 98 degrees, pulse ox 97% on 2 L. HEENT: Conjunctivae normal. Oral mucosa moist. NECK is no jugular venous distention. No carotid bruit. No lymph node enlargement. Cardiovascular system: S1, S2. No S3, no S4. RESPIRATORY: Breath sounds diminished in the bases. No rhonchi. No crackles. ABDOMEN: Soft, nontender. No mass palpable. LEGS: No edema. No swelling. NERVOUS SYSTEM: Higher functions as mentioned earlier. Moves all four limbs. No focal motor or sensory deficits. LYMPHATICS: No lymph nodes palpable in the neck, axillae or groin. SKIN: No ulcer, no rashes and no bleeding. JOINTS: No active deforming arthropathy. LABS: At this time shows troponin 0.12. ASSESSMENT: 1. Syncope for evaluation. 2. Possible lithium toxicity. 3. Relative hypotension. 4. History of chronic obstructive pulmonary disease. 5. Gastroesophageal reflux disease. 6. Hyperlipidemia. 7. History of hypertension. 8. History of degenerative joint disease. 9. History of pneumonia. 10.History of seizure disorder. 11.Sleep apnea. 12.History of hypothyroidism. 13.History of frequent vomiting. 14.History of cellulitis. 15.History of MRSA. 16.History of cardiac catheterization. 17.History of cholecystectomy. 18.History attention-deficit disorder/attention-deficit/hyperactivity disorder. 19.History of anxiety, bipolar depression. 20.History of continued ongoing nicotine dependence. RECOMMENDATIONS AND DISCUSSION: In this 53-year-old gentleman who presented with multiple complex medical issues, we will monitor the patient closely. Continue the current medications, management and symptomatic treatment. Neurology, Psychiatry have been consulted. Cardiology also has been consulted for evaluation of syncope. Otherwise, we will continue to monitor, 2D echo, carotid Doppler. Neurovascular workup. Hold off the blood pressure medications. Poison Control to be contacted regarding the high lithium level. Guarded prognosis. Further recommendations to follow. A copy of dictation being forwarded by Dr. Carson who is the primary physician. MMVASILEL / IJN: [id number] / LIA
[2019-03-13] MEDS: PANTOPRAZOLE 40 MG TABLET PO SCH (06:29)
[2019-03-13] MEDS: SODIUM CHLORIDE 0.9% 1,000 ML IV SCH ×3 (06:29→22:22)
--- NOTE | 2019-03-13 08:21 | US ---
EXAMINATION TYPE: US carotid duplex BILAT DATE OF EXAM: 03/13/2019 COMPARISON: US 2017 CLINICAL HISTORY: stroke. Stroke, syncope, smoker, HTN, exam done portable. EXAM MEASUREMENTS: RIGHT: Peak Systolic Velocity (PSV) cm/sec ----- Right CCA: 70.3 ----- Right ICA: 75.8 ----- Right ECA: 103.8 ICA/CCA ratio: 1.1 RIGHT: End Diastole cm/sec ----- Right CCA: 24.1 ----- Right ICA: 38.1 ----- Right ECA: 25.9 LEFT: Peak Systolic Velocity (PSV) cm/sec ----- Left CCA: 77.3 ----- Left ICA: 66.3 ----- Left ECA: 68.1 ICA/CCA ratio: 0.9 LEFT: End Diastole cm/sec ----- Left CCA: 20.8 ----- Left ICA: 32.1 ----- Left ECA: 12.5 VERTEBRALS (direction of flow): Right Vertebral: Antegrade Left Vertebral: Antegrade Rhythm: Normal Bilateral intimal thickening, plaque bilateral bulb, no elevated velocities, no significant stenosis. IMPRESSION: Mild degree of grayscale atheromatous plaquing with no sonographically evident hemodynam ically significant stenosis within either visualized carotid arterial system. Criteria for Assigning % of Stenosis / Diameter reduction (Estimation based on the indirect measurements of the internal carotid artery velocities (ICA PSV). 1. Normal (no stenosis)=ICA PSV < 125 cm/s: ratio < 2.0: ICA EDV<40 cm/s. 2. Less than 50% stenosis=ICA PSV < 125 cm/s: ratio < 2.0: ICA EDV<40 cm/s. 3. 50 to 69% stenosis=ICA PSV of 125 to 230 cm/s: ration 2.0 ? 4.0: ICA EDV 40-100 cm/s. 4. Greater than 70% stenosis to near occlusion= ICA PSV > 230 cm/s: ratio > 4.0: ICA EDV > 100 cm/s. 5. Near occlusion= ICA PSV velocities may be low or undetectable: variable ratio and ICA EDV. 6. Total occlusion=unable to detect flow.
[2019-03-13] MEDS: SYMBICORT 80-4.5 MCG INHALER INHALATION SCH ×2 (08:47→20:41)
--- NOTE | 2019-03-13 08:48 | P.CRDCN ---
History of Present Illness Consult date: 03/13/19 Requesting physician: Mame Carballo Consult reason: sycope Chief complaint: Syncope History of present illness: This is a 53-year-old gentleman with history of hypertension, hyperlipidemia, bipolar, schizophrenia, COPD, epileptic seizures, nicotine dependence, patient states that he smokes 2 packs of cigarettes per day, he initially presented to [facility] after experiencing multiple episodes of syncope at home, according to him he spent quite shaky over the past week, he stood up to go to look out the window and passed out subsequent to that he again had 2 similar episodes. He states that he became extremely dizzy prior to passing out. His blood pressure on presentation to [place] was 144/70 with a heart rate in the 80s 95% on room air. Laboratory data at [place] was also reviewed, his lithium level was 2.38 which is considerably elevated, his white blood cell count was 11.3 hemoglobin 12.5, platelet count 192 alcohol level was 0, his CPK was 1012, MB 1.5 sodium 138, potassium 3.9, BUN 28, creatinine 1.4, magnesium 2.4, phosphorus 3.1, BNP level normal troponin 0.012 CAT scan of the head was also performed there which did not reveal any acute intracranial h emorrhage or midline shift. Chest x-ray did not reveal any acute process. Patient was transferred to [facility] for further evaluation and treatment. His EKG on presentation here shows a normal sinus rhythm with prolonged QT interval. Blood pressure 108/70 with a heart rate in the 70s, 94% on room air. White blood cell count 11.4, hemoglobin 11.5, platelet count 193. Sodium 138, potassium 4.3, BUN 20, creatinine 1.1. Troponins have been negative 2. Cholesterol 89, triglycerides 180, LDL 22, HDL 31. His lithium level was repeated here came back to be 1.7. At the time of my examination this morning, the patient feels tired, he is still mildly shaky but states that he's been like that for the past one month or so. He denies any palpitations, no chest discomfort, does state that he's felt more short of breath than usual and has noticed more wheezing recently. Past Medical History Past Medical History: COPD, GERD/Reflux, Hyperlipidemia, Hypertension, Musculoskeletal Disorder, Pneumonia, Respiratory Disorder, Seizure Disorder, Sk in Disorder, Sleep Apnea/CPAP/BIPAP, Thyroid Disorder Additional Past Medical History / Comment(s): FREQUENT VOMITING, HX ABSCESSES LEGS with MRSA, CELLULTIS. HX SEIZURE X2, 2011, BIT PART OF TONGUE OFF. NOT ABLE TO USE BIPAP. OLD FX BACK, 2002. HX MRSA Neck/Face/RT THIGH/LT CALF. ENLARGED HEART. CHRONIC BRONCHITIS. "past compression fx l1" History of Any Multi-Drug Resistant Organisms: MRSA Date of last positivie culture/infection: 03/07/16 MDRO Source:: LEFT LEG Past Surgical History: Adenoidectomy, Appendectomy, Cholecystectomy, Heart Catheterization, Hernia Repair, Tonsillectomy Additional Past Surgical History / Comment(s): ABD HERNIA SURG X3; LAP BAND 2009 EST. 06-15-14 LAP REMOVAL OF LAP BAND AND PORT. COLONOSCOPY, EGD. EXC Are as of MRSA on face, neck, LEGS 2015. VENTRAL HERNIA REPAIR 07/2016, Past Anesthesia/Blood Transfusion Reactions: Previous Problems w/ Anesthesia Additional Past Anesthesia/Blood Transfusion Reaction / Comment(s): 1985 DURING T&A SURG, DEVELOPED FLUID IN LUNGS, PUT ON VENT. Past Psychological History: ADD/ADHD, Anxiety, Bipolar, Depression Additional Psychological History / Comment(s): . Smoking Status: Current every day smoker Past Alcohol Use History: None Reported Additional Past Alcohol Use History / Comment(s): HX SMOKING OFF/ON SINCE AGE 12, UP TO 1 PPD, QUIT JUNE 2016 Past Drug Use History: Marijuana Additional Drug Use History / Comment(s): USING MEDICAL MARIJUANA, DAILY. (PT STATED WENT TO REHAB IN 1998 D/T USE OF COCAINE/CRACK). INSTRUCTED NO MARIJUANA USE 24 HR PRIOR TO PROCEDURE - Past Family History Mother Family Medical History: No Reported History Additional Family Medical History / Comment(s): PT STATED MOM IS HEALTHY Father Family Medical History: Cancer Additional Family Medical History / Comment(s): LYMPHOMA Medications and Allergies Home Medications Medication Instructions Recorded Confirmed Type lamoTRIgine [LaMICtal] 200 mg PO BID 04/21/15 03/12/19 History Atorvastatin Calcium [Lipitor] 20 mg PO HS 09/19/16 03/12/19 History HYDROcodone/APAP 7.5-325MG [Hiram 1 tab PO TID 04/25/18 03/12/19 History 7.5-325] Eslicarbazepine Acetate [Aptiom] 800 mg PO DAILY 01/08/19 03/12/19 History Gabapentin 800 mg PO TID 01/08/19 03/12/19 History Omeprazole 40 mg PO DAILY 01/08/19 03/12/19 History QUEtiapine [SEROquel] 400 mg PO HS 01/08/19 03/12/19 History clonazePAM [KlonoPIN] 0.5 mg PO TID PRN 01/08/19 03/12/19 History hydrOXYzine PAMOATE 50 mg PO TID PRN 01/08/19 03/12/19 History Albuterol Inhaler [Ventolin Hfa 2 puff INHALATION RT-Q6H PRN 03/12/19 03/12/19 History Inhaler] Butalb/APAP/Caff 50-325-40Mg 1 tab PO Q8H PRN 03/12/19 03/12/19 History [Fioricet 50-325-40] Citalopram Hydrobromide [CeleXA] 40 mg PO DAILY 03/12/19 03/12/19 History Doxycycline Hyclate [Vibramycin] 100 mg PO BID 03/12/19 03/12/19 History Fluticasone/Vilanterol [Breo 1 puff INHALATION RT-DAILY 03/12/19 03/12/19 History Ellipta 100-25 Mcg Inhaler] Ipratropium-Albuterol Nebulize 3 ml INHALATION RT-Q6H 03/12/19 03/12/19 History [Duoneb 0.5 mg-3 mg/3 ml Soln] Lisinopril [Zestril] 20 mg PO DAILY 03/12/19 03/12/19 History Naproxen 500 mg PO BID 03/12/19 03/12/19 History Polyethylene Glycol 3350 [Miralax] 17 gm PO DAILY 03/12/19 03/12/19 History QUEtiapine [SEROquel] 100 mg PO BID 03/12/19 03/12/19 History Sennosides-Docusate Sodium 1 tab PO HS PRN 03/12/19 03/12/19 History [Senokot-S] predniSONE 40 mg PO DAILY 03/12/19 03/12/19 History Allergies Allergy/AdvReac Type Severity Reaction Status Date / Time No Known Allergies Allergy Verified 03/12/19 20:19 Physical Exam Vitals: Vital Signs Temp Pulse Pulse Resp BP BP Pulse Ox 03/13/19 03:40 98.2 F 74 18 107/69 94 L 03/13/19 00:00 98.3 F 78 18 115/78 97 03/12/19 23:09 98.4 F 67 18 107/65 94 L 03/12/19 22:12 68 03/12/19 22:04 68 03/12/19 19:57 67 18 116/70 97 03/12/19 18:53 98 F 63 18 99/62 96 Intake and Output 03/12/19 03/13/19 03/13/19 22:59 06:59 14:59 Output Total 475 300 Balance -475 -300 Output: Urine 475 300 Other: # Voids 1 # Bowel Movements 1 Weight 91.626 kg 92.3 kg PHYSICAL EXAMINATION: GENERAL: 53-year-old gentleman in no acute distress at the time of my examination HEENT: Head is atraumatic, normocephalic. Pupils equal, round. Sclera anicteric. Conjunctiva are clear. Mucous membranes of the mouth are moist. Neck is supple. There is no elevated jugular venous pressure. No carotid bruit is heard. HEART EXAMINATION: Heart S1, S2 normal. No murmur or gallop heard. CHEST EXAMINATION: Lungs reveal decreased air exchange with some mild scattered wheezing throughout. ABDOMEN: Soft, nontender. Bowel sounds are heard. No organomegaly noted. EXTREMITIES: 2+ peripheral pulses with no evidence of peripheral edema and no calf tenderness noted. NEUROLOGIC patient is awake, alert and oriented 3 . . Results 03/13/19 02:12 03/13/19 02:12 Cardiac Enzymes 03/12/19 03/13/19 Range/Units 18:55 02:12 Troponin I <0.012 <0.012 (0.000-0.034) ng/mL Lipids 03/13/19 Range/Units 02:12 Triglycerides 180 H (<150) mg/dL Cholesterol 89 (<200) mg/dL HDL Cholesterol 31 L (40-60) mg/dL CBC 03/13/19 Range/Units 02:12 WBC 11.4 H (3.8-10.6) k/uL RBC 4.10 L (4.30-5.90) m/uL Hgb 11.5 L (13.0-17.5) gm/dL Hct 35.2 L (39.0-53.0) % Plt Count 193 (150-450) k/uL Comprehensive Metabolic Panel 03/13/19 Range/Units 02:12 Sodium 138 (137-145) mmol/L Potassium 4.3 (3.5-5.1) mmol/L Chloride 111 H (98-107) mmol/L Carbon Dioxide 24 (22-30) mmol/L BUN 20 (9-20) mg/dL Creatinine 1.10 (0.66-1.25) mg/dL Glucose 124 H (74-99) mg/dL Calcium 8.8 (8.4-10.2) mg/dL Current Medications Generic Name Dose Route Start Last Admin Trade Name Freq PRN Reason Stop Dose Admin Acetaminophen/Butalbital/Caffeine 1 each 03/12/19 21:41 Fioricet 50-325-40 PO Q8H PRN Migraine Headache Hydrocodone Bitart/Acetaminophen 1 each 03/12/19 22:00 03/12/19 22:29 Hiram 7.5-325 PO 1 each TID MARYLOU Administration Albuterol Sulfate 2.5 mg 03/12/19 21:41 Ventolin Nebulized INHALATION RT-Q6H PRN Shortness Of Breath Albuterol/Ipratropium 3 ml 03/13/19 02:00 03/13/19 01:55 Duoneb 0.5 Mg-3 Mg/3 Ml Soln INHALATION Not Given RT-Q6H [facility] Atorvastatin Calcium 20 mg 03/13/19 21:00 Lipitor PO HS [facility] Budesonide/Formoterol Fumarate 1 puff 03/13/19 08:00 03/12/19 22:03 Symbicort 80-4.5 Mcg Inhaler INHALATION 1 puff RT-BID MARYLOU Administration Citalopram Hydrobromide 40 mg 03/13/19 09:00 Celexa PO DAILY MARYLOU Clonazepam 0.5 mg 03/12/19 21:41 Klonopin PO TID PRN Anxiety Gabapentin 800 mg 03/12/19 22:00 03/12/19 22:29 Neurontin PO 800 mg TID MARYLOU Administration Hydroxyzine Pamoate 50 mg 03/12/19 21:41 Vistaril PO TID PRN Anxiety Sodium Chloride 1,000 mls @ 100 mls/hr 03/12/19 19:15 03/13/19 06:29 Saline 0.9% IV 100 mls/hr .Q10H MARYLOU Administration Lamotrigine 200 mg 03/13/19 09:00 Lamictal PO BID MARYLOU Naproxen 500 mg 03/13/19 09:00 Naprosyn PO BID MARYLOU Nicotine 1 patch 03/12/19 22:15 03/12/19 22:30 Habitrol 21mg/24hr Patch TRANSDERM 1 patch DAILY MARYLOU Administration Nitroglycerin 0.4 mg 03/12/19 19:02 Nitrostat SUBLINGUAL Q5M PRN Chest Pain Eslicarbazepine 800 mg 03/13/19 09:00 Acetate [Aptiom] 800 PO Mg DAILY MARYLOU Pantoprazole Sodium 40 mg 03/13/19 07:30 03/13/19 06:29 Protonix PO 40 mg DAILY@0730 MARYLOU Administration Polyethylene Glycol 17 gm 03/13/19 09:00 Miralax PO DAILY [facility] Prednisone 40 mg 03/13/19 09:00 PO DAILY [facility] Quetiapine Fumarate 400 mg 03/13/19 21:00 Seroquel PO HS MARYLOU Quetiapine Fumarate 100 mg 03/13/19 09:00 Seroquel PO BID [facility] Senna/Docusate Sodium 1 each 03/12/19 21:41 Senokot-S PO HS PRN Constipation Intake and Output 03/12/19 03/13/19 03/13/19 22:59 06:59 14:59 Output Total 475 300 Balance -475 -300 Output: Urine 475 300 Other: # Voids 1 # Bowel Movements 1 Weight 91.626 kg 92.3 kg 03/13/19 02:12 03/13/19 02:12 EKG Interpretations (text) EKG shows normal sinus rhythm with no acute changes. Prolonged QT interval noted. Assessment and Plan Plan: Assessment and plan #1 syncope, rule out cardiac causes #2 lithium toxicity #3 history of hypertension #4 hyperlipidemia #5 COPD #6 history of epilepsy #7 bipolar and schizophrenia #8 hypothyroidism #9 nicotine dependence, patient's smokes 2 packs of cigarettes per day Plan We will obtain an echocardiogram with Doppler study, check orthostatic heart rate and blood pressure. Monitor for any arrhythmias. Further recommendations to follow.\\\\ DNP note has been reviewed, I agree with a documented findings and plan of care. Patient was seen and examined.
[2019-03-13] MEDS: POLYETHYLENE GLYCOL 3350 17 GM POWD.PACK PO SCH (08:56)
[2019-03-13] MEDS: NICOTINE 21MG/24HR PATCH TRANSDERM SCH (08:56)
[2019-03-13] MEDS: GABAPENTIN 400 MG CAP PO SCH ×3 (08:56→20:33)
[2019-03-13] MEDS: NAPROXEN 250 MG TAB PO SCH ×2 (08:57→20:33)
[2019-03-13] MEDS: lamoTRIgine 100 MG TAB PO SCH ×2 (08:58→20:34)
[2019-03-13] MEDS: HYDROcodone/APAP 7.5-325MG 1 EACH TAB PO SCH ×3 (08:58→20:34)
[2019-03-13] MEDS: predniSONE 20 MG TAB PO SCH (08:59)
[2019-03-13] MEDS: CITALOPRAM HYDROBROMIDE 20 MG TAB PO SCH (08:59)
[2019-03-13] MEDS: QUEtiapine 100 MG TAB PO SCH ×2 (09:00→20:34)
[2019-03-13] MEDS: Eslicarbazepine Acetate [Aptiom] 800 MG PO SCH (09:04)
--- NOTE | 2019-03-13 09:59 | ECHOF ---
Referral Reason:syncope MEASUREMENTS -------- HEIGHT: 162.6 cm WEIGHT: 92.1 kg BP: 107/69 IVSd: 1.3 cm (0.6 - 1.1) LVIDd: 5.2 cm (3.9 - 5.3) LVPWd: 1.6 cm (0.6 - 1.1) IVSs: 1.4 cm LVIDs: 4.6 cm LVPWs: 1.7 cm LA Diam: 3.5 cm (2.7 - 3.8) Ao Diam: 3.7 cm (2.0 - 3.7) AV Cusp: 2.5 cm (1.5 - 2.6) LA Diam: 3.6 cm (2.7 - 3.8) MV EXCURSION: 20.130 mm (> 18.000) MV EF SLOPE: 130 mm/s (70 - 150) EPSS: 0.9 cm MV E Keith: 0.52 m/s MV DecT: 125 ms MV A Keith: 0.57 m/s MV E/A Ratio: 0.92 RAP: 5.00 mmHg RVSP: 28.77 mmHg FINDINGS -------- Sinus rhythm. This was a techncally difficult study with suboptimal views, , Lumason utilized for enhancement of im ages. The left ventricular size is normal. There is mild concentric left ventricular hypertrophy. Overa ll left ventricular systolic function is mildly impaired with, an EF between 45 - 50 %. The right ventricle is normal in size. The left atrial size is normal. The right atrial size is normal. There is mild aortic valve sclerosis. There is no evidence of aortic regurgitation. Mild mitral annular calcification present. Mild mitral regurgitation is present. Mild tricuspid regurgitation present. Right ventricular systolic pressure is normal at < 35 mmHg. There is no evidence of pulmonary hypertension. There is no pulmonic regurgitation present. The aortic root size is normal. There is no pericardial effusion. CONCLUSIONS -------- 1. Sinus rhythm. 2. This was a techncally difficult study with suboptimal views, , Lumason utilized for enhancement of images. 3. The left ventricular size is normal. 4. There is mild concentric left ventricular hypertrophy. 5. Overall left ventricular systolic function is mildly impaired with, an EF between 45 - 50 %. 6. The right ventricle is normal in size. 7. The left atrial size is normal. 8. The right atrial size is normal. 9. There is mild aortic valve sclerosis. 10. Mild mitral annular calcification present. 11. Mild mitral regurgitation is present. 12. Mild tricuspid regurgitation present. 13. Right ventricular systolic pressure is normal at < 35 mmHg. 14. There is no evidence of pulmonary hypertension. 15. There is no pulmonic regurgitation present. 16. The aortic root size is normal. 17. There is no pericardial effusion. COLLABORATIVE TEACHER: Noelle Wright RDCS
[2019-03-13 11:28] VITALS: BMI 28.3
--- NOTE | 2019-03-13 13:22 | P.CN ---
Psychiatric Consult - . Consult date: 03/13/19 Consult:: IDENTIFYING DATA: The patient is a 53-year-old male referred from [facility] secondary to history of syncope and lithium toxicity. His lithium level on presentation to [facility] was 2.3. The hospitalist consult to psychiatry for "my eating, lithium toxicity." HISTORY OF PRESENT ILLNESS: I reviewed the medical record and interviewed the patient. He is known to our service from admission in April of this year. He was discharged with the diagnoses of major depressive disorder recurrent. His discharge medications included Pristiq ER, Seroquel 25 mg twice a day and 600 mg at bedtime, Lamictal 200 mg twice a day, Aricept 10 mg at bedtime and Wellbutrin XL 300 mg daily. He stated that the psychiatrist at [facility] prescribed lithium for treatment of his chronic depression. He went several days without "eating or drinking" before he developed episodes of syncope. He talked about his "forcing" him to eat or drink. He denied that he had taken higher doses of lithium and alleged that he takes medication as prescribed. He complained of persistent feelings depression but denied suicidal ideation, plan or intent. He denied that he had taken doses of his psychotropic medications including lithium as a suicide attempt. He complained of persistent anxiety and alleged that he is unable to control his anxiety. He did not describe periods of increased anxiety disorder with panic attacks. He denied experiencing such psychotic symptoms as hallucinations, paranoia or ideas of reference. He denied use of alcohol and intrusive drugs to get high, help her sleep or changes mood. The lithium was not continued in the lithium level from 03/13/2019 was 1.7. PAST PSYCHIATRIC HISTORY: He has a history of mental illness variously diagnosed as a depressive disorder or bipolar disorder. He enrolled at [facility]. In addition to lithium his psychotropic medications include Seroquel, Lamictal, Klonopin and Celexa. PAST MEDICAL HISTORY: COPD, GERD, hyperlipidemia, hypertension, seizure disorder, sleep apnea, thyroid disorder. ALLERGIES: Known drug ALLERGIES. SUBSTANCE USE HISTORY: He denied history of alcohol use problems or treatment for alcohol use problems. He denied history of use of drugs such as cocaine, "crack", heroin, or opioid. Medications to get high, help with sleep or changes mood. FAMILY PSYCHIATRIC/SUBSTANCE USE HISTORY: His son from a heroin overdose. SOCIAL HISTORY: He was born and raised in [place]. He is illiterate; he cannot read or write. He described learning problems and poor academic performance throughout his school years. He was expelled from school in the 10th grade for behavioral problems. He alleged that he was "passed along" from great grade even though he was unable to read, write or perform at great expectation. He did not obtain a GED. He is and lives in [place] [place] [facility] with his . He has been unemployed since 2005 when he fell off a roof and sustained multiple fractures. 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. He had 2 children. As mentioned above, son of a heroin overdose. MENTAL STATUS EXAM: He presented as a casually groomed 53-year-old male who looked older than his stated age. He made eye contact and attended to the interview. He had no distinguishing features or prominent physical maladies. He had a blunted facial expression. He was alert and oriented to person, place and time. He showed slight psychomotor retardation but no abnormal movements. Speech was spontaneous with decreased rate, rhythm and volume. His affect was depressed but stable and appropriate. He denied suicidal ideation or wishes. He denied homicidal ideation. He denied feeling hopeless, helpless or worthless. He did not express obsessions or ruminations. He did not express ideas reference, paranoid ideation or delusions. His thinking was concrete but his associations were coherent, logical and goal directed. He denied hallucinations and did not appear to be responding to internal stimuli. IMPRESSIONS: He is a 53-year-old male who has a history of a depressive disorder. [facility] with history of acute lithium toxicity as well as episodes of syncope. He described a period of about one week where he was not drinking or eating. I suspect that the lithium toxicity was a result of inadequate oral fluid intake. There is no indication for acute psychiatric treatment at this time PLAN: There is no indication for transfer to the psychiatric unit. Do not continue lithium and refer him to his psychiatrist, Dr. Mallory, at [facility] for continued psychiatric treatment. Continue his other psychotropic medications including Celexa 40 mg daily, Klonopin 0.5 mg 3 times a day when necessary, Lamictal 200 mg twice a day and Seroquel 100 mg twice a day and 400 mg at bedtime. Thank you for the consult. 03/13/19 12:45
--- NOTE | 2019-03-13 13:33 | P.CNNES ---
History of Present Illness Consult date: 03/13/19 Reason for Consult: Syncope, likely lithium toxicity Chief complaint: Syncope History of Present Illness: HISTORY OF PRESENT ILLNESS: Thank you for allowing me to evaluate Mr. El Renteria. Mr. Renteria is a 53-year-old man with past medical history of COPD, GERD, hyperlipidemia, hypertension, seizure disorder, sleep apnea, frequent vomiting, lumbar compression fracture, ADHD, anxiety, bipolar, depression, who presented to an outside hospital for syncope, where patient was found with lithium toxicity of 2.3, transferred to [facility] for syncope. Patient states that he was standing near a window last night when he suddenly lost consciousness and fell to the floor. His was with him at the time. He woke up within seconds, and he felt a bit fuzzy but came right back to baseline. He had another episodes, and as such, he decided to come to the hospital. Patient states that he's never had similar episodes before. He does endorse having had a seizure about 8 months ago although he doesn't remember what his seizure entailed. During last night's episode, patient did not have any tongue biting, urinary/bowel incontinence. Patient has been compliant with his meds. Patient st ates that he was released from a mental hospital last Saturday, and he has been stressed but he denies overdosing on any meds. He was hospitalized for depression, suicidal ideation. At this time, patient denies any suicidal/homicidal thoughts or visual/auditory hallucinations. Patient states he had poor appetite for several days prior to hospitalization, and once he came home, his has been trying to make sure patient eats. Patient denies any headache, nausea, vomiting, dizziness, weakness, numbness, tingling, fever, recent sickness, diarrhea/constipation, chest pain. Patient complaining of how his body is shaking after getting a breathing treatment this morning. Patient endorses having double vision since about 2 days ago. PAST MEDICAL HISTORY: COPD, GERD, hyperlipidemia, hypertension, seizure disorder, sleep apnea, frequent vomiting, lumbar compression fracture, ADHD, anxiety, bipolar, depression PAST SURGICAL HISTORY: Adenoidectomy, appendectomy, cholecystectomy, heart catheterization, hernia repair, tonsillectomy, lap band in 2010, removal, hernia repair HOME MEDICATIONS: Fioricet, albuterol, atorvastatin, Symbicort, citalopram, clonazepam, Aptiom, gabapentin, lamotrigine, pantoprazole, prednisone, Seroquel, lithium ALLERGIES: NKDA SOCIAL HISTORY: Current activity smoker. Endorses marijuana use FAMILY HISTORY: Mother is healthy. Father had lymphoma REVIEW OF SYSTEMS: The 14 systems are reviewed and no additional points are identified compared to the review of systems documented history and physical PHYSICAL EXAMINATION: VITAL SIGNS: T 98.3 HR 78 RR 18 BP 115/78 O2 sat 97% on RA GEN.: NAD, pleasant and cooperative HEENT: NCAT, sclera without icterus NECK: Supple SKIN AND EXTREMITIES: Warm to touch, no edema NEURO: MENTAL STATUS: Patient alert and oriented to self, place, time. Able to name the current president. Speech fluent, able to name and repeat, following all commands readily. No right and left disorientation, neglect. CRANIAL NERVES II THROUGH XII: II: Pupils are equal and reactive to light symmetrically. Visual donovan are intact. III, IV, : No ptosis. Extraocular movements full. No nystagmus. V: Facial sensation intact from V1-3. VII. No clear facial asymmetry. VIII: Hearing intact to finger rub bilaterally. IX, X: Symmetric palate elevation. XI: Shoulder shrug intact. XII: Tongue midline without fasciculation or atrophy. MOTOR: Normal bulk/tone. No pronator drift. bilateral UE tremor with action. Strength is 5/5 throughout all 4 extremities. SENSORY: Intact to light touch in all 4 extremities. Romberg is positive REFLEXES: 2+ in b/l UE. brisk in b/l LE. Toes are downgoing. Clonus in R foot. COORDINATION: Finger to nose intact. No dysmetria. GAIT: Narrow-based and stable. Able to toe/heel walk. Difficulty with tandem walking. DIAGNOSTIC TESTING: LABORATORY: WBC 11.4 hemoglobin 11.5 platelet 193 sodium 138 potassium 4.3 chloride 111 bicarb 24 BUN 20 creatinine 1.10 glucose 124 troponin <0.012 urinalysis negative Total cholesterol 89 LDL 22 HDL 31 triglycerides 180 lithium level I.8-> 1.7 C. diff negative IMAGING: Brain MRI with and without contrast September 2016: No suspicious finding is seen to account for patient's symptoms. No evidence of a recent infarct. TTE 03/13/19: SR. RV, LV, RA, LA sizes are normal EF 45-50%. Bilateral carotid Doppler 03/13/2019: Mild degree of huang scale atheromatous plaquing with no sonographically evident hemodynamically significant stenosis within either visualized carotid arterial system. ASSESSMENT/RECOMMENDATIONS: 3-year-old man with past medical history of COPD, GERD, hyperlipidemia, hypertension, seizure disorder, sleep apnea, frequent vomiting, lumbar compression fracture, ADHD, anxiety, bipolar, depression, who presented to an outside hospital for syncope, where patient was found with lithium toxicity of 2.3, transferred to [facility] for syncope. On exam, patient endorsing monocular double vision along with tremor and R foot clonus. The episode of syncope, clonus, and tremor can all occur in the setting of lithium toxicity. Patient will be seen by psychiatrist to make recommendations about his meds. Patient states that he sees a neurologist where he got an EEG recently. Patient has been compliant with all his medications. Patient needs to have a follow up outpatient neurology appointment with his neurologist within 2-3 weeks of discharge. No changes to his seizure meds at this time. Neurology will sign off at this time. Neurology is not available over the weekend in-house. However, feel free to [employer] message me over the weekend if you have any questions or concerns Past Medical History Past Medical History: COPD, GERD/Reflux, Hyperlipidemia, Hypertension, Musculoskeletal Disorder, Pneumonia, Respiratory Disorder, Seizure Disorder, Skin Disorder, Sleep Apnea/CPAP/BIPAP, Thyroid Disorder Additional Past Medical History / Comment(s): FREQUENT VOMITING, HX ABSCESSES LEGS with MRSA, CELLULTIS. HX SEIZURE X2, 2011, BIT PART OF TONGUE OFF. NOT ABLE TO USE BIPAP. OLD FX BACK, 2002. HX MRSA Neck/Face/RT THIGH/LT CALF. ENLARGED HEART. CHRONIC BRONCHITIS. "past compression fx l1" History of Any Multi-Drug Resistant Organisms: MRSA Date of last positivie culture/infection: 03/07/16 MDRO Source:: LEFT LEG Past Surgical History: Adenoidectomy, Appendectomy, Cholecystectomy, Heart Catheterization, Hernia Repair, Tonsillectomy Additional Past Surgical History / Comment(s): ABD HERNIA SURG X3; LAP BAND 2009 EST. 310-15 LAP REMOVAL OF LAP BAND AND PORT. COLONOSCOPY, EGD. EXC Areas of MRSA on face, neck, LEGS 2015. VENTRAL HERNIA REPAIR 07/2016, Past Anesthesia/Blood Transfusion Reactions: Previous Problems w/ Anesthesia Additional Past Anesthesia/Blood Transfusion Reaction / Comment(s): 1985 DURING T&A SURG, DEVELOPED FLUID IN LUNGS, PUT ON VENT. Past Psychological History: ADD/ADHD, Anxiety, Bipolar, Depression Additional Psychological History / Comment(s): . Smoking Status: Current every day smoker Past Alcohol Use History: None Reported Additional Past Alcohol Use History / Comment(s): HX SMOKING OFF/ON SINCE AGE 12, UP TO 1 PPD, QUIT JUNE 2016 Past Drug Use History: Marijuana Additional Drug Use History / Comment(s): USING MEDICAL MARIJUANA, DAILY. (PT STATED WENT TO REHAB IN 1998 D/T USE OF COCAINE/CRACK). INSTRUCTED NO MARIJUANA USE 24 HR PRIOR TO PROCEDURE - Past Family History Mother Family Medical History: No Reported History Additional Family Medical History / Comment(s): PT STATED MOM IS HEALTHY Father Family Medical History: Cancer Additional Family Medical History / Comment(s): LYMPHOMA Medications and Allergies Home Medications Medication Instructions Recorded Confirmed Type lamoTRIgine [LaMICtal] 200 mg PO BID 04/21/15 03/12/19 History Atorvastatin Calcium [Lipitor] 20 mg PO HS 09/19/16 03/12/19 History HYDROcodone/APAP 7.5-325MG [[place] 1 tab PO TID 04/25/18 03/12/19 History 7.5-325] Eslicarbazepine Acetate [Aptiom] 800 mg PO DAILY 01/08/19 03/12/19 History Gabapentin 800 mg PO TID 01/08/19 03/12/19 History Omeprazole 40 mg PO DAILY 01/08/19 03/12/19 History QUEtiapine [SEROquel] 400 mg PO HS 01/08/19 03/12/19 History clonazePAM [KlonoPIN] 0.5 mg PO TID PRN 01/08/19 03/12/19 History hydrOXYzine PAMOATE 50 mg PO TID PRN 01/08/19 03/12/19 History Albuterol Inhaler [Ventolin Hfa 2 puff INHALATION RT-Q6H PRN 03/12/19 03/12/19 History Inhaler] Butalb/APAP/Caff 50-325-40Mg 1 tab PO Q8H PRN 03/12/19 03/12/19 History [Fioricet 50-325-40] Citalopram Hydrobromide [CeleXA] 40 mg PO DAILY 03/12/19 03/12/19 History Doxycycline Hyclate [Vibramycin] 100 mg PO BID 03/12/19 03/12/19 History Fluticasone/Vilanterol [Breo 1 puff INHALATION RT-DAILY 03/12/19 03/12/19 History Ellipta 100-25 Mcg Inhaler] Ipratropium-Albuterol Nebulize 3 ml INHALATION RT-Q6H 03/12/19 03/12/19 History [Duoneb 0.5 mg-3 mg/3 ml Soln] Lisinopril [Zestril] 20 mg PO DAILY 03/12/19 03/12/19 History Naproxen 500 mg PO BID 03/12/19 03/12/19 History Polyethylene Glycol 3350 [Miralax] 17 gm PO DAILY 03/12/19 03/12/19 History QUEtiapine [SEROquel] 100 mg PO BID 03/12/19 03/12/19 History Sennosides-Docusate Sodium 1 tab PO HS PRN 03/12/19 03/12/19 History [Senokot-S] predniSONE 40 mg PO DAILY 03/12/19 03/12/19 History Allergies Allergy/AdvReac Type Severity Reaction Status Date / Time No Known Allergies Allergy Verified 03/12/19 20:19 Physical Examination - Vital Signs Vital Signs: Vital Signs Temp Pulse Pulse Resp BP BP Pulse Ox 03/13/19 09:00 80 03/13/19 08:50 84 96 03/13/19 03:40 98.2 F 74 18 107/69 94 L 03/13/19 00:00 98.3 F 78 18 115/78 97 03/12/19 23:09 98.4 F 67 18 107/65 94 L 03/12/19 22:12 68 03/12/19 22:04 68 03/12/19 19:57 67 18 116/70 97 03/12/19 18:53 98 F 63 18 99/62 96 Intake and Output 03/12/19 03/13/19 03/13/19 22:59 06:59 14:59 Intake Total 360 Output Total 475 300 Balance -475 -300 360 Intake: Oral 360 Output: Urine 475 300 Other: # Voids 1 # Bowel Movements 1 Weight 91.626 kg 92.3 kg Results - Laboratory Findings CBC and BMP: 03/13/19 02:12 03/13/19 02:12 Abnormal Lab Findings: Abnormal Labs 03/13/19 03/13/19 02:12 02:12 WBC 11.4 H RBC 4.10 L Hgb 11.5 L Hct 35.2 L RDW 16.0 H Chloride 111 H Glucose 124 H Triglycerides 180 H HDL Cholesterol 31 L
[2019-03-13] MEDS ORDERED: QUEtiapine 400 MG TAB PO SCH (21:00)
[2019-03-13] MEDS ORDERED: ATORVASTATIN 20 MG TAB PO SCH (21:00)
[2019-03-14] MEDS: IPRATROPIUM-ALBUTEROL 3 ML NEB INHALATION SCH ×3 (00:57→13:25)
[2019-03-14 04:05] VITALS: PULSE 70
[2019-03-14] MEDS: PANTOPRAZOLE 40 MG TABLET PO SCH (06:46)
[2019-03-14 07:03] LABS: Anisocytosis Slight; Basophils % (A) 0 %; Eosinophils # (A) 0.1 k/uL (0-0.7); Eosinophils % (A) 1 %; HCT 35.2 % (39.0-53.0); HGB 11.2 gm/dL (13.0-17.5); Lymphocytes # (A) 2.1 k/uL (1.0-4.8); Lymphocytes % (A) 20 %; MCH 27.2 pg (25.0-35.0); MCHC 31.7 g/dL (31.0-37.0); MCV 85.8 fL (80.0-100.0); Mean Platelet Volume 7.7; Monocytes # (A) 0.6 k/uL (0-1.0); Monocytes % (A) 5 %; Neutrophils # (A) 7.8 k/uL (1.3-7.7); Neutrophils % (A) 72 %; Platelet Count 166 k/uL (150-450); RBC 4.11 m/uL (4.30-5.90); RDW 16.1 % (11.5-15.5); WBC 10.8 k/uL (3.8-10.6)
--- NOTE | 2019-03-14 07:05 | P.PN ---
Subjective Progress Note Date: 03/13/19 Principal diagnosis: This is a 53 year old male who was recently admitted for multiple episodes of syncope and is being closely monitored. Multiple medical consultations following. Currently patient is up and walking the halls with no recent episodes of dizziness, lightheadedness, or syncope. Patient underwent a carotid doppler showing mild degree of huang scale atheromatous plaquing or evidence of significant stenosis. Patient also had an echo done showing overall left systoli c function is mildly impaired with an ef of 45-50%. Objective - Vital Signs Vital signs: Vital Signs Temp 98.3 F 03/13/19 08:00 Pulse 74 03/13/19 12:00 Resp 16 03/13/19 12:00 BP 132/83 03/13/19 12:00 Pulse Ox 96 03/13/19 12:00 Intake & Output 03/12/19 03/13/19 03/13/19 18:59 06:59 18:59 Intake Total 720 Output Total 775 Balance -775 720 Weight 91.626 kg 92.3 kg 92.3 kg Intake: Oral 720 Output: Urine 775 Other: # Voids 1 1 # Bowel Movements 1 - Exam GENERAL: The patient is alert and oriented x3, not in any acute distress. Well developed, well nourished. Temp is 98.3F, pulse is 78, resp are 16, BP is 132/78, sp02 is 96% on room air. HEENT: Pupils are round and equally reacting to light. EOMI. No scleral icterus. No conjunctival pallor. Normocephalic, atraumatic. No pharyngeal erythema. No thyromegaly. CARDIOVASCULAR: S1 and S2 present. No murmurs, rubs, or gallops. PULMONARY: diminished breath sounds at the bases with no wheezing or crackles noted. ABDOMEN: Soft, non-tender, positive bowel sounds heard MUSCULOSKELETAL: No joint swelling or deformity. EXTREMITIES: No cyanosis, clubbing, or pedal edema. NEUROLOGICAL: Gross neurological examination did not reveal any focal deficits. SKIN: No rashes. - Labs CBC & Chem 7: 03/13/19 02:12 03/13/19 02:12 Labs: Abnormal Lab Results - Last 24 Hours (Table) 03/13/19 03/13/19 Range/Units 02:12 02:12 WBC 11.4 H (3.8-10.6) k/uL RBC 4.10 L (4.30-5.90) m/uL Hgb 11.5 L (13.0-17.5) gm/dL Hct 35.2 L (39.0-53.0) % RDW 16.0 H (11.5-15.5) % Chloride 111 H (98-107) mmol/L Glucose 124 H (74-99) mg/dL Triglycerides 180 H (<150) mg/dL HDL Cholesterol 31 L (40-60) mg/dL Assessment and Plan Assessment: Syncope for evaluation Possible lithium toxicity Relative hypotension History of chronic obstructive pulmonary disease GERD Hyperlipidemia History of hypertension History of DJD History of pneumonia History of seizure disorder Sleep apnea next line history of hypothyroidism [place] history of frequent vomiting History of cellulitis History of MRSA History of cardiac catheterization next line history of cholecystectomy History of attention deficit disorder, attention deficit hyperactivity disorder History of anxiety, bipolar depression History of continued ongoing nicotine dependence Recommendations and discussion: Recommend to continue current medications, management, and symptomatic treatment. Multiple medical consultations following closely. Patient underwent an echo and carotid doppler as mentioned above. Patient was seen by neurology and recommending a follow up with his neurologist upon discharge. Psychiatry was consulted and recommends outpatient follow-up with his psychiatrist. Carl is being held at this time. Patient has been up and walking the halls with no reports of dizziness, lightheadedness, or syncope. Will continue to monitor closely. Guarded prognosis. Further recommendations to follow. Possible discharge in 24-48 hours.
[2019-03-14 07:16] LABS: African American GFR (CKD) >90 (>60 ml/min/1.73 sqM); Anion Gap 3 mmol/L; Blood Urea Nitrogen 14 mg/dL (9-20); Calcium 9.2 mg/dL (8.4-10.2); Carbon Dioxide 27 mmol/L (22-30); Chloride 111 mmol/L (98-107); Glucose 110 mg/dL (74-99); Non-African American GFR(CKD) 85 (>60 ml/min/1.73 sqM); Potassium 4.5 mmol/L (3.5-5.1); Sodium 141 mmol/L (137-145)
[2019-03-14] MEDS: lamoTRIgine 100 MG TAB PO SCH (08:26)
[2019-03-14] MEDS: GABAPENTIN 400 MG CAP PO SCH (08:26)
[2019-03-14] MEDS: HYDROcodone/APAP 7.5-325MG 1 EACH TAB PO SCH (08:26)
[2019-03-14] MEDS: NICOTINE 21MG/24HR PATCH TRANSDERM SCH (08:26)
[2019-03-14] MEDS: predniSONE 20 MG TAB PO SCH (08:27)
[2019-03-14] MEDS: CITALOPRAM HYDROBROMIDE 20 MG TAB PO SCH (08:27)
[2019-03-14] MEDS: QUEtiapine 100 MG TAB PO SCH (08:28)
[2019-03-14 08:32] VITALS: BP 124/81; RESP 16; TEMP 98.4
[2019-03-14] MEDS: SYMBICORT 80-4.5 MCG INHALER INHALATION SCH (09:11)
[2019-03-14] MEDS: POLYETHYLENE GLYCOL 3350 17 GM POWD.PACK PO SCH (12:35)
[2019-03-14] MEDS: SODIUM CHLORIDE 0.9% 1,000 ML IV SCH (12:36)
[2019-03-14] MEDS: Eslicarbazepine Acetate [Aptiom] 800 MG PO SCH (12:36)
--- NOTE | 2019-03-14 14:08 | PN ---
PROGRESS NOTE This patient is admitted with a lithium toxicity. He remains comfortable. No distress is noted. No dysrhythmias are noted. The patient's heart rate is 65 per minute, blood pressure is 124/81 mmHg. First and second heart sounds are normal. Lungs are clinically clear to auscultation and percussion. Patient's condition remained stable cardiac-mahmood. I will see the patient p.r.n. MMODL / IJN: [id number] /
--- NOTE | 2019-03-14 22:37 | DS ---
DISCHARGE SUMMARY DATE OF SERVICE: 03/14/2019 FINAL DIAGNOSES: 1. Syncope, possibly vasovagal. 2. Possible lithium toxicity present on admission. 3. Relative hypotension, improved. 4. Chronic obstructive pulmonary disease. 5. Gastroesophageal reflux disease. 6. Hyperlipidemia. 7. Hypertension. 8. History of degenerative joint disease. 9. History of pneumonia. 10.History of seizure disorder. 11.Sleep apnea. 12.History of cellulitis. 13.History of Methicillin-resistant Staphylococcus aureus. 14.History of cardiac catheterization. 15.History of hysterectomy. 16.History of attention-deficit disorder, attention-deficit/hyperactivity disorder. 17.History of anxiety, bipolar depression. 18.History of continued ongoing nicotine dependence. DISCHARGE DISPOSITION: The patient will be discharged in stable condition with guarded prognosis. HISTORY OF PRESENT ILLNESS: This 53-year-old gentleman with a past medical history of multiple medical problems admitted with multiple symptomatology including syncope and as well as D10 toxicity. Patient improved significantly. The Poison Control was contacted. The lithium level improved to 1 and the patient will be discharged in stable condition with guarded prognosis. On exam, vitals are stable. Cardiovascular: S1, S2. Abdomen soft. Nervous system: No focal deficits. Recommend to hold the lithium now and follow closely with the primary physician and as well as a psychiatrist, Dr. Mallory locally in [place]. DISCHARGE ADVICE AND MEDICATIONS: 1. Diet is cardiac diet. 2. Activity limited until followup. 3. Follow up with Dr. Mallory in 2-3 days. 4. Follow up with Dr. Carson as recommended. DISCHARGE MEDICATIONS: 1. Aptiom 800 mg p.o. daily. 2. Breo Ellipta 1 puff daily. 3. Celexa 40 mg. 4. DuoNeb q.6h. 5. Fioricet 1 p.o. q.8 p.r.n. 6. Gabapentin 800 mg p.o. t.i.d. 7. Hydroxyzine 50 mg t.i.d. p.r.n. 8. Klonopin 0.5 mg t.i.d. p.r.n. 9. Lamictal 200 mg p.o. b.i.d. 10.Lipitor 20 mg q.h.s. 11.MiraLAX 17 g p.o. daily. 12.Naprosyn 500 mg p.o. b.i.d. 13.[place] 7.5 p.o. t.i.d. 14.Omeprazole 40 mg p.o. daily. 15.Senokot-S 1 tablet p.o. q.h.s. 16.Seroquel 400 mg q.h.s. and 100 mg p.o. b.i.d. 17.Ventolin HFA 2 puffs q.6h p.r.n. 18.Vibramycin 100 mg p.o. b.i.d. 19.Zestril 20 mg p.o. daily. Once again, the patient being discharged home in stable condition with guarded prognosis. MMODL / IJN: [id number] /
--- NOTE | 2019-03-19 00:44 | CDI ---
Documentation Clarification Form Date: 03/19/19 From: Shayy Meza Phone: If you have a question about this query, please contact Fiorella Hdz, [employer] at [phone] between 8am and 5pm. Admit Date: 03/12/19 Discharge Date: 03/14/19 Patient Name: El Renteria Visit Number: [id number] ATTENTION: The Clinical Documentation Specialists (CDI) and [employer] Coding Staff appreciate your assistance in clarifying documentation. Please respond to the clarification below the line at the bottom and electronically sign. The CDI & [employer] Coding staff will review the response and follow-up if needed. Please note: Queries are made part of the Legal Health Record. If you have any questions, please contact the author of this message via ITS. Dear Mame Schmidt., Patient came with syncope and found to have lithium toxicity. Consultation report states "the episode of syncope, clonus, and tremor can all occur in the setting of lithium toxicity and under home-medication. Progress note states "suspect that the lithium toxicity was a result of inadequate oral fluid intake". -DS note stated as the lithium level improved to 1 and the patient will be discharged in stable condition with guarded prognosis. Patient history/risk factors:Depression, Syncope, Epilepsy, ADHD Vital Signs: Temp: 98 F; Pulse:63; Resp:18; BP 99/62; O2 sat:96. Treatment: The Poison Control was contacted. In your professional opinion, Can you please clarify the diagnosis if known? Poisoning/overdose/Toxicity of [place] Adverse effect of lithium Other, please specify Unable to determine Poisoning/overdose/Toxicity of [place] MTDD
== END 2019-03-14 14:56 | disposition home or self-care (01) | DRG 918 ==
LOC: EC 18:47 → 3SCARD 19:03
PROVIDERS: ADMIT Hospitalist; ATTEND Hospitalist
DX: T43.591A Poisoning by other antipsychotics and neuroleptics, accidental (unintentional), initial encounter (principal); J44.9 Chronic obstructive pulmonary disease, unspecified; K21.9 Gastro-esophageal reflux disease without esophagitis; E78.5 Hyperlipidemia, unspecified; G40.909 Epilepsy, unspecified, not intractable, without status epilepticus; F90.9 Attention-deficit hyperactivity disorder, unspecified type; F41.9 Anxiety disorder, unspecified; F20.9 Schizophrenia, unspecified; F31.9 Bipolar disorder, unspecified; R55 Syncope and collapse; F17.210 Nicotine dependence, cigarettes, uncomplicated; M19.90 Unspecified osteoarthritis, unspecified site; G47.30 Sleep apnea, unspecified; H53.2 Diplopia; I95.9 Hypotension, unspecified; E03.9 Hypothyroidism, unspecified; I10 Essential (primary) hypertension; Z79.51 Long term (current) use of inhaled steroids; Z79.891 Long term (current) use of opiate analgesic; Z79.899 Other long term (current) drug therapy; Z86.14 Personal history of Methicillin resistant Staphylococcus aureus infection; Z90.49 Acquired absence of other specified parts of digestive tract; Z90.89 Acquired absence of other organs; Z98.84 Bariatric surgery status; Z87.2 Personal history of diseases of the skin and subcutaneous tissue; Z87.19 Personal history of other diseases of the digestive system; Z87.01 Personal history of pneumonia (recurrent); Z86.19 Personal history of other infectious and parasitic diseases; Z87.81 Personal history of (healed) traumatic fracture; Z91.81 History of falling; Z98.890 Other specified postprocedural states; Z80.7 Family history of other malignant neoplasms of lymphoid, hematopoietic and related tissues
CPT/HCPCS: 36415; 80048; 80061; 80178; 81003; 84484; 85025; 87324; 93306; 93880; 94640; 94760; 99285

== ENCOUNTER → 2021-08-31 | Outpatient (CLI) | payer MEDICARE, OTHER ==
[2021-08-31 23:24] LABS: ALT 16 U/L (10-49); AST 14 U/L (14-35); African American GFR (CKD) 90.2 (60.0-200.0); BUN/Creat Ratio 12.95 Ratio (12.00-20.00); Blood Urea Nitrogen 13.6 mg/dL (9.0-27.0); Carbon Dioxide 28.9 mmol/L (20.0-27.5); Chloride 106 mmol/L (96-109); Chol/HDL Ratio 4.92 Ratio; Glucose 98 mg/dL (70-110); LDL Cholesterol,Calculated 115.6 mg/dL (0.0-131.0); Non-African American GFR(CKD) 77.9 (60.0-200.0); Potassium 4.1 mmol/L (3.5-5.5); Sodium 141 mmol/L (135-145)
[2021-08-31 23:27] LABS: HCT 39.4 % (39.6-50.0); HGB 12.5 g/dL (13.0-17.0); MCH 30.3 pg (27.0-32.0); MCHC 31.7 g/dL (32.0-37.0); MCV 95.6 fL (80.0-97.0); Mean Platelet Volume 11.4 fL (9.5-12.2); NRBC Per 100 WBC 0 /100 WBCS (0.0-0.0); Platelet Count 156 X 10*3/uL (140-440); RBC 4.12 X 10*6/uL (4.40-5.60); RDW 13.8 % (11.5-14.5)
== END | disposition home or self-care (01) ==
LOC: LABWHC1 17:21
PROVIDERS: ATTEND Internal Medicine Cardiovascular Disease
DX: E78.2 Mixed hyperlipidemia (principal)
CPT/HCPCS: 36415; 80048; 80061; 84450; 84460; 85027

== ENCOUNTER 2021-09-06 06:05 | Day surgery (SDC) | payer MEDICARE, OTHER ==
[2021-09-05 11:53] VITALS: BMI 30.7
[~2021-09-06 06:05] MED LIST changes: +ALPRAZolam 0.25 MG TAB PO PRN; +ALPRAZolam 0.5 MG TAB PO PRN; +ASPIRIN 325 MG TAB PO STA; +ATORVASTATIN 80 MG TAB PO STA; -LACTATED RINGERS 1,000 ML IV SCH; -LIDOCAINE 1% 20 ML VIAL (10MG/ML) FOR IV START INTRADERMA PRN; +NITROGLYCERIN SL TABS 0.4 MG TAB SUBLINGUAL PRN; +SODIUM CHLORIDE 0.9% 1,000 ML in EMPTY BAG 1 BAG IV SCH
[2021-09-06 06:56] VITALS: RESP 18; TEMP 97.3
[2021-09-06] MEDS ORDERED: HEPARIN SODIUM,PORCINE 2,500 UNIT in SODIUM CHLORIDE 0.9% 250 ML IRRIGATION PRN (07:00)
[2021-09-06] MEDS ORDERED: HEPARIN SODIUM,PORCINE 10,000 UNIT in SODIUM CHLORIDE 0.9% 1,000 ML IRRIGATION PRN (07:00)
[2021-09-06] MEDS ORDERED: fentaNYL (PF) 50 MCG/ML 2 ML AMP ONE (07:17)
[2021-09-06] MEDS ORDERED: VERAPAMIL 2.5 MG/ML 2 ML AMP ONE (07:18)
[2021-09-06] MEDS ORDERED: HEPARIN SODIUM 1,000 UN/ML (10ML VL) ONE (07:18)
[2021-09-06] MEDS ORDERED: fentaNYL (PF) 50 MCG/ML 2 ML AMP IV ONE (07:48)
[2021-09-06] MEDS ORDERED: MIDAZOLAM 2 MG/2 ML VIAL IV ONE (07:48)
[2021-09-06] MEDS ORDERED: LIDOCAINE 1% PF 10 MG/ML (5 ML AMP) SQ ONE ×2 (07:51)
[2021-09-06] MEDS ORDERED: LIDOCAINE 1% INJ 10MG/ML (30 ML VIAL-PF) SQ ONE (07:58)
[2021-09-06] MEDS ORDERED: IOPAMIDOL-370 125ML BTL INJ ONE (08:28)
--- NOTE | 2021-09-06 08:38 | CC ---
CARDIAC CATHETERIZATION REPORT INDICATION: Chest pain with abnormal stress test showing ischemia in the LAD distribution. PROCEDURE NOTE: After obtaining informed consent, left heart catheterization and coronary angiogram were performed via the right femoral artery using standard Matias catheters. Patient tolerated the procedure well without any obvious immediate complications. A femoral angiogram was performed and Angio-Seal will be deployed for hemostasis. Patient received moderate conscious sedation. Total sedation time was 23 minutes. I initially attempted right radial artery access that was unsuccessful; hence I proceeded with the femoral cath. FINDINGS: HEMODYNAMICS: Left ventricular end-diastolic pressure is around 18 mm. There is no significant gradient across the aortic valve. LEFT VENTRICULOGRAM: Left ventriculogram was not performed. ANGIOGRAPHIC DATA: Left main coronary artery appears calcified with a mild atherosclerotic plaque in the distal left main that divides into left anterior descending coronary artery and circumflex coronary artery. Circumflex coronary artery is a nondominant vessel and is free of significant disease. LAD gives off large-caliber OM branches that are free of significant stenosis. The mid LAD shows a moderate area of atherosclerotic plaque. Right coronary artery is a large dominant vessel that shows mild diffuse irregular disease without any focal obstructive lesions. CONCLUSIONS: Calcified vessels with diffuse atherosclerotic plaque in a large dominant right coronary artery and a moderate area of stenosis in mid LAD. PLAN: I am going to review the angiographic data with Dr. Durham, the on-call choir singer, and decide on further course of action. MMODL / IJN: [id number] /
[2021-09-06 13:52] VITALS: BP 136/81; PULSE 58
== END 2021-09-06 13:53 | disposition home or self-care (01) ==
LOC: CATHCVL 06:05
PROVIDERS: ATTEND Internal Medicine Cardiovascular Disease
DX: I25.10 Atherosclerotic heart disease of native coronary artery without angina pectoris (principal)
CPT/HCPCS: 93458; C1760; C1894 ×2; C1769; J2250; J2001 ×2; J3010; Q9967

== ENCOUNTER 2022-06-16 15:36 | Inpatient (IN) | payer MEDICARE ==
--- NOTE | 2022-06-16 16:33 | ED ---
SOB HPI - General Chief Complaint: Shortness of Breath Stated Complaint: Pneumonia Time Seen by Provider: 06/16/22 15:36 Source: patient, EMS, RN notes reviewed, old records reviewed Mode of arrival: EMS Limitations: no limitations - History of Present Illness Initial Comments: 48-year-old male history of CHF COPD and [id number] history of smoking which he states he quit in April of this year who is a prolonged stay in this facility and was discharged 5 days ago. He presented to [facility] with complaints of shortness of breath that got progressively worse since he was discharged. He was seen and treated there and diagnosed with acute hypoxic respiratory failure CHF and evidence of possible pneumonia. He did have a wedge biopsy of the lung done on his last admission which indicated interstitial lung disease. Patient was given Lasix nitro paste updraft treatments as well as aspirin at the other facility. He was transferred here for higher level of care. He denies any chest pain at this time he did demonstrate some sweats but no fever or chills. I did review the material sent from [facility]. I did discuss the transfer with paramedics upon arrival. MD Complaint: shortness of breath - Related Data Home Medications Medication Instructions Recorded Confirmed HYDROcodone/APAP 7.5-325MG [[place] 1 tab PO TID PRN 04/25/18 05/23/22 7.5-325] Omeprazole 40 mg PO DAILY 01/08/19 05/23/22 Cetirizine HCl 10 mg PO DAILY 09/06/21 05/23/22 Donepezil [Aricept] 5 mg PO HS 09/06/21 05/23/22 Isosorbide Mononitrate ER [Imdur] 30 mg PO DAILY 09/06/21 05/23/22 Sertraline HCl [Zoloft] 200 mg PO DAILY 09/06/21 05/23/22 haloperidoL [Haloperidol] 2 mg PO DAILY 09/06/21 05/23/22 traZODone HCL 150 mg PO HS 09/06/21 05/23/22 Aspirin EC [Ecotrin Low Dose] 81 mg PO DAILY 05/03/22 05/23/22 Atorvastatin Calcium [Lipitor] 40 mg PO DAILY 05/03/22 05/23/22 Gabapentin [Neurontin] 400 mg PO TID 05/03/22 05/23/22 Albuterol Sulfate [Albuterol 1 puff INHALATION RT-Q4H 05/23/22 05/23/22 Sulfate Hfa] clonazePAM [KlonoPIN] 1 mg PO TID 05/23/22 05/23/22 Budesonide-Formot 160-4.5 Mcg 1 puff INHALATION RT-BID 06/16/22 06/16/22 [Symbicort 160-4.5 Mcg Inhaler] Previous Rx's Medication Instructions Recorded Ezetimibe [Zetia] 10 mg PO DAILY #30 tab 05/14/22 Verapamil Sr [Isoptin Sr] 120 mg PO DAILY #30 tab 05/14/22 Furosemide [Lasix] 40 mg PO Q48H #30 tab 06/11/22 metFORMIN HCL [Glucophage] 500 mg PO BID #60 tab 06/11/22 predniSONE [Deltasone] 40 mg PO DAILY #100 tab 06/11/22 Allergies Allergy/AdvReac Type Severity Reaction Status Date / Time No Known Allergies Allergy Verified 06/16/22 16:33 Review of Systems ROS Statement: Those systems with pertinent positive or pertinent negative responses have been documented in the HPI. ROS Other: All systems not noted in ROS Statement are negative. Past Medical History Past Medical History: Coronary Artery Disease (CAD), COPD, GERD/Reflux, Hyperlipidemia, Hypertension, Memory Impairment, Pneumonia, Respiratory Disorder, Seizure Disorder, Skin Disorder, Sleep Apnea/CPAP/BIPAP Additional Past Medical History / Comment(s): FREQUENT VOMITING. HX ABSCESSES ON LEGS WITH MRSA, HX MRSA ON FACE, NECK, RIGHT THIGH AND LEFT CALF. CELLULTIS. HX SEIZURE X2, LAST IN 2011(BIT PART OF TONGUE OFF). HX BACK FRACTURE(2002), HX L1 COMPRESSION FRACTURE. ENLARGED HEART. CHRONIC BRONCHITIS. History of Any Multi-Drug Resistant Organisms: MRSA Date of last positivie culture/infection: 03/07/16 MDRO Source:: LEFT LEG Past Surgical History: Adenoidectomy, Appendectomy, Cholecystectomy, Heart Catheterization, Hernia Repair, Tonsillectomy Additional Past Surgical History / Comment(s): ABD HERNIA REPAIR X3, VENTRAL HERNIA REPAIR, LAP BAND, LAP REMOVAL OF LAP BAND AND PORT, COLONOSCOPY, EGD, EXCISION OF MRSA FROM FACE, NECK AND LEGS. UP3 surgery Past Anesthesia/Blood Transfusion Reactions: Previous Problems w/ Anesthesia Additional Past Anesthesia/Blood Transfusion Reaction / Comment(s): 1985 DURING TONSILLECTOMY AND ADENOIDECTOMY DEVELOPED FLUID IN LUNGS, WAS PUT ON VENT. Past Psychological History: Bipolar, Depression Smoking Status: Current some day smoker Past Alcohol Use History: None Reported Past Drug Use History: Cocaine, Marijuana - Past Family History Mother Family Medical History: No Reported History Additional Family Medical History / Comment(s): PT STATED MOM IS HEALTHY Father Family Medical History: Cancer Additional Family Medical History / Comment(s): LYMPHOMA. General Exam - General Exam Comments Initial Comments: This a well-developed well-nourished awake alert oriented 4 male Limitations: no limitations General appearance: alert, anxious Head exam: Present: atraumatic, normocephalic, normal inspection Eye exam: Present: normal appearance, PERRL, EOMI. Absent: scleral icterus, conjunctival injection, periorbital swelling ENT exam: Present: normal exam, mucous membranes moist Neck exam: Present: normal inspection, full ROM, other. Absent: tenderness, meningismus, lymphadenopathy Respiratory exam: Present: decreased breath sounds (Genitourinary bruits), other (Markedly diminished breath sounds especially the right knee does demonstrate some evidence of accessory muscle usage. Occasional expiratory wheezes). Absent: respiratory distress, wheezes, rales, rhonchi, stridor Cardiovascular Exam: Present: regular rate, normal rhythm, normal heart sounds. Absent: systolic murmur, diastolic murmur, rubs, gallop, clicks GI/Abdominal exam: Present: soft, normal bowel sounds. Absent: distended, tenderness, guarding, rebound, rigid Extremities exam: Present: full ROM, normal capillary refill, pedal edema. Absent: tenderness, joint swelling, calf tenderness Back exam: Present: normal inspection Neurological exam: Present: alert, oriented X3, CN II-XII intact Psychiatric exam: Present: normal affect, normal mood Skin exam: Present: warm, dry, intact, normal color. Absent: rash Course Vital Signs 06/16/22 06/16/22 06/16/22 15:37 15:46 15:51 Temperature 97.9 F Pulse Rate 83 Respiratory 18 20 Rate Blood Pressure 113/74 O2 Sat by Pulse 99 83 L Oximetry 06/16/22 06/16/22 16:00 16:31 Temperature Pulse Rate 74 71 Respiratory 20 18 Rate Blood Pressure 107/66 102/68 O2 Sat by Pulse 85 L 88 L Oximetry - Reevaluation(s) Reevaluation #1: 06/16/22 16:34 X-ray from [facility] demonstrate consolidation changes on the left airspace opacities throughout the lungs concerning for pneumonia Medical Decision Making - Medical Decision Making I did discuss findings the patient also with Dr. zuñiga who is covering Dr. Galan. Patient will be admitted for inpatient evaluation and treatment of acute hypoxic respiratory failure congestive heart failure and interstitial lung disease anemia pneumonia anemia. Patient be admitted for further evaluation and consultation by pulmonary medicine.Was pt. sent in by a medical professional or institution (, PA, LINING MECHANIC, urgent care, hospital, or [place] health care facility...) When possible be specific @ -Yes Dr. Jarvis at [facility] Did you speak to anyone other than the patient for history (EMS, parent, family, police, friend...)? What history was obtained from this source @ -EMS personnel Did you review nursing and triage notes (agree or disagree)? Why? @ -I reviewed and agree with nursing and triage notes Were old charts reviewed (outside hosp., previous admission, EMS record, old EKG, old radiological studies, urgent care reports/EKG's, [place] health care facility records)? Report findings @ -Last admission old charts were reviewed Differential Diagnosis (chest pain, altered mental status, abdominal pain women, abdominal pain men, vaginal bleeding, weakness, fever, dyspnea, syncope, headache, dizziness, GI bleed, back pain, seizure, CVA, palpatations, mental health, musculoskeletal)? @ -Dyspnea, CHF, COPD exacerbation, interstitial lung disease, peripheral edema EKG interpreted by me (3pts min.). @ -As above X-rays interpreted by me (1pt min.). @ -Chest x-ray from [facility] CT interpreted by me (1pt min.). @ -None done U/S interpreted by me (1pt. min.). @ -None done What testing was considered but not performed or refused? (CT, X-rays, U/S, labs)? Why? @ -None What meds were considered but not given or refused? Why? @ -None Did you discuss the management of the patient with other professionals (professionals i.e. , PA, LINING MECHANIC, lab, RT, psych nurse, social work case manager, environmental lawyer, teacher, chairman president and chief executive officer, manager case)? Give summary @ - Sheet Was smoking cessation discussed for >3mins.? @ -No Was critical care preformed (if so, how long)? @ -No Were there social determinants of health that impacted care today? How? (Homelessness, low income, unemployed, alcoholism, drug addiction, transportati on, low edu. Level, literacy, decrease access to med. care, nursing home, rehab)? @ -No Was there de-escalation of care discussed even if they declined (Discuss DNR or withdrawal of care, Hospice)? DNR status @ -No What co-morbidities impacted this encounter? (DM, HTN, Smoking, COPD, CAD, Cancer, CVA, ARF, Chemo, Hep., AIDS, mental health diagnosis, sleep apnea, morbid obesity)? @ -CHF, COPD, interstitial lung disease, type 2 diabetes, hypertension, seizure disorder, hypothyroidism, hyperlipidemia Was patient admitted / discharged? Hospital course, mention meds given and route, prescriptions, significant lab abnormalities, going to OR and other pertinent info. @ -hospital course : The patient was admitted for inpatient evaluation and treatment of acute hypoxic respiratory failure, CHF, pneumonia, pulmonary fibrosis, anemia Undiagnosed new problem with uncertain prognosis? @ -No Drug Therapy requiring intensive monitoring for toxicity (Heparin, Nitro, Insulin, Cardizem)? @ -No Were any procedures done? @ -No Diagnosis/symptom? @ -Acute hypoxic respiratory failure, congestive heart failure, COPD exacerbation, pneumonia, pulmonary fibrosis Acute, or Chronic, or Acute on Chronic? @ -Acute on chronic Uncomplicated (without systemic symptoms) or Complicated (systemic symptoms)? @ -default Side effects of treatment? @ -No Exacerbation, Progression, or Severe Exacerbation? @ -No Poses a threat to life or bodily function? How? (Chest pain, [place], [place], pneumonia, PE, COPD, DKA, ARF, appy, cholecystitis, CVA, Diverticulitis, Homicidal, Suic idal, threat to staff... and all critical care pts) @ -CHF, COPD and interstitial lung disease - EKG Data -: EKG Interpreted by Me (EKG interpreted by me shows normal sinus rhythm of 80. We'll 154 QRS durat) - Radiology Data Interpreted by me: No new imaging at this time Disposition Clinical Impression: Systolic congestive heart failure, Acute exacerbation of chronic obstructive pulmonary disease, Acute respiratory distress syndrome in adult, Pneumonia, Anemia, Hypoxemia, Acute respiratory failure with hypoxia Disposition: ADMITTED IP TO THIS HOSP Condition: Fair Referrals: Loco Carson MD [Primary Care Provider] - 1-2 days Decision Date: 06/16/22 Decision Time: 16:42
[2022-06-16 17:50] LABS: Glucose,Whole Blood 414 mg/dL (70-110)
[2022-06-16] MEDS: INSULIN ASPART (NovoLOG) 100 UNIT/ML VIAL SQ SCH ×2 (18:17→20:24)
[2022-06-16] MEDS: NITROGLYCERIN OINT 1 INCH/GM PACKET TOPICAL SCH ×2 (18:18→23:02)
[2022-06-16 20:11] LABS: Glucose,Whole Blood 414 mg/dL (70-110)
[2022-06-16] MEDS: traZODone HCL 50 MG TAB PO SCH (20:25)
[2022-06-16] MEDS: metFORMIN 500 MG TAB PO SCH (20:25)
[2022-06-16] MEDS: clonazePAM 1 MG TAB PO SCH (20:25)
[2022-06-16] MEDS: DONEPEZIL 5 MG TAB PO SCH (20:25)
[2022-06-16] MEDS: GABAPENTIN 400 MG CAP PO SCH (20:25)
[2022-06-16] MEDS: LINAGLIPTIN 5 MG TABLET PO SCH (20:56)
[2022-06-16] MEDS ORDERED: INSULIN DETEMIR (LEVEMIR) 100 UNIT/ML SYR SQ SCH (21:00)
[2022-06-16] MEDS: ALBUTEROL HFA INHALER INHALATION PRN (21:14)
[2022-06-16] MEDS: SYMBICORT 160-4.5 MCG INHALER INHALATION SCH (21:15)
[2022-06-16] MEDS: FUROSEMIDE 40 MG TAB PO SCH (23:02)
[2022-06-17 06:04] LABS: Glucose,Whole Blood 300 mg/dL (70-110)
[2022-06-17] MEDS: INSULIN ASPART (NovoLOG) 100 UNIT/ML VIAL SQ SCH ×4 (06:06→21:07)
--- NOTE | 2022-06-17 07:57 | XR ---
EXAMINATION TYPE: XR chest 1V DATE OF EXAM: 06/17/2022 6:25 AM COMPARISON: Chest radiographs from 06/11/2022 TECHNIQUE: XR chest 1V Portable AP radiograph of the chest. CLINICAL INDICATION:Male, 56 years old with history of sob; FINDINGS: Lungs/Pleura: Similar multifocal airspace opacities. No evidence of pneumothorax or pleural effusion. Pulmonary vascularity: Unremarkable. Heart/mediastinum: Cardiomediastinal silhouette is unremarkable. Musculoskeletal: No acute osseous pathology. IMPRESSION: Similar multifocal airspace opacities.
--- NOTE | 2022-06-17 07:59 | P.HPIM ---
History of Present Illness This is a pleasant 56 years old male with multiple medical problems including Coronary Artery Disease , COPD, GERD/Reflux, Hyperlipidemia, Hypertension, Memory Impairment, seizure disorder, sleep apnea, bipolar and depression Nicotine dependence, previous history of drug abuse including cocaine and marijuana Pt transfered from [facility]. Pt c/o SOB for the last 5 days since his been discharged from hospital, is gradually getting worse, he has dyspnea even with little exertion, he has difficulty talking because of his dyspnea. His cough and making the total phlegm. No chest pain.. He has difficulty walking. Last time was able to walk was about 1.5 week ago. No change in urine or bowel habits or abnormal symptoms. Patient currently saturating 94. 98% on 2 L oxygen via high flow nasal cannula, he is dyspneic and tachypneic with coughing and afebrile. Reviewing the records from [facility] lactic acid slightly elevated at 2.3, WBCs slightly up at 10.5, hemoglobin 8.7, platelets 87: CPK 58, sodium 138, potassium 4, glucose 263, creatinine 0.7, BUN elevated to 24. AST normal 30, ALT slightly elevated at 72. Bilirubin is normal at 1. Albumin 3.1. INR 1.0. Magnesium 1.6. Phosphorus 3, proBNP 1240. procalcitonin on 0.38 which is elevated, troponin was is within the reference range of 0.029. At [facility] he received IV Lasix, oral aspirin, nitroglycerin paste and nebulizer treatment. He was diagnosed with pneumonia, CHF with pulmonary fibrosis I reviewed this morning Chest x-ray today compared to 6 days ago, showing more right lower lobe infiltrate with possible pleural effusion. However it has better orientation a prolonged period, pending final report by radiologist Review of Systems Review of systems CONSTITUTIONAL: No fever, no malaise, no fatigue. HEENT: No recent visual problems or hearing problems. Denied any sore throat. CARDIOVASCULAR: No orthopnea, PND, no palpitations, no syncope. PULMONARY: No chest wall tenderness, no hemoptysis. GASTROINTESTINAL: No diarrhea, no nausea, no vomiting, no abdominal pain. Normo active bowel sounds. NEUROLOGICAL: No headaches, no weakness, no numbness. HEMATOLOGICAL: Denies any bleeding or petechiae. GENITOURINARY: Denies any burning micturition, frequency, or urgency. MUSCULOSKELETAL/RHEUMATOLOGICAL: Denies any joint pain, swelling, or any muscle pain. ENDOCRINE: Denies any polyuria or polydipsia. Past Medical History Past Medical History: Coronary Artery Disease (CAD), COPD, GERD/Reflux, Hyperlipidemia, Hypertension, Memory Impairment, Pneumonia, Respiratory Disorder, Seizure Disorder, Skin Disorder, Sleep Apnea/CPAP/BIPAP Additional Past Medical History / Comment(s): FREQUENT VOMITING. HX ABSCESSES ON LEGS WITH MRSA, HX MRSA ON FACE, NECK, RIGHT THIGH AND LEFT CALF. CELLULTIS. HX SEIZURE X2, LAST IN 2011(BIT PART OF TONGUE OFF). HX BACK FRACTURE(2002), HX L1 COMPRESSION FRACTURE. ENLARGED HEART. CHRONIC BRONCHITIS. History of Any Multi-Drug Resistant Organisms: MRSA Date of last positivie culture/infection: 03/07/16 MDRO Source:: LEFT LEG Past Surgical History: Adenoidectomy, Appendectomy, Cholecystectomy, Heart Catheterization, Hernia Repair, Tonsillectomy Additional Past Surgical History / Comment(s): ABD HERNIA REPAIR X3, VENTRAL HERNIA REPAIR, LAP BAND, LAP REMOVAL OF LAP BAND AND PORT, COLONOSCOPY, EGD, EXCISION OF MRSA FROM FACE, NECK AND LEGS. UP3 surgery Past Anesthesia/Blood Transfusion Reactions: Previous Problems w/ Anesthesia Additional Past Anesthesia/Blood Transfusion Reaction / Comment(s): 1985 DURING TONSILLECTOMY AND ADENOIDECTOMY DEVELOPED FLUID IN LUNGS, WAS PUT ON VENT. Past Psychological History: Bipolar, Depression Additional Psychological History / Comment(s): . Smoking Status: Current some day smoker Past Alcohol Use History: None Reported Additional Past Alcohol Use History / Comment(s): HX OF SMOKING OFF/ON SINCE AGE 12, UP TO 1 PPD. Past Drug Use History: Cocaine, Marijuana Additional Drug Use History / Comment(s): previous marijuana and cocaine, no coke use for 20 years - Past Family History Mother Family Medical History: No Reported History Additional Family Medical History / Comment(s): PT STATED MOM IS HEALTHY Father Family Medical History: Cancer Additional Family Medical History / Comment(s): LYMPHOMA. Medications and Allergies Home Medications Medication Instructions Recorded Confirmed Type HYDROcodone/APAP 7.5-325MG [[place] 1 tab PO TID PRN 04/25/18 06/16/22 History 7.5-325] Omeprazole 40 mg PO DAILY 01/08/19 06/16/22 History Cetirizine HCl 10 mg PO DAILY 09/06/21 06/16/22 History Donepezil [Aricept] 5 mg PO HS 09/06/21 06/16/22 History Isosorbide Mononitrate ER [Imdur] 30 mg PO DAILY 09/06/21 06/16/22 History Sertraline HCl [Zoloft] 200 mg PO DAILY 09/06/21 06/16/22 History haloperidoL [Haloperidol] 2 mg PO DAILY 09/06/21 06/16/22 History traZODone HCL 150 mg PO HS 09/06/21 06/16/22 History Aspirin EC [Ecotrin Low Dose] 81 mg PO DAILY 05/03/22 06/16/22 History Atorvastatin Calcium [Lipitor] 40 mg PO DAILY 05/03/22 06/16/22 History Gabapentin [Neurontin] 400 mg PO TID 05/03/22 06/16/22 History Ezetimibe [Zetia] 10 mg PO DAILY #30 tab 05/14/22 06/16/22 Rx Verapamil Sr [Isoptin Sr] 120 mg PO DAILY #30 tab 05/14/22 06/16/22 Rx Albuterol Sulfate [Albuterol 1 puff INHALATION RT-Q4H PRN 05/23/22 06/16/22 History Sulfate Hfa] clonazePAM [KlonoPIN] 1 mg PO TID 05/23/22 06/16/22 History Furosemide [Lasix] 40 mg PO Q48H #30 tab 06/11/22 06/16/22 Rx metFORMIN HCL [Glucophage] 500 mg PO BID #60 tab 06/11/22 06/16/22 Rx predniSONE [Deltasone] 40 mg PO DAILY #100 tab 06/11/22 06/16/22 Rx Budesonide-Formot 160-4.5 Mcg 1 puff INHALATION RT-BID 06/16/22 06/16/22 History [Symbicort 160-4.5 Mcg Inhaler] Allergies Allergy/AdvReac Type Severity Reaction Status Date / Time No Known Allergies Allergy Verified 06/16/22 16:33 Physical Exam Vitals: Vital Signs Temp Pulse Pulse Resp BP BP Pulse Ox 06/17/22 03:26 98.4 F 60 18 131/81 93 L 06/16/22 23:20 97.5 F L 64 24 115/72 98 06/16/22 19:51 97.8 F 73 26 H 125/71 94 L 06/16/22 17:03 76 19 116/75 90 L 06/16/22 16:31 71 18 102/68 88 L 06/16/22 16:00 74 20 107/66 85 L 06/16/22 15:51 83 L 06/16/22 15:46 20 06/16/22 15:37 97.9 F 83 18 113/74 99 Intake and Output 06/16/22 06/17/22 06/17/22 21:59 06:59 14:59 Intake Total Output Total Balance Intake: Oral Output: Urine Other: Voiding Method Weight -GENERAL: The patient is alert and oriented x3, not in any acute distress. Well developed, well nourished. Generally weak HEENT: Pupils are round and equally reacting to light. EOMI. No scleral icterus. No conjunctival pallor. Normocephalic, atraumatic. No pharyngeal erythema. No thyromegaly. CARDIOVASCULAR: S1 and S2 present. No murmurs, rubs, or gallops. -PULMONARY: Chest is clear to auscultation, no wheezing or crackles. Bilateral crepitation, limited air entry on both sides, with scattered wheezing ABDOMEN: Soft, nontender, nondistended, normoactive bowel sounds. No palpable or ganomegaly. MUSCULOSKELETAL: No joint swelling or deformity. -EXTREMITIES: No cyanosis, clubbing,, 1+ bilateral pitting edema. NEUROLOGICAL: Gross neurological examination did not reveal any focal deficits. SKIN: No rashes. no petechiae. Results Labs: Abnormal Lab Results - Last 24 Hours (Table) 06/16/22 06/16/22 06/17/22 Range/Units 17:49 20:10 06:02 POC Glucose (mg/dL) 414 H 414 H 300 H (70-110) mg/dL Thrombosis Risk Factor Assmnt - Choose All That Apply Each Factor Represents 1 point: Age 41-60 years Thrombosis Risk Factor Assessment Total Risk Factor Score: 1 Thrombosis Risk Factor Assessment Level: Low Risk Assessment and Plan Assessment: possible right lower lobe pneumonia, hospital-acquired Acute COPD exacerbation Acute hypoxic respiratory failure on chronic hypoxic failure History of steroids responsive interstitial lung disease Bicytopenia with anemia and thrombocytopenia Diabetes mellitus Hypertension Hyperlipidemia History of coronary artery disease History of dementia and memory impairment History of seizure disorder History of sleep apnea History of bipolar Nicotine dependence previous history of drug abuse including cocaine and marijuana history of schizophrenia Plan: starts patient on Zosyn, check sputum and blood culture Continue with prednisone 40 mg Currently on oral Lasix 40 mg every 8 hours. He has good urine output this morning he made more than 1 L old. Rule out fluid restriction 1500 mL per day Continue with Symbicort Continue with oxygen Pulmonary consult Check for respiratory virus panel Labs and medication were reviewed.. Continue same treatment. Continue with symptomatic treatment. Resume home medication. Monitor labs and vitals. DVT and GI prophylaxis. Further recommendations as per clinical course of the patient DVT prophylaxis: Subcutaneous heparin GI Prophylaxis: Pepcid PT/OT: Pending Prognosis is guarded
[2022-06-17] MEDS ORDERED: INSULIN DETEMIR (LEVEMIR) 100 UNIT/ML SYR SQ ONE (08:00)
[2022-06-17] MEDS: ALBUTEROL HFA INHALER INHALATION PRN ×4 (08:15→20:17)
[2022-06-17] MEDS: SYMBICORT 160-4.5 MCG INHALER INHALATION SCH ×2 (08:15→20:16)
[2022-06-17 08:19] LABS: Anisocytosis Slight; Basophils % (A) 0 %; Eosinophils % (A) 0 %; HCT 26.7 % (39.0-53.0); HGB 8.6 gm/dL (13.0-17.5); Hypochromasia Slight; Lymphocytes # (A) 0.4 k/uL (1.0-4.8); Lymphocytes % (A) 4 %; MCH 29.8 pg (25.0-35.0); MCHC 32.3 g/dL (31.0-37.0); MCV 92.2 fL (80.0-100.0); Mean Platelet Volume 9.5; Monocytes # (A) 0.5 k/uL (0-1.0); Monocytes % (A) 5 %; Neutrophils # (A) 8.7 k/uL (1.3-7.7); Neutrophils % (A) 90 %; Poikilocytosis Slight; RDW 16.5 % (11.5-15.5); WBC 9.6 k/uL (3.8-10.6)
[2022-06-17 08:31] LABS: ALT 62 U/L (4-49); AST 24 U/L (17-59); African American GFR (CKD) >90 (>60 ml/min/1.73 sqM); Albumin 2.6 g/dL (3.5-5.0); Alkaline Phosphatase 125 U/L (38-126); Anion Gap 3 mmol/L; Bilirubin, Delta 0.4 mg/dL (0.0-0.2); Bilirubin,Unconjugated 0.3 mg/dL (0.0-1.1); Blood Urea Nitrogen 27 mg/dL (9-20); Carbon Dioxide 39 mmol/L (22-30); Chloride 99 mmol/L (98-107); Glucose 218 mg/dL (74-99); Magnesium 1.9 mg/dL (1.6-2.3); Non-African American GFR(CKD) >90 (>60 ml/min/1.73 sqM); Potassium 3.6 mmol/L (3.5-5.1); Sodium 141 mmol/L (137-145); Total Bilirubin 0.7 mg/dL (0.2-1.3); Total Protein 4.8 g/dL (6.3-8.2)
[2022-06-17] MEDS: PANTOPRAZOLE 40 MG TABLET PO SCH (08:37)
[2022-06-17] MEDS: EZETIMIBE 10 MG TAB PO SCH (08:37)
[2022-06-17] MEDS: LORATADINE 10 MG TAB PO SCH (08:37)
[2022-06-17] MEDS: ASPIRIN 81 MG PO SCH (08:37)
[2022-06-17] MEDS: ATORVASTATIN 40 MG TAB PO SCH (08:37)
[2022-06-17] MEDS: VERAPAMIL SR 120 MG TABLET.ER PO SCH (08:37)
[2022-06-17] MEDS: ISOSORBIDE MONONITRATE ER 30 MG TAB.ER.24H PO SCH (08:38)
[2022-06-17] MEDS: SERTRALINE 100 MG TAB PO SCH (08:38)
[2022-06-17] MEDS: clonazePAM 1 MG TAB PO SCH ×3 (08:38→21:08)
[2022-06-17] MEDS: NITROGLYCERIN OINT 1 INCH/GM PACKET TOPICAL SCH ×4 (08:38→21:15)
[2022-06-17] MEDS: LINAGLIPTIN 5 MG TABLET PO SCH (08:38)
[2022-06-17] MEDS: GABAPENTIN 400 MG CAP PO SCH ×3 (08:38→21:08)
[2022-06-17] MEDS: metFORMIN 500 MG TAB PO SCH ×2 (08:38→21:08)
[2022-06-17] MEDS: PIPERACILLIN-TAZOBACTAM 3.375 GM in SODIUM CHLORIDE 0.9% 100 ML IVPB SCH ×2 (08:39→15:48)
[2022-06-17] MEDS: FUROSEMIDE 40 MG TAB PO SCH ×2 (08:39→15:48)
[2022-06-17] MEDS ORDERED: predniSONE 20 MG TAB PO SCH (09:00)
[2022-06-17 09:28] LABS: Platelet Count 84 k/uL (150-450); Poikilocytosis (M) Present
--- NOTE | 2022-06-17 11:52 | P.CNPUL ---
History of Present Illness Consult date: 06/17/22 Reason for consult: dyspnea History of present illness: This is a 56-year-old male patient was hospitalized again yesterday for worsening shortness of breath. He was initially admitted to the medical floor and because of worsening shortness of breath. He is known to have COPD, hypertension, coronary artery disease, CHF with mild impairment of LV function with an ejection fraction of 45-50%. He has history of schizophrenia, depression and he was transferred to us originally from [facility] for hypoxic respiratory failure and development of diffuse bilateral pulmonary infiltrates that was considered to be a postinfectious ARDS. The patient has had multiple hospitalizations for the same. During his hospital stay, he receives antibiotics and steroids and he improves and he is discharged home to be readmitted. During his last hospitalization, he underwent a thoracoscopic wedge biopsy of the lung and the final diagnoses not been achieved yet as the samples have been sent [facility]. He has emphysema in addition to a chronic interstitial lung disease and the final pathology is not available yet. He was supposed to see me in the office tomorrow. Meanwhile, the patient became progressively more short of breath and the end up in the hospital again. I reviewed this patient's records going back to 2017. Going back to the CAT scan of the chest that was done in 2017, the patient at that time had evidence of extensive patchy groundglass pulmonary infiltrates and as such this infiltrates are not looking to be acute. Note that between 2016 and 2022, the patient did not have any follow-up chest x-rays and we don't have any progression of his underlying lung disease which could be formally chronic int erstitial lung disease. He has had previous episodes of respiratory failure. He has smoked marijuana in the past none for the past 6 months and he has not smoked since his last hospitalization approximately 3 weeks ago. His swallow study was also negative for any underlying aspiration. As such, there may be an underlying chronic interstitial lung disease in this patient. The patient was progressively getting worse at home. He was discharged home on 40 mg of prednisone. The final pathology from his lung biopsy is not available yet. Our preliminary diagnosis was consistent with UIP, however, the samples were sent [facility] for a second opinion regarding the final pathologic findings. The patient was on 4 L. He became progressively more weak. He has been falling. His been having worsening shortness of breath. He was cough and he was making sputum. No chest pain. He was having difficulty with walking and ambulation. At that point, the patient was brought in to the hospital for further evaluation. He initially landed [facility] following that he was transferred to us. The current illicit count of 10.5 with a hemoglobin of 8.7 and a platelet count of 87. Sodium is at 138, potassium is at 4, creatinine is at 0.7 with a BUN of 24 and liver function tests are essentially within normal limits. Pro-calcitonin level is at 0.38. Troponins are 0.0 29. The patient is currently on IV Zosyn. Is currently on oxygen at 15 L nasal cannula and there is obvious worsening in his oxygenation. ProBNP level is 1240. Review of Systems Constitutional: Reports fatigue, Reports weakness Eyes: denies as per HPI, denies blurred vision, denies bulging eye, denies d ecreased vision, denies diplopia, denies discharge, denies dry eye, denies irritation, denies itching, denies pain, denies photophobia, denies loss of peripheral vision, denies loss of vision, denies tunnel vision/blind spots Ears: deny: decreased hearing, ear discharge, earache, tinnitus Ears, nose, mouth and throat: Reports as per HPI Breasts: absent: as per HPI, gynecomastia Cardiovascular: Reports decreased exercise tolerance, Reports dyspnea on exertion, Reports shortness of breath Respiratory: Reports cough, Reports dyspnea, Reports home oxygen Gastrointestinal: Reports as per HPI Genitourinary: Reports as per HPI Musculoskeletal: Reports as per HPI Musculoskeletal: absent: ankle pain, ankle stiffness, ankle swelling Integumentary: Reports as per HPI Neurological: Reports as per HPI Psychiatric: Reports as per HPI Endocrine: Reports as per HPI Hematologic/Lymphatic: Reports as per HPI Allergic/Immunologic: Reports as per HPI Past Medical History Past Medical History: Coronary Artery Disease (CAD), COPD, GERD/Reflux, Hyperlipidemia, Hypertension, Memory Impairment, Pneumonia, Respiratory Disorder, Seizure Disorder, Skin Disorder, Sleep Apnea/CPAP/BIPAP Additional Past Medical History / Comment(s): FREQUENT VOMITING. HX ABSCESSES ON LEGS WITH MRSA, HX MRSA ON FACE, NECK, RIGHT THIGH AND LEFT CALF. CELLULTIS. HX SEIZURE X2, LAST IN 2011(BIT PART OF TONGUE OFF). HX BACK FRACTURE(2002), HX L1 COMPRESSION FRACTURE. ENLARGED HEART. CHRONIC BRONCHITIS. History of Any Multi-Drug Resistant Organisms: MRSA Date of last positivie culture/infection: 03/07/16 MDRO Source:: LEFT LEG Past Surgical History: Adenoidectomy, Appendectomy, Cholecystectomy, Heart Catheterization, Hernia Repair, Tonsillectomy Additional Past Surgical History / Comment(s): ABD HERNIA REPAIR X3, VENTRAL HERNIA REPAIR, LAP BAND, LAP REMOVAL OF LAP BAND AND PORT, COLONOSCOPY, EGD, EXCISION OF MRSA FROM FACE, NECK AND LEGS. UP3 surgery Past Anesthesia/Blood Transfusion Reactions: Previous Problems w/ Anesthesia Additional Past Anesthesia/Blood Transfusion Reaction / Comment(s): 1985 DURING TONSILLECTOMY AND ADENOIDECTOMY DEVELOPED FLUID IN LUNGS, WAS PUT ON VENT. Past Psychological History: Bipolar, Depression Additional Psychological History / Comment(s): . Smoking Status: Current some day smoker Past Alcohol Use History: None Reported Additional Past Alcohol Use History / Comment(s): HX OF SMOKING OFF/ON SINCE AGE 12, UP TO 1 PPD. Past Drug Use History: Cocaine, Marijuana Additional Drug Use History / Comment(s): previous marijuana and cocaine, no coke use for 20 years - Past Family History Mother Family Medical History: No Reported History Additional Family Medical History / Comment(s): PT STATED MOM IS HEALTHY Father Family Medical History: Cancer Additional Family Medical History / Comment(s): LYMPHOMA. Medications and Allergies Home Medications Medication Instructions Recorded Confirmed Type HYDROcodone/APAP 7.5-325MG [[place] 1 tab PO TID PRN 04/25/18 06/16/22 History 7.5-325] Omeprazole 40 mg PO DAILY 01/08/19 06/16/22 History Cetirizine HCl 10 mg PO DAILY 09/06/21 06/16/22 History Donepezil [Aricept] 5 mg PO HS 09/06/21 06/16/22 History Isosorbide Mononitrate ER [Imdur] 30 mg PO DAILY 09/06/21 06/16/22 History Sertraline HCl [Zoloft] 200 mg PO DAILY 09/06/21 06/16/22 History haloperidoL [Haloperidol] 2 mg PO DAILY 09/06/21 06/16/22 History traZODone HCL 150 mg PO HS 09/06/21 06/16/22 History Aspirin EC [Ecotrin Low Dose] 81 mg PO DAILY 05/03/22 06/16/22 History Atorvastatin Calcium [Lipitor] 40 mg PO DAILY 05/03/22 06/16/22 History Gabapentin [Neurontin] 400 mg PO TID 05/03/22 06/16/22 History Ezetimibe [Zetia] 10 mg PO DAILY #30 tab 05/14/22 06/16/22 Rx Verapamil Sr [Isoptin Sr] 120 mg PO DAILY #30 tab 05/14/22 06/16/22 Rx Albuterol Sulfate [Albuterol 1 puff INHALATION RT-Q4H PRN 05/23/22 06/16/22 History Sulfate Hfa] clonazePAM [KlonoPIN] 1 mg PO TID 05/23/22 06/16/22 History Furosemide [Lasix] 40 mg PO Q48H #30 tab 06/11/22 06/16/22 Rx metFORMIN HCL [Glucophage] 500 mg PO BID #60 tab 06/11/22 06/16/22 Rx predniSONE [Deltasone] 40 mg PO DAILY #100 tab 06/11/22 06/16/22 Rx Budesonide-Formot 160-4.5 Mcg 1 puff INHALATION RT-BID 06/16/22 06/16/22 History [Symbicort 160-4.5 Mcg Inhaler] Allergies Allergy/AdvReac Type Severity Reaction Status Date / Time No Known Allergies Allergy Verified 06/16/22 16:33 Physical Exam Vitals: Vital Signs Temp Pulse Pulse Resp BP BP Pulse Ox 06/17/22 10:58 16 91 L 06/17/22 08:46 16 89 L 06/17/22 08:35 16 85 L 06/17/22 08:34 97.8 F 75 18 120/71 80 L 06/17/22 08:16 93 L 06/17/22 03:26 98.4 F 60 18 131/81 93 L 06/16/22 23:20 97.5 F L 64 24 115/72 98 06/16/22 19:51 97.8 F 73 26 H 125/71 94 L 06/16/22 17:03 76 19 116/75 90 L 06/16/22 16:31 71 18 102/68 88 L 06/16/22 16:00 74 20 107/66 85 L 06/16/22 15:51 83 L 06/16/22 15:46 20 03/11/23 15:37 97.9 F 83 18 113/74 99 Intake and Output 06/16/22 06/17/22 06/17/22 21:59 06:59 14:59 Intake Total 368 Output Total Balance 368 Intake: IV 10 Invasive Line 1 10 Oral 358 Output: Urine Other: Voiding Method Urinal Weight GENERAL EXAM: Alert, pleasant 56-year-old male, resting in bed on 15 L high flow nasal cannula, comfortable in no apparent distress. HEAD: Normocephalic and atraumatic EYES: Normal reaction of pupils, equal size. NOSE: Clear with pink turbinates. THROAT: No erythema or exudates. NECK: No masses, no JVD. CHEST: No chest wall deformity. Right-sided chest tube has been removed and the exit site is dry clean and intact LUNGS: Equal air entry with bibasilar crackles. No wheeze, rhonchi or dullness. CVS: S1 and S2 normal with no audible murmur, regular rhythm. No extra heart sounds ABDOMEN: No hepatosplenomegaly, active bowel sounds, no guarding or rigidity. SPINE: No scoliosis or deformity SKIN: No rashes CENTRAL NERVOUS SYSTEM: No focal deficits, tone is normal in all 4 extremities. EXTREMITIES: There is no peripheral edema, clubbing, or cyanosis. Peripheral pulses are intact. Results - Laboratory Findings CBC and BMP: 06/17/22 08:01 06/17/22 08:01 Abnormal lab findings: Abnormal Labs 06/16/22 06/16/22 06/17/22 17:49 20:10 06:02 RBC Hgb Hct RDW Plt Count Neutrophils # Lymphocytes # Carbon Dioxide BUN Creatinine Glucose POC Glucose (mg/dL) 414 H 414 H 300 H Hemoglobin A1c Calcium Delta Bilirubin ALT Total Protein Albumin Procalcitonin 06/17/22 06/17/22 06/17/22 08:01 08:01 08:01 RBC 2.90 L Hgb 8.6 L Hct 26.7 L RDW 16.5 H Plt Count 84 L Neutrophils # 8.7 H Lymphocytes # 0.4 L Carbon Dioxide 39 H BUN 27 H Creatinine 0.63 L Glucose 218 H POC Glucose (mg/dL) Hemoglobin A1c Calcium 8.0 L Delta Bilirubin 0.4 H ALT 62 H Total Protein 4.8 L Albumin 2.6 L Procalcitonin 0.25 H 06/17/22 08:01 RBC Hgb Hct RDW Plt Count Neutrophils # Lymphocytes # Carbon Dioxide BUN Creatinine Glucose POC Glucose (mg/dL) Hemoglobin A1c 8.4 H Calcium Delta Bilirubin ALT Total Protein Albumin Procalcitonin - Diagnostic Findings Chest x-ray: image reviewed Assessment and Plan Plan: Acute on chronic hypoxic respiratory failure secondary to suspected acute lung injury, possible interstitial lung disease. Appears to be steroid responsive interstitial lung disease/pneumonia. . Status post right-sided video-assisted thorascopic surgery with biopsies of all 3 lobes of the right lung. Final pathology is not available yet. Nevertheless, this has occurred on multiple occasions as the patient gets readmitted to the hospital because of acute on chronic hypoxic respiratory failure and currently is a 15 L of oxygen by nasal cannula. There is also interval worsening in the left upper lobe consolidation along with chronic into status changes bilaterally on his chest x-ray Severe COPD Underlying coronary artery disease and previous cardiac catheterization in September 2021 Congestion heart failure, mildly impaired systolic function based on old echocardiogram from 2018 and a repeat echocardiogram from 05/04/2022 showed a preserved LV function with moderate LVH. Hypertension Dyslipidemia Schizophrenia History of seizure disorder History of obstructive sleep apnea and previous UPPP. Plan: Restart IV Zosyn Restart IV Solu-Medrol 60 mg every 6 hours Discontinue oral prednisone Return about treatments [id number] 4 times a day We'll contact [facility] will try to get a final pathology regarding his wedge biopsy of the lung Resume all of his home medications Monitor the blood sugar and avoid any form of steroid-induced hyperglycemia the ex Is at the bedside for now and I discussed the case with her.
[2022-06-17 11:56] LABS: Glucose,Whole Blood 240 mg/dL (70-110)
[2022-06-17] MEDS: methylPREDNISolone SOD SUCCI 125 MG/2 ML VIAL IV SCH ×2 (12:02→17:02)
[2022-06-17 16:40] LABS: Glucose,Whole Blood 211 mg/dL (70-110)
[2022-06-17] MEDS: HYDROcodone/APAP 7.5-325MG 1 EACH TAB PO PRN (17:10)
[2022-06-17 20:36] LABS: Glucose,Whole Blood 313 mg/dL (70-110)
[2022-06-17] MEDS: INSULIN DETEMIR (LEVEMIR) 100 UNIT/ML SYR SQ SCH (21:07)
[2022-06-17] MEDS: traZODone HCL 50 MG TAB PO SCH (21:08)
[2022-06-18] MEDS: methylPREDNISolone SOD SUCCI 125 MG/2 ML VIAL IV SCH ×5 (00:23→23:23)
[2022-06-18] MEDS: FUROSEMIDE 40 MG TAB PO SCH ×4 (00:23→23:23)
[2022-06-18] MEDS: DONEPEZIL 5 MG TAB PO SCH ×2 (00:23→21:23)
[2022-06-18] MEDS: PIPERACILLIN-TAZOBACTAM 3.375 GM in SODIUM CHLORIDE 0.9% 100 ML IVPB SCH ×4 (00:23→23:23)
[2022-06-18 00:49] LABS: Glucose,Whole Blood 265 mg/dL (70-110)
[2022-06-18] MEDS ORDERED: NALOXONE 0.4 MG/ML 1 ML VIAL IV PRN (01:34)
[2022-06-18 02:24] LABS: Anisocytosis Slight; Basophils % (A) 0 %; Eosinophils # (A) 0.1 k/uL (0-0.7); Eosinophils % (A) 1 %; HCT 23.9 % (39.0-53.0); HGB 7.6 gm/dL (13.0-17.5); Hypochromasia Slight; Lymphocytes # (A) 0.3 k/uL (1.0-4.8); Lymphocytes % (A) 4 %; MCH 29.3 pg (25.0-35.0); MCHC 31.6 g/dL (31.0-37.0); MCV 92.5 fL (80.0-100.0); Mean Platelet Volume 8.5; Monocytes # (A) 0.2 k/uL (0-1.0); Monocytes % (A) 3 %; Neutrophils # (A) 6.6 k/uL (1.3-7.7); Neutrophils % (A) 92 %; Poikilocytosis Slight; RBC 2.58 m/uL (4.30-5.90); RDW 16.8 % (11.5-15.5); WBC 7.2 k/uL (3.8-10.6)
[2022-06-18 02:30] LABS: Platelet Count 75 k/uL (150-450)
[2022-06-18 02:32] LABS: ABG Base Excess 16.8 mmol/L; ABG Oxygen Saturation 99.3 % (94-97); ABG PCO2 59 mmHg (35-45); ABG PH 7.45 (7.35-7.45); ABG PO2 115 mmHg (83-108); ABG TCO2 43 mmol/L (19-24); Allen Test Performed? Yes
[2022-06-18 02:37] LABS: ABG HCO3 41 mmol/L (21-25)
[2022-06-18 02:38] LABS: African American GFR (CKD) >90 (>60 ml/min/1.73 sqM); Anion Gap 2 mmol/L; Blood Urea Nitrogen 31 mg/dL (9-20); Calcium 7.4 mg/dL (8.4-10.2); Chloride 97 mmol/L (98-107); Glucose 234 mg/dL (74-99); Non-African American GFR(CKD) >90 (>60 ml/min/1.73 sqM); Potassium 3.4 mmol/L (3.5-5.1); Sodium 139 mmol/L (137-145)
[2022-06-18 02:45] LABS: Carbon Dioxide 40 mmol/L (22-30)
[2022-06-18] MEDS ORDERED: Potassium Replacement Protocol 1 EACH MISC MISCELLANE PRN (02:52)
[2022-06-18] MEDS: POTASSIUM BICARBONATE/CIT AC 20 MEQ TABLET.EFF NG-TUBE SCH ×2 (02:57→04:14)
[2022-06-18 06:48] LABS: Glucose,Whole Blood 278 mg/dL (70-110)
[2022-06-18] MEDS: INSULIN ASPART (NovoLOG) 100 UNIT/ML VIAL SQ SCH ×4 (06:49→21:23)
--- NOTE | 2022-06-18 07:13 | XR ---
EXAMINATION TYPE: XR chest 1V DATE OF EXAM: 06/18/2022 6:23 AM COMPARISON: Chest radiographs from 06/17/2022 TECHNIQUE: XR chest 1V Portable AP radiograph of the chest. CLINICAL INDICATION:Male, 56 years old with history of Increased O2 demands; FINDINGS: Lungs/Pleura: Multifocal airspace opacities. No evidence of pneumothorax or pleural effusion. Pulmonary vascularity: Unremarkable. Heart/mediastinum: Cardiomediastinal silhouette is unremarkable. Musculoskeletal: No acute osseous pathology. IMPRESSION: Denser multifocal airspace opacities on today's exam. Could partially be due to phase of inspiration.
[2022-06-18] MEDS: SYMBICORT 160-4.5 MCG INHALER INHALATION SCH ×2 (08:18→20:17)
[2022-06-18] MEDS: ALBUTEROL HFA INHALER INHALATION PRN ×3 (08:18→20:17)
[2022-06-18] MEDS: ASPIRIN 81 MG PO SCH (09:03)
[2022-06-18] MEDS: NITROGLYCERIN OINT 1 INCH/GM PACKET TOPICAL SCH ×4 (09:03→21:23)
[2022-06-18] MEDS: GABAPENTIN 400 MG CAP PO SCH ×3 (09:03→21:23)
[2022-06-18] MEDS: clonazePAM 1 MG TAB PO SCH ×3 (09:04→21:22)
[2022-06-18] MEDS: metFORMIN 500 MG TAB PO SCH ×2 (09:04→21:22)
[2022-06-18] MEDS: LORATADINE 10 MG TAB PO SCH (09:04)
[2022-06-18] MEDS: ATORVASTATIN 40 MG TAB PO SCH (09:04)
[2022-06-18] MEDS: EZETIMIBE 10 MG TAB PO SCH (09:04)
[2022-06-18] MEDS: ISOSORBIDE MONONITRATE ER 30 MG TAB.ER.24H PO SCH (09:04)
[2022-06-18] MEDS: VERAPAMIL SR 120 MG TABLET.ER PO SCH (09:04)
[2022-06-18] MEDS: PANTOPRAZOLE 40 MG TABLET PO SCH (09:04)
[2022-06-18] MEDS: LINAGLIPTIN 5 MG TABLET PO SCH (10:02)
[2022-06-18] MEDS: SERTRALINE 100 MG TAB PO SCH (10:02)
--- NOTE | 2022-06-18 11:15 | XR ---
EXAMINATION TYPE: XR Hip Limited RT DATE OF EXAM: 06/18/2022 COMPARISON: NONE HISTORY: Pain TECHNIQUE: 2 views submitted FINDINGS: There is no evidence of erosive change or acute fracture. Mild axial narrowing of the hip joint. Ther e is hypertrophic change of the acetabulum. IMPRESSION: 1. No evidence of acute fracture or dislocation. 2. Correlate for femoral acetabular impingement.
[2022-06-18 11:43] LABS: Glucose,Whole Blood 248 mg/dL (70-110)
--- NOTE | 2022-06-18 12:42 | P.PN ---
Subjective Progress Note Date: 06/18/22 Principal diagnosis: Acute on chronic hypoxic respiratory failure This is a 56-year-old male patient was hospitalized again yesterday for worsening shortness of breath. He was initially admitted to the medical floor and because of worsening shortness of breath. He is known to have COPD, hypertension, coronary artery disease, CHF with mild impairment of LV function with an ejection fraction of 45-50%. He has history of schizophrenia, depression and he was transferred to us originally from [facility] for hypoxic respiratory failure and development of diffuse bilateral pulmonary infiltrates that was considered to be a postinfectious ARDS. The patient has had multiple hospitalizations for the same. During his hospital stay, he receives antibiotics and steroids and he improves and he is discharged home to be readmitted. During his last hospitalization, he underwent a thoracoscopic wedge biopsy of the lung and the final diagnoses not been achieved yet as the samples have been sent [facility]. He has emphysema in addition to a chronic interstitial lung disease and the final pathology is not available yet. He was supposed to see me in the office tomorrow. Meanwhile, the patient became progressively more short of breath and the end up in the hospital again. I reviewed this patient's records going back to 2016. Going back to the CAT scan of the chest that was done in 2017, the patient at that time had evidence of extensive patchy groundglass pulmonary infiltrates and as such this infiltrates are not looking to be acute. Note that between 2016 and 2022, the patient did not have any follow-up chest x-rays and we don't have any pro gression of his underlying lung disease which could be formally chronic interstitial lung disease. He has had previous episodes of respiratory failure. He has smoked marijuana in the past none for the past 6 months and he has not smoked since his last hospitalization approximately 3 weeks ago. His swallow study was also negative for any underlying aspiration. As such, there may be an underlying chronic interstitial lung disease in this patient. The patient was progressively getting worse at home. He was discharged home on 40 mg of prednisone. The final pathology from his lung biopsy is not available yet. Our preliminary diagnosis was consistent with UIP, however, the samples were sent [facility] for a second opinion regarding the final pathologic findings. The patient was on 4 L. He became progressively more weak. He has been falling. His been having worsening shortness of breath. He was cough and he was making sputum. No chest pain. He was having difficulty with walking and ambulation. At that point, the patient was brought in to the hospital for further evaluation. He initially landed [facility] following that he was transferred to us. The current illicit count of 10.5 with a hemoglobin of 8.7 and a platelet count of 87. Sodium is at 138, potassium is at 4, creatinine is at 0.7 with a BUN of 24 and liver function tests are essentially within normal limits. Pro-calcitonin level is at 0.38. Troponins are 0.0 29. The patient is currently on IV Zosyn. Is currently on oxygen at 15 L nasal cannula and there is obvious worsening in his oxygenation. ProBNP level is 1240. Reevaluated today on 06/18/2022, patient remains in the ICU, still requiring high FiO2 of 70%, IPAP of 12 and EPAP of 6. Patient is comfortable on the BiPAP setting, O2 saturation is in the low 90s. Patient is not in distress. ABG on admission showed a pO2 of 115 pCO2 of 59 pH of 7.45 WBC count is 7.2 hemoglobin 7.6, baseline hemoglobin is 8.6 on his last discharge. Basic metabolic profile is normal except for bicarb of 40. Blood sugar is 248. Apparently the patient sustained a fall before he presented to the hospital, and he sustained significant area of ecchymosis over the right hip area and the right flank area today I recommended and x-ray of the right hip, there was no evidence of acute fracture or dislocation. Questionable femoral acetabular impingement. Patient has no problem in mobilizing the right hip area chest x-ray continues to show dense multifocal airspace opacities, much worse compared to his last chest x-ray upon discharge. Final pathology on his thoracoscopic lung biopsy is pending from the [facility]. Objective - Vital Signs Vital signs: Vital Signs Temp 97.5 F L 06/18/22 08:00 Pulse 64 06/18/22 11:00 Resp 16 06/18/22 11:00 BP 102/67 06/18/22 11:00 Pulse Ox 94 L 06/18/22 11:52 FiO2 85 06/18/22 11:52 Intake & Output 06/17/22 06/18/22 06/18/22 18:59 06:59 18:59 Intake Total 1426 110 150 Output Total 1425 725 600 Balance 1 -286 -439 Weight 97 kg Intake: IV 10 110 150 0.9% @ KVO 60 50 Invasive Line 1 10 Piperacillin-Tazobactam 3 50 100 .375 gm In Sodium Chloride 0.9% 100 ml @ 25 mls/hr IVPB Q8HR COUNT INCLUDES THE [facility] Rx# :[id number] Intake, IV Titration 100 Amount Piperacillin-Tazobactam 3 100 .375 gm In Sodium Chloride 0.9% 100 ml @ 25 mls/hr IVPB Q8HR [facility] Rx# :[id number] Oral 1316 Output: Urine 1425 725 600 Other: Voiding Method Urinal Urinal Urinal - Exam Physical Exam: Revealed a 56-year-old white male on BiPAP, in no distress. Head: Atraumatic, normocephalic. HEENT:[Neck is supple.] [No neck masses.] [No thyromegaly.] [No JVD.] Chest: Symmetrical chest expansion, crackles at the bases. Cardiac Exam: [Normal S1 and S2, no S3 gallop, no murmur.] Abdomen: [Soft, nontender, no megaly, no rebound, no guarding, normal bowel s ounds.] Large area of ecchymosis noted in the right flank area, right lower quadrant area, and over the hip area/right side. Extremities: [No clubbing, no edema, no cyanosis.] Neurological Exam: [No focal neurologic deficit.] Alert and oriented 3. Psychiatric: Normal mood affect and normal mental status examination. Skin: As noted above areas of ecchymosis in the right flank area, and the right hip area. - Labs CBC & Chem 7: 06/18/22 02:15 06/18/22 02:15 Labs: Abnormal Lab Results - Last 24 Hours (Table) 06/17/22 06/17/22 06/18/22 Range/Units 16:25 20:35 00:47 RBC (4.30-5.90) m/uL Hgb (13.0-17.5) gm/dL Hct (39.0-53.0) % RDW (11.5-15.5) % Plt Count (150-450) k/uL Lymphocytes # (1.0-4.8) k/uL ABG pCO2 (35-45) mmHg ABG pO2 (83-108) mmHg ABG HCO3 (21-25) mmol/L ABG Total CO2 (19-24) mmol/L ABG O2 Saturation (94-97) % Potassium (3.5-5.1) mmol/L Chloride (98-107) mmol/L Carbon Dioxide (22-30) mmol/L BUN (9-20) mg/dL Glucose (74-99) mg/dL POC Glucose (mg/dL) 211 H 313 H 265 H (70-110) mg/dL Calcium (8.4-10.2) mg/dL 06/18/22 06/18/22 06/18/22 Range/Units 02:15 02:15 02:30 RBC 2.58 L (4.30-5.90) m/uL Hgb 7.6 L (13.0-17.5) gm/dL Hct 23.9 L (39.0-53.0) % RDW 16.8 H (11.5-15.5) % Plt Count 75 L (150-450) k/uL Lymphocytes # 0.3 L (1.0-4.8) k/uL ABG pCO2 59 H (35-45) mmHg ABG pO2 115 H (83-108) mmHg ABG HCO3 41 H* (21-25) mmol/L ABG Total CO2 43 H (19-24) mmol/L ABG O2 Saturation 99.3 H (94-97) % Potassium 3.4 L (3.5-5.1) mmol/L Chloride 97 L (98-107) mmol/L Carbon Dioxide 40 H (22-30) mmol/L BUN 31 H (9-20) mg/dL Glucose 234 H (74-99) mg/dL POC Glucose (mg/dL) (70-110) mg/dL Calcium 7.4 L (8.4-10.2) mg/dL 06/18/22 06/18/22 Range/Units 06:46 11:42 RBC (4.30-5.90) m/uL Hgb (13.0-17.5) gm/dL Hct (39.0-53.0) % RDW (11.5-15.5) % Plt Count (150-450) k/uL Lymphocytes # (1.0-4.8) k/uL ABG pCO2 (35-45) mmHg ABG pO2 (83-108) mmHg ABG HCO3 (21-25) mmol/L ABG Total CO2 (19-24) mmol/L ABG O2 Saturation (94-97) % Potassium (3.5-5.1) mmol/L Chloride (98-107) mmol/L Carbon Dioxide (22-30) mmol/L BUN (9-20) mg/dL Glucose (74-99) mg/dL POC Glucose (mg/dL) 278 H 248 H (70-110) mg/dL Calcium (8.4-10.2) mg/dL Microbiology - Last 24 Hours (Table) 06/17/22 08:09 Blood Culture - Preliminary Blood No Growth after 24 hours Assessment and Plan Assessment: Impression: Acute on chronic hypoxic respiratory failure secondary to what seems to be a combination of organizing pneumonia and possible usual interstitial pneumonitis as noted on the pathology report from his last visit that's lung biopsy as read by our pathology department. Final pathology is pending from the [facility]. Severe underlying COPD Coronary artery disease Mildly impaired systolic dysfunction with mild congestive heart failure Benign essential hypertension Schizophrenia Bipolar disorder Dyslipidemia Obstructive sleep apnea syndrome History of seizure disorder Recommendation: Continue Solu-Medrol Continue Zosyn Continue BiPAP Continue steroids Will try to contact the [facility] for final pathology on his wedge biopsy of the lung done recently Continue diuretics We will continue to follow. Prognosis is guarded. Time with Patient: Less than 30
[2022-06-18 16:14] LABS: Glucose,Whole Blood 188 mg/dL (70-110)
[2022-06-18 21:01] LABS: Glucose,Whole Blood 246 mg/dL (70-110)
[2022-06-18] MEDS: HYDROcodone/APAP 7.5-325MG 1 EACH TAB PO PRN (21:30)
[2022-06-18] MEDS: traZODone HCL 50 MG TAB PO SCH (21:31)
[2022-06-18] MEDS: INSULIN DETEMIR (LEVEMIR) 100 UNIT/ML SYR SQ SCH (21:31)
[2022-06-19 04:25] LABS: Anisocytosis Slight; Basophils % (A) 0 %; Eosinophils % (A) 0 %; HCT 25.4 % (39.0-53.0); HGB 8.1 gm/dL (13.0-17.5); Hypochromasia Slight; Lymphocytes # (A) 0.3 k/uL (1.0-4.8); Lymphocytes % (A) 4 %; MCH 29.5 pg (25.0-35.0); MCV 92.3 fL (80.0-100.0); Mean Platelet Volume 8.9; Monocytes # (A) 0.3 k/uL (0-1.0); Monocytes % (A) 5 %; Neutrophils # (A) 5.8 k/uL (1.3-7.7); Neutrophils % (A) 90 %; Poikilocytosis Slight; RBC 2.76 m/uL (4.30-5.90); RDW 16.5 % (11.5-15.5); WBC 6.4 k/uL (3.8-10.6)
[2022-06-19 04:32] LABS: Platelet Count 81 k/uL (150-450)
[2022-06-19 04:33] LABS: African American GFR (CKD) >90 (>60 ml/min/1.73 sqM); Blood Urea Nitrogen 34 mg/dL (9-20); Calcium 7.6 mg/dL (8.4-10.2); Chloride 93 mmol/L (98-107); Glucose 200 mg/dL (74-99); Non-African American GFR(CKD) >90 (>60 ml/min/1.73 sqM); Potassium 3.7 mmol/L (3.5-5.1); Sodium 140 mmol/L (137-145)
[2022-06-19 04:39] LABS: Anion Gap 4 mmol/L
[2022-06-19 04:48] LABS: Carbon Dioxide 43 mmol/L (22-30)
[2022-06-19] MEDS ORDERED: Potassium Replacement Protocol 1 EACH MISC MISCELLANE PRN (04:49)
[2022-06-19] MEDS ORDERED: POTASSIUM BICARBONATE/CIT AC 20 MEQ TABLET.EFF NG-TUBE SCH (05:00)
[2022-06-19] MEDS: methylPREDNISolone SOD SUCCI 125 MG/2 ML VIAL IV SCH ×3 (05:28→17:10)
[2022-06-19 07:07] LABS: Glucose,Whole Blood 258 mg/dL (70-110)
[2022-06-19] MEDS: INSULIN ASPART (NovoLOG) 100 UNIT/ML VIAL SQ SCH ×4 (07:08→21:38)
--- NOTE | 2022-06-19 07:46 | XR ---
EXAMINATION TYPE: XR chest 1V DATE OF EXAM: 06/19/2022 6:12 AM COMPARISON: Chest radiographs from 06/18/2022 TECHNIQUE: XR chest 1V Frontal view of the chest. CLINICAL INDICATION:Male, 56 years old with history of Increased O2 demands; FINDINGS: Lungs/Pleura: Multifocal airspace opacities. No evidence of pneumothorax or pleural effusion. Pulmonary vascularity: Unremarkable. Heart/mediastinum: Cardiomediastinal silhouette is unremarkable. Musculoskeletal: No acute osseous pathology. IMPRESSION: Similar multifocal airspace opacities from prior examination concerning for pneumonia.
[2022-06-19] MEDS: ALBUTEROL HFA INHALER INHALATION PRN ×2 (08:25→12:01)
[2022-06-19] MEDS: SYMBICORT 160-4.5 MCG INHALER INHALATION SCH ×2 (08:25→21:07)
[2022-06-19] MEDS: PIPERACILLIN-TAZOBACTAM 3.375 GM in SODIUM CHLORIDE 0.9% 100 ML IVPB SCH ×2 (08:38→15:48)
[2022-06-19] MEDS: FUROSEMIDE 40 MG TAB PO SCH ×2 (08:39→15:48)
[2022-06-19] MEDS: LINAGLIPTIN 5 MG TABLET PO SCH (08:39)
[2022-06-19] MEDS: PANTOPRAZOLE 40 MG TABLET PO SCH (08:39)
[2022-06-19] MEDS: EZETIMIBE 10 MG TAB PO SCH (08:39)
[2022-06-19] MEDS: VERAPAMIL SR 120 MG TABLET.ER PO SCH (08:39)
[2022-06-19] MEDS: LORATADINE 10 MG TAB PO SCH (08:39)
[2022-06-19] MEDS: ATORVASTATIN 40 MG TAB PO SCH (08:39)
[2022-06-19] MEDS: GABAPENTIN 400 MG CAP PO SCH ×3 (08:39→21:38)
[2022-06-19] MEDS: SERTRALINE 100 MG TAB PO SCH (08:39)
[2022-06-19] MEDS: metFORMIN 500 MG TAB PO SCH ×2 (08:39→21:38)
[2022-06-19] MEDS: clonazePAM 1 MG TAB PO SCH ×3 (08:39→21:38)
[2022-06-19] MEDS: NITROGLYCERIN OINT 1 INCH/GM PACKET TOPICAL SCH (08:39)
[2022-06-19] MEDS: ISOSORBIDE MONONITRATE ER 30 MG TAB.ER.24H PO SCH (08:39)
[2022-06-19] MEDS: ASPIRIN 81 MG PO SCH (08:39)
[2022-06-19] MEDS: HYDROcodone/APAP 7.5-325MG 1 EACH TAB PO PRN (08:46)
--- NOTE | 2022-06-19 10:30 | P.PN ---
Subjective Progress Note Date: 06/18/22 This is a pleasant 56 years old male with multiple medical problems including Coronary Artery Disease , COPD, GERD/Reflux, Hyperlipidemia, Hypertension, Memory Impairment, seizure disorder, sleep apnea, bipolar and depression Nicotine dependence, previous history of drug abuse including cocaine and mariju car[place] Pt transfered from [facility]. Pt c/o SOB for the last 5 days since his been discharged from hospital, is gradually getting worse, he has dyspnea even with little exertion, he has difficulty talking because of his dyspnea. His cough and making the total phlegm. No chest pain.. He has difficulty walking. Last time was able to walk was about 1.5 week ago. No change in urine or bowel habits or abnormal symptoms. Patient currently saturating 94. 98% on 2 L oxygen via high flow nasal cannula, he is dyspneic and tachypneic with coughing and afebrile. Reviewing the records from [facility] lactic acid slightly elevated at 2.3, WBCs slightly up at 10.5, hemoglobin 8.7, platelets 87: CPK 58, sodium 138, potassium 4, glucose 263, creatinine 0.7, BUN elevated to 24. AST normal 30, ALT slightly elevated at 72. Bilirubin is normal at 1. Albumin 3.1. INR 1.0. Magnesium 1.6. Phosphorus 3, proBNP 1240. procalcitonin on 0.38 which is elevated, troponin was is within the reference range of 0.029. At [facility] he received IV Lasix, oral aspirin, nitroglycerin paste and nebulizer treatment. He was diagnosed with pneumonia, CHF with pulmonary fibrosis I reviewed this morning Chest x-ray today compared to 6 days ago, showing more right lower lobe infiltrate with possible pleural effusion. However it has better orientation a prolonged period, pending final report by radiologist 06/18/2022 Patient is in the MICU. Was on BiPAP and currently changed to high flow oxygen. ABG showed pH 7.45 pCO2 59 and PaO2 115. Chest x-ray showed dense multifocal airspace opacities. Patient is on antibiotics Zosyn. Recent lung biopsy showed patterns of interstitial fibrosis, chronic inflammation and extensive fibroblast foci and consolidation. Pending consultation and final characterization, sent to to a [facility]. Laboratory data showed WBC 7.2 hemoglobin 7.6 and platelets 75 sodium 139 potassium 3.4 chloride 97 bicarb is 40, BUN 31 and creatinine 0.81 and calcium 7.4. Current medications reviewed. Objective - Vital Signs Vital signs: Vital Signs Temp 97.2 F L 06/18/22 04:00 Pulse 57 L 06/18/22 07:00 Resp 24 06/18/22 07:00 BP 101/67 06/18/22 07:00 Pulse Ox 99 06/18/22 07:00 FiO2 50 06/18/22 08:18 Intake & Output 06/17/22 06/18/22 06/18/22 18:59 06:59 18:59 Intake Total 1426 110 120 Output Total 1425 725 0 Balance 1 -615 120 Intake: IV 10 110 120 0.9% @ KVO 60 20 Invasive Line 1 10 Piperacillin-Tazobactam 3 50 100 .375 gm In Sodium Chloride 0.9% 100 ml @ 25 mls/hr IVPB Q8HR [facility] Rx# :[id number] Intake, IV Titration 100 Amount Piperacillin-Tazobactam 3 100 .375 gm In Sodium Chloride 0.9% 100 ml @ 25 mls/hr IVPB Q8HR [facility] Rx# :[id number] Oral 1316 Output: Urine 1425 725 0 Other: Voiding Method Urinal Urinal - Exam PHYSICAL EXAMINATION: Patient is lying in the bed comfortably, no acute distress, awake alert and oriented.. HEENT: Normocephalic. Neck is supple. Pupils reactive. Nostrils clear. Oral cavity is moist. Neck reveals no JVD, carotid bruits, or thyromegaly. CHEST EXAMINATION: Trachea is central. Symmetrical expansion. Bibasilar diminished sounds and scattered fine crackles.. No wheezing. CARDIAC: Normal S1, S2 with no gallops. No murmurs ABDOMEN: Soft. Bowel sounds normal. No organomegaly. No abdominal bruits. Extremities: reveal no edema. No clubbing or cyanosis Neurologically awake, alert, oriented x3 with well-coordinated movements. No focal deficits noted Skin: No rash or skin lesions. Psychiatric: Coperative. Nonsuicidal Musculoskeletal: No joint swelling or deformity. Normal range of motion. - Labs CBC & Chem 7: 06/19/22 04:02 06/19/22 04:09 Labs: Abnormal Lab Results - Last 24 Hours (Table) 06/17/22 06/17/22 06/17/22 Range/Units 08:01 08:01 11:55 RBC (4.30-5.90) m/uL Hgb (13.0-17.5) gm/dL Hct (39.0-53.0) % RDW (11.5-15.5) % Plt Count (150-450) k/uL Lymphocytes # (1.0-4.8) k/uL ABG pCO2 (35-45) mmHg ABG pO2 (83-108) mmHg ABG HCO3 (21-25) mmol/L ABG Total CO2 (19-24) mmol/L ABG O2 Saturation (94-97) % Potassium (3.5-5.1) mmol/L Chloride (98-107) mmol/L Carbon Dioxide (22-30) mmol/L BUN (9-20) mg/dL Glucose (74-99) mg/dL POC Glucose (mg/dL) 240 H (70-110) mg/dL Hemoglobin A1c 8.4 H (0.0-6.0) % Calcium (8.4-10.2) mg/dL Procalcitonin 0.25 H (0.02-0.09) ng/mL 06/17/22 06/17/22 06/18/22 Range/Units 16:25 20:35 00:47 RBC (4.30-5.90) m/uL Hgb (13.0-17.5) gm/dL Hct (39.0-53.0) % RDW (11.5-15.5) % Plt Count (150-450) k/uL Lymphocytes # (1.0-4.8) k/uL ABG pCO2 (35-45) mmHg ABG pO2 (83-108) mmHg ABG HCO3 (21-25) mmol/L ABG Total CO2 (19-24) mmol/L ABG O2 Saturation (94-97) % Potassium (3.5-5.1) mmol/L Chloride (98-107) mmol/L Carbon Dioxide (22-30) mmol/L BUN (9-20) mg/dL Glucose (74-99) mg/dL POC Glucose (mg/dL) 211 H 313 H 265 H (70-110) mg/dL Hemoglobin A1c (0.0-6.0) % Calcium (8.4-10.2) mg/dL Procalcitonin (0.02-0.09) ng/mL 06/18/22 06/18/22 06/18/22 Range/Units 02:15 02:15 02:30 RBC 2.58 L (4.30-5.90) m/uL Hgb 7.6 L (13.0-17.5) gm/dL Hct 23.9 L (39.0-53.0) % RDW 16.8 H (11.5-15.5) % Plt Count 75 L (150-450) k/uL Lymphocytes # 0.3 L (1.0-4.8) k/uL ABG pCO2 59 H (35-45) mmHg ABG pO2 115 H (83-108) mmHg ABG HCO3 41 H* (21-25) mmol/L ABG Total CO2 43 H (19-24) mmol/L ABG O2 Saturation 99.3 H (94-97) % Potassium 3.4 L (3.5-5.1) mmol/L Chloride 97 L (98-107) mmol/L Carbon Dioxide 40 H (22-30) mmol/L BUN 31 H (9-20) mg/dL Glucose 234 H (74-99) mg/dL POC Glucose (mg/dL) (70-110) mg/dL Hemoglobin A1c (0.0-6.0) % Calcium 7.4 L (8.4-10.2) mg/dL Procalcitonin (0.02-0.09) ng/mL 06/18/22 Range/Units 06:46 RBC (4.30-5.90) m/uL Hgb (13.0-17.5) gm/dL Hct (39.0-53.0) % RDW (11.5-15.5) % Plt Count (150-450) k/uL Lymphocytes # (1.0-4.8) k/uL ABG pCO2 (35-45) mmHg ABG pO2 (83-108) mmHg ABG HCO3 (21-25) mmol/L ABG Total CO2 (19-24) mmol/L ABG O2 Saturation (94-97) % Potassium (3.5-5.1) mmol/L Chloride (98-107) mmol/L Carbon Dioxide (22-30) mmol/L BUN (9-20) mg/dL Glucose (74-99) mg/dL POC Glucose (mg/dL) 278 H (70-110) mg/dL Hemoglobin A1c (0.0-6.0) % Calcium (8.4-10.2) mg/dL Procalcitonin (0.02-0.09) ng/mL Assessment and Plan Assessment: Acute hypoxic respiratory failure on chronic hypoxic failure likely secondary to pneumonia and acute interstitial pneumonitis. Status post recent lung biopsy Bilateral pneumonia/organizing pneumonitis. Acute COPD exacerbation History of steroids responsive interstitial lung disease Bicytopenia with anemia and thrombocytopenia Diabetes mellitus Hypertension Hyperlipidemia History of coronary artery disease History of dementia and memory impairment History of seizure disorder History of sleep apnea History of bipolar Nicotine dependence previous history of drug abuse including cocaine and marijuana history of schizophrenia Plan: Patient is on high flow oxygen with 60 L and FiO2 80% today. starts patient on Zosyn, follow up sputum and blood culture Continue with Solu-Medrol Continue with Lasix. Currently on 40 mg every 8 fever. Negative influenza, RSV and COVID. DVT prophylaxis: Subcutaneous heparin GI Prophylaxis: Pepcid PT/OT: Pending Prognosis is guarded Discussed with the patient and his at bedside in detail. Time with Patient: Greater than 30
[2022-06-19 11:28] LABS: Glucose,Whole Blood 288 mg/dL (70-110)
[2022-06-19] MEDS ORDERED: POTASSIUM CHLORIDE ER 20 MEQ TAB.ER PO SCH (12:00)
--- NOTE | 2022-06-19 13:10 | P.PN ---
Subjective Progress Note Date: 06/19/22 Principal diagnosis: Acute on chronic hypoxic respiratory failure This is a 56-year-old male patient was hospitalized again yesterday for worsening shortness of breath. He was initially admitted to the medical floor and because of worsening shortness of breath. He is known to have COPD, hypertension, coronary artery disease, CHF with mild impairment of LV function with an ejection fraction of 45-50%. He has history of schizophrenia, depression and he was transferred to us originally from [facility] for hypoxic respiratory failure and development of diffuse bilateral pulmonary infiltrates that was considered to be a postinfectious ARDS. The patient has had multiple hospitalizations for the same. During his hospital stay, he receives antibiotics and steroids and he improves and he is discharged home to be readmitted. During his last hospitalization, he underwent a thoracoscopic wedge biopsy of the lung and the final diagnoses not been achieved yet as the samples have been sent [facility]. He has emphysema in addition to a chronic interstitial lung disease and the final pathology is not available yet. He was supposed to see me in the office tomorrow. Meanwhile, the patient became progressively more short of breath and the end up in the hospital again. I reviewed this patient's records going back to 2016. Going back to the CAT scan of the chest that was done in 2017, the patient at that time had evidence of extensive patchy groundglass pulmonary infiltrates and as such this infiltrates are not looking to be acute. Note that between 2016 and 2022, the patient did not have any follow-up chest x-rays and we don't have any pro gression of his underlying lung disease which could be formally chronic interstitial lung disease. He has had previous episodes of respiratory failure. He has smoked marijuana in the past none for the past 6 months and he has not smoked since his last hospitalization approximately 3 weeks ago. His swallow study was also negative for any underlying aspiration. As such, there may be an underlying chronic interstitial lung disease in this patient. The patient was progressively getting worse at home. He was discharged home on 40 mg of prednisone. The final pathology from his lung biopsy is not available yet. Our preliminary diagnosis was consistent with UIP, however, the samples were sent [facility] for a second opinion regarding the final pathologic findings. The patient was on 4 L. He became progressively more weak. He has been falling. His been having worsening shortness of breath. He was cough and he was making sputum. No chest pain. He was having difficulty with walking and ambulation. At that point, the patient was brought in to the hospital for further evaluation. He initially landed [facility] following that he was transferred to us. The current illicit count of 10.5 with a hemoglobin of 8.7 and a platelet count of 87. Sodium is at 138, potassium is at 4, creatinine is at 0.7 with a BUN of 24 and liver function tests are essentially within normal limits. Pro-calcitonin level is at 0.38. Troponins are 0.0 29. The patient is currently on IV Zosyn. Is currently on oxygen at 15 L nasal cannula and there is obvious worsening in his oxygenation. ProBNP level is 1240. Reevaluated today on 06/18/2022, patient remains in the ICU, still requiring high FiO2 of 70%, IPAP of 12 and EPAP of 6. Patient is comfortable on the BiPAP setting, O2 saturation is in the low 90s. Patient is not in distress. ABG on admission showed a pO2 of 115 pCO2 of 59 pH of 7.45 WBC count is 7.2 hemoglobin 7.6, baseline hemoglobin is 8.6 on his last discharge. Basic metabolic profile is normal except for bicarb of 40. Blood sugar is 248. Apparently the patient sustained a fall before he presented to the hospital, and he sustained significant area of ecchymosis over the right hip area and the right flank area today I recommended and x-ray of the right hip, there was no evidence of acute fracture or dislocation. Questionable femoral acetabular impingement. Patient has no problem in mobilizing the right hip area chest x-ray continues to show dense multifocal airspace opacities, much worse compared to his last chest x-ray upon discharge. Final pathology on his thoracoscopic lung biopsy is pending from the [facility]. Reevaluated today on 06/19/2022, patient remains in the ICU, he is presently on airvo, at 60 L flow with 83% FiO2, and O2 saturation is marginal done in the low 90s. Clinically the patient is about the same. That report from the [facility] just came back, and is basically consistent with cicatricial organizing pneumonia with mostly deposition of fibrous bands and loose granulation tissue/organizing pneumonia and this is basically a variant of cryptogenic organizing pneumonia. And shouldn't have a favorable response with the use of high doses of steroids. Actually the description made pathologically really fits into our patient's situation as we have noticed significant improvement with high-dose steroids on this patient on the past few admissions. It is definitely a steroids responsive process. And I believe the patient would have to be maintained on relatively high-dose of steroids even upon discharge, I would strongly recommend no less than 50 mg of 40 mg of prednisone daily maintenance for a while today's labs are unremarkable including a CBC and basic metabolic profile as well as renal profile. Objective - Vital Signs Vital signs: Vital Signs Temp 97.4 F L 06/19/22 08:00 Pulse 73 06/19/22 11:00 Resp 13 06/19/22 11:00 BP 106/67 06/19/22 11:00 Pulse Ox 98 06/19/22 11:00 FiO2 85 06/19/22 12:03 Intake & Output 06/18/22 06/19/22 06/19/22 18:59 06:59 18:59 Intake Total 330 610 360 Output Total 0090 193 6373 Balance -1620 -215 -665 Weight 97 kg 94.8 kg Intake: IV 330 110 160 0.9% @ KVO 130 110 60 Piperacillin-Tazobactam 3 200 100 .375 gm In Sodium Chloride 0.9% 100 ml @ 25 mls/hr IVPB Q8HR [facility] Rx# :[id number] Oral 500 200 Output: Urine 7054 540 3746 Other: Voiding Method Urinal Urinal Urinal # Voids 1 0 - Exam Physical Exam: Revealed a 56-year-old white male on airvo and relatively high FiO2 high flow. Head: Atraumatic, normocephalic. HEENT:[Neck is supple.] [No neck masses.] [No thyromegaly.] [No JVD.] Chest: Symmetrical chest expansion, crackles at the bases. Cardiac Exam: [Normal S1 and S2, no S3 gallop, no murmur.] Abdomen: [Soft, nontender, no megaly, no rebound, no guarding, normal bowel sounds.] Large area of ecchymosis noted in the right flank area, right lower quadrant area, and over the hip area/right side. Extremities: [No clubbing, no edema, no cyanosis.] Neurological Exam: [No focal neurologic deficit.] Alert and oriented 3. Psychiatric: Normal mood affect and normal mental status examination. Skin: As noted above areas of ecchymosis in the right flank area, and the right hip area. - Labs CBC & Chem 7: 06/19/22 04:02 06/19/22 10:46 Labs: Abnormal Lab Results - Last 24 Hours (Table) 06/18/22 06/18/22 06/19/22 Range/Units 16:13 20:59 04:02 RBC 2.76 L (4.30-5.90) m/uL Hgb 8.1 L (13.0-17.5) gm/dL Hct 25.4 L (39.0-53.0) % RDW 16.5 H (11.5-15.5) % Plt Count 81 L (150-450) k/uL Lymphocytes # 0.3 L (1.0-4.8) k/uL Chloride (98-107) mmol/L Carbon Dioxide (22-30) mmol/L BUN (9-20) mg/dL Glucose (74-99) mg/dL POC Glucose (mg/dL) 188 H 246 H (70-110) mg/dL Calcium (8.4-10.2) mg/dL 06/19/22 06/19/22 06/19/22 Range/Units 04:09 07:06 11:26 RBC (4.30-5.90) m/uL Hgb (13.0-17.5) gm/dL Hct (39.0-53.0) % RDW (11.5-15.5) % Plt Count (150-450) k/uL Lymphocytes # (1.0-4.8) k/uL Chloride 93 L (98-107) mmol/L Carbon Dioxide 43 H* (22-30) mmol/L BUN 34 H (9-20) mg/dL Glucose 200 H (74-99) mg/dL POC Glucose (mg/dL) 258 H 288 H (70-110) mg/dL Calcium 7.6 L (8.4-10.2) mg/dL Microbiology - Last 24 Hours (Table) 06/17/22 08:09 Blood Culture - Preliminary Blood No Growth after 48 hours Assessment and Plan Assessment: Impression: Acute on chronic hypoxic respiratory failure 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, steroids responsive Severe underlying COPD Coronary artery disease Mildly impaired systolic dysfunction with mild congestive heart failure Benign essential hypertension Schizophrenia Bipolar disorder Dyslipidemia Obstructive sleep apnea syndrome History of seizure disorder Recommendation: Continue Solu-Medrol, at 60 mg IV push every 6 hours Continue Zosyn Titrate FiO2 as tolerated Patient should remain on relatively high-dose of steroids upon discharge possibly 40 mg of prednisone daily for quite some time and should be followed up on outpatient basis Continue diuretics We will continue to follow. Prognosis is guarded. Time with Patient: Less than 30
--- NOTE | 2022-06-19 14:58 | P.PN ---
Progress Note - Text Progress Note Date: 06/19/22 This is a 56-year-old patient, follows with Dr. Carson. Chronic stable medical conditions include GERD, hyperlipidemia, hypertension, seizure disorder, hypothyroid, obstructive sleep apnea not able to use CPAP, bipolar. Smoker- until April 2022. admitted from May 03 through May 142022: - bilateral pneumonia, COPD exacerbation. Received Zosyn. left the hospital - on 4 L of oxygen. now presented to hospital with increasing shortness of breath for last 3 days. Fever and chills. Congested cough. Clear sputum production. Appetite has been fair. Able to walk around some. Patient was placed on the BiPAP the ER. And eventually moved to the ICU. Sitting up in bed awake. Short of breath. Admitted to the hospital from May 24 through June 11. - bilateral pneumonia, acute hypoxic respiratory failure, COPD exacerbation. Had remained on AIRVO. Underwent lung biopsy. for chronic infiltrates. Was discharged on 5 L nasal cannula. Now admitted by my colleagues on the June 17 shortness of breath. Patient was in the garage trying to climb into the house 3 steps had taken his oxygen off and the car. He fell backwards hitting his head on the concrete floor. Did not pass out. [place] to have pneumonia. IV Zosyn. 06/19/2022: ICU. AIRVO. 60 L, 85%. Eating well. Had a bowel movement. Patient's daughter at the bedside. Slight cough. Short of breath. IV Zosyn. IV Solu-Medrol. Patient lung biopsy is come back showing: Organizing pneumonia with fibrotic features Active Medications Hydrocodone Bitart/Acetaminophen (Hydrocodone/Apap 7.5-325mg 1 Each Tab) 1 each PO TID PRN PRN Reason: Pain Last Admin: 06/19/22 08:46 Dose: 1 each Albuterol Sulfate (Albuterol Hfa Inhaler) 1 puff INHALATION RT-Q4H PRN PRN Reason: Shortness Of Breath Last Admin: 06/19/22 12:01 Dose: 1 puff Aspirin (Aspirin 81 Mg) 81 mg PO DAILY [facility] Last Admin: 06/19/22 08:39 Dose: 81 mg Atorvastatin Calcium (Atorvastatin 40 Mg Tab) 40 mg PO DAILY [facility] Last Admin: 06/19/22 08:39 Dose: 40 mg Budesonide/Formoterol Fumarate (Symbicort 160-4.5 Mcg Inhaler) 1 puff INHALATION RT-BID [facility] Last Admin: 06/19/22 08:25 Dose: 1 puff Clonazepam (Clonazepam 1 Mg Tab) 1 mg PO TID [facility] Last Admin: 06/19/22 08:39 Dose: 1 mg Donepezil HCl (Donepezil 5 Mg Tab) 5 mg PO HS [facility] Last Admin: 06/18/22 21:23 Dose: 5 mg Ezetimibe (Ezetimibe 10 Mg Tab) 10 mg PO DAILY [facility] Last Admin: 06/19/22 08:39 Dose: 10 mg Furosemide (Furosemide 40 Mg Tab) 40 mg PO Q8HR [facility] Last Admin: 06/19/22 08:39 Dose: 40 mg Gabapentin (Gabapentin 400 Mg Cap) 400 mg PO TID [facility] Last Admin: 06/19/22 08:39 Dose: 400 mg Haloperidol (Haloperidol 2 Mg Tab) 2 mg PO DAILY [facility] Last Admin: 06/19/22 08:39 Dose: 2 mg Piperacillin Sod/Tazobactam (Sod 3.375 gm/ Sodium Chloride) 100 mls @ 25 mls/hr IVPB Q8HR [facility]; Protocol Last Admin: 06/19/22 08:38 Dose: 25 mls/hr Insulin Aspart (Insulin Aspart (Novolog) 100 Unit/Ml Vial) 0 unit SQ [facility]; Protocol Last Admin: 06/19/22 12:40 Dose: 6 unit Insulin Detemir (Insulin Detemir (Levemir) 100 Unit/Ml Syr) 15 unit SQ [facility] Last Admin: 06/18/22 21:31 Dose: 15 unit Isosorbide Mononitrate (Isosorbide Mononitrate Er 30 Mg Tab.Er.24h) 30 mg PO DAILY [facility] Last Admin: 06/19/22 08:39 Dose: 30 mg Linagliptin (Linagliptin 5 Mg Tablet) 5 mg PO DAILY [facility] Last Admin: 06/19/22 08:39 Dose: 5 mg Loratadine (Loratadine 10 Mg Tab) 10 mg PO DAILY [facility] Last Admin: 06/19/22 08:39 Dose: 10 mg Metformin HCl (Metformin 500 Mg Tab) 500 mg PO BID [facility] Last Admin: 06/19/22 08:39 Dose: 500 mg Methylprednisolone Sodium Succinate (Methylprednisolone Sod Succi 125 Mg/2 Ml Vial) 60 mg IV Q6HR [facility] Last Admin: 06/19/22 12:40 Dose: 60 mg Miscellaneous Information (Potassium Replacement Protocol 1 Each Misc) 1 each MISCELLANE DAILY PRN; Protocol PRN Reason: Per Protocol Miscellaneous Information (Potassium Replacement Protocol 1 Each Misc) 1 each MISCELLANE DAILY PRN; Protocol PRN Reason: Per Protocol Naloxone HCl (Naloxone 0.4 Mg/Ml 1 Ml Vial) 0.2 mg IV Q2M PRN PRN Reason: Opioid Reversal Pantoprazole Sodium (Pantoprazole 40 Mg Tablet) 40 mg PO DAILY [facility] Last Admin: 06/19/22 08:39 Dose: 40 mg Sertraline HCl (Sertraline 100 Mg Tab) 200 mg PO DAILY [facility] Last Admin: 06/19/22 08:39 Dose: 200 mg Trazodone HCl (Trazodone Hcl 50 Mg Tab) 150 mg PO HS [facility] Last Admin: 06/18/22 21:31 Dose: 150 mg Verapamil HCl (Verapamil Sr 120 Mg Tablet.Er) 120 mg PO DAILY [facility] Last Admin: 06/19/22 08:39 Dose: 120 mg Past medical history to include: COPD, GERD, hypertension, hyperlipidemia, some cognitive impairment, seizure disorder, obstructive sleep apnea does not use CPAP, hypothyroid, LAP-BAND with reversal, bipolar Social history: Lives with ex-, Dottie. Smoked For 44 years stopped in April 2022 . 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 Physical examination: VITAL SIGNS: 98.1, 75, 22, 103 with 74, 96% on AIRVO GENERAL:, Reclining in bed, short of breath EYES: Pupils equal. Conjunctiva normal. HEENT: External appearance of nose and ears normal, oral cavity grossly normal. NECK: JVD not raised; masses not palpable. HEART: First and second heart sounds are normal; no edema. LUNGS: Respiratory rate increased; decreased breath sounds , Basal fine crackles ABDOMEN: Soft, nontender, liver spleen not palpable, no masses palpable. PSYCH: Alert and oriented x3; mood and affect. Anxious. MUSCULOSKELETAL:No Clubbing/cyanosis;muscles-grossly intact INVESTIGATIONS, reviewed in the clinical context: 06/19/2022: White count 6.4 hemoglobin 8.1 platelets 81 potassium 3.7 bicarb 43 BUN 34 creatinine 0.87 Chest x-ray: biLateral infiltrates 2-D echocardiogram: [April 2022] EF 55-60%. Moderate LVH. Lung biopsy: [06/08/2022]: Organizing pneumonia with some fibrotic features/cicatrix Assessment and plan: -Bilateral pneumonia, suspected gram-negative organism : Slow to respond IV Zosyn. Check pro calcitonin. -Cicatracial organizing pneumonia for lung biopsy on 06/08/2022. slow to respond IV Solu-Medrol. -Acute hypoxic respiratory failure from pneumonia:: Slow to respond AIRVO. - chronic hypoxic respiratory failure from COPD/organizing pneumonia Home on 5 L of oxygen -Hyperlipidemia Lipitor 40 mg a day -Hyperglycemia secondary to steroids.: Metformin, Levemir. Follow Accu-Cheks -Mild cognitive impairment Aricept -Acute COPD exacerbation in a previous smoker: DuoNeb, Symbicort IV Solu-Medrol -GERD PPI -Bipolar disorder Zoloft 200, Klonopin 0.5 mg 3 times a day, trazodone 150 mg daily at bedtime, Haldol -Essential hypertension Verapamil SR 120 milligrams a day -Full code Continue IV Zosyn. IV Solu-Medrol. Add DuoNeb. Incentive spirometry. Up in a chair. Discussed with the patient and daughter the bedside.
[2022-06-19] MEDS ORDERED: IPRATROPIUM-ALBUTEROL 3 ML NEB INHALATION SCH ×2 (16:00→20:00)
[2022-06-19] MEDS ORDERED: ALBUTEROL NEBULIZED 2.5 MG/3 ML INHALATION ONE (16:28)
[2022-06-19 16:47] LABS: Glucose,Whole Blood 190 mg/dL (70-110)
[2022-06-19] MEDS: IPRATROPIUM 0.5 MG/2.5 ML NEBU INHALATION SCH ×2 (16:49→21:07)
[2022-06-19] MEDS ORDERED: ALBUTEROL NEBULIZED 2.5 MG/3 ML INHALATION PRN (17:00)
[2022-06-19 19:51] LABS: Glucose,Whole Blood 270 mg/dL (70-110)
[2022-06-19] MEDS: ALBUTEROL NEBULIZED 2.5 MG/3 ML INHALATION SCH (21:07)
[2022-06-19] MEDS: INSULIN DETEMIR (LEVEMIR) 100 UNIT/ML SYR SQ SCH (21:37)
[2022-06-19] MEDS: traZODone HCL 50 MG TAB PO SCH (21:38)
[2022-06-19] MEDS: DONEPEZIL 5 MG TAB PO SCH (21:38)
[2022-06-19 21:41] LABS: Glucose,Whole Blood 285 mg/dL (70-110)
[2022-06-19] MEDS: POTASSIUM BICARBONATE/CIT AC 20 MEQ TABLET.EFF NG-TUBE SCH (22:44)
[2022-06-20] MEDS: PIPERACILLIN-TAZOBACTAM 3.375 GM in SODIUM CHLORIDE 0.9% 100 ML IVPB SCH ×2 (00:07→08:23)
[2022-06-20] MEDS: FUROSEMIDE 40 MG TAB PO SCH ×2 (00:08→08:22)
[2022-06-20] MEDS: methylPREDNISolone SOD SUCCI 125 MG/2 ML VIAL IV SCH ×4 (00:08→18:19)
[2022-06-20] MEDS: POTASSIUM BICARBONATE/CIT AC 20 MEQ TABLET.EFF NG-TUBE SCH (00:08)
[2022-06-20] MEDS: HYDROcodone/APAP 7.5-325MG 1 EACH TAB PO PRN ×2 (04:37→21:08)
[2022-06-20 05:44] LABS: African American GFR (CKD) >90 (>60 ml/min/1.73 sqM); Blood Urea Nitrogen 40 mg/dL (9-20); Calcium 7.8 mg/dL (8.4-10.2); Chloride 93 mmol/L (98-107); Glucose 264 mg/dL (74-99); Non-African American GFR(CKD) >90 (>60 ml/min/1.73 sqM); Sodium 140 mmol/L (137-145)
[2022-06-20 05:51] LABS: Anion Gap 4 mmol/L
[2022-06-20 05:56] LABS: Anisocytosis Slight; Basophils % (A) 0 %; Eosinophils % (A) 1 %; HCT 26.3 % (39.0-53.0); HGB 8.2 gm/dL (13.0-17.5); Hypochromasia Slight; Lymphocytes # (A) 0.2 k/uL (1.0-4.8); Lymphocytes % (A) 4 %; MCH 28.7 pg (25.0-35.0); MCHC 31.3 g/dL (31.0-37.0); MCV 91.8 fL (80.0-100.0); Mean Platelet Volume 10.1; Monocytes # (A) 0.3 k/uL (0-1.0); Monocytes % (A) 5 %; Neutrophils # (A) 4.8 k/uL (1.3-7.7); Neutrophils % (A) 90 %; Poikilocytosis Slight; RBC 2.87 m/uL (4.30-5.90); RDW 16.4 % (11.5-15.5); WBC 5.3 k/uL (3.8-10.6)
[2022-06-20 06:35] LABS: Glucose,Whole Blood 286 mg/dL (70-110)
[2022-06-20] MEDS: INSULIN ASPART (NovoLOG) 100 UNIT/ML VIAL SQ SCH ×4 (06:38→21:08)
[2022-06-20 07:19] LABS: Carbon Dioxide 43 mmol/L (22-30)
[2022-06-20] MEDS: IPRATROPIUM 0.5 MG/2.5 ML NEBU INHALATION SCH ×4 (07:58→20:39)
[2022-06-20] MEDS: ALBUTEROL NEBULIZED 2.5 MG/3 ML INHALATION SCH ×4 (07:58→20:38)
[2022-06-20] MEDS: SYMBICORT 160-4.5 MCG INHALER INHALATION SCH ×2 (07:59→20:38)
[2022-06-20] MEDS: clonazePAM 1 MG TAB PO SCH ×3 (08:22→21:08)
[2022-06-20] MEDS: ISOSORBIDE MONONITRATE ER 30 MG TAB.ER.24H PO SCH (08:22)
[2022-06-20] MEDS: LINAGLIPTIN 5 MG TABLET PO SCH (08:22)
[2022-06-20] MEDS: SERTRALINE 100 MG TAB PO SCH (08:22)
[2022-06-20] MEDS: ASPIRIN 81 MG PO SCH (08:22)
[2022-06-20] MEDS: LORATADINE 10 MG TAB PO SCH (08:22)
[2022-06-20] MEDS: GABAPENTIN 400 MG CAP PO SCH ×3 (08:22→21:08)
[2022-06-20] MEDS: VERAPAMIL SR 120 MG TABLET.ER PO SCH (08:22)
[2022-06-20] MEDS: ATORVASTATIN 40 MG TAB PO SCH (08:22)
[2022-06-20] MEDS: EZETIMIBE 10 MG TAB PO SCH (08:22)
[2022-06-20] MEDS: PANTOPRAZOLE 40 MG TABLET PO SCH (08:23)
[2022-06-20] MEDS: metFORMIN 500 MG TAB PO SCH ×2 (08:23→21:07)
--- NOTE | 2022-06-20 09:00 | XR ---
EXAMINATION TYPE: XR chest 1V DATE OF EXAM: 06/20/2022 COMPARISON: 06/19/2012 HISTORY: Shortness of breath TECHNIQUE: Single frontal view of the chest is obtained. FINDINGS: Diffuse bilateral infiltrates. No sizable pleural effusion or pneumothorax. Limited inspir ation. Heart size normal. Osseous structures are stable. IMPRESSION: Bilateral infiltrates stable
[2022-06-20 09:04] LABS: Platelet Count 89 k/uL (150-450)
[2022-06-20] MEDS: ENOXAPARIN 30 MG/0.3 ML SYRINGE SQ SCH (10:30)
[2022-06-20 11:34] LABS: Glucose,Whole Blood 266 mg/dL (70-110)
--- NOTE | 2022-06-20 11:41 | P.PN ---
Progress Note - Text Progress Note Date: 06/20/22 This is a 56-year-old patient, follows with Dr. Carson. Chronic stable medical conditions include GERD, hyperlipidemia, hypertension, seizure disorder, hypothyroid, obstructive sleep apnea not able to use CPAP, bipolar. Smoker- until April 2022. admitted from May 03 through May 142022: - bilateral pneumonia, COPD exacerbation. Received Zosyn. left the hospital - on 4 L of oxygen. now presented to hospital with increasing shortness of breath for last 3 days. Fever and chills. Congested cough. Clear sputum production. Appetite has been fair. Able to walk around some. Patient was placed on the BiPAP the ER. And eventually moved to the ICU. Sitting up in bed awake. Short of breath. Admitted to the hospital from May 24 through June 11. - bilateral pneumonia, acute hypoxic respiratory failure, COPD exacerbation. Had remained on AIRVO. Underwent lung biopsy. for chronic infiltrates. Was discharged on 5 L nasal cannula. Now admitted by my colleagues on the June 17 shortness of breath. Patient was in the garage trying to climb into the house 3 steps had taken his oxygen off and the car. He fell backwards hitting his head on the concrete floor. Did not pass out. [place] to have pneumonia. IV Zosyn. 06/19/2022: ICU. AIRVO. 60 L, 85%. Eating well. Had a bowel movement. Patient's daughter at the bedside. Slight cough. Short of breath. IV Zosyn. IV Solu-Medrol. Patient lung biopsy is come back showing: Organizing pneumonia with fibrotic features 06/20/2022: ICU. AIRVO. 55 L, 55%. Eating some. Reclining in bed. Short of breath. Discussed with Dr. Adler. DC IV Zosyn. Continue IV Solu-Medrol. Reminded about incentive spirometry. Will be moved out of the ICU. Increase Levemir for hyperglycemia. Cutback Lasix to 40 mg a day. Active Medications Hydrocodone Bitart/Acetaminophen (Hydrocodone/Apap 7.5-325mg 1 Each Tab) 1 each PO TID PRN PRN Reason: Pain Last Admin: 06/20/22 04:37 Dose: 1 each Albuterol Sulfate (Albuterol Nebulized 2.5 Mg/3 Ml) 2.5 mg INHALATION RT-QID MARYLOU Last Admin: 06/20/22 11:29 Dose: 2.5 mg Albuterol Sulfate (Albuterol Nebulized 2.5 Mg/3 Ml) 2.5 mg INHALATION RT-Q4H PRN PRN Reason: Shortness Of Breath Or Wheezing Aspirin (Aspirin 81 Mg) 81 mg PO DAILY [facility] Last Admin: 06/20/22 08:22 Dose: 81 mg Atorvastatin Calcium (Atorvastatin 40 Mg Tab) 40 mg PO DAILY [facility] Last Admin: 06/20/22 08:22 Dose: 40 mg Budesonide/Formoterol Fumarate (Symbicort 160-4.5 Mcg Inhaler) 1 puff INHALATION RT-BID [facility] Last Admin: 06/20/22 07:59 Dose: 1 puff Clonazepam (Clonazepam 1 Mg Tab) 1 mg PO TID [facility] Last Admin: 06/20/22 08:22 Dose: 1 mg Donepezil HCl (Donepezil 5 Mg Tab) 5 mg PO [facility] Last Admin: 06/19/22 21:38 Dose: 5 mg Ezetimibe (Ezetimibe 10 Mg Tab) 10 mg PO DAILY [facility] Last Admin: 06/20/22 08:22 Dose: 10 mg Enoxaparin Sodium (Enoxaparin 30 Mg/0.3 Ml Syringe) 30 mg SQ DAILY [facility] Furosemide (Furosemide 40 Mg Tab) 40 mg PO DAILY [facility] Gabapentin (Gabapentin 400 Mg Cap) 400 mg PO TID [facility] Last Admin: 06/20/22 08:22 Dose: 400 mg Haloperidol (Haloperidol 2 Mg Tab) 2 mg PO DAILY [facility] Last Admin: 06/20/22 08:22 Dose: 2 mg Insulin Aspart (Insulin Aspart (Novolog) 100 Unit/Ml Vial) 0 unit SQ [facility]; Protocol Last Admin: 06/20/22 06:38 Dose: 6 unit Insulin Detemir (Insulin Detemir (Levemir) 100 Unit/Ml Syr) 22 unit SQ [facility] Ipratropium [place] (Ipratropium 0.5 Mg/2.5 Ml Nebu) 0.5 mg INHALATION RT-QID [facility] Last Admin: 06/20/22 11:29 Dose: 0.5 mg Isosorbide Mononitrate (Isosorbide Mononitrate Er 30 Mg Tab.Er.24h) 30 mg PO DAILY [facility] Last Admin: 06/20/22 08:22 Dose: 30 mg Linagliptin (Linagliptin 5 Mg Tablet) 5 mg PO DAILY [facility] Last Admin: 06/20/22 08:22 Dose: 5 mg Loratadine (Loratadine 10 Mg Tab) 10 mg PO DAILY [facility] Last Admin: 06/20/22 08:22 Dose: 10 mg Metformin HCl (Metformin 500 Mg Tab) 500 mg PO BID [facility] Last Admin: 06/20/22 08:23 Dose: 500 mg Methylprednisolone Sodium Succinate (Methylprednisolone Sod Succi 125 Mg/2 Ml Vial) 60 mg IV Q6HR [facility] Last Admin: 06/20/22 06:37 Dose: 60 mg Miscellaneous Information (Potassium Replacement Protocol 1 Each Misc) 1 each MISCELLANE DAILY PRN; Protocol PRN Reason: Per Protocol Naloxone HCl (Naloxone 0.4 Mg/Ml 1 Ml Vial) 0.2 mg IV Q2M PRN PRN Reason: Opioid Reversal Pantoprazole Sodium (Pantoprazole 40 Mg Tablet) 40 mg PO DAILY [facility] Last Admin: 06/20/22 08:23 Dose: 40 mg Sertraline HCl (Sertraline 100 Mg Tab) 200 mg PO DAILY [facility] Last Admin: 06/20/22 08:22 Dose: 200 mg Trazodone HCl (Trazodone Hcl 50 Mg Tab) 150 mg PO HS [facility] Last Admin: 06/19/22 21:38 Dose: 150 mg Verapamil HCl (Verapamil Sr 120 Mg Tablet.Er) 120 mg PO DAILY [facility] Last Admin: 06/20/22 08:22 Dose: 120 mg Past medical history to include: COPD, GERD, hypertension, hyperlipidemia, some cognitive impairment, seizure disorder, obstructive sleep apnea does not use CPAP, hypothyroid, LAP-BAND with reversal, bipolar Social history: Lives with ex-, Dottie. Smoked For 44 years stopped in April 2022 . 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 [employer]. Physical examination: VITAL SIGNS: 97.8, 75, 18, 11 6 x 79, 98% on AIRVO GENERAL:, Reclining in bed, short of breath EYES: Pupils equal. Conjunctiva normal. HEENT: External appearance of nose and ears normal, oral cavity grossly normal. NECK: JVD not raised; masses not palpable. HEART: First and second heart sounds are normal; no edema. LUNGS: Respiratory rate increased; decreased breath sounds , Basal fine crackles ABDOMEN: Soft, nontender, liver spleen not palpable, no masses palpable. PSYCH: Alert and oriented x3; mood and affect. Anxious. MUSCULOSKELETAL:No Clubbing/cyanosis;muscles-grossly intact INVESTIGATIONS, reviewed in the clinical context: 06/20/2022: White count 5.3 hemoglobin 8.2 platelets 89 potassium 4.0 bicarbonate 43 BUN 40 creatinine 0.85 06/19/2022: White count 6.4 hemoglobin 8.1 platelets 81 potassium 3.7 bicarb 43 BUN 34 creatinine 0.87 Chest x-ray: biLateral infiltrates 2-D echocardiogram: [April 2022] EF 55-60%. Moderate LVH. Lung biopsy: [06/08/2022]: Organizing pneumonia with some fibrotic features/cicatrix Assessment and plan: -No pneumonia. Stopped IV Zosyn. Discussed with Dr. 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 slow to respond IV Solu-Medrol. -Acute hypoxic respiratory failure from pneumonia:: Slow to respond AIRVO. 55/55 - chronic hypoxic respiratory failure from COPD/organizing pneumonia Home on 5 L of oxygen -Hyperlipidemia Lipitor 40 mg a day -Hyperglycemia secondary to steroids.: Metformin, Levemir increased to 22 units. Follow Accu-Cheks -Mild cognitive impairment Aricept -Metabolic alkalosis from diuresis Cutback Lasix -Acute COPD exacerbation in a previous smoker: DuoNeb, Symbicort IV Solu-Medrol -GERD PPI -Bipolar disorder Zoloft 200, Klonopin 0.5 mg 3 times a day, trazodone 150 mg daily at bedtime, Haldol -Essential hypertension Verapamil SR 120 milligrams a day -Full code Stopped IV Zosyn. IV Solu-Medrol. DuoNeb. Incentive spirometry. Up in a chair. Cutback Lasix to 40 mg day.
--- NOTE | 2022-06-20 12:25 | P.PN ---
Subjective Progress Note Date: 06/20/22 Principal diagnosis: Acute on chronic hypoxic respiratory failure This is a 56-year-old male patient was hospitalized again yesterday for worsening shortness of breath. He was initially admitted to the medical floor and because of worsening shortness of breath. He is known to have COPD, hypertension, coronary artery disease, CHF with mild impairment of LV function with an ejection fraction of 45-50%. He has history of schizophrenia, depression and he was transferred to us originally from [facility] for hypoxic respiratory failure and development of diffuse bilateral pulmonary infiltrates that was considered to be a postinfectious ARDS. The patient has had multiple hospitalizations for the same. During his hospital stay, he receives antibiotics and steroids and he improves and he is discharged home to be readmitted. During his last hospitalization, he underwent a thoracoscopic wedge biopsy of the lung and the final diagnoses not been achieved yet as the samples have been sent [facility]. He has emphysema in addition to a chronic interstitial lung disease and the final pathology is not available yet. He was supposed to see me in the office tomorrow. Meanwhile, the patient became progressively more short of breath and the end up in the hospital again. I reviewed this patient's records going back to 2016. Going back to the CAT scan of the chest that was done in 2017, the patient at that time had evidence of extensive patchy groundglass pulmonary infiltrates and as such this infiltrates are not looking to be acute. Note that between 2016 and 2022, the patient did not have any follow-up chest x-rays and we don't have any pro gression of his underlying lung disease which could be formally chronic interstitial lung disease. He has had previous episodes of respiratory failure. He has smoked marijuana in the past none for the past 6 months and he has not smoked since his last hospitalization approximately 3 weeks ago. His swallow study was also negative for any underlying aspiration. As such, there may be an underlying chronic interstitial lung disease in this patient. The patient was progressively getting worse at home. He was discharged home on 40 mg of prednisone. The final pathology from his lung biopsy is not available yet. Our preliminary diagnosis was consistent with UIP, however, the samples were sent [facility] for a second opinion regarding the final pathologic findings. The patient was on 4 L. He became progressively more weak. He has been falling. His been having worsening shortness of breath. He was cough and he was making sputum. No chest pain. He was having difficulty with walking and ambulation. At that point, the patient was brought in to the hospital for further evaluation. He initially landed [facility] following that he was transferred to us. The current illicit count of 10.5 with a hemoglobin of 8.7 and a platelet count of 87. Sodium is at 138, potassium is at 4, creatinine is at 0.7 with a BUN of 24 and liver function tests are essentially within normal limits. Pro-calcitonin level is at 0.38. Troponins are 0.0 29. The patient is currently on IV Zosyn. Is currently on oxygen at 15 L nasal cannula and there is obvious worsening in his oxygenation. ProBNP level is 1240. Reevaluated today on 06/18/2022, patient remains in the ICU, still requiring high FiO2 of 70%, IPAP of 12 and EPAP of 6. Patient is comfortable on the BiPAP setting, O2 saturation is in the low 90s. Patient is not in distress. ABG on admission showed a pO2 of 115 pCO2 of 59 pH of 7.45 WBC count is 7.2 hemoglobin 7.6, baseline hemoglobin is 8.6 on his last discharge. Basic metabolic profile is normal except for bicarb of 40. Blood sugar is 248. Apparently the patient sustained a fall before he presented to the hospital, and he sustained significant area of ecchymosis over the right hip area and the right flank area today I recommended and x-ray of the right hip, there was no evidence of acute fracture or dislocation. Questionable femoral acetabular impingement. Patient has no problem in mobilizing the right hip area chest x-ray continues to show dense multifocal airspace opacities, much worse compared to his last chest x-ray upon discharge. Final pathology on his thoracoscopic lung biopsy is pending from the [facility]. Reevaluated today on 06/19/2022, patient remains in the ICU, he is presently on airvo, at 60 L flow with 83% FiO2, and O2 saturation is marginal done in the low 90s. Clinically the patient is about the same. That report from the [facility] just came back, and is basically consistent with cicatricial organizing pneumonia with mostly deposition of fibrous bands and loose granulation tissue/organizing pneumonia and this is basically a variant of cryptogenic organizing pneumonia. And shouldn't have a favorable response with the use of high doses of steroids. Actually the description made pathologically really fits into our patient's situation as we have noticed significant improvement with high-dose steroids on this patient on the past few admissions. It is definitely a steroids responsive process. And I believe the patient would have to be maintained on relatively high-dose of steroids even upon discharge, I would strongly recommend no less than 50 mg of 40 mg of prednisone daily maintenance for a while today's labs are unremarkable including a CBC and basic metabolic profile as well as renal profile. E reevaluated today on 06/20/2022, patient is doing better, his FiO2 is down to 60% and flow down to 50%, chest x-ray is showing slight improvement. Patient remains on relatively high-dose of steroids. I will likely transfer the patient out of the ICU to a regular medical floor today. In the meantime we'll continue steroids, bronchodilators, and I will discontinue antibiotics. Now that I have a tissue diagnosis that matches the clinical diagnoses/steroids responsive interstitial lung disease. Objective - Vital Signs Vital signs: Vital Signs Temp 97.8 F 06/20/22 08:00 Pulse 73 06/20/22 11:39 Resp 26 H 06/20/22 11:00 BP 100/71 06/20/22 11:00 Pulse Ox 93 L 06/20/22 11:00 FiO2 55 06/20/22 11:50 Intake & Output 06/19/22 06/20/22 06/20/22 18:59 06:59 18:59 Intake Total 430 360 85 Output Total 0 800 550 Balance -1620 -440 -465 Weight 93 kg Intake: IV 230 120 85 0.9% @ KVO 130 120 10 Piperacillin-Tazobactam 3 100 75 .375 gm In Sodium Chloride 0.9% 100 ml @ 25 mls/hr IVPB Q8HR [facility] Rx# :[id number] Oral 200 240 Output: Urine 0 800 550 Other: Voiding Method Urinal Urinal Urinal # Voids 0 - Exam Physical Exam: Revealed a 56-year-old white male on airvo , FiO2 is 60% and fluids 50 L/m. Head: Atraumatic, normocephalic. HEENT:[Neck is supple.] [No neck masses.] [No thyromegaly.] [No JVD.] Chest: Symmetrical chest expansion, crackles at the bases. Cardiac Exam: [Normal S1 and S2, no S3 gallop, no murmur.] Abdomen: [Soft, nontender, no megaly, no rebound, no guarding, normal bowel sounds.] Large area of ecchymosis noted in the right flank area, right lower quadrant area, and over the hip area/right side. Extremities: [No clubbing, no edema, no cyanosis.] Neurological Exam: [No focal neurologic deficit.] Alert and oriented 3. Psychiatric: Normal mood affect and normal mental status examination. Skin: As noted above areas of ecchymosis in the right flank area, and the right hip area. - Labs CBC & Chem 7: 06/20/22 05:00 06/20/22 05:00 Labs: Abnormal Lab Results - Last 24 Hours (Table) 06/19/22 06/19/22 06/19/22 Range/Units 16:45 19:49 21:27 RBC (4.30-5.90) m/uL Hgb (13.0-17.5) gm/dL Hct (39.0-53.0) % RDW (11.5-15.5) % Plt Count (150-450) k/uL Lymphocytes # (1.0-4.8) k/uL Chloride (98-107) mmol/L Carbon Dioxide (22-30) mmol/L BUN (9-20) mg/dL Glucose (74-99) mg/dL POC Glucose (mg/dL) 190 H 270 H 285 H (70-110) mg/dL Calcium (8.4-10.2) mg/dL Procalcitonin (0.02-0.09) ng/mL 06/20/22 06/20/22 06/20/22 Range/Units 05:00 05:00 05:00 RBC 2.87 L (4.30-5.90) m/uL Hgb 8.2 L (13.0-17.5) gm/dL Hct 26.3 L (39.0-53.0) % RDW 16.4 H (11.5-15.5) % Plt Count 89 L (150-450) k/uL Lymphocytes # 0.2 L (1.0-4.8) k/uL Chloride 93 L (98-107) mmol/L Carbon Dioxide 43 H* (22-30) mmol/L BUN 40 H (9-20) mg/dL Glucose 264 H (74-99) mg/dL POC Glucose (mg/dL) (70-110) mg/dL Calcium 7.8 L (8.4-10.2) mg/dL Procalcitonin 0.13 H (0.02-0.09) ng/mL 06/20/22 06/20/22 Range/Units 06:34 11:32 RBC (4.30-5.90) m/uL Hgb (13.0-17.5) gm/dL Hct (39.0-53.0) % RDW (11.5-15.5) % Plt Count (150-450) k/uL Lymphocytes # (1.0-4.8) k/uL Chloride (98-107) mmol/L Carbon Dioxide (22-30) mmol/L BUN (9-20) mg/dL Glucose (74-99) mg/dL POC Glucose (mg/dL) 286 H 266 H (70-110) mg/dL Calcium (8.4-10.2) mg/dL Procalcitonin (0.02-0.09) ng/mL Microbiology - Last 24 Hours (Table) 06/17/22 08:09 Blood Culture - Preliminary Blood No Growth after 72 hours Assessment and Plan Assessment: Impression: Acute on chronic hypoxic respiratory failure 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 Titrate FiO2 as tolerated Transfer patient out of the ICU to a regular medical floor Continue diuretics, gentle diuresis We will continue to follow. Prognosis is guarded. Time with Patient: Less than 30
[2022-06-20 16:29] LABS: Glucose,Whole Blood 298 mg/dL (70-110)
[2022-06-20 20:41] LABS: Glucose,Whole Blood 312 mg/dL (70-110)
[2022-06-20] MEDS ORDERED: INSULIN DETEMIR (LEVEMIR) 100 UNIT/ML SYR SQ SCH (21:00)
[2022-06-20] MEDS: DONEPEZIL 5 MG TAB PO SCH (21:07)
[2022-06-20] MEDS: traZODone HCL 50 MG TAB PO SCH (21:09)
[2022-06-21] MEDS: methylPREDNISolone SOD SUCCI 125 MG/2 ML VIAL IV SCH ×5 (01:47→23:41)
[2022-06-21 06:35] LABS: Glucose,Whole Blood 325 mg/dL (70-110)
[2022-06-21] MEDS: INSULIN ASPART (NovoLOG) 100 UNIT/ML VIAL SQ SCH ×4 (06:47→20:51)
[2022-06-21] MEDS: IPRATROPIUM 0.5 MG/2.5 ML NEBU INHALATION SCH ×4 (07:52→20:10)
[2022-06-21] MEDS: ALBUTEROL NEBULIZED 2.5 MG/3 ML INHALATION SCH ×4 (07:52→20:10)
[2022-06-21] MEDS: SYMBICORT 160-4.5 MCG INHALER INHALATION SCH ×2 (07:59→20:10)
[2022-06-21] MEDS: ENOXAPARIN 30 MG/0.3 ML SYRINGE SQ SCH (08:21)
[2022-06-21] MEDS: VERAPAMIL SR 120 MG TABLET.ER PO SCH (08:22)
[2022-06-21] MEDS: GABAPENTIN 400 MG CAP PO SCH ×3 (08:22→20:51)
[2022-06-21] MEDS: metFORMIN 500 MG TAB PO SCH ×2 (08:22→20:51)
[2022-06-21] MEDS: SERTRALINE 100 MG TAB PO SCH (08:22)
[2022-06-21] MEDS: LINAGLIPTIN 5 MG TABLET PO SCH (08:22)
[2022-06-21] MEDS: ATORVASTATIN 40 MG TAB PO SCH (08:22)
[2022-06-21] MEDS: LORATADINE 10 MG TAB PO SCH (08:23)
[2022-06-21] MEDS: ASPIRIN 81 MG PO SCH (08:23)
[2022-06-21] MEDS: EZETIMIBE 10 MG TAB PO SCH (08:23)
[2022-06-21] MEDS: PANTOPRAZOLE 40 MG TABLET PO SCH (08:23)
[2022-06-21] MEDS: ISOSORBIDE MONONITRATE ER 30 MG TAB.ER.24H PO SCH (08:23)
[2022-06-21] MEDS: clonazePAM 1 MG TAB PO SCH ×3 (08:23→20:51)
[2022-06-21 11:45] LABS: Glucose,Whole Blood 240 mg/dL (70-110)
--- NOTE | 2022-06-21 12:34 | P.PN ---
Progress Note - Text Progress Note Date: 06/21/22 This is a 56-year-old patient, follows with Dr. Carson. Chronic stable medical conditions include GERD, hyperlipidemia, hypertension, seizure disorder, hypothyroid, obstructive sleep apnea not able to use CPAP, bipolar. Smoker- until April 2022. admitted from May 03 through May 142022: - bilateral pneumonia, COPD exacerbation. Received Zosyn. left the hospital - on 4 L of oxygen. now presented to hospital with increasing shortness of breath for last 3 days. Fever and chills. Congested cough. Clear sputum production. Appetite has been fair. Able to walk around some. Patient was placed on the BiPAP the ER. And eventually moved to the ICU. Sitting up in bed awake. Short of breath. Admitted to the hospital from May 24 through June 11. - bilateral pneumonia, acute hypoxic respiratory failure, COPD exacerbation. Had remained on AIRVO. Underwent lung biopsy. for chronic infiltrates. Was discharged on 5 L nasal cannula. Now admitted by my colleagues on the June 17 shortness of breath. Patient was in the garage trying to climb into the house 3 steps had taken his oxygen off and the car. He fell backwards hitting his head on the concrete floor. Did not pass out. [place] to have pneumonia. IV Zosyn. 06/19/2022: ICU. AIRVO. 60 L, 85%. Eating well. Had a bowel movement. Patient's daughter at the bedside. Slight cough. Short of breath. IV Zosyn. IV Solu-Medrol. Patient lung biopsy is come back showing: Organizing pneumonia with fibrotic features 06/20/2022: ICU. AIRVO. 55 L, 55%. Eating some. Reclining in bed. Short of breath. Discussed with Dr. Adler. DC IV Zosyn. Continue IV Solu-Medrol. Reminded about incentive spirometry. Will be moved out of the ICU. Increase Levemir for hyperglycemia. Cutback Lasix to 40 mg a day. 06/21/2022: ICU overflow. AIRVO 50/50. Short of breath. Eating. Had a bowel movement. Up in a recliner. On IV Solu-Medrol. Active Medications Hydrocodone Bitart/Acetaminophen (Hydrocodone/Apap 7.5-325mg 1 Each Tab) 1 each PO TID PRN PRN Reason: Pain Last Admin: 06/20/22 21:08 Dose: 1 each Albuterol Sulfate (Albuterol Nebulized 2.5 Mg/3 Ml) 2.5 mg INHALATION RT-QID [facility] Last Admin: 06/21/22 10:57 Dose: 2.5 mg Albuterol Sulfate (Albuterol Nebulized 2.5 Mg/3 Ml) 2.5 mg INHALATION RT-Q4H PRN PRN Reason: Shortness Of Breath Or Wheezing Aspirin (Aspirin 81 Mg) 81 mg PO DAILY [facility] Last Admin: 06/21/22 08:23 Dose: 81 mg Atorvastatin Calcium (Atorvastatin 40 Mg Tab) 40 mg PO DAILY [facility] Last Admin: 06/21/22 08:22 Dose: 40 mg Budesonide/Formoterol Fumarate (Symbicort 160-4.5 Mcg Inhaler) 1 puff INHALATION RT-BID [facility] Last Admin: 06/21/22 07:59 Dose: 1 puff Clonazepam (Clonazepam 1 Mg Tab) 1 mg PO TID [facility] Last Admin: 06/21/22 08:23 Dose: 1 mg Donepezil HCl (Donepezil 5 Mg Tab) 5 mg PO HS [facility] Last Admin: 06/20/22 21:07 Dose: 5 mg Ezetimibe (Ezetimibe 10 Mg Tab) 10 mg PO DAILY [facility] Last Admin: 06/21/22 08:23 Dose: 10 mg Enoxaparin Sodium (Enoxaparin 30 Mg/0.3 Ml Syringe) 30 mg SQ DAILY [facility] Last Admin: 06/21/22 08:21 Dose: 30 mg Furosemide (Furosemide 40 Mg Tab) 40 mg PO DAILY [facility] Gabapentin (Gabapentin 400 Mg Cap) 400 mg PO TID [facility] Last Admin: 06/21/22 08:22 Dose: 400 mg Haloperidol (Haloperidol 2 Mg Tab) 2 mg PO DAILY [facility] Last Admin: 06/21/22 08:23 Dose: 2 mg Insulin Aspart (Insulin Aspart (Novolog) 100 Unit/Ml Vial) 0 unit SQ [facility]; Protocol Last Admin: 06/21/22 11:53 Dose: 4 unit Insulin Detemir (Insulin Detemir (Levemir) 100 Unit/Ml Syr) 22 unit SQ [facility] Last Admin: 06/20/22 21:08 Dose: 22 unit Ipratropium [place] (Ipratropium 0.5 Mg/2.5 Ml Nebu) 0.5 mg INHALATION RT-QID [facility] Last Admin: 06/21/22 10:57 Dose: 0.5 mg Isosorbide Mononitrate (Isosorbide Mononitrate Er 30 Mg Tab.Er.24h) 30 mg PO DAILY [facility] Last Admin: 06/21/22 08:23 Dose: 30 mg Linagliptin (Linagliptin 5 Mg Tablet) 5 mg PO DAILY [facility] Last Admin: 06/21/22 08:22 Dose: 5 mg Loratadine (Loratadine 10 Mg Tab) 10 mg PO DAILY [facility] Last Admin: 06/21/22 08:23 Dose: 10 mg Metformin HCl (Metformin 500 Mg Tab) 500 mg PO BID [facility] Last Admin: 06/21/22 08:22 Dose: 500 mg Methylprednisolone Sodium Succinate (Methylprednisolone Sod Succi 125 Mg/2 Ml Vial) 60 mg IV Q6HR [facility] Last Admin: 06/21/22 11:53 Dose: 60 mg Miscellaneous Information (Potassium Replacement Protocol 1 Each Misc) 1 each MISCELLANE DAILY PRN; Protocol PRN Reason: Per Protocol Naloxone HCl (Naloxone 0.4 Mg/Ml 1 Ml Vial) 0.2 mg IV Q2M PRN PRN Reason: Opioid Reversal Pantoprazole Sodium (Pantoprazole 40 Mg Tablet) 40 mg PO DAILY [facility] Last Admin: 06/21/22 08:23 Dose: 40 mg Sertraline HCl (Sertraline 100 Mg Tab) 200 mg PO DAILY [facility] Last Admin: 06/21/22 08:22 Dose: 200 mg Trazodone HCl (Trazodone Hcl 50 Mg Tab) 150 mg PO HS [facility] Last Admin: 06/20/22 21:09 Dose: 150 mg Verapamil HCl (Verapamil Sr 120 Mg Tablet.Er) 120 mg PO DAILY [facility] Last Admin: 06/21/22 08:22 Dose: 120 mg Past medical history to include: COPD, GERD, hypertension, hyperlipidemia, some cognitive impairment, seizure disorder, obstructive sleep apnea does not use CPAP, hypothyroid, LAP-BAND with reversal, bipolar Social history: Lives with ex-, Dottie. Smoked For 44 years stopped in April 2022 . 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 Physical examination: VITAL SIGNS: 98.4, 75, 20, 113 / 78, 91% on AIRVO GENERAL:, Up in a recliner, short of breath EYES: Pupils equal. Conjunctiva normal. HEENT: External appearance of nose and ears normal, oral cavity grossly normal. NECK: JVD not raised; masses not palpable. HEART: First and second heart sounds are normal; no edema. LUNGS: Respiratory rate increased; decreased breath sounds , Basal fine crackles ABDOMEN: Soft, nontender, liver spleen not palpable, no masses palpable. PSYCH: Alert and oriented x3; mood and affect. Anxious. MUSCULOSKELETAL:No Clubbing/cyanosis;muscles-grossly intact INVESTIGATIONS, reviewed in the clinical context: 06/20/2022: White count 5.3 hemoglobin 8.2 platelets 89 potassium 4.0 bicarbonate 43 BUN 40 creatinine 0.85 06/19/2022: White count 6.4 hemoglobin 8.1 platelets 81 potassium 3.7 bicarb 43 BUN 34 creatinine 0.87 Chest x-ray: biLateral infiltrates 2-D echocardiogram: [April 2022] EF 55-60%. Moderate LVH. Lung biopsy: [06/08/2022]: Organizing pneumonia with some fibrotic features/cicatrix Assessment and plan: -No pneumonia. Stopped IV Zosyn. Discussed with Dr. 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 slow to respond IV Solu-Medrol. 60 mg every 6. -Acute hypoxic respiratory failure from pneumonia:: Slow to respond AIRVO. 50/50 - chronic hypoxic respiratory failure from COPD/organizing pneumonia Home on 5 L of oxygen -Hyperlipidemia Lipitor 40 mg a day -Hyperglycemia secondary to steroids.: Metformin, Levemir increased to 26 units. Follow Accu-Cheks -Mild cognitive impairment Aricept -Metabolic alkalosis from diuresis Cutback Lasix -Acute COPD exacerbation in a previous smoker: DuoNeb, Symbicort IV Solu-Medrol -GERD PPI -Bipolar disorder Zoloft 200, Klonopin 0.5 mg 3 times a day, trazodone 150 mg daily at bedtime, Haldol -Essential hypertension Verapamil SR 120 milligrams a day -Full code IV Solu-Medrol cutback to 60 mg every 8. DuoNeb. Incentive spirometry. Up in a chair. Discussed with patient.
--- NOTE | 2022-06-21 13:26 | P.PN ---
Subjective Progress Note Date: 06/21/22 Principal diagnosis: Acute on chronic hypoxic respiratory failure This is a 56-year-old male patient was hospitalized again yesterday for worsening shortness of breath. He was initially admitted to the medical floor and because of worsening shortness of breath. He is known to have COPD, hypertension, coronary artery disease, CHF with mild impairment of LV function with an ejection fraction of 45-50%. He has history of schizophrenia, depression and he was transferred to us originally from [facility] for hypoxic respiratory failure and development of diffuse bilateral pulmonary infiltrates that was considered to be a postinfectious ARDS. The patient has had multiple hospitalizations for the same. During his hospital stay, he receives antibiotics and steroids and he improves and he is discharged home to be readmitted. During his last hospitalization, he underwent a thoracoscopic wedge biopsy of the lung and the final diagnoses not been achieved yet as the samples have been sent [facility]. He has emphysema in addition to a chronic interstitial lung disease and the final pathology is not available yet. He was supposed to see me in the office tomorrow. Meanwhile, the patient became progressively more short of breath and the end up in the hospital again. I reviewed this patient's records going back to 2016. Going back to the CAT scan of the chest that was done in 2017, the patient at that time had evidence of extensive patchy groundglass pulmonary infiltrates and as such this infiltrates are not looking to be acute. Note that between 2016 and 2022, the patient did not have any follow-up chest x-rays and we don't have any pro gression of his underlying lung disease which could be formally chronic interstitial lung disease. He has had previous episodes of respiratory failure. He has smoked marijuana in the past none for the past 6 months and he has not smoked since his last hospitalization approximately 3 weeks ago. His swallow study was also negative for any underlying aspiration. As such, there may be an underlying chronic interstitial lung disease in this patient. The patient was progressively getting worse at home. He was discharged home on 40 mg of prednisone. The final pathology from his lung biopsy is not available yet. Our preliminary diagnosis was consistent with UIP, however, the samples were sent [facility] for a second opinion regarding the final pathologic findings. The patient was on 4 L. He became progressively more weak. He has been falling. His been having worsening shortness of breath. He was cough and he was making sputum. No chest pain. He was having difficulty with walking and ambulation. At that point, the patient was brought in to the hospital for further evaluation. He initially landed [facility] following that he was transferred to us. The current illicit count of 10.5 with a hemoglobin of 8.7 and a platelet count of 87. Sodium is at 138, potassium is at 4, creatinine is at 0.7 with a BUN of 24 and liver function tests are essentially within normal limits. Pro-calcitonin level is at 0.38. Troponins are 0.0 29. The patient is currently on IV Zosyn. Is currently on oxygen at 15 L nasal cannula and there is obvious worsening in his oxygenation. ProBNP level is 1240. Reevaluated today on 06/18/2022, patient remains in the ICU, still requiring high FiO2 of 70%, IPAP of 12 and EPAP of 6. Patient is comfortable on the BiPAP setting, O2 saturation is in the low 90s. Patient is not in distress. ABG on admission showed a pO2 of 115 pCO2 of 59 pH of 7.45 WBC count is 7.2 hemoglobin 7.6, baseline hemoglobin is 8.6 on his last discharge. Basic metabolic profile is normal except for bicarb of 40. Blood sugar is 248. Apparently the patient sustained a fall before he presented to the hospital, and he sustained significant area of ecchymosis over the right hip area and the right flank area today I recommended and x-ray of the right hip, there was no evidence of acute fracture or dislocation. Questionable femoral acetabular impingement. Patient has no problem in mobilizing the right hip area chest x-ray continues to show dense multifocal airspace opacities, much worse compared to his last chest x-ray upon discharge. Final pathology on his thoracoscopic lung biopsy is pending from the [facility]. Reevaluated today on 06/19/2022, patient remains in the ICU, he is presently on airvo, at 60 L flow with 83% FiO2, and O2 saturation is marginal done in the low 90s. Clinically the patient is about the same. That report from the [facility] just came back, and is basically consistent with cicatricial organizing pneumonia with mostly deposition of fibrous bands and loose granulation tissue/organizing pneumonia and this is basically a variant of cryptogenic organizing pneumonia. And shouldn't have a favorable response with the use of high doses of steroids. Actually the description made pathologically really fits into our patient's situation as we have noticed significant improvement with high-dose steroids on this patient on the past few admissions. It is definitely a steroids responsive process. And I believe the patient would have to be maintained on relatively high-dose of steroids even upon discharge, I would strongly recommend no less than 50 mg of 40 mg of prednisone daily maintenance for a while today's labs are unremarkable including a CBC and basic metabolic profile as well as renal profile. reevaluated today on 06/20/2022, patient is doing better, his FiO2 is down to 60% and flow down to 50%, chest x-ray is showing slight improvement. Patient remains on relatively high-dose of steroids. I will likely transfer the patient out of the ICU to a regular medical floor today. In the meantime we'll continue steroids, bronchodilators, and I will discontinue antibiotics. Now that I have a tissue diagnosis that matches the clinical diagnoses/steroids responsive interstitial lung disease. Reevaluated today on 06/21/2022, continues to gradually improve, he was on 55% FiO2 and 55 L flow with O2 sat from 96%, I cut him down to 50% FiO2 and 15 L flow kept his O2 saturation in the low 90s. Patient desaturates easily but recovers nicely with any activity. Remains on high-dose steroids, remains on bronchodilators, and I believe the patient could be transferred out of the ICU to a regular medical floor today. CBC is basically unremarkable. Basic metabolic profile is normal renal profile is normal bicarb is 43 Objective - Vital Signs Vital signs: Vital Signs Temp 98.4 F 06/21/22 08:00 Pulse 92 06/21/22 11:08 Resp 20 06/21/22 08:00 BP 113/78 06/21/22 08:00 Pulse Ox 91 L 06/21/22 11:04 FiO2 50 06/21/22 11:04 Intake & Output 06/20/22 06/21/22 06/21/22 18:59 06:59 18:59 Intake Total 85 540 Output Total 1350 500 Balance -1265 40 Intake: IV 85 0.9% @ KVO 10 Piperacillin-Tazobactam 3 75 .375 gm In Sodium Chloride 0.9% 100 ml @ 25 mls/hr IVPB Q8HR [facility] Rx# :[id number] Oral 540 Output: Urine 1350 500 Other: Voiding Method Urinal Urinal Urinal - Exam Physical Exam: Revealed a 56-year-old white male on airvo , FiO2 is 55% and f luids 55 Head: Atraumatic, normocephalic. HEENT:[Neck is supple.] [No neck masses.] [No thyromegaly.] [No JVD.] Chest: Symmetrical chest expansion, crackles at the bases. Cardiac Exam: [Normal S1 and S2, no S3 gallop, no murmur.] Abdomen: [Soft, nontender, no megaly, no rebound, no guarding, normal bowel sounds.] Large area of ecchymosis noted in the right flank area, right lower quadrant area, and over the hip area/right side. Extremities: [No clubbing, no edema, no cyanosis.] Neurological Exam: [No focal neurologic deficit.] Alert and oriented 3. Psychiatric: Normal mood affect and normal mental status examination. Skin: As noted above areas of ecchymosis in the right flank area, and the right hip area. 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 We will continue to follow. Prognosis is guarded. Time with Patient: Less than 30
[2022-06-21 16:51] LABS: Glucose,Whole Blood 289 mg/dL (70-110)
[2022-06-21 20:18] LABS: Glucose,Whole Blood 346 mg/dL (70-110)
[2022-06-21] MEDS: traZODone HCL 50 MG TAB PO SCH (20:51)
[2022-06-21] MEDS: HYDROcodone/APAP 7.5-325MG 1 EACH TAB PO PRN (20:51)
[2022-06-21] MEDS ORDERED: INSULIN DETEMIR (LEVEMIR) 100 UNIT/ML SYR SQ SCH (21:00)
[2022-06-21] MEDS: DONEPEZIL 5 MG TAB PO SCH (21:48)
[2022-06-22] MEDS: INSULIN ASPART (NovoLOG) 100 UNIT/ML VIAL SQ SCH ×4 (05:41→20:17)
[2022-06-22 05:54] LABS: Glucose,Whole Blood 281 mg/dL (70-110)
[2022-06-22] MEDS: SERTRALINE 100 MG TAB PO SCH (08:52)
[2022-06-22] MEDS: metFORMIN 500 MG TAB PO SCH ×2 (08:53→20:17)
[2022-06-22] MEDS: EZETIMIBE 10 MG TAB PO SCH (08:53)
[2022-06-22] MEDS: FUROSEMIDE 40 MG TAB PO SCH (08:53)
[2022-06-22] MEDS: ASPIRIN 81 MG PO SCH (08:53)
[2022-06-22] MEDS: ATORVASTATIN 40 MG TAB PO SCH (08:53)
[2022-06-22] MEDS: PANTOPRAZOLE 40 MG TABLET PO SCH (08:53)
[2022-06-22] MEDS: ISOSORBIDE MONONITRATE ER 30 MG TAB.ER.24H PO SCH (08:53)
[2022-06-22] MEDS: LORATADINE 10 MG TAB PO SCH (08:53)
[2022-06-22] MEDS: GABAPENTIN 400 MG CAP PO SCH ×3 (08:53→20:17)
[2022-06-22] MEDS: LINAGLIPTIN 5 MG TABLET PO SCH (08:53)
[2022-06-22] MEDS: VERAPAMIL SR 120 MG TABLET.ER PO SCH (08:53)
[2022-06-22] MEDS: clonazePAM 1 MG TAB PO SCH ×3 (08:53→20:17)
[2022-06-22] MEDS: ENOXAPARIN 30 MG/0.3 ML SYRINGE SQ SCH (08:54)
[2022-06-22] MEDS: methylPREDNISolone SOD SUCCI 125 MG/2 ML VIAL IV SCH ×3 (08:54→23:29)
[2022-06-22] MEDS: IPRATROPIUM 0.5 MG/2.5 ML NEBU INHALATION SCH ×4 (09:02→20:49)
[2022-06-22] MEDS: ALBUTEROL NEBULIZED 2.5 MG/3 ML INHALATION SCH ×4 (09:03→20:50)
[2022-06-22] MEDS: SYMBICORT 160-4.5 MCG INHALER INHALATION SCH ×2 (09:03→20:50)
[2022-06-22 11:50] LABS: Glucose,Whole Blood 295 mg/dL (70-110)
--- NOTE | 2022-06-22 13:39 | P.PN ---
Subjective Progress Note Date: 06/22/22 Reevaluated today on 06/18/2022, patient remains in the ICU, still requiring high FiO2 of 70%, IPAP of 12 and EPAP of 6. Patient is comfortable on the BiPAP setting, O2 saturation is in the low 90s. Patient is not in distress. ABG on admission showed a pO2 of 115 pCO2 of 59 pH of 7.45 WBC count is 7.2 hemoglobin 7.6, baseline hemoglobin is 8.6 on his last discharge. Basic metabolic profile is normal except for bicarb of 40. Blood sugar is 248. Apparently the patient sustained a fall before he presented to the hospital, and he sustained significant area of ecchymosis over the right hip area and the right flank area today I recommended and x-ray of the right hip, there was no evidence of acute fracture or dislocation. Questionable femoral acetabular impingement. Patient has no problem in mobilizing the right hip area chest x-ray continues to show dense multifocal airspace opacities, much worse compared to his last chest x-ray upon discharge. Final pathology on his thoracoscopic lung biopsy is pending from the [facility]. Reevaluated today on 06/19/2022, patient remains in the ICU, he is presently on airvo, at 60 L flow with 83% FiO2, and O2 saturation is marginal done in the low 90s. Clinically the patient is about the same. That report from the [facility] just came back, and is basically consistent with cicatricial organizing pneumonia with mostly deposition of fibrous bands and loose granulation tissue/organizing pneumonia and this is basically a variant of cryptogenic organizing pneumonia. And shouldn't have a favorable response with the use of high doses of steroids. Actually the description made pathologically really fits into our patient's situation as we have noticed significant improvement with high-dose steroids on this patient on the past few admissions. It is definitely a steroids responsive process. And I believe the patient would have to be maintained on relatively high-dose of steroids even upon discharge, I would strongly recommend no less than 50 mg of 40 mg of prednisone daily maintenance for a while today's labs are unremarkable including a CBC and basic metabolic profile as well as renal profile. reevaluated today on 06/20/2022, patient is doing better, his FiO2 is down to 60% and flow down to 50%, chest x-ray is showing slight improvement. Patient remains on relatively high-dose of steroids. I will likely transfer the patient out of the ICU to a regular medical floor today. In the meantime we'll continue steroids, bronchodilators, and I will discontinue antibiotics. Now that I have a tissue diagnosis that matches the clinical diagnoses/steroids responsive interstitial lung disease. Reevaluated today on 06/21/2022, continues to gradually improve, he was on 55% FiO2 and 55 L flow with O2 sat from 96%, I cut him down to 50% FiO2 and 15 L flow kept his O2 saturation in the low 90s. Patient desaturates easily but recovers nicely with any activity. Remains on high-dose steroids, remains on bronchodilators, and I believe the patient could be transferred out of the ICU to a regular medical floor today. CBC is basically unremarkable. Basic metabolic profile is normal renal profile is normal bicarb is 43 The patient is seen today 06/22/2022 in follow-up on the selective care unit. He is currently sitting up at the bedside. Awake and alert in no acute distress. He is maintaining good O2 saturations in the 90s on AirVo for high flow oxygen at 50 L and 60% FiO2. He is continued on Symbicort, albuterol, IV Solu-Medrol. Lovenox for DVT prophylaxis. Objective - Vital Signs Vital signs: Vital Signs Temp 97.5 F L 06/22/22 08:00 Pulse 84 06/22/22 12:15 Resp 20 06/22/22 08:00 BP 120/80 06/22/22 08:00 Pulse Ox 97 06/22/22 09:06 FiO2 40 06/22/22 12:08 Intake & Output 06/21/22 06/22/22 06/22/22 18:59 06:59 18:59 Intake Total 360 780 Output Total 200 825 275 Balance 160 -825 505 Intake: Oral 360 780 Output: Urine 200 825 275 Other: Voiding Method Urinal Urinal Urinal - Exam GENERAL EXAM: Alert, pleasant 56-year-old male patient, and AirVo high flow oxygen at 15 L and 60% FiO2, comfortable in no apparent distress. HEAD: Normocephalic. EYES: Normal reaction of pupils, equal size. NOSE: Clear with pink turbinates. THROAT: No erythema or exudates. NECK: No masses, no JVD. CHEST: No chest wall deformity. LUNGS: Equal air entry with coarse crackles in posterior bases. CVS: S1 and S2 normal with no audible murmur, regular rhythm. ABDOMEN: No hepatosplenomegaly, normal bowel sounds, no guarding or rigidity. SPINE: No scoliosis or deformity SKIN: No rashes CENTRAL NERVOUS SYSTEM: No focal deficits, tone is normal in all 4 extremities. EXTREMITIES: There is no peripheral edema. No clubbing, no cyanosis. Perip heral pulses are intact. 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, steroids responsive Severe underlying COPD Coronary artery disease Mildly impaired systolic dysfunction with mild congestive heart failure Benign essential hypertension Schizophrenia Bipolar disorder Dyslipidemia Obstructive sleep apnea syndrome History of seizure disorder Plan: The patient was seen and evaluated Remains on AirVo high flow oxygen at 15 L and 60% FiO2 Instructed RN/RT to keep O2 saturations between 88 and 93% Titrate down the FiO2 as tolerated Continue the current treatment plan We'll continue to follow I have personally seen and examined the patient, performed the documentation and the assessment and plan as written. Number of minutes spent on the visit: 10.
[2022-06-22] MEDS: HYDROcodone/APAP 7.5-325MG 1 EACH TAB PO PRN (15:17)
--- NOTE | 2022-06-22 15:50 | P.PN ---
Progress Note - Text Progress Note Date: 06/22/22 This is a 56-year-old patient, follows with Dr. Carson. Chronic stable medical conditions include GERD, hyperlipidemia, hypertension, seizure disorder, hypothyroid, obstructive sleep apnea not able to use CPAP, bipolar. Smoker- until April 2022. admitted from May 03 through May 142022: - bilateral pneumonia, COPD exacerbation. Received Zosyn. left the hospital - on 4 L of oxygen. now presented to hospital with increasing shortness of breath for last 3 days. Fever and chills. Congested cough. Clear sputum production. Appetite has been fair. Able to walk around some. Patient was placed on the BiPAP the ER. And eventually moved to the ICU. Sitting up in bed awake. Short of breath. Admitted to the hospital from May 24 through June 11. - bilateral pneumonia, acute hypoxic respiratory failure, COPD exacerbation. Had remained on AIRVO. Underwent lung biopsy. for chronic infiltrates. Was discharged on 5 L nasal cannula. Now admitted by my colleagues on the June 17 shortness of breath. Patient was in the garage trying to climb into the house 3 steps had taken his oxygen off and the car. He fell backwards hitting his head on the concrete floor. Did not pass out. [place] to have pneumonia. IV Zosyn. 06/19/2022: ICU. AIRVO. 60 L, 85%. Eating well. Had a bowel movement. Patient's daughter at the bedside. Slight cough. Short of breath. IV Zosyn. IV Solu-Medrol. Patient lung biopsy is come back showing: Organizing pneumonia with fibrotic features 06/20/2022: ICU. AIRVO. 55 L, 55%. Eating some. Reclining in bed. Short of breath. Discussed with Dr. Adler. DC IV Zosyn. Continue IV Solu-Medrol. Reminded about incentive spirometry. Will be moved out of the ICU. Increase Levemir for hyperglycemia. Cutback Lasix to 40 mg a day. 06/21/2022: ICU overflow. AIRVO 50/50. Short of breath. Eating. Had a bowel movement. Up in a recliner. On IV Solu-Medrol. 06/22/2022: AIRVO. Decreased to 50/40. Short of breath. Eating well. IV Solu-Medrol decreased yesterday to 60 mg every 6. Active Medications Hydrocodone Bitart/Acetaminophen (Hydrocodone/Apap 7.5-325mg 1 Each Tab) 1 each PO TID PRN PRN Reason: Pain Last Admin: 06/22/22 15:17 Dose: 1 each Albuterol Sulfate (Albuterol Nebulized 2.5 Mg/3 Ml) 2.5 mg INHALATION RT-QID [facility] Last Admin: 06/22/22 15:33 Dose: 2.5 mg Albuterol Sulfate (Albuterol Nebulized 2.5 Mg/3 Ml) 2.5 mg INHALATION RT-Q4H PRN PRN Reason: Shortness Of Breath Or Wheezing Aspirin (Aspirin 81 Mg) 81 mg PO DAILY [facility] Last Admin: 06/22/22 08:53 Dose: 81 mg Atorvastatin Calcium (Atorvastatin 40 Mg Tab) 40 mg PO DAILY [facility] Last Admin: 06/22/22 08:53 Dose: 40 mg Budesonide/Formoterol Fumarate (Symbicort 160-4.5 Mcg Inhaler) 1 puff INHALATION RT-BID [facility] Last Admin: 06/22/22 09:03 Dose: 1 puff Clonazepam (Clonazepam 1 Mg Tab) 1 mg PO TID [facility] Last Admin: 06/22/22 15:18 Dose: 1 mg Donepezil HCl (Donepezil 5 Mg Tab) 5 mg PO HS [facility] Last Admin: 06/21/22 21:48 Dose: 5 mg Ezetimibe (Ezetimibe 10 Mg Tab) 10 mg PO DAILY [facility] Last Admin: 06/22/22 08:53 Dose: 10 mg Enoxaparin Sodium (Enoxaparin 30 Mg/0.3 Ml Syringe) 30 mg SQ DAILY [facility] Last Admin: 06/22/22 08:54 Dose: 30 mg Furosemide (Furosemide 40 Mg Tab) 40 mg PO DAILY [facility] Last Admin: 06/22/22 08:53 Dose: 40 mg Gabapentin (Gabapentin 400 Mg Cap) 400 mg PO TID [facility] Last Admin: 06/22/22 15:18 Dose: 400 mg Haloperidol (Haloperidol 2 Mg Tab) 2 mg PO DAILY [facility] Last Admin: 06/22/22 08:53 Dose: 2 mg Insulin Aspart (Insulin Aspart (Novolog) 100 Unit/Ml Vial) 0 unit SQ ACHS [facility]; Protocol Last Admin: 06/22/22 12:33 Dose: 6 unit Insulin Detemir (Insulin Detemir (Levemir) 100 Unit/Ml Syr) 26 unit SQ HS [facility] Last Admin: 06/21/22 20:51 Dose: 26 unit Ipratropium [place] (Ipratropium 0.5 Mg/2.5 Ml Nebu) 0.5 mg INHALATION RT-QID [facility] Last Admin: 06/22/22 15:33 Dose: 0.5 mg Isosorbide Mononitrate (Isosorbide Mononitrate Er 30 Mg Tab.Er.24h) 30 mg PO DAILY [facility] Last Admin: 06/22/22 08:53 Dose: 30 mg Linagliptin (Linagliptin 5 Mg Tablet) 5 mg PO DAILY [facility] Last Admin: 06/22/22 08:53 Dose: 5 mg Loratadine (Loratadine 10 Mg Tab) 10 mg PO DAILY [facility] Last Admin: 06/22/22 08:53 Dose: 10 mg Metformin HCl (Metformin 500 Mg Tab) 500 mg PO BID [facility] Last Admin: 06/22/22 08:53 Dose: 500 mg Methylprednisolone Sodium Succinate (Methylprednisolone Sod Succi 125 Mg/2 Ml Vial) 60 mg IV Q8H [facility] Last Admin: 06/22/22 15:18 Dose: 60 mg Miscellaneous Information (Potassium Replacement Protocol 1 Each Misc) 1 each MISCELLANE DAILY PRN; Protocol PRN Reason: Per Protocol Naloxone HCl (Naloxone 0.4 Mg/Ml 1 Ml Vial) 0.2 mg IV Q2M PRN PRN Reason: Opioid Reversal Pantoprazole Sodium (Pantoprazole 40 Mg Tablet) 40 mg PO DAILY [facility] Last Admin: 06/22/22 08:53 Dose: 40 mg Sertraline HCl (Sertraline 100 Mg Tab) 200 mg PO DAILY [facility] Last Admin: 06/22/22 08:52 Dose: 200 mg Trazodone HCl (Trazodone Hcl 50 Mg Tab) 150 mg PO HS [facility] Last Admin: 06/21/22 20:51 Dose: 150 mg Verapamil HCl (Verapamil Sr 120 Mg Tablet.Er) 120 mg PO DAILY [facility] Last Admin: 06/22/22 08:53 Dose: 120 mg Past medical history to include: COPD, GERD, hypertension, hyperlipidemia, some cognitive impairment, seizure disorder, obstructive sleep apnea does not use CPAP, hypothyroid, LAP-BAND with reversal, bipolar Social history: Lives with ex-, Dottie. Smoked For 44 years stopped in April 2022 . 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 Physical examination: VITAL SIGNS: 98, 93, 20, 11 3 x 58, 88% on AIRVO GENERAL:, Up in a recliner, short of breath EYES: Pupils equal. Conjunctiva normal. HEENT: External appearance of nose and ears normal, oral cavity grossly normal. NECK: JVD not raised; masses not palpable. HEART: First and second heart sounds are normal; no edema. LUNGS: Respiratory rate increased; decreased breath sounds , Basal fine crackles ABDOMEN: Soft, nontender, liver spleen not palpable, no masses palpable. PSYCH: Alert and oriented x3; mood and affect. Anxious. MUSCULOSKELETAL:No Clubbing/cyanosis;muscles-grossly intact INVESTIGATIONS, reviewed in the clinical context: 06/20/2022: White count 5.3 hemoglobin 8.2 platelets 89 potassium 4.0 bicarbonate 43 BUN 40 creatinine 0.85 06/19/2022: White count 6.4 hemoglobin 8.1 platelets 81 potassium 3.7 bicarb 43 BUN 34 creatinine 0.87 Chest x-ray: biLateral infiltrates 2-D echocardiogram: [April 2022] EF 55-60%. Moderate LVH. Lung biopsy: [06/08/2022]: Organizing pneumonia with some fibrotic features/cicatrix Assessment and plan: -No pneumonia. Stopped IV Zosyn. Discussed with Dr. 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 slow to respond IV Solu-Medrol. 60 mg every 8. -Acute hypoxic respiratory failure from pneumonia:: Slow to respond AIRVO. 50/40 - chronic hypoxic respiratory failure from COPD/organizing pneumonia Home on 5 L of oxygen -Hyperlipidemia Lipitor 40 mg a day -Hyperglycemia secondary to steroids.: Metformin, Levemir increased to 30 units. Follow Accu-Cheks -Mild cognitive impairment Aricept -Metabolic alkalosis from diuresis Cutback Lasix -Acute COPD exacerbation in a previous smoker: DuoNeb, Symbicort IV Solu-Medrol -GERD PPI -Bipolar disorder Zoloft 200, Klonopin 0.5 mg 3 times a day, trazodone 150 mg daily at bedtime, Haldol -Essential hypertension Verapamil SR 120 milligrams a day -Full code IV Solu-Medrol 60 mg every 8. DuoNeb. Incentive spirometry. Up in a chair. Discussed with patient. Increase Levemir
[2022-06-22 16:16] LABS: Glucose,Whole Blood 227 mg/dL (70-110)
[2022-06-22 20:00] LABS: Glucose,Whole Blood 269 mg/dL (70-110)
[2022-06-22] MEDS: DONEPEZIL 5 MG TAB PO SCH (20:17)
[2022-06-22] MEDS: traZODone HCL 50 MG TAB PO SCH (20:17)
[2022-06-22] MEDS ORDERED: INSULIN DETEMIR (LEVEMIR) 100 UNIT/ML SYR SQ SCH (21:00)
[2022-06-23] MEDS ORDERED: DILTIAZEM DRIP BOLUS FROM BAG 1 MG SOLN IV ONE (02:47)
[2022-06-23] MEDS ORDERED: DILTIAZEM 125 MG in SODIUM CHLORIDE 0.9% 100 ML IV SCH (03:00)
[2022-06-23 06:15] LABS: Glucose,Whole Blood 231 mg/dL (70-110)
[2022-06-23] MEDS: INSULIN ASPART (NovoLOG) 100 UNIT/ML VIAL SQ SCH ×4 (06:24→20:32)
[2022-06-23] MEDS: VERAPAMIL SR 120 MG TABLET.ER PO SCH (08:03)
[2022-06-23] MEDS: IPRATROPIUM 0.5 MG/2.5 ML NEBU INHALATION SCH ×4 (08:26→20:49)
[2022-06-23] MEDS: ALBUTEROL NEBULIZED 2.5 MG/3 ML INHALATION SCH ×4 (08:26→20:49)
[2022-06-23] MEDS: SYMBICORT 160-4.5 MCG INHALER INHALATION SCH ×2 (08:31→20:49)
[2022-06-23 08:41] LABS: African American GFR (CKD) >90 (>60 ml/min/1.73 sqM); Blood Urea Nitrogen 29 mg/dL (9-20); Calcium 8.2 mg/dL (8.4-10.2); Chloride 90 mmol/L (98-107); Glucose 215 mg/dL (74-99); Magnesium 2.1 mg/dL (1.6-2.3); Non-African American GFR(CKD) >90 (>60 ml/min/1.73 sqM); Sodium 134 mmol/L (137-145)
[2022-06-23 08:47] LABS: Anion Gap 3 mmol/L
[2022-06-23 08:49] LABS: Carbon Dioxide 41 mmol/L (22-30)
[2022-06-23 08:57] LABS: Anisocytosis Slight; HCT 27.5 % (39.0-53.0); HGB 9.1 gm/dL (13.0-17.5); Hypochromasia Moderate; MCH 29.9 pg (25.0-35.0); MCHC 33.2 g/dL (31.0-37.0); Mean Platelet Volume 9.8; Poikilocytosis Moderate; RBC 3.05 m/uL (4.30-5.90); RDW 17.3 % (11.5-15.5)
[2022-06-23 08:59] LABS: Platelet Count 143 k/uL (150-450)
[2022-06-23] MEDS: FUROSEMIDE 40 MG TAB PO SCH (09:48)
[2022-06-23] MEDS: ATORVASTATIN 40 MG TAB PO SCH (09:48)
[2022-06-23] MEDS: GABAPENTIN 400 MG CAP PO SCH ×3 (09:48→20:33)
[2022-06-23] MEDS: SERTRALINE 100 MG TAB PO SCH (09:48)
[2022-06-23] MEDS: ISOSORBIDE MONONITRATE ER 30 MG TAB.ER.24H PO SCH (09:48)
[2022-06-23] MEDS: LORATADINE 10 MG TAB PO SCH (09:48)
[2022-06-23] MEDS: LINAGLIPTIN 5 MG TABLET PO SCH (09:48)
[2022-06-23] MEDS: EZETIMIBE 10 MG TAB PO SCH (09:48)
[2022-06-23] MEDS: metFORMIN 500 MG TAB PO SCH ×2 (09:49→20:33)
[2022-06-23] MEDS: ASPIRIN 81 MG PO SCH (09:49)
[2022-06-23] MEDS: ENOXAPARIN 30 MG/0.3 ML SYRINGE SQ SCH (09:49)
[2022-06-23] MEDS: methylPREDNISolone SOD SUCCI 125 MG/2 ML VIAL IV SCH ×4 (09:49→23:25)
[2022-06-23] MEDS: PANTOPRAZOLE 40 MG TABLET PO SCH (09:49)
[2022-06-23] MEDS: clonazePAM 1 MG TAB PO SCH ×3 (09:49→20:33)
[2022-06-23 09:53] LABS: T4, Free (Free Thyroxine) 0.54 ng/dL (0.78-2.19)
[2022-06-23] MEDS ORDERED: ONDANSETRON 4 MG/2 ML VIAL IVP PRN (10:56)
[2022-06-23 11:01] LABS: Band Neutrophils % 1 %; Metamyelocytes # (M) 0.07 k/uL (0); Metamyelocytes % 1 %; Monocytes # (M) 0.21 k/uL (0-1.0); Myelocytes # (M) 0.14 k/uL (0); Myelocytes % 2 %; Neutrophils % (M) 87 %; Nucleated Red Blood Cells 2 /100 WBC (0-0); Total Cells Counted 200
[2022-06-23 11:02] LABS: Lymphocytes # (M) 0.49 k/uL (1.0-4.8)
[2022-06-23 11:05] LABS: Polychromasia Present
[2022-06-23 11:06] LABS: Tear Drop Cells Present
[2022-06-23 11:38] LABS: Glucose,Whole Blood 244 mg/dL (70-110)
--- NOTE | 2022-06-23 13:14 | P.PN ---
Subjective Progress Note Date: 06/23/22 Reevaluated today on 06/18/2022, patient remains in the ICU, still requiring high FiO2 of 70%, IPAP of 12 and EPAP of 6. Patient is comfortable on the BiPAP setting, O2 saturation is in the low 90s. Patient is not in distress. ABG on admission showed a pO2 of 115 pCO2 of 59 pH of 7.45 WBC count is 7.2 hemoglobin 7.6, baseline hemoglobin is 8.6 on his last discharge. Basic metabolic profile is normal except for bicarb of 40. Blood sugar is 248. Apparently the patient sustained a fall before he presented to the hospital, and he sustained significant area of ecchymosis over the right hip area and the right flank area today I recommended and x-ray of the right hip, there was no evidence of acute fracture or dislocation. Questionable femoral acetabular impingement. Patient has no problem in mobilizing the right hip area chest x-ray continues to show dense multifocal airspace opacities, much worse compared to his last chest x-ray upon discharge. Final pathology on his thoracoscopic lung biopsy is pending from the [facility]. Reevaluated today on 06/19/2022, patient remains in the ICU, he is presently on airvo, at 60 L flow with 83% FiO2, and O2 saturation is marginal done in the low 90s. Clinically the patient is about the same. That report from the [facility] just came back, and is basically consistent with cicatricial organizing pneumonia with mostly deposition of fibrous bands and loose granulation tissue/organizing pneumonia and this is basically a variant of cryptogenic organizing pneumonia. And shouldn't have a favorable response with the use of high doses of steroids. Actually the description made pathologically really fits into our patient's situation as we have noticed significant improvement with high-dose steroids on this patient on the past few admissions. It is definitely a steroids responsive process. And I believe the patient would have to be maintained on relatively high-dose of steroids even upon discharge, I would strongly recommend no less than 50 mg of 40 mg of prednisone daily maintenance for a while today's labs are unremarkable including a CBC and basic metabolic profile as well as renal profile. reevaluated today on 06/20/2022, patient is doing better, his FiO2 is down to 60% and flow down to 50%, chest x-ray is showing slight improvement. Patient remains on relatively high-dose of steroids. I will likely transfer the patient out of the ICU to a regular medical floor today. In the meantime we'll continue steroids, bronchodilators, and I will discontinue antibiotics. Now that I have a tissue diagnosis that matches the clinical diagnoses/steroids responsive interstitial lung disease. Reevaluated today on 06/21/2022, continues to gradually improve, he was on 55% FiO2 and 55 L flow with O2 sat from 96%, I cut him down to 50% FiO2 and 15 L flow kept his O2 saturation in the low 90s. Patient desaturates easily but recovers nicely with any activity. Remains on high-dose steroids, remains on bronchodilators, and I believe the patient could be transferred out of the ICU to a regular medical floor today. CBC is basically unremarkable. Basic metabolic profile is normal renal profile is normal bicarb is 43 The patient is seen today 06/22/2022 in follow-up on the selective care unit. He is currently sitting up at the bedside. Awake and alert in no acute distress. He is maintaining good O2 saturations in the 90s on AirVo for high flow oxygen at 50 L and 60% FiO2. He is continued on Symbicort, albuterol, IV Solu-Medrol. Lovenox for DVT prophylaxis. The patient's today 06/23/2022 in follow-up on the selective care unit. He is awake and alert in no acute distress. He remains on AirVo high flow oxygen currently at 40 L and 40% FiO2. He denies any worsening shortness of breath, cough or congestion. Feeling better each day. Continued on IV Solu-Medrol. Blood cultures reveal no growth. White count 7.0. Hemoglobin 9.1. Platelets 143. Sodium 134. Bicarb 41. BUN 29. Creatinine 0.71. Glucose 215. Lovenox for DVT prophylaxis per Objective - Vital Signs Vital signs: Vital Signs Temp 97.8 F 06/23/22 12:00 Pulse 108 H 06/23/22 12:27 Resp 21 06/23/22 12:00 BP 129/78 06/23/22 12:00 Pulse Ox 90 L 06/23/22 12:00 FiO2 40 06/23/22 12:00 Intake & Output 06/22/22 06/23/22 06/23/22 18:59 06:59 18:59 Intake Total 780 780 Output Total 275 550 Balance 505 -550 780 Intake: Oral 780 780 Output: Urine 275 550 Other: Voiding Method Urinal Urinal Urinal # Voids 1 # Bowel Movements 1 - Exam GENERAL EXAM: Alert, 56-year-old male patient, on AirVo high flow oxygen at 40 L and 40% FiO2, comfortable in no apparent distress. HEAD: Normocephalic. EYES: Normal reaction of pupils, equal size. NOSE: Clear with pink turbinates. THROAT: No erythema or exudates. NECK: No masses, no JVD. CHEST: No chest wall deformity. LUNGS: Equal air entry with coarse crackles in posterior bases. CVS: S1 and S2 normal with no audible murmur, regular rhythm. ABDOMEN: No hepatosplenomegaly, normal bowel sounds, no guarding or rigidity. SPINE: No scoliosis or deformity SKIN: No rashes CENTRAL NERVOUS SYSTEM: No focal deficits, tone is normal in all 4 extremities. EXTREMITIES: There is no peripheral edema. No clubbing, no cyanosis. Peripheral pulses are intact. - Labs CBC & Chem 7: 06/23/22 08:15 06/23/22 08:15 Labs: Abnormal Lab Results - Last 24 Hours (Table) 06/22/22 06/22/22 06/23/22 Range/Units 16:11 19:59 06:14 RBC (4.30-5.90) m/uL Hgb (13.0-17.5) gm/dL Hct (39.0-53.0) % RDW (11.5-15.5) % Plt Count (150-450) k/uL Lymphocytes # (Manual) (1.0-4.8) k/uL Metamyelocytes # (Man) (0) k/uL Myelocytes # (Manual) (0) k/uL Nucleated RBCs (0-0) /100 WBC Sodium (137-145) mmol/L Chloride (98-107) mmol/L Carbon Dioxide (22-30) mmol/L BUN (9-20) mg/dL Glucose (74-99) mg/dL POC Glucose (mg/dL) 227 H 269 H 231 H (70-110) mg/dL Calcium (8.4-10.2) mg/dL TSH (0.465-4.680) mIU/L Free T4 (0.78-2.19) ng/dL 06/23/22 06/23/22 06/23/22 Range/Units 08:15 08:15 11:36 RBC 3.05 L (4.30-5.90) m/uL Hgb 9.1 L (13.0-17.5) gm/dL Hct 27.5 L (39.0-53.0) % RDW 17.3 H (11.5-15.5) % Plt Count 143 L D (150-450) k/uL Lymphocytes # (Manual) 0.49 L (1.0-4.8) k/uL Metamyelocytes # (Man) 0.07 H (0) k/uL Myelocytes # (Manual) 0.14 H (0) k/uL Nucleated RBCs 2 H (0-0) /100 WBC Sodium 134 L (137-145) mmol/L Chloride 90 L (98-107) mmol/L Carbon Dioxide 41 H* (22-30) mmol/L BUN 29 H (9-20) mg/dL Glucose 215 H (74-99) mg/dL POC Glucose (mg/dL) 244 H (70-110) mg/dL Calcium 8.2 L (8.4-10.2) mg/dL TSH 0.138 L (0.465-4.680) mIU/L Free T4 0.54 L (0.78-2.19) ng/dL Microbiology - Last 24 Hours (Table) 06/17/22 08:09 Blood Culture - Final Blood No Growth after 144 hours Assessment and Plan Assessment: Acute on chronic hypoxic respiratory failure 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, steroids responsive Severe underlying COPD Coronary artery disease Mildly impaired systolic dysfunction with mild congestive heart failure Benign essential hypertension Schizophrenia Bipolar disorder Dyslipidemia Obstructive sleep apnea syndrome History of seizure disorder Plan: The patient was seen and evaluated Medications and labs reviewed Remains on AirVo high flow oxygen at 40 L and 40% FiO2 Instructed RN/RT to keep O2 saturations between 88 and 93% Titrate down the FiO2 as tolerated Continue Solu-Medrol at 60 mg every 6 hours Adjust insulin as needed Lovenox for DVT prophylaxis We'll continue to follow I have personally seen and examined the patient, performed the documentation and the assessment and plan as written. Number of minutes spent on the visit: 10.
--- NOTE | 2022-06-23 14:25 | P.CRDCN ---
History of Present Illness Consult date: 06/23/22 Consult reason: atrial fibrillation Chief complaint: shortness of breath History of present illness: History of present illness: Patient is a pleasant 56-year-old male with significant past medical history of COPD, GERD, hypertension, hyperlipidemia, seizure disorder, diabetes, hypothyroid, obstructive sleep apnea, bipolar, former smoker quit 04/30 he was admitted 06/16/22 for respiratory distress. Cardiology was consulted for new onset atrial fibrillation with RVR overnight. He follows with Dr. Ayon in the office. It is questionable if he has had atrial fibrillation in the past. He reports that he couldn't feel his heart racing but had mild chest pain last night, denies any dizziness, shortness of breath is stable on high flow nasal cannula oxygen. He has had multiple admissions in the past 3 months for pn eumonia, COPD exacerbation, respiratory failure. He had an echo 05/24/22 that showed an EF of 5560 percent. He had a heart catheterization 09/06/21 that showed calcified vessel with diffuse atherosclerotic plaque and a large dominant right coronary artery and a moderate area of stenosis in mid LAD. Hgb A1C is 8.4. REVIEW OF SYSTEMS: No fever or chills. No cough or expectoration. No diaphoresis. Patient denies headache, dizziness, blurred vision, double vision. Patient denies any stomach discomfort. No nausea, vomiting. No hematochezia. No hematemesis. Denies any black stools or blood in his stools. Denies dysuria or hematuria. No muscle weakness or numbness. No chest pain or pressure. PHYSICAL EXAMINATION: This is a 56 year-old male, mildly short of breath. HEENT: Head is atraumatic, normocephalic. Pupils are equal, round. Sclerae anicteric. Conjunctivae are clear. Mucous membranes of the mouth are moist. Neck is supple. There is no jugular venous distention. No carotid bruit is heard. CHEST EXAMINATION: Lungs are diminished, on high flow NC O2. No chest wall tenderness is noted on palpation or with deep breathing. HEART EXAMINATION: Heart regular rate and rhythm. S1, S2 heard. No murmurs, gallops or rub. ABDOMEN: Soft, nontender. Bowel sounds are heard. EXTREMITIES: 2+ peripheral pulses with no evidence of peripheral edema and no calf tenderness noted. NEUROLOGIC EXAMINATION: Patient is awake, alert and oriented x3. IMPRESSION AND PLAN: New onset atrial fibrillation with RVR, currently in sinus rhythm Hypertension Hyperlipidemia Respiratory distress COPD Diabetes PLAN: [id number] score is 3 for CAD, hypertension, and diabetes. Discussed stroke risk with atrial fibrillation and recommend anticoagulation for stroke prevention. Risks and benefits of anticoagulation discussed with patient and parents at bedside. Will stop aspirin and start Eliquis 5mg po BID for stroke prevention. Stop cardizem drip. Increase verapamil to 180 mg daily. We'll continue to follow. I am dictating on behalf of Dr. Mynor Anderson's history/physical and assessment/plan. Past Medical History Past Medical History: Coronary Artery Disease (CAD), COPD, GERD/Reflux, Hyperlipidemia, Hypertension, Memory Impairment, Pneumonia, Respiratory Disorder, Seizure Disorder, Skin Disorder, Sleep Apnea/CPAP/BIPAP Additional Past Medical History / Comment(s): FREQUENT VOMITING. HX ABSCESSES ON LEGS WITH MRSA, HX MRSA ON FACE, NECK, RIGHT THIGH AND LEFT CALF. CELLULTIS. HX SEIZURE X2, LAST IN 2011(BIT PART OF TONGUE OFF). HX BACK FRACTURE(2002), HX L1 COMPRESSION FRACTURE. ENLARGED HEART. CHRONIC BRONCHITIS. History of Any Multi-Drug Resistant Organisms: MRSA Date of last positivie culture/infection: 03/07/16 MDRO Source:: LEFT LEG Past Surgical History: Adenoidectomy, Appendectomy, Cholecystectomy, Heart Cat heterization, Hernia Repair, Tonsillectomy Additional Past Surgical History / Comment(s): ABD HERNIA REPAIR X3, VENTRAL HERNIA REPAIR, LAP BAND, LAP REMOVAL OF LAP BAND AND PORT, COLONOSCOPY, EGD, EXCISION OF MRSA FROM FACE, NECK AND LEGS. UP3 surgery Past Anesthesia/Blood Transfusion Reactions: Previous Problems w/ Anesthesia Additional Past Anesthesia/Blood Transfusion Reaction / Comment(s): 1985 DURING TONSILLECTOMY AND ADENOIDECTOMY DEVELOPED FLUID IN LUNGS, WAS PUT ON VENT. Past Psychological History: Bipolar, Depression Additional Psychological History / Comment(s): . Smoking Status: Current some day smoker Past Alcohol Use History: None Reported Additional Past Alcohol Use History / Comment(s): HX OF SMOKING OFF/ON SINCE AGE 12, UP TO 1 PPD. Past Drug Use History: Cocaine, Marijuana Additional Drug Use History / Comment(s): previous marijuana and cocaine, no coke use for 20 years - Past Family History Mother Family Medical History: No Reported History Additional Family Medical History / Comment(s): PT STATED MOM IS HEALTHY Father Family Medical History: Cancer Additional Family Medical History / Comment(s): LYMPHOMA. Medications and Allergies Home Medications Medication Instructions Recorded Confirmed Type HYDROcodone/APAP 7.5-325MG [[place] 1 tab PO TID PRN 04/25/18 06/16/22 History 7.5-325] Omeprazole 40 mg PO DAILY 01/08/19 06/16/22 History Cetirizine HCl 10 mg PO DAILY 09/06/21 06/16/22 History Donepezil [Aricept] 5 mg PO HS 09/06/21 06/16/22 History Isosorbide Mononitrate ER [Imdur] 30 mg PO DAILY 09/06/21 06/16/22 History Sertraline HCl [Zoloft] 200 mg PO DAILY 09/06/21 06/16/22 History haloperidoL [Haloperidol] 2 mg PO DAILY 09/06/21 06/16/22 History traZODone HCL 150 mg PO HS 09/06/21 06/16/22 History Aspirin EC [Ecotrin Low Dose] 81 mg PO DAILY 05/03/22 06/16/22 History Atorvastatin Calcium [Lipitor] 40 mg PO DAILY 05/03/22 06/16/22 History Gabapentin [Neurontin] 400 mg PO TID 05/03/22 06/16/22 History Ezetimibe [Zetia] 10 mg PO DAILY #30 tab 05/14/22 06/16/22 Rx Verapamil Sr [Isoptin Sr] 120 mg PO DAILY #30 tab 05/14/22 06/16/22 Rx Albuterol Sulfate [Albuterol 1 puff INHALATION RT-Q4H PRN 05/23/22 06/16/22 History Sulfate Hfa] clonazePAM [KlonoPIN] 1 mg PO TID 05/23/22 06/16/22 History Furosemide [Lasix] 40 mg PO Q48H #30 tab 06/11/22 06/16/22 Rx metFORMIN HCL [Glucophage] 500 mg PO BID #60 tab 06/11/22 06/16/22 Rx predniSONE [Deltasone] 40 mg PO DAILY #100 tab 06/11/22 06/16/22 Rx Budesonide-Formot 160-4.5 Mcg 1 puff INHALATION RT-BID 06/16/22 06/16/22 History [Symbicort 160-4.5 Mcg Inhaler] Allergies Allergy/AdvReac Type Severity Reaction Status Date / Time No Known Allergies Allergy Verified 06/16/22 16:33 Physical Exam Vitals: Vital Signs Temp Pulse Pulse Resp BP Pulse Ox FiO2 06/23/22 08:50 112 H 06/23/22 08:29 116 H 06/23/22 08:24 92 L 40 06/23/22 08:00 97.6 F 110 H 20 98/62 87 L 40 06/23/22 04:20 92 L 40 06/23/22 03:09 98.0 F 124 H 21 124/77 90 L 40 06/23/22 00:45 40 06/22/22 23:30 98.2 F 108 H 22 112/68 90 L 40 06/22/22 20:59 85 06/22/22 20:50 83 40 06/22/22 20:00 98.3 F 76 116/78 96 40 06/22/22 16:00 98.6 F 81 20 103/61 93 L 40 06/22/22 15:46 80 06/22/22 15:38 93 L 40 06/22/22 15:33 82 06/22/22 12:15 84 06/22/22 12:08 40 06/22/22 12:03 82 06/22/22 12:00 98.0 F 93 20 113/58 88 L 40 Intake and Output 06/22/22 06/23/22 06/23/22 22:59 06:59 14:59 Intake Total 660 Output Total 250 300 Balance -250 -300 660 Intake: Oral 660 Output: Urine 250 300 Other: Voiding Method Urinal Urinal Urinal Results 06/23/22 08:15 06/23/22 08:15 CBC 06/23/22 Range/Units 08:15 WBC 7.1 (3.8-10.6) k/uL RBC 3.05 L (4.30-5.90) m/uL Hgb 9.1 L (13.0-17.5) gm/dL Hct 27.5 L (39.0-53.0) % Plt Count 143 L D (150-450) k/uL Comprehensive Metabolic Panel 06/23/22 Range/Units 08:15 Sodium 134 L (137-145) mmol/L Potassium 4.0 (3.5-5.1) mmol/L Chloride 90 L (98-107) mmol/L Carbon Dioxide 41 H* (22-30) mmol/L BUN 29 H (9-20) mg/dL Creatinine 0.71 (0.66-1.25) mg/dL Glucose 215 H (74-99) mg/dL Calcium 8.2 L (8.4-10.2) mg/dL Current Medications Generic Name Dose Route Start Last Admin Trade Name Freq PRN Reason Stop Dose Admin Hydrocodone Bitart/Acetaminophen 1 each 06/16/22 16:45 06/22/22 15:17 Hydrocodone/Apap 7.5-325mg 1 Each Tab PO 1 each TID PRN Administration Pain Albuterol Sulfate 2.5 mg 06/19/22 20:00 06/23/22 08:26 Albuterol Nebulized 2.5 Mg/3 Ml INHALATION 2.5 mg RT-QID MARYLOU Administration Albuterol Sulfate 2.5 mg 06/19/22 17:00 Albuterol Nebulized 2.5 Mg/3 Ml INHALATION RT-Q4H PRN Shortness Of Breath Or Wheezing Aspirin 81 mg 06/17/22 09:00 06/23/22 09:49 Aspirin 81 Mg PO 81 mg DAILY MARYLOU Administration Atorvastatin Calcium 40 mg 06/17/22 09:00 06/23/22 09:48 Atorvastatin 40 Mg Tab PO 40 mg DAILY MARYLOU Administration Budesonide/Formoterol Fumarate 1 puff 06/16/22 20:00 06/23/22 08:31 Symbicort 160-4.5 Mcg Inhaler INHALATION 1 puff RT-BID MARYLOU Administration Clonazepam 1 mg 06/16/22 22:00 06/23/22 09:49 Clonazepam 1 Mg Tab PO 1 mg TID MARYLOU Administration Donepezil HCl 5 mg 06/16/22 21:00 06/22/22 20:17 Donepezil 5 Mg Tab PO 5 mg HS MARYLOU Administration Ezetimibe 10 mg 06/17/22 09:00 06/23/22 09:48 Ezetimibe 10 Mg Tab PO 10 mg DAILY MARYLOU Administration Enoxaparin Sodium 30 mg 06/20/22 10:00 06/23/22 09:49 Enoxaparin 30 Mg/0.3 Ml Syringe SQ 30 mg DAILY MARYLOU Administration Furosemide 40 mg 06/22/22 09:00 06/23/22 09:48 Furosemide 40 Mg Tab PO 40 mg DAILY MARYLOU Administration Gabapentin 400 mg 06/16/22 22:00 06/23/22 09:48 Gabapentin 400 Mg Cap PO 400 mg TID MARYLOU Administration Haloperidol 2 mg 06/17/22 09:00 06/22/22 08:53 Haloperidol 2 Mg Tab PO 2 mg DAILY MARYLOU Administration Diltiazem HCl 125 mg/ Sodium 125 mls @ 10 mls/hr 06/23/22 03:00 06/23/22 03:15 Chloride IV 10 mg/hr .[id number] MARYLOU 10 mls/hr Administration 10 MG/HR Insulin Aspart 0 unit 06/16/22 21:00 06/23/22 06:24 Insulin Aspart (Novolog) 100 Unit/Ml Vial SQ 4 unit ACHS MARYLOU Administration Protocol Insulin Detemir 30 unit 06/22/22 21:00 06/22/22 20:17 Insulin Detemir (Levemir) 100 Unit/Ml Syr SQ 30 unit HS MARYLOU Administration Ipratropium Sulphur 0.5 mg 06/19/22 20:00 06/23/22 08:26 Ipratropium 0.5 Mg/2.5 Ml Nebu INHALATION 0.5 mg RT-QID MARYLOU Administration Isosorbide Mononitrate 30 mg 06/17/22 09:00 06/23/22 09:48 Isosorbide Mononitrate Er 30 Mg Tab.Er.24h PO 30 mg DAILY MARYLOU Administration Linagliptin 5 mg 06/16/22 20:30 06/23/22 09:48 Linagliptin 5 Mg Tablet PO 5 mg DAILY MARYLOU Administration Loratadine 10 mg 06/17/22 09:00 06/23/22 09:48 Loratadine 10 Mg Tab PO 10 mg DAILY MARYLOU Administration Metformin HCl 500 mg 06/16/22 21:00 06/23/22 09:49 Metformin 500 Mg Tab PO 500 mg BID MARYLOU Administration Methylprednisolone Sodium Succinate 60 mg 06/23/22 12:00 Methylprednisolone Sod Succi 125 Mg/2 Ml Vial IV Q6HR [facility] Miscellaneous Information 1 each 06/18/22 02:52 Potassium Replacement Protocol 1 Each Misc MISCELLANE DAILY PRN Per Protocol Protocol Naloxone HCl 0.2 mg 06/18/22 01:34 Naloxone 0.4 Mg/Ml 1 Ml Vial IV Q2M PRN Opioid Reversal Ondansetron HCl 4 mg 06/23/22 10:56 Ondansetron 4 Mg/2 Ml Vial IVP Q8HR PRN Nausea And Vomiting Pantoprazole Sodium 40 mg 06/17/22 09:00 06/23/22 09:49 Pantoprazole 40 Mg Tablet PO 40 mg DAILY MARYLOU Administration Sertraline HCl 200 mg 06/17/22 09:00 06/23/22 09:48 Sertraline 100 Mg Tab PO 200 mg DAILY MARYLOU Administration Trazodone HCl 150 mg 06/16/22 21:00 06/22/22 20:17 Trazodone Hcl 50 Mg Tab PO 150 mg HS MARYLOU Administration Verapamil HCl 120 mg 06/17/22 09:00 06/23/22 08:03 Verapamil Sr 120 Mg Tablet.Er PO Not Given DAILY MARYLOU Intake and Output 06/22/22 06/23/22 06/23/22 22:59 06:59 14:59 Intake Total 660 Output Total 250 300 Balance -250 -300 660 Intake: Oral 660 Output: Urine 250 300 Other: Voiding Method Urinal Urinal Urinal 06/23/22 08:15 06/23/22 08:15
[2022-06-23] MEDS: VERAPAMIL SR 180 MG TABLET.ER PO SCH (14:37)
[2022-06-23 16:48] LABS: Glucose,Whole Blood 270 mg/dL (70-110)
--- NOTE | 2022-06-23 17:22 | P.PN ---
Progress Note - Text Progress Note Date: 06/23/22 This is a 56-year-old patient, follows with Dr. Carson. Chronic stable medical conditions include GERD, hyperlipidemia, hypertension, seizure disorder, hypothyroid, obstructive sleep apnea not able to use CPAP, bipolar. Smoker- until April 2022. admitted from May 03 through May 142022: - bilateral pneumonia, COPD exacerbation. Received Zosyn. left the hospital - on 4 L of oxygen. now presented to hospital with increasing shortness of breath for last 3 days. Fever and chills. Congested cough. Clear sputum production. Appetite has been fair. Able to walk around some. Patient was placed on the BiPAP the ER. And eventually moved to the ICU. Sitting up in bed awake. Short of breath. Admitted to the hospital from May 24 through June 11. - bilateral pneumonia, acute hypoxic respiratory failure, COPD exacerbation. Had remained on AIRVO. Underwent lung biopsy. for chronic infiltrates. Was discharged on 5 L nasal cannula. Now admitted by my colleagues on the June 17 shortness of breath. Patient was in the garage trying to climb into the house 3 steps had taken his oxygen off and the car. He fell backwards hitting his head on the concrete floor. Did not pass out. [place] to have pneumonia. IV Zosyn. 06/19/2022: ICU. AIRVO. 60 L, 85%. Eating well. Had a bowel movement. Patient's daughter at the bedside. Slight cough. Short of breath. IV Zosyn. IV Solu-Medrol. Patient lung biopsy is come back showing: Organizing pneumonia with fibrotic features 06/20/2022: ICU. AIRVO. 55 L, 55%. Eating some. Reclining in bed. Short of breath. Discussed with Dr. Adler. DC IV Zosyn. Continue IV Solu-Medrol. Reminded about incentive spirometry. Will be moved out of the ICU. Increase Levemir for hyperglycemia. Cutback Lasix to 40 mg a day. 06/21/2022: ICU overflow. AIRVO 50/50. Short of breath. Eating. Had a bowel movement. Up in a recliner. On IV Solu-Medrol. 06/22/2022: AIRVO. Decreased to 50/40. Short of breath. Eating well. IV Solu-Medrol decreased yesterday to 60 mg every 6. 06/23/2022: AIRVO. 40/40. Dr. Adler increased IV Solu-Medrol to 60 mg every 6. Prostate patient went into atrial fibrillation with rapid ventricular rate. Was put on IV Cardizem drip. Later when back in sinus rhythm. This afternoon Cardizem discontinued. Verapamil SR 180 mg started. Eating well. Will be started on eliquis today Active Medications Hydrocodone Bitart/Acetaminophen (Hydrocodone/Apap 7.5-325mg 1 Each Tab) 1 each PO TID PRN PRN Reason: Pain Last Admin: 06/22/22 15:17 Dose: 1 each Albuterol Sulfate (Albuterol Nebulized 2.5 Mg/3 Ml) 2.5 mg INHALATION RT-QID [facility] Last Admin: 06/23/22 15:21 Dose: 2.5 mg Albuterol Sulfate (Albuterol Nebulized 2.5 Mg/3 Ml) 2.5 mg INHALATION RT-Q4H PRN PRN Reason: Shortness Of Breath Or Wheezing Apixaban (Apixaban 5 Mg Tab) 5 mg PO BID [facility]; Protocol Atorvastatin Calcium (Atorvastatin 40 Mg Tab) 40 mg PO DAILY [facility] Last Admin: 06/23/22 09:48 Dose: 40 mg Budesonide/Formoterol Fumarate (Symbicort 160-4.5 Mcg Inhaler) 1 puff INHALATION RT-BID [facility] Last Admin: 06/23/22 08:31 Dose: 1 puff Clonazepam (Clonazepam 1 Mg Tab) 1 mg PO TID [facility] Last Admin: 06/23/22 15:38 Dose: 1 mg Donepezil HCl (Donepezil 5 Mg Tab) 5 mg PO HS [facility] Last Admin: 06/22/22 20:17 Dose: 5 mg Ezetimibe (Ezetimibe 10 Mg Tab) 10 mg PO DAILY [facility] Last Admin: 06/23/22 09:48 Dose: 10 mg Furosemide (Furosemide 40 Mg Tab) 40 mg PO DAILY [facility] Last Admin: 06/23/22 09:48 Dose: 40 mg Gabapentin (Gabapentin 400 Mg Cap) 400 mg PO TID [facility] Last Admin: 06/23/22 15:38 Dose: 400 mg Haloperidol (Haloperidol 2 Mg Tab) 2 mg PO DAILY [facility] Last Admin: 06/23/22 11:56 Dose: 2 mg Insulin Aspart (Insulin Aspart (Novolog) 100 Unit/Ml Vial) 0 unit SQ ACHS [facility]; Protocol Last Admin: 06/23/22 17:02 Dose: 6 unit Insulin Detemir (Insulin Detemir (Levemir) 100 Unit/Ml Syr) 30 unit SQ [facility] Last Admin: 06/22/22 20:17 Dose: 30 unit Ipratropium [place] (Ipratropium 0.5 Mg/2.5 Ml Nebu) 0.5 mg INHALATION RT-QID [facility] Last Admin: 06/23/22 15:21 Dose: 0.5 mg Isosorbide Mononitrate (Isosorbide Mononitrate Er 30 Mg Tab.Er.24h) 30 mg PO DAILY [facility] Last Admin: 06/23/22 09:48 Dose: 30 mg Linagliptin (Linagliptin 5 Mg Tablet) 5 mg PO DAILY [facility] Last Admin: 06/23/22 09:48 Dose: 5 mg Loratadine (Loratadine 10 Mg Tab) 10 mg PO DAILY [facility] Last Admin: 06/23/22 09:48 Dose: 10 mg Metformin HCl (Metformin 500 Mg Tab) 500 mg PO BID [facility] Last Admin: 06/23/22 09:49 Dose: 500 mg Methylprednisolone Sodium Succinate (Methylprednisolone Sod Succi 125 Mg/2 Ml Vial) 60 mg IV Q6HR [facility] Last Admin: 06/23/22 17:02 Dose: 60 mg Miscellaneous Information (Potassium Replacement Protocol 1 Each Misc) 1 each MISCELLANE DAILY PRN; Protocol PRN Reason: Per Protocol Naloxone HCl (Naloxone 0.4 Mg/Ml 1 Ml Vial) 0.2 mg IV Q2M PRN PRN Reason: Opioid Reversal Ondansetron HCl (Ondansetron 4 Mg/2 Ml Vial) 4 mg IVP Q8HR PRN PRN Reason: Nausea And Vomiting Last Admin: 06/23/22 11:04 Dose: 4 mg Pantoprazole Sodium (Pantoprazole 40 Mg Tablet) 40 mg PO DAILY [facility] Last Admin: 06/23/22 09:49 Dose: 40 mg Sertraline HCl (Sertraline 100 Mg Tab) 200 mg PO DAILY [facility] Last Admin: 06/23/22 09:48 Dose: 200 mg Trazodone HCl (Trazodone Hcl 50 Mg Tab) 150 mg PO HS [facility] Last Admin: 06/22/22 20:17 Dose: 150 mg Verapamil HCl (Verapamil Sr 180 Mg Tablet.Er) 180 mg PO DAILY [facility] Last Admin: 06/23/22 14:37 Dose: 180 mg Past medical history to include: COPD, GERD, hypertension, hyperlipidemia, some cognitive impairment, seizure disorder, obstructive sleep apnea does not use CPAP, hypothyroid, LAP-BAND with reversal, bipolar Social history: Lives with ex-, Dottie. Smoked For 44 years stopped in April 2022 . 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 [employer]. Physical examination: VITAL SIGNS: 98.1, 82, 18, 113 with 75, 92% on AIRVO GENERAL:, Up in bed, short of breath EYES: Pupils equal. Conjunctiva normal. HEENT: External appearance of nose and ears normal, oral cavity grossly normal. NECK: JVD not raised; masses not palpable. HEART: First and second heart sounds are normal; no edema. LUNGS: Respiratory rate increased; decreased breath sounds , Basal fine crackles ABDOMEN: Soft, nontender, liver spleen not palpable, no masses palpable. PSYCH: Alert and oriented x3; mood and affect. Anxious. MUSCULOSKELETAL:No Clubbing/cyanosis;muscles-grossly intact INVESTIGATIONS, reviewed in the clinical context: 06/23/2022: White count 7 hemoglobin 9.1 platelets 143 potassium 4 creatinine 0.71 TSH 0.138, free T4 0.54 06/20/2022: White count 5.3 hemoglobin 8.2 platelets 89 potassium 4.0 bicarbonate 43 BUN 40 creatinine 0.85 06/19/2022: White count 6.4 hemoglobin 8.1 platelets 81 potassium 3.7 bicarb 43 BUN 34 creatinine 0.87 Chest x-ray: biLateral infiltrates 2-D echocardiogram: [April 2022] EF 55-60%. Moderate LVH. Lung biopsy: [06/08/2022]: Organizing pneumonia with some fibrotic features/cicatrix Assessment and plan: -No pneumonia. Stopped IV Zosyn. Discussed with Dr. 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 slow to respond IV Solu-Medrol. 60 mg every 6 -Acute hypoxic respiratory failure from pneumonia:: Slow to respond AIRVO. 40/40 -New onset paroxysmal atrial fibrillation rapid ventricular rate. Back in sinus rhythm.: New diagnosis Verapamil SR increased to 180 mg a day. Eliquis. Cardiology consulted. - chronic hypoxic respiratory failure from COPD/organizing pneumonia Home on 5 L of oxygen -Hyperlipidemia Lipitor 40 mg a day -Hyperglycemia secondary to steroids.: Metformin, Levemir increased to 38 units. Follow Accu-Cheks -Mild cognitive impairment Aricept -Metabolic alkalosis from diuresis Change Lasix to 40 mg every 48 hours -Acute COPD exacerbation in a previous smoker: DuoNeb, Symbicort IV Solu-Medrol -GERD PPI -Bipolar disorder Zoloft 200, Klonopin 0.5 mg 3 times a day, trazodone 150 mg daily at bedtime, Haldol -Essential hypertension Verapamil SR 120 milligrams a day -Full code IV Solu-Medrol 60 mg every 6. DuoNeb. Incentive spirometry. Increase Levemir to 38 units. Eliquis started. Verapamil SR 180 mg a day.
[2022-06-23 19:52] LABS: Glucose,Whole Blood 273 mg/dL (70-110)
[2022-06-23] MEDS: traZODone HCL 50 MG TAB PO SCH (20:33)
[2022-06-23] MEDS: INSULIN DETEMIR (LEVEMIR) 100 UNIT/ML SYR SQ SCH (20:33)
[2022-06-23] MEDS: DONEPEZIL 5 MG TAB PO SCH (20:33)
[2022-06-23] MEDS: APIXABAN 5 MG TAB PO SCH (20:33)
[2022-06-24] MEDS: methylPREDNISolone SOD SUCCI 125 MG/2 ML VIAL IV SCH ×4 (04:56→23:39)
[2022-06-24 06:01] LABS: Glucose,Whole Blood 201 mg/dL (70-110)
[2022-06-24] MEDS: INSULIN ASPART (NovoLOG) 100 UNIT/ML VIAL SQ SCH ×4 (06:05→19:59)
--- NOTE | 2022-06-24 07:43 | XR ---
EXAMINATION TYPE: XR chest 1V portable DATE OF EXAM: 06/24/2022 Comparison: 06/20/2022 Clinical History: 56-year-old male CHF, [employer] Findings: Heart is enlarged. Medium and coarse diffuse reticular and patchy opacities persist without significa nt change. Overall low lung volumes. Impression: Cardiomegaly, low lung volumes, and diffuse interstitial lung disease remains unchanged.
[2022-06-24] MEDS: ALBUTEROL NEBULIZED 2.5 MG/3 ML INHALATION SCH ×4 (08:11→21:04)
[2022-06-24] MEDS: IPRATROPIUM 0.5 MG/2.5 ML NEBU INHALATION SCH ×4 (08:11→21:05)
[2022-06-24] MEDS: SYMBICORT 160-4.5 MCG INHALER INHALATION SCH ×2 (08:12→21:04)
[2022-06-24] MEDS: PANTOPRAZOLE 40 MG TABLET PO SCH (08:34)
[2022-06-24] MEDS: EZETIMIBE 10 MG TAB PO SCH (08:34)
[2022-06-24] MEDS: VERAPAMIL SR 180 MG TABLET.ER PO SCH (08:34)
[2022-06-24] MEDS: GABAPENTIN 400 MG CAP PO SCH ×3 (08:34→19:58)
[2022-06-24] MEDS: LORATADINE 10 MG TAB PO SCH (08:34)
[2022-06-24] MEDS: ATORVASTATIN 40 MG TAB PO SCH (08:34)
[2022-06-24] MEDS: metFORMIN 500 MG TAB PO SCH ×2 (08:34→19:58)
[2022-06-24] MEDS: ISOSORBIDE MONONITRATE ER 30 MG TAB.ER.24H PO SCH (08:34)
[2022-06-24] MEDS: LINAGLIPTIN 5 MG TABLET PO SCH (08:35)
[2022-06-24] MEDS: APIXABAN 5 MG TAB PO SCH ×2 (08:35→19:59)
[2022-06-24] MEDS: clonazePAM 1 MG TAB PO SCH ×3 (08:35→19:59)
[2022-06-24] MEDS: HYDROcodone/APAP 7.5-325MG 1 EACH TAB PO PRN ×2 (08:35→20:03)
[2022-06-24] MEDS: SERTRALINE 100 MG TAB PO SCH (08:35)
[2022-06-24 11:31] LABS: Glucose,Whole Blood 176 mg/dL (70-110)
--- NOTE | 2022-06-24 12:52 | P.PN ---
Progress Note - Text Progress Note Date: 06/24/22 This is a 56-year-old patient, follows with Dr. Carson. Chronic stable medical conditions include GERD, hyperlipidemia, hypertension, seizure disorder, hypothyroid, obstructive sleep apnea not able to use CPAP, bipolar. Smoker- until April 2022. admitted from May 03 through May 142022: - bilateral pneumonia, COPD exacerbation. Received Zosyn. left the hospital - on 4 L of oxygen. now presented to hospital with increasing shortness of breath for last 3 days. Fever and chills. Congested cough. Clear sputum production. Appetite has been fair. Able to walk around some. Patient was placed on the BiPAP the ER. And eventually moved to the ICU. Sitting up in bed awake. Short of breath. Admitted to the hospital from May 24 through June 11. - bilateral pneumonia, acute hypoxic respiratory failure, COPD exacerbation. Had remained on AIRVO. Underwent lung biopsy. for chronic infiltrates. Was discharged on 5 L nasal cannula. Now admitted by my colleagues on the June 17 shortness of breath. Patient was in the garage trying to climb into the house 3 steps had taken his oxygen off and the car. He fell backwards hitting his head on the concrete floor. Did not pass out. Garita to have pneumonia. IV Zosyn. 06/19/2022: ICU. AIRVO. 60 L, 85%. Eating well. Had a bowel movement. Patient's daughter at the bedside. Slight cough. Short of breath. IV Zosyn. IV Solu-Medrol. Patient lung biopsy is come back showing: Organizing pneumonia with fibrotic features 06/20/2022: ICU. AIRVO. 55 L, 55%. Eating some. Reclining in bed. Short of breath. Discussed with Dr. Adler. DC IV Zosyn. Continue IV Solu-Medrol. Reminded about incentive spirometry. Will be moved out of the ICU. Increase Levemir for hyperglycemia. Cutback Lasix to 40 mg a day. 06/21/2022: ICU overflow. AIRVO 50/50. Short of breath. Eating. Had a bowel movement. Up in a recliner. On IV Solu-Medrol. 06/22/2022: AIRVO. Decreased to 50/40. Short of breath. Eating well. IV Solu-Medrol decreased yesterday to 60 mg every 6. 06/23/2022: AIRVO. 40/40. Dr. Adler increased IV Solu-Medrol to 60 mg every 6. Prostate patient went into atrial fibrillation with rapid ventricular rate. Was put on IV Cardizem drip. Later when back in sinus rhythm. This afternoon Cardizem discontinued. Verapamil SR 180 mg started. Eating well. Will be started on eliquis today 06/24/2022: AIRVO 35/35. IV submental 60 mg every 6. Eliquis. Remains in sinus rhythm. Up in a recliner. Discussed with patient. Will need DC to rehab Active Medications Hydrocodone Bitart/Acetaminophen (Hydrocodone/Apap 7.5-325mg 1 Each Tab) 1 each PO TID PRN PRN Reason: Pain Last Admin: 06/24/22 08:35 Dose: 1 each Albuterol Sulfate (Albuterol Nebulized 2.5 Mg/3 Ml) 2.5 mg INHALATION RT-QID [facility] Last Admin: 06/24/22 11:46 Dose: 2.5 mg Albuterol Sulfate (Albuterol Nebulized 2.5 Mg/3 Ml) 2.5 mg INHALATION RT-Q4H PRN PRN Reason: Shortness Of Breath Or Wheezing Apixaban (Apixaban 5 Mg Tab) 5 mg PO BID [facility]; Protocol Last Admin: 06/24/22 08:35 Dose: 5 mg Atorvastatin Calcium (Atorvastatin 40 Mg Tab) 40 mg PO DAILY [facility] Last Admin: 06/24/22 08:34 Dose: 40 mg Budesonide/Formoterol Fumarate (Symbicort 160-4.5 Mcg Inhaler) 1 puff INHALATION RT-BID [facility] Last Admin: 06/24/22 08:12 Dose: 1 puff Clonazepam (Clonazepam 1 Mg Tab) 1 mg PO TID [facility] Last Admin: 06/24/22 08:35 Dose: 1 mg Donepezil HCl (Donepezil 5 Mg Tab) 5 mg PO HS [facility] Last Admin: 06/23/22 20:33 Dose: 5 mg Ezetimibe (Ezetimibe 10 Mg Tab) 10 mg PO DAILY [facility] Last Admin: 06/24/22 08:34 Dose: 10 mg Furosemide (Furosemide 40 Mg Tab) 40 mg PO Q48H [facility] Gabapentin (Gabapentin 400 Mg Cap) 400 mg PO TID [facility] Last Admin: 06/24/22 08:34 Dose: 400 mg Haloperidol (Haloperidol 2 Mg Tab) 2 mg PO DAILY [facility] Last Admin: 06/24/22 08:34 Dose: 2 mg Insulin Aspart (Insulin Aspart (Novolog) 100 Unit/Ml Vial) 0 unit SQ ACHS [facility]; Protocol Last Admin: 06/24/22 12:28 Dose: 2 unit Insulin Detemir (Insulin Detemir (Levemir) 100 Unit/Ml Syr) 38 unit SQ HS [facility] Last Admin: 06/23/22 20:33 Dose: 38 unit Ipratropium [place] (Ipratropium 0.5 Mg/2.5 Ml Nebu) 0.5 mg INHALATION RT-QID [facility] Last Admin: 06/24/22 11:47 Dose: 0.5 mg Isosorbide Mononitrate (Isosorbide Mononitrate Er 30 Mg Tab.Er.24h) 30 mg PO DAILY [facility] Last Admin: 06/24/22 08:34 Dose: 30 mg Linagliptin (Linagliptin 5 Mg Tablet) 5 mg PO DAILY [facility] Last Admin: 06/24/22 08:35 Dose: 5 mg Loratadine (Loratadine 10 Mg Tab) 10 mg PO DAILY [facility] Last Admin: 06/24/22 08:34 Dose: 10 mg Metformin HCl (Metformin 500 Mg Tab) 500 mg PO BID [facility] Last Admin: 06/24/22 08:34 Dose: 500 mg Methylprednisolone Sodium Succinate (Methylprednisolone Sod Succi 125 Mg/2 Ml Vial) 60 mg IV Q6HR [facility] Last Admin: 06/24/22 12:29 Dose: 60 mg Miscellaneous Information (Potassium Replacement Protocol 1 Each Misc) 1 each MISCELLANE DAILY PRN; Protocol PRN Reason: Per Protocol Naloxone HCl (Naloxone 0.4 Mg/Ml 1 Ml Vial) 0.2 mg IV Q2M PRN PRN Reason: Opioid Reversal Ondansetron HCl (Ondansetron 4 Mg/2 Ml Vial) 4 mg IVP Q8HR PRN PRN Reason: Nausea And Vomiting Last Admin: 06/23/22 11:04 Dose: 4 mg Pantoprazole Sodium (Pantoprazole 40 Mg Tablet) 40 mg PO DAILY [facility] Last Admin: 06/24/22 08:34 Dose: 40 mg Sertraline HCl (Sertraline 100 Mg Tab) 200 mg PO DAILY [facility] Last Admin: 06/24/22 08:35 Dose: 200 mg Trazodone HCl (Trazodone Hcl 50 Mg Tab) 150 mg PO HS [facility] Last Admin: 06/23/22 20:33 Dose: 150 mg Verapamil HCl (Verapamil Sr 180 Mg Tablet.Er) 180 mg PO DAILY [facility] Last Admin: 06/24/22 08:34 Dose: 180 mg Past medical history to include: COPD, GERD, hypertension, hyperlipidemia, some cognitive impairment, seizure disorder, obstructive sleep apnea does not use CPAP, hypothyroid, LAP-BAND with reversal, bipolar Social history: Lives with ex-, Dtotie. Smoked For 44 years stopped in April 2022 . 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 Physical examination: VITAL SIGNS: 98.2, 84, 20, 101/59, 93% on AIRVO GENERAL:, Up in chair, short of breath EYES: Pupils equal. Conjunctiva normal. HEENT: External appearance of nose and ears normal, oral cavity grossly normal. NECK: JVD not raised; masses not palpable. HEART: First and second heart sounds are normal; no edema. LUNGS: Respiratory rate increased; decreased breath sounds , Basal fine crackles ABDOMEN: Soft, nontender, liver spleen not palpable, no masses palpable. PSYCH: Alert and oriented x3; mood and affect. Anxious. MUSCULOSKELETAL:No Clubbing/cyanosis;muscles-grossly intact INVESTIGATIONS, reviewed in the clinical context: 06/23/2022: White count 7 hemoglobin 9.1 platelets 143 potassium 4 creatinine 0.71 TSH 0.138, free T4 0.54 06/20/2022: White count 5.3 hemoglobin 8.2 platelets 89 potassium 4.0 bicarbonate 43 BUN 40 creatinine 0.85 06/19/2022: White count 6.4 hemoglobin 8.1 platelets 81 potassium 3.7 bicarb 43 BUN 34 creatinine 0.87 Chest x-ray: biLateral infiltrates 2-D echocardiogram: [April 2022] EF 55-60%. Moderate LVH. Lung biopsy: [06/08/2022]: Organizing pneumonia with some fibrotic features/cicatrix Assessment and plan: -No pneumonia. Stopped IV Zosyn. Discussed with Dr. 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 IV Solu-Medrol. 60 mg every 6 -Acute hypoxic respiratory failure from pneumonia:: AIRVO. 35/35 -New onset paroxysmal atrial fibrillation rapid ventricular rate. Back in sinus rhythm.: Verapamil SR 180 mg a day. Eliquis. Cardiology following - chronic hypoxic respiratory failure from COPD/organizing pneumonia Home on 5 L of oxygen -Hyperlipidemia Lipitor 40 mg a day -Hyperglycemia secondary to steroids.: Metformin, Levemir i 38 units. Follow Accu-Cheks -Mild cognitive impairment Aricept -Metabolic alkalosis from diuresis Change Lasix to 40 mg every 48 hours -Acute COPD exacerbation in a previous smoker: DuoNeb, Symbicort IV Solu-Medrol -GERD PPI -Bipolar disorder Zoloft 200, Klonopin 0.5 mg 3 times a day, trazodone 150 mg daily at bedtime, Haldol -Essential hypertension Verapamil SR 180 milligrams a day -Full code IV Solu-Medrol 60 mg every 6. DuoNeb. Incentive spirometry. Eliquis Verapamil SR 180 mg a day. Discussed with patient
--- NOTE | 2022-06-24 14:16 | P.PN ---
Subjective Progress Note Date: 06/24/22 Reevaluated today on 06/18/2022, patient remains in the ICU, still requiring high FiO2 of 70%, IPAP of 12 and EPAP of 6. Patient is comfortable on the BiPAP setting, O2 saturation is in the low 90s. Patient is not in distress. ABG on admission showed a pO2 of 115 pCO2 of 59 pH of 7.45 WBC count is 7.2 hemoglobin 7.6, baseline hemoglobin is 8.6 on his last discharge. Basic metabolic profile is normal except for bicarb of 40. Blood sugar is 248. Apparently the patient sustained a fall before he presented to the hospital, and he sustained significant area of ecchymosis over the right hip area and the right flank area today I recommended and x-ray of the right hip, there was no evidence of acute fracture or dislocation. Questionable femoral acetabular impingement. Patient has no problem in mobilizing the right hip area chest x-ray continues to show dense multifocal airspace opacities, much worse compared to his last chest x-ray upon discharge. Final pathology on his thoracoscopic lung biopsy is pending from the [facility]. Reevaluated today on 06/19/2022, patient remains in the ICU, he is presently on airvo, at 60 L flow with 83% FiO2, and O2 saturation is marginal done in the low 90s. Clinically the patient is about the same. That report from the [facility] just came back, and is basically consistent with cicatricial organizing pneumonia with mostly deposition of fibrous bands and loose granulation tissue/organizing pneumonia and this is basically a variant of cryptogenic organizing pneumonia. And shouldn't have a favorable response with the use of high doses of steroids. Actually the description made pathologically really fits into our patient's situation as we have noticed significant improvement with high-dose steroids on this patient on the past few admissions. It is definitely a steroids responsive process. And I believe the patient would have to be maintained on relatively high-dose of steroids even upon discharge, I would strongly recommend no less than 50 mg of 40 mg of prednisone daily maintenance for a while today's labs are unremarkable including a CBC and basic metabolic profile as well as renal profile. reevaluated today on 06/20/2022, patient is doing better, his FiO2 is down to 60% and flow down to 50%, chest x-ray is showing slight improvement. Patient remains on relatively high-dose of steroids. I will likely transfer the patient out of the ICU to a regular medical floor today. In the meantime we'll continue steroids, bronchodilators, and I will discontinue antibiotics. Now that I have a tissue diagnosis that matches the clinical diagnoses/steroids responsive interstitial lung disease. Reevaluated today on 06/21/2022, continues to gradually improve, he was on 55% FiO2 and 55 L flow with O2 sat from 96%, I cut him down to 50% FiO2 and 15 L flow kept his O2 saturation in the low 90s. Patient desaturates easily but recovers nicely with any activity. Remains on high-dose steroids, remains on bronchodilators, and I believe the patient could be transferred out of the ICU to a regular medical floor today. CBC is basically unremarkable. Basic metabolic profile is normal renal profile is normal bicarb is 43 The patient is seen today 06/22/2022 in follow-up on the selective care unit. He is currently sitting up at the bedside. Awake and alert in no acute distress. He is maintaining good O2 saturations in the 90s on AirVo for high flow oxygen at 50 L and 60% FiO2. He is continued on Symbicort, albuterol, IV Solu-Medrol. Lovenox for DVT prophylaxis. The patient's today 06/23/2022 in follow-up on the selective care unit. He is awake and alert in no acute distress. He remains on AirVo high flow oxygen currently at 40 L and 40% FiO2. He denies any worsening shortness of breath, cough or congestion. Feeling better each day. Continued on IV Solu-Medrol. Blood cultures reveal no growth. White count 7.0. Hemoglobin 9.1. Platelets 143. Sodium 134. Bicarb 41. BUN 29. Creatinine 0.71. Glucose 215. Lovenox for DVT prophylaxis per The patient is seen today 06/24/2022 in follow-up on the selective care unit. He is currently sitting up in a chair at the bedside. Awake and alert in no acute distress. Remains on AirVo high flow oxygen at 35 L and 55% FiO2. No worsening shortness of breath, cough or congestion. Chest x-ray continues to show cardiomegaly with low lung volumes and is diffuse interstitial lung disease. Remains unchanged. He is continued on IV solu Medrol 60 mg every 6 hours. Objective - Vital Signs Vital signs: Vital Signs Temp 98.2 F 06/24/22 12:00 Pulse 84 06/24/22 12:00 Resp 20 06/24/22 12:00 BP 101/59 06/24/22 12:00 Pulse Ox 93 L 06/24/22 12:00 FiO2 55 06/24/22 12:00 Intake & Output 06/23/22 06/24/22 06/24/22 18:59 06:59 18:59 Intake Total 900 540 180 Output Total 950 400 Balance -50 140 180 Intake: Oral 900 540 180 Output: Urine 950 400 Other: Voiding Method Urinal Urinal # Bowel Movements 1 - Exam GENERAL EXAM: Alert, 56-year-old male patient, on AirVo high flow oxygen at 35 L and 55% FiO2, comfortable in no apparent distress. HEAD: Normocephalic. EYES: Normal reaction of pupils, equal size. NOSE: Clear with pink turbinates. THROAT: No erythema or exudates. NECK: No masses, no JVD. CHEST: No chest wall deformity. LUNGS: Equal air entry with coarse crackles in posterior bases. CVS: S1 and S2 normal with no audible murmur, regular rhythm. ABDOMEN: No hepatosplenomegaly, normal bowel sounds, no guarding or rigidity. SPINE: No scoliosis or deformity SKIN: No rashes CENTRAL NERVOUS SYSTEM: No focal deficits, tone is normal in all 4 extremities. EXTREMITIES: There is no peripheral edema. No clubbing, no cyanosis. Peripheral pulses are intact. - Labs CBC & Chem 7: 06/23/22 08:15 06/23/22 08:15 Labs: Abnormal Lab Results - Last 24 Hours (Table) 06/23/22 06/23/22 06/24/22 Range/Units 16:44 19:51 06:00 POC Glucose (mg/dL) 270 H 273 H 201 H (70-110) mg/dL 06/24/22 Range/Units 11:29 POC Glucose (mg/dL) 176 H (70-110) mg/dL Microbiology - Last 24 Hours (Table) 06/17/22 08:09 Blood Culture - Final Blood No Growth after 144 hours Assessment and Plan Assessment: Acute on chronic hypoxic respiratory failure 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, steroids responsive Severe underlying COPD Coronary artery disease Mildly impaired systolic dysfunction with mild congestive heart failure Benign essential hypertension Schizophrenia Bipolar disorder Dyslipidemia Obstructive sleep apnea syndrome History of seizure disorder Plan: The patient was seen and evaluated Medications reviewed Remains on AirVo high flow oxygen at 35 L and 55% FiO2 Instructed RN/RT to keep O2 saturations between 88 and 93% Titrate down the FiO2 as tolerated Continue Solu-Medrol at 60 mg every 6 hours Lovenox for DVT prophylaxis We'll continue to follow I have personally seen and examined the patient, performed the documentation and the assessment and plan as written. Number of minutes spent on the visit: 10.
--- NOTE | 2022-06-24 15:35 | P.PN ---
Subjective Progress Note Date: 06/24/22 History of present illness: Patient is a pleasant 56-year-old male with significant past medical history of COPD, GERD, hypertension, hyperlipidemia, seizure disorder, diabetes, hypothyroid, obstructive sleep apnea, bipolar, former smoker quit 04/30 he was admitted 06/16/22 for respiratory distress. Cardiology was consulted for new onset atrial fibrillation with RVR overnight. He follows with Dr. Ayon in the office. It is questionable if he has had atrial fibrillation in the past. He reports that he couldn't feel his heart racing but had mild chest pain last night, denies any dizziness, shortness of breath is stable on high flow nasal cannula oxygen. He has had multiple admissions in the past 3 months for pneumonia, COPD exacerbation, respiratory failure. He had an echo 05/24/22 that showed an EF of 5560 percent. He had a heart catheterization 09/06/21 that showed calcified vessel with diffuse atherosclerotic plaque and a large dominant right coronary artery and a moderate area of stenosis in mid LAD. Hgb A1C is 8.4. 06/24 Patient sitting up, out of bed in chair. Denies any chest pain or palpitations. Shortness of breath is unchanged. Remains in sinus rhythm. PHYSICAL EXAMINATION: This is a 56 year-old male, mildly short of breath. HEENT: Head is atraumatic, normocephalic. Pupils are equal, round. Sclerae anicteric. Conjunctivae are clear. Mucous membranes of the mouth are moist. Neck is supple. There is no jugular venous distention. No carotid bruit is heard. CHEST EXAMINATION: Lungs are diminished, on high flow NC O2. No chest wall tenderness is noted on palpation or with deep breathing. HEART EXAMINATION: Heart regular rate and rhythm. S1, S2 heard. No murmurs, gallops or rub. ABDOMEN: Soft, nontender. Bowel sounds are heard. EXTREMITIES: 2+ peripheral pulses with no evidence of peripheral edema and no calf tenderness noted. NEUROLOGIC EXAMINATION: Patient is awake, alert and oriented x3. IMPRESSION AND PLAN: New onset atrial fibrillation with RVR, currently in sinus rhythm Hypertension Hyperlipidemia Respiratory distress COPD Diabetes PLAN: [id number] score is 3 for CAD, hypertension, and diabetes. Discussed plan of care with family at bedside. Continue with Eliquis 5mg po BID for stroke prevention and verapamil 180 mg daily. Cardiology to sign off. Follow up outpatient 1 week. Call with any questions. I am dictating on behalf of Dr. Mynor Anderson's history/physical and assessment/plan. Objective - Vital Signs Vital signs: Vital Signs Temp 98.2 F 06/24/22 12:00 Pulse 84 06/24/22 12:00 Resp 20 06/24/22 12:00 BP 101/59 06/24/22 12:00 Pulse Ox 93 L 06/24/22 12:00 FiO2 55 06/24/22 12:00 Intake & Output 06/23/22 06/24/22 06/24/22 18:59 06:59 18:59 Intake Total 900 540 180 Output Total 950 400 Balance -50 140 180 Intake: Oral 900 540 180 Output: Urine 950 400 Other: Voiding Method Urinal Urinal # Bowel Movements 1 - Labs CBC & Chem 7: 06/23/22 08:15 06/23/22 08:15 Labs: Abnormal Lab Results - Last 24 Hours (Table) 06/23/22 06/23/22 06/24/22 Range/Units 16:44 19:51 06:00 POC Glucose (mg/dL) 270 H 273 H 201 H (70-110) mg/dL 06/24/22 Range/Units 11:29 POC Glucose (mg/dL) 176 H (70-110) mg/dL Microbiology - Last 24 Hours (Table) 06/17/22 08:09 Blood Culture - Final Blood No Growth after 144 hours
[2022-06-24 16:54] LABS: Glucose,Whole Blood 262 mg/dL (70-110)
[2022-06-24 19:51] LABS: Glucose,Whole Blood 297 mg/dL (70-110)
[2022-06-24] MEDS: INSULIN DETEMIR (LEVEMIR) 100 UNIT/ML SYR SQ SCH (19:58)
[2022-06-24] MEDS: DONEPEZIL 5 MG TAB PO SCH (19:58)
[2022-06-24] MEDS: traZODone HCL 50 MG TAB PO SCH (19:59)
[2022-06-25] MEDS: methylPREDNISolone SOD SUCCI 125 MG/2 ML VIAL IV SCH ×4 (06:03→23:26)
[2022-06-25 06:34] LABS: Glucose,Whole Blood 208 mg/dL (70-110)
[2022-06-25] MEDS: INSULIN ASPART (NovoLOG) 100 UNIT/ML VIAL SQ SCH ×4 (06:37→20:20)
[2022-06-25] MEDS: ALBUTEROL NEBULIZED 2.5 MG/3 ML INHALATION SCH ×4 (08:39→21:33)
[2022-06-25] MEDS: SYMBICORT 160-4.5 MCG INHALER INHALATION SCH ×2 (08:39→21:33)
[2022-06-25] MEDS: IPRATROPIUM 0.5 MG/2.5 ML NEBU INHALATION SCH ×4 (08:40→21:33)
[2022-06-25] MEDS: FUROSEMIDE 40 MG TAB PO SCH (08:48)
[2022-06-25] MEDS: HYDROcodone/APAP 7.5-325MG 1 EACH TAB PO PRN ×2 (08:48→15:16)
[2022-06-25] MEDS: VERAPAMIL SR 180 MG TABLET.ER PO SCH (08:48)
[2022-06-25] MEDS: metFORMIN 500 MG TAB PO SCH ×2 (08:49→20:20)
[2022-06-25] MEDS: ATORVASTATIN 40 MG TAB PO SCH (08:49)
[2022-06-25] MEDS: SERTRALINE 100 MG TAB PO SCH (08:50)
[2022-06-25] MEDS: EZETIMIBE 10 MG TAB PO SCH (08:50)
[2022-06-25] MEDS: clonazePAM 1 MG TAB PO SCH ×3 (08:50→20:20)
[2022-06-25] MEDS: LORATADINE 10 MG TAB PO SCH (08:50)
[2022-06-25] MEDS: ISOSORBIDE MONONITRATE ER 30 MG TAB.ER.24H PO SCH (08:50)
[2022-06-25] MEDS: APIXABAN 5 MG TAB PO SCH ×2 (08:50→20:20)
[2022-06-25] MEDS: GABAPENTIN 400 MG CAP PO SCH ×3 (08:50→20:20)
[2022-06-25] MEDS: PANTOPRAZOLE 40 MG TABLET PO SCH (08:50)
[2022-06-25] MEDS: LINAGLIPTIN 5 MG TABLET PO SCH (08:50)
[2022-06-25 11:44] LABS: Glucose,Whole Blood 212 mg/dL (70-110)
--- NOTE | 2022-06-25 15:47 | P.PN ---
Subjective Progress Note Date: 06/25/22 Reevaluated today on 06/18/2022, patient remains in the ICU, still requiring high FiO2 of 70%, IPAP of 12 and EPAP of 6. Patient is comfortable on the BiPAP setting, O2 saturation is in the low 90s. Patient is not in distress. ABG on admission showed a pO2 of 115 pCO2 of 59 pH of 7.45 WBC count is 7.2 hemoglobin 7.6, baseline hemoglobin is 8.6 on his last discharge. Basic metabolic profile is normal except for bicarb of 40. Blood sugar is 248. Apparently the patient sustained a fall before he presented to the hospital, and he sustained significant area of ecchymosis over the right hip area and the right flank area today I recommended and x-ray of the right hip, there was no evidence of acute fracture or dislocation. Questionable femoral acetabular impingement. Patient has no problem in mobilizing the right hip area chest x-ray continues to show dense multifocal airspace opacities, much worse compared to his last chest x-ray upon discharge. Final pathology on his thoracoscopic lung biopsy is pending from the [facility]. Reevaluated today on 06/19/2022, patient remains in the ICU, he is presently on airvo, at 60 L flow with 83% FiO2, and O2 saturation is marginal done in the low 90s. Clinically the patient is about the same. That report from the [facility] just came back, and is basically consistent with cicatricial organizing pneumonia with mostly deposition of fibrous bands and loose granulation tissue/organizing pneumonia and this is basically a variant of cryptogenic organizing pneumonia. And shouldn't have a favorable response with the use of high doses of steroids. Actually the description made pathologically really fits into our patient's situation as we have noticed significant improvement with high-dose steroids on this patient on the past few admissions. It is definitely a steroids responsive process. And I believe the patient would have to be maintained on relatively high-dose of steroids even upon discharge, I would strongly recommend no less than 50 mg of 40 mg of prednisone daily maintenance for a while today's labs are unremarkable including a CBC and basic metabolic profile as well as renal profile. reevaluated today on 06/20/2022, patient is doing better, his FiO2 is down to 60% and flow down to 50%, chest x-ray is showing slight improvement. Patient remains on relatively high-dose of steroids. I will likely transfer the patient out of the ICU to a regular medical floor today. In the meantime we'll continue steroids, bronchodilators, and I will discontinue antibiotics. Now that I have a tissue diagnosis that matches the clinical diagnoses/steroids responsive interstitial lung disease. Reevaluated today on 06/21/2022, continues to gradually improve, he was on 55% FiO2 and 55 L flow with O2 sat from 96%, I cut him down to 50% FiO2 and 15 L flow kept his O2 saturation in the low 90s. Patient desaturates easily but recovers nicely with any activity. Remains on high-dose steroids, remains on bronchodilators, and I believe the patient could be transferred out of the ICU to a regular medical floor today. CBC is basically unremarkable. Basic metabolic profile is normal renal profile is normal bicarb is 43 The patient is seen today 06/22/2022 in follow-up on the selective care unit. He is currently sitting up at the bedside. Awake and alert in no acute distress. He is maintaining good O2 saturations in the 90s on AirVo for high flow oxygen at 50 L and 60% FiO2. He is continued on Symbicort, albuterol, IV Solu-Medrol. Lovenox for DVT prophylaxis. The patient's today 06/23/2022 in follow-up on the selective care unit. He is awake and alert in no acute distress. He remains on AirVo high flow oxygen currently at 40 L and 40% FiO2. He denies any worsening shortness of breath, cough or congestion. Feeling better each day. Continued on IV Solu-Medrol. Blood cultures reveal no growth. White count 7.0. Hemoglobin 9.1. Platelets 143. Sodium 134. Bicarb 41. BUN 29. Creatinine 0.71. Glucose 215. Lovenox for DVT prophylaxis per The patient is seen today 06/24/2022 in follow-up on the selective care unit. He is currently sitting up in a chair at the bedside. Awake and alert in no acute distress. Remains on AirVo high flow oxygen at 35 L and 55% FiO2. No worsening shortness of breath, cough or congestion. Chest x-ray continues to show cardiomegaly with low lung volumes and is diffuse interstitial lung disease. Remains unchanged. He is continued on IV solu Medrol 60 mg every 6 hours. The patient is seen today 06/25/2022 in follow-up on the selective care unit. He is currently sitting up in a chair at the bedside. Awake and alert in no acute distress. Remains on AirVo high flow oxygen at 35 L and 45% FiO2. No worsening shortness of breath, cough or congestion. No IV fluids. He remains on IV Solu-Medrol. Continued on bronchodilators. Remains on oral diuretics. Objective - Vital Signs Vital signs: Vital Signs Temp 97.5 F L 06/25/22 08:45 Pulse 72 06/25/22 13:04 Resp 20 06/25/22 14:00 BP 109/71 06/25/22 11:08 Pulse Ox 96 06/25/22 14:00 FiO2 45 06/25/22 12:03 Intake & Output 06/24/22 06/25/22 06/25/22 18:59 06:59 18:59 Intake Total 810 540 236 Output Total 325 250 800 Balance 485 290 -564 Intake: Oral 810 540 236 Output: Urine 325 250 800 Other: Voiding Method Urinal Urinal # Voids 1 # Bowel Movements 1 - Exam GENERAL EXAM: Alert, 56-year-old male, on AirVo high flow oxygen at 35 L and 45% FiO2, comfortable in no apparent distress. HEAD: Normocephalic. EYES: Normal reaction of pupils, equal size. NOSE: Clear with pink turbinates. THROAT: No erythema or exudates. NECK: No masses, no JVD. CHEST: No chest wall deformity. LUNGS: Equal air entry with coarse crackles in posterior bases. CVS: S1 and S2 normal with no audible murmur, regular rhythm. ABDOMEN: No hepatosplenomegaly, normal bowel sounds, no guarding or rigidity. SPINE: No scoliosis or deformity SKIN: No rashes CENTRAL NERVOUS SYSTEM: No focal deficits, tone is normal in all 4 extremities. EXTREMITIES: There is no peripheral edema. No clubbing, no cyanosis. Peripheral pulses are intact. 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, steroids responsive Severe underlying COPD Coronary artery disease Mildly impaired systolic dysfunction with mild congestive heart failure Benign essential hypertension Schizophrenia Bipolar disorder Dyslipidemia Obstructive sleep apnea syndrome History of seizure disorder Plan: The patient was seen and evaluated Medications reviewed Remains on AirVo high flow oxygen at 35 L and 45% FiO2 We will try to switch over to regular high flow oxygen Titrate down the FiO2 as tolerated Acceptable of 88% FiO2 and higher Continue Solu-Medrol at 60 mg every 6 hours Lovenox for DVT prophylaxis We'll continue to follow I have personally seen and examined the patient, performed the documentation and the assessment and plan as written. Number of minutes spent on the visit: 10.
[2022-06-25 16:22] LABS: Glucose,Whole Blood 324 mg/dL (70-110)
--- NOTE | 2022-06-25 16:55 | P.PN ---
Progress Note - Text Progress Note Date: 06/25/22 This is a 56-year-old patient, follows with Dr. Carson. Chronic stable medical conditions include GERD, hyperlipidemia, hypertension, seizure disorder, hypothyroid, obstructive sleep apnea not able to use CPAP, bipolar. Smoker- until April 2022. admitted from May 03 through May 142022: - bilateral pneumonia, COPD exacerbation. Received Zosyn. left the hospital - on 4 L of oxygen. now presented to hospital with increasing shortness of breath for last 3 days. Fever and chills. Congested cough. Clear sputum production. Appetite has been fair. Able to walk around some. Patient was placed on the BiPAP the ER. And eventually moved to the ICU. Sitting up in bed awake. Short of breath. Admitted to the hospital from May 24 through June 11. - bilateral pneumonia, acute hypoxic respiratory failure, COPD exacerbation. Had remained on AIRVO. Underwent lung biopsy. for chronic infiltrates. Was discharged on 5 L nasal cannula. Now admitted by my colleagues on the June 17 shortness of breath. Patient was in the garage trying to climb into the house 3 steps had taken his oxygen off and the car. He fell backwards hitting his head on the concrete floor. Did not pass out. Wallace to have pneumonia. IV Zosyn. 06/19/2022: ICU. AIRVO. 60 L, 85%. Eating well. Had a bowel movement. Patient's daughter at the bedside. Slight cough. Short of breath. IV Zosyn. IV Solu-Medrol. Patient lung biopsy is come back showing: Organizing pneumonia with fibrotic features 06/20/2022: ICU. AIRVO. 55 L, 55%. Eating some. Reclining in bed. Short of breath. Discussed with Dr. Adler. DC IV Zosyn. Continue IV Solu-Medrol. Reminded about incentive spirometry. Will be moved out of the ICU. Increase Levemir for hyperglycemia. Cutback Lasix to 40 mg a day. 06/21/2022: ICU overflow. AIRVO 50/50. Short of breath. Eating. Had a bowel movement. Up in a recliner. On IV Solu-Medrol. 06/22/2022: AIRVO. Decreased to 50/40. Short of breath. Eating well. IV Solu-Medrol decreased yesterday to 60 mg every 6. 06/23/2022: AIRVO. 40/40. Dr. Adler increased IV Solu-Medrol to 60 mg every 6. Prostate patient went into atrial fibrillation with rapid ventricular rate. Was put on IV Cardizem drip. Later when back in sinus rhythm. This afternoon Cardizem discontinued. Verapamil SR 180 mg started. Eating well. Will be started on eliquis today 06/24/2022: AIRVO 35/35. IV Solu-Medrol 60 mg every 6. Eliquis. Remains in sinus rhythm. Up in a recliner. Discussed with patient. Will need DC to rehab 06/25/2022: Up in a chair. Changed over to high flow nasal cannula 8 L. IV Solu-Medrol 60 mg every 6. Eating well. Active Medications Hydrocodone Bitart/Acetaminophen (Hydrocodone/Apap 7.5-325mg 1 Each Tab) 1 each PO TID PRN PRN Reason: Pain Last Admin: 06/25/22 15:16 Dose: 1 each Albuterol Sulfate (Albuterol Nebulized 2.5 Mg/3 Ml) 2.5 mg INHALATION RT-QID [facility] Last Admin: 06/25/22 15:40 Dose: 2.5 mg Albuterol Sulfate (Albuterol Nebulized 2.5 Mg/3 Ml) 2.5 mg INHALATION RT-Q4H PRN PRN Reason: Shortness Of Breath Or Wheezing Apixaban (Apixaban 5 Mg Tab) 5 mg PO BID [facility]; Protocol Last Admin: 06/25/22 08:50 Dose: 5 mg Atorvastatin Calcium (Atorvastatin 40 Mg Tab) 40 mg PO DAILY [facility] Last Admin: 06/25/22 08:49 Dose: 40 mg Budesonide/Formoterol Fumarate (Symbicort 160-4.5 Mcg Inhaler) 1 puff INHALATION RT-BID [facility] Last Admin: 06/25/22 08:39 Dose: 1 puff Clonazepam (Clonazepam 1 Mg Tab) 1 mg PO TID [facility] Last Admin: 06/25/22 15:16 Dose: 1 mg Donepezil HCl (Donepezil 5 Mg Tab) 5 mg PO HS [facility] Last Admin: 06/24/22 19:58 Dose: 5 mg Ezetimibe (Ezetimibe 10 Mg Tab) 10 mg PO DAILY [facility] Last Admin: 06/25/22 08:50 Dose: 10 mg Furosemide (Furosemide 40 Mg Tab) 40 mg PO Q48H [facility] Last Admin: 06/25/22 08:48 Dose: 40 mg Gabapentin (Gabapentin 400 Mg Cap) 400 mg PO TID [facility] Last Admin: 06/25/22 15:16 Dose: 400 mg Haloperidol (Haloperidol 2 Mg Tab) 2 mg PO DAILY [facility] Last Admin: 06/25/22 08:48 Dose: 2 mg Insulin Aspart (Insulin Aspart (Novolog) 100 Unit/Ml Vial) 0 unit SQ ACHS [facility]; Protocol Last Admin: 06/25/22 16:52 Dose: 8 unit Insulin Detemir (Insulin Detemir (Levemir) 100 Unit/Ml Syr) 38 unit SQ HS [facility] Last Admin: 06/24/22 19:58 Dose: 38 unit Ipratropium [place] (Ipratropium 0.5 Mg/2.5 Ml Nebu) 0.5 mg INHALATION RT-QID [facility] Last Admin: 06/25/22 15:40 Dose: 0.5 mg Isosorbide Mononitrate (Isosorbide Mononitrate Er 30 Mg Tab.Er.24h) 30 mg PO DAILY [facility] Last Admin: 06/25/22 08:50 Dose: 30 mg Linagliptin (Linagliptin 5 Mg Tablet) 5 mg PO DAILY [facility] Last Admin: 06/25/22 08:50 Dose: 5 mg Loratadine (Loratadine 10 Mg Tab) 10 mg PO DAILY [facility] Last Admin: 06/25/22 08:50 Dose: 10 mg Metformin HCl (Metformin 500 Mg Tab) 500 mg PO BID [facility] Last Admin: 06/25/22 08:49 Dose: 500 mg Methylprednisolone Sodium Succinate (Methylprednisolone Sod Succi 125 Mg/2 Ml Vial) 60 mg IV Q6HR [facility] Last Admin: 06/25/22 16:52 Dose: 60 mg Miscellaneous Information (Potassium Replacement Protocol 1 Each Misc) 1 each MISCELLANE DAILY PRN; Protocol PRN Reason: Per Protocol Naloxone HCl (Naloxone 0.4 Mg/Ml 1 Ml Vial) 0.2 mg IV Q2M PRN PRN Reason: Opioid Reversal Ondansetron HCl (Ondansetron 4 Mg/2 Ml Vial) 4 mg IVP Q8HR PRN PRN Reason: Nausea And Vomiting Last Admin: 06/23/22 11:04 Dose: 4 mg Pantoprazole Sodium (Pantoprazole 40 Mg Tablet) 40 mg PO DAILY [facility] Last Admin: 06/25/22 08:50 Dose: 40 mg Sertraline HCl (Sertraline 100 Mg Tab) 200 mg PO DAILY [facility] Last Admin: 06/25/22 08:50 Dose: 200 mg Trazodone HCl (Trazodone Hcl 50 Mg Tab) 150 mg PO HS [facility] Last Admin: 06/24/22 19:59 Dose: 150 mg Verapamil HCl (Verapamil Sr 180 Mg Tablet.Er) 180 mg PO DAILY [facility] Last Admin: 06/25/22 08:48 Dose: 180 mg Past medical history to include: COPD, GERD, hypertension, hyperlipidemia, some cognitive impairment, seizure disorder, obstructive sleep apnea does not use CPAP, hypothyroid, LAP-BAND with reversal, bipolar Social history: Lives with ex-, Dottie. Smoked For 44 years stopped in April 2022 . 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 Physical examination: VITAL SIGNS: 98.3, 78, 20, 105/66, 95% on 8 L GENERAL:, Up in chair, short of breath EYES: Pupils equal. Conjunctiva normal. HEENT: External appearance of nose and ears normal, oral cavity grossly normal. NECK: JVD not raised; masses not palpable. HEART: First and second heart sounds are normal; no edema. LUNGS: Respiratory rate increased; decreased breath sounds , Basal fine crackles ABDOMEN: Soft, nontender, liver spleen not palpable, no masses palpable. PSYCH: Alert and oriented x3; mood and affect. Anxious. MUSCULOSKELETAL:No Clubbing/cyanosis;muscles-grossly intact INVESTIGATIONS, reviewed in the clinical context: 06/23/2022: White count 7 hemoglobin 9.1 platelets 143 potassium 4 creatinine 0.71 TSH 0.138, free T4 0.54 06/20/2022: White count 5.3 hemoglobin 8.2 platelets 89 potassium 4.0 bicarbonate 43 BUN 40 creatinine 0.85 06/19/2022: White count 6.4 hemoglobin 8.1 platelets 81 potassium 3.7 bicarb 43 BUN 34 creatinine 0.87 Chest x-ray: biLateral infiltrates 2-D echocardiogram: [April 2022] EF 55-60%. Moderate LVH. Lung biopsy: [06/08/2022]: Organizing pneumonia with some fibrotic features/cicatrix Assessment and plan: -No pneumonia. Stopped IV Zosyn. Discussed with Dr. 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 IV Solu-Medrol. 60 mg every 6 -Acute hypoxic respiratory failure from pneumonia:: AIRVO. 8 L high flow oxygen -New onset paroxysmal atrial fibrillation rapid ventricular rate. Back in sinus rhythm.: Verapamil SR 180 mg a day. Eliquis. Cardiology following - chronic hypoxic respiratory failure from COPD/organizing pneumonia Home on 5 L of oxygen -Hyperlipidemia Lipitor 40 mg a day -Hyperglycemia secondary to steroids.: Metformin, Levemir i 38 units. Follow Accu-Cheks -Mild cognitive impairment Aricept -Metabolic alkalosis from diuresis Change Lasix to 40 mg every 48 hours -Acute COPD exacerbation in a previous smoker: DuoNeb, Symbicort IV Solu-Medrol -GERD PPI -Bipolar disorder Zoloft 200, Klonopin 0.5 mg 3 times a day, trazodone 150 mg daily at bedtime, Haldol -Essential hypertension Verapamil SR 180 milligrams a day -Full code IV Solu-Medrol 60 mg every 6. DuoNeb. Incentive spirometry. Eliquis Verapamil SR 180 mg a day. Discussed with patient
[2022-06-25 20:16] LABS: Glucose,Whole Blood 338 mg/dL (70-110)
[2022-06-25] MEDS: DONEPEZIL 5 MG TAB PO SCH (20:20)
[2022-06-25] MEDS: INSULIN DETEMIR (LEVEMIR) 100 UNIT/ML SYR SQ SCH (20:20)
[2022-06-25] MEDS: traZODone HCL 50 MG TAB PO SCH (20:20)
[2022-06-26 05:59] LABS: Glucose,Whole Blood 190 mg/dL (70-110)
[2022-06-26] MEDS: methylPREDNISolone SOD SUCCI 125 MG/2 ML VIAL IV SCH ×4 (06:48→23:46)
[2022-06-26] MEDS: INSULIN ASPART (NovoLOG) 100 UNIT/ML VIAL SQ SCH ×4 (06:48→20:31)
[2022-06-26] MEDS: metFORMIN 500 MG TAB PO SCH ×2 (07:36→20:32)
[2022-06-26] MEDS: SERTRALINE 100 MG TAB PO SCH (07:36)
[2022-06-26] MEDS: HYDROcodone/APAP 7.5-325MG 1 EACH TAB PO PRN ×2 (07:36→20:32)
[2022-06-26] MEDS: PANTOPRAZOLE 40 MG TABLET PO SCH (07:37)
[2022-06-26] MEDS: EZETIMIBE 10 MG TAB PO SCH (07:37)
[2022-06-26] MEDS: LORATADINE 10 MG TAB PO SCH (07:37)
[2022-06-26] MEDS: clonazePAM 1 MG TAB PO SCH ×3 (07:37→20:31)
[2022-06-26] MEDS: LINAGLIPTIN 5 MG TABLET PO SCH (07:37)
[2022-06-26] MEDS: ISOSORBIDE MONONITRATE ER 30 MG TAB.ER.24H PO SCH (07:37)
[2022-06-26] MEDS: ATORVASTATIN 40 MG TAB PO SCH (07:37)
[2022-06-26] MEDS: APIXABAN 5 MG TAB PO SCH ×2 (07:37→20:32)
[2022-06-26] MEDS: GABAPENTIN 400 MG CAP PO SCH ×3 (07:37→20:32)
[2022-06-26] MEDS: VERAPAMIL SR 180 MG TABLET.ER PO SCH (07:37)
[2022-06-26] MEDS: ALBUTEROL NEBULIZED 2.5 MG/3 ML INHALATION SCH ×4 (08:28→19:54)
[2022-06-26] MEDS: SYMBICORT 160-4.5 MCG INHALER INHALATION SCH ×2 (08:28→19:54)
[2022-06-26] MEDS: IPRATROPIUM 0.5 MG/2.5 ML NEBU INHALATION SCH ×4 (08:28→19:55)
[2022-06-26 11:29] LABS: Glucose,Whole Blood 147 mg/dL (70-110)
--- NOTE | 2022-06-26 14:12 | P.PN ---
Subjective Progress Note Date: 06/26/22 Principal diagnosis: Shortness of breath. Reevaluated today on 06/19/2022, patient remains in the ICU, he is presently on airvo, at 60 L flow with 83% FiO2, and O2 saturation is marginal done in the low 90s. Clinically the patient is about the same. That report from the [facility] just came back, and is basically consistent with cicatricial organizing pneumonia with mostly deposition of fibrous bands and loose granulation tissue/organizing pneumonia and this is basically a variant of cryptogenic organizing pneumonia. And shouldn't have a favorable response with the use of high doses of steroids. Actually the description made pathologically really fits into our patient's situation as we have noticed significant improvement with high-dose steroids on this patient on the past few admissions. It is definitely a steroids responsive process. And I believe the patient would have to be maintained on relatively high-dose of steroids even upon discharge, I would strongly recommend no less than 50 mg of 40 mg of prednisone daily maintenance for a while today's labs are unremarkable including a CBC and basic metabolic profile as well as renal profile. reevaluated today on 06/20/2022, patient is doing better, his FiO2 is down to 60% and flow down to 50%, chest x-ray is showing slight improvement. Patient remains on relatively high-dose of steroids. I will likely transfer the patient out of the ICU to a regular medical floor today. In the meantime we'll continue steroids, bronchodilators, and I will discontinue antibiotics. Now that I have a tissue diagnosis that matches the clinical diagnoses/steroids responsive interstitial lung disease. Reevaluated today on 06/21/2022, continues to gradually improve, he was on 55% FiO2 and 55 L flow with O2 sat from 96%, I cut him down to 50% FiO2 and 15 L flow kept his O2 saturation in the low 90s. Patient desaturates easily but recovers nicely with any activity. Remains on high-dose steroids, remains on bronchodilators, and I believe the patient could be transferred out of the ICU to a regular medical floor today. CBC is basically unremarkable. Basic metabolic profile is normal renal profile is normal bicarb is 43 The patient is seen today 06/22/2022 in follow-up on the selective care unit. He is currently sitting up at the bedside. Awake and alert in no acute distress. He is maintaining good O2 saturations in the 90s on AirVo for high flow oxygen at 50 L and 60% FiO2. He is continued on Symbicort, albuterol, IV Solu-Medrol. Lovenox for DVT prophylaxis. The patient's today 06/23/2022 in follow-up on the selective care unit. He is awake and alert in no acute distress. He remains on AirVo high flow oxygen currently at 40 L and 40% FiO2. He denies any worsening shortness of breath, cough or congestion. Feeling better each day. Continued on IV Solu-Medrol. Blood cultures reveal no growth. White count 7.0. Hemoglobin 9.1. Platelets 143. Sodium 134. Bicarb 41. BUN 29. Creatinine 0.71. Glucose 215. Lovenox for DVT prophylaxis per The patient is seen today 06/24/2022 in follow-up on the selective care unit. He is currently sitting up in a chair at the bedside. Awake and alert in no acute distress. Remains on AirVo high flow oxygen at 35 L and 55% FiO2. No worsening shortness of breath, cough or congestion. Chest x-ray continues to show cardiomegaly with low lung volumes and is diffuse interstitial lung disease. Remains unchanged. He is continued on IV solu Medrol 60 mg every 6 hours. The patient is seen today 06/25/2022 in follow-up on the selective care unit. He is currently sitting up in a chair at the bedside. Awake and alert in no acu te distress. Remains on AirVo high flow oxygen at 35 L and 45% FiO2. No worsening shortness of breath, cough or congestion. No IV fluids. He remains on IV Solu-Medrol. Continued on bronchodilators. Remains on oral diuretics. Progress note dated 06/26/2022. The patient is seen today in room 365. The patient has been weaned down to 8 L high flow oxygen. He is not receiving any IV fluids. His breathing seems very stable. He denies any specific complaints. Yesterday, he was on AIRVO. No new labs today other than a glucose of 147. Objective - Vital Signs Vital signs: Vital Signs Temp 98.0 F 06/26/22 07:32 Pulse 76 06/26/22 13:14 Resp 22 06/26/22 11:47 BP 103/67 06/26/22 11:47 Pulse Ox 92 L 06/26/22 11:47 FiO2 45 06/25/22 12:03 Intake & Output 06/25/22 06/26/22 06/26/22 18:59 06:59 18:59 Intake Total 354 298 Output Total 1715 200 400 Balance -1361 -200 -102 Intake: Oral 354 298 Output: Urine 1715 200 400 Other: Voiding Method Urinal Urinal Urinal # Bowel Movements 1 - Exam No acute distress, oriented 3. No respiratory distress. HEENT examination is grossly unremarkable. Neck supple. Full range of motion. No adenopathy thyromegaly or neck vein distention. Cardiovascular examination reveals regular rhythm rate. S1-S2 normal. No S3 or S4. No discernible murmur noted. Heart sounds are distant. Heart rate 76 bpm. Lungs reveal scattered bilateral crackles. No wheezes. A few scattered rhonchi. Breath sounds equal bilaterally. 8 liter saturation is 92%. Abdomen soft bowel sounds are heard. No masses or tenderness. Extremities are intact. No cyanosis clubbing or edema. Skin is without rash or lesion. Neurologic examination is brief but nonfocal. 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 Severe underlying COPD. Coronary artery disease. Mildly impaired systolic dysfunction with mild congestive heart failure. Benign essential hypertension. Schizophrenia. Bipolar disorder. Dyslipidemia. Obstructive sleep apnea syndrome. History of seizure disorder. Plan: Plan dated 06/26/2022. The patient was on AIRVO yesterday. Has been weaned down to 8 L high flow oxygen today. He looks very comfortable. Denies any significant shortness of breath. We had a discussion with his family yesterday. He has a very steroid responsive lesion. He probably will need treatment for 6-9 months. We will continue to follow make recommendations along the way. Labs, x-rays, and medications are reviewed. Prognosis is guarded. Time with Patient: Less than 30
--- NOTE | 2022-06-26 15:14 | P.PN ---
Progress Note - Text Progress Note Date: 06/26/22 This is a 56-year-old patient, follows with Dr. Carson. Chronic stable medical conditions include GERD, hyperlipidemia, hypertension, seizure disorder, hypothyroid, obstructive sleep apnea not able to use CPAP, bipolar. Smoker- until April 2022. admitted from May 03 through May 142022: - bilateral pneumonia, COPD exacerbation. Received Zosyn. left the hospital - on 4 L of oxygen. now presented to hospital with increasing shortness of breath for last 3 days. Fever and chills. Congested cough. Clear sputum production. Appetite has been fair. Able to walk around some. Patient was placed on the BiPAP the ER. And eventually moved to the ICU. Sitting up in bed awake. Short of breath. Admitted to the hospital from May 24 through June 11. - bilateral pneumonia, acute hypoxic respiratory failure, COPD exacerbation. Had remained on AIRVO. Underwent lung biopsy. for chronic infiltrates. Was discharged on 5 L nasal cannula. Now admitted by my colleagues on the June 17 shortness of breath. Patient was in the garage trying to climb into the house 3 steps had taken his oxygen off and the car. He fell backwards hitting his head on the concrete floor. Did not pass out. [place] to have pneumonia. IV Zosyn. 06/19/2022: ICU. AIRVO. 60 L, 85%. Eating well. Had a bowel movement. Patient's daughter at the bedside. Slight cough. Short of breath. IV Zosyn. IV Solu-Medrol. Patient lung biopsy is come back showing: Organizing pneumonia with fibrotic features 06/20/2022: ICU. AIRVO. 55 L, 55%. Eating some. Reclining in bed. Short of breath. Discussed with Dr. Adler. DC IV Zosyn. Continue IV Solu-Medrol. Reminded about incentive spirometry. Will be moved out of the ICU. Increase Levemir for hyperglycemia. Cutback Lasix to 40 mg a day. 06/21/2022: ICU overflow. AIRVO 50/50. Short of breath. Eating. Had a bowel movement. Up in a recliner. On IV Solu-Medrol. 06/22/2022: AIRVO. Decreased to 50/40. Short of breath. Eating well. IV Solu-Medrol decreased yesterday to 60 mg every 6. 06/23/2022: AIRVO. 40/40. Dr. Adler increased IV Solu-Medrol to 60 mg every 6. Prostate patient went into atrial fibrillation with rapid ventricular rate. Was put on IV Cardizem drip. Later when back in sinus rhythm. This afternoon Cardizem discontinued. Verapamil SR 180 mg started. Eating well. Will be started on eliquis today 06/24/2022: AIRVO 35/35. IV Solu-Medrol 60 mg every 6. Eliquis. Remains in sinus rhythm. Up in a recliner. Discussed with patient. Will need DC to rehab 06/25/2022: Up in a chair. Changed over to high flow nasal cannula 8 L. IV Solu-Medrol 60 mg every 6. Eating well. 06/26/2022: In the recliner. Remains on 8 L nasal high flow cannula. Solu- Medrol 60 mg every 6. Active Medications Hydrocodone Bitart/Acetaminophen (Hydrocodone/Apap 7.5-325mg 1 Each Tab) 1 each PO TID PRN PRN Reason: Pain Last Admin: 06/26/22 07:36 Dose: 1 each Albuterol Sulfate (Albuterol Nebulized 2.5 Mg/3 Ml) 2.5 mg INHALATION RT-QID [facility] Last Admin: 06/26/22 11:39 Dose: 2.5 mg Albuterol Sulfate (Albuterol Nebulized 2.5 Mg/3 Ml) 2.5 mg INHALATION RT-Q4H PRN PRN Reason: Shortness Of Breath Or Wheezing Apixaban (Apixaban 5 Mg Tab) 5 mg PO BID [facility]; Protocol Last Admin: 06/26/22 07:37 Dose: 5 mg Atorvastatin Calcium (Atorvastatin 40 Mg Tab) 40 mg PO DAILY [facility] Last Admin: 06/26/22 07:37 Dose: 40 mg Budesonide/Formoterol Fumarate (Symbicort 160-4.5 Mcg Inhaler) 1 puff INHALATION RT-BID [facility] Last Admin: 06/26/22 08:28 Dose: 1 puff Clonazepam (Clonazepam 1 Mg Tab) 1 mg PO TID [facility] Last Admin: 06/26/22 15:10 Dose: 1 mg Donepezil HCl (Donepezil 5 Mg Tab) 5 mg PO HS [facility] Last Admin: 06/25/22 20:20 Dose: 5 mg Ezetimibe (Ezetimibe 10 Mg Tab) 10 mg PO DAILY [facility] Last Admin: 06/26/22 07:37 Dose: 10 mg Furosemide (Furosemide 40 Mg Tab) 40 mg PO Q48H [facility] Last Admin: 06/25/22 08:48 Dose: 40 mg Gabapentin (Gabapentin 400 Mg Cap) 400 mg PO TID [facility] Last Admin: 06/26/22 15:10 Dose: 400 mg Haloperidol (Haloperidol 2 Mg Tab) 2 mg PO DAILY [facility] Last Admin: 06/26/22 07:37 Dose: 2 mg Insulin Aspart (Insulin Aspart (Novolog) 100 Unit/Ml Vial) 0 unit SQ ACHS [facility]; Protocol Last Admin: 06/26/22 11:47 Dose: Not Given Insulin Detemir (Insulin Detemir (Levemir) 100 Unit/Ml Syr) 38 unit SQ HS [facility] Last Admin: 06/25/22 20:20 Dose: 38 unit Ipratropium Rhame (Ipratropium 0.5 Mg/2.5 Ml Nebu) 0.5 mg INHALATION RT-QID [facility] Last Admin: 06/26/22 11:39 Dose: 0.5 mg Isosorbide Mononitrate (Isosorbide Mononitrate Er 30 Mg Tab.Er.24h) 30 mg PO DAILY [facility] Last Admin: 06/26/22 07:37 Dose: 30 mg Linagliptin (Linagliptin 5 Mg Tablet) 5 mg PO DAILY [facility] Last Admin: 06/26/22 07:37 Dose: 5 mg Loratadine (Loratadine 10 Mg Tab) 10 mg PO DAILY [facility] Last Admin: 06/26/22 07:37 Dose: 10 mg Metformin HCl (Metformin 500 Mg Tab) 500 mg PO BID [facility] Last Admin: 06/26/22 07:36 Dose: 500 mg Methylprednisolone Sodium Succinate (Methylprednisolone Sod Succi 125 Mg/2 Ml Vial) 60 mg IV Q6HR [facility] Last Admin: 06/26/22 11:49 Dose: 60 mg Miscellaneous Information (Potassium Replacement Protocol 1 Each Misc) 1 each MISCELLANE DAILY PRN; Protocol PRN Reason: Per Protocol Naloxone HCl (Naloxone 0.4 Mg/Ml 1 Ml Vial) 0.2 mg IV Q2M PRN PRN Reason: Opioid Reversal Ondansetron HCl (Ondansetron 4 Mg/2 Ml Vial) 4 mg IVP Q8HR PRN PRN Reason: Nausea And Vomiting Last Admin: 06/23/22 11:04 Dose: 4 mg Pantoprazole Sodium (Pantoprazole 40 Mg Tablet) 40 mg PO DAILY [facility] Last Admin: 06/26/22 07:37 Dose: 40 mg Sertraline HCl (Sertraline 100 Mg Tab) 200 mg PO DAILY [facility] Last Admin: 06/26/22 07:36 Dose: 200 mg Trazodone HCl (Trazodone Hcl 50 Mg Tab) 150 mg PO HS [facility] Last Admin: 06/25/22 20:20 Dose: 150 mg Verapamil HCl (Verapamil Sr 180 Mg Tablet.Er) 180 mg PO DAILY [facility] Last Admin: 06/26/22 07:37 Dose: 180 mg Past medical history to include: COPD, GERD, hypertension, hyperlipidemia, some cognitive impairment, seizure disorder, obstructive sleep apnea does not use CPAP, hypothyroid, LAP-BAND with reversal, bipolar Social history: Lives with ex-, Dottie. Smoked For 44 years stopped in April 2022 . 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 [employer]. Physical examination: VITAL SIGNS: 76, 22, 103/67, 92% on 8 L GENERAL:, Up in a recliner, short of breath EYES: Pupils equal. Conjunctiva normal. HEENT: External appearance of nose and ears normal, oral cavity grossly normal. NECK: JVD not raised; masses not palpable. HEART: First and second heart sounds are normal; no edema. LUNGS: Respiratory rate increased; decreased breath sounds , Basal fine crackles ABDOMEN: Soft, nontender, liver spleen not palpable, no masses palpable. PSYCH: Alert and oriented x3; mood and affect. Anxious. MUSCULOSKELETAL:No Clubbing/cyanosis;muscles-grossly intact INVESTIGATIONS, reviewed in the clinical context: 06/23/2022: White count 7 hemoglobin 9.1 platelets 143 potassium 4 creatinine 0.71 TSH 0.138, free T4 0.54 06/20/2022: White count 5.3 hemoglobin 8.2 platelets 89 potassium 4.0 bicarb jg 43 BUN 40 creatinine 0.85 06/19/2022: White count 6.4 hemoglobin 8.1 platelets 81 potassium 3.7 bicarb 43 BUN 34 creatinine 0.87 Chest x-ray: biLateral infiltrates 2-D echocardiogram: [April 2022] EF 55-60%. Moderate LVH. Lung biopsy: [06/08/2022]: Organizing pneumonia with some fibrotic features/cicatrix Assessment and plan: -No pneumonia. Stopped IV Zosyn. Discussed with Dr. 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 IV Solu-Medrol. 60 mg every 6 -Acute hypoxic respiratory failure from pneumonia:: AIRVO. 8 L high flow oxygen -Sick euthyroid syndrome. Low TSH and free T4. -New onset paroxysmal atrial fibrillation rapid ventricular rate. Back in sinus rhythm.: Verapamil SR 180 mg a day. Eliquis. Cardiology following - chronic hypoxic respiratory failure from COPD/organizing pneumonia Home on 5 L of oxygen -Hyperlipidemia Lipitor 40 mg a day -Hyperglycemia secondary to steroids.: Metformin, Levemir i 38 units. Follow Accu-Cheks -Mild cognitive impairment Aricept -Metabolic alkalosis from diuresis Change Lasix to 40 mg every 48 hours -Acute COPD exacerbation in a previous smoker: DuoNeb, Symbicort IV Solu-Medrol -GERD PPI -Bipolar disorder Zoloft 200, Klonopin 0.5 mg 3 times a day, trazodone 150 mg daily at bedtime, Haldol -Essential hypertension Verapamil SR 180 milligrams a day -Full code -Disposition: We will go to rehab IV Solu-Medrol 60 mg every 6. DuoNeb. Incentive spirometry. Eliquis 8 L oxygen.
[2022-06-26 16:09] LABS: Glucose,Whole Blood 242 mg/dL (70-110)
[2022-06-26 20:07] LABS: Glucose,Whole Blood 316 mg/dL (70-110)
[2022-06-26] MEDS: DONEPEZIL 5 MG TAB PO SCH (20:31)
[2022-06-26] MEDS: INSULIN DETEMIR (LEVEMIR) 100 UNIT/ML SYR SQ SCH (20:31)
[2022-06-26] MEDS: traZODone HCL 50 MG TAB PO SCH (20:32)
[2022-06-27] MEDS ORDERED: METOPROLOL SUCCINATE (ER) 25 MG TAB.ER.24H PO SCH (04:50)
[2022-06-27 05:52] LABS: African American GFR (CKD) >90 (>60 ml/min/1.73 sqM); Anion Gap 2 mmol/L; Blood Urea Nitrogen 23 mg/dL (9-20); Calcium 8.1 mg/dL (8.4-10.2); Carbon Dioxide 35 mmol/L (22-30); Chloride 98 mmol/L (98-107); Glucose 171 mg/dL (74-99); Non-African American GFR(CKD) >90 (>60 ml/min/1.73 sqM); Sodium 135 mmol/L (137-145)
[2022-06-27 06:29] LABS: Glucose,Whole Blood 186 mg/dL (70-110)
[2022-06-27] MEDS: methylPREDNISolone SOD SUCCI 125 MG/2 ML VIAL IV SCH ×4 (06:48→23:47)
[2022-06-27] MEDS: INSULIN ASPART (NovoLOG) 100 UNIT/ML VIAL SQ SCH ×4 (06:48→20:39)
[2022-06-27] MEDS: ALBUTEROL NEBULIZED 2.5 MG/3 ML INHALATION SCH ×4 (08:15→20:14)
[2022-06-27] MEDS: IPRATROPIUM 0.5 MG/2.5 ML NEBU INHALATION SCH ×4 (08:17→20:14)
[2022-06-27] MEDS: SYMBICORT 160-4.5 MCG INHALER INHALATION SCH ×2 (08:20→20:14)
[2022-06-27] MEDS: SERTRALINE 100 MG TAB PO SCH (08:51)
[2022-06-27] MEDS: GABAPENTIN 400 MG CAP PO SCH ×3 (08:51→20:38)
[2022-06-27] MEDS: VERAPAMIL SR 180 MG TABLET.ER PO SCH (08:51)
[2022-06-27] MEDS: EZETIMIBE 10 MG TAB PO SCH (08:51)
[2022-06-27] MEDS: APIXABAN 5 MG TAB PO SCH ×2 (08:51→20:39)
[2022-06-27] MEDS: ISOSORBIDE MONONITRATE ER 30 MG TAB.ER.24H PO SCH (08:52)
[2022-06-27] MEDS: FUROSEMIDE 40 MG TAB PO SCH (08:52)
[2022-06-27] MEDS: ATORVASTATIN 40 MG TAB PO SCH (08:52)
[2022-06-27] MEDS: LINAGLIPTIN 5 MG TABLET PO SCH (08:52)
[2022-06-27] MEDS: LORATADINE 10 MG TAB PO SCH (08:52)
[2022-06-27] MEDS: metFORMIN 500 MG TAB PO SCH ×2 (08:52→20:39)
[2022-06-27] MEDS: PANTOPRAZOLE 40 MG TABLET PO SCH (08:52)
[2022-06-27] MEDS: clonazePAM 1 MG TAB PO SCH ×3 (08:52→20:39)
[2022-06-27 10:20] LABS: Anisocytosis Slight; HCT 29.6 % (39.0-53.0); HGB 9.4 gm/dL (13.0-17.5); Hypochromasia Moderate; MCH 29.2 pg (25.0-35.0); MCHC 31.7 g/dL (31.0-37.0); Mean Platelet Volume 8.6; Platelet Count 235 k/uL (150-450); Poikilocytosis Moderate; RBC 3.22 m/uL (4.30-5.90); RDW 16.9 % (11.5-15.5)
--- NOTE | 2022-06-27 11:05 | P.PN ---
Subjective Progress Note Date: 06/27/22 HISTORY OF PRESENT ILLNESS: Patient is a pleasant 56-year-old male with significant past medical history of COPD, GERD, hypertension, hyperlipidemia, seizure disorder, diabetes, hyp othyroid, obstructive sleep apnea, bipolar, former smoker quit 04/30 he was admitted 06/16/22 for respiratory distress. Cardiology was consulted for new onset atrial fibrillation with RVR overnight. He follows with Dr. Ayon in the office. It is questionable if he has had atrial fibrillation in the past. He reports that he couldn't feel his heart racing but had mild chest pain last night, denies any dizziness, shortness of breath is stable on high flow nasal cannula oxygen. He has had multiple admissions in the past 3 months for pneumonia, COPD exacerbation, respiratory failure. He had an echo 05/24/22 that showed an EF of 5560 percent. He had a heart catheterization 09/06/21 that showed calcified vessel with diffuse atherosclerotic plaque and a large dominant right coronary artery and a moderate area of stenosis in mid LAD. Hgb A1C is 8.4. 06/24 Patient sitting up, out of bed in chair. Denies any chest pain or palpitations. Shortness of breath is unchanged. Remains in sinus rhythm. 06/27/2022 Cardiology was reconsulted overnight due to patient going back into atrial fibrillation. The patient was started on metoprolol succinate 25 mg daily and he received a dose overnight. He since converted to sinus mechanism and is maintaining sinus mechanism this morning. He denies any chest pain or pressure. Vital signs are stable. PHYSICAL EXAM: VITAL SIGNS: Reviewed. GENERAL: Well-developed in no acute distress. NECK: Supple. No JVD or thyromegaly LUNGS: Respirations even and unlabored. Lungs diminished to auscultation bilaterally. HEART: Regular rate and rhythm. S1 and S2 heard. EXTREMITIES: Normal range of motion. No clubbing or cyanosis. Peripheral pulses intact. No lower extremity edema ASSESSMENT: Pneumonia Acute hypoxic respiratory failure, on AIRVO New onset paroxysmal atrial fibrillation with RVR, currently in sinus rhythm Hypertension Hyperlipidemia COPD Diabetes PLAN: Continue current cardiac medications Change metoprolol succinate to metoprolol tartrate 25 mg twice a day Continue telemetry monitoring Further recommendations pending patient's course Nurse practitioner note has been reviewed by physician. Signing provider agrees with the documented findings, assessment, and plan of care. Objective - Vital Signs Vital signs: Vital Signs Temp 98.4 F 06/27/22 08:00 Pulse 116 H 06/27/22 08:44 Resp 18 06/27/22 08:00 BP 134/83 06/27/22 08:00 Pulse Ox 98 06/27/22 08:23 FiO2 55 06/27/22 08:23 Intake & Output 06/26/22 06/27/22 06/27/22 18:59 06:59 18:59 Intake Total 416 118 Output Total 600 250 200 Balance -184 -250 -82 Intake: Oral 416 118 Output: Urine 600 250 200 Other: Voiding Method Urinal Urinal Urinal # Voids 2 # Bowel Movements 1 - Labs CBC & Chem 7: 06/27/22 09:59 06/27/22 05:30 Labs: Abnormal Lab Results - Last 24 Hours (Table) 06/26/22 06/26/22 06/26/22 Range/Units 11:28 16:08 20:05 RBC (4.30-5.90) m/uL Hgb (13.0-17.5) gm/dL Hct (39.0-53.0) % RDW (11.5-15.5) % Sodium (137-145) mmol/L Carbon Dioxide (22-30) mmol/L BUN (9-20) mg/dL Glucose (74-99) mg/dL POC Glucose (mg/dL) 147 H 242 H 316 H (70-110) mg/dL Calcium (8.4-10.2) mg/dL 06/27/22 06/27/22 06/27/22 Range/Units 05:30 06:26 09:59 RBC 3.22 L (4.30-5.90) m/uL Hgb 9.4 L (13.0-17.5) gm/dL Hct 29.6 L (39.0-53.0) % RDW 16.9 H (11.5-15.5) % Sodium 135 L (137-145) mmol/L Carbon Dioxide 35 H (22-30) mmol/L BUN 23 H (9-20) mg/dL Glucose 171 H (74-99) mg/dL POC Glucose (mg/dL) 186 H (70-110) mg/dL Calcium 8.1 L (8.4-10.2) mg/dL
[2022-06-27 11:32] LABS: Glucose,Whole Blood 208 mg/dL (70-110)
[2022-06-27] MEDS: HYDROcodone/APAP 7.5-325MG 1 EACH TAB PO PRN ×2 (11:36→23:47)
--- NOTE | 2022-06-27 14:07 | P.PN ---
Subjective Progress Note Date: 06/27/22 Principal diagnosis: Shortness of breath. Reevaluated today on 06/19/2022, patient remains in the ICU, he is presently on airvo, at 60 L flow with 83% FiO2, and O2 saturation is marginal done in the low 90s. Clinically the patient is about the same. That report from the [facility] just came back, and is basically consistent with cicatricial organizing pneumonia with mostly deposition of fibrous bands and loose granulation tissue/organizing pneumonia and this is basically a variant of cryptogenic organizing pneumonia. And shouldn't have a favorable response with the use of high doses of steroids. Actually the description made pathologically really fits into our patient's situation as we have noticed significant improvement with high-dose steroids on this patient on the past few admissions. It is definitely a steroids responsive process. And I believe the patient would have to be maintained on relatively high-dose of steroids even upon discharge, I would strongly recommend no less than 50 mg of 40 mg of prednisone daily maintenance for a while today's labs are unremarkable including a CBC and basic metabolic profile as well as renal profile. reevaluated today on 06/20/2022, patient is doing better, his FiO2 is down to 60% and flow down to 50%, chest x-ray is showing slight improvement. Patient remains on relatively high-dose of steroids. I will likely transfer the patient out of the ICU to a regular medical floor today. In the meantime we'll continue steroids, bronchodilators, and I will discontinue antibiotics. Now that I have a tissue diagnosis that matches the clinical diagnoses/steroids responsive interstitial lung disease. Reevaluated today on 06/21/2022, continues to gradually improve, he was on 55% FiO2 and 55 L flow with O2 sat from 96%, I cut him down to 50% FiO2 and 15 L flow kept his O2 saturation in the low 90s. Patient desaturates easily but recovers nicely with any activity. Remains on high-dose steroids, remains on bronchodilators, and I believe the patient could be transferred out of the ICU to a regular medical floor today. CBC is basically unremarkable. Basic metabolic profile is normal renal profile is normal bicarb is 43 The patient is seen today 06/22/2022 in follow-up on the selective care unit. He is currently sitting up at the bedside. Awake and alert in no acute distress. He is maintaining good O2 saturations in the 90s on AirVo for high flow oxygen at 50 L and 60% FiO2. He is continued on Symbicort, albuterol, IV Solu-Medrol. Lovenox for DVT prophylaxis. The patient's today 06/23/2022 in follow-up on the selective care unit. He is awake and alert in no acute distress. He remains on AirVo high flow oxygen currently at 40 L and 40% FiO2. He denies any worsening shortness of breath, cough or congestion. Feeling better each day. Continued on IV Solu-Medrol. Blood cultures reveal no growth. White count 7.0. Hemoglobin 9.1. Platelets 143. Sodium 134. Bicarb 41. BUN 29. Creatinine 0.71. Glucose 215. Lovenox for DVT prophylaxis per The patient is seen today 06/24/2022 in follow-up on the selective care unit. He is currently sitting up in a chair at the bedside. Awake and alert in no acute distress. Remains on AirVo high flow oxygen at 35 L and 55% FiO2. No worsening shortness of breath, cough or congestion. Chest x-ray continues to show cardiomegaly with low lung volumes and is diffuse interstitial lung disease. Remains unchanged. He is continued on IV solu Medrol 60 mg every 6 hours. The patient is seen today 06/25/2022 in follow-up on the selective care unit. He is currently sitting up in a chair at the bedside. Awake and alert in no acu te distress. Remains on AirVo high flow oxygen at 35 L and 45% FiO2. No worsening shortness of breath, cough or congestion. No IV fluids. He remains on IV Solu-Medrol. Continued on bronchodilators. Remains on oral diuretics. Progress note dated 06/26/2022. The patient is seen today in room 365. The patient has been weaned down to 8 L high flow oxygen. He is not receiving any IV fluids. His breathing seems very stable. He denies any specific complaints. Yesterday, he was on AIRVO. No new labs today other than a glucose of 147. Progress note dated 06/27/2022. The patient is seen today in room 365. Last night he developed atrial fibrillation with rapid ventricular response, and his saturations drop. He was placed back on AIRVO, with settings of 45 L/m, and an FiO2 of 55%. We saw him yesterday, he was on high flow nasal cannula at 8 L. He's not receiving any IV fluids. White count 10, hemoglobin 9.4, hematocrit 29.6, with a normal platelet count. Sodium 135, potassium 4, chlorides 98, CO2 35, BUN 23, and creatinine 0.68. Objective - Vital Signs Vital signs: Vital Signs Temp 98.4 F 06/27/22 11:22 Pulse 74 06/27/22 11:59 Resp 22 06/27/22 11:22 BP 118/76 06/27/22 11:22 Pulse Ox 96 06/27/22 11:22 FiO2 55 06/27/22 11:22 Intake & Output 06/26/22 06/27/22 06/27/22 18:59 06:59 18:59 Intake Total 416 236 Output Total 600 250 440 Balance -184 -250 -204 Intake: Oral 416 236 Output: Urine 600 250 440 Other: Voiding Method Urinal Urinal Urinal # Voids 2 # Bowel Movements 1 - Exam No acute distress, oriented 3. No respiratory distress. Currently on AIRVO. HEENT examination is grossly unremarkable. Neck supple. Full range of motion. No adenopathy thyromegaly or neck vein distention. Cardiovascular examination reveals regular rhythm rate. S1-S2 normal. No S3 or S4. No discernible murmur noted. Heart sounds are distant. Heart rate 74 bpm. Lungs reveal scattered bilateral crackles. No wheezes. A few scattered rhonchi. Breath sounds equal bilaterally. Saturations are 96%.. Abdomen soft bowel sounds are heard. No masses or tenderness. Extremities are intact. No cyanosis clubbing or edema. Skin is without rash or lesion. Neurologic examination is brief but nonfocal. - Labs CBC & Chem 7: 06/27/22 09:59 06/27/22 05:30 Labs: Abnormal Lab Results - Last 24 Hours (Table) 06/26/22 06/26/22 06/27/22 Range/Units 16:08 20:05 05:30 RBC (4.30-5.90) m/uL Hgb (13.0-17.5) gm/dL Hct (39.0-53.0) % RDW (11.5-15.5) % Sodium 135 L (137-145) mmol/L Carbon Dioxide 35 H (22-30) mmol/L BUN 23 H (9-20) mg/dL Glucose 171 H (74-99) mg/dL POC Glucose (mg/dL) 242 H 316 H (70-110) mg/dL Calcium 8.1 L (8.4-10.2) mg/dL 06/27/22 06/27/22 06/27/22 Range/Units 06:26 09:59 11:30 RBC 3.22 L (4.30-5.90) m/uL Hgb 9.4 L (13.0-17.5) gm/dL Hct 29.6 L (39.0-53.0) % RDW 16.9 H (11.5-15.5) % Sodium (137-145) mmol/L Carbon Dioxide (22-30) mmol/L BUN (9-20) mg/dL Glucose (74-99) mg/dL POC Glucose (mg/dL) 186 H 208 H (70-110) mg/dL Calcium (8.4-10.2) mg/dL Assessment and Plan Assessment: Acute on chronic hypoxic respiratory failure 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 New onset atrial fibrillation with RVR, resolved. Severe underlying COPD. Coronary artery disease. Mildly impaired systolic dysfunction with mild congestive heart failure. Benign essential hypertension. Schizophrenia. Bipolar disorder. Dyslipidemia. Obstructive sleep apnea syndrome. History of seizure disorder. Plan: Plan dated 06/26/2022. The patient was on AIRVO yesterday. Has been weaned down to 8 L high flow oxygen today. He looks very comfortable. Denies any significant shortness of breath. We had a discussion with his family yesterday. He has a very steroid responsive lesion. He probably will need treatment for 6-9 months. We will continue to follow make recommendations along the way. Labs, x-rays, and medications are reviewed. Prognosis is guarded. Plan dated 06/27/2022. Labs, x-rays, medications are all reviewed. He is currently on AIRVO. Yesterday, he was on 8 L high flow oxygen. Last night he developed atrial fibrillation with RVR. He was treated by cardiology. His heart rate is better controlled. We will continue to follow make recommendations along. Prognosis is guarded. I did mention to him that we would treat him with steroids for pro longed period of time, likely 6 months or more. Time with Patient: Less than 30
--- NOTE | 2022-06-27 16:13 | P.PN ---
Progress Note - Text Progress Note Date: 06/27/22 This is a 56-year-old patient, follows with Dr. Carson. Chronic stable medical conditions include GERD, hyperlipidemia, hypertension, seizure disorder, hypothyroid, obstructive sleep apnea not able to use CPAP, bipolar. Smoker- until April 2022. admitted from May 03 through May 142022: - bilateral pneumonia, COPD exacerbation. Received Zosyn. left the hospital - on 4 L of oxygen. now presented to hospital with increasing shortness of breath for last 3 days. Fever and chills. Congested cough. Clear sputum production. Appetite has been fair. Able to walk around some. Patient was placed on the BiPAP the ER. And eventually moved to the ICU. Sitting up in bed awake. Short of breath. Admitted to the hospital from May 24 through June 11. - bilateral pneumonia, acute hypoxic respiratory failure, COPD exacerbation. Had remained on AIRVO. Underwent lung biopsy. for chronic infiltrates. Was discharged on 5 L nasal cannula. Now admitted by my colleagues on the June 17 shortness of breath. Patient was in the garage trying to climb into the house 3 steps had taken his oxygen off and the car. He fell backwards hitting his head on the concrete floor. Did not pass out. [place] to have pneumonia. IV Zosyn. 06/19/2022: ICU. AIRVO. 60 L, 85%. Eating well. Had a bowel movement. Patient's daughter at the bedside. Slight cough. Short of breath. IV Zosyn. IV Solu-Medrol. Patient lung biopsy is come back showing: Organizing pneumonia with fibrotic features 06/20/2022: ICU. AIRVO. 55 L, 55%. Eating some. Reclining in bed. Short of breath. Discussed with Dr. Adler. DC IV Zosyn. Continue IV Solu-Medrol. Reminded about incentive spirometry. Will be moved out of the ICU. Increase Levemir for hyperglycemia. Cutback Lasix to 40 mg a day. 06/21/2022: ICU overflow. AIRVO 50/50. Short of breath. Eating. Had a bowel movement. Up in a recliner. On IV Solu-Medrol. 06/22/2022: AIRVO. Decreased to 50/40. Short of breath. Eating well. IV Solu-Medrol decreased yesterday to 60 mg every 6. 06/23/2022: AIRVO. 40/40. Dr. Adler increased IV Solu-Medrol to 60 mg every 6. Prostate patient went into atrial fibrillation with rapid ventricular rate. Was put on IV Cardizem drip. Later when back in sinus rhythm. This afternoon Cardizem discontinued. Verapamil SR 180 mg started. Eating well. Will be started on eliquis today 06/24/2022: AIRVO 35/35. IV Solu-Medrol 60 mg every 6. Eliquis. Remains in sinus rhythm. Up in a recliner. Discussed with patient. Will need DC to rehab 06/25/2022: Up in a chair. Changed over to high flow nasal cannula 8 L. IV Solu-Medrol 60 mg every 6. Eating well. 06/26/2022: In the recliner. Remains on 8 L nasal high flow cannula. Solu- Medrol 60 mg every 6. 06/27/2022: Last eye patient felt his heart racing. When back in A. fib with rapid ventricular rate. Back no sinus rhythm. Lopressor 25 mg twice a day added by pulmonary. Back on AIRVO. 45/55. Eating well. Active Medications Hydrocodone Bitart/Acetaminophen (Hydrocodone/Apap 7.5-325mg 1 Each Tab) 1 each PO TID PRN PRN Reason: Pain Last Admin: 06/27/22 11:36 Dose: 1 each Albuterol Sulfate (Albuterol Nebulized 2.5 Mg/3 Ml) 2.5 mg INHALATION RT-QID [facility] Last Admin: 06/27/22 16:06 Dose: 2.5 mg Albuterol Sulfate (Albuterol Nebulized 2.5 Mg/3 Ml) 2.5 mg INHALATION RT-Q4H PRN PRN Reason: Shortness Of Breath Or Wheezing Apixaban (Apixaban 5 Mg Tab) 5 mg PO BID [facility]; Protocol Last Admin: 06/27/22 08:51 Dose: 5 mg Atorvastatin Calcium (Atorvastatin 40 Mg Tab) 40 mg PO DAILY [facility] Last Admin: 06/27/22 08:52 Dose: 40 mg Budesonide/Formoterol Fumarate (Symbicort 160-4.5 Mcg Inhaler) 1 puff INHALATION RT-BID [facility] Last Admin: 06/27/22 08:20 Dose: 1 puff Clonazepam (Clonazepam 1 Mg Tab) 1 mg PO TID [facility] Last Admin: 06/27/22 16:05 Dose: 1 mg Donepezil HCl (Donepezil 5 Mg Tab) [address] [facility] Last Admin: 06/26/22 20:31 Dose: 5 mg Ezetimibe (Ezetimibe 10 Mg Tab) 10 mg PO DAILY [facility] Last Admin: 06/27/22 08:51 Dose: 10 mg Furosemide (Furosemide 40 Mg Tab) 40 mg PO Q48H [facility] Last Admin: 06/27/22 08:52 Dose: 40 mg Gabapentin (Gabapentin 400 Mg Cap) 400 mg PO TID [facility] Last Admin: 06/27/22 16:05 Dose: 400 mg Haloperidol (Haloperidol 2 Mg Tab) 2 mg PO DAILY [facility] Last Admin: 06/27/22 08:52 Dose: 2 mg Insulin Aspart (Insulin Aspart (Novolog) 100 Unit/Ml Vial) 0 unit SQ [facility]; Protocol Last Admin: 06/27/22 11:36 Dose: 4 unit Insulin Detemir (Insulin Detemir (Levemir) 100 Unit/Ml Syr) [address] [facility] Last Admin: 06/26/22 20:31 Dose: 38 unit Ipratropium [place] (Ipratropium 0.5 Mg/2.5 Ml Nebu) 0.5 mg INHALATION RT-QID [facility] Last Admin: 06/27/22 16:08 Dose: 0.5 mg Isosorbide Mononitrate (Isosorbide Mononitrate Er 30 Mg Tab.Er.24h) 30 mg PO DAILY [facility] Last Admin: 06/27/22 08:52 Dose: 30 mg Linagliptin (Linagliptin 5 Mg Tablet) 5 mg PO DAILY [facility] Last Admin: 06/27/22 08:52 Dose: 5 mg Loratadine (Loratadine 10 Mg Tab) 10 mg PO DAILY [facility] Last Admin: 06/27/22 08:52 Dose: 10 mg Metformin HCl (Metformin 500 Mg Tab) 500 mg PO BID [facility] Last Admin: 06/27/22 08:52 Dose: 500 mg Methylprednisolone Sodium Succinate (Methylprednisolone Sod Succi 125 Mg/2 Ml Vial) 60 mg IV Q6HR [facility] Last Admin: 06/27/22 11:35 Dose: 60 mg Metoprolol Tartrate (Metoprolol Tartrate 25 Mg Tab) 25 mg PO BID [facility] Miscellaneous Information (Potassium Replacement Protocol 1 Each Misc) 1 each MISCELLANE DAILY PRN; Protocol PRN Reason: Per Protocol Naloxone HCl (Naloxone 0.4 Mg/Ml 1 Ml Vial) 0.2 mg IV Q2M PRN PRN Reason: Opioid Reversal Ondansetron HCl (Ondansetron 4 Mg/2 Ml Vial) 4 mg IVP Q8HR PRN PRN Reason: Nausea And Vomiting Last Admin: 06/23/22 11:04 Dose: 4 mg Pantoprazole Sodium (Pantoprazole 40 Mg Tablet) 40 mg PO DAILY [facility] Last Admin: 06/27/22 08:52 Dose: 40 mg Sertraline HCl (Sertraline 100 Mg Tab) 200 mg PO DAILY [facility] Last Admin: 06/27/22 08:51 Dose: 200 mg Trazodone HCl (Trazodone Hcl 50 Mg Tab) 150 mg PO HS [facility] Last Admin: 06/26/22 20:32 Dose: 150 mg Verapamil HCl (Verapamil Sr 180 Mg Tablet.Er) 180 mg PO DAILY [facility] Last Admin: 06/27/22 08:51 Dose: 180 mg Past medical history to include: COPD, GERD, hypertension, hyperlipidemia, some cognitive impairment, seizure disorder, obstructive sleep apnea does not use CPAP, hypothyroid, LAP-BAND with reversal, bipolar Social history: Lives with ex-, Dottie. Smoked For 44 years stopped in April 2022 . 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 Physical examination: VITAL SIGNS: 98 3, 103, 22, 129/77, 96% on AIRVO GENERAL:, Reclining in bed, short of breath EYES: Pupils equal. Conjunctiva normal. HEENT: External appearance of nose and ears normal, oral cavity grossly normal. NECK: JVD not raised; masses not palpable. HEART: First and second heart sounds are normal; no edema. LUNGS: Respiratory rate increased; decreased breath sounds , Basal fine crackles ABDOMEN: Soft, nontender, liver spleen not palpable, no masses palpable. PSYCH: Alert and oriented x3; mood and affect. Anxious. MUSCULOSKELETAL:No Clubbing/cyanosis;muscles-grossly intact INVESTIGATIONS, reviewed in the clinical context: 06/27/2022: White count and hemoglobin 9.4 platelets 235 06/23/2022: White count 7 hemoglobin 9.1 platelets 143 potassium 4 creatinine 0.71 TSH 0.138, free T4 0.54 06/20/2022: White count 5.3 hemoglobin 8.2 platelets 89 potassium 4.0 bicarbonate 43 BUN 40 creatinine 0.85 06/19/2022: White count 6.4 hemoglobin 8.1 platelets 81 potassium 3.7 bicarb 43 BUN 34 creatinine 0.87 Chest x-ray: biLateral infiltrates 2-D echocardiogram: [April 2022] EF 55-60%. Moderate LVH. Lung biopsy: [06/08/2022]: Organizing pneumonia with some fibrotic features/cicatrix Assessment and plan: -No pneumonia. Stopped IV Zosyn. Discussed with Dr. 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 IV Solu-Medrol. 60 mg every 6 -Acute hypoxic respiratory failure from pneumonia:: AIRVO. 8 L high flow oxygen -Sick euthyroid syndrome. Low TSH and free T4. - paroxysmal atrial fibrillation rapid ventricular rate. Overnight Back in sinus rhythm.: Verapamil SR 180 mg a day. Eliquis. Cardiology following. Lopressor 25 mg twice a day added - chronic hypoxic respiratory failure from COPD/organizing pneumonia Home on 5 L of oxygen -Hyperlipidemia Lipitor 40 mg a day -Hyperglycemia secondary to steroids.: Metformin, Levemir i 38 units. Follow Accu-Cheks -Mild cognitive impairment Aricept -Metabolic alkalosis from diuresis Change Lasix to 40 mg every 48 hours -Acute COPD exacerbation in a previous smoker: DuoNeb, Symbicort IV Solu-Medrol -GERD PPI -Bipolar disorder Zoloft 200, Klonopin 0.5 mg 3 times a day, trazodone 150 mg daily at bedtime, Haldol -Essential hypertension Verapamil SR 180 milligrams a day -Full code -Disposition: We will go to rehab IV Solu-Medrol 60 mg every 6. DuoNeb. Incentive spirometry. Eliquis AIRVO. Lopressor 25 mg twice a day added for rapid A. fib paroxysmal overnight.
[2022-06-27 16:29] LABS: Glucose,Whole Blood 259 mg/dL (70-110)
[2022-06-27 20:20] LABS: Glucose,Whole Blood 270 mg/dL (70-110)
[2022-06-27] MEDS: traZODone HCL 50 MG TAB PO SCH (20:38)
[2022-06-27] MEDS: METOPROLOL TARTRATE 25 MG TAB PO SCH (20:38)
[2022-06-27] MEDS: INSULIN DETEMIR (LEVEMIR) 100 UNIT/ML SYR SQ SCH (20:39)
[2022-06-27] MEDS: DONEPEZIL 5 MG TAB PO SCH (20:39)
[2022-06-28 06:37] LABS: Glucose,Whole Blood 222 mg/dL (70-110)
[2022-06-28] MEDS: methylPREDNISolone SOD SUCCI 125 MG/2 ML VIAL IV SCH ×3 (06:53→16:25)
[2022-06-28] MEDS: INSULIN ASPART (NovoLOG) 100 UNIT/ML VIAL SQ SCH ×4 (06:53→21:00)
[2022-06-28] MEDS: IPRATROPIUM 0.5 MG/2.5 ML NEBU INHALATION SCH ×4 (08:26→19:52)
[2022-06-28] MEDS: SYMBICORT 160-4.5 MCG INHALER INHALATION SCH ×2 (08:26→19:52)
[2022-06-28] MEDS: ALBUTEROL NEBULIZED 2.5 MG/3 ML INHALATION SCH ×4 (08:26→19:51)
[2022-06-28] MEDS: EZETIMIBE 10 MG TAB PO SCH (08:55)
[2022-06-28] MEDS: GABAPENTIN 400 MG CAP PO SCH ×3 (08:55→21:00)
[2022-06-28] MEDS: METOPROLOL TARTRATE 25 MG TAB PO SCH ×2 (08:55→21:00)
[2022-06-28] MEDS: metFORMIN 500 MG TAB PO SCH ×2 (08:56→21:00)
[2022-06-28] MEDS: LINAGLIPTIN 5 MG TABLET PO SCH (08:56)
[2022-06-28] MEDS: LORATADINE 10 MG TAB PO SCH (08:56)
[2022-06-28] MEDS: VERAPAMIL SR 180 MG TABLET.ER PO SCH (08:56)
[2022-06-28] MEDS: APIXABAN 5 MG TAB PO SCH ×2 (08:56→21:00)
[2022-06-28] MEDS: ISOSORBIDE MONONITRATE ER 30 MG TAB.ER.24H PO SCH (08:56)
[2022-06-28] MEDS: ATORVASTATIN 40 MG TAB PO SCH (08:56)
[2022-06-28] MEDS: PANTOPRAZOLE 40 MG TABLET PO SCH (08:56)
[2022-06-28] MEDS: SERTRALINE 100 MG TAB PO SCH (08:56)
[2022-06-28] MEDS: clonazePAM 1 MG TAB PO SCH ×3 (08:56→21:00)
[2022-06-28 11:43] LABS: Glucose,Whole Blood 170 mg/dL (70-110)
--- NOTE | 2022-06-28 12:26 | P.PN ---
Subjective Progress Note Date: 06/28/22 HISTORY OF PRESENT ILLNESS: Patient is a pleasant 56-year-old male with significant past medical history of COPD, GERD, hypertension, hyperlipidemia, seizure disorder, diabetes, hyp othyroid, obstructive sleep apnea, bipolar, former smoker quit 04/30 he was admitted 06/16/22 for respiratory distress. Cardiology was consulted for new onset atrial fibrillation with RVR overnight. He follows with Dr. Ayon in the office. It is questionable if he has had atrial fibrillation in the past. He reports that he couldn't feel his heart racing but had mild chest pain last night, denies any dizziness, shortness of breath is stable on high flow nasal cannula oxygen. He has had multiple admissions in the past 3 months for pneumonia, COPD exacerbation, respiratory failure. He had an echo 05/24/22 that showed an EF of 5560 percent. He had a heart catheterization 09/06/21 that showed calcified vessel with diffuse atherosclerotic plaque and a large dominant right coronary artery and a moderate area of stenosis in mid LAD. Hgb A1C is 8.4. 06/24 Patient sitting up, out of bed in chair. Denies any chest pain or palpitations. Shortness of breath is unchanged. Remains in sinus rhythm. 06/27/2022 Cardiology was reconsulted overnight due to patient going back into atrial fibrillation. The patient was started on metoprolol succinate 25 mg daily and he received a dose overnight. He since converted to sinus mechanism and is maintaining sinus mechanism this morning. He denies any chest pain or pressure. Vital signs are stable. 06/28/2022 Patient examined this morning at the bedside. Patient denies chest pain or pressure. He denies shortness of breath. Telemetry reveals sinus mechanism. PHYSICAL EXAM: VITAL SIGNS: Reviewed. GENERAL: Well-developed in no acute distress. NECK: Supple. No JVD or thyromegaly LUNGS: Respirations even and unlabored. Lungs diminished to auscultation bilaterally. HEART: Regular rate and rhythm. S1 and S2 heard. EXTREMITIES: Normal range of motion. No clubbing or cyanosis. Peripheral pulses intact. No lower extremity edema ASSESSMENT: Pneumonia Acute hypoxic respiratory failure, on AIRVO New onset paroxysmal atrial fibrillation with RVR, currently in sinus rhythm Hypertension Hyperlipidemia COPD Diabetes PLAN: Continue current cardiac medications Patient is currently stable from a cardiac standpoint We will sign off. Please reconsult if needed. Nurse practitioner note has been reviewed by physician. Signing provider agrees with the documented findings, assessment, and plan of care. Objective - Vital Signs Vital signs: Vital Signs Temp 97 F L 06/28/22 08:56 Pulse 65 06/28/22 08:56 Resp 21 06/28/22 08:56 BP 112/71 06/28/22 08:56 Pulse Ox 94 L 06/28/22 12:12 FiO2 55 06/28/22 12:12 Intake & Output 06/27/22 06/28/22 06/28/22 18:59 06:59 18:59 Intake Total 354 120 Output Total 870 1025 Balance -516 -1025 120 Intake: Oral 354 120 Output: Urine 870 1025 Other: Voiding Method Urinal Urinal Urinal # Bowel Movements 1 - Labs CBC & Chem 7: 06/27/22 09:59 06/27/22 05:30 Labs: Abnormal Lab Results - Last 24 Hours (Table) 06/27/22 06/27/22 06/28/22 Range/Units 16:28 20:18 06:35 POC Glucose (mg/dL) 259 H 270 H 222 H (70-110) mg/dL 06/28/22 Range/Units 11:41 POC Glucose (mg/dL) 170 H (70-110) mg/dL
--- NOTE | 2022-06-28 13:54 | P.PN ---
Subjective Progress Note Date: 06/28/22 Principal diagnosis: Shortness of breath. Reevaluated today on 06/19/2022, patient remains in the ICU, he is presently on airvo, at 60 L flow with 83% FiO2, and O2 saturation is marginal done in the low 90s. Clinically the patient is about the same. That report from the [facility] just came back, and is basically consistent with cicatricial organizing pneumonia with mostly deposition of fibrous bands and loose granulation tissue/organizing pneumonia and this is basically a variant of cryptogenic organizing pneumonia. And shouldn't have a favorable response with the use of high doses of steroids. Actually the description made pathologically really fits into our patient's situation as we have noticed significant improvement with high-dose steroids on this patient on the past few admissions. It is definitely a steroids responsive process. And I believe the patient would have to be maintained on relatively high-dose of steroids even upon discharge, I would strongly recommend no less than 50 mg of 40 mg of prednisone daily maintenance for a while today's labs are unremarkable including a CBC and basic metabolic profile as well as renal profile. reevaluated today on 06/20/2022, patient is doing better, his FiO2 is down to 60% and flow down to 50%, chest x-ray is showing slight improvement. Patient remains on relatively high-dose of steroids. I will likely transfer the patient out of the ICU to a regular medical floor today. In the meantime we'll continue steroids, bronchodilators, and I will discontinue antibiotics. Now that I have a tissue diagnosis that matches the clinical diagnoses/steroids responsive interstitial lung disease. Reevaluated today on 06/21/2022, continues to gradually improve, he was on 55% FiO2 and 55 L flow with O2 sat from 96%, I cut him down to 50% FiO2 and 15 L flow kept his O2 saturation in the low 90s. Patient desaturates easily but recovers nicely with any activity. Remains on high-dose steroids, remains on bronchodilators, and I believe the patient could be transferred out of the ICU to a regular medical floor today. CBC is basically unremarkable. Basic metabolic profile is normal renal profile is normal bicarb is 43 The patient is seen today 06/22/2022 in follow-up on the selective care unit. He is currently sitting up at the bedside. Awake and alert in no acute distress. He is maintaining good O2 saturations in the 90s on AirVo for high flow oxygen at 50 L and 60% FiO2. He is continued on Symbicort, albuterol, IV Solu-Medrol. Lovenox for DVT prophylaxis. The patient's today 06/23/2022 in follow-up on the selective care unit. He is awake and alert in no acute distress. He remains on AirVo high flow oxygen currently at 40 L and 40% FiO2. He denies any worsening shortness of breath, cough or congestion. Feeling better each day. Continued on IV Solu-Medrol. Blood cultures reveal no growth. White count 7.0. Hemoglobin 9.1. Platelets 143. Sodium 134. Bicarb 41. BUN 29. Creatinine 0.71. Glucose 215. Lovenox for DVT prophylaxis per The patient is seen today 06/24/2022 in follow-up on the selective care unit. He is currently sitting up in a chair at the bedside. Awake and alert in no acute distress. Remains on AirVo high flow oxygen at 35 L and 55% FiO2. No worsening shortness of breath, cough or congestion. Chest x-ray continues to show cardiomegaly with low lung volumes and is diffuse interstitial lung disease. Remains unchanged. He is continued on IV solu Medrol 60 mg every 6 hours. The patient is seen today 06/25/2022 in follow-up on the selective care unit. He is currently sitting up in a chair at the bedside. Awake and alert in no acu te distress. Remains on AirVo high flow oxygen at 35 L and 45% FiO2. No worsening shortness of breath, cough or congestion. No IV fluids. He remains on IV Solu-Medrol. Continued on bronchodilators. Remains on oral diuretics. Progress note dated 06/26/2022. The patient is seen today in room 365. The patient has been weaned down to 8 L high flow oxygen. He is not receiving any IV fluids. His breathing seems very stable. He denies any specific complaints. Yesterday, he was on AIRVO. No new labs today other than a glucose of 147. Progress note dated 06/27/2022. The patient is seen today in room 365. Last night he developed atrial fibrillation with rapid ventricular response, and his saturations drop. He was placed back on AIRVO, with settings of 45 L/m, and an FiO2 of 55%. We saw him yesterday, he was on high flow nasal cannula at 8 L. He's not receiving any IV fluids. White count 10, hemoglobin 9.4, hematocrit 29.6, with a normal platelet count. Sodium 135, potassium 4, chlorides 98, CO2 35, BUN 23, and creatinine 0.68. Progress note dated 06/28/2022. The patient is seen today in room 365. He remains on AIRVO, at 45 L/m, with an FiO2 of 55%. His been on AIRVO since yesterday. Clinically, he feels stable. Does feel like his breathing is improved. No new labs today. The labs from yesterday have really been reviewed. Objective - Vital Signs Vital signs: Vital Signs Temp 98.2 F 06/28/22 12:00 Pulse 66 06/28/22 12:00 Resp 20 06/28/22 12:00 BP 117/73 06/28/22 12:00 Pulse Ox 94 L 06/28/22 12:12 FiO2 55 06/28/22 12:12 Intake & Output 06/27/22 06/28/22 06/28/22 18:59 06:59 18:59 Intake Total 354 240 Output Total 870 1025 Balance -516 -1025 240 Intake: Oral 354 240 Output: Urine 870 1025 Other: Voiding Method Urinal Urinal Urinal # Bowel Movements 1 - Exam No acute distress, oriented 3. No respiratory distress. Currently on AIRVO. HEENT examination is grossly unremarkable. Neck supple. Full range of motion. No adenopathy thyromegaly or neck vein distention. Cardiovascular examination reveals regular rhythm rate. S1-S2 normal. No S3 or S4. No discernible murmur noted. Heart sounds are distant. Heart rate 72 bpm. Lungs reveal scattered bilateral crackles. No wheezes. A few scattered rhonchi. Breath sounds equal bilaterally. Saturations are 94 %.. Abdomen soft bowel sounds are heard. No masses or tenderness. Extremities are intact. No cyanosis clubbing or edema. Skin is without rash or lesion. Neurologic examination is brief but nonfocal. - Labs CBC & Chem 7: 06/27/22 09:59 06/27/22 05:30 Labs: Abnormal Lab Results - Last 24 Hours (Table) 06/27/22 06/27/22 06/28/22 Range/Units 16:28 20:18 06:35 POC Glucose (mg/dL) 259 H 270 H 222 H (70-110) mg/dL 06/28/22 Range/Units 11:41 POC Glucose (mg/dL) 170 H (70-110) mg/dL Assessment and Plan Assessment: Acute on chronic hypoxic respiratory failure 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 New onset atrial fibrillation with RVR, resolved. Severe underlying COPD. Coronary artery disease. Mildly impaired systolic dysfunction with mild congestive heart failure. Benign essential hypertension. Schizophrenia. Bipolar disorder. Dyslipidemia. Obstructive sleep apnea syndrome. History of seizure disorder. Plan: Plan dated 06/26/2022. The patient was on AIRVO yesterday. Has been weaned down to 8 L high flow oxygen today. He looks very comfortable. Denies any significant shortness of breath. We had a discussion with his family yesterday. He has a very steroid responsive lesion. He probably will need treatment for 6-9 months. We will continue to follow make recommendations along the way. Labs, x-rays, and medications are reviewed. Prognosis is guarded. Plan dated 06/27/2022. Labs, x-rays, medications are all reviewed. He is currently on AIRVO. Yesterday, he was on 8 L high flow oxygen. Last night he developed atrial fibrillation with RVR. He was treated by cardiology. His heart rate is better controlled. We will continue to follow make recommendations along. Prognosis is guarded. I did mention to him that we would treat him with steroids for prolonged period of time, likely 6 months or more. Plan dated 06/28/2022. The patient remains on AIRVO. 2 days ago, he was on 8 L high flow. We will continue to follow make recommendations along the way. Labs, x-rays, and medications are reviewed. He continues on appropriate medications. We will continue to follow. Overall prognosis remains guarded. No additional recommendations at this time. Time with Patient: Less than 30
--- NOTE | 2022-06-28 14:59 | P.PN ---
Progress Note - Text Progress Note Date: 06/28/22 This is a 56-year-old patient, follows with Dr. Carson. Chronic stable medical conditions include GERD, hyperlipidemia, hypertension, seizure disorder, hypothyroid, obstructive sleep apnea not able to use CPAP, bipolar. Smoker- until April 2022. admitted from May 03 through May 142022: - bilateral pneumonia, COPD exacerbation. Received Zosyn. left the hospital - on 4 L of oxygen. now presented to hospital with increasing shortness of breath for last 3 days. Fever and chills. Congested cough. Clear sputum production. Appetite has been fair. Able to walk around some. Patient was placed on the BiPAP the ER. And eventually moved to the ICU. Sitting up in bed awake. Short of breath. Admitted to the hospital from May 24 through June 11. - bilateral pneumonia, acute hypoxic respiratory failure, COPD exacerbation. Had remained on AIRVO. Underwent lung biopsy. for chronic infiltrates. Was discharged on 5 L nasal cannula. Now admitted by my colleagues on the June 17 shortness of breath. Patient was in the garage trying to climb into the house 3 steps had taken his oxygen off and the car. He fell backwards hitting his head on the concrete floor. Did not pass out. [place] to have pneumonia. IV Zosyn. 06/19/2022: ICU. AIRVO. 60 L, 85%. Eating well. Had a bowel movement. Patient's daughter at the bedside. Slight cough. Short of breath. IV Zosyn. IV Solu-Medrol. Patient lung biopsy is come back showing: Organizing pneumonia with fibrotic features 06/20/2022: ICU. AIRVO. 55 L, 55%. Eating some. Reclining in bed. Short of breath. Discussed with Dr. Adler. DC IV Zosyn. Continue IV Solu-Medrol. Reminded about incentive spirometry. Will be moved out of the ICU. Increase Levemir for hyperglycemia. Cutback Lasix to 40 mg a day. 06/21/2022: ICU overflow. AIRVO 50/50. Short of breath. Eating. Had a bowel movement. Up in a recliner. On IV Solu-Medrol. 06/22/2022: AIRVO. Decreased to 50/40. Short of breath. Eating well. IV Solu-Medrol decreased yesterday to 60 mg every 6. 06/23/2022: AIRVO. 40/40. Dr. Adler increased IV Solu-Medrol to 60 mg every 6. Prostate patient went into atrial fibrillation with rapid ventricular rate. Was put on IV Cardizem drip. Later when back in sinus rhythm. This afternoon Cardizem discontinued. Verapamil SR 180 mg started. Eating well. Will be started on eliquis today 06/24/2022: AIRVO 35/35. IV Solu-Medrol 60 mg every 6. Eliquis. Remains in sinus rhythm. Up in a recliner. Discussed with patient. Will need DC to rehab 06/25/2022: Up in a chair. Changed over to high flow nasal cannula 8 L. IV Solu-Medrol 60 mg every 6. Eating well. 06/26/2022: In the recliner. Remains on 8 L nasal high flow cannula. Solu- Medrol 60 mg every 6. 06/27/2022: Last night patient felt his heart racing. When back in A. fib with rapid ventricular rate. Back no sinus rhythm. Lopressor 25 mg twice a day added by pulmonary. Back on AIRVO. 45/55. Eating well. 06/28/2022: Remains sinus rhythm. Up in a recliner. AIRVO. 45/55. Eating well. Reminded patient to keep using his incentive spirometry. High dose Solu- Medrol. Active Medications Hydrocodone Bitart/Acetaminophen (Hydrocodone/Apap 7.5-325mg 1 Each Tab) 1 each PO TID PRN PRN Reason: Pain Last Admin: 06/27/22 23:47 Dose: 1 each Albuterol Sulfate (Albuterol Nebulized 2.5 Mg/3 Ml) 2.5 mg INHALATION RT-QID [facility] Last Admin: 06/28/22 12:14 Dose: Not Given Albuterol Sulfate (Albuterol Nebulized 2.5 Mg/3 Ml) 2.5 mg INHALATION RT-Q4H PRN PRN Reason: Shortness Of Breath Or Wheezing Apixaban (Apixaban 5 Mg Tab) 5 mg PO BID [facility]; Protocol Last Admin: 06/28/22 08:56 Dose: 5 mg Atorvastatin Calcium (Atorvastatin 40 Mg Tab) 40 mg PO DAILY [facility] Last Admin: 06/28/22 08:56 Dose: 40 mg Budesonide/Formoterol Fumarate (Symbicort 160-4.5 Mcg Inhaler) 1 puff INHALATION RT-BID [facility] Last Admin: 06/28/22 08:26 Dose: 1 puff Clonazepam (Clonazepam 1 Mg Tab) 1 mg PO TID [facility] Last Admin: 06/28/22 08:56 Dose: 1 mg Donepezil HCl (Donepezil 5 Mg Tab) 5 mg PO [facility] Last Admin: 06/27/22 20:39 Dose: 5 mg Ezetimibe (Ezetimibe 10 Mg Tab) 10 mg PO DAILY [facility] Last Admin: 06/28/22 08:55 Dose: 10 mg Furosemide (Furosemide 40 Mg Tab) 40 mg PO Q48H [facility] Last Admin: 06/27/22 08:52 Dose: 40 mg Gabapentin (Gabapentin 400 Mg Cap) 400 mg PO TID [facility] Last Admin: 06/28/22 08:55 Dose: 400 mg Haloperidol (Haloperidol 2 Mg Tab) 2 mg PO DAILY [facility] Last Admin: 06/28/22 08:56 Dose: 2 mg Insulin Aspart (Insulin Aspart (Novolog) 100 Unit/Ml Vial) 0 unit SQ [facility]; Protocol Last Admin: 06/28/22 12:32 Dose: 2 unit Insulin Detemir (Insulin Detemir (Levemir) 100 Unit/Ml Syr) 38 unit SQ [facility] Last Admin: 06/27/22 20:39 Dose: 38 unit Ipratropium [place] (Ipratropium 0.5 Mg/2.5 Ml Nebu) 0.5 mg INHALATION RT-QID [facility] Last Admin: 06/28/22 12:14 Dose: Not Given Isosorbide Mononitrate (Isosorbide Mononitrate Er 30 Mg Tab.Er.24h) 30 mg PO DAILY [facility] Last Admin: 06/28/22 08:56 Dose: 30 mg Linagliptin (Linagliptin 5 Mg Tablet) 5 mg PO DAILY [facility] Last Admin: 06/28/22 08:56 Dose: 5 mg Loratadine (Loratadine 10 Mg Tab) 10 mg PO DAILY [facility] Last Admin: 06/28/22 08:56 Dose: 10 mg Metformin HCl (Metformin 500 Mg Tab) 500 mg PO BID [facility] Last Admin: 06/28/22 08:56 Dose: 500 mg Methylprednisolone Sodium Succinate (Methylprednisolone Sod Succi 125 Mg/2 Ml Vial) 60 mg IV Q6HR [facility] Last Admin: 06/28/22 12:31 Dose: 60 mg Metoprolol Tartrate (Metoprolol Tartrate 25 Mg Tab) 25 mg PO BID [facility] Last Admin: 06/28/22 08:55 Dose: 25 mg Miscellaneous Information (Potassium Replacement Protocol 1 Each Misc) 1 each MISCELLANE DAILY PRN; Protocol PRN Reason: Per Protocol Naloxone HCl (Naloxone 0.4 Mg/Ml 1 Ml Vial) 0.2 mg IV Q2M PRN PRN Reason: Opioid Reversal Ondansetron HCl (Ondansetron 4 Mg/2 Ml Vial) 4 mg IVP Q8HR PRN PRN Reason: Nausea And Vomiting Last Admin: 06/23/22 11:04 Dose: 4 mg Pantoprazole Sodium (Pantoprazole 40 Mg Tablet) 40 mg PO DAILY [facility] Last Admin: 06/28/22 08:56 Dose: 40 mg Sertraline HCl (Sertraline 100 Mg Tab) 200 mg PO DAILY [facility] Last Admin: 06/28/22 08:56 Dose: 200 mg Trazodone HCl (Trazodone Hcl 50 Mg Tab) 150 mg PO HS [facility] Last Admin: 06/27/22 20:38 Dose: 150 mg Verapamil HCl (Verapamil Sr 180 Mg Tablet.Er) 180 mg PO DAILY [facility] Last Admin: 06/28/22 08:56 Dose: 180 mg Past medical history to include: COPD, GERD, hypertension, hyperlipidemia, some cognitive impairment, seizure disorder, obstructive sleep apnea does not use CPAP, hypothyroid, LAP-BAND with reversal, bipolar Social history: Lives with ex-, Dottie. Smoked For 44 years stopped in April 2022 . 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 [facility]. Physical examination: VITAL SIGNS: 98.2, 66, 20, 11 7 x 73, 94% on AIRVO GENERAL:, Reclining in chair, short of breath EYES: Pupils equal. Conjunctiva normal. HEENT: External appearance of nose and ears normal, oral cavity grossly normal. NECK: JVD not raised; masses not palpable. HEART: First and second heart sounds are normal; no edema. LUNGS: Respiratory rate increased; decreased breath sounds , Basal fine crackles ABDOMEN: Soft, nontender, liver spleen not palpable, no masses palpable. PSYCH: Alert and oriented x3; mood and affect. Anxious. MUSCULOSKELETAL:No Clubbing/cyanosis;muscles-grossly intact INVESTIGATIONS, reviewed in the clinical context: 06/27/2022: White count and hemoglobin 9.4 platelets 235 06/23/2022: White count 7 hemoglobin 9.1 platelets 143 potassium 4 creatinine 0.71 TSH 0.138, free T4 0.54 06/20/2022: White count 5.3 hemoglobin 8.2 platelets 89 potassium 4.0 bicarbonate 43 BUN 40 creatinine 0.85 06/19/2022: White count 6.4 hemoglobin 8.1 platelets 81 potassium 3.7 bicarb 43 BUN 34 creatinine 0.87 Chest x-ray: biLateral infiltrates 2-D echocardiogram: [April 2022] EF 55-60%. Moderate LVH. Lung biopsy: [06/08/2022]: Organizing pneumonia with some fibrotic features/cicatrix Assessment and plan: -No pneumonia. Stopped IV Zosyn. Discussed with Dr. 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 IV Solu-Medrol. 60 mg every 6 -Acute hypoxic respiratory failure from pneumonia:: AIRVO. 45/55 -Sick euthyroid syndrome. Low TSH and free T4. - paroxysmal atrial fibrillation rapid ventricular rate. Overnight Back in sinus rhythm.: Verapamil SR 180 mg a day. Eliquis. Cardiology following. Lopressor 25 mg twice a day added - chronic hypoxic respiratory failure from COPD/organizing pneumonia Home on 5 L of oxygen -Hyperlipidemia Lipitor 40 mg a day -Hyperglycemia secondary to steroids.: Metformin, Levemir i 38 units. Follow Accu-Cheks -Mild cognitive impairment Aricept -Metabolic alkalosis from diuresis Change Lasix to 40 mg every 48 hours -Acute COPD exacerbation in a previous smoker: DuoNeb, Symbicort IV Solu-Medrol -GERD PPI -Bipolar disorder Zoloft 200, Klonopin 0.5 mg 3 times a day, trazodone 150 mg daily at bedtime, Haldol -Essential hypertension Verapamil SR 180 milligrams a day -Full code -Disposition: We will go to rehab IV Solu-Medrol 60 mg every 6. DuoNeb. Incentive spirometry. Eliquis AIRVO.
[2022-06-28 16:16] LABS: Glucose,Whole Blood 214 mg/dL (70-110)
[2022-06-28 20:07] LABS: Glucose,Whole Blood 230 mg/dL (70-110)
[2022-06-28] MEDS: INSULIN DETEMIR (LEVEMIR) 100 UNIT/ML SYR SQ SCH (21:00)
[2022-06-28] MEDS: traZODone HCL 50 MG TAB PO SCH (21:00)
[2022-06-28] MEDS: DONEPEZIL 5 MG TAB PO SCH (21:00)
[2022-06-29] MEDS: methylPREDNISolone SOD SUCCI 125 MG/2 ML VIAL IV SCH ×2 (00:35→06:25)
[2022-06-29] MEDS: INSULIN ASPART (NovoLOG) 100 UNIT/ML VIAL SQ SCH ×4 (06:23→20:42)
[2022-06-29 06:24] LABS: Glucose,Whole Blood 129 mg/dL (70-110)
[2022-06-29] MEDS: ALBUTEROL NEBULIZED 2.5 MG/3 ML INHALATION SCH ×4 (07:45→21:48)
[2022-06-29] MEDS: SYMBICORT 160-4.5 MCG INHALER INHALATION SCH ×2 (07:45→21:49)
[2022-06-29] MEDS: IPRATROPIUM 0.5 MG/2.5 ML NEBU INHALATION SCH ×4 (07:45→21:49)
[2022-06-29] MEDS: LINAGLIPTIN 5 MG TABLET PO SCH (08:55)
[2022-06-29] MEDS: PANTOPRAZOLE 40 MG TABLET PO SCH (08:55)
[2022-06-29] MEDS: GABAPENTIN 400 MG CAP PO SCH ×3 (08:55→22:19)
[2022-06-29] MEDS: ISOSORBIDE MONONITRATE ER 30 MG TAB.ER.24H PO SCH (08:55)
[2022-06-29] MEDS: SERTRALINE 100 MG TAB PO SCH (08:55)
[2022-06-29] MEDS: LORATADINE 10 MG TAB PO SCH (08:55)
[2022-06-29] MEDS: FUROSEMIDE 40 MG TAB PO SCH (08:55)
[2022-06-29] MEDS: APIXABAN 5 MG TAB PO SCH ×2 (08:55→20:41)
[2022-06-29] MEDS: METOPROLOL TARTRATE 25 MG TAB PO SCH ×2 (08:55→20:40)
[2022-06-29] MEDS: EZETIMIBE 10 MG TAB PO SCH (08:55)
[2022-06-29] MEDS: ATORVASTATIN 40 MG TAB PO SCH (08:55)
[2022-06-29] MEDS: VERAPAMIL SR 180 MG TABLET.ER PO SCH (08:56)
[2022-06-29 08:59] LABS: Anisocytosis Slight; HGB 9.3 gm/dL (13.0-17.5); Hypochromasia Marked; MCH 27.6 pg (25.0-35.0); MCV 91.9 fL (80.0-100.0); Mean Platelet Volume 8.9; Platelet Count 259 k/uL (150-450); Poikilocytosis Moderate; RBC 3.37 m/uL (4.30-5.90); RDW 16.9 % (11.5-15.5); WBC 9.5 k/uL (3.8-10.6)
[2022-06-29] MEDS: clonazePAM 1 MG TAB PO SCH ×3 (08:59→22:19)
[2022-06-29] MEDS: metFORMIN 500 MG TAB PO SCH ×2 (08:59→20:41)
[2022-06-29 09:22] LABS: Potassium 4.1 mmol/L (3.5-5.1)
[2022-06-29 09:23] LABS: African American GFR (CKD) >90 (>60 ml/min/1.73 sqM); Anion Gap 4 mmol/L; Blood Urea Nitrogen 25 mg/dL (9-20); Calcium 7.8 mg/dL (8.4-10.2); Carbon Dioxide 32 mmol/L (22-30); Chloride 101 mmol/L (98-107); Glucose 135 mg/dL (74-99); Non-African American GFR(CKD) >90 (>60 ml/min/1.73 sqM); Sodium 137 mmol/L (137-145)
--- NOTE | 2022-06-29 11:26 | P.PN ---
Subjective Progress Note Date: 06/29/22 Principal diagnosis: Shortness of breath. Reevaluated today on 06/19/2022, patient remains in the ICU, he is presently on airvo, at 60 L flow with 83% FiO2, and O2 saturation is marginal done in the low 90s. Clinically the patient is about the same. That report from the [facility] just came back, and is basically consistent with cicatricial organizing pneumonia with mostly deposition of fibrous bands and loose granulation tissue/organizing pneumonia and this is basically a variant of cryptogenic organizing pneumonia. And shouldn't have a favorable response with the use of high doses of steroids. Actually the description made pathologically really fits into our patient's situation as we have noticed significant improvement with high-dose steroids on this patient on the past few admissions. It is definitely a steroids responsive process. And I believe the patient would have to be maintained on relatively high-dose of steroids even upon discharge, I would strongly recommend no less than 50 mg of 40 mg of prednisone daily maintenance for a while today's labs are unremarkable including a CBC and basic metabolic profile as well as renal profile. reevaluated today on 06/20/2022, patient is doing better, his FiO2 is down to 60% and flow down to 50%, chest x-ray is showing slight improvement. Patient remains on relatively high-dose of steroids. I will likely transfer the patient out of the ICU to a regular medical floor today. In the meantime we'll continue steroids, bronchodilators, and I will discontinue antibiotics. Now that I have a tissue diagnosis that matches the clinical diagnoses/steroids responsive interstitial lung disease. Reevaluated today on 06/21/2022, continues to gradually improve, he was on 55% FiO2 and 55 L flow with O2 sat from 96%, I cut him down to 50% FiO2 and 15 L flow kept his O2 saturation in the low 90s. Patient desaturates easily but recovers nicely with any activity. Remains on high-dose steroids, remains on bronchodilators, and I believe the patient could be transferred out of the ICU to a regular medical floor today. CBC is basically unremarkable. Basic metabolic profile is normal renal profile is normal bicarb is 43 The patient is seen today 06/22/2022 in follow-up on the selective care unit. He is currently sitting up at the bedside. Awake and alert in no acute distress. He is maintaining good O2 saturations in the 90s on AirVo for high flow oxygen at 50 L and 60% FiO2. He is continued on Symbicort, albuterol, IV Solu-Medrol. Lovenox for DVT prophylaxis. The patient's today 06/23/2022 in follow-up on the selective care unit. He is awake and alert in no acute distress. He remains on AirVo high flow oxygen currently at 40 L and 40% FiO2. He denies any worsening shortness of breath, cough or congestion. Feeling better each day. Continued on IV Solu-Medrol. Blood cultures reveal no growth. White count 7.0. Hemoglobin 9.1. Platelets 143. Sodium 134. Bicarb 41. BUN 29. Creatinine 0.71. Glucose 215. Lovenox for DVT prophylaxis per The patient is seen today 06/24/2022 in follow-up on the selective care unit. He is currently sitting up in a chair at the bedside. Awake and alert in no acute distress. Remains on AirVo high flow oxygen at 35 L and 55% FiO2. No worsening shortness of breath, cough or congestion. Chest x-ray continues to show cardiomegaly with low lung volumes and is diffuse interstitial lung disease. Remains unchanged. He is continued on IV solu Medrol 60 mg every 6 hours. The patient is seen today 06/25/2022 in follow-up on the selective care unit. He is currently sitting up in a chair at the bedside. Awake and alert in no acu te distress. Remains on AirVo high flow oxygen at 35 L and 45% FiO2. No worsening shortness of breath, cough or congestion. No IV fluids. He remains on IV Solu-Medrol. Continued on bronchodilators. Remains on oral diuretics. Progress note dated 06/26/2022. The patient is seen today in room 365. The patient has been weaned down to 8 L high flow oxygen. He is not receiving any IV fluids. His breathing seems very stable. He denies any specific complaints. Yesterday, he was on AIRVO. No new labs today other than a glucose of 147. Progress note dated 06/27/2022. The patient is seen today in room 365. Last night he developed atrial fibrillation with rapid ventricular response, and his saturations drop. He was placed back on AIRVO, with settings of 45 L/m, and an FiO2 of 55%. We saw him yesterday, he was on high flow nasal cannula at 8 L. He's not receiving any IV fluids. White count 10, hemoglobin 9.4, hematocrit 29.6, with a normal platelet count. Sodium 135, potassium 4, chlorides 98, CO2 35, BUN 23, and creatinine 0.68. Progress note dated 06/28/2022. The patient is seen today in room 365. He remains on AIRVO, at 45 L/m, with an FiO2 of 55%. His been on AIRVO since yesterday. Clinically, he feels stable. Does feel like his breathing is improved. No new labs today. The labs from yesterday have really been reviewed. Progress note dated 06/29/2022. The patient is seen today in room 365. He remains on AIRVO, with settings of 45 L/m, and an FiO2 of 55%. The chest x-ray will be ordered today. According to the nurse, when he comes off of AIRVO, goes on high flow oxygen, he desaturated significantly. We did speak to the case packer about discharge to a specialized nursing facility/long-term acute care facility. There is nothing that we are currently doing for him here in the way of active intervention or treatment. White count 9.5, hemoglobin 9.3, hematocrit 31, and platelet count 2 59,000. Sodium 137, potassium 4.1, chlorides 101, CO2 32, BUN 25, and creatinine 0.56. Objective - Vital Signs Vital signs: Vital Signs Temp 98.1 F 06/29/22 08:00 Pulse 60 06/29/22 11:21 Resp 22 06/29/22 08:00 BP 121/80 06/29/22 08:00 Pulse Ox 94 L 06/29/22 08:00 FiO2 55 06/29/22 11:07 Intake & Output 06/28/22 06/29/22 06/29/22 18:59 06:59 18:59 Intake Total 360 118 Output Total 300 850 Balance 60 -850 118 Intake: Oral 360 118 Output: Urine 300 850 Other: Voiding Method Urinal Urinal Urinal # Bowel Movements 1 - Exam No acute distress, oriented 3. No respiratory distress. Currently on AIRVO. HEENT examination is grossly unremarkable. Neck supple. Full range of motion. No adenopathy thyromegaly or neck vein distention. Cardiovascular examination reveals regular rhythm rate. S1-S2 normal. No S3 or S4. No discernible murmur noted. Heart sounds are distant. Heart rate 60 bpm. Lungs reveal scattered bilateral crackles. No wheezes. A few scattered rhonchi. Breath sounds equal bilaterally. Saturations are 93 %.. Abdomen soft bowel sounds are heard. No masses or tenderness. Extremities are intact. No cyanosis clubbing or edema. Skin is without rash or lesion. Neurologic examination is brief but nonfocal. - Labs CBC & Chem 7: 06/29/22 07:39 06/29/22 07:39 Labs: Abnormal Lab Results - Last 24 Hours (Table) 06/28/22 06/28/22 06/28/22 Range/Units 11:41 16:14 20:06 RBC (4.30-5.90) m/uL Hgb (13.0-17.5) gm/dL Hct (39.0-53.0) % MCHC (31.0-37.0) g/dL RDW (11.5-15.5) % Carbon Dioxide (22-30) mmol/L BUN (9-20) mg/dL Creatinine (0.66-1.25) mg/dL Glucose (74-99) mg/dL POC Glucose (mg/dL) 170 H 214 H 230 H (70-110) mg/dL Calcium (8.4-10.2) mg/dL 06/29/22 06/29/22 06/29/22 Range/Units 06:22 07:39 07:39 RBC 3.37 L (4.30-5.90) m/uL Hgb 9.3 L (13.0-17.5) gm/dL Hct 31.0 L (39.0-53.0) % MCHC 30.0 L (31.0-37.0) g/dL RDW 16.9 H (11.5-15.5) % Carbon Dioxide 32 H (22-30) mmol/L BUN 25 H (9-20) mg/dL Creatinine 0.56 L (0.66-1.25) mg/dL Glucose 135 H (74-99) mg/dL POC Glucose (mg/dL) 129 H (70-110) mg/dL Calcium 7.8 L (8.4-10.2) mg/dL Assessment and Plan Assessment: Acute on chronic hypoxic respiratory failure 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 New onset atrial fibrillation with RVR, resolved. Severe underlying COPD. Coronary artery disease. Mildly impaired systolic dysfunction with mild congestive heart failure. Benign essential hypertension. Schizophrenia. Bipolar disorder. Dyslipidemia. Obstructive sleep apnea syndrome. History of seizure disorder. Plan: Plan dated 06/26/2022. The patient was on AIRVO yesterday. Has been weaned down to 8 L high flow oxygen today. He looks very comfortable. Denies any significant shortness of breath. We had a discussion with his family yesterday. He has a very steroid responsive lesion. He probably will need treatment for 6-9 months. We will con tinue to follow make recommendations along the way. Labs, x-rays, and medications are reviewed. Prognosis is guarded. Plan dated 06/27/2022. Labs, x-rays, medications are all reviewed. He is currently on AIRVO. Yesterday, he was on 8 L high flow oxygen. Last night he developed atrial fibrillation with RVR. He was treated by cardiology. His heart rate is better controlled. We will continue to follow make recommendations along. Prognosis is guarded. I did mention to him that we would treat him with steroids for prolonged period of time, likely 6 months or more. Plan dated 06/28/2022. The patient remains on AIRVO. 2 days ago, he was on 8 L high flow. We will continue to follow make recommendations along the way. Labs, x-rays, and medications are reviewed. He continues on appropriate medications. We will continue to follow. Overall prognosis remains guarded. No additional recommendations at this time. Plan dated 06/29/2022. We've ordered a chest x-ray on the patient. The patient remains on AIRVO. We will talk to the materials planner/production planner/case packer about a possible discharge to a specialized nursing facility or long-term acute care facility. Labs, x-rays, and medications are reviewed. We will continue to follow the patient and make recommendations. Prognosis is guarded. Time with Patient: Less than 30
[2022-06-29 11:32] LABS: Glucose,Whole Blood 222 mg/dL (70-110)
--- NOTE | 2022-06-29 11:41 | XR ---
EXAMINATION TYPE: XR chest 1V portable DATE OF EXAM: 06/29/2022 COMPARISON: 06/24/2022 HISTORY: Hypoxemia TECHNIQUE: Single frontal view of the chest is obtained. FINDINGS: Heart is enlarged there is diffuse bilateral infiltrates with small effusions. No pneumoth orax. Suspect underlying COPD and pulmonary fibrosis. IMPRESSION: 1. Diffuse bilateral infiltrates are stable likely superimposed on a background COPD and chronic inte rstitial lung disease or fibrosis.
--- NOTE | 2022-06-29 15:45 | P.PN ---
Progress Note - Text Progress Note Date: 06/29/22 This is a 56-year-old patient, follows with Dr. Carson. Chronic stable medical conditions include GERD, hyperlipidemia, hypertension, seizure disorder, hypothyroid, obstructive sleep apnea not able to use CPAP, bipolar. Smoker- until April 2022. admitted from May 03 through May 142022: - bilateral pneumonia, COPD exacerbation. Received Zosyn. left the hospital - on 4 L of oxygen. now presented to hospital with increasing shortness of breath for last 3 days. Fever and chills. Congested cough. Clear sputum production. Appetite has been fair. Able to walk around some. Patient was placed on the BiPAP the ER. And eventually moved to the ICU. Sitting up in bed awake. Short of breath. Admitted to the hospital from May 24 through June 11. - bilateral pneumonia, acute hypoxic respiratory failure, COPD exacerbation. Had remained on AIRVO. Underwent lung biopsy. for chronic infiltrates. Was discharged on 5 L nasal cannula. Now admitted by my colleagues on the June 17 shortness of breath. Patient was in the garage trying to climb into the house 3 steps had taken his oxygen off and the car. He fell backwards hitting his head on the concrete floor. Did not pass out. Kirwin to have pneumonia. IV Zosyn. 06/19/2022: ICU. AIRVO. 60 L, 85%. Eating well. Had a bowel movement. Patient's daughter at the bedside. Slight cough. Short of breath. IV Zosyn. IV Solu-Medrol. Patient lung biopsy is come back showing: Organizing pneumonia with fibrotic features 06/20/2022: ICU. AIRVO. 55 L, 55%. Eating some. Reclining in bed. Short of breath. Discussed with Dr. Adler. DC IV Zosyn. Continue IV Solu-Medrol. Reminded about incentive spirometry. Will be moved out of the ICU. Increase Levemir for hyperglycemia. Cutback Lasix to 40 mg a day. 06/21/2022: ICU overflow. AIRVO 50/50. Short of breath. Eating. Had a bowel movement. Up in a recliner. On IV Solu-Medrol. 06/22/2022: AIRVO. Decreased to 50/40. Short of breath. Eating well. IV Solu-Medrol decreased yesterday to 60 mg every 6. 06/23/2022: AIRVO. 40/40. Dr. Adler increased IV Solu-Medrol to 60 mg every 6. Prostate patient went into atrial fibrillation with rapid ventricular rate. Was put on IV Cardizem drip. Later when back in sinus rhythm. This afternoon Cardizem discontinued. Verapamil SR 180 mg started. Eating well. Will be started on eliquis today 06/24/2022: AIRVO 35/35. IV Solu-Medrol 60 mg every 6. Eliquis. Remains in sinus rhythm. Up in a recliner. Discussed with patient. Will need DC to rehab 06/25/2022: Up in a chair. Changed over to high flow nasal cannula 8 L. IV Solu-Medrol 60 mg every 6. Eating well. 06/26/2022: In the recliner. Remains on 8 L nasal high flow cannula. Solu- Medrol 60 mg every 6. 06/27/2022: Last night patient felt his heart racing. When back in A. fib with rapid ventricular rate. Back no sinus rhythm. Lopressor 25 mg twice a day added by pulmonary. Back on AIRVO. 45/55. Eating well. 06/28/2022: Remains sinus rhythm. Up in a recliner. AIRVO. 45/55. Eating well. Reminded patient to keep using his incentive spirometry. High dose Solu- Medrol. 06/29/2022: In a recliner. Remains on AIRVO. Cheryle 5/55. Some shortness of breath. Eating well. High dose IV Solu-Medrol. Active Medications Hydrocodone Bitart/Acetaminophen (Hydrocodone/Apap 7.5-325mg 1 Each Tab) 1 each PO TID PRN PRN Reason: Pain Last Admin: 06/27/22 23:47 Dose: 1 each Albuterol Sulfate (Albuterol Nebulized 2.5 Mg/3 Ml) 2.5 mg INHALATION RT-QID [facility] Last Admin: 06/29/22 15:32 Dose: 2.5 mg Albuterol Sulfate (Albuterol Nebulized 2.5 Mg/3 Ml) 2.5 mg INHALATION RT-Q4H PRN PRN Reason: Shortness Of Breath Or Wheezing Apixaban (Apixaban 5 Mg Tab) 5 mg PO BID [facility]ARY[facility]OU; Protocol Last Admin: 06/29/22 08:55 Dose: 5 mg Atorvastatin Calcium (Atorvastatin 40 Mg Tab) 40 mg PO DAILY [facility] Last Admin: 06/29/22 08:55 Dose: 40 mg Budesonide/Formoterol Fumarate (Symbicort 160-4.5 Mcg Inhaler) 1 puff INHALATION RT-BID [facility] Last Admin: 06/29/22 07:45 Dose: 1 puff Clonazepam (Clonazepam 1 Mg Tab) 1 mg PO TID [facility] Last Admin: 06/29/22 08:59 Dose: 1 mg Donepezil HCl (Donepezil 5 Mg Tab) 5 mg PO HS [facility] Last Admin: 06/28/22 21:00 Dose: 5 mg Ezetimibe (Ezetimibe 10 Mg Tab) 10 mg PO DAILY [facility] Last Admin: 06/29/22 08:55 Dose: 10 mg Furosemide (Furosemide 40 Mg Tab) 40 mg PO Q48H [facility] Last Admin: 06/29/22 08:55 Dose: 40 mg Gabapentin (Gabapentin 400 Mg Cap) 400 mg PO TID [facility] Last Admin: 06/29/22 08:55 Dose: 400 mg Haloperidol (Haloperidol 2 Mg Tab) 2 mg PO DAILY [facility] Last Admin: 06/29/22 08:56 Dose: 2 mg Insulin Aspart (Insulin Aspart (Novolog) 100 Unit/Ml Vial) 0 unit SQ [facility]; Protocol Last Admin: 06/29/22 11:35 Dose: 4 unit Insulin Detemir (Insulin Detemir (Levemir) 100 Unit/Ml Syr) 38 unit SQ [facility] Last Admin: 06/28/22 21:00 Dose: 38 unit Ipratropium Roslyn (Ipratropium 0.5 Mg/2.5 Ml Nebu) 0.5 mg INHALATION RT-QID [facility] Last Admin: 06/29/22 15:32 Dose: 0.5 mg Isosorbide Mononitrate (Isosorbide Mononitrate Er 30 Mg Tab.Er.24h) 30 mg PO DAILY [facility] Last Admin: 06/29/22 08:55 Dose: 30 mg Linagliptin (Linagliptin 5 Mg Tablet) 5 mg PO DAILY [facility] Last Admin: 06/29/22 08:55 Dose: 5 mg Loratadine (Loratadine 10 Mg Tab) 10 mg PO DAILY [facility] Last Admin: 06/29/22 08:55 Dose: 10 mg Metformin HCl (Metformin 500 Mg Tab) 500 mg PO BID [facility] Last Admin: 06/29/22 08:59 Dose: 500 mg Metoprolol Tartrate (Metoprolol Tartrate 25 Mg Tab) 25 mg PO BID [facility] Last Admin: 06/29/22 08:55 Dose: 25 mg Miscellaneous Information (Potassium Replacement Protocol 1 Each Misc) 1 each MISCELLANE DAILY PRN; Protocol PRN Reason: Per Protocol Naloxone HCl (Naloxone 0.4 Mg/Ml 1 Ml Vial) 0.2 mg IV Q2M PRN PRN Reason: Opioid Reversal Ondansetron HCl (Ondansetron 4 Mg/2 Ml Vial) 4 mg IVP Q8HR PRN PRN Reason: Nausea And Vomiting Last Admin: 06/23/22 11:04 Dose: 4 mg Pantoprazole Sodium (Pantoprazole 40 Mg Tablet) 40 mg PO DAILY [facility] Last Admin: 06/29/22 08:55 Dose: 40 mg Prednisone (Prednisone 20 Mg Tab) 60 mg PO DAILY [facility] Sertraline HCl (Sertraline 100 Mg Tab) 200 mg PO DAILY [facility] Last Admin: 06/29/22 08:55 Dose: 200 mg Trazodone HCl (Trazodone Hcl 50 Mg Tab) 150 mg PO HS [facility] Last Admin: 06/28/22 21:00 Dose: 150 mg Verapamil HCl (Verapamil Sr 180 Mg Tablet.Er) 180 mg PO DAILY [facility] Last Admin: 06/29/22 08:56 Dose: 180 mg Past medical history to include: COPD, GERD, hypertension, hyperlipidemia, some cognitive impairment, seizure disorder, obstructive sleep apnea does not use CPAP, hypothyroid, LAP-BAND with reversal, bipolar Social history: Lives with ex-, Dottie. Smoked For 44 years stopped in April 2022 . 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 [employer]. Physical examination: VITAL SIGNS: 98, 73, 23, 105/72, Airvo 45/55 GENERAL:, Reclining in chair, short of breath EYES: Pupils equal. Conjunctiva normal. HEENT: External appearance of nose and ears normal, oral cavity grossly normal. NECK: JVD not raised; masses not palpable. HEART: First and second heart sounds are normal; no edema. LUNGS: Respiratory rate increased; decreased breath sounds , Basal fine crackles ABDOMEN: Soft, nontender, liver spleen not palpable, no masses palpable. PSYCH: Alert and oriented x3; mood and affect. Anxious. MUSCULOSKELETAL:No Clubbing/cyanosis;muscles-grossly intact INVESTIGATIONS, reviewed in the clinical context: 06/29/2022: White count 9.5 hemoglobin 9.3 potassium 4.1 BUN 25 creatinine 0.56 06/27/2022: White count and hemoglobin 9.4 platelets 235 06/23/2022: White count 7 hemoglobin 9.1 platelets 143 potassium 4 creatinine 0.71 TSH 0.138, free T4 0.54 06/20/2022: White count 5.3 hemoglobin 8.2 platelets 89 potassium 4.0 bicarbonate 43 BUN 40 creatinine 0.85 06/19/2022: White count 6.4 hemoglobin 8.1 platelets 81 potassium 3.7 bicarb 43 BUN 34 creatinine 0.87 Chest x-ray: biLateral infiltrates 2-D echocardiogram: [April 2022] EF 55-60%. Moderate LVH. Lung biopsy: [06/08/2022]: Organizing pneumonia with some fibrotic features/cicatrix Assessment and plan: -No pneumonia. Stopped IV Zosyn. Discussed with Dr. 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 IV Solu-Medrol. 60 mg every 6 -Acute hypoxic respiratory failure from pneumonia:: Slow to respond AIRVO. 45/55 -Sick euthyroid syndrome. Low TSH and free T4. - paroxysmal atrial fibrillation rapid ventricular rate. Overnight Back in sinus rhythm.: Verapamil SR 180 mg a day. Eliquis. Cardiology following. Lopressor 25 mg twice a day added - chronic hypoxic respiratory failure from COPD/organizing pneumonia Home on 5 L of oxygen -Hyperlipidemia Lipitor 40 mg a day -Hyperglycemia secondary to steroids.: Metformin, Levemir i 38 units. Follow Accu-Cheks -Mild cognitive impairment Aricept -Metabolic alkalosis from diuresis Change Lasix to 40 mg every 48 hours -Acute COPD exacerbation in a previous smoker: DuoNeb, Symbicort IV Solu-Medrol -GERD PPI -Bipolar disorder Zoloft 200, Klonopin 0.5 mg 3 times a day, trazodone 150 mg daily at bedtime, Haldol -Essential hypertension Verapamil SR 180 milligrams a day -Full code -Disposition: We will go to rehab IV Solu-Medrol 60 mg every 6. DuoNeb. Incentive spirometry. Eliquis AIRVO. Discussed with patient
[2022-06-29 16:30] LABS: Glucose,Whole Blood 216 mg/dL (70-110)
[2022-06-29 20:18] LABS: Glucose,Whole Blood 216 mg/dL (70-110)
[2022-06-29] MEDS: traZODone HCL 50 MG TAB PO SCH (20:40)
[2022-06-29] MEDS: INSULIN DETEMIR (LEVEMIR) 100 UNIT/ML SYR SQ SCH (20:41)
[2022-06-29] MEDS: HYDROcodone/APAP 7.5-325MG 1 EACH TAB PO PRN (20:41)
[2022-06-29] MEDS: DONEPEZIL 5 MG TAB PO SCH (20:42)
[2022-06-30 06:18] LABS: Glucose,Whole Blood 63 mg/dL (70-110)
[2022-06-30 06:42] LABS: Glucose,Whole Blood 82 mg/dL (70-110)
[2022-06-30] MEDS: INSULIN ASPART (NovoLOG) 100 UNIT/ML VIAL SQ SCH ×4 (06:42→21:14)
[2022-06-30] MEDS: PANTOPRAZOLE 40 MG TABLET PO SCH (07:57)
[2022-06-30] MEDS: predniSONE 20 MG TAB PO SCH (07:57)
[2022-06-30] MEDS: LINAGLIPTIN 5 MG TABLET PO SCH (07:57)
[2022-06-30] MEDS: VERAPAMIL SR 180 MG TABLET.ER PO SCH (07:57)
[2022-06-30] MEDS: EZETIMIBE 10 MG TAB PO SCH (07:57)
[2022-06-30] MEDS: GABAPENTIN 400 MG CAP PO SCH ×3 (07:57→21:12)
[2022-06-30] MEDS: metFORMIN 500 MG TAB PO SCH ×2 (07:57→21:13)
[2022-06-30] MEDS: SERTRALINE 100 MG TAB PO SCH (07:57)
[2022-06-30] MEDS: APIXABAN 5 MG TAB PO SCH ×2 (07:57→21:13)
[2022-06-30] MEDS: ISOSORBIDE MONONITRATE ER 30 MG TAB.ER.24H PO SCH (07:58)
[2022-06-30] MEDS: ATORVASTATIN 40 MG TAB PO SCH (07:58)
[2022-06-30] MEDS: LORATADINE 10 MG TAB PO SCH (07:58)
[2022-06-30] MEDS: clonazePAM 1 MG TAB PO SCH ×3 (07:58→21:13)
[2022-06-30] MEDS: METOPROLOL TARTRATE 25 MG TAB PO SCH ×2 (07:58→21:13)
[2022-06-30] MEDS: SYMBICORT 160-4.5 MCG INHALER INHALATION SCH ×2 (08:32→21:19)
[2022-06-30] MEDS: IPRATROPIUM 0.5 MG/2.5 ML NEBU INHALATION SCH ×4 (08:32→21:19)
[2022-06-30] MEDS: ALBUTEROL NEBULIZED 2.5 MG/3 ML INHALATION SCH ×4 (08:32→21:19)
[2022-06-30 09:01] LABS: Anisocytosis Slight; Basophils % (A) 0 %; Eosinophils # (A) 0.1 k/uL (0-0.7); Eosinophils % (A) 1 %; HCT 31.5 % (39.0-53.0); Hypochromasia Moderate; Lymphocytes # (A) 0.8 k/uL (1.0-4.8); Lymphocytes % (A) 10 %; MCH 28.7 pg (25.0-35.0); MCHC 31.6 g/dL (31.0-37.0); MCV 90.8 fL (80.0-100.0); Mean Platelet Volume 7.8; Monocytes # (A) 0.8 k/uL (0-1.0); Monocytes % (A) 9 %; Neutrophils # (A) 6.7 k/uL (1.3-7.7); Neutrophils % (A) 79 %; Platelet Count 228 k/uL (150-450); Poikilocytosis Moderate; RBC 3.47 m/uL (4.30-5.90); RDW 16.8 % (11.5-15.5); WBC 8.5 k/uL (3.8-10.6)
[2022-06-30 09:03] LABS: African American GFR (CKD) >90 (>60 ml/min/1.73 sqM); Anion Gap 0 mmol/L; Blood Urea Nitrogen 23 mg/dL (9-20); Calcium 7.8 mg/dL (8.4-10.2); Carbon Dioxide 39 mmol/L (22-30); Chloride 97 mmol/L (98-107); Glucose 103 mg/dL (74-99); Non-African American GFR(CKD) >90 (>60 ml/min/1.73 sqM); Potassium 3.6 mmol/L (3.5-5.1); Sodium 136 mmol/L (137-145)
--- NOTE | 2022-06-30 11:55 | P.PN ---
Subjective Progress Note Date: 06/30/22 Principal diagnosis: Shortness of breath. Reevaluated today on 06/19/2022, patient remains in the ICU, he is presently on airvo, at 60 L flow with 83% FiO2, and O2 saturation is marginal done in the low 90s. Clinically the patient is about the same. That report from the [facility] just came back, and is basically consistent with cicatricial organizing pneumonia with mostly deposition of fibrous bands and loose granulation tissue/organizing pneumonia and this is basically a variant of cryptogenic organizing pneumonia. And shouldn't have a favorable response with the use of high doses of steroids. Actually the description made pathologically really fits into our patient's situation as we have noticed significant improvement with high-dose steroids on this patient on the past few admissions. It is definitely a steroids responsive process. And I believe the patient would have to be maintained on relatively high-dose of steroids even upon discharge, I would strongly recommend no less than 50 mg of 40 mg of prednisone daily maintenance for a while today's labs are unremarkable including a CBC and basic metabolic profile as well as renal profile. reevaluated today on 06/20/2022, patient is doing better, his FiO2 is down to 60% and flow down to 50%, chest x-ray is showing slight improvement. Patient remains on relatively high-dose of steroids. I will likely transfer the patient out of the ICU to a regular medical floor today. In the meantime we'll continue steroids, bronchodilators, and I will discontinue antibiotics. Now that I have a tissue diagnosis that matches the clinical diagnoses/steroids responsive interstitial lung disease. Reevaluated today on 06/21/2022, continues to gradually improve, he was on 55% FiO2 and 55 L flow with O2 sat from 96%, I cut him down to 50% FiO2 and 15 L flow kept his O2 saturation in the low 90s. Patient desaturates easily but recovers nicely with any activity. Remains on high-dose steroids, remains on bronchodilators, and I believe the patient could be transferred out of the ICU to a regular medical floor today. CBC is basically unremarkable. Basic metabolic profile is normal renal profile is normal bicarb is 43 The patient is seen today 06/22/2022 in follow-up on the selective care unit. He is currently sitting up at the bedside. Awake and alert in no acute distress. He is maintaining good O2 saturations in the 90s on AirVo for high flow oxygen at 50 L and 60% FiO2. He is continued on Symbicort, albuterol, IV Solu-Medrol. Lovenox for DVT prophylaxis. The patient's today 06/23/2022 in follow-up on the selective care unit. He is awake and alert in no acute distress. He remains on AirVo high flow oxygen currently at 40 L and 40% FiO2. He denies any worsening shortness of breath, cough or congestion. Feeling better each day. Continued on IV Solu-Medrol. Blood cultures reveal no growth. White count 7.0. Hemoglobin 9.1. Platelets 143. Sodium 134. Bicarb 41. BUN 29. Creatinine 0.71. Glucose 215. Lovenox for DVT prophylaxis per The patient is seen today 06/24/2022 in follow-up on the selective care unit. He is currently sitting up in a chair at the bedside. Awake and alert in no acute distress. Remains on AirVo high flow oxygen at 35 L and 55% FiO2. No worsening shortness of breath, cough or congestion. Chest x-ray continues to show cardiomegaly with low lung volumes and is diffuse interstitial lung disease. Remains unchanged. He is continued on IV solu Medrol 60 mg every 6 hours. The patient is seen today 06/25/2022 in follow-up on the selective care unit. He is currently sitting up in a chair at the bedside. Awake and alert in no acu te distress. Remains on AirVo high flow oxygen at 35 L and 45% FiO2. No worsening shortness of breath, cough or congestion. No IV fluids. He remains on IV Solu-Medrol. Continued on bronchodilators. Remains on oral diuretics. Progress note dated 06/26/2022. The patient is seen today in room 365. The patient has been weaned down to 8 L high flow oxygen. He is not receiving any IV fluids. His breathing seems very stable. He denies any specific complaints. Yesterday, he was on AIRVO. No new labs today other than a glucose of 147. Progress note dated 06/27/2022. The patient is seen today in room 365. Last night he developed atrial fibrillation with rapid ventricular response, and his saturations drop. He was placed back on AIRVO, with settings of 45 L/m, and an FiO2 of 55%. We saw him yesterday, he was on high flow nasal cannula at 8 L. He's not receiving any IV fluids. White count 10, hemoglobin 9.4, hematocrit 29.6, with a normal platelet count. Sodium 135, potassium 4, chlorides 98, CO2 35, BUN 23, and creatinine 0.68. Progress note dated 06/28/2022. The patient is seen today in room 365. He remains on AIRVO, at 45 L/m, with an FiO2 of 55%. His been on AIRVO since yesterday. Clinically, he feels stable. Does feel like his breathing is improved. No new labs today. The labs from yesterday have really been reviewed. Progress note dated 06/29/2022. The patient is seen today in room 365. He remains on AIRVO, with settings of 45 L/m, and an FiO2 of 55%. The chest x-ray will be ordered today. According to the nurse, when he comes off of AIRVO, goes on high flow oxygen, he desaturated significantly. We did speak to the nurse case manager about discharge to a specialized nursing facility/long-term acute care facility. There is nothing that we are currently doing for him here in the way of active intervention or treatment. White count 9.5, hemoglobin 9.3, hematocrit 31, and platelet count 2 59,000. Sodium 137, potassium 4.1, chlorides 101, CO2 32, BUN 25, and creatinine 0.56. Progress note dated 06/30/2022. The patient is seen today in room 365. He continues on AIRVO, at 40 L/m with an FiO2 of 48%. He's not receiving any IV fluids. Chest x-ray my opinion looks worse. He feels about the same or slightly worse. The patient may end up back in the intensive care unit on the ventilator. I'm hoping not. He continues on prednisone at 60 mg a day. We will check a pro-calcitonin level. The patient is not receiving any IV fluids. White count 8.5, hemoglobin 10, hematocrit 31.5, and platelet count is normal. Sodium 136, potassium 3.6, towards 97, CO2 39, BUN 23, creatinine 0.68. Objective - Vital Signs Vital signs: Vital Signs Temp 98.2 F 06/30/22 07:53 Pulse 72 06/30/22 11:03 Resp 20 06/30/22 11:03 BP 98/67 06/30/22 11:03 Pulse Ox 94 L 06/30/22 11:03 FiO2 50 06/30/22 11:03 Intake & Output 06/29/22 06/30/22 06/30/22 18:59 06:59 18:59 Intake Total 236 Output Total 970 1000 350 Balance -734 -1000 -350 Intake: Oral 236 Output: Urine 970 1000 350 Other: Voiding Method Urinal Urinal Urinal - Exam No acute distress, oriented 3. No respiratory distress. Currently on AIRVO. HEENT examination is grossly unremarkable. Neck supple. Full range of motion. No adenopathy thyromegaly or neck vein distention. Cardiovascular examination reveals regular rhythm rate. S1-S2 normal. No S3 or S4. No discernible murmur noted. Heart sounds are distant. Heart rate 72 bpm. Lungs reveal scattered bilateral crackles. No wheezes. A few scattered rhonchi. Breath sounds equal bilaterally. Saturations are 92 %.. Abdomen soft bowel sounds are heard. No masses or tenderness. Extremities are intact. No cyanosis clubbing or edema. Skin is without rash or lesion. Neurologic examination is brief but nonfocal. - Labs CBC & Chem 7: 06/30/22 08:22 06/30/22 08:22 Labs: Abnormal Lab Results - Last 24 Hours (Table) 06/29/22 06/29/22 06/30/22 Range/Units 16:29 20:16 06:16 RBC (4.30-5.90) m/uL Hgb (13.0-17.5) gm/dL Hct (39.0-53.0) % RDW (11.5-15.5) % Lymphocytes # (1.0-4.8) k/uL Sodium (137-145) mmol/L Chloride (98-107) mmol/L Carbon Dioxide (22-30) mmol/L BUN (9-20) mg/dL Glucose (74-99) mg/dL POC Glucose (mg/dL) 216 H 216 H 63 L (70-110) mg/dL Calcium (8.4-10.2) mg/dL 06/30/22 06/30/22 Range/Units 08:22 08:22 RBC 3.47 L (4.30-5.90) m/uL Hgb 10.0 L (13.0-17.5) gm/dL Hct 31.5 L (39.0-53.0) % RDW 16.8 H (11.5-15.5) % Lymphocytes # 0.8 L (1.0-4.8) k/uL Sodium 136 L (137-145) mmol/L Chloride 97 L (98-107) mmol/L Carbon Dioxide 39 H (22-30) mmol/L BUN 23 H (9-20) mg/dL Glucose 103 H (74-99) mg/dL POC Glucose (mg/dL) (70-110) mg/dL Calcium 7.8 L (8.4-10.2) mg/dL Assessment and Plan Assessment: Acute on chronic hypoxic respiratory failure 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 New onset atrial fibrillation with RVR, resolved. Severe underlying COPD. Coronary artery disease. Mildly impaired systolic dysfunction with mild congestive heart failure. Benign essential hypertension. Schizophrenia. Bipolar disorder. Dyslipidemia. Obstructive sleep apnea syndrome. History of seizure disorder. Plan: Plan dated 06/26/2022. The patient was on AIRVO yesterday. Has been weaned down to 8 L high flow oxyg en today. He looks very comfortable. Denies any significant shortness of breath. We had a discussion with his family yesterday. He has a very steroid responsive lesion. He probably will need treatment for 6-9 months. We will continue to follow make recommendations along the way. Labs, x-rays, and medications are reviewed. Prognosis is guarded. Plan dated 06/27/2022. Labs, x-rays, medications are all reviewed. He is currently on AIRVO. Yesterday, he was on 8 L high flow oxygen. Last night he developed atrial fibrillation with RVR. He was treated by cardiology. His heart rate is better controlled. We will continue to follow make recommendations along. Prognosis is guarded. I did mention to him that we would treat him with steroids for prolonged period of time, likely 6 months or more. Plan dated 06/28/2022. The patient remains on AIRVO. 2 days ago, he was on 8 L high flow. We will continue to follow make recommendations along the way. Labs, x-rays, and medications are reviewed. He continues on appropriate medications. We will continue to follow. Overall prognosis remains guarded. No additional recommendations at this time. Plan dated 06/29/2022. We've ordered a chest x-ray on the patient. The patient remains on AIRVO. We will talk to the principal planner/nurse case manager about a possible discharge to a specialized nursing facility or long-term acute care facility. Labs, x-rays, and medications are reviewed. We will continue to follow the patient and make recommendations. Prognosis is guarded. Plan dated 06/30/2022. The patient is doing about the same or slightly worse. His chest x-ray my opinion is worse. Recheck a pro-calcitonin level today. Labs, x-rays, medications are reviewed. He remains on prednisone 60 mg a day. The patient's overall prognosis remains guarded. He continues on AIRVO, with settings of 40 L/m, and an FiO2 of about 48%. The patient's overall prognosis remains guarded. We will continue to follow the patient and make recommendations where appropriate. Time with Patient: Less than 30
[2022-06-30 12:14] LABS: Glucose,Whole Blood 145 mg/dL (70-110)
--- NOTE | 2022-06-30 16:12 | P.PN ---
Subjective Progress Note Date: 06/30/22 This is a 56 year old male who is admitted for increased shortness of breathing, fever chills and cough. Patient is found to have organized pneumonia on imaging and most recent xray yesterday showing diffuse bilateral infiltrates and likely superimposed on background COPD and chronic interstitial lung disease. Chest xray appears worse than previous imaging. Patient is maintained currently on airvo 40/50 with oxygen saturation of 93%. Pulmonary is following closely and titrating. Patient remains off antibiotic therapy at this time. Continues on oral prednisone and oral lasix. Verapamil has been stopped today secondary to blood pressure in the 100s systolic. Labs reveal CO2 level of 39 today. Review of Systems Constitutional: Denied any fatigue denied any fever. Cardio vascular: denied any chest pain, palpitations Gastrointestinal: denied any nausea, vomiting, diarrhea Pulmonary: Denied any shortness of breath cough Neurologic denied any new focal deficits All inpatient medications were reviewed and appropriate changes in these medications as dictated in the interval history and assessment and plan. PHYSICAL EXAMINATION: GENERAL: The patient is alert and oriented x3, not in any acute distress. Well developed, well nourished. Currently on airvo. HEENT: Pupils are round and equally reacting to light. EOMI. No scleral icterus. No conjunctival pallor. Normocephalic, atraumatic. No pharyngeal erythema. No thyromegaly. CARDIOVASCULAR: S1 and S2 present. No murmurs, rubs, or gallops. PULMONARY: Chest is clear to auscultation, no wheezing or crackles. Diminished. ABDOMEN: Soft, nontender, nondistended, normoactive bowel sounds. No palpable organomegaly. MUSCULOSKELETAL: No joint swelling or deformity. EXTREMITIES: No cyanosis, clubbing, or pedal edema. NEUROLOGICAL: Gross neurological examination did not reveal any focal deficits. SKIN: No rashes. Assessment and Plan -No pneumonia. Stopped IV Zosyn. and patient continues off antibiotics -Acute exacerbation COPD and organizing pneumonia per lung biopsy on 06/08/2022. Continues on 60 mg of oral prednisone. -Acute hypoxic respiratory failure from pneumonia:: Slow to respond AIRVO weaned to 40/50. -Sick euthyroid syndrome. Low TSH and free T4. -Paroxysmal atrial fibrillation rapid ventricular rate. Overnight Back in sinus rhythm.: Eliquis. Cardiology following. Lopressor 25 mg twice a day added, verapamil being held secondary to low blood pressures. - chronic hypoxic respiratory failure from COPD/organizing pneumonia Home on 5 L of oxygen currently requiring airvo -Hyperlipidemia Lipitor 40 mg a day -Hyperglycemia secondary to steroids.: Metformin, Levemir i 38 units. Follow Accu-Cheks -Mild cognitive impairment Aricept -Metabolic alkalosis from diuresis Continue Lasix to 40 mg every 48 hours -Acute COPD exacerbation in a previous smoker: DuoNeb, Symbicort PO prednisone -GERD PPI -Bipolar disorder Zoloft 200, Klonopin 0.5 mg 3 times a day, trazodone 150 mg daily at bedtime, Haldol -Essential hypertension Verapamil being held -Full code -Disposition: We will go to rehab when medically stable Patient is continued to be monitored closely on stepdown unit on airvo. Pu lmonary following closely. Currently on oral prednisone 60 mg daily and to continue. Chest xray appears to be worsening. Further recommendations pending by pulmonary services. Procalcitonin level is ordered and pending. Social work on for discharge planning when medically stable. AM labs. The impression and plan of care has been dictated by Huong Mccullough, Nurse Practitioner as directed. Dr. Lina MD I have performed a history and physical examination and medical decision making of this patient, discussed the same with the dictator, and agree with the dictators assessment and plan as written, documented as a scribe. Based on total visit time, I have performed more than 50% of this visit. Objective - Vital Signs Vital signs: Vital Signs Temp 98.2 F 06/30/22 07:53 Pulse 68 06/30/22 15:35 Resp 20 06/30/22 11:03 BP 101/64 06/30/22 15:35 Pulse Ox 93 L 06/30/22 15:35 FiO2 50 06/30/22 15:35 Intake & Output 06/29/22 06/30/22 06/30/22 18:59 06:59 18:59 Intake Total 236 118 Output Total 970 1000 350 Balance -734 -1000 -232 Intake: Oral 236 118 Output: Urine 970 1000 350 Other: Voiding Method Urinal Urinal Urinal - Labs CBC & Chem 7: 06/30/22 08:22 06/30/22 08:22 Labs: Abnormal Lab Results - Last 24 Hours (Table) 06/29/22 06/29/22 06/30/22 Range/Units 16:29 20:16 06:16 RBC (4.30-5.90) m/uL Hgb (13.0-17.5) gm/dL Hct (39.0-53.0) % RDW (11.5-15.5) % Lymphocytes # (1.0-4.8) k/uL Sodium (137-145) mmol/L Chloride (98-107) mmol/L Carbon Dioxide (22-30) mmol/L BUN (9-20) mg/dL Glucose (74-99) mg/dL POC Glucose (mg/dL) 216 H 216 H 63 L (70-110) mg/dL Calcium (8.4-10.2) mg/dL 06/30/22 06/30/22 06/30/22 Range/Units 08:22 08:22 12:02 RBC 3.47 L (4.30-5.90) m/uL Hgb 10.0 L (13.0-17.5) gm/dL Hct 31.5 L (39.0-53.0) % RDW 16.8 H (11.5-15.5) % Lymphocytes # 0.8 L (1.0-4.8) k/uL Sodium 136 L (137-145) mmol/L Chloride 97 L (98-107) mmol/L Carbon Dioxide 39 H (22-30) mmol/L BUN 23 H (9-20) mg/dL Glucose 103 H (74-99) mg/dL POC Glucose (mg/dL) 145 H (70-110) mg/dL Calcium 7.8 L (8.4-10.2) mg/dL Assessment and Plan Time with Patient: Less than 30
[2022-06-30 17:09] LABS: Glucose,Whole Blood 191 mg/dL (70-110)
[2022-06-30] MEDS: HYDROcodone/APAP 7.5-325MG 1 EACH TAB PO PRN (19:48)
[2022-06-30 20:10] LABS: Glucose,Whole Blood 234 mg/dL (70-110)
[2022-06-30] MEDS: traZODone HCL 50 MG TAB PO SCH (21:13)
[2022-06-30] MEDS: INSULIN DETEMIR (LEVEMIR) 100 UNIT/ML SYR SQ SCH (21:13)
[2022-06-30] MEDS: DONEPEZIL 5 MG TAB PO SCH (21:13)
[2022-07-01 02:08] LABS: African American GFR (CKD) >90 (>60 ml/min/1.73 sqM); Anion Gap 2 mmol/L; Blood Urea Nitrogen 25 mg/dL (9-20); Calcium 7.8 mg/dL (8.4-10.2); Carbon Dioxide 38 mmol/L (22-30); Chloride 97 mmol/L (98-107); Glucose 158 mg/dL (74-99); Magnesium 2.2 mg/dL (1.6-2.3); Non-African American GFR(CKD) >90 (>60 ml/min/1.73 sqM); Potassium 4.2 mmol/L (3.5-5.1); Sodium 137 mmol/L (137-145)
[2022-07-01 06:20] LABS: Glucose,Whole Blood 98 mg/dL (70-110)
[2022-07-01] MEDS: INSULIN ASPART (NovoLOG) 100 UNIT/ML VIAL SQ SCH ×4 (06:23→21:20)
[2022-07-01 08:19] LABS: African American GFR (CKD) >90 (>60 ml/min/1.73 sqM); Anion Gap 0 mmol/L; Blood Urea Nitrogen 23 mg/dL (9-20); Calcium 7.8 mg/dL (8.4-10.2); Carbon Dioxide 37 mmol/L (22-30); Chloride 100 mmol/L (98-107); Glucose 77 mg/dL (74-99); Non-African American GFR(CKD) >90 (>60 ml/min/1.73 sqM); Potassium 3.8 mmol/L (3.5-5.1); Sodium 137 mmol/L (137-145)
[2022-07-01] MEDS: ALBUTEROL NEBULIZED 2.5 MG/3 ML INHALATION SCH ×4 (08:32→20:09)
[2022-07-01] MEDS: SYMBICORT 160-4.5 MCG INHALER INHALATION SCH ×2 (08:32→20:10)
[2022-07-01] MEDS: IPRATROPIUM 0.5 MG/2.5 ML NEBU INHALATION SCH ×4 (08:33→20:10)
[2022-07-01] MEDS: METOPROLOL TARTRATE 25 MG TAB PO SCH ×2 (09:04→21:15)
[2022-07-01] MEDS: ATORVASTATIN 40 MG TAB PO SCH (09:04)
[2022-07-01] MEDS: GABAPENTIN 400 MG CAP PO SCH ×3 (09:04→21:16)
[2022-07-01] MEDS: LORATADINE 10 MG TAB PO SCH (09:04)
[2022-07-01] MEDS: PANTOPRAZOLE 40 MG TABLET PO SCH (09:04)
[2022-07-01] MEDS: ISOSORBIDE MONONITRATE ER 30 MG TAB.ER.24H PO SCH (09:04)
[2022-07-01] MEDS: clonazePAM 1 MG TAB PO SCH ×3 (09:04→21:15)
[2022-07-01] MEDS: LINAGLIPTIN 5 MG TABLET PO SCH (09:04)
[2022-07-01] MEDS: EZETIMIBE 10 MG TAB PO SCH (09:05)
[2022-07-01] MEDS: FUROSEMIDE 40 MG TAB PO SCH (09:05)
[2022-07-01] MEDS: predniSONE 20 MG TAB PO SCH (09:05)
[2022-07-01] MEDS: SERTRALINE 100 MG TAB PO SCH (09:05)
[2022-07-01] MEDS: APIXABAN 5 MG TAB PO SCH ×2 (09:05→21:15)
[2022-07-01] MEDS: metFORMIN 500 MG TAB PO SCH ×2 (09:10→21:15)
[2022-07-01] MEDS: HYDROcodone/APAP 7.5-325MG 1 EACH TAB PO PRN ×2 (11:16→21:15)
[2022-07-01 11:38] LABS: Glucose,Whole Blood 62 mg/dL (70-110)
--- NOTE | 2022-07-01 11:41 | P.PN ---
Subjective Progress Note Date: 07/01/22 Principal diagnosis: Shortness of breath. Reevaluated today on 06/19/2022, patient remains in the ICU, he is presently on airvo, at 60 L flow with 83% FiO2, and O2 saturation is marginal done in the low 90s. Clinically the patient is about the same. That report from the [facility] just came back, and is basically consistent with cicatricial organizing pneumonia with mostly deposition of fibrous bands and loose granulation tissue/organizing pneumonia and this is basically a variant of cryptogenic organizing pneumonia. And shouldn't have a favorable response with the use of high doses of steroids. Actually the description made pathologically really fits into our patient's situation as we have noticed significant improvement with high-dose steroids on this patient on the past few admissions. It is definitely a steroids responsive process. And I believe the patient would have to be maintained on relatively high-dose of steroids even upon discharge, I would strongly recommend no less than 50 mg of 40 mg of prednisone daily maintenance for a while today's labs are unremarkable including a CBC and basic metabolic profile as well as renal profile. reevaluated today on 06/20/2022, patient is doing better, his FiO2 is down to 60% and flow down to 50%, chest x-ray is showing slight improvement. Patient remains on relatively high-dose of steroids. I will likely transfer the patient out of the ICU to a regular medical floor today. In the meantime we'll continue steroids, bronchodilators, and I will discontinue antibiotics. Now that I have a tissue diagnosis that matches the clinical diagnoses/steroids responsive interstitial lung disease. Reevaluated today on 06/21/2022, continues to gradually improve, he was on 55% FiO2 and 55 L flow with O2 sat from 96%, I cut him down to 50% FiO2 and 15 L flow kept his O2 saturation in the low 90s. Patient desaturates easily but recovers nicely with any activity. Remains on high-dose steroids, remains on bronchodilators, and I believe the patient could be transferred out of the ICU to a regular medical floor today. CBC is basically unremarkable. Basic metabolic profile is normal renal profile is normal bicarb is 43 The patient is seen today 06/22/2022 in follow-up on the selective care unit. He is currently sitting up at the bedside. Awake and alert in no acute distress. He is maintaining good O2 saturations in the 90s on AirVo for high flow oxygen at 50 L and 60% FiO2. He is continued on Symbicort, albuterol, IV Solu-Medrol. Lovenox for DVT prophylaxis. The patient's today 06/23/2022 in follow-up on the selective care unit. He is awake and alert in no acute distress. He remains on AirVo high flow oxygen currently at 40 L and 40% FiO2. He denies any worsening shortness of breath, cough or congestion. Feeling better each day. Continued on IV Solu-Medrol. Blood cultures reveal no growth. White count 7.0. Hemoglobin 9.1. Platelets 143. Sodium 134. Bicarb 41. BUN 29. Creatinine 0.71. Glucose 215. Lovenox for DVT prophylaxis per The patient is seen today 06/24/2022 in follow-up on the selective care unit. He is currently sitting up in a chair at the bedside. Awake and alert in no acute distress. Remains on AirVo high flow oxygen at 35 L and 55% FiO2. No worsening shortness of breath, cough or congestion. Chest x-ray continues to show cardiomegaly with low lung volumes and is diffuse interstitial lung disease. Remains unchanged. He is continued on IV solu Medrol 60 mg every 6 hours. The patient is seen today 06/25/2022 in follow-up on the selective care unit. He is currently sitting up in a chair at the bedside. Awake and alert in no acu te distress. Remains on AirVo high flow oxygen at 35 L and 45% FiO2. No worsening shortness of breath, cough or congestion. No IV fluids. He remains on IV Solu-Medrol. Continued on bronchodilators. Remains on oral diuretics. Progress note dated 06/26/2022. The patient is seen today in room 365. The patient has been weaned down to 8 L high flow oxygen. He is not receiving any IV fluids. His breathing seems very stable. He denies any specific complaints. Yesterday, he was on AIRVO. No new labs today other than a glucose of 147. Progress note dated 06/27/2022. The patient is seen today in room 365. Last night he developed atrial fibrillation with rapid ventricular response, and his saturations drop. He was placed back on AIRVO, with settings of 45 L/m, and an FiO2 of 55%. We saw him yesterday, he was on high flow nasal cannula at 8 L. He's not receiving any IV fluids. White count 10, hemoglobin 9.4, hematocrit 29.6, with a normal platelet count. Sodium 135, potassium 4, chlorides 98, CO2 35, BUN 23, and creatinine 0.68. Progress note dated 06/28/2022. The patient is seen today in room 365. He remains on AIRVO, at 45 L/m, with an FiO2 of 55%. His been on AIRVO since yesterday. Clinically, he feels stable. Does feel like his breathing is improved. No new labs today. The labs from yesterday have really been reviewed. Progress note dated 06/29/2022. The patient is seen today in room 365. He remains on AIRVO, with settings of 45 L/m, and an FiO2 of 55%. The chest x-ray will be ordered today. According to the nurse, when he comes off of AIRVO, goes on high flow oxygen, he desaturated significantly. We did speak to the oil field caser about discharge to a specialized nursing facility/long-term acute care facility. There is nothing that we are currently doing for him here in the way of active intervention or treatment. White count 9.5, hemoglobin 9.3, hematocrit 31, and platelet count 2 59,000. Sodium 137, potassium 4.1, chlorides 101, CO2 32, BUN 25, and creatinine 0.56. Progress note dated 06/30/2022. The patient is seen today in room 365. He continues on AIRVO, at 40 L/m with an FiO2 of 48%. He's not receiving any IV fluids. Chest x-ray my opinion looks worse. He feels about the same or slightly worse. The patient may end up back in the intensive care unit on the ventilator. I'm hoping not. He continues on prednisone at 60 mg a day. We will check a pro-calcitonin level. The patient is not receiving any IV fluids. White count 8.5, hemoglobin 10, hematocrit 31.5, and platelet count is normal. Sodium 136, potassium 3.6, towards 97, CO2 39, BUN 23, creatinine 0.68. Progress note dated 07/01/2022. The patient is seen today in room 365. He remains on AIRVO. His current settings include 40 L/m, with an FiO2 of 42%. We have asked the nurses, to contact respiratory, and consider high flow oxygen. A couple days ago, he was on 8 L. He seemed to take a turn for the worse when he developed atrial fibrillation/RVR. Sodium 137, potassium 3.8, chlorides 100, CO2 37 BUN 23, and creatinine 0.55. Calcium 7.8. Blood cultures are negative. Chest x-ray from the , has been reviewed. Objective - Vital Signs Vital signs: Vital Signs Temp 98.6 F 07/01/22 07:56 Pulse 67 07/01/22 11:14 Resp 19 07/01/22 07:57 BP 105/67 07/01/22 11:14 Pulse Ox 93 L 07/01/22 11:14 FiO2 43 07/01/22 11:14 Intake & Output 06/30/22 07/01/22 07/01/22 18:59 06:59 18:59 Intake Total 118 100 540 Output Total 350 450 375 Balance -232 -350 165 Intake: Oral 118 100 540 Output: Urine 350 450 375 Stool 0 Other: Voiding Method Urinal Urinal Urinal # Voids 0 # Bowel Movements 0 1 - Exam No acute distress, oriented 3. No respiratory distress. Currently on AIRVO. HEENT examination is grossly unremarkable. Neck supple. Full range of motion. No adenopathy thyromegaly or neck vein distention. Cardiovascular examination reveals regular rhythm rate. S1-S2 normal. No S3 or S4. No discernible murmur noted. Heart sounds are distant. Heart rate 76 bpm. Lungs reveal scattered bilateral crackles. No wheezes. A few scattered rhonchi. Breath sounds equal bilaterally. Saturations are 93 %. Abdomen soft bowel sounds are heard. No masses or tenderness. Extremities are intact. No cyanosis clubbing or edema. Skin is without rash or lesion. Neurologic examination is brief but nonfocal. - Labs CBC & Chem 7: 06/30/22 08:22 07/01/22 07:22 Labs: Abnormal Lab Results - Last 24 Hours (Table) 06/30/22 06/30/22 06/30/22 Range/Units 08:22 12:02 16:47 Chloride (98-107) mmol/L Carbon Dioxide (22-30) mmol/L BUN (9-20) mg/dL Creatinine (0.66-1.25) mg/dL Glucose (74-99) mg/dL POC Glucose (mg/dL) 145 H 191 H (70-110) mg/dL Calcium (8.4-10.2) mg/dL Procalcitonin 0.16 H (0.02-0.09) ng/mL 06/30/22 07/01/22 07/01/22 Range/Units 20:09 01:27 07:22 Chloride 97 L (98-107) mmol/L Carbon Dioxide 38 H 37 H (22-30) mmol/L BUN 25 H 23 H (9-20) mg/dL Creatinine 0.55 L (0.66-1.25) mg/dL Glucose 158 H (74-99) mg/dL POC Glucose (mg/dL) 234 H (70-110) mg/dL Calcium 7.8 L 7.8 L (8.4-10.2) mg/dL Procalcitonin (0.02-0.09) ng/mL Assessment and Plan Assessment: Acute on chronic hypoxic respiratory failure 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 New onset atrial fibrillation with RVR, resolved. Severe underlying COPD. Coronary artery disease. Mildly impaired systolic dysfunction with mild congestive heart failure. Benign essential hypertension. Schizophrenia. Bipolar disorder. Dyslipidemia. Obstructive sleep apnea syndrome. History of seizure disorder. Plan: Plan dated 06/26/2022. The patient was on AIRVO yesterday. Has been weaned down to 8 L high flow oxygen today. He looks very comfortable. Denies any significant shortness of breath. We had a discussion with his family yesterday. He has a very steroid responsive lesion. He probably will need treatment for 6-9 months. We will continue to follow make recommendations along the way. Labs, x-rays, and medications are reviewed. Prognosis is guarded. Plan dated 06/27/2022. Labs, x-rays, medications are all reviewed. He is currently on AIRVO. Yesterday, he was on 8 L high flow oxygen. Last night he developed atrial fibrillation with RVR. He was treated by cardiology. His heart rate is better controlled. We will continue to follow make recommendations along. Prognosis is guarded. I did mention to him that we would treat him with steroids for prolonged period of time, likely 6 months or more. Plan dated 06/28/2022. The patient remains on AIRVO. 2 days ago, he was on 8 L high flow. We will continue to follow make recommendations along the way. Labs, x-rays, and med ications are reviewed. He continues on appropriate medications. We will continue to follow. Overall prognosis remains guarded. No additional recommendations at this time. Plan dated 06/29/2022. We've ordered a chest x-ray on the patient. The patient remains on AIRVO. We will talk to the program planner/oil field caser about a possible discharge to a specialized nursing facility or long-term acute care facility. Labs, x-rays, and medications are reviewed. We will continue to follow the patient and make recommendations. Prognosis is guarded. Plan dated 06/30/2022. The patient is doing about the same or slightly worse. His chest x-ray my opinion is worse. Recheck a pro-calcitonin level today. Labs, x-rays, medications are reviewed. He remains on prednisone 60 mg a day. The patient's overall prognosis remains guarded. He continues on AIRVO, with settings of 40 L/m, and an FiO2 of about 48%. The patient's overall prognosis remains guarded. We will continue to follow the patient and make recommendations where appropriate. Plan dated 07/01/2022. The patient appears to be about the same today. His ocular requirements have actually come down. He continues on AIRVO, at 40 L/m, and FiO2 of about 42%. We will trial him on some high flow nasal O2 today. Labs, x-rays, medications are reviewed. He remains on prednisone at 60 mg a day. We are hopeful for discharge, early this week, to either a specialized nursing facility or long- term acute care facility. Prognosis is certainly guarded. Time with Patient: Less than 30
[2022-07-01 11:56] LABS: Glucose,Whole Blood 64 mg/dL (70-110)
[2022-07-01 12:12] LABS: Glucose,Whole Blood 78 mg/dL (70-110)
--- NOTE | 2022-07-01 12:31 | P.PN ---
Subjective Progress Note Date: 07/01/22 This is a 56 year old male who is admitted for increased shortness of breathing, fever chills and cough. Patient is found to have organized pneumonia on imaging and most recent xray yesterday showing diffuse bilateral infiltrates and likely superimposed on background COPD and chronic interstitial lung disease. Chest xray appears worse than previous imaging. Patient is maintained currently on airvo 40/50 with oxygen saturation of 93%. Pulmonary is following closely and titrating. Patient remains off antibiotic therapy at this time. Continues on oral prednisone and oral lasix. Verapamil has been stopped today secondary to blood pressure in the 100s systolic. Labs reveal CO2 level of 39 today. 07/01/2022 Patient is evaluated today on stepdown unit. Resting in bed. He continues on airvo weaned to 40/43. He reports no shortness of breath at rest. However, he states he is unable to sit up in chair secondary to increased shortness of breath. Nursing reports patient desaturates with activity. There is stage 2 sacral ulcer with optifoam dressing in place. Patient on oral prednisone. Blood glucose now 77 today and will decrease insulin. Review of Systems Constitutional: Denied any fatigue denied any fever. Cardio vascular: denied any chest pain, palpitations Gastrointestinal: denied any nausea, vomiting, diarrhea Pulmonary: reports exertional shortness of breath cough Neurologic denied any new focal deficits All inpatient medications were reviewed and appropriate changes in these medicat ions as dictated in the interval history and assessment and plan. PHYSICAL EXAMINATION: GENERAL: The patient is alert and oriented x3, not in any acute distress. Well developed, well nourished. Currently on airvo. HEENT: Pupils are round and equally reacting to light. EOMI. No scleral icterus. No conjunctival pallor. Normocephalic, atraumatic. No pharyngeal erythema. No thyromegaly. CARDIOVASCULAR: S1 and S2 present. No murmurs, rubs, or gallops. PULMONARY: Chest is clear to auscultation, no wheezing or crackles. Diminished. ABDOMEN: Soft, nontender, nondistended, normoactive bowel sounds. No palpable organomegaly. MUSCULOSKELETAL: No joint swelling or deformity. EXTREMITIES: No cyanosis, clubbing, or pedal edema. NEUROLOGICAL: Gross neurological examination did not reveal any focal deficits. Diffuse weakness. SKIN: No rashes. Assessment and Plan -No pneumonia. Stopped IV Zosyn. and patient continues off antibiotics -Acute exacerbation COPD and organizing pneumonia per lung biopsy on 06/08/2022. Continues on 60 mg of oral prednisone. -Acute hypoxic respiratory failure from pneumonia:: Slow to respond AIRVO being weaned by pulmonary -Sick euthyroid syndrome. Low TSH and free T4. -Paroxysmal atrial fibrillation rapid ventricular rate. Overnight Back in sinus rhythm.: Eliquis. Cardiology following. Lopressor 25 mg twice a day added, verapamil being held secondary to low blood pressures. - chronic hypoxic respiratory failure from COPD/organizing pneumonia Home on 5 L of oxygen currently requiring airvo -Hyperlipidemia Lipitor 40 mg a day -Hyperglycemia secondary to steroids.: Blood glucose improved and patient on oral steroids -Mild cognitive impairment Aricept -Metabolic alkalosis from diuresis Continue Lasix to 40 mg every 48 hours -Acute COPD exacerbation in a previous smoker: DuoNeb, Symbicort PO prednisone -GERD PPI -Bipolar disorder Zoloft 200, Klonopin 0.5 mg 3 times a day, trazodone 150 mg daily at bedtime, Haldol -Essential hypertension Verapamil being held -Full code -Disposition: We will go to rehab when medically stable Patient is continued to be monitored closely on stepdown unit on airvo. Pulmonary following closely. Currently on oral prednisone 60 mg daily and to continue. Chest xray appears to be worsening. Further recommendations pending by pulmonary services. Airvo is being weaned, and insulin will be decreased today. Social work on for discharge planning when medically stable. AM labs. The impression and plan of care has been dictated by Huong Mccullough Nurse Practitioner as directed. Dr. Lina MD I have performed a history and physical examination and medical decision making of this patient, discussed the same with the dictator, and agree with the dictators assessment and plan as written, documented as a scribe. Based on total visit time, I have performed more than 50% of this visit. Objective - Vital Signs Vital signs: Vital Signs Temp 98.6 F 07/01/22 07:56 Pulse 84 07/01/22 11:58 Resp 19 07/01/22 07:57 BP 105/67 07/01/22 11:14 Pulse Ox 91 L 07/01/22 11:43 FiO2 43 07/01/22 11:43 Intake & Output 03/25/23 03/26/23 03/26/23 18:59 06:59 18:59 Intake Total 118 100 540 Output Total 350 450 375 Balance -232 -350 165 Intake: Oral 118 100 540 Output: Urine 350 450 375 Stool 0 Other: Voiding Method Urinal Urinal Urinal # Voids 0 # Bowel Movements 0 1 - Labs CBC & Chem 7: 06/30/22 08:22 07/01/22 07:22 Labs: Abnormal Lab Results - Last 24 Hours (Table) 06/30/22 06/30/22 06/30/22 Range/Units 08:22 16:47 20:09 Chloride (98-107) mmol/L Carbon Dioxide (22-30) mmol/L BUN (9-20) mg/dL Creatinine (0.66-1.25) mg/dL Glucose (74-99) mg/dL POC Glucose (mg/dL) 191 H 234 H (70-110) mg/dL Calcium (8.4-10.2) mg/dL Procalcitonin 0.16 H (0.02-0.09) ng/mL 07/01/22 07/01/22 07/01/22 Range/Units 01:27 07:22 11:37 Chloride 97 L (98-107) mmol/L Carbon Dioxide 38 H 37 H (22-30) mmol/L BUN 25 H 23 H (9-20) mg/dL Creatinine 0.55 L (0.66-1.25) mg/dL Glucose 158 H (74-99) mg/dL POC Glucose (mg/dL) 62 L (70-110) mg/dL Calcium 7.8 L 7.8 L (8.4-10.2) mg/dL Procalcitonin (0.02-0.09) ng/mL 07/01/22 Range/Units 11:55 Chloride (98-107) mmol/L Carbon Dioxide (22-30) mmol/L BUN (9-20) mg/dL Creatinine (0.66-1.25) mg/dL Glucose (74-99) mg/dL POC Glucose (mg/dL) 64 L (70-110) mg/dL Calcium (8.4-10.2) mg/dL Procalcitonin (0.02-0.09) ng/mL Assessment and Plan Time with Patient: Less than 30
[2022-07-01 14:48] LABS: Glucose,Whole Blood 232 mg/dL (70-110)
[2022-07-01 16:28] LABS: Glucose,Whole Blood 235 mg/dL (70-110)
[2022-07-01 20:20] LABS: Glucose,Whole Blood 236 mg/dL (70-110)
[2022-07-01] MEDS ORDERED: INSULIN DETEMIR (LEVEMIR) 100 UNIT/ML SYR SQ SCH (21:00)
[2022-07-01] MEDS: traZODone HCL 50 MG TAB PO SCH (21:15)
[2022-07-01] MEDS: DONEPEZIL 5 MG TAB PO SCH (21:20)
[2022-07-02] MEDS ORDERED: VERAPAMIL 40 MG TAB PO STA (01:19)
[2022-07-02 01:58] LABS: Glucose,Whole Blood 254 mg/dL (70-110)
[2022-07-02 06:13] LABS: Glucose,Whole Blood 176 mg/dL (70-110)
[2022-07-02] MEDS: INSULIN ASPART (NovoLOG) 100 UNIT/ML VIAL SQ SCH ×4 (06:50→21:12)
[2022-07-02 07:47] LABS: African American GFR (CKD) >90 (>60 ml/min/1.73 sqM); Anion Gap 3 mmol/L; Blood Urea Nitrogen 21 mg/dL (9-20); Carbon Dioxide 36 mmol/L (22-30); Chloride 98 mmol/L (98-107); Glucose 164 mg/dL (74-99); Non-African American GFR(CKD) >90 (>60 ml/min/1.73 sqM); Potassium 3.8 mmol/L (3.5-5.1); Sodium 137 mmol/L (137-145)
[2022-07-02] MEDS: METOPROLOL TARTRATE 25 MG TAB PO SCH ×2 (08:05→21:13)
[2022-07-02] MEDS: LINAGLIPTIN 5 MG TABLET PO SCH (08:05)
[2022-07-02] MEDS: EZETIMIBE 10 MG TAB PO SCH (08:05)
[2022-07-02] MEDS: GABAPENTIN 400 MG CAP PO SCH ×3 (08:06→21:12)
[2022-07-02] MEDS: APIXABAN 5 MG TAB PO SCH ×2 (08:06→21:13)
[2022-07-02] MEDS: SERTRALINE 100 MG TAB PO SCH (08:06)
[2022-07-02] MEDS: ISOSORBIDE MONONITRATE ER 30 MG TAB.ER.24H PO SCH (08:06)
[2022-07-02] MEDS: PANTOPRAZOLE 40 MG TABLET PO SCH (08:06)
[2022-07-02] MEDS: predniSONE 20 MG TAB PO SCH (08:06)
[2022-07-02] MEDS: LORATADINE 10 MG TAB PO SCH (08:06)
[2022-07-02] MEDS: ATORVASTATIN 40 MG TAB PO SCH (08:06)
[2022-07-02] MEDS: clonazePAM 1 MG TAB PO SCH ×3 (08:06→21:13)
[2022-07-02] MEDS: metFORMIN 500 MG TAB PO SCH ×2 (08:07→21:13)
[2022-07-02] MEDS: SYMBICORT 160-4.5 MCG INHALER INHALATION SCH ×2 (08:24→20:54)
[2022-07-02] MEDS: IPRATROPIUM 0.5 MG/2.5 ML NEBU INHALATION SCH ×4 (08:24→20:54)
[2022-07-02] MEDS: ALBUTEROL NEBULIZED 2.5 MG/3 ML INHALATION SCH ×4 (08:34→20:54)
[2022-07-02] MEDS ORDERED: VERAPAMIL SR 120 MG TABLET.ER PO SCH (09:00)
[2022-07-02 11:38] LABS: Glucose,Whole Blood 219 mg/dL (70-110)
[2022-07-02] MEDS: HYDROcodone/APAP 7.5-325MG 1 EACH TAB PO PRN ×2 (11:56→21:12)
[2022-07-02 13:07] VITALS: BMI 28.5
--- NOTE | 2022-07-02 13:21 | P.PN ---
Subjective Progress Note Date: 07/02/22 On today's evaluation of the 2002, the patient is being seen for a follow- up. The patient had an open lung biopsy and this was done weeks back in the diagnosis was a variant of cryptogenic organizing pneumonia which has been essentially steroid responsive. Based on that, the patient was kept on steroids and the patient is currently on 60 mg of prednisone on a daily basis. The patient remains on high flow oxygen. He is on 40 L with an FiO2 of 40%. No new complaints is resting comfortably in bed. He does have some coarse crackles in lung bases bilaterally. Denies having any active chest pain. No altered mentation. Is quite comfortable and he has developed some cushingoid features related to systemic steroid use. The patient's blood work from today shows a BUN of 21 with a creatinine of 0.59 and sodium levels of 137. The glucose is up to 19. The patient also is on Symbicort as maintenance 2 puffs twice a day, albuterol neb blotchiness 4 times a day, Levemir insulin 8 units along with NovoLog on his face. Coverage and the patient is also Lasix 40 mg by mouth every 48 hours. No other major issues for now. His tolerating his diet. No chest pain. No angina. No palpitation. He is being considered for LTAC transfer. Objective - Vital Signs Vital signs: Vital Signs Temp 98.3 F 07/02/22 08:00 Pulse 76 07/02/22 10:03 Resp 18 07/02/22 10:03 BP 99/68 07/02/22 08:00 Pulse Ox 96 07/02/22 08:26 FiO2 40 07/02/22 08:26 Intake & Output 07/01/22 07/02/22 07/02/22 18:59 06:59 18:59 Intake Total 780 118 Output Total 1375 1025 271 Balance -595 -1025 -153 Intake: Oral 780 118 Output: Urine 1375 1025 270 Stool 1 Other: Voiding Method Urinal Urinal Urinal # Voids 1 # Bowel Movements 1 - Exam No acute distress, oriented 3. No respiratory distress. Currently on AIRVO. The patient is currently on 4 L an FiO2 of 40% HEENT examination is grossly unremarkable. Neck supple. Full range of motion. No adenopathy thyromegaly or neck vein distention. Cardiovascular examination reveals regular rhythm rate. S1-S2 normal. No S3 or S4. No discernible murmur noted. Lungs reveal scattered bilateral crackles. No wheezes. A few scattered rhonchi. Breath sounds equal bilaterally. The crackles and coarse lung bases bilaterally and the patient diminished breath on the lung bases Abdomen soft bowel sounds are heard. No masses or tenderness. Extremities are intact. No cyanosis clubbing or edema. Skin is without rash or lesion. Neurologic examination is brief but nonfocal. - Labs CBC & Chem 7: 06/30/22 08:22 07/02/22 07:04 Labs: Abnormal Lab Results - Last 24 Hours (Table) 07/01/22 07/01/22 07/01/22 Range/Units 11:37 11:55 14:45 Carbon Dioxide (22-30) mmol/L BUN (9-20) mg/dL Creatinine (0.66-1.25) mg/dL Glucose (74-99) mg/dL POC Glucose (mg/dL) 62 L 64 L 232 H (70-110) mg/dL Calcium (8.4-10.2) mg/dL 07/01/22 07/01/22 07/02/22 Range/Units 16:27 20:19 01:56 Carbon Dioxide (22-30) mmol/L BUN (9-20) mg/dL Creatinine (0.66-1.25) mg/dL Glucose (74-99) mg/dL POC Glucose (mg/dL) 235 H 236 H 254 H (70-110) mg/dL Calcium (8.4-10.2) mg/dL 07/02/22 07/02/22 Range/Units 06:11 07:04 Carbon Dioxide 36 H (22-30) mmol/L BUN 21 H (9-20) mg/dL Creatinine 0.59 L (0.66-1.25) mg/dL Glucose 164 H (74-99) mg/dL POC Glucose (mg/dL) 176 H (70-110) mg/dL Calcium 8.0 L (8.4-10.2) mg/dL Assessment and Plan Plan: Acute on chronic hypoxic respiratory failure 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 The patient is currently on prednisone 60 mg by mouth daily. This been gradual improvement in his condition and the patient remains on 40 L with an FiO2 of 40% shortness of breath secondary to above New onset atrial fibrillation with RVR, resolved. Severe underlying COPD. Coronary artery disease. Mildly impaired systolic dysfunction with mild congestive heart failure. Benign essential hypertension. Schizophrenia. Bipolar disorder. Dyslipidemia. Obstructive sleep apnea syndrome. History of seizure disorder. Plan: Continue same treatment plan Continue prednisone high dose Monitor oxygenation and gradually wean down FiO2 to maintain a pulse ox above 90% The most recent chest x-ray from 06/29/2022 showed diffuse bilateral pulmonary infiltrates, stable Continue Symbicort 2 puffs twice a day Continue IV DuoNeb about treatments 4 times a day continue Lasix 40 mg every 48 hours Continue Levemir insulin for blood sugar control Continue anticoagulation with Eliquis 5 mg by mouth twice a day Long-term prognosis poor and the patient will likely go to LTAC
--- NOTE | 2022-07-02 13:26 | P.PN ---
Subjective Progress Note Date: 07/02/22 HISTORY OF PRESENT ILLNESS: Patient is a pleasant 56-year-old male with significant past medical history of COPD, GERD, hypertension, hyperlipidemia, seizure disorder, diabetes, hypothyroid, obstructive sleep apnea, bipolar, former smoker quit 04/30 he was admitted 06/16/22 for respiratory distress. Cardiology was consulted for new onset atrial fibrillation with RVR overnight. He follows with Dr. Ayon in the office. It is questionable if he has had atrial fibrillation in the past. He reports that he couldn't feel his heart racing but had mild chest pain last night, denies any dizziness, shortness of breath is stable on high flow nasal cannula oxygen. He has had multiple admissions in the past 3 months for pneumonia, COPD exacerbation, respiratory failure. He had an echo 05/24/22 that showed an EF of 5560 percent. He had a heart catheterization 09/06/21 that showed calcified vessel with diffuse atherosclerotic plaque and a large dominant right coronary artery and a moderate area of stenosis in mid LAD. Hgb A1C is 8.4. 06/24 Patient sitting up, out of bed in chair. Denies any chest pain or palpitations. Shortness of breath is unchanged. Remains in sinus rhythm. 06/27/2022 Cardiology was reconsulted overnight due to patient going back into atrial fibrillation. The patient was started on metoprolol succinate 25 mg daily and he received a dose overnight. He since converted to sinus mechanism and is maintaining sinus mechanism this morning. He denies any chest pain or pressure. Vital signs are stable. 07/02 We have been asked to reevaluate the patient regarding A. fib with RVR. Approximately midnight, patient went into A. fib with RVR at 120 -130 bpm. Patient is now in a sinus rhythm running in the 70s and 80s. Patient was started on verapamil 120 mg daily and patient received his first dose this morning at 1 AM. Patient denies having any chest pain. PHYSICAL EXAM: VITAL SIGNS: Reviewed. GENERAL: Well-developed in no acute distress. NECK: Supple. No JVD or thyromegaly LUNGS: Respirations even and unlabored. Lungs diminished to auscultation bilaterally. HEART: Regular rate and rhythm. S1 and S2 heard. EXTREMITIES: Normal range of motion. No clubbing or cyanosis. Peripheral pulses intact. No lower extremity edema ASSESSMENT: Pneumonia Acute hypoxic respiratory failure, on AIRVO New onset paroxysmal atrial fibrillation with RVR, currently in sinus rhythm Hypertension Hyperlipidemia COPD Diabetes PLAN: Continue current cardiac medications Continue metoprolol tartrate 25 mg twice a day, verapamil 120 mg daily Continue telemetry monitoring Further recommendations pending patient's course Nurse practitioner note has been reviewed by physician. Signing provider agrees with the documented findings, assessment, and plan of care. Objective - Vital Signs Vital signs: Vital Signs Temp 98.3 F 07/02/22 08:00 Pulse 90 07/02/22 08:26 Resp 18 07/02/22 08:00 BP 99/68 07/02/22 08:00 Pulse Ox 96 07/02/22 08:26 FiO2 40 07/02/22 08:26 Intake & Output 07/01/22 07/02/22 07/02/22 18:59 06:59 18:59 Intake Total 780 118 Output Total 1375 1025 271 Balance -595 -1025 -153 Intake: Oral 780 118 Output: Urine 1375 1025 270 Stool 1 Other: Voiding Method Urinal Urinal # Voids 1 # Bowel Movements 1 - Labs CBC & Chem 7: 06/30/22 08:22 07/02/22 07:04 Labs: Abnormal Lab Results - Last 24 Hours (Table) 07/01/22 07/01/22 07/01/22 Range/Units 11:37 11:55 14:45 Carbon Dioxide (22-30) mmol/L BUN (9-20) mg/dL Creatinine (0.66-1.25) mg/dL Glucose (74-99) mg/dL POC Glucose (mg/dL) 62 L 64 L 232 H (70-110) mg/dL Calcium (8.4-10.2) mg/dL 07/01/22 07/01/22 07/02/22 Range/Units 16:27 20:19 01:56 Carbon Dioxide (22-30) mmol/L BUN (9-20) mg/dL Creatinine (0.66-1.25) mg/dL Glucose (74-99) mg/dL POC Glucose (mg/dL) 235 H 236 H 254 H (70-110) mg/dL Calcium (8.4-10.2) mg/dL 07/02/22 07/02/22 Range/Units 06:11 07:04 Carbon Dioxide 36 H (22-30) mmol/L BUN 21 H (9-20) mg/dL Creatinine 0.59 L (0.66-1.25) mg/dL Glucose 164 H (74-99) mg/dL POC Glucose (mg/dL) 176 H (70-110) mg/dL Calcium 8.0 L (8.4-10.2) mg/dL
[2022-07-02 16:32] LABS: Glucose,Whole Blood 291 mg/dL (70-110)
[2022-07-02 20:28] LABS: Glucose,Whole Blood 253 mg/dL (70-110)
[2022-07-02] MEDS: INSULIN DETEMIR (LEVEMIR) 100 UNIT/ML SYR SQ SCH (21:11)
[2022-07-02] MEDS: traZODone HCL 50 MG TAB PO SCH (21:13)
[2022-07-02] MEDS: DONEPEZIL 5 MG TAB PO SCH (21:50)
[2022-07-02 23:53] VITALS: RESP 18
[2022-07-03 06:25] LABS: Glucose,Whole Blood 154 mg/dL (70-110)
[2022-07-03] MEDS: INSULIN ASPART (NovoLOG) 100 UNIT/ML VIAL SQ SCH ×2 (06:36→12:18)
[2022-07-03] MEDS: ALBUTEROL NEBULIZED 2.5 MG/3 ML INHALATION SCH ×3 (07:52→15:15)
[2022-07-03] MEDS: SYMBICORT 160-4.5 MCG INHALER INHALATION SCH (07:52)
[2022-07-03] MEDS: IPRATROPIUM 0.5 MG/2.5 ML NEBU INHALATION SCH ×3 (07:52→15:15)
[2022-07-03] MEDS ORDERED: VERAPAMIL SR 120 MG TABLET.ER PO SCH (09:00)
[2022-07-03] MEDS: LINAGLIPTIN 5 MG TABLET PO SCH (09:17)
[2022-07-03] MEDS: ATORVASTATIN 40 MG TAB PO SCH (09:17)
[2022-07-03] MEDS: APIXABAN 5 MG TAB PO SCH (09:17)
[2022-07-03] MEDS: GABAPENTIN 400 MG CAP PO SCH (09:17)
[2022-07-03] MEDS: EZETIMIBE 10 MG TAB PO SCH (09:17)
[2022-07-03] MEDS: predniSONE 20 MG TAB PO SCH (09:17)
[2022-07-03] MEDS: ISOSORBIDE MONONITRATE ER 30 MG TAB.ER.24H PO SCH (09:17)
[2022-07-03] MEDS: clonazePAM 1 MG TAB PO SCH (09:17)
[2022-07-03] MEDS: FUROSEMIDE 40 MG TAB PO SCH (09:17)
[2022-07-03] MEDS: SERTRALINE 100 MG TAB PO SCH (09:17)
[2022-07-03] MEDS: metFORMIN 500 MG TAB PO SCH (09:17)
[2022-07-03] MEDS: LORATADINE 10 MG TAB PO SCH (09:17)
[2022-07-03] MEDS: PANTOPRAZOLE 40 MG TABLET PO SCH (09:17)
[2022-07-03] MEDS: INSULIN DETEMIR (LEVEMIR) 100 UNIT/ML SYR SQ SCH (09:18)
--- NOTE | 2022-07-03 09:45 | P.PN ---
Subjective Progress Note Date: 07/02/22 This is a 56 year old male who is admitted for increased shortness of breathing, fever chills and cough. Patient is found to have organized pneumonia on imaging and most recent xray yesterday showing diffuse bilateral infiltrates and likely superimposed on background COPD and chronic interstitial lung disease. Chest xray appears worse than previous imaging. Patient is maintained currently on airvo 40/50 with oxygen saturation of 93%. Pulmonary is following closely and titrating. Patient remains off antibiotic therapy at this time. Continues on oral prednisone and oral lasix. Verapamil has been stopped today secondary to blood pressure in the 100s systolic. Labs reveal CO2 level of 39 today. 07/01/2022 Patient is evaluated today on stepdown unit. Resting in bed. He continues on airvo weaned to 40/43. He reports no shortness of breath at rest. However, he states he is unable to sit up in chair secondary to increased shortness of breath. Nursing reports patient desaturates with activity. There is stage 2 sacral ulcer with optifoam dressing in place. Patient on oral prednisone. Blood glucose now 77 today and will decrease insulin. 07/02/2022 Patient remains on bedrest and continues on airvo 40/50. Continues on oral prednisone. Continues on bedrest unable to tolerate much activity. No acute events overnight. Labs today showing sodium 137, potassium 3.8, glucose 160. Review of Systems Constitutional: Denied any fatigue denied any fever. Cardio vascular: denied any chest pain, palpitations Gastrointestinal: denied any nausea, vomiting, diarrhea Pulmonary: reports exertional shortness of breath cough Neurologic denied any new focal deficits All inpatient medications were reviewed and appropriate changes in these medications as dictated in the interval history and assessment and plan. PHYSICAL EXAMINATION: GENERAL: The patient is alert and oriented x3, not in any acute distress. Well developed, well nourished. Currently on airvo. HEENT: Pupils are round and equally reacting to light. EOMI. No scleral icterus. No conjunctival pallor. Normocephalic, atraumatic. No pharyngeal erythema. No thyromegaly. CARDIOVASCULAR: S1 and S2 present. No murmurs, rubs, or gallops. PULMONARY: Chest is clear to auscultation, no wheezing or crackles. Diminished. ABDOMEN: Soft, nontender, nondistended, normoactive bowel sounds. No palpable organomegaly. MUSCULOSKELETAL: No joint swelling or deformity. EXTREMITIES: No cyanosis, clubbing, or pedal edema. NEUROLOGICAL: Gross neurological examination did not reveal any focal deficits. Diffuse weakness. SKIN: No rashes. Assessment and Plan -No pneumonia. Stopped IV Zosyn. and patient continues off antibiotics -Acute exacerbation COPD and organizing pneumonia per lung biopsy on 06/08/2022. Continues on 60 mg of oral prednisone. -Acute hypoxic respiratory failure from pneumonia:: Slow to respond AIRVO being weaned by pulmonary -Sick euthyroid syndrome. Low TSH and free T4. -Paroxysmal atrial fibrillation rapid ventricular rate. Overnight Back in sinus rhythm.: Eliquis. Cardiology following. Lopressor 25 mg twice a day added, verapamil being held secondary to low blood pressures. - chronic hypoxic respiratory failure from COPD/organizing pneumonia Home on 5 L of oxygen currently requiring airvo -Hyperlipidemia Lipitor 40 mg a day -Hyperglycemia secondary to steroids.: Blood glucose improved and patient on oral steroids -Mild cognitive impairment Aricept -Metabolic alkalosis from diuresis Continue Lasix to 40 mg every 48 hours -Acute COPD exacerbation in a previous smoker: DuoNeb, Symbicort PO prednisone -GERD PPI -Bipolar disorder Zoloft 200, Klonopin 0.5 mg 3 times a day, trazodone 150 mg daily at bedtime, Haldol -Essential hypertension Verapamil being held -Full code -Disposition: We will go to rehab when medically stable Patient is continued to be monitored closely on stepdown unit on airvo. Pulmonary following closely. Currently on oral prednisone 60 mg daily and to continue.Further recommendations pending by pulmonary services. Social work on for discharge planning when medically stable. AM labs. The impression and plan of care has been dictated by Huong Mccullough Nurse Practitioner as directed. Dr. Lina MD I have performed a history and physical examination and medical decision making of this patient, discussed the same with the dictator, and agree with the dictators assessment and plan as written, documented as a scribe. Based on total visit time, I have performed more than 50% of this visit. Objective - Vital Signs Vital signs: Vital Signs Temp 98.3 F 07/02/22 08:00 Pulse 84 07/02/22 11:51 Resp 18 07/02/22 11:50 BP 109/71 07/02/22 11:50 Pulse Ox 95 07/02/22 11:50 FiO2 50 07/02/22 11:50 Intake & Output 07/01/22 07/02/22 07/02/22 18:59 06:59 18:59 Intake Total 780 236 Output Total 1375 1025 271 Balance -595 -1025 -35 Weight 93 kg Intake: Oral 780 236 Output: Urine 1375 1025 270 Stool 1 Other: Voiding Method Urinal Urinal Urinal # Voids 1 # Bowel Movements 1 - Labs CBC & Chem 7: 06/30/22 08:22 07/02/22 07:04 Labs: Abnormal Lab Results - Last 24 Hours (Table) 07/01/22 07/01/22 07/01/22 Range/Units 14:45 16:27 20:19 Carbon Dioxide (22-30) mmol/L BUN (9-20) mg/dL Creatinine (0.66-1.25) mg/dL Glucose (74-99) mg/dL POC Glucose (mg/dL) 232 H 235 H 236 H (70-110) mg/dL Calcium (8.4-10.2) mg/dL 07/02/22 07/02/22 07/02/22 Range/Units 01:56 06:11 07:04 Carbon Dioxide 36 H (22-30) mmol/L BUN 21 H (9-20) mg/dL Creatinine 0.59 L (0.66-1.25) mg/dL Glucose 164 H (74-99) mg/dL POC Glucose (mg/dL) 254 H 176 H (70-110) mg/dL Calcium 8.0 L (8.4-10.2) mg/dL 07/02/22 Range/Units 11:37 Carbon Dioxide (22-30) mmol/L BUN (9-20) mg/dL Creatinine (0.66-1.25) mg/dL Glucose (74-99) mg/dL POC Glucose (mg/dL) 219 H (70-110) mg/dL Calcium (8.4-10.2) mg/dL Assessment and Plan Time with Patient: Less than 30
--- NOTE | 2022-07-03 10:03 | P.PN ---
Subjective Progress Note Date: 07/03/22 On today's evaluation of the 2002, the patient is being seen for a follow- up. The patient had an open lung biopsy and this was done weeks back in the diagnosis was a variant of cryptogenic organizing pneumonia which has been essentially steroid responsive. Based on that, the patient was kept on steroids and the patient is currently on 60 mg of prednisone on a daily basis. The patient remains on high flow oxygen. He is on 40 L with an FiO2 of 40%. No new complaints is resting comfortably in bed. He does have some coarse crackles in lung bases bilaterally. Denies having any active chest pain. No altered mentation. Is quite comfortable and he has developed some cushingoid features related to systemic steroid use. The patient's blood work from today shows a BUN of 21 with a creatinine of 0.59 and sodium levels of 137. The glucose is up to 19. The patient also is on Symbicort as maintenance 2 puffs twice a day, albuterol neb blotchiness 4 times a day, Levemir insulin 8 units along with NovoLog on his face. Coverage and the patient is also Lasix 40 mg by mouth every 48 hours. No other major issues for now. His tolerating his diet. No chest pain. No angina. No palpitation. He is being considered for LTAC transfer. The 2022, the patient is being seen for a follow-up. His condition is stable for now. No new complaints. He remains on high flow oxygen with 40 L with an FiO2 of 50%. The plan is to transfer this patient to LTAC today. He remains on prednisone 60 mg by mouth daily. He may in intensive from a BiPAP on BEING transferred to LTAC. Rest of the medication remains unchanged. He is taking Lasix 40 mg every other day. Objective - Vital Signs Vital signs: Vital Signs Temp 98.0 F 07/03/22 04:20 Pulse 80 07/03/22 08:10 Resp 18 07/03/22 04:20 BP 110/75 07/03/22 04:20 Pulse Ox 97 07/03/22 07:55 FiO2 50 07/03/22 07:55 Intake & Output 07/02/22 07/03/22 07/03/22 18:59 06:59 18:59 Intake Total 476 180 Output Total 571 500 350 Balance -95 -500 -170 Weight 93 kg 93.1 kg Intake: Oral 476 180 Output: Urine 570 500 350 Stool 1 Other: Voiding Method Urinal Urinal # Voids 1 # Bowel Movements 1 - Exam No acute distress, oriented 3. No respiratory distress. Currently on AIRVO. The patient is currently on 40 L an FiO2 of 50% HEENT examination is grossly unremarkable. Neck supple. Full range of motion. No adenopathy thyromegaly or neck vein dist ention. Cardiovascular examination reveals regular rhythm rate. S1-S2 normal. No S3 or S4. No discernible murmur noted. Lungs reveal scattered bilateral crackles. No wheezes. A few scattered rhonchi. Breath sounds equal bilaterally. The crackles and coarse lung bases bilaterally and the patient diminished breath on the lung bases Abdomen soft bowel sounds are heard. No masses or tenderness. Extremities are intact. No cyanosis clubbing or edema. Skin is without rash or lesion. Neurologic examination is brief but nonfocal. 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 The patient is currently on prednisone 60 mg by mouth daily. This been gradual improvement in his condition and the patient remains on 40 L with an FiO2 of 50% shortness of breath secondary to above New onset atrial fibrillation with RVR, resolved. Severe underlying COPD. Coronary artery disease. Mildly impaired systolic dysfunction with mild congestive heart failure. Benign essential hypertension. Schizophrenia. Bipolar disorder. Dyslipidemia. Obstructive sleep apnea syndrome. History of seizure disorder. Plan: Continue same treatment plan Continue prednisone high dose, with gradually taper this can be achieved at the LTAC center. Monitor oxygenation and gradually wean down FiO2 to maintain a pulse ox above 90% The most recent chest x-ray from 06/29/2022 showed diffuse bilateral pulmonary infiltrates, stable Continue Symbicort 2 puffs twice a day Continue bronchodilators Continue Levemir insulin for blood sugar control Continue anticoagulation with Eliquis 5 mg by mouth twice a day The patient can utilize BiPAP at a pressure of 10/5 with an FiO2 of 50% on Route to the LTAC. Meanwhile, the patient will be kept on Airvo no facility. We'll make arrangements to transfer this patient to LTAC today.
[2022-07-03 11:04] VITALS: BP 100/62; TEMP 98.2
--- NOTE | 2022-07-03 11:25 | P.PN ---
Subjective Progress Note Date: 07/03/22 HISTORY OF PRESENT ILLNESS: Patient is a pleasant 56-year-old male with significant past medical history of COPD, GERD, hypertension, hyperlipidemia, seizure disorder, diabetes, hypothyroid, obstructive sleep apnea, bipolar, former smoker quit 04/30 he was admitted 06/16/22 for respiratory distress. Cardiology was consulted for new onset atrial fibrillation with RVR overnight. He follows with Dr. Ayon in the office. It is questionable if he has had atrial fibrillation in the past. He reports that he couldn't feel his heart racing but had mild chest pain last night, denies any dizziness, shortness of breath is stable on high flow nasal cannula oxygen. He has had multiple admissions in the past 3 months for pneumonia, COPD exacerbation, respiratory failure. He had an echo 05/24/22 that showed an EF of 5560 percent. He had a heart catheterization 09/06/21 that showed calcified vessel with diffuse atherosclerotic plaque and a large dominant right coronary artery and a moderate area of stenosis in mid LAD. Hgb A1C is 8.4. 06/24 Patient sitting up, out of bed in chair. Denies any chest pain or palpitations. Shortness of breath is unchanged. Remains in sinus rhythm. 06/27/2022 Cardiology was reconsulted overnight due to patient going back into atrial fibrillation. The patient was started on metoprolol succinate 25 mg daily and he received a dose overnight. He since converted to sinus mechanism and is maintaining sinus mechanism this morning. He denies any chest pain or pressure. Vital signs are stable. 07/02 We have been asked to reevaluate the patient regarding A. fib with RVR. Approximately midnight, patient went into A. fib with RVR at 120 -130 bpm. Patient is now in a sinus rhythm running in the 70s and 80s. Patient was started on verapamil 120 mg daily and patient received his first dose this morning at 1 AM. Patient denies having any chest pain. 07/03 Telemetry is a sinus rhythm in the 70s and 80s, blood pressure 110/75. Due to patient's underlying history of COPD, we will try to get him off beta ele can transition to a higher dose of verapamil. PHYSICAL EXAM: VITAL SIGNS: Reviewed. GENERAL: Well-developed in no acute distress. NECK: Supple. No JVD or thyromegaly LUNGS: Respirations even and unlabored. Lungs diminished to auscultation bilaterally. HEART: Regular rate and rhythm. S1 and S2 heard. EXTREMITIES: Normal range of motion. No clubbing or cyanosis. Peripheral pulses intact. No lower extremity edema ASSESSMENT: Pneumonia Acute hypoxic respiratory failure, on AIRVO New onset paroxysmal atrial fibrillation with RVR, currently in sinus rhythm Hypertension Hyperlipidemia COPD Diabetes PLAN: Continue current cardiac medications Discontinue metoprolol tartrate and increase verapamil 120 mg daily twice daily Continue Eliquis Cardiology will sign off and follow on an as-needed basis. Please re-consult for any new concerns. Patient may follow-up with Dr. Ayon in 1-2 weeks. Nurse practitioner note has been reviewed by physician. Signing provider agrees with the documented findings, assessment, and plan of care. Objective - Vital Signs Vital signs: Vital Signs Temp 98.0 F 07/03/22 04:20 Pulse 80 07/03/22 08:10 Resp 18 07/03/22 04:20 BP 110/75 07/03/22 04:20 Pulse Ox 97 07/03/22 07:55 FiO2 50 07/03/22 07:55 Intake & Output 07/02/22 07/03/22 07/03/22 18:59 06:59 18:59 Intake Total 476 180 Output Total 571 500 Balance -95 -500 180 Weight 93 kg 93.1 kg Intake: Oral 476 180 Output: Urine 570 500 Stool 1 Other: Voiding Method Urinal Urinal - Labs CBC & Chem 7: 06/30/22 08:22 07/02/22 07:04 Labs: Abnormal Lab Results - Last 24 Hours (Table) 07/02/22 07/02/22 07/02/22 Range/Units 11:37 16:29 20:26 POC Glucose (mg/dL) 219 H 291 H 253 H (70-110) mg/dL 07/03/22 Range/Units 06:24 POC Glucose (mg/dL) 154 H (70-110) mg/dL
[2022-07-03 11:52] LABS: Glucose,Whole Blood 150 mg/dL (70-110)
--- NOTE | 2022-07-03 12:18 | P.DS ---
Providers Date of admission: 06/16/22 16:43 Attending physician: Johnson Galan Consults: 06/16/22 16:43 Consult Physician Routine Consulting Provider: Reggie Jj Consult Reason/Comments: Respiratory failure CHF COPD and interstitial lung disease Do you want consulting provider notified?: Yes 07/01/22 23:55 Consult Physician Routine Consulting Provider: Manuel Starr Consult Reason/Comments: AFIB Rvr Do you want consulting provider notified?: Yes Primary care physician: [facility] Course: Final Diagnosis Acute exacerbation COPD and organizing pneumonia per lung biopsy on 06/08/2022. Acute hypoxic respiratory failure from cicatracial organizing pneumonia continues on airvo high flow oxyen 40/50 Paroxysmal atrial fibrillation rapid ventricular rate currently rate controlled and anticoagulated with eliquis Chronic hypoxic respiratory failure from severe underlying COPD History chronic interstitial lung disease, emphysema CHF with mild impairment LV function of 45-50% Essential hypertension Hyperlipidemia Hyperglycemia secondary to steroids improving Mild cognitive impairment patinet is maintained on Aricept GERD Bipolar disorder/Schizophrenia Obstructive sleep apnea Seizure disorder Former smoker Stage 2 sacral decubitus ulcer -Full code Discharge Disposition Patient is stable for discharge to [facility] with overall guarded prognosis. Patient continues on high flow oxygen support at 40L at 50% FiO2. Patient has been followed closely by pulmonary and cardiology and recommending close follow up on discharge. Repeat labs in 2 to 3 days. Patient continues on prednisone 60 mg daily. Patient is continued on eliquis 5 mg BID. Continue atrovent nebulized albuterol nebulized every 4 hours and as needed. Continue levemir, sliding scale and scheduled insulin for tight glycemic control. Patient has sacral decubitus ulcer and will be continued with zinc barrier paste and optifoam dressing. Hospital Course This is a 56 year old male follows with Dr. Carson in the office, medical history of GERD, bipolar, hypertension, paroxysmal atrial fibrillation, COPD, CHF. Patient is admitted to the hospital for increased shortness of breathing, fever chills and cough. Patient transferred from outside hospital. He has had multiple admissions for respiratory failure and postinfection ARDS, treated with steroids and antibiotics. Patient is found to have crypotgenic organizing pneumonia from previous thorascopic wedge biopsy of the lung. He is admitted again with worsening respiratory status and has been placed on high flow oxygen support with Airvo at 40L of oxygen with FiO2 of 50%. most recent xray showing diffuse bilateral infiltrates and likely superimposed on background COPD and chronic interstitial lung disease. Patient is maintained currently on airvo 40/50 with oxygen saturation of 93%. Pulmonary and cardiology have been following the patient closely. Patient remains off antibiotic therapy at this time. Patient has been weaned from IV steroids and continues on oral prednisone 60 mg po daily and verapamil BID for the atrial fibrillation and blood pressure control. Patient continues in sinus rhythm at this time. Labs have stablized, remains af ebrile and blood pressure controlled currently 110/75. Cleared for discharge to [facility] hospital with guarded prognosis. 07/03/2022 Patient is evaluated today resting in bed. No acute events overnight. Patient remains on high flow oxygen, denies shortness of breath at rest. Not tolerating much activity. He is able to roll in bed. He is being rotated off the sacrum ulcer. His lung sounds are diminished has some scattered wheezing in the bases. He is alert x 3 and has diffuse generalized weakness. No focal neurological deficits. Bowels are moving his abdomen is soft and nontender. Most recent labs showing white count of 8.5, hgb 10.0, sodium 137, potassium 3.8, BUN 21, creatinine 0.59, blood glucose 157, calcium 8.0. He had procalcitonin checked 3 days ago at 0.16. Vitals today showing Temperature of 98.0, heart rate 80, blood pressure 110/75 and oxygen saturation 97% with 40L high flow cannula at 50% FiO2. Cleared for discharge with the above mentioned recommendations. Please see medication reconciliation for a list of current medication. Thank you for allowing us to participate in the care of this patient. The impression and plan of care has been dictated by Huong Mccullough, Nurse Practitioner as directed. Dr. Lina MD I have performed a history and physical examination and medical decision making of this patient, discussed the same with the dictator, and agree with the dictators assessment and plan as written, documented as a scribe. Based on total visit time, I have performed more than 50% of this visit. Patient Condition at Discharge: Fair Plan - Discharge Summary Discharge Rx Participant: No New Discharge Prescriptions: New predniSONE [Deltasone] 60 mg PO DAILY tab Apixaban [Eliquis] 5 mg PO BID tab Verapamil Sr [Isoptin Sr] 120 mg PO BID tab Insulin Detemir (Levemir) [Levemir] 15 unit SQ BID each Albuterol Nebulized [Ventolin Nebulized] 2.5 mg INHALATION RT-Q4H PRN ml PRN Reason: Shortness Of Breath Or Wheezing Ipratropium Nebulized [Atrovent Nebulized 0.2 MG/ML] 0.5 mg INHALATION RT-QID ml INSULIN ASPART (NovoLOG) [NovoLOG (formulary)] 0 unit SQ ACHS each Linagliptin [Tradjenta] 5 mg PO DAILY tab Albuterol Nebulized [Ventolin Nebulized] 2.5 mg INHALATION RT-QID ml Continue Omeprazole 40 mg PO DAILY Cetirizine HCl 10 mg PO DAILY Sertraline HCl [Zoloft] 200 mg PO DAILY Donepezil [Aricept] 5 mg PO HS Atorvastatin Calcium [Lipitor] 40 mg PO DAILY Ezetimibe [Zetia] 10 mg PO DAILY #30 tab metFORMIN HCL [Glucophage] 500 mg PO BID #60 tab Furosemide [Lasix] 40 mg PO Q48H #30 tab Budesonide-Formot 160-4.5 Mcg [Symbicort 160-4.5 Mcg Inhaler] 1 puff INHALATION RT-BID Gabapentin [Neurontin] 400 mg PO TID #9 cap traZODone HCL 150 mg PO HS Isosorbide Mononitrate ER [Imdur] 30 mg PO DAILY haloperidoL [Haloperidol] 2 mg PO DAILY #2 tab clonazePAM [KlonoPIN] 1 mg PO TID #6 tab HYDROcodone/APAP 7.5-325MG [[place] 7.5-325] 1 tab PO TID PRN #3 tab PRN Reason: Pain Discontinued Albuterol Sulfate [Albuterol Sulfate Hfa] 1 puff INHALATION RT-Q4H PRN PRN Reason: Shortness Of Breath predniSONE [Deltasone] 40 mg PO DAILY #100 tab Aspirin EC [Ecotrin Low Dose] 81 mg PO DAILY Verapamil Sr [Isoptin Sr] 120 mg PO DAILY #30 tab Discharge Medication List Omeprazole 40 mg PO DAILY 01/08/19 [History] Cetirizine HCl 10 mg PO DAILY 09/06/21 [History] Donepezil [Aricept] 5 mg PO HS 09/06/21 [History] Isosorbide Mononitrate ER [Imdur] 30 mg PO DAILY 09/06/21 [History] Sertraline HCl [Zoloft] 200 mg PO DAILY 09/06/21 [History] traZODone HCL 150 mg PO HS 09/06/21 [History] Atorvastatin Calcium [Lipitor] 40 mg PO DAILY 05/03/22 [History] Ezetimibe [Zetia] 10 mg PO DAILY #30 tab 05/14/22 [Rx] Furosemide [Lasix] 40 mg PO Q48H #30 tab 06/11/22 [Rx] metFORMIN HCL [Glucophage] 500 mg PO BID #60 tab 06/11/22 [Rx] Budesonide-Formot 160-4.5 Mcg [Symbicort 160-4.5 Mcg Inhaler] 1 puff INHALATION RT-BID 06/16/22 [History] Albuterol Nebulized [Ventolin Nebulized] 2.5 mg INHALATION RT-Q4H PRN ml 07/03/22 [Rx] Albuterol Nebulized [Ventolin Nebulized] 2.5 mg INHALATION RT-QID ml 07/03/22 [Rx] Apixaban [Eliquis] 5 mg PO BID tab 07/03/22 [Rx] Gabapentin [Neurontin] 400 mg PO TID #9 cap 07/03/22 [Rx] HYDROcodone/APAP 7.5-325MG [[place] 7.5-325] 1 tab PO TID PRN #3 tab 07/03/22 [Rx] INSULIN ASPART (NovoLOG) [NovoLOG (formulary)] 0 unit SQ ACHS each 07/03/22 [Rx] Insulin Detemir (Levemir) [Levemir] 15 unit SQ BID each 07/03/22 [Rx] Ipratropium Nebulized [Atrovent Nebulized 0.2 MG/ML] 0.5 mg INHALATION RT-QID ml 07/03/22 [Rx] Linagliptin [Tradjenta] 5 mg PO DAILY tab 07/03/22 [Rx] Verapamil Sr [Isoptin Sr] 120 mg PO BID tab 07/03/22 [Rx] clonazePAM [KlonoPIN] 1 mg PO TID #6 tab 07/03/22 [Rx] haloperidoL [Haloperidol] 2 mg PO DAILY #2 tab 07/03/22 [Rx] predniSONE [Deltasone] 60 mg PO DAILY tab 07/03/22 [Rx] Follow up Appointment(s)/Referral(s): Loco Carson MD [REFERRING] - 1-2 days Reggie Jj MD [STAFF PHYSICIAN] - 1 Week Jose David Ayon MD [STAFF PHYSICIAN] - 1 Week Ambulatory/Diagnostic Orders: Basic Metabolic Panel [LAB.AMB] Time Frame: 3 Days, Location: None Selected Complete Blood Count w/diff [LAB.AMB] Time Frame: 3 Days, Location: None Selected Activity/Diet/Wound Care/Special Instructions: Patient needs close follow up with cardiology and pulmonary services on discharge. Continue nebulizer treatments Local wound care to stage 2 sacral decubitus ulcer with zinc barrier paste and optifoam dressing. Continue to turn and reposition patient every 2 hours and recommend pressure offloading. Patient continues on hi flow oxygen at 40L with FiO2 of 50%. Recommend to continue on high dose oral prednisone at 60 mg daily Repeat labs in 2 to 3 days. [facility]
[2022-07-03 15:21] VITALS: PULSE 80
== END 2022-07-03 16:03 | DRG 196 ==
LOC: EC 15:36 → 3SCARD 16:43 → 2SICU 06-18 01:25 → 3SCARD 06-21 16:00
PROVIDERS: ADMIT Hospitalist; ATTEND Hospitalist
PROC: 5A09357 Assistance with Respiratory Ventilation, Less than 24 Consecutive Hours, Continuous Positive Airway Pressure (ICD-10-PCS; principal; 2022-06-18)
DX: J84.116 Cryptogenic organizing pneumonia (principal); J96.21 Acute and chronic respiratory failure with hypoxia; E87.3 Alkalosis; J44.1 Chronic obstructive pulmonary disease with (acute) exacerbation; F03.93 Unspecified dementia, unspecified severity, with mood disturbance; I50.22 Chronic systolic (congestive) heart failure; D69.6 Thrombocytopenia, unspecified; L89.152 Pressure ulcer of sacral region, stage 2; I11.0 Hypertensive heart disease with heart failure; I48.0 Paroxysmal atrial fibrillation; E11.65 Type 2 diabetes mellitus with hyperglycemia; F31.9 Bipolar disorder, unspecified; F20.9 Schizophrenia, unspecified; G40.909 Epilepsy, unspecified, not intractable, without status epilepticus; F14.11 Cocaine abuse, in remission; Z20.822 Contact with and (suspected) exposure to COVID-19; T38.0X5A Adverse effect of glucocorticoids and synthetic analogues, initial encounter; G47.33 Obstructive sleep apnea (adult) (pediatric); E07.81 Sick-euthyroid syndrome; D64.9 Anemia, unspecified; I25.10 Atherosclerotic heart disease of native coronary artery without angina pectoris; I25.84 Coronary atherosclerosis due to calcified coronary lesion; K21.9 Gastro-esophageal reflux disease without esophagitis; F12.11 Cannabis abuse, in remission; E78.5 Hyperlipidemia, unspecified; R26.2 Difficulty in walking, not elsewhere classified; R41.89 Other symptoms and signs involving cognitive functions and awareness; Z99.81 Dependence on supplemental oxygen; Z79.82 Long term (current) use of aspirin; Z79.51 Long term (current) use of inhaled steroids; Z79.84 Long term (current) use of oral hypoglycemic drugs; Z79.52 Long term (current) use of systemic steroids; Z79.899 Other long term (current) drug therapy; Z86.14 Personal history of Methicillin resistant Staphylococcus aureus infection; Z87.891 Personal history of nicotine dependence; Z87.01 Personal history of pneumonia (recurrent); W19.XXXA Unspecified fall, initial encounter
CPT/HCPCS: 36600; 71045; 73501; 80048; 80076; 82805; 83036; 83735; 83880; 84132; 84145; 84439; 84443; 84484; 85025; 85027; 87040; 87636; 93005; 94640; 94660; 94760; 99285

== ENCOUNTER 2022-08-25 13:47 | Inpatient (IN) | payer MEDICARE ==
[2022-08-25] MEDS ORDERED: ALBUTEROL NEBULIZED 2.5 MG/3 ML INHALATION STA (13:59)
--- NOTE | 2022-08-25 14:06 | ED ---
General Adult HPI - General Chief complaint: Shortness of Breath Stated complaint: JESUS Time Seen by Provider: 08/25/22 13:53 Source: patient, RN/MD, EMS Mode of arrival: EMS Limitations: no limitations - History of Present Illness Initial comments: Patient was transferred to our ED from [facility] due to respiratory difficulty and hypoxia. Per [facility] ED physician's report, the patient presented today with difficulty breathing and hypoxia. Patient has been treated with BiPAP, DuoNeb treatments, IV Lasix, IV Solu-Medrol, and IV an tibiotics (ceftriaxone and azithromycin) at the outside hospital prior to transfer. Patient reportedly has infiltrates seen on chest x-ray. Patient has a history of pulmonary fibrosis, CHF and COPD. Patient is normally on 6 L of home O2. Patient reports to me that he has had increasing dyspnea over the past 3 days or so. Patient denies having any other symptoms or complaints. Patient denies having any pain, fever or chills, headache, focal neuro deficit, chest pain or pressure, cough or cold symptoms, palpitations, dizziness, abdominal pain, nausea/vomiting/diarrhea, bloody or melanotic stool, dysuria or urinary symptoms, decreased urine output, leg or calf swelling or pain, or any other symptoms or complaints. Patient's outside hospital labs were all reviewed myself. Patient's Covid test is negative. Patient's troponin is within normal limits. Patient's BNP is elevated at 1420. Patient's electrolyte are within normal limits. Patient's glucose is mildly elevated at 296. Patient's WBC count is elevated at 16.45. Patient's lactic acid level is elevated at 5.3. Patient's procalcitonin level is elevated at 0.15. Patient's coags are within normal limits. Patient's ABG is notable for a pH of 7.37, PaO2 of 104 and pCO2 of 54.9. Patient confirms that he is DNR/DNI. Patient reports improvement in his dyspnea with BiPAP ventilation and outside hospital treatment. - Related Data Home Medications Medication Instructions Recorded Confirmed Omeprazole 20 mg PO DAILY 01/08/19 08/25/22 Cetirizine HCl 10 mg PO DAILY 09/06/21 08/25/22 Donepezil [Aricept] 5 mg PO HS 09/06/21 08/25/22 Isosorbide Mononitrate ER [Imdur] 30 mg PO DAILY 09/06/21 08/25/22 Sertraline HCl [Zoloft] 200 mg PO DAILY 09/06/21 08/25/22 traZODone HCL 150 mg PO HS PRN 09/06/21 08/25/22 Atorvastatin Calcium [Lipitor] 40 mg PO DAILY 05/03/22 08/25/22 Budesonide-Formot 160-4.5 Mcg 1 puff INHALATION RT-BID 06/16/22 08/25/22 [Symbicort 160-4.5 Mcg Inhaler] Amiodarone [Cordarone] 200 mg PO BID 08/25/22 08/25/22 Insulin Glargine,Hum.rec.anlog 15 units SQ BID 08/25/22 08/25/22 [Lantus Solostar Pen] Insulin Lispro [humaLOG Kwikpen] See Protocol SQ ACHS 08/25/22 08/25/22 Ipratropium-Albuterol Nebulize 3 ml INHALATION RT-Q6H PRN 08/25/22 08/25/22 [Duoneb 0.5 mg-3 mg/3 ml Soln] Loratadine 10 mg PO DAILY 08/25/22 08/25/22 Metoprolol Tartrate [Lopressor] 25 mg PO TID 08/25/22 08/25/22 Tamsulosin HCl [Flomax] 0.4 mg PO DAILY 08/25/22 08/25/22 clonazePAM [KlonoPIN] 0.5 mg PO TID 08/25/22 08/25/22 predniSONE [Deltasone] 20 mg PO DAILY 08/25/22 08/25/22 Previous Rx's Medication Instructions Recorded Ezetimibe [Zetia] 10 mg PO DAILY #30 tab 05/14/22 Furosemide [Lasix] 40 mg PO Q48H #30 tab 06/11/22 metFORMIN HCL [Glucophage] 500 mg PO BID #60 tab 06/11/22 Apixaban [Eliquis] 5 mg PO BID tab 07/03/22 Gabapentin [Neurontin] 400 mg PO TID #9 cap 07/03/22 HYDROcodone/APAP 7.5-325MG [[place] 1 tab PO TID PRN #3 tab 07/03/22 7.5-325] Linagliptin [Tradjenta] 5 mg PO DAILY tab 07/03/22 Verapamil Sr [Isoptin Sr] 120 mg PO BID tab 07/03/22 haloperidoL 2 mg PO DAILY #2 tab 07/03/22 Allergies Allergy/AdvReac Type Severity Reaction Status Date / Time No Known Allergies Allergy Verified 08/25/22 15:32 Review of Systems ROS Statement: Those systems with pertinent positive or pertinent negative responses have been documented in the HPI. ROS Other: All systems not noted in ROS Statement are negative. Past Medical History Past Medical History: Coronary Artery Disease (CAD), COPD, GERD/Reflux, Hyperlipidemia, Hypertension, Memory Impairment, Pneumonia, Respiratory Disorder, Seizure Disorder, Skin Disorder, Sleep Apnea/CPAP/BIPAP Additional Past Medical History / Comment(s): FREQUENT VOMITING. HX ABSCESSES ON LEGS WITH MRSA, HX MRSA ON FACE, NECK, RIGHT THIGH AND LEFT CALF. CELLULTIS. HX SEIZURE X2, LAST IN 2011(BIT PART OF TONGUE OFF). HX BACK FRACTURE(2002), HX L1 COMPRESSION FRACTURE. ENLARGED HEART. CHRONIC BRONCHITIS. History of Any Multi-Drug Resistant Organisms: MRSA Date of last positivie culture/infection: 03/07/16 MDRO Source:: LEFT LEG Past Surgical History: Adenoidectomy, Appendectomy, Cholecystectomy, Heart Catheterization, Hernia Repair, Tonsillectomy Additional Past Surgical History / Comment(s): ABD HERNIA REPAIR X3, VENTRAL HERNIA REPAIR, LAP BAND, LAP REMOVAL OF LAP BAND AND PORT, COLONOSCOPY, EGD, EXCISION OF MRSA FROM FACE, NECK AND LEGS. UP3 surgery Past Anesthesia/Blood Transfusion Reactions: Previous Problems w/ Anesthesia Additional Past Anesthesia/Blood Transfusion Reaction / Comment(s): 1985 DURING TONSILLECTOMY AND ADENOIDECTOMY DEVELOPED FLUID IN LUNGS, WAS PUT ON VENT. Past Psychological History: Bipolar, Depression Smoking Status: Current some day smoker Past Alcohol Use History: None Reported Past Drug Use History: Cocaine, Marijuana - Past Family History Mother Family Medical History: No Reported History Additional Family Medical History / Comment(s): PT STATED MOM IS HEALTHY Father Family Medical History: Cancer Additional Family Medical History / Comment(s): LYMPHOMA. General Exam Limitations: no limitations General appearance: alert Head exam: Present: atraumatic, normocephalic Eye exam: Present: normal appearance, EOMI ENT exam: Present: mucous membranes moist Respiratory exam: Present: other (Bilateral crackles and end expiratory wheezes; patient is on BiPAP ventilation; patient has minimal to no respiratory distress at this time). Absent: stridor Cardiovascular Exam: Present: regular rate, normal rhythm, normal heart sounds, other (Normal radial pulses bilaterally) GI/Abdominal exam: Present: soft. Absent: distended, tenderness, guarding Extremities exam: Present: other (1+ bilateral lower extremity pitting edema; negative Homans sign bilaterally). Absent: tenderness, calf tenderness Neurological exam: Present: alert, oriented X3. Absent: motor sensory deficit Psychiatric exam: Present: normal affect, normal mood Skin exam: Present: warm, dry, intact, normal color Course Vital Signs 08/25/22 08/25/22 08/25/22 13:49 13:52 13:56 Temperature 98.4 F Pulse Rate 67 Respiratory 22 22 Rate Blood Pressure 94/65 O2 Sat by Pulse 99 Oximetry Fraction of 60 Inspired Oxygen (FIO2) 08/25/22 08/25/22 08/25/22 14:22 14:49 15:02 Temperature Pulse Rate 65 63 67 Respiratory 24 Rate Blood Pressure 100/72 O2 Sat by Pulse 95 Oximetry Fraction of Inspired Oxygen (FIO2) - Reevaluation(s) Reevaluation #1: 08/25/22 16:09 Case, H&P, test results and ED/prehospital management was discussed with Dr. Galan. He accepts hospital admission. He agrees with pulmonology consultation. He has no further recommendations at this time. 08/25/22 16:16 Patient remains alert and breathing comfortably on BiPAP ventilation. Patient denies development of any new symptoms while in the ED. Patient is aware of his test results, and he agrees with hospital admission at this time. EKG Findings - EKG Comments: EKG Findings:: ED physician interpretation (interpreted by me): Normal sinus rhythm, ventricular rate of 65 bpm, no ectopy, normal MS and QRS intervals, normal QT interval, nonspecific T-wave abnormality, normal axis Medical Decision Making - Medical Decision Making Was pt. sent in by a medical professional or institution (, PA, W[employer] PAT[employer], urgent care, hospital, or intermediate...) When possible be specific @ -Yes, patient was transferred from the [facility] ED. Did you speak to anyone other than the patient for history (EMS, parent, family, police, friend...)? What history was obtained from this source @ -History was also obtained from the [facility] ED physician. Did you review nursing and triage notes (agree or disagree)? Why? @ -I reviewed and agree with nursing and triage notes Were old charts reviewed (outside hosp., previous admission, EMS record, old EKG, old radiological studies, urgent care reports/EKG's, intermediate records)? Report findings @ -I have reviewed medical records from [facility]. Differential Diagnosis (chest pain, altered mental status, abdominal pain women, abdominal pain men, vaginal bleeding, weakness, fever, dyspnea, syncope, headache, dizziness, GI bleed, back pain, seizure, CVA, palpatations, mental health, musculoskeletal)? @ -Differential Dyspnea: Coronary syndrome, CHF, arrhythmia, tamponade, asthma, COPD, pulmonary fibrosis, pneumonia, pneumothorax, pulmonary effusion, anemia, neuromuscular, this is not meant to be an all-inclusive list. EKG interpreted by me (3pts min.). @ -As above X-rays interpreted by me (1pt min.). @ -Chest x-ray was reviewed myself and demonstrates bilateral multifocal infiltrates. I agree with the radiologist's interpretation as above. CT interpreted by me (1pt min.). @ -None done U/S interpreted by me (1pt. min.). @ -None done What testing was considered but not performed or refused? (CT, X-rays, U/S, labs)? Why? @ -None What meds were considered but not given or refused? Why? @ -None Did you discuss the management of the patient with other professionals (professionals i.e. , PA, [employer], lab, RT, psych nurse, social services specialist, general dentist/owner, teacher, dog control officer, director of casework department)? Give summary @ -As above. Was smoking cessation discussed for >3mins.? @ -No Was critical care preformed (if so, how long)? @ -Yes, 40 minutes. Were there social determinants of health that impacted care today? How? (Homelessness, low income, unemployed, alcoholism, drug addiction, transportation, low edu. Level, literacy, decrease access to med. care, penitentiary, rehab)? @ -No Was there de-escalation of care discussed even if they declined (Discuss DNR or withdrawal of care, Hospice)? DNR status @ -No What co-morbidities impacted this encounter? (DM, HTN, Smoking, COPD, CAD, Cancer, CVA, ARF, Chemo, Hep., AIDS, mental health diagnosis, sleep apnea, morbid obesity)? @ -Pulmonary fibrosis, COPD, CHF Was patient admitted / discharged? Hospital course, mention meds given and route, prescriptions, significant lab abnormalities, going to OR and other pertinent info. @ -Patient was transferred to our ED from the [facility] ED for further evaluation and hospital admission. Patient was placed on BiPAP ventilation at the outside hospital ED, which has been continued here in our hospital. Given the patient's history of COPD and wheezing on examination, patient has been treated with IV steroids and neb treatments for COPD. Given the patient's leukocytosis, elevated procalcitonin level and pulmonary infiltrates on chest x- ray, patient has been treated with IV antibiotics for pneumonia. Given the patient's elevated BNP, lower extremity edema and pulmonary infiltrates on chest x-ray, patient has also been treated with IV Lasix for CHF. Patient confirms that he is DNR/DNI. Patient's repeat lactate level obtained in our ED is now within normal limits. Patient's repeat troponin level remains within normal limits. Will admit the patient to the hospital for continued treatment and pulmonology consultation. Dr. Galan has accepted hospital admission. Undiagnosed new problem with uncertain prognosis? @ -No Drug Therapy requiring intensive monitoring for toxicity (Heparin, Nitro, Insulin, Cardizem)? @ -No Were any procedures done? @ -No Diagnosis/symptom? @ -COPD Acute, or Chronic, or Acute on Chronic? @ -Acute on chronic Uncomplicated (without systemic symptoms) or Complicated (systemic symptoms)? @ -default Side effects of treatment? @ -No Exacerbation, Progression, or Severe Exacerbation? @ -Exacerbation Poses a threat to life or bodily function? How? (Chest pain, [place], [place], pneumonia, PE, COPD, DKA, ARF, appy, cholecystitis, CVA, Diverticulitis, Homicidal, Suicidal, threat to staff... and all critical care pts) @ -Yes. Deterioration may lead to worsening pulmonary function a threat to life. Diagnosis/symptom? @ -Pneumonia with hypoxia Acute, or Chronic, or Acute on Chronic? @ -Acute Uncomplicated (without systemic symptoms) or Complicated (systemic symptoms)? @ -default Side effects of treatment? @ -none Exacerbation, Progression, or Severe Exacerbation] @ -no Poses a threat to life or bodily function? @ -Yes. Deterioration may lead to worsening pulmonary function and a threat to life. Diagnosis/symptom? @ -CHF Acute, or Chronic, or Acute on Chronic? @ -Acute Uncomplicated (without systemic symptoms) or Complicated (systemic symptoms)? @ -default Side effects of treatment? @ -none Exacerbation, Progression, or Severe Exacerbation] @ -no Poses a threat to life or bodily function? @ -Yes. Deterioration may lead to worsening pulmonary function and a threat to life. - Lab Data Lab Results 08/25/22 08/25/22 08/25/22 Range/Units 14:25 14:25 14:25 Plasma Lactic Acid [place] 1.7 (0.7-2.0) mmol/L Troponin I 0.016 (0.000-0.034) ng/mL Influenza Type A RNA Not Detected (Not Detectd) Influenza Type B (PCR) Not Detected (Not Detectd) - Radiology Data Chest x-ray: Bilateral multifocal edema and/or infiltrates redemonstrated similar to prior. Critical Care Time Critical Care Time: Yes Total Critical Care Time: 40 Disposition Clinical Impression: Hypoxia, Dyspnea, Pneumonia, COPD (chronic obstructive pulmonary disease), CHF (congestive heart failure) Disposition: ADMITTED IP TO THIS HOSP Condition: Stable Is patient prescribed a controlled substance at d/c from ED?: No Referrals: Loco Carson MD [Primary Care Provider] - 1-2 days Time of Disposition: 16:10
--- NOTE | 2022-08-25 14:29 | XR ---
EXAMINATION TYPE: XR chest 1V portable DATE OF EXAM: 08/25/2022 COMPARISON: Chest x-ray June 29, 2022 HISTORY: Hypoxia and dyspnea TECHNIQUE: Single AP portable frontal upright view of the chest is obtained. FINDINGS: Persistent cardiomegaly and low lung volumes with increased bilateral opacities. The oss eous structures are intact. IMPRESSION: Bilateral multifocal edema and/or infiltrates redemonstrated similar to prior.
[2022-08-25] MEDS ORDERED: NALOXONE 0.4 MG/ML 1 ML VIAL IV PRN (16:10)
[2022-08-25 20:16] LABS: Glucose,Whole Blood 343 mg/dL (70-110)
[2022-08-25] MEDS ORDERED: ATORVASTATIN 40 MG TAB PO SCH (23:50)
[2022-08-25] MEDS ORDERED: IPRATROPIUM-ALBUTEROL 3 ML NEB INHALATION PRN (23:51)
[2022-08-25] MEDS ORDERED: traZODone HCL 50 MG TAB PO PRN (23:51)
[2022-08-25] MEDS ORDERED: DEXTROSE 50% SYRINGE 50 ML IVP PRN ×2 (23:55)
[2022-08-26] MEDS: ATORVASTATIN 40 MG TAB PO SCH ×2 (00:06→08:49)
[2022-08-26] MEDS: GABAPENTIN 400 MG CAP PO SCH ×4 (00:25→21:50)
[2022-08-26] MEDS: APIXABAN 5 MG TAB PO SCH ×3 (00:25→21:49)
[2022-08-26] MEDS: METOPROLOL TARTRATE 25 MG TAB PO SCH ×4 (00:25→21:52)
[2022-08-26] MEDS: AMIODARONE 200 MG TAB PO SCH ×3 (00:26→21:50)
[2022-08-26] MEDS: clonazePAM 0.5 MG TAB PO SCH ×4 (00:26→21:52)
[2022-08-26] MEDS: metFORMIN 500 MG TAB PO SCH ×4 (00:26→21:50)
[2022-08-26] MEDS: DONEPEZIL 5 MG TAB PO SCH ×2 (01:03→21:52)
[2022-08-26] MEDS: VERAPAMIL SR 120 MG TABLET.ER PO SCH ×3 (01:03→21:51)
[2022-08-26] MEDS: INSULIN DETEMIR (LEVEMIR) 100 UNIT/ML SYR SQ SCH ×2 (01:03→08:13)
[2022-08-26 06:24] LABS: Glucose,Whole Blood 255 mg/dL (70-110)
[2022-08-26] MEDS: INSULIN ASPART (NovoLOG) 100 UNIT/ML VIAL SQ SCH ×4 (07:02→21:49)
[2022-08-26] MEDS: PANTOPRAZOLE 40 MG TABLET PO SCH (07:02)
[2022-08-26 08:22] LABS: Anisocytosis Slight; Basophils % (A) 0 %; Eosinophils % (A) 0 %; HCT 24.3 % (39.0-53.0); Hypochromasia Marked; Lymphocytes # (A) 0.7 k/uL (1.0-4.8); Lymphocytes % (A) 9 %; MCH 27.6 pg (25.0-35.0); MCHC 30.5 g/dL (31.0-37.0); MCV 90.5 fL (80.0-100.0); Mean Platelet Volume 8.6; Monocytes # (A) 0.4 k/uL (0-1.0); Monocytes % (A) 5 %; Neutrophils # (A) 6.2 k/uL (1.3-7.7); Neutrophils % (A) 85 %; Platelet Count 145 k/uL (150-450); Poikilocytosis Slight; RBC 2.69 m/uL (4.30-5.90); RDW 17.4 % (11.5-15.5); WBC 7.3 k/uL (3.8-10.6)
[2022-08-26 08:28] LABS: HGB 7.4 gm/dL (13.0-17.5)
[2022-08-26 08:40] LABS: ALT 31 U/L (4-49); AST 22 U/L (17-59); African American GFR (CKD) >90 (>60 ml/min/1.73 sqM); Albumin 2.4 g/dL (3.5-5.0); Alkaline Phosphatase 90 U/L (38-126); Blood Urea Nitrogen 21 mg/dL (9-20); Calcium 7.7 mg/dL (8.4-10.2); Chloride 98 mmol/L (98-107); Glucose 221 mg/dL (74-99); Non-African American GFR(CKD) >90 (>60 ml/min/1.73 sqM); Sodium 140 mmol/L (137-145); Total Bilirubin 0.5 mg/dL (0.2-1.3); Total Protein 4.7 g/dL (6.3-8.2)
[2022-08-26 08:45] LABS: Anion Gap 3 mmol/L
[2022-08-26] MEDS: TAMSULOSIN 0.4 MG CAP.ER.24H PO SCH (08:48)
[2022-08-26] MEDS: ISOSORBIDE MONONITRATE ER 30 MG TAB.ER.24H PO SCH (08:49)
[2022-08-26] MEDS: LINAGLIPTIN 5 MG TABLET PO SCH (08:49)
[2022-08-26] MEDS: EZETIMIBE 10 MG TAB PO SCH (08:49)
[2022-08-26] MEDS: SERTRALINE 100 MG TAB PO SCH (08:49)
[2022-08-26] MEDS: LORATADINE 10 MG TAB PO SCH (08:49)
[2022-08-26] MEDS: SYMBICORT 160-4.5 MCG INHALER INHALATION SCH ×2 (08:56→21:08)
[2022-08-26] MEDS ORDERED: predniSONE 20 MG TAB PO SCH (09:00)
[2022-08-26 09:07] LABS: Carbon Dioxide 39 mmol/L (22-30)
[2022-08-26 11:52] LABS: Glucose,Whole Blood 206 mg/dL (70-110)
[2022-08-26] MEDS: methylPREDNISolone SOD SUCCI 125 MG/2 ML VIAL IV SCH ×3 (12:14→21:51)
--- NOTE | 2022-08-26 12:39 | P.CNPUL ---
History of Present Illness Consult date: 08/26/22 Requesting physician: Johnson Galan Reason for consult: dyspnea, hypoxemia, abnormal CXR/CT Chief complaint: Shortness of breath History of present illness: This is a pleasant 57-year-old male patient was hospitalized again yesterday as a transfer from [facility] for worsening shortness of breath. He is known to have schizophrenia, depression, COPD, hypertension, coronary artery disease, CHF with mild impairment of LV function with an ejection fraction of 45-50%. Chronic atrial fibrillation maintained on amiodarone currently at 200 mg twice a day. Anticoagulated with Eliquis. He is known to have chronic hypoxic respiratory failure on 7 L high flow nasal cannula at [facility] and development of diffuse bilateral pulmonary infiltrates. The patient has had multiple hospitalizations. During his hospital stay, he receives antibiotics and steroids and he improves. 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 He was to be following with us in the office for steroid titration however he has not yet been able to get there. He had been weaned down by his PCP to 20 mg of prednisone daily. His chest x-ray is again showing recurrence of bilateral multifocal edema and/or infiltrates. He is requiring 7 L high flow nasal c annula presently. He was initially on BiPAP 12/6 and 50% FiO2. He is seen today in consultation on the selective care unit. He is currently resting in bed. Awake and alert in no acute distress. He's been afebrile. Hemodynamically stable. White count 7.3. Hemoglobin 7.4. Platelets 145. Sodi um 140. Potassium 4.0. Bicarb 39. BUN 21. Creatinine 0.66. Glucose 221. Influenza screen negative. He's been initiated and DuoNeb inhalations, Symbicort, Solu-Medrol at 60 mg IV every 6 hours. Review of Systems REVIEW OF SYSTEMS: CONSTITUTIONAL: Denies any recent significant weight loss or weight gain. EYES: Denies change in vision. EARS, NOSE, MOUTH, THROAT: Denies headaches, denies sore throat. CARDIOVASCULAR: Denies chest pain, palpitations or syncopal episodes. RESPIRATORY: Positive for shortness of breath, cough, congestion no hemoptysis. GASTROINTESTINAL: Denies change in appetite, denies abdominal pain GENITOURINARY: Denies hematuria, denies infections. MUSKULOSKELETAL: Denies pain, denies swelling. INTEGUMENTARY: Denies rash, denies eczema. NEUROLOGICAL: Denies recent memory loss, no recent seizure activity. PSYCHIATRIC: Denies anxiety, denies depression. HEMATOLOGIC/LYMPHATIC: Denies anemia, denies enlarged lymph nodes. Past Medical History Past Medical History: Coronary Artery Disease (CAD), COPD, GERD/Reflux, Hyperlipidemia, Hypertension, Memory Impairment, Pneumonia, Respiratory Disorder, Seizure Disorder, Skin Disorder, Sleep Apnea/CPAP/BIPAP Additional Past Medical History / Comment(s): FREQUENT VOMITING. HX ABSCESSES ON LEGS WITH MRSA, HX MRSA ON FACE, NECK, RIGHT THIGH AND LEFT CALF. CELLULTIS. HX SEIZURE X2, LAST IN 2011(BIT PART OF TONGUE OFF). HX BACK FRACTURE(2002), HX L1 COMPRESSION FRACTURE. ENLARGED HEART. CHRONIC BRONCHITIS. History of Any Multi-Drug Resistant Organisms: MRSA Date of last positivie culture/infection: 03/07/16 MDRO Source:: LEFT LEG Past Surgical History: Adenoidectomy, Appendectomy, Cholecystectomy, Heart Catheterization, Hernia Repair, Tonsillectomy Additional Past Surgical History / Comment(s): ABD HERNIA REPAIR X3, VENTRAL HERNIA REPAIR, LAP BAND, LAP REMOVAL OF LAP BAND AND PORT, COLONOSCOPY, EGD, EXCISION OF MRSA FROM FACE, NECK AND LEGS. UP3 surgery Past Anesthesia/Blood Transfusion Reactions: Previous Problems w/ Anesthesia Additional Past Anesthesia/Blood Transfusion Reaction / Comment(s): 1985 DURING TONSILLECTOMY AND ADENOIDECTOMY DEVELOPED FLUID IN LUNGS, WAS PUT ON VENT. Past Psychological History: Bipolar, Depression Additional Psychological History / Comment(s): . Smoking Status: Former smoker Past Alcohol Use History: None Reported Additional Past Alcohol Use History / Comment(s): HX OF SMOKING OFF/ON SINCE AGE 12, UP TO 1 PPD. Past Drug Use History: Cocaine, Marijuana Additional Drug Use History / Comment(s): previous marijuana and cocaine, no co ke use for 20 years - Past Family History Mother Family Medical History: No Reported History Additional Family Medical History / Comment(s): PT STATED MOM IS HEALTHY Father Family Medical History: Cancer Additional Family Medical History / Comment(s): LYMPHOMA. Medications and Allergies Home Medications Medication Instructions Recorded Confirmed Type Omeprazole 20 mg PO DAILY 01/08/19 08/25/22 History Cetirizine HCl 10 mg PO DAILY 09/06/21 08/25/22 History Donepezil [Aricept] 5 mg PO HS 09/06/21 08/25/22 History Isosorbide Mononitrate ER [Imdur] 30 mg PO DAILY 09/06/21 08/25/22 History Sertraline HCl [Zoloft] 200 mg PO DAILY 09/06/21 08/25/22 History traZODone HCL 150 mg PO HS PRN 09/06/21 08/25/22 History Atorvastatin Calcium [Lipitor] 40 mg PO DAILY 05/03/22 08/25/22 History Ezetimibe [Zetia] 10 mg PO DAILY #30 tab 05/14/22 08/25/22 Rx Furosemide [Lasix] 40 mg PO Q48H #30 tab 06/11/22 08/25/22 Rx metFORMIN HCL [Glucophage] 500 mg PO BID #60 tab 06/11/22 08/25/22 Rx Budesonide-Formot 160-4.5 Mcg 1 puff INHALATION RT-BID 06/16/22 08/25/22 History [Symbicort 160-4.5 Mcg Inhaler] Apixaban [Eliquis] 5 mg PO BID tab 07/03/22 08/25/22 Rx Gabapentin [Neurontin] 400 mg PO TID #9 cap 07/03/22 08/25/22 Rx HYDROcodone/APAP 7.5-325MG [[place] 1 tab PO TID PRN #3 tab 07/03/22 08/25/22 Rx 7.5-325] Linagliptin [Tradjenta] 5 mg PO DAILY tab 07/03/22 08/25/22 Rx Verapamil Sr [Isoptin Sr] 120 mg PO BID tab 07/03/22 08/25/22 Rx haloperidoL 2 mg PO DAILY #2 tab 07/03/22 08/25/22 Rx Amiodarone [Cordarone] 200 mg PO BID 08/25/22 08/25/22 History Insulin Glargine,Hum.rec.anlog 15 units SQ BID 08/25/22 08/25/22 History [Lantus Solostar Pen] Insulin Lispro [humaLOG Kwikpen] See Protocol SQ ACHS 08/25/22 08/25/22 History Ipratropium-Albuterol Nebulize 3 ml INHALATION RT-Q6H PRN 08/25/22 08/25/22 History [Duoneb 0.5 mg-3 mg/3 ml Soln] Loratadine 10 mg PO DAILY 08/25/22 08/25/22 History Metoprolol Tartrate [Lopressor] 25 mg PO TID 08/25/22 08/25/22 History Tamsulosin HCl [Flomax] 0.4 mg PO DAILY 08/25/22 08/25/22 History clonazePAM [KlonoPIN] 0.5 mg PO TID 08/25/22 08/25/22 History predniSONE [Deltasone] 20 mg PO DAILY 08/25/22 08/25/22 History Allergies Allergy/AdvReac Type Severity Reaction Status Date / Time No Known Allergies Allergy Verified 08/25/22 15:32 Physical Exam Vitals: Vital Signs Temp Pulse Pulse Resp BP BP Pulse Ox 08/26/22 08:57 93 L 08/26/22 08:00 97.8 F 57 L 19 114/72 91 L 08/26/22 04:00 97.5 F L 61 22 110/71 97 08/26/22 03:10 08/26/22 02:00 69 22 08/26/22 00:00 97.9 F 77 22 135/78 08/25/22 23:14 08/25/22 21:00 98.1 F 69 22 122/65 08/25/22 20:32 08/25/22 20:00 69 22 08/25/22 18:20 65 18 98/71 95 08/25/22 17:00 66 16 104/73 97 08/25/22 16:30 67 26 H 101/73 98 08/25/22 15:02 67 08/25/22 14:49 63 08/25/22 14:22 65 24 100/72 95 08/25/22 13:56 22 08/25/22 13:52 08/25/22 13:49 98.4 F 67 22 94/65 99 FiO2 08/26/22 08:57 08/26/22 08:00 08/26/22 04:00 08/26/22 03:10 50 08/26/22 02:00 08/26/22 00:00 08/25/22 23:14 50 08/25/22 21:00 08/25/22 20:32 50 08/25/22 20:00 08/25/22 18:20 08/25/22 17:00 08/25/22 16:30 08/25/22 15:02 08/25/22 14:49 08/25/22 14:22 08/25/22 13:56 08/25/22 13:52 60 08/25/22 13:49 Intake and Output 08/25/22 08/26/22 08/26/22 22:59 06:59 14:59 Intake Total 250 118 Output Total 550 750 Balance -550 -500 118 Intake: Oral 250 118 Output: Urine 550 750 Other: Weight 90.718 kg 104 kg GENERAL EXAM: Alert, pleasant 57-year-old male patient, on 7 L high flow nasal cannula, comfortable in no apparent distress. HEAD: Normocephalic. EYES: Normal reaction of pupils, equal size. NOSE: Clear with pink turbinates. THROAT: No erythema or exudates. NECK: No masses, no JVD. CHEST: No chest wall deformity. LUNGS: Equal air entry with diffuse coarse crackles bilaterally. CVS: S1 and S2 normal with no audible murmur, regular rhythm. ABDOMEN: No hepatosplenomegaly, normal bowel sounds, no guarding or rigidity. SPINE: No scoliosis or deformity SKIN: No rashes CENTRAL NERVOUS SYSTEM: No focal deficits, tone is normal in all 4 extremities. EXTREMITIES: There is no peripheral edema. No clubbing, no cyanosis. Peripheral pulses are intact. Results - Laboratory Findings CBC and BMP: 08/26/22 07:30 08/26/22 07:30 Abnormal lab findings: Abnormal Labs 08/25/22 08/26/22 08/26/22 20:15 06:22 07:30 RBC 2.69 L Hgb 7.4 L D Hct 24.3 L MCHC 30.5 L RDW 17.4 H Plt Count 145 L Lymphocytes # 0.7 L Carbon Dioxide BUN Glucose POC Glucose (mg/dL) 343 H 255 H Calcium Total Protein Albumin 08/26/22 08/26/22 07:30 11:50 RBC Hgb Hct MCHC RDW Plt Count Lymphocytes # Carbon Dioxide 39 H BUN 21 H Glucose 221 H POC Glucose (mg/dL) 206 H Calcium 7.7 L Total Protein 4.7 L Albumin 2.4 L - Diagnostic Findings Chest x-ray: image reviewed Assessment and Plan Assessment: Acute on chronic hypoxic respiratory failure 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 Confirmed by wedge biopsy on 06/11/2022. The patient was to remain on a high-dose of steroids however he presented back here on just 20 mg of prednisone daily. Multiple readmissions to the hospital secondary to above and the last discharge was 07/03/2022 Atrial fibrillation, currently on amiodarone 200 mg twice a day. Anticoagulated with Eliquis Severe underlying COPD Coronary artery disease Mildly impaired systolic dysfunction with mild congestive heart failure Benign essential hypertension Schizophrenia Bipolar disorder Dyslipidemia Obstructive sleep apnea syndrome History of seizure disorder Plan: The patient was seen and evaluated Chest x-ray, labs and medications reviewed Continue Solu-Medrol at 60 mg every 6 hours Continue DuoNeb inhalations, Symbicort Add Lasix 20 mg by mouth twice a day Consult cardiology to see if we could wean down or off amiodarone We will titrate the FiO2 as tolerated We will continue to follow and make further recommendations based on his clinical status I have personally seen and examined the patient, performed the documentation and the assessment and plan as written. Number of minutes spent on the visit: 20.
[2022-08-26] MEDS: FUROSEMIDE 20 MG TAB PO SCH (16:00)
[2022-08-26 16:38] LABS: Glucose,Whole Blood 219 mg/dL (70-110)
[2022-08-26 20:09] LABS: Glucose,Whole Blood 228 mg/dL (70-110)
[2022-08-27] MEDS: INSULIN DETEMIR (LEVEMIR) 100 UNIT/ML SYR SQ SCH ×2 (00:47→06:45)
[2022-08-27 06:13] LABS: Glucose,Whole Blood 242 mg/dL (70-110)
[2022-08-27] MEDS: PANTOPRAZOLE 40 MG TABLET PO SCH (06:46)
[2022-08-27] MEDS: INSULIN ASPART (NovoLOG) 100 UNIT/ML VIAL SQ SCH ×4 (06:46→21:20)
[2022-08-27] MEDS: methylPREDNISolone SOD SUCCI 125 MG/2 ML VIAL IV SCH ×4 (06:46→23:05)
[2022-08-27] MEDS: FUROSEMIDE 20 MG TAB PO SCH ×2 (07:31→15:47)
[2022-08-27] MEDS: LINAGLIPTIN 5 MG TABLET PO SCH (07:31)
[2022-08-27] MEDS: SERTRALINE 100 MG TAB PO SCH (07:31)
[2022-08-27] MEDS: TAMSULOSIN 0.4 MG CAP.ER.24H PO SCH (07:31)
[2022-08-27] MEDS: ISOSORBIDE MONONITRATE ER 30 MG TAB.ER.24H PO SCH (07:31)
[2022-08-27] MEDS: clonazePAM 0.5 MG TAB PO SCH ×3 (07:31→21:21)
[2022-08-27] MEDS: HYDROcodone/APAP 7.5-325MG 1 EACH TAB PO PRN ×2 (07:31→16:55)
[2022-08-27] MEDS: METOPROLOL TARTRATE 25 MG TAB PO SCH ×3 (07:32→21:21)
[2022-08-27] MEDS: EZETIMIBE 10 MG TAB PO SCH (07:32)
[2022-08-27] MEDS: GABAPENTIN 400 MG CAP PO SCH ×3 (07:32→21:21)
[2022-08-27] MEDS: APIXABAN 5 MG TAB PO SCH ×2 (07:32→21:21)
[2022-08-27] MEDS: ATORVASTATIN 40 MG TAB PO SCH (07:32)
[2022-08-27] MEDS: LORATADINE 10 MG TAB PO SCH (07:32)
[2022-08-27] MEDS: VERAPAMIL SR 120 MG TABLET.ER PO SCH ×2 (07:32→21:21)
[2022-08-27] MEDS: metFORMIN 500 MG TAB PO SCH ×2 (07:32→21:22)
[2022-08-27] MEDS: AMIODARONE 200 MG TAB PO SCH (07:32)
[2022-08-27] MEDS: SYMBICORT 160-4.5 MCG INHALER INHALATION SCH ×2 (08:05→19:45)
--- NOTE | 2022-08-27 10:43 | P.CRDCN ---
History of Present Illness Consult date: 08/27/22 History of present illness: History of present illness: Patient is a 57-year-old male patient of Dr. Thomas Ayon with significant past medical history of COPD, GERD, paroxysmal atrial fibrillation on eliquis, hypertension, hyperlipidemia, seizure disorder, diabetes, hypothyroidism, obstructive sleep apnea, bipolar, former smoker quit 04/30 he was admitted 06/16/22 for respiratory distress. Cardiology was consulted by pulmonary medicine requesting the patient can be weaned off amiodarone due to his chronic respiratory status. Patient has a history of interstitial lung disease with variant of cryptogenic organizing pneumonitis requiring high-dose prednisone. Patient currently denies any chest pain, shortness of breath, no palpitations. No lightheadedness or dizziness. He was transferred from [facility] due to hypoxia and difficulty breathing requiring BiPAP. Patient subsequently been started on DuoNeb treatments, IV Lasix and IV Solu-Medrol as well as antibiotics. EKG sinus rhythm Telemetry sinus rhythm in the 50s and 60s Chest x-ray bilateral multifocal edema and/or infiltrates redemonstrated. WBC 7.3, hemoglobin 7.4, platelet count 145. BUN 21 creatinine 0.66, potassium 4.0. Pro-calcitonin 0.2. Troponin negative 1. Influenza testing negative. Home cardiac medications amiodarone 200 mg twice daily, eliquis 5 mg twice daily, atorvastatin 40 mg daily, Saturday at 10 mg daily, Lasix 40 mg every 48 hours, Imdur 30 mg daily, Lopressor 25 mg 3 times daily, verapamil 120 mg twice daily REVIEW OF SYSTEMS: No fever or chills. No cough or expectoration. No diaphoresis. Patient denies headache, dizziness, blurred vision, double vision. Patient denies any stomach discomfort. No nausea, vomiting. No hematochezia. No hematemesis. Denies any black stools or blood in his stools. Denies dysuria or hematuria. No muscle weakness or numbness. No chest pain or pressure. PHYSICAL EXAMINATION: This is a 57-year-old male. HEENT: Head is atraumatic, normocephalic. Pupils are equal, round. Sclerae anicteric. Conjunctivae are clear. Mucous membranes of the mouth are moist. Neck is supple. There is no jugular venous distention. No carotid bruit is heard. CHEST EXAMINATION: Coarse crackles bilaterally. No chest wall tenderness is noted on palpation or with deep breathing. HEART EXAMINATION: Heart regular rate and rhythm. S1, S2 heard. No murmurs, gallops or rub. ABDOMEN: Soft, nontender. Bowel sounds are heard. EXTREMITIES: 2+ peripheral pulses with no evidence of peripheral edema and no calf tenderness noted. NEUROLOGIC EXAMINATION: Patient is awake, alert and oriented x3. IMPRESSION AND PLAN: Paroxysmal atrial fibrillation, currently in sinus rhythm Acute on chronic hypoxic respiratory failure Cicatricial organizing pneumonia Hypertension Hyperlipidemia Interstitial lung disease COPD Diabetes PLAN: Continue patient's home cardiac medications except for amiodarone Decrease amiodarone to 100 mg daily Obtain 2-D echocardiogram Further recommendations as patient progresses. Thank you kindly for this consultation. Nurse practitioner note has been reviewed, I agree with the documented findings and plan of care. Patient was seen and examined. Past Medical History Past Medical History: Coronary Artery Disease (CAD), COPD, GERD/Reflux, Hyperlipidemia, Hypertension, Memory Impairment, Pneumonia, Respiratory Disorder, Seizure Disorder, Skin Disorder, Sleep Apnea/CPAP/BIPAP Additional Past Medical History / Comment(s): FREQUENT VOMITING. HX ABSCESSES ON LEGS WITH MRSA, HX MRSA ON FACE, NECK, RIGHT THIGH AND LEFT CALF. CELLULTIS. HX SEIZURE X2, LAST IN 2011(BIT PART OF TONGUE OFF). HX BACK FRACTURE(2002), HX L1 COMPRESSION FRACTURE. ENLARGED HEART. CHRONIC BRONCHITIS. History of Any Multi-Drug Resistant Organisms: MRSA Date of last positivie culture/infection: 03/07/16 MDRO Source:: LEFT LEG Past Surgical History: Adenoidectomy, Appendectomy, Cholecystectomy, Heart Catheterization, Hernia Repair, Tonsillectomy Additional Past Surgical History / Comment(s): ABD HERNIA REPAIR X3, VENTRAL HERNIA REPAIR, LAP BAND, LAP REMOVAL OF LAP BAND AND PORT, COLONOSCOPY, EGD, EXCISION OF MRSA FROM FACE, NECK AND LEGS. UP3 surgery Past Anesthesia/Blood Transfusion Reactions: Previous Problems w/ Anesthesia Additional Past Anesthesia/Blood Transfusion Reaction / Comment(s): 1985 DURING TONSILLECTOMY AND ADENOIDECTOMY DEVELOPED FLUID IN LUNGS, WAS PUT ON VENT. Past Psychological History: Bipolar, Depression Additional Psychological History / Comment(s): . Smoking Status: Former smoker Past Alcohol Use History: None Reported Additional Past Alcohol Use History / Comment(s): HX OF SMOKING OFF/ON SINCE AGE 12, UP TO 1 PPD. Past Drug Use History: Cocaine, Marijuana Additional Drug Use History / Comment(s): previous marijuana and cocaine, no coke use for 20 years - Past Family History Mother Family Medical History: No Reported History Additional Family Medical History / Comment(s): PT STATED MOM IS HEALTHY Father Family Medical History: Cancer Additional Family Medical History / Comment(s): LYMPHOMA. Medications and Allergies Home Medications Medication Instructions Recorded Confirmed Type Omeprazole 20 mg PO DAILY 01/08/19 08/25/22 History Cetirizine HCl 10 mg PO DAILY 09/06/21 08/25/22 History Donepezil [Aricept] 5 mg PO HS 09/06/21 08/25/22 History Isosorbide Mononitrate ER [Imdur] 30 mg PO DAILY 09/06/21 08/25/22 History Sertraline HCl [Zoloft] 200 mg PO DAILY 09/06/21 08/25/22 History traZODone HCL 150 mg PO HS PRN 09/06/21 08/25/22 History Atorvastatin Calcium [Lipitor] 40 mg PO DAILY 05/03/22 08/25/22 History Ezetimibe [Zetia] 10 mg PO DAILY #30 tab 05/14/22 08/25/22 Rx Furosemide [Lasix] 40 mg PO Q48H #30 tab 06/11/22 08/25/22 Rx metFORMIN HCL [Glucophage] 500 mg PO BID #60 tab 06/11/22 08/25/22 Rx Budesonide-Formot 160-4.5 Mcg 1 puff INHALATION RT-BID 06/16/22 08/25/22 History [Symbicort 160-4.5 Mcg Inhaler] Apixaban [Eliquis] 5 mg PO BID tab 07/03/22 08/25/22 Rx Gabapentin [Neurontin] 400 mg PO TID #9 cap 07/03/22 08/25/22 Rx HYDROcodone/APAP 7.5-325MG [[place] 1 tab PO TID PRN #3 tab 07/03/22 08/25/22 Rx 7.5-325] Linagliptin [Tradjenta] 5 mg PO DAILY tab 07/03/22 08/25/22 Rx Verapamil Sr [Isoptin Sr] 120 mg PO BID tab 07/03/22 08/25/22 Rx haloperidoL 2 mg PO DAILY #2 tab 07/03/22 08/25/22 Rx Amiodarone [Cordarone] 200 mg PO BID 08/25/22 08/25/22 History Insulin Glargine,Hum.rec.anlog 15 units SQ BID 08/25/22 08/25/22 History [Lantus Solostar Pen] Insulin Lispro [humaLOG Kwikpen] See Protocol SQ ACHS 08/25/22 08/25/22 History Ipratropium-Albuterol Nebulize 3 ml INHALATION RT-Q6H PRN 08/25/22 08/25/22 History [Duoneb 0.5 mg-3 mg/3 ml Soln] Loratadine 10 mg PO DAILY 08/25/22 08/25/22 History Metoprolol Tartrate [Lopressor] 25 mg PO TID 08/25/22 08/25/22 History Tamsulosin HCl [Flomax] 0.4 mg PO DAILY 08/25/22 08/25/22 History clonazePAM [KlonoPIN] 0.5 mg PO TID 08/25/22 08/25/22 History predniSONE [Deltasone] 20 mg PO DAILY 08/25/22 08/25/22 History Allergies Allergy/AdvReac Type Severity Reaction Status Date / Time No Known Allergies Allergy Verified 08/25/22 15:32 Physical Exam Vitals: Vital Signs Temp Pulse Pulse Resp BP Pulse Ox 08/27/22 08:18 60 08/27/22 08:06 56 L 93 L 08/27/22 07:23 98.2 F 60 24 133/75 90 L 08/27/22 04:00 59 L 20 106/64 95 08/27/22 02:00 50 L 18 08/27/22 00:00 61 20 108/66 95 08/26/22 20:00 97.8 F 62 18 96/61 96 08/26/22 16:28 97.7 F 66 18 102/61 96 08/26/22 12:15 97.6 F 61 18 103/62 92 L 08/26/22 08:57 93 L Intake and Output 08/26/22 08/27/22 08/27/22 22:59 06:59 14:59 Intake Total 418 Output Total 300 Balance 418 -300 Intake: Oral 418 Output: Urine 300 Other: Weight 104.5 kg Results 08/26/22 07:30 08/26/22 07:30 Cardiac Enzymes 08/26/22 Range/Units 07:30 AST 22 (17-59) U/L Comprehensive Metabolic Panel 08/26/22 Range/Units 07:30 Sodium 140 (137-145) mmol/L Potassium 4.0 (3.5-5.1) mmol/L Chloride 98 (98-107) mmol/L Carbon Dioxide 39 H (22-30) mmol/L BUN 21 H (9-20) mg/dL Creatinine 0.66 (0.66-1.25) mg/dL Glucose 221 H (74-99) mg/dL Calcium 7.7 L (8.4-10.2) mg/dL AST 22 (17-59) U/L ALT 31 (4-49) U/L Alkaline Phosphatase 90 (38-126) U/L Total Protein 4.7 L (6.3-8.2) g/dL Albumin 2.4 L (3.5-5.0) g/dL Current Medications Generic Name Dose Route Start Last Admin Trade Name Freq PRN Reason Stop Dose Admin Hydrocodone Bitart/Acetaminophen 1 each 08/25/22 23:51 08/27/22 07:31 Hydrocodone/Apap 7.5-325mg 1 Each Tab PO 1 each TID PRN Administration Pain Albuterol/Ipratropium 3 ml 08/25/22 23:51 08/27/22 08:05 Ipratropium-Albuterol 3 Ml Neb INHALATION 3 ml RT-Q6H PRN Administration Shortness Of Breath Amiodarone HCl 200 mg 08/25/22 23:45 08/27/22 07:32 Amiodarone 200 Mg Tab PO 200 mg BID MARYLOU Administration Apixaban 5 mg 08/25/22 23:45 08/27/22 07:32 Apixaban 5 Mg Tab PO 5 mg BID MARYLOU Administration Protocol Atorvastatin Calcium 40 mg 08/25/22 09:00 08/27/22 07:32 Atorvastatin 40 Mg Tab PO 40 mg DAILY MARYLOU Administration Budesonide/Formoterol Fumarate 1 puff 08/26/22 08:00 08/27/22 08:05 Symbicort 160-4.5 Mcg Inhaler INHALATION 1 puff RT-BID MARYLOU Administration Clonazepam 0.5 mg 08/25/22 23:45 08/27/22 07:31 Clonazepam 0.5 Mg Tab PO 0.5 mg TID MARYLOU Administration Dextrose/Water 25 ml 08/25/22 23:55 Dextrose 50% Syringe 50 Ml IVP PER PROTOCOL PRN Hypoglycemia Protocol Dextrose/Water 50 ml 08/25/22 23:55 Dextrose 50% Syringe 50 Ml IVP PER PROTOCOL PRN Hypoglycemia Protocol Donepezil HCl 5 mg 08/25/22 23:45 08/26/22 21:52 Donepezil 5 Mg Tab PO 5 mg HS MARYLOU Administration Ezetimibe 10 mg 08/26/22 09:00 08/27/22 07:32 Ezetimibe 10 Mg Tab PO 10 mg DAILY MARYLOU Administration Furosemide 20 mg 08/26/22 16:00 08/27/22 07:31 Furosemide 20 Mg Tab PO 20 mg BID@0900,1600 MARYLOU Administration Gabapentin 400 mg 08/25/22 23:45 08/27/22 07:32 Gabapentin 400 Mg Cap PO 400 mg TID MARYLOU Administration Haloperidol 2 mg 08/26/22 09:00 08/27/22 07:32 Haloperidol 2 Mg Tab PO 2 mg DAILY MARYLOU Administration Insulin Aspart 0 unit 08/26/22 07:30 08/27/22 06:46 Insulin Aspart (Novolog) 100 Unit/Ml Vial SQ 6 unit ACHS MARYLOU Administration Protocol Insulin Detemir 15 unit 08/25/22 23:45 08/27/22 06:45 Insulin Detemir (Levemir) 100 Unit/Ml Syr SQ 15 unit BID@0700,2100 MARYLOU Administration Isosorbide Mononitrate 30 mg 08/26/22 09:00 08/27/22 07:31 Isosorbide Mononitrate Er 30 Mg Tab.Er.24h PO 30 mg DAILY MARYLOU Administration Linagliptin 5 mg 08/26/22 09:00 08/27/22 07:31 Linagliptin 5 Mg Tablet PO 5 mg DAILY MARYLOU Administration Loratadine 10 mg 08/26/22 09:00 08/27/22 07:32 Loratadine 10 Mg Tab PO 10 mg DAILY MARYLOU Administration Metformin HCl 500 mg 08/25/22 23:45 08/27/22 07:32 Metformin 500 Mg Tab PO 500 mg BID MARYLOU Administration Methylprednisolone Sodium Succinate 60 mg 08/26/22 12:00 08/27/22 06:46 Methylprednisolone Sod Succi 125 Mg/2 Ml Vial IV 60 mg Q6HR MARYLOU Administration Metoprolol Tartrate 25 mg 08/25/22 23:45 08/27/22 07:32 Metoprolol Tartrate 25 Mg Tab PO 25 mg TID MARYLOU Administration Naloxone HCl 0.2 mg 08/25/22 16:10 Naloxone 0.4 Mg/Ml 1 Ml Vial IV Q2M PRN Opioid Reversal Pantoprazole Sodium 40 mg 08/26/22 07:30 08/27/22 06:46 Pantoprazole 40 Mg Tablet PO 40 mg [id number] MARYLOU Administration Sertraline HCl 200 mg 08/26/22 09:00 08/27/22 07:31 Sertraline 100 Mg Tab PO 200 mg DAILY MARYLOU Administration Tamsulosin HCl 0.4 mg 08/26/22 09:00 08/27/22 07:31 Tamsulosin 0.4 Mg Cap.Er.24h PO 0.4 mg DAILY MARYLOU Administration Trazodone HCl 150 mg 08/25/22 23:51 08/26/22 00:26 Trazodone Hcl 50 Mg Tab PO 150 mg HS PRN Administration Insomnia Verapamil HCl 120 mg 08/25/22 23:45 08/27/22 07:32 Verapamil Sr 120 Mg Tablet.Er PO 120 mg BID MARYLOU Administration Intake and Output 08/26/22 08/27/22 08/27/22 22:59 06:59 14:59 Intake Total 418 Output Total 300 Balance 418 -300 Intake: Oral 418 Output: Urine 300 Other: Weight 104.5 kg 08/26/22 07:30 08/26/22 07:30
[2022-08-27 11:42] LABS: Glucose,Whole Blood 403 mg/dL (70-110)
--- NOTE | 2022-08-27 13:14 | P.PN ---
Subjective Progress Note Date: 08/27/22 This is a pleasant 57-year-old male patient was hospitalized again yesterday as a transfer from [facility] for worsening shortness of breath. He is known to have schizophrenia, depression, COPD, hypertension, coronary artery disease, CHF with mild impairment of LV function with an ejection fraction of 45-50%. Chronic atrial fibrillation maintained on amiodarone currently at 200 mg twice a day. Anticoagulated with Eliquis. He is known to have chronic hypoxic respiratory failure on 7 L high flow nasal cannula at [facility] and development of diffuse bilateral pulmonary infiltrates. The patient has had multiple hospitalizations. During his hospital stay, he receives an tibiotics and steroids and he improves. 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 He was to be following with us in the office for steroid titration however he has not yet been able to get there. He had been weaned down by his PCP to 20 mg of prednisone daily. His chest x-ray is again showing recurrence of bilateral multifocal edema and/or infiltrates. He is requiring 7 L high flow nasal cannula presently. He was initially on BiPAP 12/6 and 50% FiO2. He is seen today in consultation on the selective care unit. He is currently resting in bed. Awake and alert in no acute distress. He's been afebrile. Hemodynamically stable. White count 7.3. Hemoglobin 7.4. Platelets 145. Sodium 140. Potassium 4.0. Bicarb 39. BUN 21. Creatinine 0.66. Glucose 221. Influenza screen negative. He's been initiated and DuoNeb inhalations, Symbicort, Solu-Medrol at 60 mg IV every 6 hours. The patient is seen today 08/27/2022 in follow-up on the selective care unit. He is currently resting comfortably in bed. Awake and alert in no acute distress. Currently maintaining O2 saturations in the 90s on 8 L high flow nasal cannula. Blood glucose 242. He is continued on DuoNeb inhalations, Symbicort, IV Solu-Medrol. His amiodarone dose was decreased 200 mg per day per cardiology. He is anticoagulated with Eliquis. Remains on oral diuretics. Objective - Vital Signs Vital signs: Vital Signs Temp 98.2 F 08/27/22 07:23 Pulse 60 08/27/22 11:55 Resp 24 08/27/22 11:55 BP 112/67 08/27/22 11:55 Pulse Ox 94 L 08/27/22 11:55 FiO2 50 08/26/22 03:10 Intake & Output 08/26/22 08/27/22 08/27/22 18:59 06:59 18:59 Intake Total 354 300 120 Output Total 300 Balance 354 0 120 Weight 104.5 kg Intake: Oral 354 300 120 Output: Urine 300 Other: Voiding Method Urinal External Catheter # Bowel Movements 0 - Exam GENERAL EXAM: Alert, 57-year-old male patient, on 8 L high flow nasal cannula, comfortable in no apparent distress. HEAD: Normocephalic. EYES: Normal reaction of pupils, equal size. NOSE: Clear with pink turbinates. THROAT: No erythema or exudates. NECK: No masses, no JVD. CHEST: No chest wall deformity. LUNGS: Equal air entry with diffuse coarse crackles bilaterally. CVS: S1 and S2 normal with no audible murmur, regular rhythm. ABDOMEN: No hepatosplenomegaly, normal bowel sounds, no guarding or rigidity. SPINE: No scoliosis or deformity SKIN: No rashes CENTRAL NERVOUS SYSTEM: No focal deficits, tone is normal in all 4 extremities. EXTREMITIES: There is no peripheral edema. No clubbing, no cyanosis. Peripheral pulses are intact. 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 Confirmed by wedge biopsy on 06/11/2022. The patient was to remain on a high-dose of steroids however he presented back here on just 20 mg of prednisone daily. Currently on Solu-Medrol 60 mg every 6 hours Multiple readmissions to the hospital secondary to above and the last discharge was 07/03/2022 Atrial fibrillation, initially on amiodarone 200 mg twice a day. Now decreased to 100 mg daily per cardiology. Anticoagulated with Eliquis Severe underlying COPD Coronary artery disease Mildly impaired systolic dysfunction with mild congestive heart failure Benign essential hypertension Schizophrenia Bipolar disorder Dyslipidemia Obstructive sleep apnea syndrome History of seizure disorder Plan: The patient was seen and evaluated Labs and medications reviewed Continue Solu-Medrol at 60 mg every 6 hours Continue DuoNeb inhalations, Symbicort Continue Lasix 20 mg by mouth twice a day Amiodarone decreased to 100 mg daily per cardiology We also had some concerns regarding amiodarone toxicity lung Continue to titrate the FiO2 as tolerated We will continue to follow I have personally seen and examined the patient, performed the documentation and the assessment and plan as written. Number of minutes spent on the visit: 10.
--- NOTE | 2022-08-27 15:05 | P.HPIM ---
History of Present Illness H&P Date: 08/25/22 Chief Complaint: Short of breath This is a 56-year-old patient, follows with Dr. Carson. Chronic stable medical conditions include GERD, hyperlipidemia, hypertension, seizure disorder, hypothyroid, obstructive sleep apnea not able to use CPAP, bipolar. Smoker- until April 2022. Atrial fibrillation admitted from May 03 through May 142022: - bilateral pneumonia, COPD exacerbation. Received Zosyn. Patient now transferred from [facility] ER with increasing shortness of breath. Also found to be hypoxic. Going on for 2 or 3 days. Was put on BiPAP and DuoNeb treatments. Also given some IV Lasix. Also started on ceftriaxone for possible pneumonia. Apparently at home on 6 L oxygen. Denies any fever and chills. Minimal cough. In the ER rather tired. Just about able to answer questions. Decreased appetite Review of systems: GEN.: Tired, decreased appetite EYES: None HEENT: None NECK: None RESPIRATORY: As above CARDIOVASCULAR: None GASTROINTESTINAL: None GENITOURINARY: None MUSCULOSKELETAL: Some joint pain LYMPHATICS: None HEMATOLOGICAL: None PSYCHIATRY: None NEUROLOGICAL: None Past medical history to include: COPD, GERD, hypertension, hyperlipidemia, some cognitive impairment, seizure disorder, obstructive sleep apnea does not use CPAP, hypothyroid, LAP-BAND with reversal, bipolar, atrial fibrillation Social history: Lives with ex-, Dottie. Smoked For 44 years stopped in April 2022 . 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 [employer]. Physical examination: VITAL SIGNS: 98.4, 67, 22, 94 x 65, 99% on BiPAP GENERAL:, BMI 32.1, reclining in bed, short of breath and weak tired EYES: Pupils equal. Conjunctiva normal. HEENT: External appearance of nose and ears normal, oral cavity grossly normal. NECK: JVD not raised; masses not palpable. HEART: First and second heart sounds are normal; no edema. LUNGS: Respiratory rate increased; decreased breath sounds , ABDOMEN: Soft, nontender, liver spleen not palpable, no masses palpable. PSYCH: Alert and oriented x3; mood and affect. Anxious. MUSCULOSKELETAL:No Clubbing/cyanosis;muscles-grossly intact NEUROLOGICAL: Cranials grossly intact, pulses sensation grossly intact LYMPHATICS: No lymph nodes palpable neck and axilla INVESTIGATIONS, reviewed in the clinical context: Previous studies: 2-D echocardiogram: April 2022 EF 55-60%. Moderate LVH. Lung biopsy: 06/08/2022: Organizing pneumonia with some fibrotic features/cicatrix Assessment and plan: -Acute COPD exacerbation in a previous smoker: DuoNeb, Symbicort IV Solu-Medrol -Acute exacerbation Cicatracial organizing pneumonia per lung biopsy on 06/08/2022. Steroids per pulmonary -Acute hypoxic respiratory failure from pneumonia: Requiring BiPAP - paroxysmal atrial fibrillation-sinus rhythm.: Verapamil SR 120 mg twice a day. Eliquis. Lopressor 25 mg 3 times a day - chronic hypoxic respiratory failure from COPD/organizing pneumonia Home on 6 L of oxygen -Hyperlipidemia Lipitor 40 mg a day -Hyperglycemia secondary to steroids.: Metformin, Lantus 50 units subcu twice a day. Follow Accu-Cheks -Mild cognitive impairment Aricept -GERD PPI -Bipolar disorder Klonopin 0.5 mg 3 times a day, t Haldol -Essential hypertension Verapamil, Lopressor -No code - Steroids per pulmonary. DuoNeb. Home medications continued. BiPAP. Consultation to pulmonary. Discussed with patient Past Medical History Past Medical History: Coronary Artery Disease (CAD), COPD, GERD/Reflux, Hyperlipidemia, Hypertension, Memory Impairment, Pneumonia, Respiratory Disorder, Seizure Disorder, Skin Disorder, Sleep Apnea/CPAP/BIPAP Additional Past Medical History / Comment(s): FREQUENT VOMITING. HX ABSCESSES ON LEGS WITH MRSA, HX MRSA ON FACE, NECK, RIGHT THIGH AND LEFT CALF. CELLULTIS. HX SEIZURE X2, LAST IN 2011(BIT PART OF TONGUE OFF). HX BACK FRACTURE(2002), HX L1 COMPRESSION FRACTURE. ENLARGED HEART. CHRONIC BRONCHITIS. History of Any Multi-Drug Resistant Organisms: MRSA Date of last positivie culture/infection: 03/07/16 MDRO Source:: LEFT LEG Past Surgical History: Adenoidectomy, Appendectomy, Cholecystectomy, Heart Catheterization, Hernia Repair, Tonsillectomy Additional Past Surgical History / Comment(s): ABD HERNIA REPAIR X3, VENTRAL HERNIA REPAIR, LAP BAND, LAP REMOVAL OF LAP BAND AND PORT, COLONOSCOPY, EGD, EXCISION OF MRSA FROM FACE, NECK AND LEGS. UP3 surgery Past Anesthesia/Blood Transfusion Reactions: Previous Problems w/ Anesthesia Additional Past Anesthesia/Blood Transfusion Reaction / Comment(s): 1985 DURING TONSILLECTOMY AND ADENOIDECTOMY DEVELOPED FLUID IN LUNGS, WAS PUT ON VENT. Past Psychological History: Bipolar, Depression Smoking Status: Current some day smoker Past Alcohol Use History: None Reported Past Drug Use History: Cocaine, Marijuana - Past Family History Mother Family Medical History: No Reported History Additional Family Medical History / Comment(s): PT STATED MOM IS HEALTHY Father Family Medical History: Cancer Additional Family Medical History / Comment(s): LYMPHOMA. Medications and Allergies Home Medications Medication Instructions Recorded Confirmed Type Omeprazole 20 mg PO DAILY 01/08/19 08/25/22 History Cetirizine HCl 10 mg PO DAILY 09/06/21 08/25/22 History Donepezil [Aricept] 5 mg PO HS 09/06/21 08/25/22 History Isosorbide Mononitrate ER [Imdur] 30 mg PO DAILY 09/06/21 08/25/22 History Sertraline HCl [Zoloft] 200 mg PO DAILY 09/06/21 08/25/22 History traZODone HCL 150 mg PO HS PRN 09/06/21 08/25/22 History Atorvastatin Calcium [Lipitor] 40 mg PO DAILY 05/03/22 08/25/22 History Ezetimibe [Zetia] 10 mg PO DAILY #30 tab 05/14/22 08/25/22 Rx Furosemide [Lasix] 40 mg PO Q48H #30 tab 06/11/22 08/25/22 Rx metFORMIN HCL [Glucophage] 500 mg PO BID #60 tab 06/11/22 08/25/22 Rx Budesonide-Formot 160-4.5 Mcg 1 puff INHALATION RT-BID 06/16/22 08/25/22 History [Symbicort 160-4.5 Mcg Inhaler] Apixaban [Eliquis] 5 mg PO BID tab 07/03/22 08/25/22 Rx Gabapentin [Neurontin] 400 mg PO TID #9 cap 07/03/22 08/25/22 Rx HYDROcodone/APAP 7.5-325MG [[place] 1 tab PO TID PRN #3 tab 07/03/22 08/25/22 Rx 7.5-325] Linagliptin [Tradjenta] 5 mg PO DAILY tab 07/03/22 08/25/22 Rx Verapamil Sr [Isoptin Sr] 120 mg PO BID tab 07/03/22 08/25/22 Rx haloperidoL 2 mg PO DAILY #2 tab 07/03/22 08/25/22 Rx Amiodarone [Cordarone] 200 mg PO BID 08/25/22 08/25/22 History Insulin Glargine,Hum.rec.anlog 15 units SQ BID 08/25/22 08/25/22 History [Lantus Solostar Pen] Insulin Lispro [humaLOG Kwikpen] See Protocol SQ ACHS 08/25/22 08/25/22 History Ipratropium-Albuterol Nebulize 3 ml INHALATION RT-Q6H PRN 08/25/22 08/25/22 History [Duoneb 0.5 mg-3 mg/3 ml Soln] Loratadine 10 mg PO DAILY 08/25/22 08/25/22 History Metoprolol Tartrate [Lopressor] 25 mg PO TID 08/25/22 08/25/22 History Tamsulosin HCl [Flomax] 0.4 mg PO DAILY 08/25/22 08/25/22 History clonazePAM [KlonoPIN] 0.5 mg PO TID 08/25/22 08/25/22 History predniSONE [Deltasone] 20 mg PO DAILY 08/25/22 08/25/22 History Allergies Allergy/AdvReac Type Severity Reaction Status Date / Time No Known Allergies Allergy Verified 08/25/22 15:32 Physical Exam Vitals: Vital Signs Temp Pulse Resp BP Pulse Ox FiO2 08/25/22 15:02 67 08/25/22 14:49 63 08/25/22 14:22 65 24 100/72 95 08/25/22 13:56 22 08/25/22 13:52 60 08/25/22 13:49 98.4 F 67 22 94/65 99 Intake and Output 08/25/22 08/25/22 08/25/22 06:59 14:59 22:59 Other: Weight 90.718 kg Results CBC & Chem 7: 08/26/22 07:30 08/26/22 07:30
--- NOTE | 2022-08-27 15:16 | P.PN ---
Progress Note - Text Progress Note Date: 08/26/22 Chief Complaint: Short of breath This is a 56-year-old patient, follows with Dr. Carson. Chronic stable medical conditions include GERD, hyperlipidemia, hypertension, seizure disorder, hypothyroid, obstructive sleep apnea not able to use CPAP, bipolar. Smoker- until April 2022. Atrial fibrillation admitted from May 03 through May 142022: - bilateral pneumonia, COPD exacerbation. Received Zosyn. Patient now transferred from [facility] ER with increasing shortness of breath. Also found to be hypoxic. Going on for 2 or 3 days. Was put on BiPAP and DuoNeb treatments. Also given some IV Lasix. Also started on ceftriaxone for possible pneumonia. Apparently at home on 6 L oxygen. Denies any fever and chills. Minimal cough. In the ER rather tired. Just about able to answer questions. Decreased appetite Admitted with COPD exacerbation, acute hypoxic respiratory failure, possible pneumonia, exacerbation of organizing pneumonia August 26: Laying in bed. 7 L high flow nasal cannula. Breathing a bit better. IV Solu-Medrol. Eating better. Tired. Current medications reviewed Past medical history to include: COPD, GERD, hypertension, hyperlipidemia, some cognitive impairment, seizure disorder, obstructive sleep apnea does not use CPAP, hypothyroid, LAP-BAND with reversal, bipolar, atrial fibrillation Social history: Lives with ex-, Dottie. Smoked For 44 years stopped in April 2022 . 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 [employer]. Physical examination: VITAL SIGNS: 97.8, 57, 19, 104/72, 91% on 7 L GENERAL:, BMI 32.1, reclining in bed, short of breath and weak tired EYES: Pupils equal. Conjunctiva normal. HEENT: External appearance of nose and ears normal, oral cavity grossly normal. NECK: JVD not raised; masses not palpable. HEART: First and second heart sounds are normal; no edema. LUNGS: Respiratory rate increased; decreased breath sounds , but able to speak in full sentences ABDOMEN: Soft, nontender, liver spleen not palpable, no masses palpable. PSYCH: Alert and oriented x3; mood and affect. Anxious. MUSCULOSKELETAL:No Clubbing/cyanosis;muscles-grossly intact NEUROLOGICAL: Cranials grossly intact, pulses sensation grossly intact LYMPHATICS: No lymph nodes palpable neck and axilla INVESTIGATIONS, reviewed in the clinical context: White count 7.3 hemoglobin 7.4 platelets 145 potassium 4 creatinine 0.66 procalcitonin 0.20 Influenza type A, type B: Not detected EKG tracing personally reviewed by me-normal sinus rhythm. Some ST-T wave changes. Chest x-ray film personally reviewed by me-bilateral infiltrates Previous studies: 2-D echocardiogram: April 2022 EF 55-60%. Moderate LVH. Lung biopsy: 06/08/2022: Organizing pneumonia with some fibrotic features/cicatrix Assessment and plan: -Acute COPD exacerbation in a previous smoker: Slow to respond DuoNeb, Symbicort IV Solu-Medrol -Acute exacerbation Cicatracial organizing pneumonia per lung biopsy on 06/08/2022. IV Solu-Medrol -Acute hypoxic respiratory failure from pneumonia: Slow to respond Requiring BiPAP. This morning 7 L - paroxysmal atrial fibrillation-sinus rhythm.: Verapamil SR 120 mg twice a day. Eliquis. Lopressor 25 mg 3 times a day - chronic hypoxic respiratory failure from COPD/organizing pneumonia Home on 6 L of oxygen -Hyperlipidemia Lipitor 40 mg a day -Hyperglycemia secondary to steroids.: Lantus 15 units subcu twice a day. Follow Accu-Cheks -Mild cognitive impairment Aricept -GERD PPI -Bipolar disorder Klonopin 0.5 mg 3 times a day, Haldol -Essential hypertension Verapamil, Lopressor -No code - -Oxygen 7 L. Oral intake fair. IV Solu-Medrol Other medications to continue. Discussed
[2022-08-27] MEDS: IPRATROPIUM-ALBUTEROL 3 ML NEB INHALATION SCH ×3 (15:25→23:25)
--- NOTE | 2022-08-27 16:02 | P.PN ---
Progress Note - Text Progress Note Date: 08/27/22 Chief Complaint: Short of breath This is a 56-year-old patient, follows with Dr. Carson. Chronic stable medical conditions include GERD, hyperlipidemia, hypertension, seizure disorder, hypothyroid, obstructive sleep apnea not able to use CPAP, bipolar. Smoker- until April 2022. Atrial fibrillation admitted from May 03 through May 142022: - bilateral pneumonia, COPD exacerbation. Received Zosyn. Patient now transferred from [facility] ER with increasing shortness of breath. Also found to be hypoxic. Going on for 2 or 3 days. Was put on BiPAP and DuoNeb treatments. Also given some IV Lasix. Also started on ceftriaxone for possible pneumonia. Apparently at home on 6 L oxygen. Denies any fever and chills. Minimal cough. In the ER rather tired. Just about able to answer questions. Decreased appetite Admitted with COPD exacerbation, acute hypoxic respiratory failure, possible pneumonia, exacerbation of organizing pneumonia August 26: Laying in bed. 7 L high flow nasal cannula. Breathing a bit better. IV Solu-Medrol. Eating better. Tired. August 27: Reclining in bed. She may short of breath. 7 L high flow nasal cannula. Patient was seen by currently. Amiodarone decreased to 100 mg a day because of concern for involvement for lung cannot be ruled out. Eating well. Active Medications Hydrocodone Bitart/Acetaminophen (Hydrocodone/Apap 7.5-325mg 1 Each Tab) 1 each PO TID PRN PRN Reason: Pain Last Admin: 08/27/22 07:31 Dose: 1 each Albuterol/Ipratropium (Ipratropium-Albuterol 3 Ml Neb) 3 ml INHALATION RT-Q6H PRN PRN Reason: Shortness Of Breath Last Admin: 08/27/22 08:05 Dose: 3 ml Albuterol/Ipratropium (Ipratropium-Albuterol 3 Ml Neb) 3 ml INHALATION RT-Q4H [facility] Last Admin: 08/27/22 15:25 Dose: 3 ml Amiodarone HCl (Amiodarone 100 Mg Tab) 100 mg PO DAILY MARYLOU Apixaban (Apixaban 5 Mg Tab) 5 mg PO BID [facility]; Protocol Last Admin: 08/27/22 07:32 Dose: 5 mg Atorvastatin Calcium (Atorvastatin 40 Mg Tab) 40 mg PO DAILY [facility] Last Admin: 08/27/22 07:32 Dose: 40 mg Budesonide/Formoterol Fumarate (Symbicort 160-4.5 Mcg Inhaler) 1 puff INHALATION RT-BID [facility] Last Admin: 08/27/22 08:05 Dose: 1 puff Clonazepam (Clonazepam 0.5 Mg Tab) 0.5 mg PO TID [facility] Last Admin: 08/27/22 15:47 Dose: 0.5 mg Dextrose/Water (Dextrose 50% Syringe 50 Ml) 25 ml IVP PER PROTOCOL PRN; Protocol PRN Reason: Hypoglycemia Dextrose/Water (Dextrose 50% Syringe 50 Ml) 50 ml IVP PER PROTOCOL PRN; Protocol PRN Reason: Hypoglycemia Donepezil HCl (Donepezil 5 Mg Tab) 5 mg PO HS [facility] Last Admin: 08/26/22 21:52 Dose: 5 mg Ezetimibe (Ezetimibe 10 Mg Tab) 10 mg PO DAILY [facility] Last Admin: 08/27/22 07:32 Dose: 10 mg Furosemide (Furosemide 20 Mg Tab) 20 mg PO BID@0900,1600 [facility] Last Admin: 08/27/22 15:47 Dose: 20 mg Gabapentin (Gabapentin 400 Mg Cap) 400 mg PO TID [facility] Last Admin: 08/27/22 15:47 Dose: 400 mg Haloperidol (Haloperidol 2 Mg Tab) 2 mg PO DAILY [facility] Last Admin: 08/27/22 07:32 Dose: 2 mg Insulin Aspart (Insulin Aspart (Novolog) 100 Unit/Ml Vial) 0 unit SQ ACHS [facility]; Protocol Last Admin: 08/27/22 12:01 Dose: 18 unit Insulin Detemir (Insulin Detemir (Levemir) 100 Unit/Ml Syr) 15 unit SQ BID@0700,2100 [facility] Last Admin: 08/27/22 06:45 Dose: 15 unit Isosorbide Mononitrate (Isosorbide Mononitrate Er 30 Mg Tab.Er.24h) 30 mg PO DAILY [facility] Last Admin: 08/27/22 07:31 Dose: 30 mg Linagliptin (Linagliptin 5 Mg Tablet) 5 mg PO DAILY [facility] Last Admin: 08/27/22 07:31 Dose: 5 mg Loratadine (Loratadine 10 Mg Tab) 10 mg PO DAILY [facility] Last Admin: 08/27/22 07:32 Dose: 10 mg Metformin HCl (Metformin 500 Mg Tab) 500 mg PO BID [facility] Last Admin: 08/27/22 07:32 Dose: 500 mg Methylprednisolone Sodium Succinate (Methylprednisolone Sod Succi 125 Mg/2 Ml Vial) 60 mg IV Q6HR [facility] Last Admin: 08/27/22 11:57 Dose: 60 mg Metoprolol Tartrate (Metoprolol Tartrate 25 Mg Tab) 25 mg PO TID [facility] Last Admin: 08/27/22 15:47 Dose: 25 mg Naloxone HCl (Naloxone 0.4 Mg/Ml 1 Ml Vial) 0.2 mg IV Q2M PRN PRN Reason: Opioid Reversal Pantoprazole Sodium (Pantoprazole 40 Mg Tablet) 40 mg PO AC-BRKFST [facility] Last Admin: 08/27/22 06:46 Dose: 40 mg Sertraline HCl (Sertraline 100 Mg Tab) 200 mg PO DAILY [facility] Last Admin: 08/27/22 07:31 Dose: 200 mg Tamsulosin HCl (Tamsulosin 0.4 Mg Cap.Er.24h) 0.4 mg PO DAILY [facility] Last Admin: 08/27/22 07:31 Dose: 0.4 mg Trazodone HCl (Trazodone Hcl 50 Mg Tab) 150 mg PO HS PRN PRN Reason: Insomnia Last Admin: 08/26/22 00:26 Dose: 150 mg Verapamil HCl (Verapamil Sr 120 Mg Tablet.Er) 120 mg PO BID [facility] Last Admin: 08/27/22 07:32 Dose: 120 mg Past medical history to include: COPD, GERD, hypertension, hyperlipidemia, some cognitive impairment, seizure disorder, obstructive sleep apnea does not use CPAP, hypothyroid, LAP-BAND with reversal, bipolar, atrial fibrillation Social history: Lives with ex-, Dottie. Smoked For 44 years stopped in April 2022 . 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 Conjunctiva normal. HEENT: External appearance of nose and ears normal, oral cavity grossly normal. NECK: JVD not raised; masses not palpable. HEART: First and second heart sounds are normal; no edema. LUNGS: Respiratory rate increased; decreased breath sounds , but able to speak in full sentences ABDOMEN: Soft, nontender, liver spleen not palpable, no masses palpable. PSYCH: Alert and oriented x3; mood and affect. Anxious. MUSCULOSKELETAL:No Clubbing/cyanosis;muscles-grossly intact NEUROLOGICAL: Cranials grossly intact, pulses sensation grossly intact LYMPHATICS: No lymph nodes palpable neck and axilla INVESTIGATIONS, reviewed in the clinical context: White count 7.3 hemoglobin 7.4 platelets 145 potassium 4 creatinine 0.66 procalcitonin 0.20 Influenza type A, type B: Not detected EKG tracing personally reviewed by me-normal sinus rhythm. Some ST-T wave changes. Chest x-ray film personally reviewed by me-bilateral infiltrates Previous studies: 2-D echocardiogram: April 2022 EF 55-60%. Moderate LVH. Lung biopsy: 06/08/2022: Organizing pneumonia with some fibrotic features/cicatrix Assessment and plan: -Acute COPD exacerbation in a previous smoker: Slow to respond DuoNeb, Symbicort IV Solu-Medrol -Acute exacerbation Cicatracial organizing pneumonia per lung biopsy on 06/09/19 23. IV Solu-Medrol -Acute hypoxic respiratory failure from pneumonia: Slow to respond Currently 7 L - paroxysmal atrial fibrillation-sinus rhythm.: Verapamil SR 120 mg twice a day. Eliquis. Lopressor 25 mg 3 times a day - chronic hypoxic respiratory failure from COPD/organizing pneumonia Home on 6 L of oxygen -Hyperlipidemia Lipitor 40 mg a day -Hyperglycemia secondary to steroids.: Lantus 15 units subcu twice a day. Follow Accu-Cheks -Mild cognitive impairment Aricept -GERD PPI -Bipolar disorder Klonopin 0.5 mg 3 times a day, Haldol -Essential hypertension Verapamil, Lopressor -No code - -Oxygen 7 L. Oral intake good. IV Solu-Medrol Other medications to continue. Discussed. Follow with pulmonary. Up in chair
[2022-08-27] MEDS ORDERED: INSULIN REGULAR 100 UNIT/ML VIAL (IM/SQ) SQ ONE (16:30)
[2022-08-27 16:41] LABS: Glucose,Whole Blood 314 mg/dL (70-110)
[2022-08-27 20:12] LABS: Glucose,Whole Blood 236 mg/dL (70-110)
[2022-08-27] MEDS ORDERED: INSULIN DETEMIR (LEVEMIR) 100 UNIT/ML SYR SQ SCH (21:00)
[2022-08-27] MEDS: DONEPEZIL 5 MG TAB PO SCH (21:21)
[2022-08-28] MEDS: IPRATROPIUM-ALBUTEROL 3 ML NEB INHALATION SCH ×5 (03:35→22:03)
[2022-08-28 06:06] LABS: Glucose,Whole Blood 207 mg/dL (70-110)
[2022-08-28] MEDS: methylPREDNISolone SOD SUCCI 125 MG/2 ML VIAL IV SCH ×4 (06:31→23:49)
[2022-08-28] MEDS: INSULIN ASPART (NovoLOG) 100 UNIT/ML VIAL SQ SCH ×4 (06:31→20:43)
[2022-08-28] MEDS: PANTOPRAZOLE 40 MG TABLET PO SCH (06:32)
[2022-08-28] MEDS: SYMBICORT 160-4.5 MCG INHALER INHALATION SCH ×2 (07:50→22:02)
[2022-08-28] MEDS: FUROSEMIDE 20 MG TAB PO SCH ×2 (08:37→15:05)
[2022-08-28] MEDS: ATORVASTATIN 40 MG TAB PO SCH (08:37)
[2022-08-28] MEDS: TAMSULOSIN 0.4 MG CAP.ER.24H PO SCH (08:37)
[2022-08-28] MEDS: SERTRALINE 100 MG TAB PO SCH (08:37)
[2022-08-28] MEDS: HYDROcodone/APAP 7.5-325MG 1 EACH TAB PO PRN ×2 (08:37→16:49)
[2022-08-28] MEDS: APIXABAN 5 MG TAB PO SCH ×2 (08:37→20:13)
[2022-08-28] MEDS: ISOSORBIDE MONONITRATE ER 30 MG TAB.ER.24H PO SCH (08:38)
[2022-08-28] MEDS: LINAGLIPTIN 5 MG TABLET PO SCH (08:38)
[2022-08-28] MEDS: LORATADINE 10 MG TAB PO SCH (08:38)
[2022-08-28] MEDS: clonazePAM 0.5 MG TAB PO SCH ×3 (08:38→20:13)
[2022-08-28] MEDS: GABAPENTIN 400 MG CAP PO SCH ×3 (08:38→20:12)
[2022-08-28] MEDS: METOPROLOL TARTRATE 25 MG TAB PO SCH ×3 (08:38→20:12)
[2022-08-28] MEDS: EZETIMIBE 10 MG TAB PO SCH (08:38)
[2022-08-28] MEDS: VERAPAMIL SR 120 MG TABLET.ER PO SCH ×2 (08:39→20:13)
[2022-08-28] MEDS: AMIODARONE 100 MG TAB PO SCH (08:39)
[2022-08-28] MEDS: BENZOCAINE/MENTHOL LOZENG 1 EACH LOZENGE MUCOUS MEM PRN (09:36)
--- NOTE | 2022-08-28 11:29 | P.PN ---
Subjective Progress Note Date: 08/28/22 This is a pleasant 57-year-old male patient was hospitalized again yesterday as a transfer from [facility] for worsening shortness of breath. He is known to have schizophrenia, depression, COPD, hypertension, coronary artery disease, CHF with mild impairment of LV function with an ejection fraction of 45-50%. Chronic atrial fibrillation maintained on amiodarone currently at 200 mg twice a day. Anticoagulated with Eliquis. He is known to have chronic hypoxic respiratory failure on 7 L high flow nasal cannula at [facility] and development of diffuse bilateral pulmonary infiltrates. The patient has had multiple hospitalizations. During his hospital stay, he receives an tibiotics and steroids and he improves. 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 He was to be following with us in the office for steroid titration however he has not yet been able to get there. He had been weaned down by his PCP to 20 mg of prednisone daily. His chest x-ray is again showing recurrence of bilateral multifocal edema and/or infiltrates. He is requiring 7 L high flow nasal cannula presently. He was initially on BiPAP 12/6 and 50% FiO2. He is seen today in consultation on the selective care unit. He is currently resting in bed. Awake and alert in no acute distress. He's been afebrile. Hemodynamically stable. White count 7.3. Hemoglobin 7.4. Platelets 145. Sodium 140. Potassium 4.0. Bicarb 39. BUN 21. Creatinine 0.66. Glucose 221. Influenza screen negative. He's been initiated and DuoNeb inhalations, Symbicort, Solu-Medrol at 60 mg IV every 6 hours. The patient is seen today 08/27/2022 in follow-up on the selective care unit. He is currently resting comfortably in bed. Awake and alert in no acute distress. Currently maintaining O2 saturations in the 90s on 8 L high flow nasal cannula. Blood glucose 242. He is continued on DuoNeb inhalations, Symbicort, IV Solu-Medrol. His amiodarone dose was decreased 200 mg per day per cardiology. He is anticoagulated with Eliquis. Remains on oral diuretics. Patient is seen today 08/28/2022 in follow-up on the selective care unit. He is awake and alert in no acute distress. Currently resting quite comfortably in bed. Maintaining O2 saturations in the 90s on 8 L high flow nasal cannula. No IV fluids. Not requiring BiPAP support. Blood glucose 207. Continue on DuoNeb inhalations, Symbicort, IV Solu-Medrol. Currently on amiodarone at 100 mg daily. Anticoagulated with Eliquis. Objective - Vital Signs Vital signs: Vital Signs Temp 98.1 F 08/28/22 08:27 Pulse 60 08/28/22 11:17 Resp 24 08/28/22 08:27 BP 121/73 08/28/22 08:27 Pulse Ox 96 08/28/22 08:27 FiO2 50 08/26/22 03:10 Intake & Output 08/27/22 08/28/22 08/28/22 18:59 06:59 18:59 Intake Total 120 800 180 Output Total 600 700 Balance -480 100 180 Weight 103.5 kg Intake: Oral 120 800 180 Output: Urine 600 700 Other: Voiding Method Urinal Urinal External Catheter External Catheter External Catheter # Bowel Movements 1 1 - Exam GENERAL EXAM: Alert, 57-year-old male resting comfortably in bed, on 8 L high flow nasal cannula, in no apparent distress. HEAD: Normocephalic. EYES: Normal reaction of pupils, equal size. NOSE: Clear with pink turbinates. THROAT: No erythema or exudates. NECK: No masses, no JVD. CHEST: No chest wall deformity. LUNGS: Equal air entry with diffuse coarse crackles bilaterally. CVS: S1 and S2 normal with no audible murmur, regular rhythm. ABDOMEN: No hepatosplenomegaly, normal bowel sounds, no guarding or rigidity. SPINE: No scoliosis or deformity SKIN: No rashes CENTRAL NERVOUS SYSTEM: No focal deficits, tone is normal in all 4 extremities. EXTREMITIES: There is no peripheral edema. No clubbing, no cyanosis. Peripheral pulses are intact. 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 Confirmed by wedge biopsy on 06/11/2022. The patient was to remain on a high-dose of steroids however he presented back here on just 20 mg of prednisone daily. Currently on Solu-Medrol 60 mg every 6 hours Multiple readmissions to the hospital secondary to above and the last discharge was 07/03/2022 Atrial fibrillation, initially on amiodarone 200 mg twice a day. Now decreased to 100 mg daily per cardiology. Anticoagulated with Eliquis Severe underlying COPD Coronary artery disease Mildly impaired systolic dysfunction with mild congestive heart failure Benign essential hypertension Schizophrenia Bipolar disorder Dyslipidemia Obstructive sleep apnea syndrome History of seizure disorder Plan: The patient was seen and evaluated Labs and medications reviewed Continue Solu-Medrol at 60 mg every 6 hours Continue DuoNeb inhalations, Symbicort Continue Lasix 20 mg by mouth twice a day Follow-up chest x-ray in a.m. We will continue to follow I have personally seen and examined the patient, performed the documentation and the assessment and plan as written. Number of minutes spent on the visit: 10.
[2022-08-28 11:32] LABS: Glucose,Whole Blood 224 mg/dL (70-110)
--- NOTE | 2022-08-28 13:52 | P.PN ---
Subjective Progress Note Date: 08/28/22 History of present illness: Patient is a 57-year-old male patient of Dr. Thomas Ayon with significant past med ica history of COPD, GERD, paroxysmal atrial fibrillation on eliquis, hypertension, hyperlipidemia, seizure disorder, diabetes, hypothyroidism, obstructive sleep apnea, bipolar, former smoker quit 04/30 he was admitted 06/16/22 for respiratory distress. Cardiology was consulted by pulmonary medicine requesting the patient can be weaned off amiodarone due to his chronic respiratory status. Patient has a history of interstitial lung disease with variant of cryptogenic organizing pneumonitis requiring high-dose prednisone. Patient currently denies any chest pain, shortness of breath, no palpitations. No lightheadedness or dizziness. He was transferred from [facility] due to hypoxia and difficulty breathing requiring BiPAP. Patient subsequently been started on DuoNeb treatments, IV Lasix and IV Solu-Medrol as well as antibiotics. EKG sinus rhythm Telemetry sinus rhythm in the 50s and 60s Chest x-ray bilateral multifocal edema and/or infiltrates redemonstrated. WBC 7.3, hemoglobin 7.4, platelet count 145. BUN 21 creatinine 0.66, potassium 4.0. Pro-calcitonin 0.2. Troponin negative 1. Influenza testing negative. Home cardiac medications amiodarone 200 mg twice daily, eliquis 5 mg twice daily, atorvastatin 40 mg daily, Saturday at 10 mg daily, Lasix 40 mg every 48 hours, Imdur 30 mg daily, Lopressor 25 mg 3 times daily, verapamil 120 mg twice daily Echocardiogram 05/2022 revealed normal ventricular size and systolic function. Trace to mild mitral and tricuspid regurgitation. 08/28 Patient is seen today in follow-up on the cardiac stepdown unit. Patient states he has shortness of breath today. Yesterday we decreased amiodarone 200 mg daily and heart rate has been well controlled in the 50s in a sinus rhythm on telemetry. PHYSICAL EXAMINATION: This is a 57-year-old male. HEENT: Head is atraumatic, normocephalic. Pupils are equal, round. Sclerae anicteric. Conjunctivae are clear. Mucous membranes of the mouth are moist. Neck is supple. There is no jugular venous distention. No carotid bruit is heard. CHEST EXAMINATION: Coarse crackles bilaterally. No chest wall tenderness is noted on palpation or with deep breathing. HEART EXAMINATION: Heart regular rate and rhythm. S1, S2 heard. No murmurs, gallops or rub. ABDOMEN: Soft, nontender. Bowel sounds are heard. EXTREMITIES: 2+ peripheral pulses with no evidence of peripheral edema and no calf tenderness noted. NEUROLOGIC EXAMINATION: Patient is awake, alert and oriented x3. IMPRESSION AND PLAN: Paroxysmal atrial fibrillation, currently in sinus rhythm Acute on chronic hypoxic respiratory failure Cicatricial organizing pneumonia Hypertension Hyperlipidemia Interstitial lung disease COPD Diabetes PLAN: Continue patient's home cardiac medications except for amiodarone Decrease amiodarone to 100 mg daily Continue to monitor heart rate closely while adjusting no subcu amiodarone. Further recommendations as patient progresses. Thank you kindly for this consultation. Nurse practitioner note has been reviewed, I agree with the documented findings and plan of care. Patient was seen and examined. Objective - Vital Signs Vital signs: Vital Signs Temp 98.1 F 08/28/22 08:27 Pulse 59 L 08/28/22 11:25 Resp 22 08/28/22 11:25 BP 107/65 08/28/22 11:25 Pulse Ox 94 L 08/28/22 11:25 FiO2 50 08/26/22 03:10 Intake & Output 08/27/22 08/28/22 08/28/22 18:59 06:59 18:59 Intake Total 120 800 180 Output Total 600 700 Balance -480 100 180 Weight 103.5 kg Intake: Oral 120 800 180 Output: Urine 600 700 Other: Voiding Method Urinal Urinal External Catheter External Catheter External Catheter # Bowel Movements 1 1 - Labs CBC & Chem 7: 08/26/22 07:30 08/26/22 07:30 Labs: Abnormal Lab Results - Last 24 Hours (Table) 08/27/22 08/27/22 08/28/22 Range/Units 16:40 20:11 06:03 POC Glucose (mg/dL) 314 H 236 H 207 H (70-110) mg/dL 08/28/22 Range/Units 11:31 POC Glucose (mg/dL) 224 H (70-110) mg/dL
[2022-08-28 16:43] LABS: Glucose,Whole Blood 297 mg/dL (70-110)
--- NOTE | 2022-08-28 20:07 | P.PN ---
Progress Note - Text Progress Note Date: 08/28/22 Chief Complaint: Short of breath This is a 56-year-old patient, follows with Dr. Carson. Chronic stable medical conditions include GERD, hyperlipidemia, hypertension, seizure disorder, hypothyroid, obstructive sleep apnea not able to use CPAP, bipolar. Smoker- until April 2022. Atrial fibrillation admitted from May 03 through May 142022: - bilateral pneumonia, COPD exacerbation. Received Zosyn. Patient now transferred from [facility] ER with increasing shortness of breath. Also found to be hypoxic. Going on for 2 or 3 days. Was put on BiPAP and DuoNeb treatments. Also given some IV Lasix. Also started on ceftriaxone for possible pneumonia. Apparently at home on 6 L oxygen. Denies any fever and chills. Minimal cough. In the ER rather tired. Just about able to answer questions. Decreased appetite Admitted with COPD exacerbation, acute hypoxic respiratory failure, possible pneumonia, exacerbation of organizing pneumonia August 26: Laying in bed. 7 L high flow nasal cannula. Breathing a bit better. IV Solu-Medrol. Eating better. Tired. August 27: Reclining in bed. She may short of breath. 7 L high flow nasal cannula. Patient was seen by currently. Amiodarone decreased to 100 mg a day because of concern for involvement for lung cannot be ruled out. Eating well. August 28: Reclining in. He may short of breath. 8 L high flow nasal cannula. Eating well. High dose Solu Medrol. Active Medications Hydrocodone Bitart/Acetaminophen (Hydrocodone/Apap 7.5-325mg 1 Each Tab) 1 each PO TID PRN PRN Reason: Pain Last Admin: 08/28/22 16:49 Dose: 1 each Albuterol/Ipratropium (Ipratropium-Albuterol 3 Ml Neb) 3 ml INHALATION RT-Q6H PRN PRN Reason: Shortness Of Breath Last Admin: 08/27/22 08:05 Dose: 3 ml Albuterol/Ipratropium (Ipratropium-Albuterol 3 Ml Neb) 3 ml INHALATION RT-Q4H MARYLOU Last Admin: 08/28/22 15:11 Dose: 3 ml Amiodarone HCl (Amiodarone 100 Mg Tab) 100 mg PO DAILY MARYLOU Last Admin: 08/28/22 08:39 Dose: 100 mg Apixaban (Apixaban 5 Mg Tab) 5 mg PO BID [facility]; Protocol Last Admin: 08/28/22 08:37 Dose: 5 mg Atorvastatin Calcium (Atorvastatin 40 Mg Tab) 40 mg PO DAILY [facility] Last Admin: 08/28/22 08:37 Dose: 40 mg Benzocaine/Menthol (Benzocaine/Menthol Lozeng 1 Each Lozenge) 1 each MUCOUS MEM Q4HR PRN PRN Reason: Sore Throat Last Admin: 08/28/22 09:36 Dose: 1 each Budesonide/Formoterol Fumarate (Symbicort 160-4.5 Mcg Inhaler) 1 puff INHALATION RT-BID [facility] Last Admin: 08/28/22 07:50 Dose: 1 puff Clonazepam (Clonazepam 0.5 Mg Tab) 0.5 mg PO TID [facility] Last Admin: 08/28/22 15:05 Dose: 0.5 mg Dextrose/Water (Dextrose 50% Syringe 50 Ml) 25 ml IVP PER PROTOCOL PRN; Protocol PRN Reason: Hypoglycemia Dextrose/Water (Dextrose 50% Syringe 50 Ml) 50 ml IVP PER PROTOCOL PRN; Protocol PRN Reason: Hypoglycemia Donepezil HCl (Donepezil 5 Mg Tab) 5 mg PO [facility] Last Admin: 08/27/22 21:21 Dose: 5 mg Ezetimibe (Ezetimibe 10 Mg Tab) 10 mg PO DAILY [facility] Last Admin: 08/28/22 08:38 Dose: 10 mg Furosemide (Furosemide 20 Mg Tab) 20 mg PO BID@0900,1600 [facility] Last Admin: 08/28/22 15:05 Dose: 20 mg Gabapentin (Gabapentin 400 Mg Cap) 400 mg PO TID [facility] Last Admin: 08/28/22 15:05 Dose: 400 mg Haloperidol (Haloperidol 2 Mg Tab) 2 mg PO DAILY [facility] Last Admin: 08/28/22 08:39 Dose: 2 mg Insulin Aspart (Insulin Aspart (Novolog) 100 Unit/Ml Vial) 0 unit SQ [facility]; Protocol Last Admin: 08/28/22 16:48 Dose: 9 unit Insulin Detemir (Insulin Detemir (Levemir) 100 Unit/Ml Syr) 45 unit SQ [facility] Last Admin: 08/27/22 21:21 Dose: 45 unit Isosorbide Mononitrate (Isosorbide Mononitrate Er 30 Mg Tab.Er.24h) 30 mg PO DAILY [facility] Last Admin: 08/28/22 08:38 Dose: 30 mg Linagliptin (Linagliptin 5 Mg Tablet) 5 mg PO DAILY [facility] Last Admin: 08/28/22 08:38 Dose: 5 mg Loratadine (Loratadine 10 Mg Tab) 10 mg PO DAILY [facility] Last Admin: 08/28/22 08:38 Dose: 10 mg Metformin HCl (Metformin 500 Mg Tab) 500 mg PO BID [facility] Last Admin: 08/27/22 21:22 Dose: 500 mg Methylprednisolone Sodium Succinate (Methylprednisolone Sod Succi 125 Mg/2 Ml Vial) 60 mg IV Q6HR [facility] Last Admin: 08/28/22 16:47 Dose: 60 mg Metoprolol Tartrate (Metoprolol Tartrate 25 Mg Tab) 25 mg PO TID [facility] Last Admin: 08/28/22 15:05 Dose: 25 mg Naloxone HCl (Naloxone 0.4 Mg/Ml 1 Ml Vial) 0.2 mg IV Q2M PRN PRN Reason: Opioid Reversal Pantoprazole Sodium (Pantoprazole 40 Mg Tablet) 40 mg PO AC-BRKFST [facility] Last Admin: 08/28/22 06:32 Dose: 40 mg Sertraline HCl (Sertraline 100 Mg Tab) 200 mg PO DAILY [facility] Last Admin: 08/28/22 08:37 Dose: 200 mg Tamsulosin HCl (Tamsulosin 0.4 Mg Cap.Er.24h) 0.4 mg PO DAILY [facility] Last Admin: 08/28/22 08:37 Dose: 0.4 mg Trazodone HCl (Trazodone Hcl 50 Mg Tab) 150 mg PO HS PRN PRN Reason: Insomnia Last Admin: 08/26/22 00:26 Dose: 150 mg Verapamil HCl (Verapamil Sr 120 Mg Tablet.Er) 120 mg PO BID [facility] Last Admin: 08/28/22 08:39 Dose: 120 mg Past medical history to include: COPD, GERD, hypertension, hyperlipidemia, some cognitive impairment, seizure disorder, obstructive sleep apnea does not use CPAP, hypothyroid, LAP-BAND with reversal, bipolar, atrial fibrillation Social history: Lives with ex-, Dottie. Smoked For 44 years stopped in April 2022 . 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 Physical examination: VITAL SIGNS: 98.1, 60, 24, 121/73, 96% 8 L GENERAL:, BMI 32.1, reclining in bed, short of breath EYES: Pupils equal. Conjunctiva normal. HEENT: External appearance of nose and ears normal, oral cavity grossly normal. NECK: JVD not raised; masses not palpable. HEART: First and second heart sounds are normal; no edema. LUNGS: Respiratory rate increased; decreased breath sounds , not able to speak in full sentences ABDOMEN: Soft, nontender, liver spleen not palpable, no masses palpable. PSYCH: Alert and oriented x3; mood and affect. Anxious. MUSCULOSKELETAL:No Clubbing/cyanosis;muscles-grossly intact INVESTIGATIONS, reviewed in the clinical context: White count 7.3 hemoglobin 7.4 platelets 145 potassium 4 creatinine 0.66 procalcitonin 0.20 Influenza type A, type B: Not detected EKG tracing personally reviewed by me-normal sinus rhythm. Some ST-T wave changes. Chest x-ray film personally reviewed by me-bilateral infiltrates Previous studies: 2-D echocardiogram: April 2022 EF 55-60%. Moderate LVH. Lung biopsy: 06/08/2022: Organizing pneumonia with some fibrotic features/cicatrix Assessment and plan: -Acute COPD exacerbation in a previous smoker: Slow to respond DuoNeb, Symbicort IV Solu-Medrol -Acute exacerbation Cicatracial organizing pneumonia per lung biopsy on 06/08/2022. IV Solu-Medrol -Acute hypoxic respiratory failure from pneumonia: Slow to respond Currently 8 L - paroxysmal atrial fibrillation-sinus rhythm.: Verapamil SR 120 mg twice a day. Eliquis. Lopressor 25 mg 3 times a day - chronic hypoxic respiratory failure from COPD/organizing pneumonia Home on 6 L of oxygen -Hyperlipidemia Lipitor 40 mg a day -Hyperglycemia secondary to steroids.: Uncontrolled Levemir 50 units subcu daily at bedtime. Follow Accu-Cheks -Mild cognitive impairment Aricept -GERD PPI -Bipolar disorder Klonopin 0.5 mg 3 times a day, Haldol -Essential hypertension Verapamil, Lopressor -No code - -Oxygen 8 L. Oral intake good. IV Solu-Medrol . Increase Levemir to 50 units daily at bedtime. Discussed
[2022-08-28] MEDS: metFORMIN 500 MG TAB PO SCH (20:13)
[2022-08-28] MEDS: DONEPEZIL 5 MG TAB PO SCH (20:13)
[2022-08-28 20:33] LABS: Glucose,Whole Blood 300 mg/dL (70-110)
[2022-08-28] MEDS: INSULIN DETEMIR (LEVEMIR) 100 UNIT/ML SYR SQ SCH (20:43)
[2022-08-29] MEDS: IPRATROPIUM-ALBUTEROL 3 ML NEB INHALATION SCH ×6 (01:13→21:28)
[2022-08-29 06:04] LABS: Glucose,Whole Blood 218 mg/dL (70-110)
[2022-08-29] MEDS: methylPREDNISolone SOD SUCCI 125 MG/2 ML VIAL IV SCH ×3 (06:26→16:41)
[2022-08-29] MEDS: PANTOPRAZOLE 40 MG TABLET PO SCH (06:27)
[2022-08-29] MEDS: BENZOCAINE/MENTHOL LOZENG 1 EACH LOZENGE MUCOUS MEM PRN (06:27)
[2022-08-29] MEDS: INSULIN ASPART (NovoLOG) 100 UNIT/ML VIAL SQ SCH ×4 (06:27→20:49)
[2022-08-29] MEDS: FUROSEMIDE 20 MG TAB PO SCH ×2 (08:51→16:40)
[2022-08-29] MEDS: APIXABAN 5 MG TAB PO SCH ×2 (08:52→20:48)
[2022-08-29] MEDS: SERTRALINE 100 MG TAB PO SCH (08:52)
[2022-08-29] MEDS: LINAGLIPTIN 5 MG TABLET PO SCH (08:52)
[2022-08-29] MEDS: clonazePAM 0.5 MG TAB PO SCH ×3 (08:52→20:48)
[2022-08-29] MEDS: EZETIMIBE 10 MG TAB PO SCH (08:52)
[2022-08-29] MEDS: LORATADINE 10 MG TAB PO SCH (08:52)
[2022-08-29] MEDS: METOPROLOL TARTRATE 25 MG TAB PO SCH ×3 (08:52→20:48)
[2022-08-29] MEDS: HYDROcodone/APAP 7.5-325MG 1 EACH TAB PO PRN (08:52)
[2022-08-29] MEDS: VERAPAMIL SR 120 MG TABLET.ER PO SCH ×2 (08:53→20:48)
[2022-08-29] MEDS: metFORMIN 500 MG TAB PO SCH ×2 (08:53→20:48)
[2022-08-29] MEDS: ISOSORBIDE MONONITRATE ER 30 MG TAB.ER.24H PO SCH (08:53)
[2022-08-29] MEDS: GABAPENTIN 400 MG CAP PO SCH ×3 (08:53→20:48)
[2022-08-29] MEDS: TAMSULOSIN 0.4 MG CAP.ER.24H PO SCH (08:53)
[2022-08-29] MEDS: ATORVASTATIN 40 MG TAB PO SCH (08:53)
[2022-08-29] MEDS: AMIODARONE 100 MG TAB PO SCH (08:54)
--- NOTE | 2022-08-29 09:14 | P.PN ---
Subjective Progress Note Date: 08/29/22 History of present illness: Patient is a 57-year-old male patient of Dr. Thomas Ayon with significant past med ica history of COPD, GERD, paroxysmal atrial fibrillation on eliquis, hypertension, hyperlipidemia, seizure disorder, diabetes, hypothyroidism, obstructive sleep apnea, bipolar, former smoker quit 04/30 he was admitted 06/16/22 for respiratory distress. Cardiology was consulted by pulmonary medicine requesting the patient can be weaned off amiodarone due to his chronic respiratory status. Patient has a history of interstitial lung disease with variant of cryptogenic organizing pneumonitis requiring high-dose prednisone. Patient currently denies any chest pain, shortness of breath, no palpitations. No lightheadedness or dizziness. He was transferred from [facility] due to hypoxia and difficulty breathing requiring BiPAP. Patient subsequently been started on DuoNeb treatments, IV Lasix and IV Solu-Medrol as well as antibiotics. EKG sinus rhythm Telemetry sinus rhythm in the 50s and 60s Chest x-ray bilateral multifocal edema and/or infiltrates redemonstrated. WBC 7.3, hemoglobin 7.4, platelet count 145. BUN 21 creatinine 0.66, potassium 4.0. Pro-calcitonin 0.2. Troponin negative 1. Influenza testing negative. Home cardiac medications amiodarone 200 mg twice daily, eliquis 5 mg twice daily, atorvastatin 40 mg daily, Saturday at 10 mg daily, Lasix 40 mg every 48 hours, Imdur 30 mg daily, Lopressor 25 mg 3 times daily, verapamil 120 mg twice daily Echocardiogram 05/2022 revealed normal ventricular size and systolic function. Trace to mild mitral and tricuspid regurgitation. 08/28 Patient is seen today in follow-up on the cardiac stepdown unit. Patient states he has shortness of breath today. Yesterday we decreased amiodarone 200 mg daily and heart rate has been well controlled in the 50s in a sinus rhythm on telemetry. 08/29 Patient is seen today in follow-up. He continues have some shortness of breath. His respiratory status is managed by pulmonary medicine. We have decreased his amiodarone to 100 mg daily and heart rate seems to be maintaining in the 60s. Plan will be to continue this dose after discharge, patient may follow-up with Dr. Ayon with further adjustments and be replaced with another medication as an outpatient. Patient maintained in sinus rhythm. PHYSICAL EXAMINATION: This is a 57-year-old male. Blood pressure 132/76. HEENT: Head is atraumatic, normocephalic. Pupils are equal, round. Sclerae anicteric. Conjunctivae are clear. Mucous membranes of the mouth are moist. Neck is supple. There is no jugular venous distention. No carotid bruit is heard. CHEST EXAMINATION: Coarse crackles bilaterally. No chest wall tenderness is noted on palpation or with deep breathing. HEART EXAMINATION: Heart regular rate and rhythm. S1, S2 heard. No murmurs, gallops or rub. ABDOMEN: Soft, nontender. Bowel sounds are heard. EXTREMITIES: 2+ peripheral pulses with no evidence of peripheral edema and no calf tenderness noted. NEUROLOGIC EXAMINATION: Patient is awake, alert and oriented x3. IMPRESSION AND PLAN: Paroxysmal atrial fibrillation, currently in sinus rhythm Acute on chronic hypoxic respiratory failure Cicatricial organizing pneumonia Hypertension Hyperlipidemia Interstitial lung disease COPD Diabetes PLAN: Continue patient's home cardiac medications and continue decreased dose of amiodarone at 100 mg daily at the time of discharge Further adjustments on amiodarone may be made as an outpatient. Cardiology will sign off and follow on an as-needed basis. Please reconsult for any new concerns. For now, continue amiodarone 100 mg daily and patient to follow-up with Dr. Ayon in the office for further adjustment and replacement by different medication. Nurse practitioner note has been reviewed, I agree with the documented findings and plan of care. Patient was seen and examined. Objective - Vital Signs Vital signs: Vital Signs Temp 98.4 F 08/29/22 04:00 Pulse 62 08/29/22 04:40 Resp 20 08/29/22 04:00 BP 147/84 08/29/22 04:00 Pulse Ox 91 L 08/29/22 04:00 FiO2 50 08/26/22 03:10 Intake & Output 08/28/22 08/29/22 08/29/22 18:59 06:59 18:59 Intake Total 540 Output Total 625 450 Balance -85 -450 Weight 103.5 kg Intake: Oral 540 Output: Urine 625 450 Other: Voiding Method External Catheter External Catheter # Bowel Movements 1 - Labs CBC & Chem 7: 08/26/22 07:30 08/26/22 07:30 Labs: Abnormal Lab Results - Last 24 Hours (Table) 08/28/22 08/28/22 08/28/22 Range/Units 11:31 16:38 20:28 POC Glucose (mg/dL) 224 H 297 H 300 H (70-110) mg/dL 08/29/22 Range/Units 05:52 POC Glucose (mg/dL) 218 H (70-110) mg/dL
[2022-08-29] MEDS: SYMBICORT 160-4.5 MCG INHALER INHALATION SCH ×2 (09:50→21:28)
--- NOTE | 2022-08-29 11:05 | P.PN ---
Subjective Progress Note Date: 08/29/22 Principal diagnosis: Shortness of breath. This is a pleasant 57-year-old male patient was hospitalized again yesterday as a transfer from [facility] for worsening shortness of breath. He is known to have schizophrenia, depression, COPD, hypertension, coronary artery disease, CHF with mild impairment of LV function with an ejection fraction of 45-50%. Chronic atrial fibrillation maintained on amiodarone currently at 200 mg twice a day. Anticoagulated with Eliquis. He is known to have chronic hypoxic respiratory failure on 7 L high flow nasal cannula at [facility] and development of diffuse bilateral pulmonary infiltrates. The patient has had multiple hospitalizations. During his hospital stay, he receives antibiotics and steroids and he improves. 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 He was to be following with us in the office for steroid titration however he has not yet been able to get there. He had been weaned down by his PCP to 20 mg of prednisone daily. His chest x-ray is again showing recurrence of bilateral multifocal edema and/or infiltrates. He is requiring 7 L high flow nasal cannula presently. He was initially on BiPAP / and 50% FiO2. He is seen today in consultation on the selective care unit. He is currently resting in bed. Awake and alert in no acute distress. He's been afebrile. Hemodynamically stable. White count 7.3. Hemoglobin 7.4. Platelets 145. Sod ium 140. Potassium 4.0. Bicarb 39. BUN 21. Creatinine 0.66. Glucose 221. Influenza screen negative. He's been initiated and DuoNeb inhalations, Symbicort, Solu-Medrol at 60 mg IV every 6 hours. The patient is seen today 08/27/2022 in follow-up on the selective care unit. He is currently resting comfortably in bed. Awake and alert in no acute distress. Currently maintaining O2 saturations in the 90s on 8 L high flow nasal cannula. Blood glucose 242. He is continued on DuoNeb inhalations, Symbicort, IV Solu-Medrol. His amiodarone dose was decreased 200 mg per day per cardiology. He is anticoagulated with Eliquis. Remains on oral diuretics. Patient is seen today 08/28/2022 in follow-up on the selective care unit. He is awake and alert in no acute distress. Currently resting quite comfortably in bed. Maintaining O2 saturations in the 90s on 8 L high flow nasal cannula. No IV fluids. Not requiring BiPAP support. Blood glucose 207. Continue on DuoNeb inhalations, Symbicort, IV Solu-Medrol. Currently on amiodarone at 100 mg daily. Anticoagulated with Eliquis. Progress note dated 08/29/2022. The patient is seen today in room 380. He is on a liters of oxygen. He's feeling much better. No IV fluids. He did not use of BiPAP last night. His chest x-ray, compared to the previous x-ray, shows improvement. From the pulmonary perspective, the patient could be considered for possible discharge. Labs today other than a glucose of 218. Objective - Vital Signs Vital signs: Vital Signs Temp 98.1 F 08/29/22 08:08 Pulse 62 08/29/22 10:04 Resp 22 08/29/22 08:08 BP 132/76 08/29/22 08:08 Pulse Ox 97 08/29/22 09:51 FiO2 50 08/26/22 03:10 Intake & Output 08/28/22 08/29/22 08/29/22 18:59 06:59 18:59 Intake Total 540 110 Output Total 625 450 Balance -85 -450 110 Weight 103.5 kg Intake: Oral 540 110 Output: Urine 625 450 Other: Voiding Method External Catheter External Catheter External Catheter # Bowel Movements 1 - Exam No acute distress, oriented 3. No conversational dyspnea, or use of accessory muscles. Currently on 8 L high flow oxygen. HEENT examination is grossly unremarkable. Mucous membranes are moist. No oral lesions. Neck supple. Full range of motion. No adenopathy thyromegaly or neck vein distention. Cardiovascular examination reveals regular rhythm rate. S1-S2 normal. No S3 or S4. No discernible murmur noted. Heart sounds are distant. Heart rate 62 bpm. Lungs reveal scattered bilateral rhonchi and crackles. Breath sounds equal. Saturations are 95-97% on 8 L. Breath sounds are equal bilaterally. Abdomen soft bowel sounds are heard. No masses or tenderness. Extremities are intact. No cyanosis clubbing or edema. Skin is without rash or lesion. Neurologic examination is brief but nonfocal. 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 Confirmed by wedge biopsy on 06/11/2022. The patient was to remain on a high-dose of st eroids however he presented back here on just 20 mg of prednisone daily. Multiple readmissions to the hospital secondary to above and the last discharge was 07/03/2022. Atrial fibrillation, initially on amiodarone 200 mg twice a day. Now decreased to 100 mg daily per cardiology. Anticoagulated with Eliquis. Severe underlying COPD. Coronary artery disease. Mildly impaired systolic dysfunction with mild congestive heart failure. Benign essential hypertension. Schizophrenia. Bipolar disorder. Dyslipidemia. Obstructive sleep apnea syndrome. History of seizure disorder. Plan: Plan dated 08/29/2022. The patient appears to be doing much better. He is expressing the desire to be discharged home. The patient's prednisone could be dosed at 50 mg a day. The patient should follow-up in our office. Labs, x-rays, and medications are reviewed. The patient did not use BiPAP last night. He is not on any IV fluids. His chest x-rays improved. Additional recommendations and suggestions are forthcoming. Prognosis is guarded. Time with Patient: Less than 30
--- NOTE | 2022-08-29 11:09 | P.PN ---
Progress Note - Text Progress Note Date: 08/29/22 Chief Complaint: Short of breath This is a 56-year-old patient, follows with Dr. Carson. Chronic stable medical conditions include GERD, hyperlipidemia, hypertension, seizure disorder, hypothyroid, obstructive sleep apnea not able to use CPAP, bipolar. Smoker- until April 2022. Atrial fibrillation admitted from May 03 through May 142022: - bilateral pneumonia, COPD exacerbation. Received Zosyn. Patient now transferred from [facility] ER with increasing shortness of breath. Also found to be hypoxic. Going on for 2 or 3 days. Was put on BiPAP and DuoNeb treatments. Also given some IV Lasix. Also started on ceftriaxone for possible pneumonia. Apparently at home on 6 L oxygen. Denies any fever and chills. Minimal cough. In the ER rather tired. Just about able to answer questions. Decreased appetite Admitted with COPD exacerbation, acute hypoxic respiratory failure, possible pneumonia, exacerbation of organizing pneumonia August 26: Laying in bed. 7 L high flow nasal cannula. Breathing a bit better. IV Solu-Medrol. Eating better. Tired. August 27: Reclining in bed. She may short of breath. 7 L high flow nasal cannula. Patient was seen by currently. Amiodarone decreased to 100 mg a day because of concern for involvement for lung cannot be ruled out. Eating well. August 28: Reclining in. He may short of breath. 8 L high flow nasal cannula. Eating well. High dose Solu Medrol. August 29: Reclining in bed. She may short of breath. Oral intake good. Eating is high flow nasal cannula. High dose IV Solu Medrol. Did sit up in a chair. Active Medications Hydrocodone Bitart/Acetaminophen (Hydrocodone/Apap 7.5-325mg 1 Each Tab) 1 each PO TID PRN PRN Reason: Pain Last Admin: 08/29/22 08:52 Dose: 1 each Albuterol/Ipratropium (Ipratropium-Albuterol 3 Ml Neb) 3 ml INHALATION RT-Q6H PRN PRN Reason: Shortness Of Breath Last Admin: 08/27/22 08:05 Dose: 3 ml Albuterol/Ipratropium (Ipratropium-Albuterol 3 Ml Neb) 3 ml INHALATION RT-Q4H MARYLOU Last Admin: 08/29/22 09:51 Dose: 3 ml Amiodarone HCl (Amiodarone 100 Mg Tab) 100 mg PO DAILY [facility] Last Admin: 08/29/22 08:54 Dose: 100 mg Apixaban (Apixaban 5 Mg Tab) 5 mg PO BID [facility]; Protocol Last Admin: 08/29/22 08:52 Dose: 5 mg Atorvastatin Calcium (Atorvastatin 40 Mg Tab) 40 mg PO DAILY [facility] Last Admin: 08/29/22 08:53 Dose: 40 mg Benzocaine/Menthol (Benzocaine/Menthol Lozeng 1 Each Lozenge) 1 each MUCOUS MEM Q4HR PRN PRN Reason: Sore Throat Last Admin: 08/29/22 06:27 Dose: 1 each Budesonide/Formoterol Fumarate (Symbicort 160-4.5 Mcg Inhaler) 1 puff INHALATION RT-BID [facility] Last Admin: 08/29/22 09:50 Dose: 1 puff Clonazepam (Clonazepam 0.5 Mg Tab) 0.5 mg PO TID [facility] Last Admin: 08/29/22 08:52 Dose: 0.5 mg Dextrose/Water (Dextrose 50% Syringe 50 Ml) 25 ml IVP PER PROTOCOL PRN; Protocol PRN Reason: Hypoglycemia Dextrose/Water (Dextrose 50% Syringe 50 Ml) 50 ml IVP PER PROTOCOL PRN; Protocol PRN Reason: Hypoglycemia Donepezil HCl (Donepezil 5 Mg Tab) 5 mg PO [facility] Last Admin: 08/28/22 20:13 Dose: 5 mg Ezetimibe (Ezetimibe 10 Mg Tab) 10 mg PO DAILY [facility] Last Admin: 08/29/22 08:52 Dose: 10 mg Furosemide (Furosemide 20 Mg Tab) 20 mg PO BID@0900,1600 [facility] Last Admin: 08/29/22 08:51 Dose: 20 mg Gabapentin (Gabapentin 400 Mg Cap) 400 mg PO TID [facility] Last Admin: 08/29/22 08:53 Dose: 400 mg Haloperidol (Haloperidol 2 Mg Tab) 2 mg PO DAILY [facility] Last Admin: 08/29/22 08:53 Dose: 2 mg Insulin Aspart (Insulin Aspart (Novolog) 100 Unit/Ml Vial) 0 unit SQ [facility]; Protocol Last Admin: 08/29/22 06:27 Dose: 6 unit Insulin Detemir (Insulin Detemir (Levemir) 100 Unit/Ml Syr) 50 unit SQ [facility] Last Admin: 08/28/22 20:43 Dose: 50 unit Isosorbide Mononitrate (Isosorbide Mononitrate Er 30 Mg Tab.Er.24h) 30 mg PO DAILY [facility] Last Admin: 08/29/22 08:53 Dose: 30 mg Linagliptin (Linagliptin 5 Mg Tablet) 5 mg PO DAILY [facility] Last Admin: 08/29/22 08:52 Dose: 5 mg Loratadine (Loratadine 10 Mg Tab) 10 mg PO DAILY [facility] Last Admin: 08/29/22 08:52 Dose: 10 mg Metformin HCl (Metformin 500 Mg Tab) 500 mg PO BID [facility] Last Admin: 08/29/22 08:53 Dose: 500 mg Methylprednisolone Sodium Succinate (Methylprednisolone Sod Succi 125 Mg/2 Ml Vial) 60 mg IV Q6HR [facility] Last Admin: 08/29/22 06:26 Dose: 60 mg Metoprolol Tartrate (Metoprolol Tartrate 25 Mg Tab) 25 mg PO TID [facility] Last Admin: 08/29/22 08:52 Dose: 25 mg Naloxone HCl (Naloxone 0.4 Mg/Ml 1 Ml Vial) 0.2 mg IV Q2M PRN PRN Reason: Opioid Reversal Pantoprazole Sodium (Pantoprazole 40 Mg Tablet) 40 mg PO AC-BRKFST [facility] Last Admin: 08/29/22 06:27 Dose: 40 mg Sertraline HCl (Sertraline 100 Mg Tab) 200 mg PO DAILY [facility] Last Admin: 08/29/22 08:52 Dose: 200 mg Tamsulosin HCl (Tamsulosin 0.4 Mg Cap.Er.24h) 0.4 mg PO DAILY [facility] Last Admin: 08/29/22 08:53 Dose: 0.4 mg Trazodone HCl (Trazodone Hcl 50 Mg Tab) 150 mg PO HS PRN PRN Reason: Insomnia Last Admin: 08/26/22 00:26 Dose: 150 mg Verapamil HCl (Verapamil Sr 120 Mg Tablet.Er) 120 mg PO BID [facility] Last Admin: 08/29/22 08:53 Dose: 120 mg Past medical history to include: COPD, GERD, hypertension, hyperlipidemia, some cognitive impairment, seizure disorder, obstructive sleep apnea does not use CPAP, hypothyroid, LAP-BAND with reversal, bipolar, atrial fibrillation Social history: Lives with ex-, Dottie. Smoked For 44 years stopped in April 2022 . 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 Conjunctiva normal. HEENT: External appearance of nose and ears normal, oral cavity grossly normal. NECK: JVD not raised; masses not palpable. HEART: First and second heart sounds are normal; no edema. LUNGS: Respiratory rate increased; decreased breath sounds , not able to speak in full sentences ABDOMEN: Soft, nontender, liver spleen not palpable, no masses palpable. PSYCH: Alert and oriented x3; mood and affect. Anxious. MUSCULOSKELETAL:No Clubbing/cyanosis;muscles-grossly intact INVESTIGATIONS, reviewed in the clinical context: White count 7.3 hemoglobin 7.4 platelets 145 potassium 4 creatinine 0.66 procalcitonin 0.20 Influenza type A, type B: Not detected EKG tracing personally reviewed by me-normal sinus rhythm. Some ST-T wave changes. Chest x-ray film personally reviewed by me-bilateral infiltrates Previous studies: 2-D echocardiogram: April 2022 EF 55-60%. Moderate LVH. Lung biopsy: 06/08/2022: Organizing pneumonia with some fibrotic features/cicatrix Assessment and plan: -Acute COPD exacerbation in a previous smoker: Slow to respond DuoNeb, Symbicort IV Solu-Medrol 60 mg every 6 -Acute exacerbation Cicatracial organizing pneumonia per lung biopsy on 06/08/2022. IV Solu-Medrol 60 mg every 6 -Acute hypoxic respiratory failure from pneumonia: Slow to respond Currently 8 L - paroxysmal atrial fibrillation-sinus rhythm.: Verapamil SR 120 mg twice a day. Eliquis. Lopressor 25 mg 3 times a day - chronic hypoxic respiratory failure from COPD/organizing pneumonia Home on 6 L of oxygen -Hyperlipidemia Lipitor 40 mg a day -Hyperglycemia secondary to steroids.: Uncontrolled Levemir 50 units subcu daily at bedtime. Follow Accu-Cheks -Mild cognitive impairment Aricept -GERD PPI -Bipolar disorder Klonopin 0.5 mg 3 times a day, Haldol -Essential hypertension Verapamil, Lopressor -No code -Discussed with patient. Follow with pulmonary. -Oxygen 8 L. Oral intake good. IV Solu-Medrol . Increase Levemir to 50 units daily at bedtime. Discussed
[2022-08-29 11:20] LABS: Glucose,Whole Blood 266 mg/dL (70-110)
--- NOTE | 2022-08-29 11:32 | XR ---
EXAMINATION TYPE: XR chest 1V portable DATE OF EXAM: 08/29/2022 Comparison: 08/25/2022 Clinical History: 57-year-old male ILD Findings: Heart moderately enlarged. Low lung volumes. Diffuse interstitial and patchy confluent airspace opaci ties persists throughout. There may be minimal improvement from prior exam. Impression: Moderate cardiomegaly. Low lung volumes. Diffuse interstitial and airspace disease may have some mini mal improvement in the interval.
[2022-08-29 16:19] LABS: Glucose,Whole Blood 233 mg/dL (70-110)
[2022-08-29 20:17] LABS: Glucose,Whole Blood 193 mg/dL (70-110)
[2022-08-29] MEDS: INSULIN DETEMIR (LEVEMIR) 100 UNIT/ML SYR SQ SCH (20:48)
[2022-08-29] MEDS: DONEPEZIL 5 MG TAB PO SCH (20:48)
[2022-08-30] MEDS: IPRATROPIUM-ALBUTEROL 3 ML NEB INHALATION SCH ×4 (00:09→11:59)
[2022-08-30] MEDS: methylPREDNISolone SOD SUCCI 125 MG/2 ML VIAL IV SCH ×3 (00:29→11:45)
[2022-08-30 06:08] LABS: Glucose,Whole Blood 191 mg/dL (70-110)
[2022-08-30] MEDS: PANTOPRAZOLE 40 MG TABLET PO SCH (06:29)
[2022-08-30] MEDS: INSULIN ASPART (NovoLOG) 100 UNIT/ML VIAL SQ SCH ×2 (06:29→11:46)
[2022-08-30] MEDS: SYMBICORT 160-4.5 MCG INHALER INHALATION SCH (08:33)
[2022-08-30] MEDS: EZETIMIBE 10 MG TAB PO SCH (09:02)
[2022-08-30] MEDS: metFORMIN 500 MG TAB PO SCH (09:02)
[2022-08-30] MEDS: TAMSULOSIN 0.4 MG CAP.ER.24H PO SCH (09:02)
[2022-08-30] MEDS: LINAGLIPTIN 5 MG TABLET PO SCH (09:02)
[2022-08-30] MEDS: APIXABAN 5 MG TAB PO SCH (09:02)
[2022-08-30] MEDS: clonazePAM 0.5 MG TAB PO SCH (09:02)
[2022-08-30] MEDS: FUROSEMIDE 20 MG TAB PO SCH (09:02)
[2022-08-30] MEDS: METOPROLOL TARTRATE 25 MG TAB PO SCH (09:02)
[2022-08-30] MEDS: ISOSORBIDE MONONITRATE ER 30 MG TAB.ER.24H PO SCH (09:02)
[2022-08-30] MEDS: ATORVASTATIN 40 MG TAB PO SCH (09:02)
[2022-08-30] MEDS: LORATADINE 10 MG TAB PO SCH (09:03)
[2022-08-30] MEDS: VERAPAMIL SR 120 MG TABLET.ER PO SCH (09:03)
[2022-08-30] MEDS: GABAPENTIN 400 MG CAP PO SCH (09:03)
[2022-08-30] MEDS: SERTRALINE 100 MG TAB PO SCH (09:03)
[2022-08-30] MEDS: AMIODARONE 100 MG TAB PO SCH (09:03)
[2022-08-30 09:38] VITALS: TEMP 98.1
[2022-08-30 11:21] LABS: Glucose,Whole Blood 175 mg/dL (70-110)
--- NOTE | 2022-08-30 11:45 | P.PN ---
Subjective Progress Note Date: 08/30/22 Principal diagnosis: Shortness of breath. This is a pleasant 57-year-old male patient was hospitalized again yesterday as a transfer from [facility] for worsening shortness of breath. He is known to have schizophrenia, depression, COPD, hypertension, coronary artery disease, CHF with mild impairment of LV function with an ejection fraction of 45-50%. Chronic atrial fibrillation maintained on amiodarone currently at 200 mg twice a day. Anticoagulated with Eliquis. He is known to have chronic hypoxic respiratory failure on 7 L high flow nasal cannula at [facility] and development of diffuse bilateral pulmonary infiltrates. The patient has had multiple hospitalizations. During his hospital stay, he receives antibiotics and steroids and he improves. 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 He was to be following with us in the office for steroid titration however he has not yet been able to get there. He had been weaned down by his PCP to 20 mg of prednisone daily. His chest x-ray is again showing recurrence of bilateral multifocal edema and/or infiltrates. He is requiring 7 L high flow nasal cannula presently. He was initially on BiPAP / and 50% FiO2. He is seen today in consultation on the selective care unit. He is currently resting in bed. Awake and alert in no acute distress. He's been afebrile. Hemodynamically stable. White count 7.3. Hemoglobin 7.4. Platelets 145. Sod ium 140. Potassium 4.0. Bicarb 39. BUN 21. Creatinine 0.66. Glucose 221. Influenza screen negative. He's been initiated and DuoNeb inhalations, Symbicort, Solu-Medrol at 60 mg IV every 6 hours. The patient is seen today 08/27/2022 in follow-up on the selective care unit. He is currently resting comfortably in bed. Awake and alert in no acute distress. Currently maintaining O2 saturations in the 90s on 8 L high flow nasal cannula. Blood glucose 242. He is continued on DuoNeb inhalations, Symbicort, IV Solu-Medrol. His amiodarone dose was decreased 200 mg per day per cardiology. He is anticoagulated with Eliquis. Remains on oral diuretics. Patient is seen today 08/28/2022 in follow-up on the selective care unit. He is awake and alert in no acute distress. Currently resting quite comfortably in bed. Maintaining O2 saturations in the 90s on 8 L high flow nasal cannula. No IV fluids. Not requiring BiPAP support. Blood glucose 207. Continue on DuoNeb inhalations, Symbicort, IV Solu-Medrol. Currently on amiodarone at 100 mg daily. Anticoagulated with Eliquis. Progress note dated 08/29/2022. The patient is seen today in room 380. He is on a liters of oxygen. He's feeling much better. No IV fluids. He did not use of BiPAP last night. His chest x-ray, compared to the previous x-ray, shows improvement. From the pulmonary perspective, the patient could be considered for possible discharge. Labs today other than a glucose of 218. Progress note dated 08/30/2022. 57-year-old male seen again in room 380. He currently continues on 7 L high flow nasal cannula. The patient's not receiving any IV fluids. The patient would like to be discharged. In our opinion, he is stable for discharge. He'll be discharged on a higher dose of prednisone. No labs today other than a glucose of 175. Chest x-ray from yesterday, and our opinion, was improved. Objective - Vital Signs Vital signs: Vital Signs Temp 98.1 F 08/30/22 09:00 Pulse 67 08/30/22 09:00 Resp 18 08/30/22 09:00 BP 128/86 08/30/22 09:00 Pulse Ox 94 L 08/30/22 09:00 FiO2 50 08/30/22 04:06 Intake & Output 08/29/22 08/30/22 08/30/22 18:59 06:59 18:59 Intake Total 330 110 Output Total 650 300 Balance -320 -300 110 Intake: Oral 330 110 Output: Urine 650 300 Other: Voiding Method External Catheter External Catheter External Catheter # Bowel Movements 1 - Exam No acute distress, oriented 3. No conversational dyspnea, or use of accessory muscles. Currently on 7 L high flow oxygen. HEENT examination is grossly unremarkable. Mucous membranes are moist. No oral lesions. Neck supple. Full range of motion. No adenopathy thyromegaly or neck vein distention. Cardiovascular examination reveals regular rhythm rate. S1-S2 normal. No S3 or S4. No discernible murmur noted. Heart sounds are distant. Heart rate 65 bpm. Lungs reveal scattered bilateral rhonchi and crackles. Breath sounds equal. Saturations are 94% on 7 L. Breath sounds are equal bilaterally. Abdomen soft bowel sounds are heard. No masses or tenderness. Extremities are intact. No cyanosis clubbing or edema. Skin is without rash or lesion. Neurologic examination is brief but nonfocal. 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 Confirmed by wedge biopsy on 06/11/2022. The patient was to remain on a high-dose of ster oids however he presented back here on just 20 mg of prednisone daily. Multiple readmissions to the hospital secondary to above and the last discharge was 07/03/2022. Atrial fibrillation, initially on amiodarone 200 mg twice a day. Now decreased to 100 mg daily per cardiology. Anticoagulated with Eliquis. Severe underlying COPD. Coronary artery disease. Mildly impaired systolic dysfunction with mild congestive heart failure. Benign essential hypertension. Schizophrenia. Bipolar disorder. Dyslipidemia. Obstructive sleep apnea syndrome. History of seizure disorder. Plan: Plan dated 08/29/2022. The patient appears to be doing much better. He is expressing the desire to be discharged home. The patient's prednisone could be dosed at 50 mg a day. The patient should follow-up in our office. Labs, x-rays, and medications are reviewed. The patient did not use BiPAP last night. He is not on any IV fluids. His chest x-rays improved. Additional recommendations and suggestions are forthcoming. Prognosis is guarded. Plan dated 08/31/1999 The patient down to 7 L high flow oxygen. The patient's chest x-ray from yesterday, is improved. Clinically he is improved. From our perspective, the patient could be considered for discharge. He should be discharged by the primary service on prednisone 50 mg a day. The patient will follow-up in the office. No additional recommendations are made. Prognosis is certainly guarded. Labs, x-rays, and medications are reviewed. Time with Patient: Less than 30
[2022-08-30 12:25] VITALS: BP 123/74; PULSE 62; RESP 17
--- NOTE | 2022-08-30 16:24 | P.DS ---
Providers Date of admission: 08/25/22 16:12 Expected date of discharge: 08/30/22 Attending physician: Johnson Galan Consults: 08/25/22 16:10 Consult Physician Urgent Consulting Provider: Angy Adler Consult Reason/Comments: Pulmonary fibrosis, COPD, hypoxia, pneumonia Do you want consulting provider notified?: Yes 08/26/22 10:11 Consult Physician Routine Consulting Provider: Jose David Ayon Consult Reason/Comments: Can patient be transitioned off Cordarone Do you want consulting provider notified?: Yes Primary care physician: [facility] Course: Chief Complaint: Short of breath This is a 56-year-old patient, follows with Dr. Carson. Chronic stable medical conditions include GERD, hyperlipidemia, hypertension, seizure disorder, hypo thyroid, obstructive sleep apnea not able to use CPAP, bipolar. Smoker-until April 2022. Atrial fibrillation admitted from May 03 through May 142022: - bilateral pneumonia, COPD exacerbation. Received Zosyn. Patient now transferred from [facility] ER with increasing shortness of breath. Also found to be hypoxic. Going on for 2 or 3 days. Was put on BiPAP and DuoNeb treatments. Also given some IV Lasix. Also started on ceftriaxone for possible pneumonia. Apparently at home on 6 L oxygen. Denies any fever and chills. Minimal cough. In the ER rather tired. Just about able to answer questions. Decreased appetite Admitted with COPD exacerbation, acute hypoxic respiratory failure, possible pneumonia, exacerbation of organizing pneumonia August 26: Laying in bed. 7 L high flow nasal cannula. Breathing a bit better. IV Solu-Medrol. Eating better. Tired. August 27: Reclining in bed. She may short of breath. 7 L high flow nasal cannula. Patient was seen by currently. Amiodarone decreased to 100 mg a day because of concern for involvement for lung cannot be ruled out. Eating well. August 28: Reclining in. He may short of breath. 8 L high flow nasal cannula. Eating well. High dose Solu Medrol. August 29: Reclining in bed. She may short of breath. Oral intake good. Eating is high flow nasal cannula. High dose IV Solu Medrol. Did sit up in a chair. August 30: Patient seen by Dr. Mirza from pulmonary. Cleared for discharge. We'll discharged on prednisone [address] Mirza. Eating well. Past medical history to include: COPD, GERD, hypertension, hyperlipidemia, some cognitive impairment, seizure disorder, obstructive sleep apnea does not use CPAP, hypothyroid, LAP-BAND with reversal, bipolar, atrial fibrillation Social history: Lives with ex-, Dottie. Smoked For 44 years stopped in April 2022 . 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 Conjunctiva normal. HEENT: External appearance of nose and ears normal, oral cavity grossly normal. NECK: JVD not raised; masses not palpable. HEART: First and second heart sounds are normal; no edema. LUNGS: Respiratory rate increased; decreased breath sounds , not able to speak in full sentences ABDOMEN: Soft, nontender, liver spleen not palpable, no masses palpable. PSYCH: Alert and oriented x3; mood and affect. Anxious. MUSCULOSKELETAL:No Clubbing/cyanosis;muscles-grossly intact INVESTIGATIONS, reviewed in the clinical context: White count 7.3 hemoglobin 7.4 platelets 145 potassium 4 creatinine 0.66 procalcitonin 0.20 Influenza type A, type B: Not detected EKG tracing personally reviewed by me-normal sinus rhythm. Some ST-T wave changes. Chest x-ray film personally reviewed by me-bilateral infiltrates Previous studies: 2-D echocardiogram: April 2022 EF 55-60%. Moderate LVH. Lung biopsy: 06/08/2022: Organizing pneumonia with some fibrotic features/cicatrix Assessment and plan: -Acute COPD exacerbation in a previous smoker: DuoNeb, Symbicort IV Solu-Medrol 60 mg every 6. Changed to oral prednisone -Acute exacerbation Cicatracial organizing pneumonia per lung biopsy on 06/08/2022. IV Solu-Medrol 60 mg every 6 discharged on prednisone 60 mg daily -Acute hypoxic respiratory failure from pneumonia: Better Currently 7 L - paroxysmal atrial fibrillation-sinus rhythm.: Verapamil SR 120 mg twice a day. Eliquis. Lopressor 25 mg 3 times a day - chronic hypoxic respiratory failure from COPD/organizing pneumonia Home on 6 L of oxygen -Hyperlipidemia Lipitor 40 mg a day -Hyperglycemia secondary to steroids.: Uncontrolled Levemir 20 units subcu daily at bedtime. Follow Accu-Cheks -Mild cognitive impairment Aricept -GERD PPI -Bipolar disorder Klonopin 0.5 mg 3 times a day, Haldol -Essential hypertension Verapamil, Lopressor -No code -Discussed with patient. Follow with pulmonary. Disposition: Home Plan - Discharge Summary New Discharge Prescriptions: New Amiodarone [Cordarone] 100 mg PO DAILY #30 tab Continue Omeprazole 20 mg PO DAILY Cetirizine HCl 10 mg PO DAILY Sertraline HCl [Zoloft] 200 mg PO DAILY Donepezil [Aricept] 5 mg PO HS Atorvastatin Calcium [Lipitor] 40 mg PO DAILY Ezetimibe [Zetia] 10 mg PO DAILY #30 tab metFORMIN HCL [Glucophage] 500 mg PO BID #60 tab Furosemide [Lasix] 40 mg PO Q48H #30 tab Budesonide-Formot 160-4.5 Mcg [Symbicort 160-4.5 Mcg Inhaler] 1 puff INHALATION RT-BID Apixaban [Eliquis] 5 mg PO BID tab Verapamil Sr [Isoptin Sr] 120 mg PO BID tab Gabapentin [Neurontin] 400 mg PO TID #9 cap Tamsulosin HCl [Flomax] 0.4 mg PO DAILY Metoprolol Tartrate [Lopressor] 25 mg PO TID Ipratropium-Albuterol Nebulize [Duoneb 0.5 mg-3 mg/3 ml Soln] 3 ml INHALATION RT-Q6H PRN PRN Reason: Shortness Of Breath traZODone HCL 150 mg PO HS PRN PRN Reason: Insomnia Isosorbide Mononitrate ER [Imdur] 30 mg PO DAILY Linagliptin [Tradjenta] 5 mg PO DAILY tab haloperidoL 2 mg PO DAILY #2 tab HYDROcodone/APAP 7.5-325MG [[place]t 7.5-325] 1 tab PO TID PRN #3 tab PRN Reason: Pain clonazePAM [KlonoPIN] 0.5 mg PO TID Insulin Lispro [humaLOG Kwikpen] See Protocol SQ ACHS predniSONE [Deltasone] 60 mg PO DAILY #100 tab Changed Insulin Glargine,Hum.rec.anlog [Lantus Solostar Pen] 20 units SQ BID #0 Discontinued Loratadine 10 mg PO DAILY Amiodarone [Cordarone] 200 mg PO BID Discharge Medication List Omeprazole 20 mg PO DAILY 01/08/19 [History] Cetirizine HCl 10 mg PO DAILY 09/06/21 [History] Donepezil [Aricept] 5 mg PO HS 09/06/21 [History] Isosorbide Mononitrate ER [Imdur] 30 mg PO DAILY 09/06/21 [History] Sertraline HCl [Zoloft] 200 mg PO DAILY 09/06/21 [History] traZODone HCL 150 mg PO HS PRN 09/06/21 [History] Atorvastatin Calcium [Lipitor] 40 mg PO DAILY 05/03/22 [History] Ezetimibe [Zetia] 10 mg PO DAILY #30 tab 05/14/22 [Rx] Furosemide [Lasix] 40 mg PO Q48H #30 tab 06/11/22 [Rx] metFORMIN HCL [Glucophage] 500 mg PO BID #60 tab 06/11/22 [Rx] Budesonide-Formot 160-4.5 Mcg [Symbicort 160-4.5 Mcg Inhaler] 1 puff INHALATION RT-BID 06/16/22 [History] Apixaban [Eliquis] 5 mg PO BID tab 07/03/22 [Rx] Gabapentin [Neurontin] 400 mg PO TID #9 cap 07/03/22 [Rx] HYDROcodone/APAP 7.5-325MG [[place] 7.5-325] 1 tab PO TID PRN #3 tab 07/03/22 [Rx] Linagliptin [Tradjenta] 5 mg PO DAILY tab 07/03/22 [Rx] Verapamil Sr [Isoptin Sr] 120 mg PO BID tab 07/03/22 [Rx] haloperidoL 2 mg PO DAILY #2 tab 07/03/22 [Rx] Insulin Lispro [humaLOG Kwikpen] See Protocol SQ ACHS 08/25/22 [History] Ipratropium-Albuterol Nebulize [Duoneb 0.5 mg-3 mg/3 ml Soln] 3 ml INHALATION RT-Q6H PRN 08/25/22 [History] Metoprolol Tartrate [Lopressor] 25 mg PO TID 08/25/22 [History] Tamsulosin HCl [Flomax] 0.4 mg PO DAILY 08/25/22 [History] clonazePAM [KlonoPIN] 0.5 mg PO TID 08/25/22 [History] Amiodarone [Cordarone] 100 mg PO DAILY #30 tab 08/30/22 [Rx] Insulin Glargine,Hum.rec.anlog [Lantus Solostar Pen] 20 units SQ BID #0 08/30/22 [Rx] predniSONE [Deltasone] 60 mg PO DAILY #100 tab 08/30/22 [Rx] Follow up Appointment(s)/Referral(s): Loco Carson MD [Primary Care Provider] - 1-2 days Khanh Mirza DO [Doctor of Osteopathic Medicine] - 1 Week (office closed, please call to make follow up appointment ) Jose David Ayon MD [STAFF PHYSICIAN] - 1 Week (office closed please make follow up appointment weaning off amiodarone) Patient Instructions/Handouts: Pneumonitis (GEN) Discharge/Stand Alone Forms: Who Do I Call?, Community Resources, Help In The Home, Personal Auto Travel Counselor Discharge Disposition: HOME SELF-CARE
--- NOTE | 2022-09-02 17:30 | CDI ---
Documentation Clarification Form Date: 09/02/2022 05:07:09 PM From: Mady Mcgowan Phone: Admit Date: 08/25/2022 04:12:00 PM Patient Name: El Renteria Visit Number: [id number] Discharge Date: 08/30/2022 02:04:00 PM ATTENTION: The Clinical Documentation Specialists (CDI) and [facility] Coding Staff appreciate your assistance in clarifying documentation. Please respond to the clarification below the line at the bottom and electronically sign. The CDI & [facility] Coding staff will review the response and follow-up if needed. Please note: Queries are made part of the Legal Health Record. If you have any questions, please contact the author of this message via ITS. Dr. Johnson Galan Your patient has the documented diagnosis of Hx congestive heart failure per ED Note and throughout. Additional information regarding the current acuity of CHF is requested. History/Risk Factors: 57yo M, chronic A. Fib, AECOPD, ACHRF, organizingPNA, home O2, CAD, CHF, HTN, HLD, SHEILA, Schizophrenia, Bipolar disorder, Hx seizure disorder, DMII, Hx smoking, Pulmonary fibrosis Clinical Indicators: VS/Pulse OX: 99 BNP: 1420 Chest X Ray: Persistentcardiomegalyand low lung volumes with increased bilateralopacities. The osseous structures are intact. Treatment: IV Lasix; then 20mg PO/2x daily In your professional opinion, can you please clarify the acuity of CHF if known? [ ] Chronic Systolic Heart Failure (reduced EF) [ + ] Acute on Chronic Systolic Heart Failure (reduced EF) [ ] Other, please specify [ ] Unable to determine (Template Last Revised: May 2020) MTDD
== END 2022-08-30 14:04 | disposition home or self-care (01) | DRG 196 ==
LOC: EC 13:47 → 3SCARD 16:12
PROVIDERS: ADMIT Hospitalist; ATTEND Hospitalist
PROC: 5A09357 Assistance with Respiratory Ventilation, Less than 24 Consecutive Hours, Continuous Positive Airway Pressure (ICD-10-PCS; 2022-08-25)
PROC: 5A0935A Assistance with Respiratory Ventilation, Less than 24 Consecutive Hours, High Flow/Velocity Cannula (ICD-10-PCS; principal; 2022-08-26)
DX: J84.116 Cryptogenic organizing pneumonia (principal); I50.23 Acute on chronic systolic (congestive) heart failure; J96.21 Acute and chronic respiratory failure with hypoxia; J44.1 Chronic obstructive pulmonary disease with (acute) exacerbation; I48.20 Chronic atrial fibrillation, unspecified; J44.0 Chronic obstructive pulmonary disease with (acute) lower respiratory infection; I11.0 Hypertensive heart disease with heart failure; J84.10 Pulmonary fibrosis, unspecified; F20.9 Schizophrenia, unspecified; F31.9 Bipolar disorder, unspecified; E03.9 Hypothyroidism, unspecified; E11.65 Type 2 diabetes mellitus with hyperglycemia; G40.909 Epilepsy, unspecified, not intractable, without status epilepticus; Z99.81 Dependence on supplemental oxygen; Z79.4 Long term (current) use of insulin; Z87.891 Personal history of nicotine dependence; Z66 Do not resuscitate; G31.84 Mild cognitive impairment of uncertain or unknown etiology; E78.5 Hyperlipidemia, unspecified; T38.0X6A Underdosing of glucocorticoids and synthetic analogues, initial encounter; T38.0X5A Adverse effect of glucocorticoids and synthetic analogues, initial encounter; J98.4 Other disorders of lung; G47.33 Obstructive sleep apnea (adult) (pediatric); I25.10 Atherosclerotic heart disease of native coronary artery without angina pectoris; F14.91 Cocaine use, unspecified, in remission; K21.9 Gastro-esophageal reflux disease without esophagitis; Z20.822 Contact with and (suspected) exposure to COVID-19; Z79.899 Other long term (current) drug therapy; Z79.01 Long term (current) use of anticoagulants; Z79.84 Long term (current) use of oral hypoglycemic drugs; Z79.51 Long term (current) use of inhaled steroids; Z86.14 Personal history of Methicillin resistant Staphylococcus aureus infection; Z98.61 Coronary angioplasty status; Z91.138 Patient's unintentional underdosing of medication regimen for other reason; Z91.198 Patient's noncompliance with other medical treatment and regimen for other reason
CPT/HCPCS: 36415; 71045; 80053; 83605; 84145; 84484; 85025; 87502; 93005; 94640; 94660; 94760; 99291

== ENCOUNTER 2022-09-03 11:39 | Inpatient (IN) | payer MEDICARE ==
[2022-09-03] MEDS ORDERED: ALBUTEROL NEBULIZED 2.5 MG/3 ML INHALATION STA (11:41)
[2022-09-03] MEDS ORDERED: methylPREDNISolone SOD SUCCI 125 MG/2 ML VIAL IV STA (11:41)
[2022-09-03] MEDS ORDERED: FUROSEMIDE 10 MG/ML 4 ML VIAL IV STA (11:41)
[2022-09-03] MEDS ORDERED: IPRATROPIUM 0.5 MG/2.5 ML NEBU INHALATION STA (11:41)
--- NOTE | 2022-09-03 11:45 | ED ---
General Adult HPI - General Stated complaint: JESUS Source: patient, RN notes reviewed, old records reviewed - History of Present Illness Initial comments: This a 57-year-old male who presents to the emergency department who states that he has a history of COPD as well as congestive heart failure. Patient states she was recently diagnosed with pneumonia and sent home on antibiotics. Patient states he went home oxygen as well. Patient states she's been having difficulty breathing over the last couple of days and getting progressively worse and he wa s hypoxic in asystole bumped him up to 5 L of O2. When EMS arrived he still was not oxygenating well so they put him on CPAP on the way in. Patient did not receive any steroids or breathing treatments on the way in. Patient states the CPAP does seem to be helping him. Patient also complains of swelling in his legs is much worse. Patient denies any recent fever chills. - Related Data Home Medications Medication Instructions Recorded Confirmed Omeprazole 20 mg PO DAILY 01/08/19 08/25/22 Cetirizine HCl 10 mg PO DAILY 09/06/21 08/25/22 Donepezil [Aricept] 5 mg PO HS 09/06/21 08/25/22 Isosorbide Mononitrate ER [Imdur] 30 mg PO DAILY 09/06/21 08/25/22 Sertraline HCl [Zoloft] 200 mg PO DAILY 09/06/21 08/25/22 traZODone HCL 150 mg PO HS PRN 09/06/21 08/25/22 Atorvastatin Calcium [Lipitor] 40 mg PO DAILY 05/03/22 08/25/22 Budesonide-Formot 160-4.5 Mcg 1 puff INHALATION RT-BID 06/16/22 08/25/22 [Symbicort 160-4.5 Mcg Inhaler] Insulin Lispro [humaLOG Kwikpen] See Protocol SQ ACHS 08/25/22 08/25/22 Ipratropium-Albuterol Nebulize 3 ml INHALATION RT-Q6H PRN 08/25/22 08/25/22 [Duoneb 0.5 mg-3 mg/3 ml Soln] Metoprolol Tartrate [Lopressor] 25 mg PO TID 08/25/22 08/25/22 Tamsulosin HCl [Flomax] 0.4 mg PO DAILY 08/25/22 08/25/22 clonazePAM [KlonoPIN] 0.5 mg PO TID 08/25/22 08/25/22 Previous Rx's Medication Instructions Recorded Ezetimibe [Zetia] 10 mg PO DAILY #30 tab 05/14/22 Furosemide [Lasix] 40 mg PO Q48H #30 tab 06/11/22 metFORMIN HCL [Glucophage] 500 mg PO BID #60 tab 06/11/22 Apixaban [Eliquis] 5 mg PO BID tab 07/03/22 Gabapentin [Neurontin] 400 mg PO TID #9 cap 07/03/22 HYDROcodone/APAP 7.5-325MG [[place] 1 tab PO TID PRN #3 tab 07/03/22 7.5-325] Linagliptin [Tradjenta] 5 mg PO DAILY tab 07/03/22 Verapamil Sr [Isoptin Sr] 120 mg PO BID tab 07/03/22 haloperidoL 2 mg PO DAILY #2 tab 07/03/22 Amiodarone [Cordarone] 100 mg PO DAILY #30 tab 08/30/22 Insulin Glargine,Hum.rec.anlog 20 units SQ BID #0 08/30/22 [Lantus Solostar Pen] predniSONE [Deltasone] 60 mg PO DAILY #100 tab 08/30/22 Allergies Allergy/AdvReac Type Severity Reaction Status Date / Time No Known Allergies Allergy Verified 09/03/22 11:45 Review of Systems ROS Statement: Those systems with pertinent positive or pertinent negative responses have been documented in the HPI. ROS Other: All systems not noted in ROS Statement are negative. Past Medical History Past Medical History: Coronary Artery Disease (CAD), COPD, GERD/Reflux, H yperlipidemia, Hypertension, Memory Impairment, Pneumonia, Respiratory Disorder, Seizure Disorder, Skin Disorder, Sleep Apnea/CPAP/BIPAP Additional Past Medical History / Comment(s): FREQUENT VOMITING. HX ABSCESSES ON LEGS WITH MRSA, HX MRSA ON FACE, NECK, RIGHT THIGH AND LEFT CALF. CELLULTIS. HX SEIZURE X2, LAST IN 2011(BIT PART OF TONGUE OFF). HX BACK FRACTURE(2002), HX L1 COMPRESSION FRACTURE. ENLARGED HEART. CHRONIC BRONCHITIS. History of Any Multi-Drug Resistant Organisms: MRSA Date of last positivie culture/infection: 03/07/16 MDRO Source:: LEFT LEG Past Surgical History: Adenoidectomy, Appendectomy, Cholecystectomy, Heart Catheterization, Hernia Repair, Tonsillectomy Additional Past Surgical History / Comment(s): ABD HERNIA REPAIR X3, VENTRAL HERNIA REPAIR, LAP BAND, LAP REMOVAL OF LAP BAND AND PORT, COLONOSCOPY, EGD, EXCISION OF MRSA FROM FACE, NECK AND LEGS. UP3 surgery Past Anesthesia/Blood Transfusion Reactions: Previous Problems w/ Anesthesia Additional Past Anesthesia/Blood Transfusion Reaction / Comment(s): 1985 DURING TONSILLECTOMY AND ADENOIDECTOMY DEVELOPED FLUID IN LUNGS, WAS PUT ON VENT. Past Psychological History: Bipolar, Depression Smoking Status: Current some day smoker Past Alcohol Use History: None Reported Past Drug Use History: Cocaine, Marijuana - Past Family History Mother Family Medical History: No Reported History Additional Family Medical History / Comment(s): PT STATED MOM IS HEALTHY Father Family Medical History: Cancer Additional Family Medical History / Comment(s): LYMPHOMA. General Exam - General Exam Comments Initial Comments: GENERAL: Patient is well-developed and well-nourished. Patient is nontoxic and well- hydrated and is in moderate distress. ENT: Neck is soft and supple. No significant lymphadenopathy is noted. Oropharynx is clear. Moist mucous membranes. Neck has full range of motion without eliciting any pain. EYES: The sclera were anicteric and conjunctiva were pink and moist. Extraocular movements were intact and pupils were equal round and reactive to light. Eyelids were unremarkable. PULMONARY: Diminished air exchange and X Juan David wheezing was crackles in the bases CARDIOVASCULAR: There is a regular rate and rhythm without any murmurs gallops or rubs. ABDOMEN: Soft and nontender with normal bowel sounds. SKIN: Skin is clear with no lesions or rashes and otherwise unremarkable. NEUROLOGIC: Patient is alert and oriented x3. Cranial nerves II through XII are grossly intact. Motor and sensory are also intact. Normal speech, volume and content. Symmetrical smile. MUSCULOSKELETAL: Normal extremities with adequate strength and full range of motion. 2+ bilaterally LYMPHATICS: No significant lymphadenopathy is noted PSYCHIATRIC: Normal psychiatric evaluation. Course Vital Signs 09/03/22 09/03/22 09/03/22 11:40 11:41 11:46 Temperature 97.7 F Pulse Rate 75 Respiratory 24 Rate Blood Pressure 113/66 O2 Sat by Pulse 83 L Oximetry Fraction of 60 60 Inspired Oxygen (FIO2) 09/03/22 09/03/22 09/03/22 11:55 12:00 12:07 Temperature Pulse Rate 89 74 Respiratory 18 26 H 24 Rate Blood Pressure 113/66 O2 Sat by Pulse 96 Oximetry Fraction of Inspired Oxygen (FIO2) 09/03/22 09/03/22 12:17 12:29 Temperature Pulse Rate 84 73 Respiratory 28 H 23 Rate Blood Pressure 100/74 O2 Sat by Pulse 95 Oximetry Fraction of Inspired Oxygen (FIO2) Medical Decision Making - Medical Decision Making EKG shows a sinus rhythm with frequent PACs at 82 bpm MT interval 144 QRS is 111 QT interval 334 QTC is 373. Patient's EKG shows no ST segment elevation or depression. Was pt. sent in by a medical professional or institution (, PA, RESERVATIONIST, urgent care, hospital, or fci...) When possible be specific @ -[No] Did you speak to anyone other than the patient for history (EMS, parent, family, police, friend...)? What history was obtained from this source @ -[No] Did you review nursing and triage notes (agree or disagree)? Why? @ -[I reviewed and agree with nursing and triage notes] Were old charts reviewed (outside hosp., previous admission, EMS record, old EKG, old radiological studies, urgent care reports/EKG's, fci records)? Report findings @ -I reviewed prior charts prior lab work from prior x-rays on this patient Differential Diagnosis (chest pain, altered mental status, abdominal pain women, abdominal pain men, vaginal bleeding, weakness, fever, dyspnea, syncope, headache, dizziness, GI bleed, back pain, seizure, CVA, palpatations, mental health, musculoskeletal)? @ -Differential Dyspnea: Coronary syndrome, arrhythmia, tamponade, asthma, COPD, pulmonary embolism, pneumonia, pneumothorax, pulmonary effusion, anaphylaxis, diabetic ketoacidosis, flailed chest, pulmonary contusion, diaphragmatic rupture, anemia, neuromuscular, this is not meant to be an all-inclusive list. EKG interpreted by me (3pts min.). @ -[As above] X-rays interpreted by me (1pt min.). @ -Chest x-ray showed infiltrates bilaterally consistent with fibrosis but cannot rule out pulmonary edema or infiltrate CT interpreted by me (1pt min.). @ -[None done] U/S interpreted by me (1pt. min.). @ -[None done] What testing was considered but not performed or refused? (CT, X-rays, U/S, labs)? Why? @ -[None] What meds were considered but not given or refused? Why? @ -[None] Did you discuss the management of the patient with other professionals (professionals i.e. , PA, RESERVATIONIST, lab, RT, psych nurse, psych social worker, traffic safety administrator, teacher, air crew officer, case work aide)? Give summary @ -[facility] Was smoking cessation discussed for >3mins.? @ -[No] Was critical care preformed (if so, how long)? @ -35 minutes Were there social determinants of health that impacted care today? How? (Homelessness, low income, unemployed, alcoholism, drug addiction, transportation, low edu. Level, literacy, decrease access to med. care, snf, rehab)? @ -[No] Was there de-escalation of care discussed even if they declined (Discuss DNR or withdrawal of care, Hospice)? DNR status @ -[No] What co-morbidities impacted this encounter? (DM, HTN, Smoking, COPD, CAD, Cancer, CVA, ARF, Chemo, Hep., AIDS, mental health diagnosis, sleep apnea, morbid obesity)? @ -[None] Was patient admitted / discharged? Hospital course, mention meds given and route, prescriptions, significant lab abnormalities, going to OR and other pertinent info. @ -Patient is on BiPAP and he did receive multiple breathing treatments steroids and I did give the patient antibiotics since infiltrate could not be ruled out. [facility] agreed with the patient admitted the patient wrote orders I consulted pulmonary Undiagnosed new problem with uncertain prognosis? @ -[No] Drug Therapy requiring intensive monitoring for toxicity (Heparin, Nitro, Insulin, Cardizem)? @ -[No] Were any procedures done? @ -[No] Diagnosis/symptom? @ -COPD exacerbation Acute, or Chronic, or Acute on Chronic? @ -Acute Uncomplicated (without systemic symptoms) or Complicated (systemic symptoms)? @ -Complicated Side effects of treatment? @ -[No] Exacerbation, Progression, or Severe Exacerbation? @ -Severe Poses a threat to life or bodily function? How? (Chest pain, [place], [place], pneumonia, PE, COPD, DKA, ARF, appy, cholecystitis, CVA, Diverticulitis, Homicidal, Suicidal, threat to staff... and all critical care pts) @ -Yes this completely to hypoxia and end organ dysfunction Diagnosis/symptom? @ -Pulmonary edema Acute, or Chronic, or Acute on Chronic? @ -Acute Uncomplicated (without systemic symptoms) or Complicated (systemic symptoms)? @ -Complicated Side effects of treatment? @ -[none] Exacerbation, Progression, or Severe Exacerbation] @ -Exacerbation Poses a threat to life or bodily function? @ -Yes is completely to hypoxia and end organ dysfunction - Lab Data Result diagrams: 09/03/22 11:56 09/03/22 11:56 Lab Results 09/03/22 09/03/22 09/03/22 Range/Units 11:56 11:56 11:56 WBC 12.3 H (3.8-10.6) k/uL RBC 3.23 L (4.30-5.90) m/uL Hgb 8.8 L (13.0-17.5) gm/dL Hct 29.0 L (39.0-53.0) % MCV 89.8 (80.0-100.0) fL MCH 27.2 (25.0-35.0) pg MCHC 30.3 L (31.0-37.0) g/dL RDW 17.8 H (11.5-15.5) % Plt Count 193 (150-450) k/uL MPV 8.0 Neutrophils % 88 % Lymphocytes % 4 % Monocytes % 7 % Eosinophils % 1 % Basophils % 0 % Neutrophils # 10.8 H (1.3-7.7) k/uL Lymphocytes # 0.5 L (1.0-4.8) k/uL Monocytes # 0.8 (0-1.0) k/uL Eosinophils # 0.1 (0-0.7) k/uL Basophils # 0.0 (0-0.2) k/uL Hypochromasia Marked Poikilocytosis Moderate Anisocytosis Slight PT 10.7 (9.0-12.0) sec INR 1.0 (<1.2) APTT 21.4 L (22.0-30.0) sec Sample Site ABG pH (7.35-7.45) ABG pCO2 (35-45) mmHg ABG pO2 (83-108) mmHg ABG HCO3 (21-25) mmol/L ABG Total CO2 (19-24) mmol/L ABG O2 Saturation (94-97) % ABG Base Excess mmol/L Jeffy Test FiO2 % Sodium 140 (137-145) mmol/L Potassium 3.3 L (3.5-5.1) mmol/L Chloride 99 (98-107) mmol/L Carbon Dioxide 36 H (22-30) mmol/L Anion Gap 5 mmol/L BUN 22 H (9-20) mg/dL Creatinine 0.71 (0.66-1.25) mg/dL Est GFR (CKD-EPI)AfAm >90 (>60 ml/min/1.73 sqM) Est GFR (CKD-EPI)NonAf >90 (>60 ml/min/1.73 sqM) Glucose 122 H (74-99) mg/dL Plasma Lactic Acid Josiah (0.7-2.0) mmol/L Calcium 7.6 L (8.4-10.2) mg/dL Magnesium 1.8 (1.6-2.3) mg/dL Total Bilirubin 0.6 (0.2-1.3) mg/dL AST 30 (17-59) U/L ALT 43 (4-49) U/L Alkaline Phosphatase 127 H (38-126) U/L Troponin I (0.000-0.034) ng/mL NT-Pro-B Natriuret Pep pg/mL Total Protein 5.1 L (6.3-8.2) g/dL Albumin 2.8 L (3.5-5.0) g/dL 09/03/22 09/03/22 09/03/22 Range/Units 11:56 11:56 11:56 WBC (3.8-10.6) k/uL RBC (4.30-5.90) m/uL Hgb (13.0-17.5) gm/dL Hct (39.0-53.0) % MCV (80.0-100.0) fL MCH (25.0-35.0) pg MCHC (31.0-37.0) g/dL RDW (11.5-15.5) % Plt Count (150-450) k/uL MPV Neutrophils % % Lymphocytes % % Monocytes % % Eosinophils % % Basophils % % Neutrophils # (1.3-7.7) k/uL Lymphocytes # (1.0-4.8) k/uL Monocytes # (0-1.0) k/uL Eosinophils # (0-0.7) k/uL Basophils # (0-0.2) k/uL Hypochromasia Poikilocytosis Anisocytosis PT (9.0-12.0) sec INR (<1.2) APTT (22.0-30.0) sec Sample Site ABG pH (7.35-7.45) ABG pCO2 (35-45) mmHg ABG pO2 (83-108) mmHg ABG HCO3 (21-25) mmol/L ABG Total CO2 (19-24) mmol/L ABG O2 Saturation (94-97) % ABG Base Excess mmol/L Jeffy Test FiO2 % Sodium (137-145) mmol/L Potassium (3.5-5.1) mmol/L Chloride (98-107) mmol/L Carbon Dioxide (22-30) mmol/L Anion Gap mmol/L BUN (9-20) mg/dL Creatinine (0.66-1.25) mg/dL Est GFR (CKD-EPI)AfAm (>60 ml/min/1.73 sqM) Est GFR (CKD-EPI)NonAf (>60 ml/min/1.73 sqM) Glucose (74-99) mg/dL Plasma Lactic Acid Josiah 1.5 (0.7-2.0) mmol/L Calcium (8.4-10.2) mg/dL Magnesium (1.6-2.3) mg/dL Total Bilirubin (0.2-1.3) mg/dL AST (17-59) U/L ALT (4-49) U/L Alkaline Phosphatase (38-126) U/L Troponin I 0.012 (0.000-0.034) ng/mL NT-Pro-B Natriuret Pep 1460 pg/mL Total Protein (6.3-8.2) g/dL Albumin (3.5-5.0) g/dL 09/03/22 Range/Units 12:00 WBC (3.8-10.6) k/uL RBC (4.30-5.90) m/uL Hgb (13.0-17.5) gm/dL Hct (39.0-53.0) % MCV (80.0-100.0) fL MCH (25.0-35.0) pg MCHC (31.0-37.0) g/dL RDW (11.5-15.5) % Plt Count (150-450) k/uL MPV Neutrophils % % Lymphocytes % % Monocytes % % Eosinophils % % Basophils % % Neutrophils # (1.3-7.7) k/uL Lymphocytes # (1.0-4.8) k/uL Monocytes # (0-1.0) k/uL Eosinophils # (0-0.7) k/uL Basophils # (0-0.2) k/uL Hypochromasia Poikilocytosis Anisocytosis PT (9.0-12.0) sec INR (<1.2) APTT (22.0-30.0) sec Sample Site r rad ABG pH 7.47 H (7.35-7.45) ABG pCO2 52 H (35-45) mmHg ABG pO2 80 L (83-108) mmHg ABG HCO3 38 H (21-25) mmol/L ABG Total CO2 39 H (19-24) mmol/L ABG O2 Saturation 97.1 H (94-97) % ABG Base Excess 14.0 mmol/L Jeffy Test Yes FiO2 60 % Sodium (137-145) mmol/L Potassium (3.5-5.1) mmol/L Chloride (98-107) mmol/L Carbon Dioxide (22-30) mmol/L Anion Gap mmol/L BUN (9-20) mg/dL Creatinine (0.66-1.25) mg/dL Est GFR (CKD-EPI)AfAm (>60 ml/min/1.73 sqM) Est GFR (CKD-EPI)NonAf (>60 ml/min/1.73 sqM) Glucose (74-99) mg/dL Plasma Lactic Acid Josiah (0.7-2.0) mmol/L Calcium (8.4-10.2) mg/dL Magnesium (1.6-2.3) mg/dL Total Bilirubin (0.2-1.3) mg/dL AST (17-59) U/L ALT (4-49) U/L Alkaline Phosphatase (38-126) U/L Troponin I (0.000-0.034) ng/mL NT-Pro-B Natriuret Pep pg/mL Total Protein (6.3-8.2) g/dL Albumin (3.5-5.0) g/dL Disposition Clinical Impression: Acute exacerbation of chronic obstructive pulmonary disease, Pulmonary edema Disposition: ADMITTED IP TO THIS HOSP Referrals: None,Stated [REFERRING] - 1-2 days Time of Disposition: 15:05
[2022-09-03 12:06] LABS: ABG HCO3 38 mmol/L (21-25); ABG Oxygen Saturation 97.1 % (94-97); ABG PCO2 52 mmHg (35-45); ABG PH 7.47 (7.35-7.45); ABG PO2 80 mmHg (83-108); ABG TCO2 39 mmol/L (19-24); Allen Test Performed? Yes
[2022-09-03 12:18] LABS: Anisocytosis Slight; Basophils % (A) 0 %; Eosinophils # (A) 0.1 k/uL (0-0.7); Eosinophils % (A) 1 %; HGB 8.8 gm/dL (13.0-17.5); Hypochromasia Marked; Lymphocytes # (A) 0.5 k/uL (1.0-4.8); Lymphocytes % (A) 4 %; MCH 27.2 pg (25.0-35.0); MCHC 30.3 g/dL (31.0-37.0); MCV 89.8 fL (80.0-100.0); Monocytes # (A) 0.8 k/uL (0-1.0); Monocytes % (A) 7 %; Neutrophils # (A) 10.8 k/uL (1.3-7.7); Neutrophils % (A) 88 %; Platelet Count 193 k/uL (150-450); Poikilocytosis Moderate; RBC 3.23 m/uL (4.30-5.90); RDW 17.8 % (11.5-15.5); WBC 12.3 k/uL (3.8-10.6)
[2022-09-03 12:28] LABS: ALT 43 U/L (4-49); AST 30 U/L (17-59); African American GFR (CKD) >90 (>60 ml/min/1.73 sqM); Albumin 2.8 g/dL (3.5-5.0); Alkaline Phosphatase 127 U/L (38-126); Blood Urea Nitrogen 22 mg/dL (9-20); Calcium 7.6 mg/dL (8.4-10.2); Chloride 99 mmol/L (98-107); Glucose 122 mg/dL (74-99); Magnesium 1.8 mg/dL (1.6-2.3); Non-African American GFR(CKD) >90 (>60 ml/min/1.73 sqM); Potassium 3.3 mmol/L (3.5-5.1); Sodium 140 mmol/L (137-145); Total Bilirubin 0.6 mg/dL (0.2-1.3); Total Protein 5.1 g/dL (6.3-8.2)
--- NOTE | 2022-09-03 12:30 | XR ---
EXAMINATION TYPE: XR chest 1V portable DATE OF EXAM: 09/03/2022 COMPARISON: Chest x-ray 5 days ago and older studies HISTORY: Difficulty in breathing. TECHNIQUE: Single AP portable frontal upright view of the chest is obtained. FINDINGS: Low lung volumes with increased opacities bilaterally redemonstrated. Cardiomegaly redemon strated. The osseous structures are intact. IMPRESSION: Persisting cardiomegaly and low lung volumes with bilateral increased opacities bilateral ly favoring fibrosis. Areas of acute infiltrate and/or edema difficult to exclude on background chron ic changes. No significant change from most recent x-ray.
[2022-09-03 12:34] LABS: Anion Gap 5 mmol/L
[2022-09-03 12:38] LABS: Carbon Dioxide 36 mmol/L (22-30)
[2022-09-03 12:40] LABS: Prothrombin Time 10.7 sec (9.0-12.0)
[2022-09-03 12:43] LABS: Partial Thromboplastin Time 21.4 sec (22.0-30.0)
[2022-09-03] MEDS ORDERED: NALOXONE 0.4 MG/ML 1 ML VIAL IVP PRN (15:07)
[2022-09-03] MEDS ORDERED: IPRATROPIUM-ALBUTEROL 3 ML NEB INHALATION PRN (15:07)
[2022-09-03] MEDS ORDERED: PIPERACILLIN-TAZOBACTAM 3.375 GM in SODIUM CHLORIDE 0.9% 100 ML IVPB STA (15:13)
[2022-09-03] MEDS ORDERED: AZITHROMYCIN 500 MG in SODIUM CHLORIDE 0.9% 250 ML IVPB STA (15:14)
[2022-09-03] MEDS: IPRATROPIUM-ALBUTEROL 3 ML NEB INHALATION SCH ×2 (15:35→22:44)
[2022-09-03] MEDS ORDERED: POTASSIUM CHLORIDE 20 MEQ in WATER FOR INJECTION 1 100ML.BAG IVPB STA (16:21)
[2022-09-03] MEDS ORDERED: MAGNESIUM SULFATE-D5W PMX 1 GM in DEXTROSE/WATER 1 100ML.BAG IVPB ONE (16:22)
[2022-09-03] MEDS ORDERED: traZODone HCL 50 MG TAB PO PRN (16:23)
[2022-09-03] MEDS ORDERED: DEXTROSE 50% SYRINGE 50 ML IVP PRN ×2 (16:25)
[2022-09-03] MEDS: INSULIN ASPART (NovoLOG) 100 UNIT/ML VIAL SQ SCH ×2 (18:37→21:52)
[2022-09-03] MEDS: methylPREDNISolone SOD SUCCI 125 MG/2 ML VIAL IV SCH ×2 (18:51→23:58)
[2022-09-03] MEDS ORDERED: SYMBICORT 160-4.5 MCG INHALER INHALATION SCH (20:00)
[2022-09-03 21:28] LABS: Glucose,Whole Blood 235 mg/dL (70-110)
[2022-09-03] MEDS: GABAPENTIN 400 MG CAP PO SCH (21:52)
[2022-09-03] MEDS: clonazePAM 0.5 MG TAB PO SCH (21:52)
[2022-09-03] MEDS: METOPROLOL TARTRATE 25 MG TAB PO SCH (21:52)
[2022-09-03] MEDS: APIXABAN 5 MG TAB PO SCH (21:52)
[2022-09-03] MEDS: VERAPAMIL SR 120 MG TABLET.ER PO SCH (21:52)
[2022-09-03] MEDS: POTASSIUM CHLORIDE ER 20 MEQ TAB.ER PO SCH (21:52)
[2022-09-03] MEDS: FUROSEMIDE 10 MG/ML 4 ML VIAL IV SCH (21:53)
[2022-09-03 23:56] LABS: Glucose,Whole Blood 214 mg/dL (70-110)
[2022-09-03] MEDS: PIPERACILLIN-TAZOBACTAM 3.375 GM in SODIUM CHLORIDE 0.9% 100 ML IVPB SCH (23:59)
[2022-09-03] MEDS: INSULIN DETEMIR (LEVEMIR) 100 UNIT/ML SYR SQ SCH (23:59)
--- NOTE | 2022-09-04 02:38 | P.HPIM ---
History of Present Illness H&P Date: 09/03/22 Chief Complaint: Difficulty in breathing Patient is a 57-year-old male with a known history of COPD, hypertension, hyperlipidemia, memory impairment, obstructive sleep apnea, history of lung biopsy in June 2022 showing diffuse organizing interstitial pneumonitis, chronic inflammation, fibroblastic foci of consolidation presents to ER with worsening shortness of breath. Patient also history of bipolar disorder and depression and currently similar smoker and history of cocaine and marijuana use. Patient was recently discharged from the hospital on 08/30/2022. Patient was sent home on 7 L oxygen via nasal cannula. Patient has been getting worsening shortness of breath for the past couple of weeks and increasing requirement of oxygen at home. EMS was called and patient was placed on CPAP on the way. Patient was also having increased leg swelling. Complaints of cough without any sputum production. No fever no chills. No nausea vomiting abdominal pain or diarrhea. Chest x-ray showed persistent cardiomegaly and low lung volumes with bilateral increased opacities bilaterally favoring fibrosis. Areas of acute infiltrate/edema difficult to exclude background chronic changes. Laboratory data showed WBC 12.3 hemoglobin 8.8 and platelets 193 Blood gas pH 7.47 PCO2 52 and PO2 80 Sodium 140 potassium 3.3 chloride 99 bicarb is 36 BUN 2020 creatinine 0.71 magne sium 1.8 proBNP 1460 troponin x1 negative. Review of Systems ROS unobtainable: due to mental status Past Medical History Past Medical History: Coronary Artery Disease (CAD), COPD, GERD/Reflux, Hyperlipidemia, Hypertension, Memory Impairment, Pneumonia, Respiratory Disorder, Seizure Disorder, Skin Disorder, Sleep Apnea/CPAP/BIPAP Additional Past Medical History / Comment(s): FREQUENT VOMITING. HX ABSCESSES ON LEGS WITH MRSA, HX MRSA ON FACE, NECK, RIGHT THIGH AND LEFT CALF. CELLULTIS. HX SEIZURE X2, LAST IN 2011(BIT PART OF TONGUE OFF). HX BACK FRACTURE(2002), HX L1 COMPRESSION FRACTURE. ENLARGED HEART. CHRONIC BRONCHITIS. History of Any Multi-Drug Resistant Organisms: MRSA Date of last positivie culture/infection: 03/07/16 MDRO Source:: LEFT LEG Past Surgical History: Adenoidectomy, Appendectomy, Cholecystectomy, Heart Catheterization, Hernia Repair, Tonsillectomy Additional Past Surgical History / Comment(s): ABD HERNIA REPAIR X3, VENTRAL HERNIA REPAIR, LAP BAND, LAP REMOVAL OF LAP BAND AND PORT, COLONOSCOPY, EGD, EXCISION OF MRSA FROM FACE, NECK AND LEGS. UP3 surgery Past Anesthesia/Blood Transfusion Reactions: Previous Problems w/ Anesthesia Additional Past Anesthesia/Blood Transfusion Reaction / Comment(s): 1985 DURING TONSILLECTOMY AND ADENOIDECTOMY DEVELOPED FLUID IN LUNGS, WAS PUT ON VENT. Past Psychological History: Bipolar, Depression Smoking Status: Current some day smoker Past Alcohol Use History: None Reported Past Drug Use History: Cocaine, Marijuana - Past Family History Mother Family Medical History: No Reported History Additional Family Medical History / Comment(s): PT STATED MOM IS HEALTHY Father Family Medical History: Cancer Additional Family Medical History / Comment(s): LYMPHOMA. Medications and Allergies Home Medications Medication Instructions Recorded Confirmed Type Omeprazole 20 mg PO DAILY 01/08/19 09/03/22 History Cetirizine HCl 10 mg PO DAILY 09/06/21 09/03/22 History Donepezil [Aricept] 5 mg PO HS 09/06/21 09/03/22 History Isosorbide Mononitrate ER [Imdur] 30 mg PO DAILY 09/06/21 09/03/22 History Sertraline HCl [Zoloft] 200 mg PO DAILY 09/06/21 09/03/22 History traZODone HCL 150 mg PO HS PRN 09/06/21 09/03/22 History Atorvastatin Calcium [Lipitor] 40 mg PO DAILY 05/03/22 09/03/22 History Ezetimibe [Zetia] 10 mg PO DAILY #30 tab 05/14/22 09/03/22 Rx Furosemide [Lasix] 40 mg PO Q48H #30 tab 06/11/22 09/03/22 Rx metFORMIN HCL [Glucophage] 500 mg PO BID #60 tab 06/11/22 09/03/22 Rx Budesonide-Formot 160-4.5 Mcg 1 puff INHALATION RT-BID 06/16/22 09/03/22 History [Symbicort 160-4.5 Mcg Inhaler] Apixaban [Eliquis] 5 mg PO BID tab 07/03/22 09/03/22 Rx Gabapentin [Neurontin] 400 mg PO TID #9 cap 07/03/22 09/03/22 Rx HYDROcodone/APAP 7.5-325MG [[place] 1 tab PO TID PRN #3 tab 07/03/22 09/03/22 Rx 7.5-325] Linagliptin [Tradjenta] 5 mg PO DAILY tab 07/03/22 09/03/22 Rx Verapamil Sr [Isoptin Sr] 120 mg PO BID tab 07/03/22 09/03/22 Rx haloperidoL 2 mg PO DAILY #2 tab 07/03/22 09/03/22 Rx Insulin Lispro [humaLOG Kwikpen] See Protocol SQ ACHS 08/25/22 09/03/22 History Ipratropium-Albuterol Nebulize 3 ml INHALATION RT-Q6H PRN 08/25/22 09/03/22 History [Duoneb 0.5 mg-3 mg/3 ml Soln] Metoprolol Tartrate [Lopressor] 25 mg PO TID 08/25/22 09/03/22 History Tamsulosin HCl [Flomax] 0.4 mg PO DAILY 08/25/22 09/03/22 History clonazePAM [KlonoPIN] 0.5 mg PO TID 08/25/22 09/03/22 History Insulin Glargine,Hum.rec.anlog 20 units SQ BID #0 08/30/22 09/03/22 Rx [Lantus Solostar Pen] predniSONE [Deltasone] 60 mg PO DAILY #100 tab 08/30/22 09/03/22 Rx Amiodarone [Cordarone] 100 mg PO DAILY 09/03/22 09/03/22 History Allergies Allergy/AdvReac Type Severity Reaction Status Date / Time No Known Allergies Allergy Verified 09/03/22 15:49 Physical Exam Vitals: Vital Signs Temp Pulse Resp BP Pulse Ox FiO2 09/03/22 15:45 73 22 09/03/22 15:43 70 23 92/60 91 L 09/03/22 15:35 68 28 H 60 09/03/22 13:30 80 24 96 09/03/22 12:29 73 23 100/74 95 09/03/22 12:17 84 28 H 09/03/22 12:07 24 09/03/22 12:00 74 26 H 09/03/22 11:55 89 18 113/66 96 09/03/22 11:46 60 09/03/22 11:41 60 09/03/22 11:40 97.7 F 75 24 113/66 83 L Intake and Output 09/03/22 09/03/22 09/03/22 06:59 14:59 22:59 Output Total 625 1500 Balance -625 -1500 Output: Urine 1500 Other 625 Other: Weight 101.605 kg PHYSICAL EXAMINATION: Patient is lying in the bed. Awake and alert. Currently on BiPAP. HEENT: Normocephalic. Neck is supple. Pupils reactive. Nostrils clear. Oral cavi ty is moist. Neck reveals no JVD, carotid bruits, or thyromegaly. CHEST EXAMINATION: Trachea is central. Symmetrical expansion. Bilateral diminished sounds and scattered crackles CARDIAC: Normal S1, S2 with no gallops. No murmurs ABDOMEN: Soft. Bowel sounds present. Nontender. No organomegaly. No abdominal bruits. Extremities: 2+ pedal edema. No clubbing or cyanosis Neurologically awake, alert, oriented x2-3. No gross focal neurological deficit. Cognitive impairment mild. Skin: No rash or skin lesions. Psychiatric: Coperative. Could not be assessed completely Musculoskeletal: No joint swelling or deformity. Normal range of motion. Results CBC & Chem 7: 09/03/22 11:56 09/03/22 11:56 Labs: Abnormal Lab Results - Last 24 Hours (Table) 09/03/22 09/03/22 09/03/22 Range/Units 11:56 11:56 11:56 WBC 12.3 H (3.8-10.6) k/uL RBC 3.23 L (4.30-5.90) m/uL Hgb 8.8 L (13.0-17.5) gm/dL Hct 29.0 L (39.0-53.0) % MCHC 30.3 L (31.0-37.0) g/dL RDW 17.8 H (11.5-15.5) % Neutrophils # 10.8 H (1.3-7.7) k/uL Lymphocytes # 0.5 L (1.0-4.8) k/uL APTT 21.4 L (22.0-30.0) sec ABG pH (7.35-7.45) ABG pCO2 (35-45) mmHg ABG pO2 (83-108) mmHg ABG HCO3 (21-25) mmol/L ABG Total CO2 (19-24) mmol/L ABG O2 Saturation (94-97) % Potassium 3.3 L (3.5-5.1) mmol/L Carbon Dioxide 36 H (22-30) mmol/L BUN 22 H (9-20) mg/dL Glucose 122 H (74-99) mg/dL Calcium 7.6 L (8.4-10.2) mg/dL Alkaline Phosphatase 127 H (38-126) U/L Total Protein 5.1 L (6.3-8.2) g/dL Albumin 2.8 L (3.5-5.0) g/dL 09/03/22 Range/Units 12:00 WBC (3.8-10.6) k/uL RBC (4.30-5.90) m/uL Hgb (13.0-17.5) gm/dL Hct (39.0-53.0) % MCHC (31.0-37.0) g/dL RDW (11.5-15.5) % Neutrophils # (1.3-7.7) k/uL Lymphocytes # (1.0-4.8) k/uL APTT (22.0-30.0) sec ABG pH 7.47 H (7.35-7.45) ABG pCO2 52 H (35-45) mmHg ABG pO2 80 L (83-108) mmHg ABG HCO3 38 H (21-25) mmol/L ABG Total CO2 39 H (19-24) mmol/L ABG O2 Saturation 97.1 H (94-97) % Potassium (3.5-5.1) mmol/L Carbon Dioxide (22-30) mmol/L BUN (9-20) mg/dL Glucose (74-99) mg/dL Calcium (8.4-10.2) mg/dL Alkaline Phosphatase (38-126) U/L Total Protein (6.3-8.2) g/dL Albumin (3.5-5.0) g/dL Thrombosis Risk Factor Assmnt - DVT/VTE Prophylaxis DVT/VTE Prophylaxis: Pharmacologic Prophylaxis ordered Assessment and Plan Assessment: Acute COPD exacerbation with underlying pulmonary fibrosis UIP/IPF with organizing interstitial pneumonitis a and pulmonary fibrosis. Status post lung biopsy on 06/08/2022. Paroxysmal atrial fibrillation on anticoagulation with Eliquis Chronic hypoxic respiratory failure requiring 7 L oxygen at home currently. Hyperlipidemia Mild cognitive impairment GERD Bipolar disorder DVT prophylaxis patient is already on Eliquis Plan: Patient will be continued oxygen supplementation and continue with BiPAP currently. Will be continued on IV Solu-Medrol 60 mg every 6 hourly and DuoNebs. Patient was started on antibiotics Zosyn and azithromycin. Follow-up procalcitonin level. Continue with Lasix 40 mg IV every 12 for the next 24 hours and monitor renal function. Continue with home medications including Eliquis. Continue with metoprolol. GI prophylaxis with PPI. Discussed with his mother at bedside in detail. Prognosis is guarded at this time. Time with Patient: Greater than 30
[2022-09-04 06:17] LABS: Glucose,Whole Blood 202 mg/dL (70-110)
[2022-09-04] MEDS: methylPREDNISolone SOD SUCCI 125 MG/2 ML VIAL IV SCH ×4 (06:20→23:47)
[2022-09-04] MEDS: INSULIN ASPART (NovoLOG) 100 UNIT/ML VIAL SQ SCH ×4 (06:21→20:23)
[2022-09-04] MEDS: FORMOTEROL FUMARATE 20 MCG/2 ML NEBU INHALATION SCH ×2 (07:41→20:49)
[2022-09-04] MEDS: IPRATROPIUM-ALBUTEROL 3 ML NEB INHALATION SCH ×4 (07:41→20:49)
[2022-09-04] MEDS: BUDESONIDE 1 MG/2 ML NEBU INHALATION SCH ×2 (07:41→20:49)
[2022-09-04 08:51] LABS: Anisocytosis Slight; Basophils % (A) 0 %; Eosinophils % (A) 0 %; HCT 29.2 % (39.0-53.0); HGB 8.6 gm/dL (13.0-17.5); Hypochromasia Marked; Lymphocytes # (A) 0.7 k/uL (1.0-4.8); Lymphocytes % (A) 8 %; MCH 27.1 pg (25.0-35.0); MCHC 29.5 g/dL (31.0-37.0); MCV 91.8 fL (80.0-100.0); Mean Platelet Volume 8.3; Monocytes # (A) 0.5 k/uL (0-1.0); Monocytes % (A) 5 %; Neutrophils # (A) 8.4 k/uL (1.3-7.7); Neutrophils % (A) 87 %; Platelet Count 191 k/uL (150-450); Poikilocytosis Slight; RBC 3.18 m/uL (4.30-5.90); RDW 17.7 % (11.5-15.5); WBC 9.7 k/uL (3.8-10.6)
[2022-09-04] MEDS ORDERED: AZITHROMYCIN 500 MG in SODIUM CHLORIDE 0.9% 250 ML IVPB SCH (09:00)
[2022-09-04 09:09] LABS: African American GFR (CKD) >90 (>60 ml/min/1.73 sqM); Blood Urea Nitrogen 25 mg/dL (9-20); Calcium 7.6 mg/dL (8.4-10.2); Chloride 96 mmol/L (98-107); Glucose 169 mg/dL (74-99); Non-African American GFR(CKD) >90 (>60 ml/min/1.73 sqM); Potassium 3.4 mmol/L (3.5-5.1); Sodium 142 mmol/L (137-145)
[2022-09-04] MEDS: ISOSORBIDE MONONITRATE ER 30 MG TAB.ER.24H PO SCH (09:15)
[2022-09-04] MEDS: clonazePAM 0.5 MG TAB PO SCH ×3 (09:16→21:34)
[2022-09-04] MEDS: METOPROLOL TARTRATE 25 MG TAB PO SCH ×3 (09:16→21:01)
[2022-09-04] MEDS: TAMSULOSIN 0.4 MG CAP.ER.24H PO SCH (09:16)
[2022-09-04] MEDS: AMIODARONE 200 MG TAB PO SCH (09:16)
[2022-09-04] MEDS: VERAPAMIL SR 120 MG TABLET.ER PO SCH ×2 (09:16→20:24)
[2022-09-04] MEDS: PANTOPRAZOLE 40 MG TABLET PO SCH (09:16)
[2022-09-04] MEDS: POTASSIUM CHLORIDE ER 20 MEQ TAB.ER PO SCH ×2 (09:16→21:34)
[2022-09-04] MEDS: GABAPENTIN 400 MG CAP PO SCH ×3 (09:16→21:34)
[2022-09-04] MEDS: INSULIN DETEMIR (LEVEMIR) 100 UNIT/ML SYR SQ SCH ×2 (09:17→20:23)
[2022-09-04] MEDS: FUROSEMIDE 10 MG/ML 4 ML VIAL IV SCH ×2 (09:17→20:24)
[2022-09-04] MEDS: APIXABAN 5 MG TAB PO SCH ×2 (09:17→20:24)
[2022-09-04 09:24] LABS: Anion Gap 7 mmol/L
[2022-09-04 09:27] LABS: Carbon Dioxide 39 mmol/L (22-30)
[2022-09-04] MEDS: PIPERACILLIN-TAZOBACTAM 3.375 GM in SODIUM CHLORIDE 0.9% 100 ML IVPB SCH ×3 (09:27→23:48)
[2022-09-04 11:40] LABS: Glucose,Whole Blood 204 mg/dL (70-110)
--- NOTE | 2022-09-04 12:28 | P.CNPUL ---
History of Present Illness Consult date: 09/04/22 Reason for consult: dyspnea History of present illness: This is a 57-year-old male patient with chronic hypoxic respiratory failure and chronic cicatricial organizing pneumonia with COPD and chronic steroid dependence. The patient has had multiple hospitalizations for an acute on top of chronic hypoxic respiratory failure and he was released recently from the hospital to be readmitted for worsening shortness of breath and hypoxemia. The patient came into the emergency department after being discharged from the hospital on 08/30/2022. He was sent home on oxygen at 3 L per minute nasal cannula. He reported worsening shortness of breath at home and apparently his oxygen requirements also on the rise. For that reason he came back to the hospital. EMS placed the patient on a CPAP/BiPAP on route to the hospital. Currently is stable and he is resting comfortably in bed. Chest x-ray shows diffuse bilateral pulmonary infiltrates interstitial with volume loss. The patient had a blood gas that showed a pH of 7.47 with a pCO2 52 and pO2 of 80. The BUN is at 25 with a creatinine of 0.7. Sodium is at 42. The details of 9.7 with a hemoglobin of 8.6 and a platelet count of 190. The patient's breathing is nonlabored. Is still at 8 L of oxygen by nasal cannula. No chest pain. No swelling lower extremities and the patient is currently on IV Solu-Medrol 60 mg every 6 hours, DuoNeb nebulized treatments [id number] and he is also on a combination of Perforomist and Pulmicort updrafts twice a day. Was placed on accommodation of Zosyn and Zithromax. Is on long-term anticoagulation with Eliquis. Review of Systems CONSTITUTIONAL: Denies any recent significant weight loss or weight gain. EYES: Denies change in vision. EARS, NOSE, MOUTH, THROAT: Denies headaches, denies sore throat. CARDIOVASCULAR: Denies chest pain, palpitations or syncopal episodes. RESPIRATORY: Positive for shortness of breath, cough, congestion no hemoptysis. GASTROINTESTINAL: Denies change in appetite, denies abdominal pain GENITOURINARY: Denies hematuria, denies infections. MUSKULOSKELETAL: Denies pain, denies swelling. INTEGUMENTARY: Denies rash, denies eczema. NEUROLOGICAL: Denies recent memory loss, no recent seizure activity. PSYCHIATRIC: Denies anxiety, denies depression. HEMATOLOGIC/LYMPHATIC: Denies anemia, denies enlarged lymph nodes. Past Medical History Past Medical History: Coronary Artery Disease (CAD), COPD, GERD/Reflux, Hyperlipidemia, Hypertension, Memory Impairment, Pneumonia, Respiratory Disorder, Seizure Disorder, Skin Disorder, Sleep Apnea/CPAP/BIPAP Additional Past Medical History / Comment(s): FREQUENT VOMITING. HX ABSCESSES ON LEGS WITH MRSA, HX MRSA ON FACE, NECK, RIGHT THIGH AND LEFT CALF. CELLULTIS. HX SEIZURE X2, LAST IN 2011(BIT PART OF TONGUE OFF). HX BACK FRACTURE(2002), HX L1 COMPRESSION FRACTURE. ENLARGED HEART. CHRONIC BRONCHITIS. History of Any Multi-Drug Resistant Organisms: MRSA Date of last positivie culture/infection: 03/07/16 MDRO Source:: LEFT LEG Past Surgical History: Adenoidectomy, Appendectomy, Cholecystectomy, Heart Catheterization, Hernia Repair, Tonsillectomy Additional Past Surgical History / Comment(s): ABD HERNIA REPAIR X3, VENTRAL HERNIA REPAIR, LAP BAND, LAP REMOVAL OF LAP BAND AND PORT, COLONOSCOPY, EGD, EXCISION OF MRSA FROM FACE, NECK AND LEGS. UP3 surgery Past Anesthesia/Blood Transfusion Reactions: Previous Problems w/ Anesthesia Additional Past Anesthesia/Blood Transfusion Reaction / Comment(s): 1985 DURING TONSILLECTOMY AND ADENOIDECTOMY DEVELOPED FLUID IN LUNGS, WAS PUT ON VENT. Past Psychological History: Bipolar, Depression Smoking Status: Current some day smoker Past Alcohol Use History: None Reported Past Drug Use History: Cocaine, Marijuana - Past Family History Mother Family Medical History: No Reported History Additional Family Medical History / Comment(s): PT STATED MOM IS HEALTHY Father Family Medical History: Cancer Additional Family Medical History / Comment(s): LYMPHOMA. Medications and Allergies Home Medications Medication Instructions Recorded Confirmed Type Omeprazole 20 mg PO DAILY 01/08/19 09/03/22 History Cetirizine HCl 10 mg PO DAILY 09/06/21 09/03/22 History Donepezil [Aricept] 5 mg PO HS 09/06/21 09/03/22 History Isosorbide Mononitrate ER [Imdur] 30 mg PO DAILY 09/06/21 09/03/22 History Sertraline HCl [Zoloft] 200 mg PO DAILY 09/06/21 09/03/22 History traZODone HCL 150 mg PO HS PRN 09/06/21 09/03/22 History Atorvastatin Calcium [Lipitor] 40 mg PO DAILY 05/03/22 09/03/22 History Ezetimibe [Zetia] 10 mg PO DAILY #30 tab 05/14/22 09/03/22 Rx Furosemide [Lasix] 40 mg PO Q48H #30 tab 06/11/22 09/03/22 Rx metFORMIN HCL [Glucophage] 500 mg PO BID #60 tab 06/11/22 09/03/22 Rx Budesonide-Formot 160-4.5 Mcg 1 puff INHALATION RT-BID 06/16/22 09/03/22 History [Symbicort 160-4.5 Mcg Inhaler] Apixaban [Eliquis] 5 mg PO BID tab 07/03/22 09/03/22 Rx Gabapentin [Neurontin] 400 mg PO TID #9 cap 07/03/22 09/03/22 Rx HYDROcodone/APAP 7.5-325MG [[place] 1 tab PO TID PRN #3 tab 07/03/22 09/03/22 Rx 7.5-325] Linagliptin [Tradjenta] 5 mg PO DAILY tab 07/03/22 09/03/22 Rx Verapamil Sr [Isoptin Sr] 120 mg PO BID tab 07/03/22 09/03/22 Rx haloperidoL 2 mg PO DAILY #2 tab 07/03/22 09/03/22 Rx Insulin Lispro [humaLOG Kwikpen] See Protocol SQ ACHS 08/25/22 09/03/22 History Ipratropium-Albuterol Nebulize 3 ml INHALATION RT-Q6H PRN 08/25/22 09/03/22 History [Duoneb 0.5 mg-3 mg/3 ml Soln] Metoprolol Tartrate [Lopressor] 25 mg PO TID 08/25/22 09/03/22 History Tamsulosin HCl [Flomax] 0.4 mg PO DAILY 08/25/22 09/03/22 History clonazePAM [KlonoPIN] 0.5 mg PO TID 08/25/22 09/03/22 History Insulin Glargine,Hum.rec.anlog 20 units SQ BID #0 08/30/22 09/03/22 Rx [Lantus Solostar Pen] predniSONE [Deltasone] 60 mg PO DAILY #100 tab 08/30/22 09/03/22 Rx Amiodarone [Cordarone] 100 mg PO DAILY 09/03/22 09/03/22 History Allergies Allergy/AdvReac Type Severity Reaction Status Date / Time No Known Allergies Allergy Verified 09/03/22 15:49 Physical Exam Vitals: Vital Signs Temp Pulse Pulse Pulse Resp BP BP 09/04/22 09:11 98.1 F 64 19 112/65 09/04/22 08:08 60 09/04/22 07:55 56 L 09/04/22 07:41 51 L 09/04/22 04:42 09/04/22 04:00 98.8 F 54 L 20 111/70 09/04/22 02:00 60 28 H 09/04/22 00:00 98.9 F 60 28 H 130/81 09/03/22 23:35 98.9 F 60 28 H 130/81 09/03/22 22:55 57 L 09/03/22 22:46 56 L 09/03/22 20:00 98.1 F 18 103/68 09/03/22 18:56 98.0 F 63 18 101/68 09/03/22 15:45 73 22 09/03/22 15:43 70 23 92/60 09/03/22 15:35 68 28 H 09/03/22 13:30 80 24 09/03/22 12:29 73 23 100/74 09/03/22 12:17 84 28 H 09/03/22 12:07 24 09/03/22 12:00 74 26 H 09/03/22 11:55 89 18 113/66 09/03/22 11:46 09/03/22 11:41 09/03/22 11:40 97.7 F 75 24 113/66 Pulse Ox FiO2 09/04/22 09:11 89 L 09/04/22 08:08 09/04/22 07:55 09/04/22 07:41 60 09/04/22 04:42 60 09/04/22 04:00 99 60 09/04/22 02:00 09/04/22 00:00 95 60 09/03/22 23:35 97 60 09/03/22 22:55 09/03/22 22:46 60 09/03/22 20:00 97 60 09/03/22 18:56 98 09/03/22 15:45 09/03/22 15:43 91 L 09/03/22 15:35 60 09/03/22 13:30 96 09/03/22 12:29 95 09/03/22 12:17 09/03/22 12:07 09/03/22 12:00 09/03/22 11:55 96 09/03/22 11:46 60 09/03/22 11:41 60 09/03/22 11:40 83 L Intake and Output 09/03/22 09/04/22 09/04/22 22:59 06:59 14:59 Output Total 1825 750 Balance -1825 -750 Output: Urine 1825 750 Other: Voiding Method Urinal Urinal Weight 95.5 kg GENERAL EXAM: Alert, 57-year-old male resting comfortably in bed, on 8 L high flow nasal cannula, in no apparent distress. HEAD: Normocephalic. EYES: Normal reaction of pupils, equal size. NOSE: Clear with pink turbinates. THROAT: No erythema or exudates. NECK: No masses, no JVD. CHEST: No chest wall deformity. LUNGS: Equal air entry with diffuse coarse crackles bilaterally. CVS: S1 and S2 normal with no audible murmur, regular rhythm. ABDOMEN: No hepatosplenomegaly, normal bowel sounds, no guarding or rigidity. SPINE: No scoliosis or deformity SKIN: No rashes CENTRAL NERVOUS SYSTEM: No focal deficits, tone is normal in all 4 extremities. EXTREMITIES: There is no peripheral edema. No clubbing, no cyanosis. Peripheral pulses are intact. Results - Laboratory Findings CBC and BMP: 09/04/22 08:09 09/04/22 08:09 ABG ABG pH 7.47 (7.35-7.45) H 09/03/22 12:00 ABG pCO2 52 mmHg (35-45) H 09/03/22 12:00 ABG pO2 80 mmHg (83-108) L 09/03/22 12:00 ABG O2 Saturation 97.1 % (94-97) H 09/03/22 12:00 PT/INR, D-dimer PT 10.7 sec (9.0-12.0) 09/03/22 11:56 INR 1.0 (<1.2) 09/03/22 11:56 Abnormal lab findings: Abnormal Labs 09/03/22 09/03/22 09/03/22 11:56 11:56 11:56 WBC 12.3 H RBC 3.23 L Hgb 8.8 L Hct 29.0 L MCHC 30.3 L RDW 17.8 H Neutrophils # 10.8 H Lymphocytes # 0.5 L APTT 21.4 L ABG pH ABG pCO2 ABG pO2 ABG HCO3 ABG Total CO2 ABG O2 Saturation Potassium 3.3 L Chloride Carbon Dioxide 36 H BUN 22 H Glucose 122 H POC Glucose (mg/dL) Calcium 7.6 L Alkaline Phosphatase 127 H Total Protein 5.1 L Albumin 2.8 L Procalcitonin 09/03/22 09/03/22 09/03/22 12:00 19:42 21:27 WBC RBC Hgb Hct MCHC RDW Neutrophils # Lymphocytes # APTT ABG pH 7.47 H ABG pCO2 52 H ABG pO2 80 L ABG HCO3 38 H ABG Total CO2 39 H ABG O2 Saturation 97.1 H Potassium Chloride Carbon Dioxide BUN Glucose POC Glucose (mg/dL) 235 H Calcium Alkaline Phosphatase Total Protein Albumin Procalcitonin 0.29 H 09/03/22 09/04/22 09/04/22 23:55 06:15 08:09 WBC RBC 3.18 L Hgb 8.6 L Hct 29.2 L MCHC 29.5 L RDW 17.7 H Neutrophils # 8.4 H Lymphocytes # 0.7 L APTT ABG pH ABG pCO2 ABG pO2 ABG HCO3 ABG Total CO2 ABG O2 Saturation Potassium Chloride Carbon Dioxide BUN Glucose POC Glucose (mg/dL) 214 H 202 H Calcium Alkaline Phosphatase Total Protein Albumin Procalcitonin 09/04/22 08:09 WBC RBC Hgb Hct MCHC RDW Neutrophils # Lymphocytes # APTT ABG pH ABG pCO2 ABG pO2 ABG HCO3 ABG Total CO2 ABG O2 Saturation Potassium 3.4 L Chloride 96 L Carbon Dioxide 39 H BUN 25 H Glucose 169 H POC Glucose (mg/dL) Calcium 7.6 L Alkaline Phosphatase Total Protein Albumin Procalcitonin - Diagnostic Findings Chest x-ray: image reviewed Assessment and Plan Plan: Acute on chronic hypoxic respiratory failure secondary to cicatrical organizing pneumonia which is a variant of cryptogenic organizing pneumonia, steroids responsive. The patient was discharged home on 08/30/2022 to be admitted to background to cause of ongoing shortness of breath and hypoxemia. Chest x-ray shows chronic ILD without any major interval change. Superinfection is hard to exclude. The patient is comfortable on 8 L of Oxymizer nasal cannula. He is on bronchodilators. On IV Solu-Medrol. He is on accommodation of Zosyn and Zithromax. Severe COPD Underlying coronary artery disease and previous cardiac catheterization in September 2021 Congestion heart failure, mildly impaired systolic function based on old echocardiogram from 2018 and a repeat echocardiogram from 05/04/2022 showed a preserved LV function with moderate LVH. Hypertension Dyslipidemia Schizophrenia History of seizure disorder History of obstructive sleep apnea and previous UPPP. Plan Titrate FiO2 to maintain a saturation of 90% Continue IV Solu-Medrol Continue the antibiotic coverage We'll continue to follow. Prognosis poor. High risk for admission based on the above-mentioned comorbidities.
[2022-09-04] MEDS ORDERED: POTASSIUM CHLORIDE ER 20 MEQ TAB.ER PO STA (13:09)
--- NOTE | 2022-09-04 14:14 | P.PN ---
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 Patient does have severe severe COPD. Constitutional: Denied any fatigue denied any fever. Cardio vascular: denied any chest pain, palpitations Gastrointestinal denied any nausea vomiting Pulmonary: Still significantly short of breath Neurologic denied any new focal deficits All inpatient medications were reviewed and appropriate changes in these medications as dictated in the interval history and assessment and plan. PHYSICAL EXAMINATION: GENERAL: The patient is alert and oriented x3, not in any acute distress. Well developed, well nourished. HEENT: Pupils are round and equally reacting to light. EOMI. No scleral icterus. No conjunctival pallor. Normocephalic, atraumatic. No pharyngeal erythema. No thyromegaly. CARDIOVASCULAR: S1 and S2 present. No murmurs, rubs, or gallops. PULMONARY: Diffuse bilateral crackles and rhonchi ABDOMEN: Soft, nontender, nondistended, normoactive bowel sounds. No palpable organomegaly. MUSCULOSKELETAL: No joint swelling or deformity. EXTREMITIES: No cyanosis, clubbing, or pedal edema. NEUROLOGICAL: Gross neurological examination did not reveal any focal deficits. SKIN: No rashes. Assessment and plan: -Acute on chronic hypoxic respiratory failure wasn't hypoxic respiratory failure is secondary to cryptogenic organizing pneumonia, patient is on IV steroids for that patient has a competent of pulmonary fibrosis as well. -Significant exacerbation -Possibility of diastolic dysfunction and heart failure for which patient is being continued on Lasix patient does have bilateral pleural effusions and I cannot completely rule out CHF will continue Lasix for 1 more night and see if there is any improvement in respiratory status patient is presently on several liters of oxygen neck sign and hyperlipidemia -Gastroesophageal reflux disease -Basilar this Objective - Vital Signs Vital signs: Vital Signs Temp 98.1 F 09/04/22 09:11 Pulse 66 09/04/22 12:54 Resp 18 09/04/22 12:54 BP 94/52 09/04/22 12:54 Pulse Ox 90 L 09/04/22 12:54 FiO2 60 09/04/22 07:41 Intake & Output 09/03/22 09/04/22 09/04/22 18:59 06:59 18:59 Intake Total 120 Output Total 2125 1075 Balance -2125 -1075 120 Weight 101.605 kg 95.5 kg Intake: Oral 120 Output: Urine 1500 1075 Other 625 Other: Voiding Method Urinal Urinal - Labs CBC & Chem 7: 09/04/22 08:09 09/04/22 08:09 Labs: Abnormal Lab Results - Last 24 Hours (Table) 09/03/22 09/03/22 09/03/22 Range/Units 19:42 21:27 23:55 RBC (4.30-5.90) m/uL Hgb (13.0-17.5) gm/dL Hct (39.0-53.0) % MCHC (31.0-37.0) g/dL RDW (11.5-15.5) % Neutrophils # (1.3-7.7) k/uL Lymphocytes # (1.0-4.8) k/uL Potassium (3.5-5.1) mmol/L Chloride (98-107) mmol/L Carbon Dioxide (22-30) mmol/L BUN (9-20) mg/dL Glucose (74-99) mg/dL POC Glucose (mg/dL) 235 H 214 H (70-110) mg/dL Calcium (8.4-10.2) mg/dL Procalcitonin 0.29 H (0.02-0.09) ng/mL 09/04/22 09/04/22 09/04/22 Range/Units 06:15 08:09 08:09 RBC 3.18 L (4.30-5.90) m/uL Hgb 8.6 L (13.0-17.5) gm/dL Hct 29.2 L (39.0-53.0) % MCHC 29.5 L (31.0-37.0) g/dL RDW 17.7 H (11.5-15.5) % Neutrophils # 8.4 H (1.3-7.7) k/uL Lymphocytes # 0.7 L (1.0-4.8) k/uL Potassium 3.4 L (3.5-5.1) mmol/L Chloride 96 L (98-107) mmol/L Carbon Dioxide 39 H (22-30) mmol/L BUN 25 H (9-20) mg/dL Glucose 169 H (74-99) mg/dL POC Glucose (mg/dL) 202 H (70-110) mg/dL Calcium 7.6 L (8.4-10.2) mg/dL Procalcitonin (0.02-0.09) ng/mL 09/04/22 Range/Units 11:39 RBC (4.30-5.90) m/uL Hgb (13.0-17.5) gm/dL Hct (39.0-53.0) % MCHC (31.0-37.0) g/dL RDW (11.5-15.5) % Neutrophils # (1.3-7.7) k/uL Lymphocytes # (1.0-4.8) k/uL Potassium (3.5-5.1) mmol/L Chloride (98-107) mmol/L Carbon Dioxide (22-30) mmol/L BUN (9-20) mg/dL Glucose (74-99) mg/dL POC Glucose (mg/dL) 204 H (70-110) mg/dL Calcium (8.4-10.2) mg/dL Procalcitonin (0.02-0.09) ng/mL
[2022-09-04] MEDS ORDERED: methylPREDNISolone SOD SUCCI 40 MG/ML 1 ML VIAL IV SCH (16:00)
[2022-09-04 17:04] LABS: Glucose,Whole Blood 510 mg/dL (70-110)
[2022-09-04 17:04] LABS: Glucose,Whole Blood 501 mg/dL (70-110)
[2022-09-04 18:48] LABS: Glucose,Whole Blood 477 mg/dL (70-110)
[2022-09-04] MEDS: metFORMIN 500 MG TAB PO SCH (19:06)
[2022-09-04] MEDS: LINAGLIPTIN 5 MG TABLET PO SCH (19:06)
[2022-09-04 19:50] LABS: Glucose,Whole Blood 441 mg/dL (70-110)
[2022-09-04 23:56] LABS: Glucose,Whole Blood 238 mg/dL (70-110)
[2022-09-05 06:17] LABS: Glucose,Whole Blood 211 mg/dL (70-110)
[2022-09-05] MEDS: INSULIN ASPART (NovoLOG) 100 UNIT/ML VIAL SQ SCH ×4 (06:22→21:18)
[2022-09-05] MEDS: IPRATROPIUM-ALBUTEROL 3 ML NEB INHALATION SCH ×4 (08:20→20:59)
[2022-09-05] MEDS: BUDESONIDE 1 MG/2 ML NEBU INHALATION SCH ×2 (08:20→20:59)
[2022-09-05] MEDS: FORMOTEROL FUMARATE 20 MCG/2 ML NEBU INHALATION SCH ×2 (08:20→20:59)
[2022-09-05] MEDS: EZETIMIBE 10 MG TAB PO SCH (09:04)
[2022-09-05] MEDS: TAMSULOSIN 0.4 MG CAP.ER.24H PO SCH (09:04)
[2022-09-05] MEDS: APIXABAN 5 MG TAB PO SCH ×2 (09:04→21:19)
[2022-09-05] MEDS: LINAGLIPTIN 5 MG TABLET PO SCH (09:04)
[2022-09-05] MEDS: METOPROLOL TARTRATE 25 MG TAB PO SCH ×3 (09:04→21:19)
[2022-09-05] MEDS: INSULIN DETEMIR (LEVEMIR) 100 UNIT/ML SYR SQ SCH ×2 (09:05→21:17)
[2022-09-05] MEDS: AMIODARONE 200 MG TAB PO SCH (09:05)
[2022-09-05] MEDS: SERTRALINE 100 MG TAB PO SCH (09:05)
[2022-09-05] MEDS: metFORMIN 500 MG TAB PO SCH ×2 (09:06→21:19)
[2022-09-05] MEDS: ISOSORBIDE MONONITRATE ER 30 MG TAB.ER.24H PO SCH (09:06)
[2022-09-05] MEDS: GABAPENTIN 400 MG CAP PO SCH ×3 (09:08→21:18)
[2022-09-05] MEDS: clonazePAM 0.5 MG TAB PO SCH ×3 (09:08→21:18)
[2022-09-05] MEDS: VERAPAMIL SR 120 MG TABLET.ER PO SCH ×2 (09:08→21:19)
[2022-09-05] MEDS: ATORVASTATIN 40 MG TAB PO SCH (09:08)
[2022-09-05] MEDS: HYDROcodone/APAP 7.5-325MG 1 EACH TAB PO PRN (09:09)
[2022-09-05] MEDS: methylPREDNISolone SOD SUCCI 125 MG/2 ML VIAL IV SCH ×2 (09:09→17:06)
[2022-09-05] MEDS: PANTOPRAZOLE 40 MG TABLET PO SCH (09:09)
[2022-09-05] MEDS: PIPERACILLIN-TAZOBACTAM 3.375 GM in SODIUM CHLORIDE 0.9% 100 ML IVPB SCH ×2 (09:10→17:06)
[2022-09-05] MEDS: FUROSEMIDE 10 MG/ML 4 ML VIAL IV SCH ×2 (09:10→21:18)
[2022-09-05 12:06] LABS: Glucose,Whole Blood 261 mg/dL (70-110)
--- NOTE | 2022-09-05 12:13 | P.PN ---
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 The patient has had multiple hospitalizations for an acute on top of chronic hypoxic respiratory failure and he was released recently from the hospital to be readmitted for worsening shortness of breath and hypoxemia. The patient came into the emergency department after being discharged from the hospital on 08/30/2022. He was sent home on oxygen at 3 L per minute nasal cannula. He reported worsening shortness of breath at home and apparently his oxygen requirements also on the rise. For that reason he came back to the hospital. EMS placed the patient on a CPAP/BiPAP on route to the hospital. Currently is stable and he is resting comfortably in bed. Chest x-ray shows diffuse bilateral pulmonary infiltrates interstitial with volume loss. The patient had a blood gas that showed a pH of 7.47 with a pCO2 52 and pO2 of 80. The BUN is at 25 with a creatinine of 0.7. Sodium is at 42. The details of 9.7 with a hemoglobin of 8.6 and a platelet count of 190. The patient's breathing is nonlabored. Is still at 8 L of oxygen by nasal cannula. No chest pain. No swelling lower extremities and the patient is currently on IV Solu-Medrol 60 mg every 6 hours, DuoNeb nebulized treatments [id number] and he is also on a combination of Perforomist and Pulmicort updrafts twice a day. Was placed on accommodation of Zosyn and Zithromax. Is on long-term anticoagulation with Eliquis. On today's evaluation of 09/05/2022, the patient's condition is stable essentially unchanged compared to yesterday. There is no interval improvement or worsening compared to yesterday. Remains on 8 L of oxygen by nasal cannula. He remains on Zosyn and the patient is on IV Solu-Medrol 60 mg every 8 hours. He typically responds to steroids. Meanwhile, the patient's blood sugars from this morning is 261. The patient had a pro-calcitonin level of 0.29. ProBNP level was 1460. He is tolerating diet. Is communicating. Not using the BiPAP for now. Objective - Vital Signs Vital signs: Vital Signs Temp 97.6 F 09/05/22 08:51 Pulse 63 09/05/22 08:51 Resp 20 09/05/22 08:51 BP 110/67 09/05/22 08:51 Pulse Ox 95 09/05/22 08:51 FiO2 60 09/05/22 08:21 Intake & Output 09/04/22 09/05/22 09/05/22 18:59 06:59 18:59 Intake Total 240 100 118 Output Total 800 900 Balance 240 700 782 Weight 94.5 kg Intake: IV 100 Piperacillin-Tazobactam 3 100 .375 gm In Sodium Chloride 0.9% 100 ml @ 25 mls/hr IVPB Q8HR [facility] [place] Rx# :[id number] Oral 240 118 Output: Urine 800 900 Other: Voiding Method Urinal Urinal # Voids 2 - Exam GENERAL EXAM: Alert, 57-year-old male resting comfortably in bed, on 8 L high flow nasal cannula, in no apparent distress. HEAD: Normocephalic. EYES: Normal reaction of pupils, equal size. NOSE: Clear with pink turbinates. THROAT: No erythema or exudates. NECK: No masses, no JVD. CHEST: No chest wall deformity. LUNGS: Equal air entry with diffuse coarse crackles bilaterally. CVS: S1 and S2 normal with no audible murmur, regular rhythm. ABDOMEN: No hepatosplenomegaly, normal bowel sounds, no guarding or rigidity. SPINE: No scoliosis or deformity SKIN: No rashes CENTRAL NERVOUS SYSTEM: No focal deficits, tone is normal in all 4 extremities. EXTREMITIES: There is no peripheral edema. No clubbing, no cyanosis. Peripheral pulses are intact. - Labs CBC & Chem 7: 09/04/22 08:09 09/04/22 08:09 Labs: Abnormal Lab Results - Last 24 Hours (Table) 09/04/22 09/04/22 09/04/22 Range/Units 08:09 11:39 17:00 POC Glucose (mg/dL) 204 H 510 H (70-110) mg/dL Hemoglobin A1c 7.7 H (0.0-6.0) % 09/04/22 09/04/22 09/04/22 Range/Units 17:02 18:46 19:48 POC Glucose (mg/dL) 501 H 477 H 441 H (70-110) mg/dL Hemoglobin A1c (0.0-6.0) % 09/04/22 09/05/22 Range/Units 23:53 06:16 POC Glucose (mg/dL) 238 H 211 H (70-110) mg/dL Hemoglobin A1c (0.0-6.0) % Assessment and Plan Plan: Acute on chronic hypoxic respiratory failure secondary to cicatrical organizing pneumonia which is a variant of cryptogenic organizing pneumonia, steroids responsive. The patient was discharged home on 08/30/2022 to be admitted to background to cause of ongoing shortness of breath and hypoxemia. Chest x-ray shows chronic ILD without any major interval change. Superinfection is hard to exclude. The patient is comfortable on 8 L of Oxymizer nasal cannula. He is on bronchodilators. On IV Solu-Medrol. He is on accommodation of Zosyn and Zithromax. Severe COPD Underlying coronary artery disease and previous cardiac catheterization in September 2021 Congestion heart failure, mildly impaired systolic function based on old echocardiogram from 2018 and a repeat echocardiogram from 05/04/2022 showed a preserved LV function with moderate LVH. Hypertension Dyslipidemia Schizophrenia History of seizure disorder History of obstructive sleep apnea and previous UPPP. Plan Titrate FiO2 to maintain a saturation of 90% Keep the patient 8 L of oxygen by nasal cannula to maintain a saturation above 90% and titrate FiO2 as possible Continue IV Solu-Medrol, as the patient typically responds to systemic steroids and he'll be kept on Solu-Medrol 60 mg every 8 hours Monitor the blood sugar BiPAP if needed Monitor electrolytes Aspiration precautions Advance diet We'll continue to follow Continue the antibiotic coverage We'll continue to follow. Prognosis poor. High risk for admission based on the above-mentioned comorbidities.
[2022-09-05 16:47] LABS: Glucose,Whole Blood 189 mg/dL (70-110)
[2022-09-05 20:03] LABS: Glucose,Whole Blood 233 mg/dL (70-110)
--- NOTE | 2022-09-05 20:50 | P.PN ---
Subjective Progress Note Date: 09/05/22 57-year-old the male was readmitted because of possible pneumonia patient does have history of pulmonary fibrosis and patient is believed to have Cicatrical organizing pneumonia, a variant of cryptogenic organizing pneumonia which usually responds to steroids and patient is on high-dose steroids at this time patient is also on antibiotics for superimposed pneumonia azithromycin will discontinue patient will continued on Zosyn. Patient does have severe COPD. 09/05/2022 Patient is seen and evaluated and follow-up probably sitting up in the chair maintained on high flow 8 L via nasal cannula. Patient reports he chronically wears centimeters outpatient with advanced COPD along with cryptogenic organizing pneumonia. Patient is maintained on high-dose steroids with pulmonary following closely and reports has not required BiPAP overnight. Patient is maintained on IV antibiotics and will continue at this time. Recommend monitoring Accu-Cheks before meals and at bedtime as blood sugars have been uncontrolled and elevated and will adjust medications accordingly. Patient is currently afebrile denies chest pain or palpitations, continues to report shortness of breath with minimal exertion and patient reports overall weakness. Patient denies nausea or vomiting and is tolerating diet. Review of systems: Constitutional: Denied any fatigue denied any fever. Cardio vascular: denied any chest pain, palpitations Gastrointestinal denied any nausea vomiting Pulmonary: Still reporting short of breath with minimal exertion Neurologic denied any new focal deficits All inpatient medications were reviewed and appropriate changes in these medications as dictated in the interval history and assessment and plan. PHYSICAL EXAMINATION: GENERAL: The patient is alert and oriented x3, not in any acute distress. Well developed, well nourished. HEENT: Pupils are round and equally reacting to light. EOMI. No scleral icterus. No conjunctival pallor. Normocephalic, atraumatic. No pharyngeal erythema. No thyromegaly. CARDIOVASCULAR: S1 and S2 present. No murmurs, rubs, or gallops. PULMONARY: Diffuse bilateral crackles and coarse rhonchi noted throughout ABDOMEN: Soft, nontender, nondistended, normoactive bowel sounds. No palpable organomegaly. MUSCULOSKELETAL: No joint swelling or deformity. EXTREMITIES: No cyanosis, clubbing, or pedal edema. NEUROLOGICAL: Gross neurological examination did not reveal any focal deficits. SKIN: No rashes. Assessment: -Acute on chronic hypoxic respiratory failure secondary to cryptogenic organizing pneumonia, patient is on IV steroids for that patient has a competent of pulmonary fibrosis as well. -Significant COPD exacerbation -Possibility of diastolic dysfunction heart failure for which patient is being continued on Lasix. patient does have bilateral pleural effusions and I cannot completely rule out CHF will continue Lasix for 1 more night and see if there is any improvement in respiratory status -hyperlipidemia -Hypertension -Gastroesophageal reflux disease -History of coronary artery disease -GI prophylaxis -DVT prophylaxis -No code Plan: Recommend continue with current medications and management with multiple consultations following. Patient currently maintained on 8 L high flow nasal cannula and chronically wears centimeters. Patient is continued on IV steroids along with DuoNeb inhalers and will continue Patient also continued on IV Lasix and recommended follow-up labs and replace electrolytes per protocol Encouraged increased activity as tolerated. Per nursing staff patient desats quickly into the low 80s with minimal exertion The impression and plan of care has been dictated by Becki Javed, Nurse Practitioner as directed. Dr. Lina MD I have performed a history and examination and MDM of this patient, discussed the same with the dictator, and agree with the dictator's assessment and plan as written ,documented as a scribe. Based on total visit time, I have performed more than 50% of the visit. Objective - Vital Signs Vital signs: Vital Signs Temp 97.6 F 09/05/22 08:51 Pulse 63 09/05/22 08:51 Resp 20 09/05/22 08:51 BP 110/67 09/05/22 08:51 Pulse Ox 95 09/05/22 08:51 FiO2 60 09/05/22 08:21 Intake & Output 09/04/22 09/05/22 09/05/22 18:59 06:59 18:59 Intake Total 240 100 118 Output Total 800 500 Balance 240 -700 -382 Weight 94.5 kg Intake: IV 100 Piperacillin-Tazobactam 3 100 .375 gm In Sodium Chloride 0.9% 100 ml @ 25 mls/hr IVPB Q8HR [facility] Rx# :[id number] Oral 240 118 Output: Urine 800 500 Other: Voiding Method Urinal Urinal # Voids 2 - Labs CBC & Chem 7: 09/04/22 08:09 09/04/22 08:09 Labs: Abnormal Lab Results - Last 24 Hours (Table) 05/30/23 05/30/23 05/30/23 Range/Units 08:09 11:39 17:00 POC Glucose (mg/dL) 204 H 510 H (70-110) mg/dL Hemoglobin A1c 7.7 H (0.0-6.0) % 09/04/22 09/04/22 09/04/22 Range/Units 17:02 18:46 19:48 POC Glucose (mg/dL) 501 H 477 H 441 H (70-110) mg/dL Hemoglobin A1c (0.0-6.0) % 09/04/22 09/05/22 Range/Units 23:53 06:16 POC Glucose (mg/dL) 238 H 211 H (70-110) mg/dL Hemoglobin A1c (0.0-6.0) %
[2022-09-06] MEDS: PIPERACILLIN-TAZOBACTAM 3.375 GM in SODIUM CHLORIDE 0.9% 100 ML IVPB SCH ×4 (00:14→23:57)
[2022-09-06] MEDS: methylPREDNISolone SOD SUCCI 125 MG/2 ML VIAL IV SCH ×2 (00:15→08:44)
[2022-09-06 05:57] LABS: Glucose,Whole Blood 275 mg/dL (70-110)
[2022-09-06] MEDS: INSULIN ASPART (NovoLOG) 100 UNIT/ML VIAL SQ SCH ×4 (06:50→21:38)
[2022-09-06] MEDS: ATORVASTATIN 40 MG TAB PO SCH (08:42)
[2022-09-06] MEDS: ISOSORBIDE MONONITRATE ER 30 MG TAB.ER.24H PO SCH (08:42)
[2022-09-06] MEDS: SERTRALINE 100 MG TAB PO SCH (08:42)
[2022-09-06] MEDS: AMIODARONE 200 MG TAB PO SCH (08:42)
[2022-09-06] MEDS: TAMSULOSIN 0.4 MG CAP.ER.24H PO SCH (08:42)
[2022-09-06] MEDS: METOPROLOL TARTRATE 25 MG TAB PO SCH ×3 (08:42→21:31)
[2022-09-06] MEDS: PANTOPRAZOLE 40 MG TABLET PO SCH ×2 (08:43→17:19)
[2022-09-06] MEDS: GABAPENTIN 400 MG CAP PO SCH ×3 (08:43→21:37)
[2022-09-06] MEDS: HYDROcodone/APAP 7.5-325MG 1 EACH TAB PO PRN ×2 (08:43→21:37)
[2022-09-06] MEDS: VERAPAMIL SR 120 MG TABLET.ER PO SCH ×2 (08:43→21:37)
[2022-09-06] MEDS: LINAGLIPTIN 5 MG TABLET PO SCH (08:43)
[2022-09-06] MEDS: APIXABAN 5 MG TAB PO SCH ×2 (08:43→21:37)
[2022-09-06] MEDS: clonazePAM 0.5 MG TAB PO SCH ×3 (08:43→21:37)
[2022-09-06] MEDS: metFORMIN 500 MG TAB PO SCH ×2 (08:43→21:37)
[2022-09-06] MEDS: EZETIMIBE 10 MG TAB PO SCH (08:43)
[2022-09-06] MEDS: FUROSEMIDE 10 MG/ML 4 ML VIAL IV SCH ×2 (08:44→21:38)
[2022-09-06] MEDS: INSULIN DETEMIR (LEVEMIR) 100 UNIT/ML SYR SQ SCH ×2 (08:45→21:39)
[2022-09-06] MEDS: BUDESONIDE 1 MG/2 ML NEBU INHALATION SCH ×2 (08:55→20:32)
[2022-09-06] MEDS: FORMOTEROL FUMARATE 20 MCG/2 ML NEBU INHALATION SCH ×2 (08:55→20:32)
[2022-09-06] MEDS: IPRATROPIUM-ALBUTEROL 3 ML NEB INHALATION SCH ×4 (08:55→20:31)
[2022-09-06 08:57] LABS: Anisocytosis Slight; Basophils % (A) 0 %; Eosinophils % (A) 0 %; HCT 28.2 % (39.0-53.0); HGB 8.4 gm/dL (13.0-17.5); Hypochromasia Marked; Lymphocytes # (A) 0.3 k/uL (1.0-4.8); Lymphocytes % (A) 3 %; MCH 26.9 pg (25.0-35.0); MCHC 29.6 g/dL (31.0-37.0); MCV 90.8 fL (80.0-100.0); Mean Platelet Volume 8.5; Monocytes # (A) 0.5 k/uL (0-1.0); Monocytes % (A) 5 %; Neutrophils # (A) 8.9 k/uL (1.3-7.7); Neutrophils % (A) 92 %; Platelet Count 169 k/uL (150-450); Poikilocytosis Moderate; RBC 3.11 m/uL (4.30-5.90); RDW 17.4 % (11.5-15.5); WBC 9.8 k/uL (3.8-10.6)
[2022-09-06 09:03] LABS: African American GFR (CKD) >90 (>60 ml/min/1.73 sqM); Blood Urea Nitrogen 30 mg/dL (9-20); Calcium 7.9 mg/dL (8.4-10.2); Chloride 90 mmol/L (98-107); Glucose 213 mg/dL (74-99); Non-African American GFR(CKD) >90 (>60 ml/min/1.73 sqM); Potassium 3.4 mmol/L (3.5-5.1); Sodium 139 mmol/L (137-145)
[2022-09-06 09:09] LABS: Anion Gap 7 mmol/L
[2022-09-06] MEDS ORDERED: Potassium Replacement Protocol 1 EACH MISC MISCELLANE PRN (09:32)
[2022-09-06] MEDS: POTASSIUM CHLORIDE ER 20 MEQ TAB.ER PO SCH ×2 (10:51→12:10)
[2022-09-06 11:54] LABS: Glucose,Whole Blood 205 mg/dL (70-110)
[2022-09-06] MEDS: predniSONE 20 MG TAB PO SCH (12:10)
[2022-09-06 14:28] LABS: Carbon Dioxide 42 mmol/L (22-30)
--- NOTE | 2022-09-06 15:41 | P.PN ---
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 The patient has had multiple hospitalizations for an acute on top of chronic hypoxic respiratory failure and he was released recently from the hospital to be readmitted for worsening shortness of breath and hypoxemia. The patient came into the emergency department after being discharged from the hospital on 08/30/2022. He was sent home on oxygen at 3 L per minute nasal cannula. He reported worsening shortness of breath at home and apparently his oxygen requirements also on the rise. For that reason he came back to the hospital. EMS placed the patient on a CPAP/BiPAP on route to the hospital. Currently is stable and he is resting comfortably in bed. Chest x-ray shows diffuse bilateral pulmonary infiltrates interstitial with volume loss. The patient had a blood gas that showed a pH of 7.47 with a pCO2 52 and pO2 of 80. The BUN is at 25 with a creatinine of 0.7. Sodium is at 42. The details of 9.7 with a hemoglobin of 8.6 and a platelet count of 190. The patient's breathing is nonlabored. Is still at 8 L of oxygen by nasal cannula. No chest pain. No swelling lower extremities and the patient is currently on IV Solu-Medrol 60 mg every 6 hours, DuoNeb nebulized treatments [id number] and he is also on a combination of Perforomist and Pulmicort updrafts twice a day. Was placed on accommodation of Zosyn and Zithromax. Is on long-term anticoagulation with Eliquis. On today's evaluation of 09/05/2022, the patient's condition is stable essentially unchanged compared to yesterday. There is no interval improvement or worsening compared to yesterday. Remains on 8 L of oxygen by nasal cannula. He remains on Zosyn and the patient is on IV Solu-Medrol 60 mg every 8 hours. He typically responds to steroids. Meanwhile, the patient's blood sugars from this morning is 261. The patient had a pro-calcitonin level of 0.29. ProBNP level was 1460. He is tolerating diet. Is communicating. Not using the BiPAP for now. 09/06/2022, the patient is calm and comfortable on 7 L of O2 nasal cannula. Remains on bronchodilators and steroids and antibiotics. No interval worsening shortness of breath. Feels slightly better on today's evaluation. No reported cough or sputum production. No fever or chills. No other complaints otherwise for now. The patient's WBC count of 9.8 with a hemoglobin of 8.4 and a platelet count of 169. BUN is at 30 with a creatinine of 0.8 and a sodium level is at 139. Objective - Vital Signs Vital signs: Vital Signs Temp 98.2 F 09/06/22 12:14 Pulse 68 09/06/22 14:00 Resp 18 09/06/22 14:00 BP 138/77 09/06/22 12:14 Pulse Ox 95 09/06/22 12:14 FiO2 60 09/05/22 08:21 Intake & Output 09/05/22 09/06/22 09/06/22 18:59 06:59 18:59 Intake Total 1104 110 138 Output Total 1375 1725 Balance -271 -1615 138 Weight 92.5 kg Intake: IV 110 20 Invasive Line 1 10 20 Piperacillin-Tazobactam 3 100 .375 gm In Sodium Chloride 0.9% 100 ml @ 25 mls/hr IVPB Q8HR [facility] Rx# :[id number] Oral 1104 118 Output: Urine 1375 1725 Other: Voiding Method Urinal Urinal Urinal # Bowel Movements 1 - Exam GENERAL EXAM: Alert, 57-year-old male resting comfortably in bed, on 8 L high flow nasal cannula, in no apparent distress. HEAD: Normocephalic. EYES: Normal reaction of pupils, equal size. NOSE: Clear with pink turbinates. THROAT: No erythema or exudates. NECK: No masses, no JVD. CHEST: No chest wall deformity. LUNGS: Equal air entry with diffuse coarse crackles bilaterally. CVS: S1 and S2 normal with no audible murmur, regular rhythm. ABDOMEN: No hepatosplenomegaly, normal bowel sounds, no guarding or rigidity. SPINE: No scoliosis or deformity SKIN: No rashes CENTRAL NERVOUS SYSTEM: No focal deficits, tone is normal in all 4 extremities. EXTREMITIES: There is no peripheral edema. No clubbing, no cyanosis. Peripheral pulses are intact. - Labs CBC & Chem 7: 09/06/22 07:57 09/06/22 07:57 Labs: Abnormal Lab Results - Last 24 Hours (Table) 09/05/22 09/05/22 09/06/22 Range/Units 16:45 20:01 05:56 RBC (4.30-5.90) m/uL Hgb (13.0-17.5) gm/dL Hct (39.0-53.0) % MCHC (31.0-37.0) g/dL RDW (11.5-15.5) % Neutrophils # (1.3-7.7) k/uL Lymphocytes # (1.0-4.8) k/uL Potassium (3.5-5.1) mmol/L Chloride (98-107) mmol/L Carbon Dioxide (22-30) mmol/L BUN (9-20) mg/dL Glucose (74-99) mg/dL POC Glucose (mg/dL) 189 H 233 H 275 H (70-110) mg/dL Calcium (8.4-10.2) mg/dL 09/06/22 09/06/22 09/06/22 Range/Units 07:57 07:57 11:51 RBC 3.11 L (4.30-5.90) m/uL Hgb 8.4 L (13.0-17.5) gm/dL Hct 28.2 L (39.0-53.0) % MCHC 29.6 L (31.0-37.0) g/dL RDW 17.4 H (11.5-15.5) % Neutrophils # 8.9 H (1.3-7.7) k/uL Lymphocytes # 0.3 L (1.0-4.8) k/uL Potassium 3.4 L (3.5-5.1) mmol/L Chloride 90 L (98-107) mmol/L Carbon Dioxide 42 H* (22-30) mmol/L BUN 30 H (9-20) mg/dL Glucose 213 H (74-99) mg/dL POC Glucose (mg/dL) 205 H (70-110) mg/dL Calcium 7.9 L (8.4-10.2) mg/dL Microbiology - Last 24 Hours (Table) 09/03/22 11:40 Blood Culture - Preliminary Blood 09/03/22 11:55 Blood Culture - Preliminary Blood Assessment and Plan Plan: Acute on chronic hypoxic respiratory failure secondary to cicatrical organizing pneumonia which is a variant of cryptogenic organizing pneumonia, steroids responsive. The patient was discharged home on 08/30/2022 to be admitted to background to cause of ongoing shortness of breath and hypoxemia. Chest x-ray shows chronic ILD without any major interval change. Superinfection is hard to exclude. The patient is comfortable on 8 L of Oxymizer nasal cannula. He is on bronchodilators. On IV Solu-Medrol. He is on accommodation of Zosyn and Zithro max. Severe COPD Underlying coronary artery disease and previous cardiac catheterization in September 2021 Congestion heart failure, mildly impaired systolic function based on old echocardiogram from 2018 and a repeat echocardiogram from 05/04/2022 showed a preserved LV function with moderate LVH. Hypertension Dyslipidemia Schizophrenia History of seizure disorder History of obstructive sleep apnea and previous UPPP. Plan Titrate FiO2 to maintain a saturation of 90% Keep the patient 7 L of oxygen by nasal cannula to maintain a saturation above 90% and titrate FiO2 as possible Continue steroids and the patient will be taken off the IV Solu-Medrol started on prednisone burst taper at a dose of 60 mg by mouth daily Monitor the blood sugar BiPAP if needed Monitor electrolytes Aspiration precautions Advance diet We'll continue to follow Continue the antibiotic coverage We'll continue to follow. Prognosis poor. High risk for admission based on the above-mentioned comorbidities. Had a lengthy discussion with the patient and his mother. Consider hospice care and this conversation has been initiated with the patient and his family and to be continued.
[2022-09-06 16:47] LABS: Glucose,Whole Blood 247 mg/dL (70-110)
[2022-09-06] MEDS: CALCIUM CARBONATE 500 MG CHEWABLE PO SCH ×3 (17:19→21:37)
[2022-09-06 20:23] LABS: Glucose,Whole Blood 303 mg/dL (70-110)
--- NOTE | 2022-09-06 20:58 | P.PN ---
Progress Note - Text Progress Note Date: 09/06/22 This is a 57-year-old patient, follows with Dr. Carson. Chronic stable medical conditions include GERD, hyperlipidemia, hypertension, seizure disorder, hypothyroid, obstructive sleep apnea not able to use CPAP, bipolar. Smoker- until April 2022. Atrial fibrillation Patient was recently discharged from the hospital on 08/30/2022. Patient was sent home on 7 L oxygen via nasal cannula. Patient has been getting worsening shortness of breath for the past couple of weeks and increasing requirement of oxygen at home. EMS was called and patient was placed on CPAP on the way. Patient was also having increased leg swelling. Complaints of cough without any sputum production. No fever no chills. No nausea vomiting abdominal pain or diarrhea. Chest x-ray showed persistent cardiomegaly and low lung volumes with bilateral increased opacities bilaterally favoring fibrosis. Areas of acute in filtrate/edema difficult to exclude background chronic changes. Laboratory data showed WBC 12.3 hemoglobin 8.8 and platelets 193 Blood gas pH 7.47 PCO2 52 and PO2 80 Sodium 140 potassium 3.3 chloride 99 bicarb is 36 BUN 2020 creatinine 0.71 magnesium 1.8 proBNP 1460 troponin x1 negative. September 06: I assumed care of the patient today. Remains short of breath. Has a cough. Eating well. Mother at the bedside. Some sputum production. Discussed with Dr. Jj earlier. Prognosis guarded. Discussed with the patient and mother. Agreeable with current treatment to continue and hospice. Will remain on high flow oxygen. Spoke to case planner. Past medical history to include: COPD, GERD, hypertension, hyperlipidemia, some cognitive impairment, seizure disorder, obstructive sleep apnea does not use CPAP, hypothyroid, LAP-BAND with reversal, bipolar, atrial fibrillation Social history: Lives with ex-, Dottie. Smoked For 44 years stopped in April 2022 . 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 Physical examination: VITAL SIGNS: 98.6, 60, 18, 117/70, 96% on 7 L GENERAL:, , reclining in bed, short of breath , cushingoid feces EYES: Pupils equal. Conjunctiva normal. HEENT: External appearance of nose and ears normal, oral cavity grossly normal. NECK: JVD not raised; masses not palpable. HEART: First and second heart sounds are normal; no edema. LUNGS: Respiratory rate increased; decreased breath sounds , not able to speak in full sentences ABDOMEN: Soft, nontender, liver spleen not palpable, no masses palpable. PSYCH: Alert and oriented x3; mood and affect. Anxious. MUSCULOSKELETAL:No Clubbing/cyanosis;muscles-grossly intact INVESTIGATIONS, reviewed in the clinical context: White count 9.8 hemoglobin 8.4 platelets 169 potassium 3.4 bicarb 42 BUN 30 creatinine 0.8 date Previous studies: 2-D echocardiogram: April 2022 EF 55-60%. Moderate LVH. 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 prednisone 60 mg daily -Acute on chronic hypoxic respiratory failure from pneumonia: Currently 7 L - paroxysmal atrial fibrillation-sinus rhythm.: Verapamil SR 120 mg twice a day. Eliquis. Lopressor 25 mg 3 times a day - chronic hypoxic respiratory failure from COPD/organizing pneumonia Home on 6 L of oxygen -Hyperlipidemia Lipitor 40 mg a day -Hyperglycemia secondary to steroids.: Uncontrolled Levemir 20 units subcu twice a day. Follow Accu-Cheks -Mild cognitive impairment Aricept -GERD PPI -Bipolar disorder Klonopin 0.5 mg 3 times a day, Haldol -Essential hypertension Verapamil, Lopressor -No code He continues remains short of breath on steroids. Bronchodilators. Discussed with Dr. Jj. Prognosis guarded. Advance care planning: Had a lengthy discussion with the patient and the mother the bedside. Dentist and prognosis is guarded. Patient is repeated admissions. Had discussed earlier with Dr. Jj from pulmonary. Agreeable to go to hospice up [facility]. Spoke to the case planner. We'll make arrangements for tomorrow. Questions answered. They do understand with her current situation patient can still put on for some time. Of course no timeframe can be given. I spent for aCP about 25 minutes
[2022-09-07 04:08] VITALS: RESP 20; TEMP 98.3
[2022-09-07 06:06] LABS: Glucose,Whole Blood 164 mg/dL (70-110)
[2022-09-07] MEDS: PANTOPRAZOLE 40 MG TABLET PO SCH (06:42)
[2022-09-07] MEDS: INSULIN ASPART (NovoLOG) 100 UNIT/ML VIAL SQ SCH (06:42)
[2022-09-07] MEDS: predniSONE 20 MG TAB PO SCH (08:45)
[2022-09-07] MEDS: EZETIMIBE 10 MG TAB PO SCH (08:45)
[2022-09-07] MEDS: AMIODARONE 200 MG TAB PO SCH (08:45)
[2022-09-07] MEDS: CALCIUM CARBONATE 500 MG CHEWABLE PO SCH (08:45)
[2022-09-07] MEDS: VERAPAMIL SR 120 MG TABLET.ER PO SCH (08:45)
[2022-09-07] MEDS: SERTRALINE 100 MG TAB PO SCH (08:45)
[2022-09-07] MEDS: GABAPENTIN 400 MG CAP PO SCH (08:46)
[2022-09-07] MEDS: APIXABAN 5 MG TAB PO SCH (08:46)
[2022-09-07] MEDS: FUROSEMIDE 10 MG/ML 4 ML VIAL IV SCH (08:46)
[2022-09-07] MEDS: PIPERACILLIN-TAZOBACTAM 3.375 GM in SODIUM CHLORIDE 0.9% 100 ML IVPB SCH (08:46)
[2022-09-07] MEDS: ATORVASTATIN 40 MG TAB PO SCH (08:46)
[2022-09-07] MEDS: METOPROLOL TARTRATE 25 MG TAB PO SCH (08:46)
[2022-09-07] MEDS: metFORMIN 500 MG TAB PO SCH (08:46)
[2022-09-07] MEDS: ISOSORBIDE MONONITRATE ER 30 MG TAB.ER.24H PO SCH (08:46)
[2022-09-07] MEDS: LINAGLIPTIN 5 MG TABLET PO SCH (08:46)
[2022-09-07] MEDS: clonazePAM 0.5 MG TAB PO SCH (08:46)
[2022-09-07] MEDS: TAMSULOSIN 0.4 MG CAP.ER.24H PO SCH (08:47)
[2022-09-07] MEDS: INSULIN DETEMIR (LEVEMIR) 100 UNIT/ML SYR SQ SCH (08:48)
[2022-09-07 08:56] VITALS: BP 132/82
[2022-09-07] MEDS: HYDROcodone/APAP 7.5-325MG 1 EACH TAB PO PRN (08:59)
[2022-09-07] MEDS: FORMOTEROL FUMARATE 20 MCG/2 ML NEBU INHALATION SCH (09:26)
--- NOTE | 2022-09-07 09:26 | P.DS ---
Providers Date of admission: 09/03/22 15:07 Expected date of discharge: 09/07/22 Attending physician: Johnson Galan Consults: 09/03/22 15:07 Consult Physician Routine Consulting Provider: Khanh Mirza Consult Reason/Comments: COPD exacerbation Do you want consulting provider notified?: Yes Primary care physician: [facility] Course: This is a 57-year-old patient, follows with Dr. Carson. Chronic stable medical conditions include GERD, hyperlipidemia, hypertension, seizure disorder, hypothyroid, obstructive sleep apnea not able to use CPAP, bipolar. Smoker- until April 2022. Atrial fibrillation Patient was recently discharged from the hospital on 08/30/2022. Patient was sent home on 7 L oxygen via nasal cannula. Patient has been getting worsening shortness of breath for the past couple of weeks and increasing requirement of oxygen at home. EMS was called and patient was placed on CPAP on the way. Patient was also having increased leg swelling. Complaints of cough without any sputum production. No fever no chills. No nausea vomiting abdominal pain or diarrhea. Chest x-ray showed persistent cardiomegaly and low lung volumes with bilateral increased opacities bilaterally favoring fibrosis. Areas of acute infiltrate/edema difficult to exclude background chronic changes. Laboratory data showed WBC 12.3 hemoglobin 8.8 and platelets 193 Blood gas pH 7.47 PCO2 52 and PO2 80 Sodium 140 potassium 3.3 chloride 99 bicarb is 36 BUN 2020 creatinine 0.71 magnesium 1.8 proBNP 1460 troponin x1 negative. September 06: I assumed care of the patient today. Remains short of breath. Has a cough. Eating well. Mother at the bedside. Some sputum production. Discussed with Dr. Jj earlier. Prognosis guarded. Discussed with the patient and mother. Agreeable with current treatment to continue and hospice. Will remain on high flow oxygen. Spoke to rn case manager hospice. September 07: Remains on 7 L of FiO2. We'll try 6 L. Oral intake good. Respiratory status remains unchanged. Patient code to hospice inpatient at [facility]. Prednisone 60 mg. Completed course of Augmentin. Patient lives alone at home. His ex- does work and now has been helping him otherwise. Discussion and discharge planning more than 35 minutes Past medical history to include: COPD, GERD, hypertension, hyperlipidemia, some cognitive impairment, seizure disorder, obstructive sleep apnea does not use CPAP, hypothyroid, LAP-BAND with reversal, bipolar, atrial fibrillation Social history: Lives with ex-, Dottie. Smoked For 44 years stopped in April 2022 . 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 Conjunctiva normal. HEENT: External appearance of nose and ears normal, oral cavity grossly normal. NECK: JVD not raised; masses not palpable. HEART: First and second heart sounds are normal; no edema. LUNGS: Respiratory rate increased; decreased breath sounds , not able to speak in full sentences ABDOMEN: Soft, nontender, liver spleen not palpable, no masses palpable. PSYCH: Alert and oriented x3; mood and affect. Anxious. MUSCULOSKELETAL:No Clubbing/cyanosis;muscles-grossly intact INVESTIGATIONS, reviewed in the clinical context: White count 9.8 hemoglobin 8.4 platelets 169 potassium 3.4 bicarb 42 BUN 30 creatinine 0.8 date Previous studies: 2-D echocardiogram: April 2022 EF 55-60%. Moderate LVH. Lung biopsy: 06/08/2022: Organizing pneumonia with some fibrotic features/cicatrix Assessment and plan: -Acute COPD exacerbation in a previous smoker: DuoNeb, oral prednisone -Possible superimposed pneumonia, suspected gram-negative organism IV Zosyn. 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 prednisone 60 mg daily -Acute on chronic hypoxic respiratory failure from pneumonia: Currently 7 L - paroxysmal atrial fibrillation-sinus rhythm.: Verapamil SR 120 mg twice a day. Eliquis. Lopressor 25 mg 3 times a day - chronic hypoxic respiratory failure from COPD/organizing pneumonia Home on 6 L of oxygen -Hyperlipidemia Lipitor 40 mg a day -Hyperglycemia secondary to steroids.: Uncontrolled Levemir 20 units subcu twice a day. Follow Accu-Cheks -Mild cognitive impairment Aricept -GERD PPI -Bipolar disorder Klonopin 0.5 mg 3 times a day, Haldol -Essential hypertension Verapamil, Lopressor -No code/hospice Disposition: Inpatient hospice at [facility] Plan - Discharge Summary Discharge Rx Participant: No New Discharge Prescriptions: New Amoxic-Pot Clav 875-125Mg [Augmentin 875-125] 1 tab PO BID #10 tab Budesonide [Pulmicort] 1 mg INHALATION RT-BID ml Ipratropium-Albuterol Nebulize [Duoneb 0.5 mg-3 mg/3 ml Soln] 3 ml INHALATION RT-Q2H PRN each PRN Reason: Shortness Of Breath Or Wheezing Calcium Carbonate [Tums] 500 mg PO QID tab Continue Omeprazole 20 mg PO DAILY Sertraline HCl [Zoloft] 200 mg PO DAILY Donepezil [Aricept] 5 mg PO HS Atorvastatin Calcium [Lipitor] 40 mg PO DAILY Ezetimibe [Zetia] 10 mg PO DAILY #30 tab metFORMIN HCL [Glucophage] 500 mg PO BID #60 tab Budesonide-Formot 160-4.5 Mcg [Symbicort 160-4.5 Mcg Inhaler] 1 puff INHALATION RT-BID Apixaban [Eliquis] 5 mg PO BID tab Verapamil Sr [Isoptin Sr] 120 mg PO BID tab Tamsulosin HCl [Flomax] 0.4 mg PO DAILY Metoprolol Tartrate [Lopressor] 25 mg PO TID Amiodarone [Cordarone] 100 mg PO DAILY haloperidoL 2 mg PO DAILY #3 tab Gabapentin [Neurontin] 400 mg PO TID #9 cap traZODone HCL 150 mg PO HS PRN PRN Reason: Insomnia Isosorbide Mononitrate ER [Imdur] 30 mg PO DAILY Linagliptin [Tradjenta] 5 mg PO DAILY tab Insulin Lispro [humaLOG Kwikpen] See Protocol SQ ACHS predniSONE [Deltasone] 60 mg PO DAILY #100 tab Insulin Glargine,Hum.rec.anlog [Lantus Solostar Pen] 20 units SQ BID #0 clonazePAM [KlonoPIN] 0.5 mg PO TID #9 tab HYDROcodone/APAP 7.5-325MG [[place] 7.5-325] 1 tab PO TID PRN #9 tab PRN Reason: Pain Changed Ipratropium-Albuterol Nebulize [Duoneb 0.5 mg-3 mg/3 ml Soln] 3 ml INHALATION RT-Q6H #0 Furosemide [Lasix] 40 mg PO BID #1 tab Discontinued Cetirizine HCl 10 mg PO DAILY Discharge Medication List Omeprazole 20 mg PO DAILY 01/08/19 [History] Donepezil [Aricept] 5 mg PO HS 09/06/21 [History] Isosorbide Mononitrate ER [Imdur] 30 mg PO DAILY 09/06/21 [History] Sertraline HCl [Zoloft] 200 mg PO DAILY 09/06/21 [History] traZODone HCL 150 mg PO HS PRN 09/06/21 [History] Atorvastatin Calcium [Lipitor] 40 mg PO DAILY 05/03/22 [History] Ezetimibe [Zetia] 10 mg PO DAILY #30 tab 05/14/22 [Rx] metFORMIN HCL [Glucophage] 500 mg PO BID #60 tab 06/11/22 [Rx] Budesonide-Formot 160-4.5 Mcg [Symbicort 160-4.5 Mcg Inhaler] 1 puff INHALATION RT-BID 06/16/22 [History] Apixaban [Eliquis] 5 mg PO BID tab 07/03/22 [Rx] Linagliptin [Tradjenta] 5 mg PO DAILY tab 07/03/22 [Rx] Verapamil Sr [Isoptin Sr] 120 mg PO BID tab 07/03/22 [Rx] Insulin Lispro [humaLOG Kwikpen] See Protocol SQ ACHS 08/25/22 [History] Metoprolol Tartrate [Lopressor] 25 mg PO TID 08/25/22 [History] Tamsulosin HCl [Flomax] 0.4 mg PO DAILY 08/25/22 [History] Insulin Glargine,Hum.rec.anlog [Lantus Solostar Pen] 20 units SQ BID #0 08/30/22 [Rx] predniSONE [Deltasone] 60 mg PO DAILY #100 tab 08/30/22 [Rx] Amiodarone [Cordarone] 100 mg PO DAILY 09/03/22 [History] Amoxic-Pot Clav 875-125Mg [Augmentin 875-125] 1 tab PO BID #10 tab 09/07/22 [Rx] Budesonide [Pulmicort] 1 mg INHALATION RT-BID ml 09/07/22 [Rx] Calcium Carbonate [Tums] 500 mg PO QID tab 09/07/22 [Rx] Furosemide [Lasix] 40 mg PO BID #1 tab 09/07/22 [Rx] Gabapentin [Neurontin] 400 mg PO TID #9 cap 09/07/22 [Rx] HYDROcodone/APAP 7.5-325MG [[place] 7.5-325] 1 tab PO TID PRN #9 tab 09/07/22 [Rx] Ipratropium-Albuterol Nebulize [Duoneb 0.5 mg-3 mg/3 ml Soln] 3 ml INHALATION RT-Q2H PRN each 09/07/22 [Rx] Ipratropium-Albuterol Nebulize [Duoneb 0.5 mg-3 mg/3 ml Soln] 3 ml INHALATION RT-Q6H #0 09/07/22 [Rx] clonazePAM [KlonoPIN] 0.5 mg PO TID #9 tab 09/07/22 [Rx] haloperidoL 2 mg PO DAILY #3 tab 09/07/22 [Rx] Follow up Appointment(s)/Referral(s): Loco Carson MD [Primary Care Provider] - 1-2 Days
[2022-09-07] MEDS: IPRATROPIUM-ALBUTEROL 3 ML NEB INHALATION SCH (09:27)
[2022-09-07] MEDS: BUDESONIDE 1 MG/2 ML NEBU INHALATION SCH (09:27)
[2022-09-07 09:47] VITALS: PULSE 70
--- NOTE | 2022-09-11 11:47 | CDI ---
Documentation Clarification Form Date: 09/11/2022 11:36:41 AM From: Mady Mcgowan Phone: Admit Date: 09/03/2022 03:07:00 PM Patient Name: El Renteria Visit Number: [id number] Discharge Date: 09/07/2022 11:10:00 AM ATTENTION: The Clinical Documentation Specialists (CDI) and [facility] Coding Staff appreciate your assistance in clarifying documentation. Please respond to the clarification below the line at the bottom and electronically sign. The CDI & [facility] Coding staff will review the response and follow-up if needed. Please note: Queries are made part of the Legal Health Record. If you have any questions, please contact the author of this message via ITS. Dr. Johnson Galan Your patient has the documented diagnosis of unspecified CHF per ED Note and throughout the Progress Notes. Additional information regarding the type and acuity of CHF is requested. History/Risk Factors: 57yo M, AE Cicatracial organizingPNA, CHF, ACHRF, AECOPD on home O2, HTN, PAF, SHEILA, CAD, swelling in his legs, pulmonary fibrosis, mild cognitive impairment Clinical Indicators: VS/Pulse OX: 83 BNP: 1460 Echocardiogram Results: Congestionheart failure, mildlyimpairedsystolic function based on old echocardiogramfrom 2018 and a repeatechocardiogramfrom 05/04/2022 showed a preserved LV function with moderate LVH. Chest x ray: Persistingcardiomegalyand low lung volumes with bilateral increasedopacitiesbilaterally favoringfibrosis. Areas of acuteinfiltrate and/oredemadifficult to exclude on background chronic changes. No significant change from most recentx-ray. Treatment: Patient also continued on IV Lasix and recommendedfollow-uplabs andreplaceelectrolytes per protocol In your professional opinion, can you please clarify the type and acuity of CHF if known? [ ] Acute Systolic Heart Failure (reduced EF) [ ] Chronic Systolic Heart Failure (reduced EF) [ + ] Acute on Chronic Systolic Heart Failure (reduced EF) [ ] Acute Diastolic Heart Failure (preserved EF) [ ] Chronic Diastolic Heart Failure (preserved EF) [ ] Acute on Chronic Diastolic Heart Failure (preserved EF) [ ] Acute Systolic & Diastolic Heart Failure [ ] Chronic Systolic & Diastolic Heart Failure [ ] Acute on Chronic Heart Failure Systolic & Diastolic Heart Failure [ ] Other, please specify [ ] Unable to determine (Template Last Revised: May 2020) MTDD
== END 2022-09-07 11:10 | disposition hospice, inpatient (51) | DRG 196 ==
LOC: EC 11:39 → SUPCPDRO 11:39 → 3SCARD 15:07
PROVIDERS: ADMIT Hospitalist; ATTEND Hospitalist
PROC: 5A0935A Assistance with Respiratory Ventilation, Less than 24 Consecutive Hours, High Flow/Velocity Cannula (ICD-10-PCS; principal; 2022-09-04)
DX: J84.116 Cryptogenic organizing pneumonia (principal); I50.23 Acute on chronic systolic (congestive) heart failure; J96.21 Acute and chronic respiratory failure with hypoxia; J44.1 Chronic obstructive pulmonary disease with (acute) exacerbation; M48.56XA Collapsed vertebra, not elsewhere classified, lumbar region, initial encounter for fracture; I11.0 Hypertensive heart disease with heart failure; J84.10 Pulmonary fibrosis, unspecified; E03.9 Hypothyroidism, unspecified; E11.65 Type 2 diabetes mellitus with hyperglycemia; G40.909 Epilepsy, unspecified, not intractable, without status epilepticus; F31.9 Bipolar disorder, unspecified; I48.0 Paroxysmal atrial fibrillation; G31.84 Mild cognitive impairment of uncertain or unknown etiology; T38.0X5A Adverse effect of glucocorticoids and synthetic analogues, initial encounter; Z51.5 Encounter for palliative care; Z99.81 Dependence on supplemental oxygen; Z79.4 Long term (current) use of insulin; J98.4 Other disorders of lung; I49.1 Atrial premature depolarization; G47.33 Obstructive sleep apnea (adult) (pediatric); I25.10 Atherosclerotic heart disease of native coronary artery without angina pectoris; E78.5 Hyperlipidemia, unspecified; K21.9 Gastro-esophageal reflux disease without esophagitis; F14.91 Cocaine use, unspecified, in remission; Z86.14 Personal history of Methicillin resistant Staphylococcus aureus infection; Z87.01 Personal history of pneumonia (recurrent); Z79.899 Other long term (current) drug therapy; Z79.84 Long term (current) use of oral hypoglycemic drugs; Z79.52 Long term (current) use of systemic steroids; Z79.01 Long term (current) use of anticoagulants; Z79.51 Long term (current) use of inhaled steroids; Z87.891 Personal history of nicotine dependence
CPT/HCPCS: 36415; 36600; 71045; 80048; 80053; 82805; 83036; 83605; 83735; 83880; 84145; 84484; 85025; 85610; 85730; 87040; 93005; 94640; 94660; 94760; 96365; 96366; 96367; 96368; 96375; 96376; 99291